=== PATIENT | female | born 1945 | race Caucasian/White ===

== ENCOUNTER 2020-01-25 08:00 | Outpatient (REF) | payer BC, SELFPAY ==
[2020-01-25 10:26] LABS: MANUAL DIFF FLAG NO
[2020-01-25 10:32] LABS: Basophils Absolute Auto 0.1 X10*3/uL (0.0-0.2); Basophils Percent Auto 0.8 % (0-2); Eosinophils Absolute Auto 0.2 X10*3/uL (0.0-0.4); Eosinophils Percent Auto 3.8 % (0-4); Hemoglobin 11.5 g/dl (12.0-16.0); Imm Gran Abs Auto 0.02 X10*3/uL (0.00-0.03); Imm Gran Pct Auto 0.3 % (0.0-0.4); Lymphocytes Absolute Auto 1.6 X10*3/uL (1.2-4.9); Lymphocytes Percent Auto 26.4 % (20-40); Mean Corpuscular HGB Conc 32.9 g/dl (31.0-35.0); Mean Corpuscular Hemoglobin 29.6 pg (27.0-33.0); Mean Corpuscular Volume 90.2 fL (80-98); Mean Platelet Volume 10.8 fL (9.4-12.3); Monocytes Absolute Auto 0.6 X10*3/uL (0.1-1.2); Monocytes Percent Auto 9.8 % (2-11); Neutrophils Absolute Auto 3.6 X10*3/uL (2.0-8.3); Neutrophils Percent Auto 58.9 % (45-73); Platelet Count 200 X10*3/uL (160-400); Red Blood Count 3.88 X10*6/uL (4.20-5.50); Red Cell Distribution Width 12.2 % (11.0-16.0); White Blood Count 6.1 X10*3/uL (4.8-10.8)
[2020-01-25 10:39] LABS: Glucose Urine UA NEG (NEG); Leukocyte Esterase Urine TRACE (NEG); Nitrite Urine NEG (NEG); Urine Blood NEG (NEG); Urine Ketones NEG (NEG); Urine Protein NEG (NEG-TRACE)
[2020-01-25 10:46] LABS: Appearance Urine CLEAR; Color Urine YELLOW
[2020-01-25 10:54] LABS: RBC Urine 0 /HPF (0); Renal Epithelial Cells Urine 1+ /LPF
[2020-01-25 10:56] LABS: Alanine Aminotransferase 18 U/L (0-31); Albumin Level 3.8 g/dL (3.5-5.0); Alkaline Phosphatase 45 U/L (39-117); Anion Gap 11 (12-20); Aspartate Amino Transferase 22 U/L (5-31); Bilirubin Total 0.7 mg/dL (0.0-1.0); Blood Urea Nitrogen 17 mg/dL (9-16); Calcium 8.6 mg/dL (8.4-10.2); Carbon Dioxide 29 mmol/L (22-29); Chloride 104 mmol/L (96-108); Cholesterol 143 mg/dL; Estimated Glomerular Filt Rate > 60; Glucose Fasting 91 mg/dL (60-99); HDL Cholesterol 38 mg/dL; LDL Cholesterol Calculated 78 mg/dl; Potassium 3.9 mmol/l (3.3-5.1); Sodium 140 mmol/L (135-145); Total Protein 6.4 g/dL (6.5-8.0); Triglycerides 138 mg/dL
[2020-01-25 11:11] LABS: Vitamin D 25-OH Total 60.5 ng/mL (>30)
== END 2020-01-25 08:01 | disposition home or self-care (01) ==
LOC: HO.10HDL 08:00
PROVIDERS: Visit Provider Internal Medicine
DX: E78.5 Hyperlipidemia, unspecified (principal); I10 Essential (primary) hypertension; K22.70 Barrett's esophagus without dysplasia; R01.1 Cardiac murmur, unspecified; D64.9 Anemia, unspecified; M85.80 Other specified disorders of bone density and structure, unspecified site; E55.9 Vitamin D deficiency, unspecified
CPT/HCPCS: 36415; 80053; 80061; 81001; 82306; 85025; 87086

== ENCOUNTER 2020-05-15 07:54 | Outpatient (REF) | payer BC, SELFPAY ==
[2020-05-15 10:18] LABS: MANUAL DIFF FLAG NO
[2020-05-15 10:23] LABS: Basophils Percent Auto 0.5 % (0-2); Eosinophils Absolute Auto 0.3 X10*3/uL (0.0-0.4); Eosinophils Percent Auto 4.3 % (0-4); Hematocrit 35.5 % (37-47); Hemoglobin 11.7 g/dl (12.0-16.0); Imm Gran Abs Auto 0.01 X10*3/uL (0.00-0.03); Imm Gran Pct Auto 0.2 % (0.0-0.4); Lymphocytes Absolute Auto 1.8 X10*3/uL (1.2-4.9); Lymphocytes Percent Auto 28.4 % (20-40); Mean Corpuscular Hemoglobin 30.3 pg (27.0-33.0); Mean Platelet Volume 10.6 fL (9.4-12.3); Monocytes Absolute Auto 0.6 X10*3/uL (0.1-1.2); Neutrophils Absolute Auto 3.7 X10*3/uL (2.0-8.3); Neutrophils Percent Auto 57.6 % (45-73); Platelet Count 196 X10*3/uL (160-400); Red Blood Count 3.86 X10*6/uL (4.20-5.50); Red Cell Distribution Width 12.7 % (11.0-16.0); White Blood Count 6.3 X10*3/uL (4.8-10.8)
[2020-05-15 10:43] LABS: Glucose Urine UA NEG (NEG); Leukocyte Esterase Urine NEG (NEG); Nitrite Urine NEG (NEG); Urine Blood NEG (NEG); Urine Ketones NEG (NEG); Urine Protein NEG (NEG-TRACE)
[2020-05-15 10:53] LABS: Appearance Urine CLEAR; Color Urine YELLOW
[2020-05-15 10:59] LABS: Alanine Aminotransferase 15 U/L (0-31); Albumin Level 3.8 g/dL (3.5-5.0); Alkaline Phosphatase 44 U/L (39-117); Anion Gap 10 (12-20); Aspartate Amino Transferase 20 U/L (5-31); Bilirubin Total 0.6 mg/dL (0.0-1.0); Blood Urea Nitrogen 18 mg/dL (9-16); Calcium 9.1 mg/dL (8.4-10.2); Carbon Dioxide 30 mmol/L (22-29); Chloride 104 mmol/L (96-108); Cholesterol 146 mg/dL; Estimated Glomerular Filt Rate > 60; Glucose Fasting 88 mg/dL (60-99); HDL Cholesterol 39 mg/dL; LDL Cholesterol Calculated 83 mg/dl; Sodium 140 mmol/L (135-145); Total Protein 6.4 g/dL (6.5-8.0); Triglycerides 123 mg/dL
[2020-05-15 11:06] LABS: TSH reflex Free T4 2.95 uIU/mL (0.32-4.0); Vitamin D 25-OH Total 55.3 ng/mL (>30)
[2020-05-19 06:32] LABS: Folate > 20.0 ng/mL (> or = 4.0); Vitamin B12 1058 pg/mL (200-900)
== END 2020-05-15 07:55 | disposition home or self-care (01) ==
LOC: HO.10HDL 07:54
PROVIDERS: Visit Provider Internal Medicine
DX: D64.9 Anemia, unspecified (principal); R06.00 Dyspnea, unspecified; I10 Essential (primary) hypertension; K22.70 Barrett's esophagus without dysplasia; E78.00 Pure hypercholesterolemia, unspecified; E55.9 Vitamin D deficiency, unspecified; E66.3 Overweight
CPT/HCPCS: 36415; 80053; 80061; 81003; 82306; 82607; 82746; 83880; 84443; 85025

== ENCOUNTER 2020-05-24 11:34 | Outpatient (REF) | payer BC, SELFPAY ==
--- NOTE | ~2020-05-24 | XR_ITS ---
EXAMINATION: XR CHEST CLINICAL INFORMATION: Dyspnea COMPARISON: None TECHNIQUE: 2 views of the chest were obtained. FINDINGS: The cardiac and mediastinal contours are normal. The lungs are clear. There is no pleural effusion or pneumothorax. There are degenerative changes of the spine. XR/XR chest 2V IMPRESSION: Unremarkable examination.
[2020-05-24 14:15] LABS: B Type Natriuretic Peptide 186 pg/mL (<100)
== END 2020-05-24 11:35 | disposition home or self-care (01) ==
LOC: HO.10HDL 11:34
PROVIDERS: Visit Provider Internal Medicine
DX: R06.00 Dyspnea, unspecified (principal)
CPT/HCPCS: 36415; 71046; 83880

== ENCOUNTER 2020-08-15 10:11 | Outpatient (REF) | payer BC, SELFPAY ==
--- NOTE | ~2020-08-15 | MM_ITS ---
EXAMINATION: MM SCREENING DIGITAL BREAST TOMOSYNTHESIS, BILATERAL CLINICAL INFORMATION: Screening. Asymptomatic. The lifetime risk of breast cancer based on the Tyrer-Cuzick Model is 5%. COMPARISON: Mammography: 04/22/2019, 03/03/2018, 06/12/2017, targeted left breast ultrasound 03/03/2018. TECHNIQUE: Digital breast tomosynthesis is performed in both the craniocaudal and mediolateral oblique views along with computer-aided detection (CAD). Synthesized 2D images are generated from the tomosynthesis. FINDINGS: There are scattered areas of fibroglandular density (ACR BI-RADS breast composition Category b). There are no significant masses, abnormal calcifications, or other abnormalities. Low left axillary tail node is similar to prior studies. There are no significant changes. MM/MM tomosynthesis screening BI IMPRESSION: No mammographic evidence of malignancy. ASSESSMENT: BI-RADS 2: Benign RECOMMENDATION: Routine annual mammography screening. This patient's information was entered into a reminder system with a target due date for their next mammogram.
== END 2020-08-15 10:12 | disposition home or self-care (01) ==
LOC: HO.MAMMO 10:11
PROVIDERS: Visit Provider Internal Medicine
DX: Z12.31 Encounter for screening mammogram for malignant neoplasm of breast (principal)
CPT/HCPCS: 77063; 77067

== ENCOUNTER 2020-09-14 10:10 | Outpatient (REF) | payer BC, SELFPAY ==
[2020-09-14 11:17] LABS: MANUAL DIFF FLAG NO
[2020-09-14 11:30] LABS: Glucose Urine UA NEG (NEG); Leukocyte Esterase Urine 1+ (NEG); Nitrite Urine NEG (NEG); PH 7.5 (5.0-8.0); UACC Culture Trigger YES; Urine Blood NEG (NEG); Urine Ketones NEG (NEG); Urine Protein NEG (NEG-TRACE)
[2020-09-14 11:31] LABS: Appearance Urine CLEAR; Color Urine YELLOW
[2020-09-14 11:40] LABS: RBC Urine 0 /HPF (0); Squamous Epithelial Cell Urine TRACE /LPF
[2020-09-14 11:45] LABS: Basophils Percent Auto 0.4 % (0-2); Eosinophils Absolute Auto 0.3 X10*3/uL (0.0-0.4); Eosinophils Percent Auto 3.7 % (0-4); Hematocrit 35.6 % (37-47); Hemoglobin 11.4 g/dl (12.0-16.0); Imm Gran Abs Auto 0.03 X10*3/uL (0.00-0.03); Imm Gran Pct Auto 0.4 % (0.0-0.4); Lymphocytes Absolute Auto 1.8 X10*3/uL (1.2-4.9); Lymphocytes Percent Auto 22.7 % (20-40); Mean Corpuscular Hemoglobin 28.6 pg (27.0-33.0); Mean Corpuscular Volume 89.4 fL (80-98); Mean Platelet Volume 10.5 fL (9.4-12.3); Monocytes Absolute Auto 0.7 X10*3/uL (0.1-1.2); Monocytes Percent Auto 8.4 % (2-11); Neutrophils Percent Auto 64.4 % (45-73); Platelet Count 225 X10*3/uL (160-400); Red Blood Count 3.98 X10*6/uL (4.20-5.50); Red Cell Distribution Width 12.3 % (11.0-16.0); White Blood Count 7.8 X10*3/uL (4.8-10.8)
[2020-09-14 11:53] LABS: Alanine Aminotransferase 17 U/L (0-31); Alkaline Phosphatase 47 U/L (39-117); Anion Gap 10 (12-20); Aspartate Amino Transferase 24 U/L (5-31); Bilirubin Total 0.5 mg/dL (0.0-1.0); Blood Urea Nitrogen 15 mg/dL (9-16); Calcium 9.2 mg/dL (8.4-10.2); Carbon Dioxide 28 mmol/L (22-29); Chloride 104 mmol/L (96-108); Cholesterol 157 mg/dL; Estimated Glomerular Filt Rate > 60; Glucose Fasting 89 mg/dL (60-99); HDL Cholesterol 43 mg/dL; LDL Cholesterol Calculated 89 mg/dl; Sodium 138 mmol/L (135-145); Total Protein 6.6 g/dL (6.5-8.0); Triglycerides 128 mg/dL
[2020-09-14 12:06] LABS: TSH reflex Free T4 1.54 uIU/mL (0.32-4.0); Vitamin D 25-OH Total 61.5 ng/mL (>30)
== END 2020-09-14 10:11 | disposition home or self-care (01) ==
LOC: HO.LAB 10:10
PROVIDERS: PCP Internal Medicine; Visit Provider Internal Medicine
DX: E55.9 Vitamin D deficiency, unspecified (principal); M85.80 Other specified disorders of bone density and structure, unspecified site; D64.9 Anemia, unspecified; I10 Essential (primary) hypertension; K22.70 Barrett's esophagus without dysplasia; E78.00 Pure hypercholesterolemia, unspecified; E66.3 Overweight
CPT/HCPCS: 36415; 80053; 80061; 81001; 81003; 82306; 84443; 85025; 87086

== ENCOUNTER 2020-11-17 18:34 | Outpatient (REF) | payer BC, SELFPAY | END 2020-11-17 18:35 | disposition home or self-care (01) | LOC: HO.LNP 18:34 | PROVIDERS: Visit Provider Family Medicine | DX: N39.0 Urinary tract infection, site not specified (principal); R30.0 Dysuria | CPT/HCPCS: 87086; 87088; 87186 ==

== ENCOUNTER 2021-01-15 10:04 | Outpatient (REF) | payer BC, SELFPAY ==
[2021-01-15 14:00] LABS: MANUAL DIFF FLAG NO
[2021-01-15 14:09] LABS: Appearance Urine CLEAR; Color Urine YELLOW; Glucose Urine UA NEG (NEG); Leukocyte Esterase Urine NEG (NEG); Nitrite Urine NEG (NEG); Specific Gravity - Urine <= 1.005 (1.005-1.025); Urine Blood NEG (NEG); Urine Ketones NEG (NEG); Urine Protein NEG (NEG-TRACE)
[2021-01-15 14:25] LABS: Alanine Aminotransferase 15 U/L (0-31); Albumin Level 3.7 g/dL (3.5-5.0); Alkaline Phosphatase 40 U/L (39-117); Anion Gap 10 (12-20); Aspartate Amino Transferase 23 U/L (5-31); Bilirubin Total 0.4 mg/dL (0.0-1.0); Blood Urea Nitrogen 20 mg/dL (9-16); Calcium 8.8 mg/dL (8.4-10.2); Carbon Dioxide 26 mmol/L (22-29); Chloride 104 mmol/L (96-108); Cholesterol 148 mg/dL; Estimated Glomerular Filt Rate > 60; Glucose Fasting 93 mg/dL (60-99); HDL Cholesterol 37 mg/dL; Iron 52 mcg/dL (30-160); LDL Cholesterol Calculated 83 mg/dl; Percent Iron Saturation 13 % (15-50); Potassium 4.2 mmol/L (3.3-5.1); Sodium 136 mmol/L (135-145); Total Iron Binding Capacity 416 mcg/dL (228-428); Triglycerides 143 mg/dL; Unsaturated Iron Binding 364 ug/dL
[2021-01-15 14:32] LABS: Basophils Percent Auto 0.4 % (0-2); Eosinophils Absolute Auto 0.3 X10*3/uL (0.0-0.4); Eosinophils Percent Auto 2.8 % (0-4); Hematocrit 22.4 % (37-47); Imm Gran Abs Auto 0.09 X10*3/uL (0.00-0.03); Imm Gran Pct Auto 0.9 % (0.0-0.4); Lymphocytes Absolute Auto 2.3 X10*3/uL (1.2-4.9); Lymphocytes Percent Auto 22.8 % (20-40); Mean Corpuscular Hemoglobin 30.1 pg (27.0-33.0); Mean Corpuscular Volume 91.1 fL (80-98); Mean Platelet Volume 10.7 fL (9.4-12.3); Monocytes Absolute Auto 0.9 X10*3/uL (0.1-1.2); Monocytes Percent Auto 8.6 % (2-11); Neutrophils Absolute Auto 6.4 X10*3/uL (2.0-8.3); Neutrophils Percent Auto 64.5 % (45-73); Platelet Count 244 X10*3/uL (160-400); Red Blood Count 2.46 X10*6/uL (4.20-5.50); Red Cell Distribution Width 13.7 % (11.0-16.0); White Blood Count 9.9 X10*3/uL (4.8-10.8)
[2021-01-15 14:35] LABS: Hemoglobin 7.4 g/dl (12.0-16.0)
[2021-01-15 14:46] LABS: TSH reflex Free T4 3.27 uIU/mL (0.32-4.0); Vitamin D 25-OH Total 56.5 ng/mL (>30)
[2021-01-15 15:03] LABS: Folate 18.7 ng/mL (> or = 4.0); Vitamin B12 575 pg/mL (200-900)
== END 2021-01-15 10:05 | disposition home or self-care (01) ==
LOC: HO.10HDL 10:04
PROVIDERS: Visit Provider Internal Medicine
DX: E78.00 Pure hypercholesterolemia, unspecified (principal); D64.9 Anemia, unspecified; I10 Essential (primary) hypertension; K22.70 Barrett's esophagus without dysplasia; E66.3 Overweight; E55.9 Vitamin D deficiency, unspecified; E53.8 Deficiency of other specified B group vitamins
CPT/HCPCS: 36415; 80053; 80061; 81003; 82306; 82607; 82746; 83540; 84443; 85025

== ENCOUNTER 2021-01-21 11:33 | Inpatient (IN) | payer BC, SELFPAY ==
[2021-01-21] VITALS (11 sets, daily range): BP systolic 119–153; BP diastolic 43–64; PULSE 70–140; RESP 14–20; TEMP 36.7–37.3; O2SAT 98–100; BMI 26.7
--- NOTE | 2021-01-21 | ECG_ITS ---
Test Reason : palpatations Blood Pressure : / mmHG Vent. Rate : 104 BPM Atrial Rate : 104 BPM P-R Int : 152 ms QRS Dur : 098 ms QT Int : 352 ms P-R-T Axes : 039 023 127 degrees QTc Int : 462 ms Sinus tachycardia Left ventricular hypertrophy with repolarization abnormality ( R in aVL , Sokolow-Gtz ) Abnormal ECG No previous ECGs available Referred By: Princess Joseph Electronically Signed By:MACI VILLEDA MD
--- NOTE | ~2021-01-21 | XR_ITS ---
EXAMINATION: XR CHEST CLINICAL INFORMATION: Shortness of breath COMPARISON: Previous chest x-ray most recent May 2020 TECHNIQUE: Frontal view of the chest was obtained. FINDINGS: The cardiac and mediastinal contours are normal. The lungs are clear. There is no pleural effusion. There are degenerative changes of the spine. XR/XR chest 1V IMPRESSION: Unremarkable examination.
[2021-01-21 12:57] LABS: MANUAL DIFF FLAG NO
[2021-01-21 12:59] LABS: Basophils Percent Auto 0.3 % (0-2); Eosinophils Absolute Auto 0.1 X10*3/uL (0.0-0.4); Eosinophils Percent Auto 0.5 % (0-4); Imm Gran Abs Auto 0.12 X10*3/uL (0.00-0.03); Imm Gran Pct Auto 0.9 % (0.0-0.4); Lymphocytes Absolute Auto 1.8 X10*3/uL (1.2-4.9); Lymphocytes Percent Auto 13.8 % (20-40); Mean Corpuscular HGB Conc 31.5 g/dl (31.0-35.0); Mean Corpuscular Hemoglobin 28.2 pg (27.0-33.0); Mean Corpuscular Volume 89.6 fL (80.0-98.0); Mean Platelet Volume 9.5 fL (9.4-12.3); NRBC Pct Auto 0.5 /100WBC (0.0-0.2); Neutrophils Absolute Auto 10.02 x10*3/uL (2.0-8.3); Neutrophils Percent Auto 76.5 % (45-73); Platelet Count 237 X10*3/uL (160-400); Red Blood Count 1.63 X10*6/uL (4.20-5.50); Red Cell Distribution Width 13.9 % (11.0-16.0); White Blood Count 13.1 X10*3/uL (4.8-10.8)
[2021-01-21 13:11] LABS: Hematocrit 14.6 % (37.0-47.0); Hemoglobin 4.6 g/dl (12.0-16.0)
[2021-01-21 13:12] LABS: Anion Gap 10 (12-20); Blood Urea Nitrogen 20 mg/dL (9-16); Calcium 8.5 mg/dL (8.4-10.2); Carbon Dioxide 24 mmol/L (22-29); Chloride 105 mmol/L (96-108); Creatinine Clr Calc Pharmacy 61.8; Estimated Glomerular Filt Rate > 60; Glucose Random 139 mg/dL (60-115); Potassium 4.3 mmol/L (3.3-5.1); Sodium 135 mmol/L (135-145)
--- NOTE | 2021-01-21 13:25 | ED_ITS ---
HPI - General Adult General Chief complaint: Dyspnea Stated complaint: sob Time Seen by Provider: 01/21/21 13:22 Source: patient Mode of arrival: ambulatory Limitations: no limitations History of Present Illness HPI narrative: 76-year-old female came in for evaluation of exertional dyspnea. Patient's symptoms started 4 days ago patient normally walk about 1 mile a day, for 4 days been having hard time to walk without difficulty breathing and some chest pain, patient decline bleeding from anywhere, claims she has normal bowel movements, decline using any anticoagulation patient appears to be pale, and found to have a low hemoglobin in the emergency department. Related Data Previous Rx's Medication Instructions Recorded amlodipine 2.5 mg tablet 2.5 mg PO DAILY 90 Days #90 tab 09/22/20 atorvastatin 10 mg tablet 10 mg PO DAILY 90 Days #90 tab 09/22/20 cholecalciferol (vitamin D3) 25 25 mcg PO DAILY 90 Days #90 cap 09/22/20 mcg (1,000 unit) capsule cyanocobalamin (vitamin B-12) 1,000 mcg PO DAILY 90 Days #90 tab 09/22/20 1,000 mcg tablet (Vitamin B-12) hydrochlorothiazide 12.5 mg tablet 12.5 mg PO DAILY 90 Days #90 tab 09/22/20 lisinopril 40 mg tablet 40 mg PO DAILY 90 Days #90 tab 09/22/20 omeprazole 20 mg capsule,delayed 20 mg PO DAILY 90 Days #90 cap 09/22/20 release potassium chloride 8 mEq 8 meq PO DAILY 90 Days #90 cap 09/22/20 capsule,extended release raloxifene 60 mg tablet 60 mg PO DAILY 90 Days #90 tab 09/22/20 Allergies Allergy/AdvReac Type Severity Reaction Status Date / Time enflurane [ENFLURANE] Allergy Severe Per Verified 11/17/20 10:27 Patient Liver toxicity piperacillin [Zosyn] Allergy Unknown Unknown Verified 11/17/20 10:27 tazobactam [Zosyn] Allergy Unknown Unknown Verified 11/17/20 10:27 Review of Systems Review of Systems: All other systems are reviewed and are negative Constitutional: Reports as per HPI and Reports no additional constitutional complaints Eyes: Reports as per HPI and Reports no additional eye complaints Reports system reviewed and no additional complaints, except as documented Cardiovascular: Reports as per HPI and Reports no additional cardiovascular complaints Respiratory: Reports as per HPI and Reports no additional respiratory complaints Gastrointestinal: Reports as per HPI and Reports no additional gastrointestinal complaints Genitourinary: Reports no additional female genitourinary complaints Musculoskeletal: Reports no additional musculoskeletal complaints Skin/Breast: Reports system reviewed and no additional complaints, except as docu Psychiatric: Reports no additional psychiatric complaints Endocrine: Reports no additional endocrine complaints Hematologic/Lymphatic: Reports no additional hematologic/lymphatic complaints Allergic/Immunologic: Reports no additional allergic/immunologic complaints Reports system reviewed and no additional complaints, except as documented and Reports Abnormal speech present [facility] Past Medical History Medical History Anemia Sevilla's esophagus Benign essential hypertension Cardiac murmur Drug induced constipation Hiatal hernia Osteopenia Overweight (BMI 25.0-29.9) Primary osteoarthritis of hand Pure hypercholesterolemia Vitamin B12 deficiency Vitamin D deficiency Surgical History H/O endoscopy History of appendectomy History of hysterectomy Family History Family History Father Hypertension Mother Stroke Social History Social History Housing: House Alcohol intake: never Patient Tobacco Use Status: Never used Tobacco Second Hand Smoke Exposure: Yes Use of substances other than those prescribed or required for medical reasons: No Advance Directives: Yes Advance Directives Information Provided: Yes Advance Directives on File: No service: No Current occupational status: retired Physical Exam Vital Signs: Vital Signs: Last Vital Signs Temp 98.0 F 01/21/21 11:39 Pulse 108 H 01/21/21 14:08 Resp 18 01/21/21 14:08 BP 148/58 H 01/21/21 14:08 Pulse Ox 99 01/21/21 14:08 Body Mass Index 26.7 Vital signs have been reviewed as appeared to be correct. Blood pressure normal. Heart rate elevated. Respiration rate normal. Temperature normal. Oxygen saturation normal. Appearance: Alert. Oriented X3. No acute distress. Head: Normal external exam. Normocephalic. Atraumatic. No [place] signs noted. No raccoon eyes noted Eyes: PERRLA. EOMI. Conjunctiva and sclera normal. Eyelids normal. ENT: TM's Normal. Pharynx normal. Uvula midline. Moist mucous membranes. No tr ismus noted. No drooling noted. No muffled voice noted. Neck: Normal inspection. Neck supple. FROM. No adenopathy. Thyroid Normal. No meningeal signs. No neck mass noted. CVS: Normal heart rate and rhythm. Heart sound normal. No murmurs noted. Pulses normal throughout. Respiratory: No respiratory distress. Painless inspiration. Breath sounds normal. No wheezes/rales/rhonchi noted. Chest nontender. No accessory muscle usage noted or decreased air movement noted. Abdomen: Soft and nontender. Bowel sounds normal in all 4 quadrants. No distention noted. No organomegaly noted. No visible injury noted. Rectal exam: No visible external hemorrhoids, no palpable internal hemorrhoid, no fissure fistula, black stool in the vault with guaiac positive. Back: No CVA tenderness. Full range of motion noted. Skin: Skin warm and dry. Pale. Normal skin turgor. No rashes/lesions/lacerations noted. Extremities: No lower extremity edema. Extremities exhibit normal range of motion. Extremities nontender. Neuro: Oriented X 3. Cranial nerve exam: II-XII are grossly intact No motor deficit. No sensory deficit. Reflexes normal. Course Course Course Narrative: Assessment and plan plan 76-year-old female came in for evaluation of exertional dyspnea for the past 4 days and found to have severe anemia that would require 2 units of blood, stool also found to be black patient also takes supplemental oral iron pills, no anticoagulation, admit for further GI consultation and blood transfusion. Medical Decision Making Lab Data Lab results reviewed: Yes I reviewed the patient's lab results. Result diagrams: 01/21/21 12:53 01/21/21 12:53 Labs: Lab Results 01/21/21 01/21/21 01/21/21 Range/Units 12:53 12:53 13:07 WBC 13.1 H (4.8-10.8) X10*3/uL RBC 1.63 L (4.20-5.50) X10*6/uL Hgb 4.6 L* (12.0-16.0) g/dl Hct 14.6 L* (37.0-47.0) % MCV 89.6 (80.0-98.0) fL MCH 28.2 (27.0-33.0) pg MCHC 31.5 (31.0-35.0) g/dl RDW 13.9 (11.0-16.0) % Plt Count 237 (160-400) X10*3/uL MPV 9.5 (9.4-12.3) fL Immature Gran % (Auto) 0.9 H (0.0-0.4) % Neut % (Auto) 76.5 H (45-73) % Lymph % (Auto) 13.8 L (20-40) % [place] % (Auto) 8.0 (2-11) % Eos % (Auto) 0.5 (0-4) % Baso % (Auto) 0.3 (0-2) % Lymph # (Auto) 1.8 (1.2-4.9) X10*3/uL [place] # (Auto) 1.0 (0.1-1.2) X10*3/uL Eos # (Auto) 0.1 (0.0-0.4) X10*3/uL Baso # (Auto) 0.0 (0.0-0.2) X10*3/uL Abs Immat Gran (auto) 0.12 H (0.00-0.03) X10*3/uL Absolute Neuts (auto) 10.02 H (2.0-8.3) x10*3/uL Absolute Nucleated RBC 0.070 H (0.0-0.012) X10*3/uL Nucleated RBC % (auto) 0.5 H (0.0-0.2) /100WBC PT (9.9-13.0) SEC INR (0.9-1.1) APTT (24.1-38.0) SEC Sodium 135 (135-145) mmol/L Potassium 4.3 (3.3-5.1) mmol/L Chloride 105 (96-108) mmol/L Carbon Dioxide 24 (22-29) mmol/L Anion Gap 10 L (12-20) BUN 20 H (9-16) mg/dL Creatinine 0.79 (0.5-1.4) mg/dL Estim Creat Clear Calc 61.8 Estimated GFR > 60 Random Glucose 139 H (60-115) mg/dL Calcium 8.5 (8.4-10.2) mg/dL Troponin I High Sens (<3.5-17.0) ng/L B-Natriuretic Peptide (<100) pg/mL Stool Occult Blood (NEGATIVE) COVID-19 (TIARA) Negative (Negative) COVID-19 Clin Com See Note Blood Type Antibody Screen Crossmatch 01/21/21 01/21/21 01/21/21 Range/Units 13:32 13:32 13:47 WBC (4.8-10.8) X10*3/uL RBC (4.20-5.50) X10*6/uL Hgb (12.0-16.0) g/dl Hct (37.0-47.0) % MCV (80.0-98.0) fL MCH (27.0-33.0) pg MCHC (31.0-35.0) g/dl RDW (11.0-16.0) % Plt Count (160-400) X10*3/uL MPV (9.4-12.3) fL Immature Gran % (Auto) (0.0-0.4) % Neut % (Auto) (45-73) % Lymph % (Auto) (20-40) % [place] % (Auto) (2-11) % Eos % (Auto) (0-4) % Baso % (Auto) (0-2) % Lymph # (Auto) (1.2-4.9) X10*3/uL [place] # (Auto) (0.1-1.2) X10*3/uL Eos # (Auto) (0.0-0.4) X10*3/uL Baso # (Auto) (0.0-0.2) X10*3/uL Abs Immat Gran (auto) (0.00-0.03) X10*3/uL Absolute Neuts (auto) (2.0-8.3) x10*3/uL Absolute Nucleated RBC (0.0-0.012) X10*3/uL Nucleated RBC % (auto) (0.0-0.2) /100WBC PT 11.8 (9.9-13.0) SEC INR 1.0 (0.9-1.1) APTT 27.5 (24.1-38.0) SEC Sodium (135-145) mmol/L Potassium (3.3-5.1) mmol/L Chloride (96-108) mmol/L Carbon Dioxide (22-29) mmol/L Anion Gap (12-20) BUN (9-16) mg/dL Creatinine (0.5-1.4) mg/dL Estim Creat Clear Calc Estimated GFR Random Glucose (60-115) mg/dL Calcium (8.4-10.2) mg/dL Troponin I High Sens 15.0 (<3.5-17.0) ng/L B-Natriuretic Peptide 293 H (<100) pg/mL Stool Occult Blood (NEGATIVE) COVID-19 (TIARA) (Negative) COVID-19 Clin Com Blood Type A Positive Antibody Screen NEGATIVE Crossmatch See Detail 01/21/21 Range/Units 14:10 WBC (4.8-10.8) X10*3/uL RBC (4.20-5.50) X10*6/uL Hgb (12.0-16.0) g/dl Hct (37.0-47.0) % MCV (80.0-98.0) fL MCH (27.0-33.0) pg MCHC (31.0-35.0) g/dl RDW (11.0-16.0) % Plt Count (160-400) X10*3/uL MPV (9.4-12.3) fL Immature Gran % (Auto) (0.0-0.4) % Neut % (Auto) (45-73) % Lymph % (Auto) (20-40) % [place] % (Auto) (2-11) % Eos % (Auto) (0-4) % Baso % (Auto) (0-2) % Lymph # (Auto) (1.2-4.9) X10*3/uL [place] # (Auto) (0.1-1.2) X10*3/uL Eos # (Auto) (0.0-0.4) X10*3/uL Baso # (Auto) (0.0-0.2) X10*3/uL Abs Immat Gran (auto) (0.00-0.03) X10*3/uL Absolute Neuts (auto) (2.0-8.3) x10*3/uL Absolute Nucleated RBC (0.0-0.012) X10*3/uL Nucleated RBC % (auto) (0.0-0.2) /100WBC PT (9.9-13.0) SEC INR (0.9-1.1) APTT (24.1-38.0) SEC Sodium (135-145) mmol/L Potassium (3.3-5.1) mmol/L Chloride (96-108) mmol/L Carbon Dioxide (22-29) mmol/L Anion Gap (12-20) BUN (9-16) mg/dL Creatinine (0.5-1.4) mg/dL Estim Creat Clear Calc Estimated GFR Random Glucose (60-115) mg/dL Calcium (8.4-10.2) mg/dL Troponin I High Sens (<3.5-17.0) ng/L B-Natriuretic Peptide (<100) pg/mL Stool Occult Blood POSITIVE (NEGATIVE) COVID-19 (TIARA) (Negative) COVID-19 Clin Com Blood Type Antibody Screen Crossmatch ECG Data Attestation: I personally reviewed and interpreted this ECG as follows: Interpretation: Sinus tachycardia at 1 4 beats per minutes, normal axis deviation, normal intervals, no ST-T changes. Discharge Plan Discharge Clinical Impression: Anemia, GI bleed Patient Disposition: Admitted As Inpatient
[2021-01-21 13:34] LABS: COVID-19 Test Negative (Negative); IDNOW Serial# 9DD0AD1C
[2021-01-21 13:46] LABS: Prothrombin Time 11.8 SEC (9.9-13.0)
[2021-01-21 13:48] LABS: Partial Thromboplastin Time 27.5 SEC (24.1-38.0)
[2021-01-21 14:00] LABS: B Type Natriuretic Peptide 293 pg/mL (<100)
[2021-01-21 14:14] LABS: OBS1 POSITIVE (NEGATIVE)
[2021-01-21 14:15] LABS: OBS Int Ctl Valid YES
--- NOTE | 2021-01-21 15:03 | P.HPHOSP_ITS ---
History of Present Illness Date of Service: 01/21/21 Chief Complaint: sob 76-year-old female presented with shortness of breath on exertion. Patient is usually in good health, walks 1.5 miles daily. She noticed that about 5 days prior to presentation her locking and urine started to decrease. She walked less and less, she had to stop to catch her breath. On day of admission patient noticed just on any slight exertion she would get short of breath and was also feeling palpitations. She denies any chest pain, nausea, vomiting. She states she may have darker stools than usual but she is unsure about this. in ED found to have hgb of 4.6, labs consistnet with iron defeciency, guiac positive. Review of Systems Review of Systems: Constitutional: Denies fever, denies Chills Eyes: denies blurry vision ENT: denies sore throat CVS: denies chest pain Respiratory: dyspnea GI: no abdominal pain : denies dysuria MSK: denies neck pain Skin: denies rash Neuro: denies specific motor weakness Psych: denies suicidal ideation Endocrine: denies heat/cold intolerance Hematologic: denies easy bleeding Allergy: denies hives COUNTS INCLUDE 234 BEDS AT THE [facility] Medical History Anemia Sevilla's esophagus Benign essential hypertension Cardiac murmur Hiatal hernia Osteopenia Overweight (BMI 25.0-29.9) Primary osteoarthritis of hand Pure hypercholesterolemia Vitamin B12 deficiency Vitamin D deficiency Family History Father Hypertension Mother Stroke Pertinent family history: . Surgical History H/O endoscopy History of appendectomy History of hysterectomy Social History Housing: House Alcohol intake: never Patient Tobacco Use Status: Never used Tobacco Second Hand Smoke Exposure: Yes Use of substances other than those prescribed or required for medical reasons: No Advance Directives: Yes Advance Directives Information Provided: Yes Advance Directives on File: No service: No Current occupational status: retired Meds Allergies Allergy/AdvReac Type Severity Reaction Status Date / Time enflurane [ENFLURANE] Allergy Severe Per Verified 11/17/20 10:27 Patient Liver toxicity piperacillin [Zosyn] Allergy Unknown Unknown Verified 11/17/20 10:27 tazobactam [Zosyn] Allergy Unknown Unknown Verified 11/17/20 10:27 Active Medications: Current Medications Amlodipine Besylate (Amlodipine Besylate 2.5 Mg Tablet) 2.5 mg PO DAILY SERGEY; Protocol Atorvastatin Calcium (Atorvastatin Calcium 10 Mg Tablet) 10 mg PO DAILY [facility] Cyanocobalamin (Cyanocobalamin (Vitamin B-12) 1,000 Mcg Tablet) 1,000 mcg PO DAILY SERGEY Lisinopril (Lisinopril 40 Mg Tablet) 40 mg PO DAILY SERGEY; Protocol Pantoprazole Sodium (Pantoprazole Sodium 40 Mg/10 Ml Vial) 40 mg IVPUSH BID@0630,1630 [facility] Vitamin D (Cholecalciferol (Vitamin D3) 25 Mcg Tablet) 25 mcg PO DAILY [facility] Physical Exam Vital Signs and Narrative: Vital Signs: Last Vital Signs Temp 98.8 F 01/21/21 15:00 Pulse 83 01/21/21 15:00 Resp 14 01/21/21 15:00 BP 141/64 H 01/21/21 15:00 Pulse Ox 99 01/21/21 14:08 Body Mass Index 26.7 General: no acute distress HEENT: atraumatic Neck: normal to visual inspection CVS: S1, S2, Rapid, +murmur Resp: CTA bilateral Chest: non tender GI: soft, non tender, non distended : no CVA tenderness Skin: no rashes Extremities: no edema Neuro: Oriented X3, grossly intact Psych: cooperative Results Labs CBC and Chem 7: 01/21/21 12:53 01/21/21 12:53 Labs: Laboratory Results - last 24 hr 01/21/21 01/21/21 01/21/21 12:53 12:53 13:07 MCV 89.6 MCH 28.2 MCHC 31.5 RDW 13.9 Plt Count 237 MPV 9.5 Immature Gran % (Auto) 0.9 H Neut % (Auto) 76.5 H Lymph % (Auto) 13.8 L [place] % (Auto) 8.0 Eos % (Auto) 0.5 Baso % (Auto) 0.3 Lymph # (Auto) 1.8 [place] # (Auto) 1.0 Eos # (Auto) 0.1 Baso # (Auto) 0.0 Abs Immat Gran (auto) 0.12 H Absolute Neuts (auto) 10.02 H Absolute Nucleated RBC 0.070 H Nucleated RBC % (auto) 0.5 H PT INR APTT Anion Gap 10 L Estim Creat Clear Calc 61.8 Estimated GFR > 60 Random Glucose 139 H Calcium 8.5 Troponin I High Sens B-Natriuretic Peptide Stool Occult Blood COVID-19 (TIARA) Negative COVID-[facility] Clin Com See Note Blood Type Antibody Screen Crossmatch 01/21/21 01/21/21 01/21/21 13:32 13:32 13:47 MCV MCH MCHC RDW Plt Count MPV Immature Gran % (Auto) Neut % (Auto) Lymph % (Auto) [place] % (Auto) Eos % (Auto) Baso % (Auto) Lymph # (Auto) [place] # (Auto) Eos # (Auto) Baso # (Auto) Abs Immat Gran (auto) Absolute Neuts (auto) Absolute Nucleated RBC Nucleated RBC % (auto) PT 11.8 INR 1.0 APTT 27.5 Anion Gap Estim Creat Clear Calc Estimated GFR Random Glucose Calcium Troponin I High Sens 15.0 B-Natriuretic Peptide 293 H Stool Occult Blood COVID-19 (TIARA) COVID-[facility] Com Blood Type A Positive Antibody Screen NEGATIVE Crossmatch See Detail 01/21/21 14:10 MCV MCH MCHC RDW Plt Count MPV Immature Gran % (Auto) Neut % (Auto) Lymph % (Auto) [place] % (Auto) Eos % (Auto) Baso % (Auto) Lymph # (Auto) [place] # (Auto) Eos # (Auto) Baso # (Auto) Abs Immat Gran (auto) Absolute Neuts (auto) Absolute Nucleated RBC Nucleated RBC % (auto) PT INR APTT Anion Gap Estim Creat Clear Calc Estimated GFR Random Glucose Calcium Troponin I High Sens B-Natriuretic Peptide Stool Occult Blood POSITIVE COVID-19 (TIARA) [employer] Blood Type Antibody Screen Crossmatch Assessment and Plan (1) GI bleed: Status: Acute 76F presented with sob, found to have significant anemia Symptomatic anemia Likely due to subacute to chronic blood loss from GI bleed IV PPI Monitor CBC Transfusing 2 units PRBC GI eval History of Sevilla's esophagus Last EGD about 2 years ago Continue PPI Hypertension Lisinopril, amlodipine Hyperlipidemia Lipitor DVT prophylaxis-mechanical due to GI bleed DNR DNI Quality Stroke Does the patient have a stroke diagnosis?: No VTE Prior VTE?: No VTE Risk Level:: Medical - moderate - high VTE Device Contraindication: N/A - Device Ordered VTE Drug Contraindication: Treatment Not Indicated
[2021-01-21] MEDS: Pantoprazole Sodium 40 MG/10 ML VIAL IVPUSH (15:30)
[2021-01-22] VITALS (8 sets, daily range): BP systolic 87–149; BP diastolic 41–53; PULSE 66–90; RESP 15–18; TEMP 36.3–37.3; O2SAT 96–98
--- NOTE | 2021-01-22 | ECG_ITS ---
Test Reason : st depression Blood Pressure : / mmHG Vent. Rate : 063 BPM Atrial Rate : 063 BPM P-R Int : 148 ms QRS Dur : 098 ms QT Int : 446 ms P-R-T Axes : 051 018 047 degrees QTc Int : 456 ms Normal sinus rhythm Minimal voltage criteria for LVH, may be normal variant ( R in aVL ) Nonspecific ST and T wave abnormality Abnormal ECG When compared with ECG of 21-JAN-2021 11:45, Vent. rate has decreased BY [address] less depressed in Inferior leads Lateral leads Referred By: Bryanna Harkins Electronically Signed By:MACI VILLEDA MD
[2021-01-22] MEDS: 0.9 % Sodium Chloride Flush 3 ML SYRINGE IVFLUSH ×4 (00:57→19:46)
[2021-01-22 05:46] LABS: Hematocrit 21.3 % (37.0-47.0); Mean Corpuscular HGB Conc 32.9 g/dl (31.0-35.0); Mean Corpuscular Hemoglobin 29.8 pg (27.0-33.0); Mean Corpuscular Volume 90.6 fL (80.0-98.0); Mean Platelet Volume 9.8 fL (9.4-12.3); NRBC Pct Auto 0.3 /100WBC (0.0-0.2); Platelet Count 183 X10*3/uL (160-400); Red Blood Count 2.35 X10*6/uL (4.20-5.50); Red Cell Distribution Width 14.3 % (11.0-16.0); White Blood Count 9.8 X10*3/uL (4.8-10.8)
[2021-01-22 06:02] LABS: Anion Gap 10 (12-20); Blood Urea Nitrogen 18 mg/dL (9-16); Calcium 7.9 mg/dL (8.4-10.2); Carbon Dioxide 24 mmol/L (22-29); Chloride 109 mmol/L (96-108); Estimated Glomerular Filt Rate > 60; Glucose Fasting 99 mg/dL (60-99); Potassium 4.3 mmol/L (3.3-5.1); Sodium 139 mmol/L (135-145)
[2021-01-22] MEDS: Pantoprazole Sodium 40 MG/10 ML VIAL IVPUSH (06:47)
[2021-01-22] MEDS: Atorvastatin Calcium 10 MG TABLET PO (07:42)
[2021-01-22] MEDS: Cholecalciferol (Vitamin D3) 25 MCG TABLET PO (07:42)
[2021-01-22] MEDS: lisinopriL 40 MG TABLET PO (07:42)
[2021-01-22] MEDS: amLODIPine Besylate 2.5 MG TABLET PO (07:42)
--- NOTE | 2021-01-22 07:42 | MHC.SHP ---
Pre-Procedural Eval Section A Date of Service: 01/22/21 The patient is an INPATIENT: Yes The History & Physical has been completed within 30 days and I have reviewed it.: Yes Section B Chief Complaint: Anemia Allergies: Allergies Allergy/AdvReac Type Severity Reaction Status Date / Time enflurane [ENFLURANE] Allergy Severe Per Verified 11/17/20 10:27 Patient Liver toxicity piperacillin [Zosyn] Allergy Unknown Unknown Verified 11/17/20 10:27 tazobactam [Zosyn] Allergy Unknown Unknown Verified 11/17/20 10:27 Plan I have reviewed the history and physical and performed a pertinent physical examination on my patient. No changes have occurred unless specified.
--- NOTE | 2021-01-22 07:42 | PM.EVENT ---
Event Note Date of Service: 01/22/21 Event Note: GI Consult-Full note dictated Imp: Significant anemia with reported Heme + dark stool in patient with known hiatal hernia and Sevilla's, as well as colon AVM's. Rec: Given report of dark and Heme + stool with a relatively acute drop in Hgb, will have her undergo an EGD today. Full consent has been obtained from her for this, including risks of bleeding and perforation. If this is nonrevealing she will then need a colonoscopy. Thanks
[2021-01-22] MEDS: Cyanocobalamin (Vitamin B-12) 1,000 MCG TABLET 1000 MCG PO (07:43)
--- NOTE | 2021-01-22 10:50 | HO.PM.IMPN ---
Subjective Subjective Date of Service: 01/22/21 Interval History: cc: melena, sob interval history: feels better after transfusion Cardiovascular Cardiovascular: Reports no additional cardiovascular complaints Respiratory Respiratory: Reports no additional respiratory complaints Physical Exam Vital Signs: Vital Signs: Last Vital Signs Temp 99.1 F 01/21/21 18:21 Pulse 70 01/22/21 07:42 Resp 18 01/22/21 06:47 BP 117/53 L 01/22/21 07:42 Pulse Ox 96 01/22/21 06:47 Body Mass Index 26.7 General: AO X 3, no acute distress Resp: CTA bilateral, no accessory muscles used CVS: S1,S2,RRR, murmur GI: soft, non tender, non distended Neuro: motor grossly intact, alert Psych: appropriate affect, appropriate insight Objective Data Active Medications Amlodipine Besylate (Amlodipine Besylate 2.5 Mg Tablet) 2.5 mg PO DAILY [facility]; Protocol Last Admin: 01/22/21 07:42 Dose: 2.5 mg Documented by: JYOTI Atorvastatin Calcium (Atorvastatin Calcium 10 Mg Tablet) 10 mg PO DAILY [facility] Last Admin: 01/22/21 07:42 Dose: 10 mg Documented by: JYOTI Cyanocobalamin (Cyanocobalamin (Vitamin B-12) 1,000 Mcg Tablet) 1,000 mcg PO DAILY [facility] Last Admin: 01/22/21 07:43 Dose: 1,000 mcg Documented by: JYOTI Lisinopril (Lisinopril 40 Mg Tablet) 40 mg PO DAILY [facility]; Protocol Last Admin: 01/22/21 07:42 Dose: 40 mg Documented by: JYOTI Pantoprazole Sodium (Pantoprazole Sodium 40 Mg/10 Ml Vial) 40 mg IVPUSH BID@4330,0700 [facility] Last Admin: 01/22/21 06:47 Dose: 40 mg Documented by: MANIKAYohannes Sodium Chloride (0.9 % Sodium Chloride Flush 3 Ml Syringe) 3 ml IVFLUSH QSHIFT [facility] Last Admin: 01/22/21 07:42 Dose: 3 ml Documented by: JYOTI Vitamin D (Cholecalciferol (Vitamin D3) 25 Mcg Tablet) 25 mcg PO DAILY [facility] Last Admin: 01/22/21 07:42 Dose: 25 mcg Documented by: HO.FERSTE Labs CBC & Chem 7: 01/22/21 05:36 01/22/21 05:36 Labs: Laboratory Results - last 24 hr 01/21/21 01/21/21 01/21/21 12:53 12:53 13:07 MCV 89.6 MCH 28.2 MCHC 31.5 RDW 13.9 Plt Count 237 MPV 9.5 Immature Gran % (Auto) 0.9 H Neut % (Auto) 76.5 H Lymph % (Auto) 13.8 L [place] % (Auto) 8.0 Eos % (Auto) 0.5 Baso % (Auto) 0.3 Lymph # (Auto) 1.8 [place] # (Auto) 1.0 Eos # (Auto) 0.1 Baso # (Auto) 0.0 Abs Immat Gran (auto) 0.12 H Absolute Neuts (auto) 10.02 H Absolute Nucleated RBC 0.070 H Nucleated RBC % (auto) 0.5 H Smear Path Review SEE NOTE PT INR APTT Anion Gap 10 L Estim Creat Clear Calc 61.8 Estimated GFR > 60 Random Glucose 139 H Fasting Glucose Calcium 8.5 Troponin I High Sens B-Natriuretic Peptide Stool Occult Blood COVID-19 (TIARA) Negative COVID-19 Clin Com See Note Blood Type Antibody Screen Crossmatch 01/21/21 01/21/21 01/21/21 13:32 13:32 13:47 MCV MCH MCHC RDW Plt Count MPV Immature Gran % (Auto) Neut % (Auto) Lymph % (Auto) [place] % (Auto) Eos % (Auto) Baso % (Auto) Lymph # (Auto) [place] # (Auto) Eos # (Auto) Baso # (Auto) Abs Immat Gran (auto) Absolute Neuts (auto) Absolute Nucleated RBC Nucleated RBC % (auto) Smear Path Review PT 11.8 INR 1.0 APTT 27.5 Anion Gap Estim Creat Clear Calc Estimated GFR Random Glucose Fasting Glucose Calcium Troponin I High Sens 15.0 B-Natriuretic Peptide 293 H Stool Occult Blood COVID-19 (TIARA) COVID-19 Clin Com Blood Type A Positive Antibody Screen NEGATIVE Crossmatch See Detail 01/21/21 01/22/21 01/22/21 14:10 05:36 05:36 MCV 90.6 MCH 29.8 MCHC 32.9 RDW 14.3 Plt Count 183 MPV 9.8 Immature Gran % (Auto) Neut % (Auto) Lymph % (Auto) [place] % (Auto) Eos % (Auto) Baso % (Auto) Lymph # (Auto) [place] # (Auto) Eos # (Auto) Baso # (Auto) Abs Immat Gran (auto) Absolute Neuts (auto) Absolute Nucleated RBC 0.030 H Nucleated RBC % (auto) 0.3 H Smear Path Review PT INR APTT Anion Gap 10 L Estim Creat Clear Calc 61.0 Estimated GFR > 60 Random Glucose Fasting Glucose 99 Calcium 7.9 L D Troponin I High Sens B-Natriuretic Peptide Stool Occult Blood POSITIVE COVID-19 (TIARA) COVID-19 Clin Com Blood Type Antibody Screen Crossmatch Assessment and Plan (1) Sevilla's esophagus: Status: Acute (2) GI bleed: Status: Acute Assessment and Plan: 76F presented with sob, found to have significant anemia acute blood loss anemia from GI bleed continue IV PPI Monitor CBC Transfused 2 units PRBC, hgb improved appropriately from 4.6 to 7 plan for EGD today History of Sevilla's esophagus Last EGD about 2 years ago Continue PPI Hypertension Lisinopril, amlodipine Hyperlipidemia Lipitor DVT prophylaxis-mechanical due to GI bleed DNR DNI Quality Stroke Does the patient have a stroke diagnosis?: No VTE Prior VTE?: No VTE Risk Level:: Medical - moderate - high VTE Device Contraindication: N/A - Device Ordered VTE Drug Contraindication: Treatment Not Indicated
--- NOTE | 2021-01-22 11:47 | PC.NURSE ---
report given to sss
--- NOTE | 2021-01-22 12:29 | PC.NURSE ---
call for report rn to call back
--- NOTE | 2021-01-22 12:50 | PC.NURSE ---
rn to rn given to panchito graves aware of plan of car for admission to hosp
--- NOTE | 2021-01-22 14:00 | P.CONAN_ITS ---
[facility] Active Problems Active Problems: All Active Problems (Updated 01/21/21 @ 15:11 by Sherman Alvarenga MD) GI bleed (Acute) Vitamin B12 deficiency (Acute) Overweight (BMI 25.0-29.9) (Acute) Primary osteoarthritis of hand (Acute) Vitamin D deficiency (Acute) Osteopenia (Acute) Anemia (Acute) Cardiac murmur (Acute) Hiatal hernia (Acute) Sevilla's esophagus (Acute) Benign essential hypertension (Acute) Pure hypercholesterolemia (Acute) Past Medical History Medical History Anemia Sevilla's esophagus Benign essential hypertension Cardiac murmur Hiatal hernia Osteopenia Overweight (BMI 25.0-29.9) Primary osteoarthritis of hand Pure hypercholesterolemia Vitamin B12 deficiency Vitamin D deficiency Family History Family History Father Hypertension Mother Stroke Family history of problems with anesthesia: No Surgical History Surgical History H/O endoscopy History of appendectomy History of hysterectomy History of Problems with Anesthesia: No Social History Social History Housing: House Alcohol intake: never Patient Tobacco Use Status: Never used Tobacco Second Hand Smoke Exposure: No Advance Directives Date on File: 01/22/21 service: No Current occupational status: retired [employer] Allergies Allergy/AdvReac Type Severity Reaction Status Date / Time enflurane [ENFLURANE] Allergy Severe Per Verified 11/17/20 10:27 Patient Liver toxicity piperacillin [Zosyn] Allergy Unknown Unknown Verified 11/17/20 10:27 tazobactam [Zosyn] Allergy Unknown Unknown Verified 11/17/20 10:27 Active Medications: Current Medications Amlodipine Besylate (Amlodipine Besylate 2.5 Mg Tablet) 2.5 mg PO DAILY [facility]; Protocol Last Admin: 01/22/21 07:42 Dose: 2.5 mg Documented by: Atorvastatin Calcium (Atorvastatin Calcium 10 Mg Tablet) 10 mg PO DAILY [facility] Last Admin: 01/22/21 07:42 Dose: 10 mg Documented by: Cyanocobalamin (Cyanocobalamin (Vitamin B-12) 1,000 Mcg Tablet) 1,000 mcg PO DAILY [facility] Last Admin: 01/22/21 07:43 Dose: 1,000 mcg Documented by: Lisinopril (Lisinopril 40 Mg Tablet) 40 mg PO DAILY [facility]; Protocol Last Admin: 01/22/21 07:42 Dose: 40 mg Documented by: Pantoprazole Sodium (Pantoprazole Sodium 40 Mg/10 Ml Vial) 40 mg IVPUSH BID@0630,1630 [facility] Last Admin: 01/22/21 06:47 Dose: 40 mg Documented by: Sodium Chloride (0.9 % Sodium Chloride Flush 3 Ml Syringe) 3 ml IVFLUSH QSHIFT [facility] Last Admin: 01/22/21 07:42 Dose: 3 ml Documented by: Vitamin D (Cholecalciferol (Vitamin D3) 25 Mcg Tablet) 25 mcg PO DAILY [facility] Last Admin: 01/22/21 07:42 Dose: 25 mcg Documented by: Exam Exam Date and Time: January 22, 2021 1400 Height,Weight and Vital Signs: Height 5 ft 6 in Weight 75.189 kg Last Vital Signs Temp 98.1 F 01/22/21 13:39 Pulse 90 01/22/21 13:39 Resp 16 01/22/21 13:39 BP 149/49 H 01/22/21 13:39 Pulse Ox 98 01/22/21 13:39 Pertinent Lab Results Pertinent Lab Results: Laboratory Tests 01/21/21 01/21/21 01/21/21 12:53 12:53 13:07 WBC 13.1 H RBC 1.63 L Hgb 4.6 L* Hct 14.6 L* MCV 89.6 MCH 28.2 MCHC 31.5 RDW 13.9 Plt Count 237 MPV 9.5 Immature Gran % (Auto) 0.9 H Neut % (Auto) 76.5 H Lymph % (Auto) 13.8 L [place] % (Auto) 8.0 Eos % (Auto) 0.5 Baso % (Auto) 0.3 Lymph # (Auto) 1.8 [place] # (Auto) 1.0 Eos # (Auto) 0.1 Baso # (Auto) 0.0 Abs Immat Gran (auto) 0.12 H Absolute Neuts (auto) 10.02 H Absolute Nucleated RBC 0.070 H Nucleated RBC % (auto) 0.5 H Smear Path Review SEE NOTE PT INR APTT Sodium 135 Potassium 4.3 Chloride 105 Carbon Dioxide 24 Anion Gap 10 L BUN 20 H Creatinine 0.79 Estim Creat Clear Calc 61.8 Estimated GFR > 60 Random Glucose 139 H Fasting Glucose Calcium 8.5 Troponin I High Sens B-Natriuretic Peptide Stool Occult Blood COVID-19 (TIARA) Negative [employer] See Note Blood Type Antibody Screen Crossmatch 01/21/21 01/21/21 01/21/21 13:32 13:32 13:47 WBC RBC Hgb Hct MCV MCH MCHC RDW Plt Count MPV Immature Gran % (Auto) Neut % (Auto) Lymph % (Auto) [place] % (Auto) Eos % (Auto) Baso % (Auto) Lymph # (Auto) [place] # (Auto) Eos # (Auto) Baso # (Auto) Abs Immat Gran (auto) Absolute Neuts (auto) Absolute Nucleated RBC Nucleated RBC % (auto) Smear Path Review PT 11.8 INR 1.0 APTT 27.5 Sodium Potassium Chloride Carbon Dioxide Anion Gap BUN Creatinine Estim Creat Clear Calc Estimated GFR Random Glucose Fasting Glucose Calcium Troponin I High Sens 15.0 B-Natriuretic Peptide 293 H Stool Occult Blood COVID-19 (TIARA) [place] Blood Type A Positive Antibody Screen NEGATIVE Crossmatch See Detail 01/21/21 01/22/21 01/22/21 14:10 05:36 05:36 WBC 9.8 RBC 2.35 L D Hgb 7.0 L* D Hct 21.3 L D MCV 90.6 MCH 29.8 MCHC 32.9 RDW 14.3 Plt Count 183 MPV 9.8 Immature Gran % (Auto) Neut % (Auto) Lymph % (Auto) [place] % (Auto) Eos % (Auto) Baso % (Auto) Lymph # (Auto) [place] # (Auto) Eos # (Auto) Baso # (Auto) Abs Immat Gran (auto) Absolute Neuts (auto) Absolute Nucleated RBC 0.030 H Nucleated RBC % (auto) 0.3 H Smear Path Review PT INR APTT Sodium 139 Potassium 4.3 Chloride 109 H Carbon Dioxide 24 Anion Gap 10 L BUN 18 H Creatinine 0.80 Estim Creat Clear Calc 61.0 Estimated GFR > 60 Random Glucose Fasting Glucose 99 Calcium 7.9 L D Troponin I High Sens B-Natriuretic Peptide Stool Occult Blood POSITIVE COVID-19 (TIARA) [employer] Blood Type Antibody Screen Crossmatch Airway Mallampati Class: II TM Dist: >3cm Neck ROM: Full Partial: Upper and Lower Heart: rrr Lungs: cta Assessment and Plan Assessment Anesthesia Assessment: Anesthesia Plan Discussed Final Anesthetic Review Family History of Problems with Anesthesia: No History of Problems with Anesthesia: No NPO: Yes ASA Class: III Final Preanesthetic Review: No Changes in Pt Med Stat, Meds/Allgs Chart Reviewed and Consent Obtained/Reviewed Patient Risk: Intermediate Procedure Risk: Intermediate Anesthetic Plan Anesthetic Plan: MAC: Disposition: Standard PACU
--- NOTE | 2021-01-22 15:44 | P.BOP_ITS ---
Brief Operative Note Date of Service: 01/22/21 Pre-op diagnosis: Anemia, ? of melena Post-op diagnosis: other (Hiatal hernia, Gastritis, Gastric polyps, Sevilla's esophagus) Procedure: EGD Surgeon: Emiliano Herrera Anesthesia: MAC Was an Vocational Rehabilitation Administrator used for this Procedure?: No Estimated blood loss (mL): 0 Pathology: none sent Condition: stable Disposition: PACU
--- NOTE | 2021-01-22 15:50 | PM.EVENT ---
Event Note Date of Service: 01/22/21 Event Note: GI EGD-Full note dictated Findings: 1. Moderate-sized hiatal hernia 2. Sevilla's from 30-34cm-not biopsied as she had an EGD with biopsies in 08/2019 3. Gastric polyps 4. Mild erythema in antrum-no erosions nor ulceration 5. No blood nor coffee grounds seen Rec: Start po BID PPI, advance diet, and start Iron BID. I am going to hold off on colonoscopy for the time being given all of her previous exams, including 2017 with multiple nonbleeding AVM's noted at that time. Before repeating a colonoscopy with ablation of any colonic AVM's I will have her undergo a small bowel video capsule study as an outpatient as long as she is stable. Given the reported dark stool I'd be more concerned about a possible small bowel source of bleeding. If her Hgb increases and remains stable on oral Iron we could then electively decide if she needs any further endoscopic intervention. Clearly if her Hgb drops we could then have her undergo a colonoscopy and/or small bowel enteroscopy for treatment of any small bowel lesions on a sooner basis. Thanks
[2021-01-22] MEDS: Omeprazole 20 MG CAPSULE.DR PO (16:41)
[2021-01-22] MEDS: Ferrous Sulfate 324 MG TABLET.DR PO (16:41)
[2021-01-22 17:04] LABS: Troponin-I High Sensitivity 10.5 ng/L (<3.5-17.0)
--- NOTE | 2021-01-22 21:19 | OP_ITS ---
SURGEON: [facility] PREOPERATIVE DIAGNOSIS: POSTOPERATIVE DIAGNOSIS: PROCEDURE PERFORMED: Esophagogastroduodenoscopy. ESTIMATED BLOOD LOSS: COMPLICATIONS: ANESTHESIA: Monitored anesthesia care. ASSISTANTS: SPECIMENS: PREOPERATIVE DIAGNOSES: Anemia and dark stool. POSTOPERATIVE DIAGNOSES: Anemia and dark stool, hiatal hernia, Sevilla's esophagus, gastric polyps, and minimal gastritis. DESCRIPTION OF PROCEDURE: The patient was placed in the left lateral decubitus position. The Olympus video gastroscope was passed in the posterior oropharynx and upper esophagus under direct vision. The scope was passed slowly into the distal esophagus. The gastroesophageal junction appeared at 34 cm. Extending from this to 30 cm, was a previously known segment of Sevilla's mucosa without any overlying lesions nor inflammation. The squamocolumnar junction was seen at 30 cm. I did not obtain biopsies as she had just had biopsies done in 2019, which were negative for dysplasia. The scope entered in the stomach. There was a moderate-sized hiatal hernia. Multiple hyperplastic gastric polyps were noted that had been biopsied on previous occasions. The scope was advanced to the pylorus and the duodenum was cannulated to the second and third portions. I did not visualize any sign of mucosal abnormalities such as ulcerations, angiodysplasias, nor inflammation. There was no sign of any blood in the duodenum. Scope was withdrawn back in the stomach. The gastric antrum had several areas of erythema, but no erosions or ulceration. There was no bleeding. There was good peristalsis. Scope was retroflexed visualizing the proximal stomach carefully, which appeared normal, other than the above-mentioned hyperplastic gastric polyps. There was no mass or ulceration. The scope was straightened. There was no blood or coffee-grounds material in the stomach. The scope was withdrawn back in the esophagus. The EG junction at 34 cm appeared normal. Again, from this area to 30 cm, was the segment of Sevilla's mucosa. The esophageal mucosa proximal to this appeared normal. The scope was withdrawn from the patient. She tolerated the procedure well and was returned to the recovery area in stable condition. IMPRESSION: 1. Sevilla's esophagus. 2. Gastric polyps. 3. Hiatal hernia. 4. Minimal gastritis. PLAN: The patient will be restarted back on her omeprazole, but I shall make it b.i.d. given the recent report of dark stool. Her most recent colonoscopy in 2017 did show some nonbleeding colonic angiodysplasias. However, given the report of dark stool and the relatively significant drop in hemoglobin over just several days, without any report of hematochezia, I am more concerned about a possible upper small-bowel source of blood loss from other angiodysplasias. As such, rather than put her through another colonoscopy at this point since she has had some many of those in the past, I am inclined to start her on oral iron and try to obtain a small bowel video capsule study in the relatively near future as an outpatient as long as things remain stable. If her hemoglobin increases and remain stable on just oral iron, we could then electively decide if she needs any further endoscopic intervention once we have the results of the small bowel video capsule study. Clearly if her hemoglobin continues to drop despite oral iron and/or IV iron, we could then have her undergo a colonoscopy, as well as a small bowel enteroscopy if any bleeding areas are seen on the small bowel video capsule study. MD JUDY Patel/MARGARET / [id number]
--- NOTE | 2021-01-22 21:44 | CONS_ITS ---
DATE OF SERVICE: 01/22/2021 REASON FOR CONSULTATION: Anemia and question of melena. HISTORY OF PRESENT ILLNESS: The patient is a 76-year-old female, well known to me with a long-standing history of reflux and intermittent history of anemia. I last saw her in August of 2019, at which time, she underwent a surveillance upper endoscopy in regard to her known Sevilla's esophagus. Biopsies at that time were negative for dysplasia. There was no esophagitis nor any bleeding areas noted. She has had a history of multiple colonoscopies in the past including the most recent one being in 2016, which was done for workup of anemia. The colonoscopy in 2016 revealed some nonbleeding angiodysplasias as well as diverticulosis and internal hemorrhoids. She has also had a negative colonoscopy in 2002, 2003, and 2014 as well. She has also had multiple upper endoscopies including the most recent one in 2019 as mentioned, and she has had normal duodenal biopsies in regard to no findings of celiac disease. In any event, she has remained on daily omeprazole and reports that this has been working well for her. She has not been experiencing any heartburn nor dysphagia. She takes 20 mg daily. She went for some routine blood work on January 15 and was found to have a hemoglobin of 7.4. Her hemoglobin on several occasions prior to that including January 2020, April 2020, and August of 2020 were all stable at approximately 11.5. After the blood work on January 15 showing hemoglobin of 7.4 she developed some dark stools and progressive weakness and came to the ER on January 21 with a hemoglobin of 4.6. She subsequently was admitted and has received 2 units of blood with hemoglobin today of 7.0. She does feel better. She has not noticed any increasing symptoms of heartburn, dysphagia, anorexia, nausea, nor vomiting. Other than the dark stool, she has not noticed any signs of hematochezia. She denies any abdominal pains. She has not been using any aspirin nor NSAIDs. She does not smoke nor use any significant amounts of alcohol. MEDICATIONS: Her medications at home included omeprazole 20 mg daily, amlodipine, atorvastatin, vitamin D, vitamin B12, hydrochlorothiazide, lisinopril, potassium, and raloxifene. Her current medications include amlodipine, atorvastatin, vitamin D, vitamin B12, lisinopril, IV Protonix. PAST MEDICAL HISTORY: Gastroesophageal reflux with associated hiatal hernia and Sevilla's esophagus, colon angiodysplasia. History of fatty liver. Hypertension. Hyperlipidemia. Osteoporosis. PAST SURGICAL HISTORY: Surgeries include appendectomy and complete hysterectomy. There is no reported history of [place], diabetes, stroke, lung disease, nor kidney disease. SOCIAL HISTORY: She does not smoke nor use any alcohol. FAMILY HISTORY: Noncontributory. REVIEW OF SYSTEMS: CONSTITUTIONAL: She has been weaker lately in regard to the anemia. SKIN: No rash. No pruritus. CARDIAC: No chest pain. PULMONARY: No coughing or hemoptysis, but she has been short of breath in regard to the anemia. GASTROINTESTINAL: As above. PHYSICAL EXAMINATION: GENERAL: The patient is a pleasant, pale, alert female. SKIN: Warm and dry. HEENT: Anicteric sclerae. NECK: Supple. ABDOMEN: Soft, nondistended, nontender without mass or organomegaly. EXTREMITIES: Without edema. LABORATORY DATA: As above. PT 11.8 with INR 1.0. Normal electrolytes. BUN 20, creatinine 0.8, normal LFTs, normal B12, and folate level, iron 52, iron saturation 13%. Chest x-ray was unremarkable. IMPRESSION: Given the patient's clinical history of reported dark stools and a new anemia with a significant drop over the preceding several days before admission, I would be most concerned about an upper GI source of blood loss. As such, she will undergo upper endoscopy today for further evaluation. Full consent has been obtained from her for this, including risks of bleeding and perforation. Of note, she is already on omeprazole as an outpatient and therefore this will make ulcer disease less likely. Nonetheless, I do think it would be important to do an upper endoscopy as the initial test. In the meantime, I would continue her IV PPI. If the upper endoscopy is not revealing, we would then need to decide about having undergo a colonoscopy given her known angiodysplasias or consider a small bowel video capsule study first to see if she has any small-bowel source of bleeding given the reported dark stool that may be more consistent with an upper GI source of blood loss as opposed to a colonic angiodysplasia. In the meantime, she will continue to have close monitoring of her blood count. Thank you for this consultation. MD JUDY Patel/MARGARET / [id number] MTDD
[2021-01-23] VITALS (12 sets, daily range): BP systolic 102–137; BP diastolic 53–70; PULSE 64–74; RESP 16–18; TEMP 36.2–36.9; O2SAT 95–98
[2021-01-23 06:13] LABS: Mean Corpuscular HGB Conc 31.8 g/dl (31.0-35.0); Mean Corpuscular Hemoglobin 29.3 pg (27.0-33.0); Mean Corpuscular Volume 92.1 fL (80.0-98.0); Mean Platelet Volume 10.1 fL (9.4-12.3); Platelet Count 182 X10*3/uL (160-400); Red Blood Count 2.15 X10*6/uL (4.20-5.50); Red Cell Distribution Width 14.6 % (11.0-16.0); White Blood Count 9.3 X10*3/uL (4.8-10.8)
[2021-01-23 06:21] LABS: Anion Gap 11 (12-20); Blood Urea Nitrogen 15 mg/dL (9-16); Calcium 7.7 mg/dL (8.4-10.2); Carbon Dioxide 23 mmol/L (22-29); Chloride 110 mmol/L (96-108); Creatinine Clr Calc Pharmacy 69.7; Estimated Glomerular Filt Rate > 60; Glucose Fasting 88 mg/dL (60-99); Hematocrit 19.8 % (37.0-47.0); Hemoglobin 6.3 g/dl (12.0-16.0); Potassium 3.9 mmol/L (3.3-5.1); Sodium 140 mmol/L (135-145)
--- NOTE | 2021-01-23 06:26 | PM.EVENT ---
Event Note Date of Service: 01/23/21 Event Note: Hgb <7, 1 unit of prbc ordered no acute bleed
[2021-01-23] MEDS: Omeprazole 20 MG CAPSULE.DR PO ×2 (06:30→16:17)
--- NOTE | 2021-01-23 06:44 | MHC.PIE ---
p; h&h 6.3 19.8 i; dr blackmon notified; new order rbc 1u now e; will cont to monitor
[2021-01-23] MEDS: Atorvastatin Calcium 10 MG TABLET PO (08:48)
[2021-01-23] MEDS: Cyanocobalamin (Vitamin B-12) 1,000 MCG TABLET 1000 MCG PO (08:48)
[2021-01-23] MEDS: 0.9 % Sodium Chloride Flush 3 ML SYRINGE IVFLUSH ×3 (08:48→19:38)
[2021-01-23] MEDS: Ferrous Sulfate 324 MG TABLET.DR PO ×2 (08:48→16:17)
[2021-01-23] MEDS: Cholecalciferol (Vitamin D3) 25 MCG TABLET PO (08:48)
--- NOTE | 2021-01-23 09:01 | MHC.CM.PN ---
PT REPORTS SHE LIVES ALONE BUT HER S/O WILL STAY WITH HER IF SHE NEEDS HELP AT DC. 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
--- NOTE | 2021-01-23 10:48 | P.PNIM_ITS ---
Subjective Subjective Date of Service: 01/23/21 Interval History: cc: sob interval history: wome dizzyness and sob on exertion, overall better Cardiovascular Cardiovascular: Reports no additional cardiovascular complaints Respiratory Respiratory: Reports no additional respiratory complaints Physical Exam Vital Signs: Vital Signs: Last Vital Signs Temp 98.3 F 01/23/21 10:30 Pulse 67 01/23/21 10:30 Resp 17 01/23/21 10:30 BP 119/55 L 01/23/21 10:30 Pulse Ox 97 01/23/21 07:15 Body Mass Index 26.7 General: AO X 3, no acute distress Resp:? CTA bilateral, no accessory muscles used CVS: S1,S2,RRR, murmur GI: soft, non tender, non distended Neuro:? motor grossly intact, alert Psych: appropriate affect, appropriate insight? Objective Data Active Medications Atorvastatin Calcium (Atorvastatin Calcium 10 Mg Tablet) 10 mg PO DAILY [facility] Last Admin: 01/23/21 08:48 Dose: 10 mg Documented by: FERNANDO Cyanocobalamin (Cyanocobalamin (Vitamin B-12) 1,000 Mcg Tablet) 1,000 mcg PO DAILY [facility] Last Admin: 01/23/21 08:48 Dose: 1,000 mcg Documented by: FERNANDO Ferrous Sulfate (Ferrous Sulfate 324 Mg Tablet.) 324 mg PO BIDWM [facility] Last Admin: 01/23/21 08:48 Dose: 324 mg Documented by: FERNANDO Omeprazole (Omeprazole 20 Mg Capsule.) 20 mg PO BID@0630,1630 [facility] Last Admin: 01/23/21 06:30 Dose: 20 mg Documented by: PARVEEN Sodium Chloride (0.9 % Sodium Chloride Flush 3 Ml Syringe) 3 ml IVFLUSH QSHIFT [facility] Last Admin: 01/23/21 08:48 Dose: 3 ml Documented by: FERNANDO Vitamin D (Cholecalciferol (Vitamin D3) 25 Mcg Tablet) 25 mcg PO DAILY [facility] Last Admin: 01/23/21 08:48 Dose: 25 mcg Documented by: FERNANDO Labs CBC & Chem 7: 01/23/21 05:29 01/23/21 05:29 Labs: Laboratory Results - last 24 hr 01/21/21 01/22/21 01/23/21 13:47 16:37 05:29 MCV 92.1 MCH 29.3 MCHC 31.8 RDW 14.6 Plt Count 182 MPV 10.1 Absolute Nucleated RBC 0.000 Nucleated RBC % (auto) 0.0 Anion Gap Estim Creat Clear Calc Estimated GFR Fasting Glucose Calcium Troponin I High Sens 10.5 Blood Type A Positive Antibody Screen NEGATIVE Crossmatch See Detail 01/23/21 05:29 MCV MCH MCHC RDW Plt Count MPV Absolute Nucleated RBC Nucleated RBC % (auto) Anion Gap 11 L Estim Creat Clear Calc 69.7 Estimated GFR > 60 Fasting Glucose 88 Calcium 7.7 L Troponin I High Sens Blood Type Antibody Screen Crossmatch Assessment and Plan (1) Sevilla's esophagus: Status: Acute (2) GI bleed: Status: Acute Assessment and Plan: 76F presented with sob, found to have significant anemia acute blood loss anemia from GI bleed changed to po ppi Monitor CBC Transfused 2 units PRBC on 01/21, hgb improved appropriately from 4.6 to 7 will give another 2 units today for hgb 6.3 continue oral iron EGD 01/22 showed - hiatal hernia, barretts, gastric polyps, mild erythema of antrum - overall, no clear source of bleed plan for elective small bowel video capsule +/- colonoscopy if hgb stable if continues to drop - inpatient colonoscopy +-/ small bowel enteroscopy History of Sevilla's esophagus Continue PPI Hypertension Lisinopril, amlodipine - held for relative hypotension Hyperlipidemia Lipitor DVT prophylaxis-mechanical due to GI bleed DNR DNI Quality Stroke Does the patient have a stroke diagnosis?: No VTE Prior VTE?: No VTE Risk Level:: Medical - moderate - high VTE Device Contraindication: N/A - Device Ordered VTE Drug Contraindication: Treatment Not Indicated
[2021-01-23 20:11] LABS: Hematocrit 26.3 % (37.0-47.0); Hemoglobin 8.9 g/dl (12.0-16.0); Mean Corpuscular HGB Conc 33.8 g/dl (31.0-35.0); Mean Corpuscular Hemoglobin 31.1 pg (27.0-33.0); Mean Platelet Volume 9.7 fL (9.4-12.3); Platelet Count 185 X10*3/uL (160-400); Red Blood Count 2.86 X10*6/uL (4.20-5.50); Red Cell Distribution Width 14.6 % (11.0-16.0); White Blood Count 9.9 X10*3/uL (4.8-10.8)
--- NOTE | 2021-01-23 21:05 | PM.EVENT ---
Event Note Date of Service: 01/23/21 Event Note: GI- Called by RN at 7:30 this evening that patient had reported a large black BM from earlier in the evening. She had no other symptoms of N/V/Abdominal pain. VSS. Her Hgb went from 6.3 this AM to 8.9 at 8PM this evening. She received 2 u PRBC's earlier today. She did just start iron yesterday. She may be having some ongoing bleeding from the upper small bowel given the nonrevealing EGD yesterday. A colonic source may be possible given known AVM's, but I would expect more maroonish colored stool if a colon source was causing bleeding to such a significant degree. At this point I will switch her back to clear liquids and hold the Iron. I will see about the possibility of obtaining an inpatient SB video capsule study. If that is negative I would then proceed with a colonoscopy. Will recheck labs in AM. If she has signs of active bleeding we could also proceed with a nuclear med bleeding scan or CTA of the abdomen. Thanks.
[2021-01-23 23:37] LABS: MANUAL DIFF FLAG NO
[2021-01-23 23:39] LABS: Basophils Percent Auto 0.2 % (0-2); Eosinophils Absolute Auto 0.3 X10*3/uL (0.0-0.4); Eosinophils Percent Auto 2.7 % (0-4); Hematocrit 25.4 % (37.0-47.0); Hemoglobin 8.4 g/dl (12.0-16.0); Imm Gran Abs Auto 0.07 X10*3/uL (0.00-0.03); Imm Gran Pct Auto 0.8 % (0.0-0.4); Lymphocytes Absolute Auto 2.2 X10*3/uL (1.2-4.9); Lymphocytes Percent Auto 23.5 % (20-40); Mean Corpuscular HGB Conc 33.1 g/dl (31.0-35.0); Mean Corpuscular Hemoglobin 30.8 pg (27.0-33.0); Mean Platelet Volume 9.7 fL (9.4-12.3); Monocytes Absolute Auto 0.8 X10*3/uL (0.1-1.2); Monocytes Percent Auto 8.7 % (2-11); Neutrophils Absolute Auto 5.93 x10*3/uL (2.0-8.3); Neutrophils Percent Auto 64.1 % (45-73); Platelet Count 171 X10*3/uL (160-400); Red Blood Count 2.73 X10*6/uL (4.20-5.50); Red Cell Distribution Width 14.6 % (11.0-16.0); White Blood Count 9.2 X10*3/uL (4.8-10.8)
[2021-01-24] VITALS (7 sets, daily range): BP systolic 117–149; BP diastolic 55–68; PULSE 57–69; RESP 14–18; TEMP 36.2–37.1; O2SAT 95–97
[2021-01-24 00:11] LABS: Anion Gap 9 (12-20); Blood Urea Nitrogen 18 mg/dL (9-16); Calcium 7.5 mg/dL (8.4-10.2); Carbon Dioxide 22 mmol/L (22-29); Chloride 112 mmol/L (96-108); Creatinine Clr Calc Pharmacy 67.7; Estimated Glomerular Filt Rate > 60; Glucose Fasting 94 mg/dL (60-99); Potassium 3.8 mmol/L (3.3-5.1); Sodium 139 mmol/L (135-145)
[2021-01-24] MEDS: Omeprazole 20 MG CAPSULE.DR PO ×2 (05:50→16:46)
[2021-01-24 06:07] LABS: Hematocrit 27.2 % (37.0-47.0); Hemoglobin 8.9 g/dl (12.0-16.0); Mean Corpuscular HGB Conc 32.7 g/dl (31.0-35.0); Mean Corpuscular Hemoglobin 30.6 pg (27.0-33.0); Mean Corpuscular Volume 93.5 fL (80.0-98.0); Mean Platelet Volume 10.1 fL (9.4-12.3); Platelet Count 192 X10*3/uL (160-400); Red Blood Count 2.91 X10*6/uL (4.20-5.50); Red Cell Distribution Width 14.6 % (11.0-16.0)
[2021-01-24 06:17] LABS: Anion Gap 12 (12-20); Blood Urea Nitrogen 15 mg/dL (9-16); Calcium 7.8 mg/dL (8.4-10.2); Carbon Dioxide 22 mmol/L (22-29); Chloride 111 mmol/L (96-108); Estimated Glomerular Filt Rate > 60; Glucose Fasting 88 mg/dL (60-99); Potassium 3.9 mmol/L (3.3-5.1); Sodium 141 mmol/L (135-145)
--- NOTE | 2021-01-24 06:56 | HO.POSTANES ---
Post Anesthesia Evaluation Post Anesthesia Evaluation Vital Signs: Vital Signs Temp Pulse Resp BP Pulse Ox 01/24/21 04:00 98.8 F 69 18 131/63 95 01/24/21 00:00 97.9 F 66 18 117/55 L 97 01/23/21 20:00 98.2 F 74 18 122/60 95 Anesthesia: Monitored Mental Status: Awake Pain Control: Satisfactory Nausea/Vomiting: None Hydration: Adequate Anesthesia-Related Issues: No Anes. Related Issues
[2021-01-24] MEDS: Atorvastatin Calcium 10 MG TABLET PO (08:49)
[2021-01-24] MEDS: Cyanocobalamin (Vitamin B-12) 1,000 MCG TABLET 1000 MCG PO (08:49)
[2021-01-24] MEDS: Cholecalciferol (Vitamin D3) 25 MCG TABLET PO (08:49)
[2021-01-24] MEDS: 0.9 % Sodium Chloride Flush 3 ML SYRINGE IVFLUSH ×3 (08:50→19:47)
--- NOTE | 2021-01-24 08:56 | PM.EVENT ---
Event Note Date of Service: 01/24/21 Event Note: Patient on our list by mistake. No cardiology consult requested.
--- NOTE | 2021-01-24 12:57 | MHC.CM.PN ---
EMR REVIEWED, PER MULTIDISCIPLINARY ROUNDS UPPER ENDOSCOPY BENIGN, PT WILL HAVE SB VIDEO CAP STUDY WHILE INPT AND POSSIBLE COLONOSCOPY IF sb CAP STUDY NEGATIVE. CM WILL CONT TO FOLLOW D/C NEEDS.
--- NOTE | 2021-01-24 13:02 | P.PNIM_ITS ---
Subjective Subjective Date of Service: 01/24/21 Interval History: Being followed for acute blood loss anemia, this morning patient had a black colored stool, no fresh blood noticed patient denies any nausea vomiting abdominal pain, no other acute issues overnight. Review of Systems General no headache, no dizziness no fever chills. CVS no chest pain, no palpitation. Respiratory no cough, no sob. Gastrointestinal no nausea no vomiting, no abdominal pain Review of Systems: Yes all other systems are reviewed and are negative Physical Exam Vital Signs: Vital Signs: Last Vital Signs Temp 97.9 F 01/24/21 11:39 Pulse 59 01/24/21 11:39 Resp 16 01/24/21 11:39 BP 136/56 L 01/24/21 11:39 Pulse Ox 97 01/24/21 11:39 Body Mass Index 26.7 General: AXO X 3, no acute distress Neck no JVD Resp:? CTA bilateral, no accessory muscles used CVS: S1,S2,RRR, murmur GI: soft, non tender, non distended, bowel sounds audible Neuro:? motor grossly intact, alert Skin no rash Psych: appropriate affect, appropriate insight? Objective Data Active Medications Atorvastatin Calcium (Atorvastatin Calcium 10 Mg Tablet) 10 mg PO DAILY [facility] Last Admin: 01/24/21 08:49 Dose: 10 mg Documented by: FERNANDO Cyanocobalamin (Cyanocobalamin (Vitamin B-12) 1,000 Mcg Tablet) 1,000 mcg PO DAILY [facility] Last Admin: 01/24/21 08:49 Dose: 1,000 mcg Documented by: FERNANDO Omeprazole (Omeprazole 20 Mg Capsule.) 20 mg PO BID@0630,1630 [facility] Last Admin: 01/24/21 05:50 Dose: 20 mg Documented by: RERE Polyethylene Glycol/Electrolytes (Peg 3350/Na Sulf,Bicarb,Cl/Kcl 4,000 Ml Soln.Recon) 4,000 ml PO ONCE ONE Stop: 01/24/21 20:16 Sodium Chloride (0.9 % Sodium Chloride Flush 3 Ml Syringe) 3 ml IVFLUSH QSHIFT [facility] Last Admin: 01/24/21 08:50 Dose: 3 ml Documented by: FERNANDO Vitamin D (Cholecalciferol (Vitamin D3) 25 Mcg Tablet) 25 mcg PO DAILY [facility] Last Admin: 01/24/21 08:49 Dose: 25 mcg Documented by: FERNANDO Labs CBC & Chem 7: 01/24/21 05:29 01/24/21 05:29 Labs: Laboratory Results - last 24 hr 01/23/21 01/23/21 01/23/21 20:04 23:33 23:33 MCV 92.0 93.0 MCH 31.1 30.8 MCHC 33.8 33.1 RDW 14.6 14.6 Plt Count 185 171 MPV 9.7 9.7 Immature Gran % (Auto) 0.8 H Neut % (Auto) 64.1 Lymph % (Auto) 23.5 [place] % (Auto) 8.7 Eos % (Auto) 2.7 Baso % (Auto) 0.2 Lymph # (Auto) 2.2 [place] # (Auto) 0.8 Eos # (Auto) 0.3 Baso # (Auto) 0.0 Abs Immat Gran (auto) 0.07 H Absolute Neuts (auto) 5.93 Absolute Nucleated RBC 0.000 0.000 Nucleated RBC % (auto) 0.0 0.0 Anion Gap 9 L Estim Creat Clear Calc 67.7 Estimated GFR > 60 Fasting Glucose 94 Calcium 7.5 L 01/24/21 01/24/21 05:29 05:29 MCV 93.5 MCH 30.6 MCHC 32.7 RDW 14.6 Plt Count 192 MPV 10.1 Immature Gran % (Auto) Neut % (Auto) Lymph % (Auto) [place] % (Auto) Eos % (Auto) Baso % (Auto) Lymph # (Auto) [place] # (Auto) Eos # (Auto) Baso # (Auto) Abs Immat Gran (auto) Absolute Neuts (auto) Absolute Nucleated RBC 0.000 Nucleated RBC % (auto) 0.0 Anion Gap 12 Estim Creat Clear Calc 66.0 Estimated GFR > 60 Fasting Glucose 88 Calcium 7.8 L Assessment and Plan (1) GI bleed: Status: Acute Assessment and Plan: 76F presented with sob, found to have significant anemia acute blood loss anemia from GI bleed Noted to have black color stool this morning, no fresh blood, no melena no hematemesis changed to po ppi Status post 4 units of packed RBC hematocrit improved and stable at 27.2 EGD 01/22 showed - hiatal hernia, barretts, gastric polyps, mild erythema of antrum - overall, no clear source of bleed Iron held due to question for black stools related to iron plan is for elective small bowel video capsule +/- colonoscopy if hgb stable. Hematocrit stable this morning will repeat hematocrit this evening if remains stable will plan for outpatient workup. if continues to drop? - inpatient colonoscopy +-/ small bowel enteroscopy History of Sevilla's esophagus Continue PPI Hypertension Blood pressure trending up will resume amlodipine, continue to hold lisinopril and follow BP closely Hyperlipidemia Lipitor DVT prophylaxis-mechanical due to GI bleed DNR DNI Quality Stroke Does the patient have a stroke diagnosis?: No VTE Prior VTE?: No VTE Risk Level:: Medical - moderate - high VTE Device Contraindication: N/A - Device Ordered VTE Drug Contraindication: Treatment Not Indicated
[2021-01-24] MEDS: amLODIPine Besylate 2.5 MG TABLET PO (13:45)
[2021-01-24 15:22] LABS: Hematocrit 26.9 % (37.0-47.0); Hemoglobin 8.8 g/dl (12.0-16.0)
[2021-01-24] MEDS: PEG 3350/Na Sulf,Bicarb,Cl/KCL 4,000 ML SOLN.RECON 4000 ML PO (19:42)
--- NOTE | 2021-01-24 22:35 | PM.GIPN ---
Subjective Subjective Date of Service: 01/24/21 Interval History: Patient seen at 7:30PM this evening. Feeling better. Able to walk in halls without SOB. She had a black stool last PM and this AM-none since. Denies abdominal pain, N/V, BRBPR. Critical Care Time (minutes): 0 Physical Exam Vital Signs: Vital Signs: Last Vital Signs Temp 97.5 F 01/24/21 19:11 Pulse 66 01/24/21 19:11 Resp 18 01/24/21 19:11 BP 128/60 01/24/21 19:11 Pulse Ox 96 01/24/21 19:11 Body Mass Index 26.7 Const: General: cooperative, healthy appearing, comfortable, no acute distress, well developed and alert Eyes: Other: Anicteric sclerae GI: Other: Abd-soft, NT, +BS, nondistended Objective Data Labs CBC & Chem 7: 01/24/21 15:11 01/24/21 05:29 Labs: Laboratory Results - last 24 hr 01/23/21 01/23/21 01/24/21 23:33 23:33 05:29 WBC 9.2 9.0 RBC 2.73 L 2.91 L Hgb 8.4 L 8.9 L Hct 25.4 L 27.2 L MCV 93.0 93.5 MCH 30.8 30.6 MCHC 33.1 32.7 RDW 14.6 14.6 Plt Count 171 192 MPV 9.7 10.1 Immature Gran % (Auto) 0.8 H Neut % (Auto) 64.1 Lymph % (Auto) 23.5 [place] % (Auto) 8.7 Eos % (Auto) 2.7 Baso % (Auto) 0.2 Lymph # (Auto) 2.2 [place] # (Auto) 0.8 Eos # (Auto) 0.3 Baso # (Auto) 0.0 Abs Immat Gran (auto) 0.07 H Absolute Neuts (auto) 5.93 Absolute Nucleated RBC 0.000 0.000 Nucleated RBC % (auto) 0.0 0.0 Sodium 139 Potassium 3.8 Chloride 112 H Carbon Dioxide 22 Anion Gap 9 L BUN 18 H Creatinine 0.72 Estim Creat Clear Calc 67.7 Estimated GFR > 60 Fasting Glucose 94 Calcium 7.5 L 01/24/21 01/24/21 05:29 15:11 WBC RBC Hgb 8.8 L Hct 26.9 L MCV MCH MCHC RDW Plt Count MPV Immature Gran % (Auto) Neut % (Auto) Lymph % (Auto) [place] % (Auto) Eos % (Auto) Baso % (Auto) Lymph # (Auto) [place] # (Auto) Eos # (Auto) Baso # (Auto) Abs Immat Gran (auto) Absolute Neuts (auto) Absolute Nucleated RBC Nucleated RBC % (auto) Sodium 141 Potassium 3.9 Chloride 111 H Carbon Dioxide 22 Anion Gap 12 BUN 15 Creatinine 0.74 Estim Creat Clear Calc 66.0 Estimated GFR > 60 Fasting Glucose 88 Calcium 7.8 L Procedures Date of Service Date of Service: 01/24/21 Progress Note: A&P Assessment and plan (1) GI bleed: Status: Acute Assessment and Plan: Imp: She presently appears quite stable. Her Hgb has been stable after transfusions(#3 and #4) from early yesterday morning despite two black stools. It appears that the bleeding is from an UGI source, despite the nonrevealing EGD on 01/22, given the reported black stools. Assessment and Plan: Rec: She is presently scheduled for the small bowel video capsule study tomorrow, 01/25. If this is negative she may then very well need a colonoscopy for further evaluation. It the capsule study reveals a source of bleeding we would then proceed accordingly. Follow Hgb in the meantime. D/W patient in detail and she is comfortable with this plan. Thanks Fall Risk Details Current Medications: Current Medications Amlodipine Besylate (Amlodipine Besylate 2.5 Mg Tablet) 2.5 mg PO DAILY [facility]; Protocol Last Admin: 01/24/21 13:45 Dose: 2.5 mg Documented by: Atorvastatin Calcium (Atorvastatin Calcium 10 Mg Tablet) 10 mg PO DAILY [facility] Last Admin: 01/24/21 08:49 Dose: 10 mg Documented by: Cyanocobalamin (Cyanocobalamin (Vitamin B-12) 1,000 Mcg Tablet) 1,000 mcg PO DAILY [facility] Last Admin: 01/24/21 08:49 Dose: 1,000 mcg Documented by: Omeprazole (Omeprazole 20 Mg Amauri.) 20 mg PO BID@0630,2370 [facility] Last Admin: 01/24/21 16:46 Dose: 20 mg Documented by: Sodium Chloride (0.9 % Sodium Chloride Flush 3 Ml Syringe) 3 ml IVFLUSH QSHIFT [facility] Last Admin: 01/24/21 19:47 Dose: 3 ml Documented by: Vitamin D (Cholecalciferol (Vitamin D3) 25 Mcg Tablet) 25 mcg PO DAILY [facility] Last Admin: 01/24/21 08:49 Dose: 25 mcg Documented by: Time Spent With Patient Time: Total time spent is greater than 50% in coordination of care (as documented) at patient's floor/unit and/or counseling patient: Time with patient: 15 - 24 minutes Quality Stroke Does the patient have a stroke diagnosis?: No VTE Prior VTE?: No VTE Risk Level:: Medical - moderate - high VTE Device Contraindication: N/A - Device Ordered VTE Drug Contraindication: Treatment Not Indicated
[2021-01-25] VITALS (8 sets, daily range): BP systolic 127–138; BP diastolic 56–67; PULSE 57–73; RESP 16–18; TEMP 36.2–36.9; O2SAT 95–97
[2021-01-25] MEDS: Omeprazole 20 MG CAPSULE.DR PO ×2 (05:35→15:51)
[2021-01-25] MEDS: Cholecalciferol (Vitamin D3) 25 MCG TABLET PO (09:48)
[2021-01-25] MEDS: Atorvastatin Calcium 10 MG TABLET PO (09:48)
[2021-01-25] MEDS: amLODIPine Besylate 2.5 MG TABLET PO (09:48)
[2021-01-25] MEDS: Cyanocobalamin (Vitamin B-12) 1,000 MCG TABLET 1000 MCG PO (09:49)
[2021-01-25] MEDS: 0.9 % Sodium Chloride Flush 3 ML SYRINGE IVFLUSH ×2 (09:49→15:53)
--- NOTE | 2021-01-25 17:41 | P.PNGI_ITS ---
Subjective Subjective Date of Service: 01/25/21 Interval History: Feeling well. No more black stool by the end of the prep and her Hgb has been stable. Tolerated the capsule study. Hungry. Denies pain. Critical Care Time (minutes): 0 Physical Exam Vital Signs: Vital Signs: Last Vital Signs Temp 97.2 F 01/25/21 15:48 Pulse 66 01/25/21 15:48 Resp 16 01/25/21 15:48 BP 133/56 L 01/25/21 15:48 Pulse Ox 96 01/25/21 15:48 Body Mass Index 26.7 Const: General: cooperative, healthy appearing, comfortable, no acute distress, well developed and alert GI: Other: Abd-soft, NT, +BS Objective Data Labs CBC & Chem 7: 01/24/21 15:11 01/24/21 05:29 Imaging Small Bowel Video Capsule: My impression: D/W Dr. Euceda--some nonspecific changes in proximal duodenum with minimal inflammation-no bleeding. The rest of the UGI tract and small bowel were fine, as was the cecum--no blood nor melena noted Procedures Date of Service Date of Service: 01/25/21 Progress Note: A&P Assessment and plan (1) GI bleed: Status: Acute Assessment and Plan: Imp: GI Bleed-presently stable. Hgb has been stable after transfusions. At this point I still suspect that the source was somewhere in the UGI tract given the report of melena and the significant drop in Hgb without visualizing [place] blood or maroon stool as one would expect from a colonic source. Assessment and Plan: Rec: Advance diet, resume Iron, continue oral PPI, D/C on 01/26 if stable. Will follow up as an outpatient and decide about a colonoscopy at some point. She should avoid NSAIDs and ASA usp. If she has recurrent melena will repeat the EGD and consider small bowel enteroscopy, as well. D/W patient in detail. She is comfortable with this plan. Thanks. Fall Risk Details Current Medications: Current Medications Amlodipine Besylate (Amlodipine Besylate 2.5 Mg Tablet) 2.5 mg PO DAILY [facility]; Protocol Last Admin: 01/25/21 09:48 Dose: 2.5 mg Documented by: Atorvastatin Calcium (Atorvastatin Calcium 10 Mg Tablet) 10 mg PO DAILY [facility] Last Admin: 01/25/21 09:48 Dose: 10 mg Documented by: Cyanocobalamin (Cyanocobalamin (Vitamin B-12) 1,000 Mcg Tablet) 1,000 mcg PO DAILY [facility] Last Admin: 01/25/21 09:49 Dose: 1,000 mcg Documented by: Omeprazole (Omeprazole 20 Mg Capsule.) 20 mg PO BID@0630,1630 [facility] Last Admin: 01/25/21 15:51 Dose: 20 mg Documented by: Sodium Chloride (0.9 % Sodium Chloride Flush 3 Ml Syringe) 3 ml IVFLUSH QSHIFT [facility] Last Admin: 01/25/21 15:53 Dose: 3 ml Documented by: Vitamin D (Cholecalciferol (Vitamin D3) 25 Mcg Tablet) 25 mcg PO DAILY [facility] Last Admin: 01/25/21 09:48 Dose: 25 mcg Documented by: Time Spent With Patient Time: Total time spent is greater than 50% in coordination of care (as documented) at patient's floor/unit and/or counseling patient: Time with patient: 15 - 24 minutes Quality Stroke Does the patient have a stroke diagnosis?: No VTE Prior VTE?: No VTE Risk Level:: Medical - moderate - high VTE Device Contraindication: N/A - Device Ordered VTE Drug Contraindication: Treatment Not Indicated
--- NOTE | 2021-01-25 18:40 | P.PNIM_ITS ---
Subjective Subjective Date of Service: 01/25/21 Interval History: Being followed for anemia and GI bleeding, underwent prep for video capsule study today, had no further black stools this a.m. hematocrit remains stable, patient denies nausea , vomiting, abdominal pain. Review of Systems General no headache, no dizziness no fever chills.? CVS no chest pain, no palpitation.? Respiratory no cough, no sob.? Gastrointestinal no nausea no vomiting, no abdominal pain Review of Systems: Yes all other systems are reviewed and are negative Physical Exam Vital Signs: Vital Signs: Last Vital Signs Temp 97.2 F 01/25/21 15:48 Pulse 66 01/25/21 15:48 Resp 16 01/25/21 15:48 BP 133/56 L 01/25/21 15:48 Pulse Ox 96 01/25/21 15:48 Body Mass Index 26.7 General: AXO X 3, no acute distress Neck no JVD Resp:? CTA bilateral, no accessory muscles used CVS: S1,S2,RRR, murmur GI: soft, non tender, non distended, bowel sounds audible Neuro:? motor grossly intact, alert Skin no rash Psych: appropriate affect, appropriate insight? Objective Data Active Medications Amlodipine Besylate (Amlodipine Besylate 2.5 Mg Tablet) 2.5 mg PO DAILY [facility]; Protocol Last Admin: 01/25/21 09:48 Dose: 2.5 mg Documented by: CONCEPCION Atorvastatin Calcium (Atorvastatin Calcium 10 Mg Tablet) 10 mg PO DAILY [facility] Last Admin: 01/25/21 09:48 Dose: 10 mg Documented by: CONCEPCION Cyanocobalamin (Cyanocobalamin (Vitamin B-12) 1,000 Mcg Tablet) 1,000 mcg PO DAILY [facility] Last Admin: 01/25/21 09:49 Dose: 1,000 mcg Documented by: CONCEPCION Omeprazole (Omeprazole 20 Mg Capsule.) 20 mg PO BID@0630,1630 [facility] Last Admin: 01/25/21 15:51 Dose: 20 mg Documented by: CONCEPCION Sodium Chloride (0.9 % Sodium Chloride Flush 3 Ml Syringe) 3 ml IVFLUSH QSHIFT [facility] Last Admin: 01/25/21 15:53 Dose: 3 ml Documented by: CONCEPCION Vitamin D (Cholecalciferol (Vitamin D3) 25 Mcg Tablet) 25 mcg PO DAILY [facility] Last Admin: 01/25/21 09:48 Dose: 25 mcg Documented by: CONCEPCION Labs CBC & Chem 7: 01/24/21 15:11 01/24/21 05:29 Assessment and Plan (1) GI bleed: Status: Acute (2) Vitamin B12 deficiency: Status: Acute (3) Anemia: Status: Acute Assessment and Plan: 76F presented with sob, found to have significant anemia acute blood loss anemia from GI bleed No further episodes of black stools this morning, no bright red blood per rectum no hematemesis Status post 4 units of packed RBC hematocrit improved and stable at 27.2 EGD 01/22 showed - hiatal hernia, barretts, gastric polyps, mild erythema of antrum - overall, no clear source of bleed Underwent small bowel video capsule study today Postprocedure feeling hungry will resume diet Repeat hematocrit at a.m. if remains stable will discharge home Patient followed closely by Dr. Herrera he feels source likely upper GI tract, he recommend to resume iron supplement and to continue PPI Outpatient follow-up with Gastroenterology to consider colonoscopy, recommend to abstain from NSAIDs and aspirin long-term If patient noted to have recurrent melena plan is for repeat EGD and consider small-bowel enteroscopy History of Sevilla's esophagus Continue PPI Hypertension Blood pressure is stable continue amlodipine, continue to hold lisinopril and follow BP closely Hyperlipidemia Lipitor DVT prophylaxis-mechanical due to GI bleed DNR DNI Quality Stroke Does the patient have a stroke diagnosis?: No VTE Prior VTE?: No VTE Risk Level:: Medical - moderate - high VTE Device Contraindication: N/A - Device Ordered VTE Drug Contraindication: Treatment Not Indicated
[2021-01-26] MEDS: 0.9 % Sodium Chloride Flush 3 ML SYRINGE IVFLUSH ×2 (01:39→09:56)
[2021-01-26 03:20] VITALS: BP 121/54; PULSE 61; RESP 16; TEMP 36.2; O2SAT 97
[2021-01-26 05:35] LABS: MANUAL DIFF FLAG NO
[2021-01-26 05:38] LABS: Basophils Percent Auto 0.2 % (0-2); Eosinophils Absolute Auto 0.3 X10*3/uL (0.0-0.4); Eosinophils Percent Auto 3.7 % (0-4); Hematocrit 27.2 % (37.0-47.0); Hemoglobin 8.8 g/dl (12.0-16.0); Imm Gran Abs Auto 0.04 X10*3/uL (0.00-0.03); Imm Gran Pct Auto 0.5 % (0.0-0.4); Lymphocytes Absolute Auto 1.6 X10*3/uL (1.2-4.9); Lymphocytes Percent Auto 20.1 % (20-40); Mean Corpuscular HGB Conc 32.4 g/dl (31.0-35.0); Mean Corpuscular Volume 92.8 fL (80.0-98.0); Mean Platelet Volume 9.8 fL (9.4-12.3); Monocytes Absolute Auto 0.7 X10*3/uL (0.1-1.2); Monocytes Percent Auto 9.1 % (2-11); Neutrophils Absolute Auto 5.4 x10*3/uL (2.0-8.3); Neutrophils Percent Auto 66.4 % (45-73); Platelet Count 172 X10*3/uL (160-400); Red Blood Count 2.93 X10*6/uL (4.20-5.50); Red Cell Distribution Width 14.6 % (11.0-16.0); White Blood Count 8.1 X10*3/uL (4.8-10.8)
[2021-01-26] MEDS: Omeprazole 20 MG CAPSULE.DR PO (06:00)
[2021-01-26 07:55] VITALS: BP 134/64; PULSE 58; RESP 18; TEMP 37.1; O2SAT 96
[2021-01-26] MEDS: Cyanocobalamin (Vitamin B-12) 1,000 MCG TABLET 1000 MCG PO (09:55)
[2021-01-26] MEDS: Ferrous Sulfate 324 MG TABLET.DR PO (09:55)
[2021-01-26] MEDS: amLODIPine Besylate 2.5 MG TABLET PO (09:55)
[2021-01-26] MEDS: Atorvastatin Calcium 10 MG TABLET PO (09:55)
[2021-01-26] MEDS: Cholecalciferol (Vitamin D3) 25 MCG TABLET PO (09:55)
--- NOTE | 2021-01-26 11:20 | PM.DS ---
DS: Providers Provider Date of Service: 01/26/21 Date of admission: 01/21/21 15:01 Primary care physician: Colt Teran MD Consults: 01/21/21 14:38 Consult to Gastroenterology Routine Consulting Provider: Emiliano Herrera Reason for consultation: melena, severe anemia, history of barretts 01/23/21 21:16 Consult to Gastroenterology Routine Consulting Provider: [facility] Reason for consultation: GI bleeding, ? of inpatient small bowel capsule study? Has provider been notified: No DS: Diagnosis Discharge Diagnosis (1) GI bleed: Status: Acute (2) Vitamin B12 deficiency: Status: Acute (3) Anemia: Status: Acute DS: Summary Hospital Course Hospital Course: Chief Complaint: sob 76-year-old female presented with shortness of breath on exertion.? Patient is usually in good health, walks 1.5 miles daily.? She noticed that about 5 days prior to presentation her locking and urine started to decrease.? She walked less and less, she had to stop to catch her breath.? On day of admission patient noticed just on any slight exertion she would get short of breath and was also feeling palpitations.? She denies any chest pain, nausea, vomiting.? She states she may have darker stools than usual but she is unsure about this. in ED found to have hgb of 4.6, labs consistnet with iron defeciency, guiac positive. 76F presented with sob, found to have significant anemia patient admitted to medical floor with a diagnosis of acute blood loss anemia from GI bleed, she received 4 units of packed RBC hematocrit improved and remains stable, Patient underwent EGD 01/22 that showed hiatal hernia, barretts, gastric polyps, mild erythema of antrum - overall, no clear source of bleed was found, she underwent small bowel video capsule study 01/25/21, report pending Patient was followed closely by Dr. Herrera he feels source of bleeding likely upper GI tract, since patient with no fresh blood, therefore less likely lower GI bleed, patient now hemodynamically stable, tolerating diet, no further episodes of black stools, will discharge her on iron supplements, Prilosec twice daily, will recommend to abstain from NSAID and aspirin long-term, recommended to return to [facility] with any recurrent episode of GI bleed, lightheadedness, dizziness, or weakness, if patient noted to have recurrent melena plan is for repeat upper endoscopy, and consider small-bowel enteroscopy. In regard to hypertension patient was noted to have soft blood pressure therefore will continue on amlodipine and will discontinue lisinopril hydrochlorothiazide and potassium supplement if noted to have elevated beta blood pressure than dose of amlodipine can be increased to 5 mg daily. Recommend to continue Lipitor for hyperlipidemia Time Spent with Patient Time attestation: Total time spent providing and/or coordinating discharge services: Discharge coordination time: Greater than 30 minutes Quality: Stroke Does the patient have a stroke diagnosis?: No Physical Exam Vital Signs: Vital Signs: Last Vital Signs Temp 98.7 F 01/26/21 07:55 Pulse 58 01/26/21 07:55 Resp 18 01/26/21 07:55 BP 134/64 01/26/21 07:55 Pulse Ox 96 01/26/21 07:55 Body Mass Index 26.7 General: A X O X 3, no acute distress Neck no JVD Resp:? CTA bilateral, no accessory muscles used CVS: S1,S2,RRR, murmur GI: soft, non tender, non distended, bowel sounds audible Neuro:? motor grossly intact, alert Skin no rash Psych: appropriate affect, appropriate insight? DS: Data Data Completed and Pending Labs on day of discharge: Laboratory Results - last 24 hr 01/26/21 05:04 WBC 8.1 RBC 2.93 L Hgb 8.8 L Hct 27.2 L MCV 92.8 MCH 30.0 MCHC 32.4 RDW 14.6 Plt Count 172 MPV 9.8 Immature Gran % (Auto) 0.5 H Neut % (Auto) 66.4 Lymph % (Auto) 20.1 [place] % (Auto) 9.1 Eos % (Auto) 3.7 Baso % (Auto) 0.2 Lymph # (Auto) 1.6 [place] # (Auto) 0.7 Eos # (Auto) 0.3 Baso # (Auto) 0.0 Abs Immat Gran (auto) 0.04 H Absolute Neuts (auto) 5.4 Absolute Nucleated RBC 0.000 Nucleated RBC % (auto) 0.0 Discharge Plan Discharge Patient Disposition: Home, Self-Care Discharge Diagnosis: Acute blood loss anemia due to GI bleed Referrals: Colt Teran MD [Primary Care Provider] - 1 Week Discharge Medications: New omeprazole 20 mg Capsule,Delayed Release(Dr/Ec) 20 mg PO BID@0630,1630 Qty: 60 RF: 0 ferrous sulfate 324 mg (65 mg iron) Tablet,Delayed Release (Dr/Ec) 324 mg PO BIDWM Qty: 60 RF: 0 Continued amlodipine 2.5 mg tablet 2.5 mg PO DAILY 90 Days Qty: 90 RF: 3 atorvastatin 10 mg tablet 10 mg PO DAILY 90 Days Qty: 90 RF: 3 cholecalciferol (vitamin D3) 25 mcg (1,000 unit) capsule 25 mcg PO DAILY 90 Days Qty: 90 RF: 3 raloxifene 60 mg tablet 60 mg PO DAILY 90 Days Qty: 90 RF: 3 cyanocobalamin (vitamin B-12) [Vitamin B-12] 1,000 mcg tablet 1,000 mcg PO DAILY 90 Days Qty: 90 RF: 3 Discontinued hydrochlorothiazide 12.5 mg tablet 12.5 mg PO DAILY 90 Days Qty: 90 RF: 3 lisinopril 40 mg tablet 40 mg PO DAILY 90 Days Qty: 90 RF: 3 omeprazole 20 mg capsule,delayed release(DR/EC) 20 mg PO DAILY 90 Days Qty: 90 RF: 3 potassium chloride 8 mEq capsule, extended release 8 meq PO DAILY 90 Days Qty: 90 RF: 3 Discharge Orders: Discharge Order (Routine); Ordered 01/26/21 Ordered By: Brittani Pringle Diet: advance to usual diet Activity on Discharge: As tolerated Stand Alone Forms: Patient Portal Discharge page Care Plan Goals: Outpatient follow-up with Dr. Herrera call for appointment, return to check with any recurrent episodes of bright red blood per rectum, lightheadedness dizziness near-syncope In regard to hypertension noted to have soft blood pressure therefore lisinopril discontinued continue amlodipine dose of amlodipine can be increased if noted to have high blood pressure, take iron supplements twice daily, and Prilosec 1 tablet twice daily Health Concerns: Continue all above meds as ordered, hold hydrochlorothiazide, lisinopril and potassium supplement. Plan of Treatment: Outpatient follow-up with primary care physician in [address] Herrera to make a follow-up appointment. Assessment: As above
[2021-01-26 11:57] VITALS: BP 126/61; PULSE 65; RESP 17; TEMP 36.4; O2SAT 96
== END 2021-01-26 13:18 | disposition home or self-care (01) | DRG 241 ==
LOC: HO.ED 14:36 → HO.EDOVER 15:08 → HO.S3 01-22 12:04
PROVIDERS: Internal Medicine; Admitting Provider Internal Medicine; Emergency Provider Emergency Medicine; PCP Internal Medicine; Visit Provider Hospitalist
PROC: 0DJ08ZZ Inspection of Upper Intestinal Tract, Via Natural or Artificial Opening Endoscopic (ICD-10-PCS; CPT 43235; principal; 2021-01-22 15:00)
DX: K29.71 Gastritis, unspecified, with bleeding (principal); D62 Acute posthemorrhagic anemia; I10 Essential (primary) hypertension; Z20.822 Contact with and (suspected) exposure to COVID-19; K44.9 Diaphragmatic hernia without obstruction or gangrene; K22.70 Barrett's esophagus without dysplasia; E53.8 Deficiency of other specified B group vitamins; E78.5 Hyperlipidemia, unspecified; K31.7 Polyp of stomach and duodenum; Z79.899 Other long term (current) drug therapy; Z66 Do not resuscitate
CPT/HCPCS: 36415; 36430; 71045; 80048; 82272; 83880; 84484; 85014; 85018; 85025; 85027; 85610; 85730; 86850; 86900; 86901; 86923; 87635; 93005; 96374; 99285; P9016

== ENCOUNTER 2021-01-28 10:11 | Emergency (ER) | payer BC, SELFPAY ==
[2021-01-28 10:45] VITALS: BP 142/46; PULSE 68; RESP 18; TEMP 36.1; O2SAT 97; BMI 26.6
[2021-01-28 11:08] VITALS: BP 147/43; PULSE 66
--- NOTE | 2021-01-28 11:09 | ED.GIBLEED ---
HPI - GI Bleed General Chief complaint: GI Bleed Stated complaint: black stool Time Seen by Provider: 01/28/21 11:08 History of Present Illness HPI Narrative: Patient is 76 years old with a history of GI bleed in the past. Requiring a few units of blood transfusion. Today patient noted black stool. Contacted patient's primary physician. The stool is formed. It has consistency. Patient has been on iron. No history of being on Pepto-Bismol. Patient denies any dizziness. No abdominal pain. No nausea no vomiting. No other symptoms. Sent in by her primary for further evaluation. Related Data Previous Rx's Medication Instructions Recorded amlodipine 2.5 mg tablet 2.5 mg PO DAILY 90 Days #90 tab 09/22/20 atorvastatin 10 mg tablet 10 mg PO DAILY 90 Days #90 tab 09/22/20 cholecalciferol (vitamin D3) 25 25 mcg PO DAILY 90 Days #90 cap 09/22/20 mcg (1,000 unit) capsule cyanocobalamin (vitamin B-12) 1,000 mcg PO DAILY 90 Days #90 tab 09/22/20 1,000 mcg tablet (Vitamin B-12) raloxifene 60 mg tablet 60 mg PO DAILY 90 Days #90 tab 09/22/20 ferrous sulfate 324 mg (65 mg 324 mg PO BIDWM #60 tab 01/26/21 iron) tablet,delayed release omeprazole 20 mg capsule,delayed 20 mg PO BID@0630,1630 #60 cap 01/26/21 release Allergies Allergy/AdvReac Type Severity Reaction Status Date / Time enflurane [ENFLURANE] Allergy Severe Per Verified 11/17/20 10:27 Patient Liver toxicity piperacillin [Zosyn] Allergy Unknown Unknown Verified 11/17/20 10:27 tazobactam [Zosyn] Allergy Unknown Unknown Verified 11/17/20 10:27 Review of Systems Review of Systems: Positive black stool No chest pain or shortness of breath no diaphoresis All systems reviewed otherwise negative Yes all other systems are reviewed and are negative PMFSH Past Medical History Attestation statement: The following information was validated with the patient. Medical History Anemia Sevilla's esophagus Benign essential hypertension Cardiac murmur Hiatal hernia Osteopenia Overweight (BMI 25.0-29.9) Primary osteoarthritis of hand Pure hypercholesterolemia Vitamin B12 deficiency Vitamin D deficiency Surgical History H/O endoscopy History of appendectomy History of hysterectomy Family History Family History Father Hypertension Mother Stroke Social History Social History Household Members: None Housing: House Do you presently have visiting nurse or other home services: No Alcohol intake: never Patient Tobacco Use Status: Never used Tobacco Second Hand Smoke Exposure: No Use of substances other than those prescribed or required for medical reasons: No Advance Directives: No Advance Directives Date on File: 01/22/21 service: No Current occupational status: retired Physical Exam Vital Signs: Vital Signs: Last Vital Signs Temp 97 F 01/28/21 10:45 Pulse 65 01/28/21 11:12 Resp 18 01/28/21 10:45 BP 142/52 H 01/28/21 11:12 Pulse Ox 97 01/28/21 10:45 Body Mass Index 26.6 Appearance: Alert. Oriented X3. No acute distress. Eyes: Pupils equal, round and reactive to light. ENT: Pharynx normal. Neck: Normal inspection. Neck supple. No lymph nodes noted. No crepitus CVS: Normal heart rate and rhythm. Pulses normal. Normal S1 and S2 Respiratory: No respiratory distress. Breath sounds normal. No Wheezing. No rales Abdomen: Soft and nontender. No rigidity. No distention. good BS x4 Skin: Skin warm and dry. Normal skin color. Normal skin turgor. Extremities: No lower extremity edema. Neurovascular intact to all extremities. No Lacerations. No Rash Neuro: Oriented X 3. No motor deficit. No sensory deficit. Moving all extermities. No slurred speech MDM - GI Bleed MDM Narrative Medical decision making narrative: Patient's hemoglobin is stable. Well-appearing. Black stool likely results from use of iron. His stool was hard. It was black. Guaiac negative from below. Will discharge patient home. Patient is not orthostatic. Lab Data Attestation: I reviewed the patient's lab results. Result diagrams: 01/28/21 11:29 01/28/21 11:29 Labs: Lab Results 01/28/21 01/28/21 01/28/21 Range/Units 11:29 11:29 11:29 WBC 9.1 (4.8-10.8) X10*3/uL RBC 3.39 L (4.20-5.50) X10*6/uL Hgb 10.3 L (12.0-16.0) g/dl Hct 31.9 L (37.0-47.0) % MCV 94.1 (80.0-98.0) fL MCH 30.4 (27.0-33.0) pg MCHC 32.3 (31.0-35.0) g/dl RDW 14.4 (11.0-16.0) % Plt Count 187 (160-400) X10*3/uL MPV 9.6 (9.4-12.3) fL Immature Gran % (Auto) 0.2 (0.0-0.4) % Neut % (Auto) 79.3 H (45-73) % Lymph % (Auto) 13.4 L (20-40) % [place] % (Auto) 5.0 (2-11) % Eos % (Auto) 2.0 (0-4) % Baso % (Auto) 0.1 (0-2) % Lymph # (Auto) 1.2 (1.2-4.9) X10*3/uL [place] # (Auto) 0.5 (0.1-1.2) X10*3/uL Eos # (Auto) 0.2 (0.0-0.4) X10*3/uL Baso # (Auto) 0.0 (0.0-0.2) X10*3/uL Abs Immat Gran (auto) 0.02 (0.00-0.03) X10*3/uL Absolute Neuts (auto) 7.2 (2.0-8.3) x10*3/uL Absolute Nucleated RBC 0.000 (0.0-0.012) X10*3/uL Nucleated RBC % (auto) 0.0 (0.0-0.2) /100WBC Sodium 143 (135-145) mmol/L Potassium 3.8 (3.3-5.1) mmol/L Chloride 110 H (96-108) mmol/L Carbon Dioxide 26 (22-29) mmol/L Anion Gap 11 L (12-20) BUN 9 (9-16) mg/dL Creatinine 0.74 (0.5-1.4) mg/dL Estim Creat Clear Calc 65.8 Estimated GFR > 60 Random Glucose 95 (60-115) mg/dL Calcium 8.3 L D (8.4-10.2) mg/dL Total Bilirubin 0.5 (0.0-1.0) mg/dL Direct Bilirubin 0.2 (0.0-0.5) mg/dL AST 32 H (5-31) U/L ALT 31 (0-31) U/L Alkaline Phosphatase 49 D (39-117) U/L Total Protein 6.0 L (6.5-8.0) g/dL Albumin 3.7 (3.5-5.0) g/dL Lipase 27 (8-78) U/L Urine Color STRAW Urine Appearance CLEAR Urine pH 5.5 (5.0-8.0) Ur Specific [place] <= 1.005 (1.005-1.025) Urine Protein NEG (NEG-TRACE) MG/DL Urine Glucose (UA) NEG (NEG) MG/DL Urine Ketones NEG (NEG) MG/DL Urine Blood NEG (NEG) Urine Nitrite NEG (NEG) Ur Leukocyte Esterase TRACE H (NEG) Stool Occult Blood (NEGATIVE) 01/28/21 Range/Units 11:29 WBC (4.8-10.8) X10*3/uL RBC (4.20-5.50) X10*6/uL Hgb (12.0-16.0) g/dl Hct (37.0-47.0) % MCV (80.0-98.0) fL MCH (27.0-33.0) pg MCHC (31.0-35.0) g/dl RDW (11.0-16.0) % Plt Count (160-400) X10*3/uL MPV (9.4-12.3) fL Immature Gran % (Auto) (0.0-0.4) % Neut % (Auto) (45-73) % Lymph % (Auto) (20-40) % [place] % (Auto) (2-11) % Eos % (Auto) (0-4) % Baso % (Auto) (0-2) % Lymph # (Auto) (1.2-4.9) X10*3/uL [place] # (Auto) (0.1-1.2) X10*3/uL Eos # (Auto) (0.0-0.4) X10*3/uL Baso # (Auto) (0.0-0.2) X10*3/uL Abs Immat Gran (auto) (0.00-0.03) X10*3/uL Absolute Neuts (auto) (2.0-8.3) x10*3/uL Absolute Nucleated RBC (0.0-0.012) X10*3/uL Nucleated RBC % (auto) (0.0-0.2) /100WBC Sodium (135-145) mmol/L Potassium (3.3-5.1) mmol/L Chloride (96-108) mmol/L Carbon Dioxide (22-29) mmol/L Anion Gap (12-20) BUN (9-16) mg/dL Creatinine (0.5-1.4) mg/dL Estim Creat Clear Calc Estimated GFR Random Glucose (60-115) mg/dL Calcium (8.4-10.2) mg/dL Total Bilirubin (0.0-1.0) mg/dL Direct Bilirubin (0.0-0.5) mg/dL AST (5-31) U/L ALT (0-31) U/L Alkaline Phosphatase (39-117) U/L Total Protein (6.5-8.0) g/dL Albumin (3.5-5.0) g/dL Lipase (8-78) U/L Urine Color Urine Appearance Urine pH (5.0-8.0) Ur Specific [place] (1.005-1.025) Urine Protein (NEG-TRACE) MG/DL Urine Glucose (UA) (NEG) MG/DL Urine Ketones (NEG) MG/DL Urine Blood (NEG) Urine Nitrite (NEG) Ur Leukocyte Esterase (NEG) Stool Occult Blood NEGATIVE (NEGATIVE) Discharge Plan Discharge Clinical Impression: Black stool Patient Disposition: Home, Self-Care Instructions: Upper Endoscopy (DC) Prescriptions: No Action omeprazole 20 mg Capsule,Delayed Release(Dr/Ec) 20 mg PO BID@0630,1630 Qty: 60 RF: 0 ferrous sulfate 324 mg (65 mg iron) Tablet,Delayed Release (Dr/Ec) 324 mg PO BIDWM Qty: 60 RF: 0 amlodipine 2.5 mg tablet 2.5 mg PO DAILY 90 Days Qty: 90 RF: 3 atorvastatin 10 mg tablet 10 mg PO DAILY 90 Days Qty: 90 RF: 3 cholecalciferol (vitamin D3) 25 mcg (1,000 unit) capsule 25 mcg PO DAILY 90 Days Qty: 90 RF: 3 raloxifene 60 mg tablet 60 mg PO DAILY 90 Days Qty: 90 RF: 3 cyanocobalamin (vitamin B-12) [Vitamin B-12] 1,000 mcg tablet 1,000 mcg PO DAILY 90 Days Qty: 90 RF: 3 Referrals: Colt Teran MD [Primary Care Provider] - 2 days
[2021-01-28 11:10] VITALS: BP 139/50; PULSE 67
[2021-01-28 11:12] VITALS: BP 142/52; PULSE 65
--- NOTE | 2021-01-28 11:17 | PC.NURSE ---
patient a&ox3, family at bedside, provider performed rectal exam with this nurse present in room, pt ambulated independently to bathroom to attempt to get a urine sample
[2021-01-28 11:34] LABS: MANUAL DIFF FLAG NO
[2021-01-28 11:36] LABS: Basophils Percent Auto 0.1 % (0-2); Eosinophils Absolute Auto 0.2 X10*3/uL (0.0-0.4); Hematocrit 31.9 % (37.0-47.0); Hemoglobin 10.3 g/dl (12.0-16.0); Imm Gran Abs Auto 0.02 X10*3/uL (0.00-0.03); Imm Gran Pct Auto 0.2 % (0.0-0.4); Lymphocytes Absolute Auto 1.2 X10*3/uL (1.2-4.9); Lymphocytes Percent Auto 13.4 % (20-40); Mean Corpuscular HGB Conc 32.3 g/dl (31.0-35.0); Mean Corpuscular Hemoglobin 30.4 pg (27.0-33.0); Mean Corpuscular Volume 94.1 fL (80.0-98.0); Mean Platelet Volume 9.6 fL (9.4-12.3); Monocytes Absolute Auto 0.5 X10*3/uL (0.1-1.2); Neutrophils Absolute Auto 7.2 x10*3/uL (2.0-8.3); Neutrophils Percent Auto 79.3 % (45-73); Platelet Count 187 X10*3/uL (160-400); Red Blood Count 3.39 X10*6/uL (4.20-5.50); Red Cell Distribution Width 14.4 % (11.0-16.0); White Blood Count 9.1 X10*3/uL (4.8-10.8)
[2021-01-28 11:37] LABS: Appearance Urine CLEAR; Color Urine STRAW; Glucose Urine UA NEG (NEG); Leukocyte Esterase Urine TRACE (NEG); Nitrite Urine NEG (NEG); OBS Int Ctl Valid YES; OBS1 NEGATIVE (NEGATIVE); PH 5.5 (5.0-8.0); Specific Gravity - Urine <= 1.005 (1.005-1.025); UACC Culture Trigger YES; Urine Blood NEG (NEG); Urine Ketones NEG (NEG); Urine Protein NEG (NEG-TRACE)
--- NOTE | 2021-01-28 11:50 | PC.NURSE ---
labs obtained, urine obtained, pt awaiting results, will continue to monitor.
[2021-01-28 11:53] LABS: Alanine Aminotransferase 31 U/L (0-31); Albumin Level 3.7 g/dL (3.5-5.0); Alkaline Phosphatase 49 U/L (39-117); Anion Gap 11 (12-20); Aspartate Amino Transferase 32 U/L (5-31); Bilirubin Direct 0.2 mg/dL (0.0-0.5); Bilirubin Total 0.5 mg/dL (0.0-1.0); Blood Urea Nitrogen 9 mg/dL (9-16); Calcium 8.3 mg/dL (8.4-10.2); Carbon Dioxide 26 mmol/L (22-29); Chloride 110 mmol/L (96-108); Creatinine Clr Calc Pharmacy 65.8; Estimated Glomerular Filt Rate > 60; Glucose Random 95 mg/dL (60-115); Lipase 27 U/L (8-78); Potassium 3.8 mmol/L (3.3-5.1); Sodium 143 mmol/L (135-145)
[2021-01-28 12:53] LABS: RBC Urine 0 /HPF (0); Squamous Epithelial Cell Urine 1+ /LPF; WBC Urine 0-2 /HPF (0-4)
== END 2021-01-28 12:20 | disposition home or self-care (01) ==
PROVIDERS: Emergency Provider Emergency Medicine Emergency Medical Services; PCP Internal Medicine
DX: K92.1 Melena (principal); I10 Essential (primary) hypertension; E78.00 Pure hypercholesterolemia, unspecified; Z79.899 Other long term (current) drug therapy
CPT/HCPCS: 36415; 80048; 80076; 81001; 82272; 83690; 85025; 87086; 99283; 99284

== ENCOUNTER 2021-01-31 10:48 | Outpatient (REF) | payer BC, SELFPAY ==
[2021-01-31 13:58] LABS: MANUAL DIFF FLAG NO
[2021-01-31 14:01] LABS: Basophils Percent Auto 0.4 % (0-2); Eosinophils Absolute Auto 0.2 X10*3/uL (0.0-0.4); Eosinophils Percent Auto 3.2 % (0-4); Hematocrit 30.2 % (37.0-47.0); Imm Gran Abs Auto 0.02 X10*3/uL (0.00-0.03); Imm Gran Pct Auto 0.4 % (0.0-0.4); Lymphocytes Percent Auto 18.5 % (20-40); Mean Corpuscular HGB Conc 33.1 g/dl (31.0-35.0); Mean Corpuscular Hemoglobin 31.6 pg (27.0-33.0); Mean Corpuscular Volume 95.6 fL (80.0-98.0); Mean Platelet Volume 10.6 fL (9.4-12.3); Monocytes Absolute Auto 0.6 X10*3/uL (0.1-1.2); Neutrophils Absolute Auto 3.7 x10*3/uL (2.0-8.3); Neutrophils Percent Auto 66.5 % (45-73); Platelet Count 193 X10*3/uL (160-400); Red Blood Count 3.16 X10*6/uL (4.20-5.50); Red Cell Distribution Width 13.9 % (11.0-16.0); White Blood Count 5.6 X10*3/uL (4.8-10.8)
[2021-01-31 14:41] LABS: Anion Gap 10 (12-20); Blood Urea Nitrogen 11 mg/dL (9-16); Calcium 8.6 mg/dL (8.4-10.2); Carbon Dioxide 29 mmol/L (22-29); Chloride 108 mmol/L (96-108); Estimated Glomerular Filt Rate > 60; Glucose Random 72 mg/dL (60-115); Iron 117 mcg/dL (30-160); Percent Iron Saturation 29 % (15-50); Potassium 3.8 mmol/L (3.3-5.1); Sodium 143 mmol/L (135-145); Total Iron Binding Capacity 406 mcg/dL (228-428); Unsaturated Iron Binding 289 ug/dL
== END 2021-01-31 10:49 | disposition home or self-care (01) ==
LOC: HO.10HDL 10:48
PROVIDERS: Visit Provider Nurse Practitioner Family
DX: D62 Acute posthemorrhagic anemia (principal); D50.9 Iron deficiency anemia, unspecified; K92.2 Gastrointestinal hemorrhage, unspecified; I10 Essential (primary) hypertension
CPT/HCPCS: 36415; 80048; 83540; 85025

== ENCOUNTER 2021-02-12 11:01 | Outpatient (REF) | payer BC, SELFPAY ==
[2021-02-12 13:56] LABS: MANUAL DIFF FLAG NO
[2021-02-12 14:06] LABS: Basophils Percent Auto 0.4 % (0-2); Eosinophils Absolute Auto 0.2 X10*3/uL (0.0-0.4); Eosinophils Percent Auto 3.3 % (0-4); Hematocrit 33.6 % (37.0-47.0); Hemoglobin 11.2 g/dl (12.0-16.0); Imm Gran Abs Auto 0.02 X10*3/uL (0.00-0.03); Imm Gran Pct Auto 0.3 % (0.0-0.4); Lymphocytes Absolute Auto 1.3 X10*3/uL (1.2-4.9); Lymphocytes Percent Auto 17.9 % (20-40); Mean Corpuscular HGB Conc 33.3 g/dl (31.0-35.0); Mean Corpuscular Hemoglobin 31.6 pg (27.0-33.0); Mean Corpuscular Volume 94.9 fL (80.0-98.0); Mean Platelet Volume 10.7 fL (9.4-12.3); Monocytes Absolute Auto 0.5 X10*3/uL (0.1-1.2); Monocytes Percent Auto 6.6 % (2-11); Neutrophils Percent Auto 71.5 % (45-73); Platelet Count 300 X10*3/uL (160-400); Red Blood Count 3.54 X10*6/uL (4.20-5.50); Red Cell Distribution Width 13.3 % (11.0-16.0)
[2021-02-12 14:39] LABS: Iron 67 mcg/dL (30-160); Percent Iron Saturation 17 % (15-50); Total Iron Binding Capacity 395 mcg/dL (228-428); Unsaturated Iron Binding 328 ug/dL
[2021-02-12 14:40] LABS: Ferritin 21 ng/mL (10-250)
== END 2021-02-12 11:02 | disposition home or self-care (01) ==
LOC: HO.10HDL 11:01
PROVIDERS: Visit Provider Internal Medicine
DX: D50.0 Iron deficiency anemia secondary to blood loss (chronic) (principal)
CPT/HCPCS: 36415; 82728; 83540; 85025

== ENCOUNTER 2021-03-07 10:33 | Day surgery (SDC) | payer BC, SELFPAY ==
[2021-03-01 11:47] VITALS: BMI 26.6
--- NOTE | 2021-03-06 12:14 | P.CONAN_ITS ---
Documented by User: Luisa Guy NP 03/06/21 12:20 HPI - Anesthesia Eval Consult details Narrative: 76yo F for Upper Endoscopy s/p EGD 01/2021 with MAC PMFSH Active Problems Active Problems: All Active Problems (Updated 03/01/21 @ 11:47 by Jerilyn Marcial, RN) Iron deficiency anemia (Acute) Acute blood loss anemia (Acute) Difficulty sleeping (Acute) Overweight (BMI 25.0-29.9) (Acute) Primary osteoarthritis of hand (Acute) Vitamin D deficiency (Acute) Osteopenia (Acute) Cardiac murmur (Acute) Hiatal hernia (Acute) Benign essential hypertension (Acute) Pure hypercholesterolemia (Acute) Past Medical History Medical History (Updated 03/01/21 @ 11:47 by Jerilyn Marcial RN) Anemia Sevilla's esophagus Benign essential hypertension Cardiac murmur Hiatal hernia History of blood transfusion Osteopenia Overweight (BMI 25.0-29.9) Primary osteoarthritis of hand Pure hypercholesterolemia Vitamin B12 deficiency Vitamin D deficiency Family History Family History Father Hypertension Mother Stroke Family history of problems with anesthesia: No Surgical History Surgical History (Updated 03/01/21 @ 12:01 by Jerilyn Marcial RN) History of appendectomy History of esophagogastroduodenoscopy (EGD) History of hysterectomy History of Problems with Anesthesia: No Social History Social History Household Members: None Housing: House Do you presently have visiting nurse or other home services: No Alcohol intake: never Patient Tobacco Use Status: Never used Tobacco Second Hand Smoke Exposure: No Have you been hit, kicked, punched, or otherwise hurt by someone within the past year? If so, by whom?: No Are you DNR?: No Advance Directives: Yes Advance Directives Information Provided: No Advance Directives on File: Yes Advance Directives Date on File: 01/22/21 service: No Current occupational status: retired Meds Allergies Allergy/AdvReac Type Severity Reaction Status Date / Time enflurane [ENFLURANE] Allergy Severe Per Verified 01/31/21 10:05 Patient Liver toxicity piperacillin [Zosyn] Allergy Unknown Unknown Verified 01/31/21 10:05 tazobactam [Zosyn] Allergy Unknown Unknown Verified 01/31/21 10:05 Exam Exam Date and Time: March 06, 2021 1214 Height,Weight and Vital Signs: Height 5 ft 6 in Weight 74.843 kg Pertinent Lab Results Pertinent Lab Results: Laboratory Tests 01/31/21 02/12/21 10:50 11:11 WBC 7.0 Hgb 11.2 L Hct 33.6 L Plt Count 300 D Sodium 143 Potassium 3.8 Chloride 108 Carbon Dioxide 29 BUN 11 Creatinine 0.72 Narrative Narrative: EKG 01/22/21 Vent. Rate : 063 BPM ? ? Atrial Rate : 063 BPM ?? P-R Int : 148 ms? QRS Dur : 098 ms ? ? QT Int : 446 ms ? ? ? P-R-T Axes : 051 018 047 degrees ?? QTc Int : 456 ms ? Normal sinus rhythm Minimal voltage criteria for LVH, may be normal variant ( R in aVL ) Nonspecific ST and T wave abnormality Abnormal ECG When compared with ECG of 21-JAN-2021 11:45, Vent. rate has decreased BY? [address] less depressed in Inferior leads Lateral leads Assessment and Plan Assessment Anesthesia Assessment: Chart Reviewed Final Anesthetic Review Family History of Problems with Anesthesia: No History of Problems with Anesthesia: No Documented by User: Milad Blake 03/07/21 17:02 [facility] Past Medical History Medical History (Updated 03/01/21 @ 11:47 by Jerilyn Marcial, NOELLE) Anemia Sevilla's esophagus Benign essential hypertension Cardiac murmur Hiatal hernia History of blood transfusion Osteopenia Overweight (BMI 25.0-29.9) Primary osteoarthritis of hand Pure hypercholesterolemia Vitamin B12 deficiency Vitamin D deficiency Family History Family History Father Hypertension Mother Stroke Surgical History Surgical History (Updated 03/01/21 @ 12:01 by Jerilyn Marcial, NOELLE) History of appendectomy History of esophagogastroduodenoscopy (EGD) History of hysterectomy Social History Social History Household Members: None Housing: House Do you presently have visiting nurse or other home services: No Alcohol intake: never Patient Tobacco Use Status: Never used Tobacco Second Hand Smoke Exposure: No Have you been hit, kicked, punched, or otherwise hurt by someone within the past year? If so, by whom?: No Are you DNR?: No Advance Directives: Yes Advance Directives Information Provided: No Advance Directives on File: Yes Advance Directives Date on File: 01/22/21 service: No Current occupational status: retired Meds Allergies Allergy/AdvReac Type Severity Reaction Status Date / Time enflurane [ENFLURANE] Allergy Severe Per Verified 01/31/21 10:05 Patient Liver toxicity piperacillin [Zosyn] Allergy Unknown Unknown Verified 01/31/21 10:05 tazobactam [Zosyn] Allergy Unknown Unknown Verified 01/31/21 10:05 Exam Airway Mallampati Class: II TM Dist: >3cm Neck ROM: Full Loose/Missing/Broken Teeth: Yes (Chipped teeth ,poor dentition . Right upper filing . ) Heart: rrr Lungs: bl breath sounds Assessment and Plan Final Anesthetic Review NPO: Yes ASA Class: II Final Preanesthetic Review: Meds/Allgs Chart Reviewed Patient Risk: Intermediate Procedure Risk: Intermediate Anesthetic Plan Anesthetic Plan: MAC: Disposition: Standard PACU
[2021-03-07 10:48] VITALS: BP 158/34; PULSE 60; RESP 18; TEMP 36.3; O2SAT 98
[2021-03-07] MEDS: Lactated Ringers 1,000 ML 100 ML IVCONT (11:05)
[2021-03-07 12:19] VITALS: BP 106/53; PULSE 56; RESP 16; TEMP 36.2; O2SAT 99
--- NOTE | 2021-03-07 12:23 | P.BOP_ITS ---
Brief Operative Note Date of Service: 03/07/21 Pre-op diagnosis: Anemia, UGI bleed Post-op diagnosis: other (Proximal gastric ulcer, Hiatal hernia, Sevilla's) Procedure: EGD with biopsies Surgeon: Emiliano Herrera Anesthesia: MAC Was an Electrical Intern used for this Procedure?: No Estimated blood loss (mL): 3.0 Pathology: other (A. Proximal gastric ulcer) Condition: stable Disposition: PACU
[2021-03-07 12:34] VITALS: BP 114/57; PULSE 56; RESP 17; TEMP 36.2; O2SAT 97
--- NOTE | 2021-03-07 12:53 | OP_ITS ---
SURGEON: Emiliano Herrera MD INDICATIONS: The patient presents for evaluation of anemia and suspected upper GI bleeding. Full consent was obtained from her for this, including risks of bleeding and perforation. PREOPERATIVE DIAGNOSIS: POSTOPERATIVE DIAGNOSIS: Anemia and suspected upper gastrointestinal bleeding, proximal gastric ulcer, hiatal hernia, Sevilla's esophagus. PROCEDURE PERFORMED: Esophagogastroscopy with biopsies. ESTIMATED BLOOD LOSS: COMPLICATIONS: ANESTHESIA: Medication used, monitored anesthesia care. ASSISTANTS: SPECIMENS: PREOPERATIVE DIAGNOSES: Anemia and suspected upper gastrointestinal bleeding. DESCRIPTION OF PROCEDURE: The patient was placed in the left lateral decubitus position. The Olympus video gastroscope was passed into the posterior oropharynx and upper esophagus under direct vision. The scope was passed slowly into the distal esophagus. The gastroesophageal junction appeared at 34 cm. Extending from this to 30 cm, was her known segment of Sevilla's mucosa, but without any esophagitis nor any lesions. Biopsies were not obtained on this occasion as they had been obtained in 2019, and there was no dysplasia. The scope entered into the stomach and was advanced to the pylorus. The duodenum was cannulated to the descending portion. The duodenum was carefully inspected. I did not visualize any sign of mucosal abnormalities other than perhaps some very minimal duodenitis in the duodenal bulb and descending duodenum, but there was no sign of any bleeding, ulceration, nor angiodysplasias. Some lymphangiectasia was noted as well. The scope was withdrawn back into the stomach. The gastric antrum and body appeared normal with good peristalsis. The proximal stomach was carefully inspected both in the forward viewing and retroflexed position. There were multiple hyperplastic-appearing polyps in the stomach, which had been biopsied previously. However, in the very proximal stomach, just beneath the hiatal hernia, on what appeared to be the greater curvature and posterior wall was a shallow, but seemingly ulcerated area between folds, which had some friability and easy oozing of blood when irrigated. The margins of this did appear to be consistent with that of an ulcer as well. Multiple biopsies were obtained from the margins as well as one or two from the ulcer itself. Again, it was quite friable. The remainder of the proximal stomach appeared normal other than the hyperplastic-appearing gastric polyps. The scope was withdrawn back to the esophagus. Her moderate-sized hiatal hernia was visualized. Again, the esophageal mucosa between 30 and 34 cm was consistent with Sevilla's mucosa. Proximal to 30 cm, the esophageal mucosa appeared normal. The scope was withdrawn from the patient. She tolerated the procedure well and was returned to the recovery area in stable condition. IMPRESSION: 1. Proximal gastric ulcer, status post biopsy. 2. Hiatal hernia and Sevilla's esophagus. 3. Gastric polyps. PLAN: The results of the biopsies will be checked. She will continue her omeprazole twice a day and iron supplements. She will have a followup blood count later this month. Further plans will be made depending upon the results of today's biopsies. She has been advised to stay off all aspirin and NSAIDs long-term. MD JUDY Patel/MARGARET / [phone]
== END 2021-03-07 13:00 | disposition home or self-care (01) ==
PROVIDERS: PCP Internal Medicine; Visit Provider Internal Medicine
PROC: 0DJ08ZZ Inspection of Upper Intestinal Tract, Via Natural or Artificial Opening Endoscopic (ICD-10-PCS; CPT 43235; principal; 2021-03-07 11:30)
DX: K25.9 Gastric ulcer, unspecified as acute or chronic, without hemorrhage or perforation (principal); D64.9 Anemia, unspecified; K31.9 Disease of stomach and duodenum, unspecified; K21.9 Gastro-esophageal reflux disease without esophagitis; K22.70 Barrett's esophagus without dysplasia; K44.9 Diaphragmatic hernia without obstruction or gangrene; I10 Essential (primary) hypertension; E78.5 Hyperlipidemia, unspecified; Z79.899 Other long term (current) drug therapy; Z88.8 Allergy status to other drugs, medicaments and biological substances
CPT/HCPCS: 43239; 88305; 88342

== ENCOUNTER 2021-03-12 12:44 | Outpatient (REF) | payer BC, SELFPAY ==
[2021-03-12 14:53] LABS: MANUAL DIFF FLAG NO
[2021-03-12 14:59] LABS: Basophils Percent Auto 0.4 % (0-2); Eosinophils Absolute Auto 0.3 X10*3/uL (0.0-0.4); Hematocrit 35.3 % (37.0-47.0); Hemoglobin 11.8 g/dl (12.0-16.0); Imm Gran Abs Auto 0.03 X10*3/uL (0.00-0.03); Imm Gran Pct Auto 0.4 % (0.0-0.4); Lymphocytes Absolute Auto 1.6 X10*3/uL (1.2-4.9); Lymphocytes Percent Auto 20.9 % (20-40); Mean Corpuscular HGB Conc 33.4 g/dl (31.0-35.0); Mean Corpuscular Hemoglobin 30.8 pg (27.0-33.0); Mean Corpuscular Volume 92.2 fL (80.0-98.0); Mean Platelet Volume 10.7 fL (9.4-12.3); Monocytes Absolute Auto 0.6 X10*3/uL (0.1-1.2); Monocytes Percent Auto 7.4 % (2-11); Neutrophils Absolute Auto 5.1 x10*3/uL (2.0-8.3); Neutrophils Percent Auto 66.9 % (45-73); Platelet Count 203 X10*3/uL (160-400); Red Blood Count 3.83 X10*6/uL (4.20-5.50); Red Cell Distribution Width 13.4 % (11.0-16.0); White Blood Count 7.6 X10*3/uL (4.8-10.8)
== END 2021-03-12 12:45 | disposition home or self-care (01) ==
LOC: HO.10HDL 12:44
PROVIDERS: Visit Provider Internal Medicine
DX: K92.2 Gastrointestinal hemorrhage, unspecified (principal)
CPT/HCPCS: 36415; 85025

== ENCOUNTER 2021-03-29 15:37 | Outpatient (REF) | payer BC, SELFPAY ==
[2021-03-29 15:48] LABS: MANUAL DIFF FLAG NO
--- NOTE | 2021-03-29 15:49 | ECG_ITS ---
Test Reason : DIZZINESS Blood Pressure : / mmHG Vent. Rate : 073 BPM Atrial Rate : 073 BPM P-R Int : 144 ms QRS Dur : 098 ms QT Int : 416 ms P-R-T Axes : 060 028 028 degrees QTc Int : 458 ms Normal sinus rhythm with sinus arrhythmia Left ventricular hypertrophy with repolarization abnormality ( R in aVL , Sokolow-Gtz , Segundo product ) Cannot rule out Septal infarct , age undetermined Abnormal ECG When compared with ECG of 22-JAN-2021 15:40, Minimal criteria for Septal infarct are now Present Referred By: Jessica Ureña Electronically Signed By:SAMIRA DIAZ MD
[2021-03-29 17:09] LABS: Basophils Absolute Auto 0.1 X10*3/uL (0.0-0.2); Basophils Percent Auto 0.6 % (0-2); Eosinophils Absolute Auto 0.3 X10*3/uL (0.0-0.4); Eosinophils Percent Auto 3.2 % (0-4); Hematocrit 42.1 % (37.0-47.0); Hemoglobin 13.2 g/dl (12.0-16.0); Imm Gran Abs Auto 0.04 X10*3/uL (0.00-0.03); Imm Gran Pct Auto 0.4 % (0.0-0.4); Lymphocytes Absolute Auto 2.1 X10*3/uL (1.2-4.9); Lymphocytes Percent Auto 19.9 % (20-40); Mean Corpuscular HGB Conc 31.4 g/dl (31.0-35.0); Mean Corpuscular Hemoglobin 28.5 pg (27.0-33.0); Mean Corpuscular Volume 90.9 fL (80.0-98.0); Mean Platelet Volume 10.9 fL (9.4-12.3); Monocytes Absolute Auto 0.8 X10*3/uL (0.1-1.2); Monocytes Percent Auto 7.7 % (2-11); Neutrophils Absolute Auto 7.1 x10*3/uL (2.0-8.3); Neutrophils Percent Auto 68.2 % (45-73); Platelet Count 252 X10*3/uL (160-400); Red Blood Count 4.63 X10*6/uL (4.20-5.50); Red Cell Distribution Width 13.2 % (11.0-16.0); White Blood Count 10.3 X10*3/uL (4.8-10.8)
[2021-03-29 17:32] LABS: Alanine Aminotransferase 23 U/L (0-31); Albumin Level 4.2 g/dL (3.5-5.0); Alkaline Phosphatase 52 U/L (39-117); Anion Gap 10 (12-20); Aspartate Amino Transferase 25 U/L (5-31); Bilirubin Total 0.3 mg/dL (0.0-1.0); Blood Urea Nitrogen 18 mg/dL (9-16); Calcium 9.4 mg/dL (8.4-10.2); Carbon Dioxide 29 mmol/L (22-29); Chloride 106 mmol/L (96-108); Estimated Glomerular Filt Rate > 60; Glucose Random 106 mg/dL (60-115); Iron 99 mcg/dL (30-160); Percent Iron Saturation 25 % (15-50); Potassium 4.2 mmol/L (3.3-5.1); Sodium 141 mmol/L (135-145); Total Iron Binding Capacity 403 mcg/dL (228-428); Total Protein 7.2 g/dL (6.5-8.0); Unsaturated Iron Binding 304 ug/dL
[2021-03-29 17:52] LABS: TSH reflex Free T4 3.82 uIU/mL (0.32-4.0)
== END 2021-03-29 15:38 | disposition home or self-care (01) ==
LOC: HO.LAB 15:37
PROVIDERS: PCP Internal Medicine; Visit Provider Nurse Practitioner Family
DX: R42 Dizziness and giddiness (principal); I10 Essential (primary) hypertension; D50.9 Iron deficiency anemia, unspecified; I50.1 Left ventricular failure, unspecified; I49.40 Unspecified premature depolarization; R94.31 Abnormal electrocardiogram [ECG] [EKG]
CPT/HCPCS: 36415; 80053; 83540; 84443; 85025; 93005

== ENCOUNTER 2021-04-13 13:42 | Outpatient (REF) | payer BC, SELFPAY ==
[2021-04-13 14:17] LABS: MANUAL DIFF FLAG NO
[2021-04-13 14:24] LABS: Basophils Percent Auto 0.3 % (0-2); Eosinophils Absolute Auto 0.2 X10*3/uL (0.0-0.4); Eosinophils Percent Auto 2.6 % (0-4); Hematocrit 39.4 % (37.0-47.0); Hemoglobin 12.8 g/dl (12.0-16.0); Imm Gran Abs Auto 0.04 X10*3/uL (0.00-0.03); Imm Gran Pct Auto 0.5 % (0.0-0.4); Lymphocytes Absolute Auto 1.7 X10*3/uL (1.2-4.9); Mean Corpuscular HGB Conc 32.5 g/dl (31.0-35.0); Mean Corpuscular Hemoglobin 28.6 pg (27.0-33.0); Mean Corpuscular Volume 88.1 fL (80.0-98.0); Mean Platelet Volume 10.7 fL (9.4-12.3); Monocytes Absolute Auto 0.7 X10*3/uL (0.1-1.2); Monocytes Percent Auto 7.4 % (2-11); Neutrophils Absolute Auto 6.2 x10*3/uL (2.0-8.3); Neutrophils Percent Auto 70.2 % (45-73); Platelet Count 198 X10*3/uL (160-400); Red Blood Count 4.47 X10*6/uL (4.20-5.50); Red Cell Distribution Width 13.4 % (11.0-16.0); White Blood Count 8.9 X10*3/uL (4.8-10.8)
[2021-04-13 14:43] LABS: Iron 91 mcg/dL (30-160); Percent Iron Saturation 23 % (15-50); Total Iron Binding Capacity 389 mcg/dL (228-428); Unsaturated Iron Binding 298 ug/dL
[2021-04-13 15:03] LABS: Ferritin 32 ng/mL (10-250)
== END 2021-04-13 13:43 | disposition home or self-care (01) ==
LOC: HO.LAB 13:42
PROVIDERS: PCP Internal Medicine; Visit Provider Internal Medicine
DX: D50.0 Iron deficiency anemia secondary to blood loss (chronic) (principal)
CPT/HCPCS: 36415; 82728; 83540; 85025

== ENCOUNTER 2021-08-01 08:52 | Outpatient (REF) | payer BC, SELFPAY ==
[2021-08-01 09:08] LABS: MANUAL DIFF FLAG NO
[2021-08-01 09:27] LABS: Basophils Absolute Auto 0.1 X10*3/uL (0.0-0.2); Basophils Percent Auto 0.6 % (0-2); Eosinophils Absolute Auto 0.3 X10*3/uL (0.0-0.4); Eosinophils Percent Auto 4.3 % (0-4); Hematocrit 40.2 % (37.0-47.0); Hemoglobin 12.6 g/dl (12.0-16.0); Imm Gran Abs Auto 0.03 X10*3/uL (0.00-0.03); Imm Gran Pct Auto 0.4 % (0.0-0.4); Lymphocytes Absolute Auto 1.8 X10*3/uL (1.2-4.9); Lymphocytes Percent Auto 23.1 % (20-40); Mean Corpuscular HGB Conc 31.3 g/dl (31.0-35.0); Mean Corpuscular Hemoglobin 28.4 pg (27.0-33.0); Mean Corpuscular Volume 90.5 fL (80.0-98.0); Monocytes Absolute Auto 0.6 X10*3/uL (0.1-1.2); Monocytes Percent Auto 7.3 % (2-11); Neutrophils Percent Auto 64.3 % (45-73); Platelet Count 205 X10*3/uL (160-400); Red Blood Count 4.44 X10*6/uL (4.20-5.50); Red Cell Distribution Width 12.1 % (11.0-16.0); White Blood Count 7.8 X10*3/uL (4.8-10.8)
[2021-08-01 09:44] LABS: Appearance Urine CLEAR; Color Urine YELLOW; Glucose Urine UA NEG (NEG); Leukocyte Esterase Urine 1+ (NEG); Nitrite Urine NEG (NEG); PH 6.5 (5.0-8.0); Specific Gravity - Urine <= 1.005 (1.005-1.025); UACC Culture Trigger YES; Urine Blood TRACE (NEG); Urine Ketones NEG (NEG); Urine Protein NEG (NEG-TRACE)
[2021-08-01 10:01] LABS: Alanine Aminotransferase 19 U/L (0-31); Albumin Level 3.9 g/dL (3.5-5.0); Alkaline Phosphatase 52 U/L (39-117); Anion Gap 10 (12-20); Aspartate Amino Transferase 22 U/L (5-31); Bilirubin Total 0.4 mg/dL (0.0-1.0); Blood Urea Nitrogen 15 mg/dL (9-16); Calcium 9.4 mg/dL (8.4-10.2); Carbon Dioxide 30 mmol/L (22-29); Chloride 106 mmol/L (96-108); Cholesterol 154 mg/dL; Estimated Glomerular Filt Rate > 60; Glucose Fasting 91 mg/dL (60-99); HDL Cholesterol 39 mg/dL; LDL Cholesterol Calculated 83 mg/dl; Potassium 4.6 mmol/L (3.3-5.1); Sodium 141 mmol/L (135-145); Total Protein 6.9 g/dL (6.5-8.0); Triglycerides 160 mg/dL
[2021-08-01 10:14] LABS: Bacteria Urine 1+ /LPF; Squamous Epithelial Cell Urine 1+ /LPF; WBC Urine 30-49 /HPF (0-4)
[2021-08-01 10:23] LABS: TSH reflex Free T4 3.13 uIU/mL (0.32-4.0); Vitamin D 25-OH Total 45.9 ng/mL (>30)
[2021-08-01 10:35] LABS: Folate 17.8 ng/mL (> or = 4.0); Vitamin B12 883 pg/mL (200-900)
== END 2021-08-01 08:53 | disposition home or self-care (01) ==
LOC: HO.LAB 08:52
PROVIDERS: PCP Internal Medicine; Visit Provider Internal Medicine
DX: I10 Essential (primary) hypertension (principal); E53.8 Deficiency of other specified B group vitamins; E78.00 Pure hypercholesterolemia, unspecified; E55.9 Vitamin D deficiency, unspecified
CPT/HCPCS: 36415; 80053; 80061; 81001; 82306; 82607; 82746; 84443; 85025; 87086; 87088; 87186

== ENCOUNTER 2021-08-16 10:38 | Outpatient (REF) | payer BC, SELFPAY ==
--- NOTE | ~2021-08-16 | MM_ITS ---
EXAMINATION: MM SCREENING DIGITAL BREAST TOMOSYNTHESIS, BILATERAL CLINICAL INFORMATION: Screening. Asymptomatic. The lifetime risk of breast cancer based on the Tyrer-Cuzick Model is 3.8%. COMPARISON: Mammography: August 15, 2020 and studies dating back to January 30, 2012 TECHNIQUE: Digital breast tomosynthesis is performed in both the craniocaudal and mediolateral oblique views along with computer-aided detection (CAD). Synthesized 2D images are generated from the tomosynthesis. FINDINGS: There are scattered areas of fibroglandular density (ACR BI-RADS breast composition Category b). There are no significant masses, abnormal calcifications, or other abnormalities. MM/MM tomosynthesis screening BI IMPRESSION: There are no significant changes from prior study. ASSESSMENT: BI-RADS 1: Negative RECOMMENDATION: Routine annual mammography screening. This patient's information was entered into a reminder system with a target due date for their next mammogram.
== END 2021-08-16 10:39 | disposition home or self-care (01) ==
LOC: HO.MAMMO 10:38
PROVIDERS: Visit Provider Internal Medicine
DX: Z12.31 Encounter for screening mammogram for malignant neoplasm of breast (principal)
CPT/HCPCS: 77063; 77067

== ENCOUNTER 2021-09-26 11:18 | Outpatient (REF) | payer BC, SELFPAY ==
[2021-09-26 12:55] LABS: Blood Urea Nitrogen 15 mg/dL (9-16); Estimated Glomerular Filt Rate > 60
== END 2021-09-26 11:19 | disposition home or self-care (01) ==
LOC: HO.LAB 11:18
PROVIDERS: PCP Internal Medicine; Visit Provider Internal Medicine Cardiovascular Disease
DX: R01.1 Cardiac murmur, unspecified (principal)
CPT/HCPCS: 36415; 82565; 84520

== ENCOUNTER 2021-10-23 12:14 | Emergency (ER) | payer BC, SELFPAY ==
[2021-10-23 13:18] VITALS: BP 156/109; PULSE 78; RESP 16; TEMP 36; O2SAT 96; BMI 27.7
[2021-10-23 13:30] LABS: MANUAL DIFF FLAG NO
[2021-10-23 13:32] LABS: Basophils Percent Auto 0.4 % (0-2); Eosinophils Absolute Auto 0.2 X10*3/uL (0.0-0.4); Eosinophils Percent Auto 2.3 % (0-4); Hematocrit 36.7 % (37.0-47.0); Hemoglobin 12.1 g/dl (12.0-16.0); Imm Gran Abs Auto 0.04 X10*3/uL (0.00-0.03); Imm Gran Pct Auto 0.4 % (0.0-0.4); Lymphocytes Absolute Auto 2.1 X10*3/uL (1.2-4.9); Lymphocytes Percent Auto 20.2 % (20-40); Mean Corpuscular Hemoglobin 28.7 pg (27.0-33.0); Mean Corpuscular Volume 87.2 fL (80.0-98.0); Monocytes Absolute Auto 0.8 X10*3/uL (0.1-1.2); Monocytes Percent Auto 7.4 % (2-11); Neutrophils Absolute Auto 7.3 x10*3/uL (2.0-8.3); Neutrophils Percent Auto 69.3 % (45-73); Platelet Count 210 X10*3/uL (160-400); Red Blood Count 4.21 X10*6/uL (4.20-5.50); Red Cell Distribution Width 12.8 % (11.0-16.0); White Blood Count 10.5 X10*3/uL (4.8-10.8)
[2021-10-23 13:50] LABS: Anion Gap 15 (12-20); Blood Urea Nitrogen 19 mg/dL (9-16); Calcium 9.1 mg/dL (8.4-10.2); Carbon Dioxide 24 mmol/L (22-29); Chloride 108 mmol/L (96-108); Creatinine Clr Calc Pharmacy 66.2; Estimated Glomerular Filt Rate > 60; Glucose Random 82 mg/dL (60-115); Potassium 3.9 mmol/L (3.3-5.1); Sodium 143 mmol/L (135-145)
--- NOTE | 2021-10-23 16:52 | ED_ITS ---
HPI - GI Bleed General Chief complaint: GI Bleed Stated complaint: Blood in stool Time Seen by Provider: 10/23/21 16:52 Source: patient Mode of arrival: ambulatory Limitations: no limitations History of Present Illness HPI Narrative: Patient history of Sevilla's esophagus with upper GI bleed from proximal gastric ulcer in 03/13 comes here for bright red blood per rectum since morning today patient had 2 bowel movements normal color stool but had streaks of blood and had a small amount of blood no blood clots no abdominal pain no dizziness no nausea vomiting Related Data Home Medications Medication Instructions Recorded Confirmed ferrous sulfate 324 mg (65 mg 324 mg PO DAILY 08/10/21 08/10/21 iron) tablet,delayed release omeprazole 40 mg capsule,delayed 40 mg PO DAILY 08/10/21 08/10/21 release Previous Rx's Medication Instructions Recorded cholecalciferol (vitamin D3) 25 25 mcg PO DAILY 90 days #90 caps 09/22/20 mcg (1,000 unit) capsule cyanocobalamin (vitamin B-12) 1,000 mcg PO DAILY 90 days #90 tabs 09/22/20 1,000 mcg tablet (Vitamin B-12) lorazepam 0.5 mg tablet See Rx Instructions .Route 06/22/21 .COMPLEX PRN anxiety 1 day #2 tabs levofloxacin 250 mg tablet 250 mg PO DAILY 7 days #7 tabs 08/10/21 atorvastatin 10 mg tablet 10 mg PO DAILY 90 days #90 tabs 09/04/21 raloxifene 60 mg tablet 60 mg PO DAILY 90 days #90 tabs 09/04/21 amlodipine 2.5 mg tablet 2.5 mg PO DAILY 90 days #90 tabs 09/23/21 Allergies Allergy/AdvReac Type Severity Reaction Status Date / Time enflurane [ENFLURANE] Allergy Severe Per Verified 10/23/21 13:18 Patient Liver toxicity piperacillin [Zosyn] Allergy Unknown Unknown Verified 10/23/21 13:18 tazobactam [Zosyn] Allergy Unknown Unknown Verified 10/23/21 13:18 [facility] Past Medical History Medical History Anemia Sevilla's esophagus Benign essential hypertension Cardiac murmur Gastric ulcer Hiatal hernia History of blood transfusion Osteopenia Overweight (BMI 25.0-29.9) Primary osteoarthritis of hand Pure hypercholesterolemia Vitamin B12 deficiency Vitamin D deficiency Surgical History History of appendectomy History of esophagogastroduodenoscopy (EGD) History of hysterectomy Family History Family History Father Hypertension Mother Stroke Social History Social History Household Members: None Housing: House Do you presently have visiting nurse or other home services: No Alcohol intake: never Patient Tobacco Use Status: Never used Tobacco e-Cigarette/Vaping Use: Never Used Second Hand Smoke Exposure: No Advance Directives: Yes Advance Directives on File: Yes Advance Directives Date on File: 01/22/21 service: No Current occupational status: retired Cognitive needs: No Hearing needs: No Vision needs: Yes (glasses) Physical Exam Vital Signs: Vital Signs: Last Vital Signs Temp 96.8 F 10/23/21 13:18 Pulse 74 10/23/21 17:40 Resp 16 10/23/21 13:18 BP 189/88 H 10/23/21 17:40 Pulse Ox 96 10/23/21 13:18 O2 Del Method 10/23/21 13:18 BMI result Body Mass Index 27.7 Appearance: Alert. Oriented X3. No acute distress. Eyes: PERRLA, No Nystagmus ENT: Pharynx normal. Oral Mucosa moist Neck: Normal inspection. Neck supple. CVS: Normal heart rate and rhythm. Pulses normal. Respiratory: No respiratory distress. Equal air entry bilateral, no wheezing/rales/rhonchi Abdomen: Soft and nontender. Bowel sounds are present, no mass palpable, no CVA tenderness Rectal; no stool no hemorrhoids palpable slight amount of blood on the finger Skin: Skin warm and dry. Normal skin color. Normal skin turgor. Extremities: No lower extremity edema. No calf tenderness Neuro: Oriented X 3. MDM - GI Bleed MDM Narrative Medical decision making narrative: Patient with bright red blood per rectum without any abdominal pain H&H stable vital stable orthostatics normal no active bleeding in the ER. Case discussed Dr. Herrera was patient gastroenteritis advised to follow up as outpatient likely patient has internal hemorrhoids Lab Data Attestation: I reviewed the patient's lab results. Result diagrams: 10/23/21 13:26 10/23/21 13:26 Labs: Lab Results 10/23/21 10/23/21 10/23/21 Range/Units 13:26 13:26 17:37 WBC 10.5 (4.8-10.8) X10*3/uL RBC 4.21 (4.20-5.50) X10*6/uL Hgb 12.1 (12.0-16.0) g/dl Hct 36.7 L (37.0-47.0) % MCV 87.2 (80.0-98.0) fL MCH 28.7 (27.0-33.0) pg MCHC 33.0 (31.0-35.0) g/dl RDW 12.8 (11.0-16.0) % Plt Count 210 (160-400) X10*3/uL MPV 10.0 (9.4-12.3) fL Immature Gran % (Auto) 0.4 (0.0-0.4) % Neut % (Auto) 69.3 (45-73) % Lymph % (Auto) 20.2 (20-40) % [place] % (Auto) 7.4 (2-11) % Eos % (Auto) 2.3 (0-4) % Baso % (Auto) 0.4 (0-2) % Lymph # (Auto) 2.1 (1.2-4.9) X10*3/uL [place] # (Auto) 0.8 (0.1-1.2) X10*3/uL Eos # (Auto) 0.2 (0.0-0.4) X10*3/uL Baso # (Auto) 0.0 (0.0-0.2) X10*3/uL Abs Immat Gran (auto) 0.04 H (0.00-0.03) X10*3/uL Absolute Neuts (auto) 7.3 (2.0-8.3) x10*3/uL Absolute Nucleated RBC 0.000 (0.0-0.012) X10*3/uL Nucleated RBC % (auto) 0.0 (0.0-0.2) /100WBC Sodium 143 (135-145) mmol/L Potassium 3.9 (3.3-5.1) mmol/L Chloride 108 (96-108) mmol/L Carbon Dioxide 24 (22-29) mmol/L Anion Gap 15 (12-20) BUN 19 H (9-16) mg/dL Creatinine 0.75 (0.5-1.4) mg/dL Estim Creat Clear Calc 66.2 Estimated GFR > 60 Random Glucose 82 (60-115) mg/dL Calcium 9.1 (8.4-10.2) mg/dL Stool Occult Blood POSITIVE (NEGATIVE) Discharge Plan Discharge Clinical Impression: Acute lower gastrointestinal bleeding Patient Disposition: Home, Self-Care Instructions: Rectal Bleeding (ED) Additional Instructions: Bleeding from the rectum likely from the hemorrhoids Report to the ER if bleeding gets worse Follow-up with Dr. Herrera as outpatient Prescriptions: No Action lorazepam 0.5 mg tablet See Rx Instructions .ROUTE .COMPLEX PRN (Reason: anxiety) 1 Days Qty: 2 0RF Rx Instructions: Take 1 tablet 30 minutes before procedure. May repeat another (2nd) dose after 15 to 20 minutes IF NEEDED raloxifene 60 mg tablet 60 mg PO DAILY 90 Days Qty: 90 3RF atorvastatin 10 mg tablet 10 mg PO DAILY 90 Days Qty: 90 3RF amlodipine 2.5 mg tablet 2.5 mg PO DAILY 90 Days Qty: 90 0RF cholecalciferol (vitamin D3) 25 mcg (1,000 unit) capsule 25 mcg PO DAILY 90 Days Qty: 90 3RF cyanocobalamin (vitamin B-12) [Vitamin B-12] 1,000 mcg tablet 1,000 mcg PO DAILY 90 Days Qty: 90 3RF ferrous sulfate 324 mg (65 mg iron) tablet,delayed release (DR/EC) 324 mg PO DAILY omeprazole 40 mg capsule,delayed release(DR/EC) 40 mg PO DAILY levofloxacin 250 mg tablet 250 mg PO DAILY 7 Days Qty: 7 0RF Interventions: ED Discharge Assessment Last Done: 10/23/21 18:16 Discharge Date/Time: 10/23/21 18:17
[2021-10-23 17:37] VITALS: BP 186/68; PULSE 63
[2021-10-23 17:39] VITALS: BP 173/81; PULSE 70
[2021-10-23 17:40] VITALS: BP 189/88; PULSE 74
[2021-10-23 17:47] LABS: OBS Int Ctl Valid YES; OBS1 POSITIVE (NEGATIVE)
== END 2021-10-23 18:17 | disposition home or self-care (01) ==
PROVIDERS: Emergency Provider Internal Medicine; PCP Internal Medicine
DX: K92.2 Gastrointestinal hemorrhage, unspecified (principal); I10 Essential (primary) hypertension; E78.00 Pure hypercholesterolemia, unspecified; D50.9 Iron deficiency anemia, unspecified; K22.70 Barrett's esophagus without dysplasia; Z79.899 Other long term (current) drug therapy; Z79.02 Long term (current) use of antithrombotics/antiplatelets
CPT/HCPCS: 36415; 80048; 82272; 85025; 99283

== ENCOUNTER 2021-10-29 12:28 | Inpatient (IN) | payer BC, SELFPAY ==
[2021-10-29 14:29] VITALS: BP 147/53; PULSE 84; RESP 16; TEMP 36.8; O2SAT 96; BMI 27.6
[2021-10-29 14:44] LABS: MANUAL DIFF FLAG NO
[2021-10-29 14:45] LABS: Basophils Absolute Auto 0.1 X10*3/uL (0.0-0.2); Basophils Percent Auto 0.5 % (0-2); Eosinophils Absolute Auto 0.2 X10*3/uL (0.0-0.4); Eosinophils Percent Auto 1.8 % (0-4); Hematocrit 30.5 % (37.0-47.0); Hemoglobin 9.9 g/dl (12.0-16.0); Imm Gran Abs Auto 0.05 X10*3/uL (0.00-0.03); Imm Gran Pct Auto 0.5 % (0.0-0.4); Lymphocytes Absolute Auto 2.2 X10*3/uL (1.2-4.9); Mean Corpuscular HGB Conc 32.5 g/dl (31.0-35.0); Mean Corpuscular Hemoglobin 28.8 pg (27.0-33.0); Mean Corpuscular Volume 88.7 fL (80.0-98.0); Monocytes Absolute Auto 0.9 X10*3/uL (0.1-1.2); Monocytes Percent Auto 8.2 % (2-11); Neutrophils Absolute Auto 7.5 x10*3/uL (2.0-8.3); Platelet Count 222 X10*3/uL (160-400); Red Blood Count 3.44 X10*6/uL (4.20-5.50); Red Cell Distribution Width 13.1 % (11.0-16.0); White Blood Count 10.9 X10*3/uL (4.8-10.8)
[2021-10-29 15:06] LABS: COVID-19 Test Negative (Negative); IDNOW Serial# 16C4AD1C
[2021-10-29 15:09] LABS: Alanine Aminotransferase 14 U/L (0-31); Alkaline Phosphatase 43 U/L (39-117); Anion Gap 13 (12-20); Aspartate Amino Transferase 20 U/L (5-31); Bilirubin Direct < 0.2 mg/dL (0.0-0.5); Bilirubin Total 0.4 mg/dL (0.0-1.0); Blood Urea Nitrogen 20 mg/dL (9-16); Calcium 8.9 mg/dL (8.4-10.2); Carbon Dioxide 25 mmol/L (22-29); Chloride 108 mmol/L (96-108); Creatinine Clr Calc Pharmacy 62.6; Estimated Glomerular Filt Rate > 60; Glucose Random 81 mg/dL (60-115); Lipase 29 U/L (8-78); Potassium 4.1 mmol/L (3.3-5.1); Sodium 142 mmol/L (135-145); Total Protein 6.5 g/dL (6.5-8.0)
[2021-10-29 20:02] VITALS: BP 139/70; PULSE 92; RESP 18; TEMP 36.1; O2SAT 97
[2021-10-29 20:35] LABS: Appearance Urine CLEAR; Color Urine YELLOW; Glucose Urine UA NEG (NEG); Leukocyte Esterase Urine 1+ (NEG); Nitrite Urine NEG (NEG); PH 5.5 (5.0-8.0); UACC Culture Trigger YES; Urine Blood TRACE (NEG); Urine Ketones NEG (NEG); Urine Protein NEG (NEG-TRACE)
[2021-10-29 20:42] LABS: Squamous Epithelial Cell Urine 1+ /LPF
--- NOTE | 2021-10-29 21:08 | ED.GIBLEED ---
HPI - GI Bleed General Chief complaint: General Medical Stated complaint: Blood in stool Time Seen by Provider: 10/29/21 21:03 Source: patient and old records reviewed Mode of arrival: ambulatory Limitations: no limitations History of Present Illness HPI Narrative: 76 yo female hx of anemia, HLD, PUD with hx of prox gastric ulcer/HH/romero's esophagus last EGD 02/2021 not on blood thinners, NSAIDs, or ASA here with c/o darkening stool. Patient seen 10/23 with brb per rectum dx with internal hemorrhoids at that time hemoglobin 12.1. She notes since then she has tried to call her PCP and GI doctor. She is taking her Fe. She has had intermittent bouts of upper abdominal pain and now her stool is more dark and maroon. MD complaint: melena and gross hematochezia Onset (ago): day(s) (6+) Pain Consistency: intermittent Severity: mild Relieving factors: none Exacerbating factors: eating Context: history of GI bleed Associated symptoms: abdominal pain, nausea and loss of appetite Treatments Prior to Arrival: none Related Data Home Medications Medication Instructions Recorded Confirmed ferrous sulfate 324 mg (65 mg 324 mg PO DAILY 08/10/21 10/29/21 iron) tablet,delayed release omeprazole 40 mg capsule,delayed 40 mg PO DAILY 08/10/21 10/29/21 release Previous Rx's Medication Instructions Recorded cholecalciferol (vitamin D3) 25 25 mcg PO DAILY 90 days #90 caps 09/22/20 mcg (1,000 unit) capsule cyanocobalamin (vitamin B-12) 1,000 mcg PO DAILY 90 days #90 tabs 09/22/20 1,000 mcg tablet (Vitamin B-12) atorvastatin 10 mg tablet 10 mg PO DAILY 90 days #90 tabs 09/04/21 raloxifene 60 mg tablet 60 mg PO DAILY 90 days #90 tabs 09/04/21 amlodipine 2.5 mg tablet 2.5 mg PO DAILY 90 days #90 tabs 09/23/21 Allergies Allergy/AdvReac Type Severity Reaction Status Date / Time enflurane [ENFLURANE] Allergy Severe Per Verified 10/29/21 14:33 Patient Liver toxicity piperacillin [Zosyn] Allergy Unknown Unknown Verified 10/29/21 14:33 tazobactam [Zosyn] Allergy Unknown Unknown Verified 08/08/22 14:33 Review of Systems Review of Systems: Constitutional : No Weight loss, No Fever, No Chills ENT/Mouth : No sore throat, No Rhinorrhea Eyes: No Swelling, No Redness Cardiovascular : No Chest Pain, No SOB, NoEdema Respiratory : No Cough, No Sputum, No Wheezing Gastrointestinal : Positive Nausea, no Vomiting, positive Diarrhea, positive abdominal Pain, pos Hematochezia, pos Melena Genitourinary : No Dysuria, No Urinary Frequency, No Hematuria, No Urgency Musculoskeletal : No joint pain, No Myalgias, No Joint Swelling Skin : No Skin Lesions, No rash Neuro : No Weakness, No Numbness, No Dizziness, No Headache Psych : No Anxiety/Panic, No Depression Heme/Lymph: No Bruising, No Lymphadenopathy Endocrine : No Polyuria, No Polydipsia All other systems reviewed and are negative. [facility] Past Medical History Attestation statement: The following information was validated with the patient. Source: old records reviewed Medical History Anemia Romero's esophagus Benign essential hypertension Cardiac murmur Gastric ulcer Hiatal hernia History of blood transfusion Osteopenia Overweight (BMI 25.0-29.9) Primary osteoarthritis of hand Pure hypercholesterolemia Vitamin B12 deficiency Vitamin D deficiency Surgical History History of appendectomy History of esophagogastroduodenoscopy (EGD) History of hysterectomy Family History Family History Father Hypertension Mother Stroke Social History Social History Household Members: None Housing: House Do you presently have visiting nurse or other home services: No Alcohol intake: never Patient Tobacco Use Status: Never used Tobacco e-Cigarette/Vaping Use: Never Used Second Hand Smoke Exposure: No Advance Directives: Yes Advance Directives on File: Yes Advance Directives Date on File: 01/22/21 service: No Current occupational status: retired Cognitive needs: No Hearing needs: No Vision needs: Yes (glasses) Physical Exam Vital Signs: Vital Signs: Last Vital Signs Temp 98.2 F 10/29/21 22:00 Pulse 67 10/29/21 22:00 Resp 16 10/29/21 22:00 BP 141/54 H 10/29/21 22:00 Pulse Ox 98 10/29/21 22:00 O2 Del Method 10/29/21 22:00 BMI result Body Mass Index 27.6 Appearance: Alert. Oriented X3. No acute distress. Eyes: Pupils equal, round and reactive to light. ENT: Pharynx normal. Neck: Normal inspection. Neck supple. CVS: Normal heart rate and rhythm. Pulses normal. Respiratory: No respiratory distress. Breath sounds normal. Abdomen: Soft and nontender. Rectal: dark melanic stool on rectal exam Skin: Skin warm and dry. Normal skin color. Normal skin turgor. Extremities: No lower extremity edema. No calf ttp Neuro: Oriented X 3. No motor deficit. No sensory deficit. Course Course Course Narrative: VS stable, started on protonix gtt MDM - GI Bleed MDM Narrative Medical decision making narrative: 76 yo female hx of anemia, HLD, PUD with hx of prox gastric ulcer/HH/romero's esophagus last EGD 02/2021 not on blood thinners, NSAIDs, or ASA here with c/o GI symptoms for 6+ days now with dark stools. She has had about a 3 point drop in hemoglobin this is similar to prior issues back in 2020 requiring 2 UPBRCs and EGD. At this time labs, IVF, protonix gtt, EKG and admission for GI consult in AM. She has stable VS and her abdominal exam is benign and she has no pain to palpation on exam. Lab Data Result diagrams: 10/29/21 14:38 10/29/21 14:38 Labs: Lab Results 10/29/21 10/29/21 10/29/21 Range/Units 14:38 14:38 14:38 WBC 10.9 H (4.8-10.8) X10*3/uL RBC 3.44 L (4.20-5.50) X10*6/uL Hgb 9.9 L (12.0-16.0) g/dl Hct 30.5 L (37.0-47.0) % MCV 88.7 (80.0-98.0) fL MCH 28.8 (27.0-33.0) pg MCHC 32.5 (31.0-35.0) g/dl RDW 13.1 (11.0-16.0) % Plt Count 222 (160-400) X10*3/uL MPV 10.0 (9.4-12.3) fL Immature Gran % (Auto) 0.5 H (0.0-0.4) % Neut % (Auto) 69.0 (45-73) % Lymph % (Auto) 20.0 (20-40) % [place] % (Auto) 8.2 (2-11) % Eos % (Auto) 1.8 (0-4) % Baso % (Auto) 0.5 (0-2) % Lymph # (Auto) 2.2 (1.2-4.9) X10*3/uL [place] # (Auto) 0.9 (0.1-1.2) X10*3/uL Eos # (Auto) 0.2 (0.0-0.4) X10*3/uL Baso # (Auto) 0.1 (0.0-0.2) X10*3/uL Abs Immat Gran (auto) 0.05 H (0.00-0.03) X10*3/uL Absolute Neuts (auto) 7.5 (2.0-8.3) x10*3/uL Absolute Nucleated RBC 0.000 (0.0-0.012) X10*3/uL Nucleated RBC % (auto) 0.0 (0.0-0.2) /100WBC Sodium 142 (135-145) mmol/L Potassium 4.1 (3.3-5.1) mmol/L Chloride 108 (96-108) mmol/L Carbon Dioxide 25 (22-29) mmol/L Anion Gap 13 (12-20) BUN 20 H (9-16) mg/dL Creatinine 0.79 (0.5-1.4) mg/dL Estim Creat Clear Calc 62.6 Estimated GFR > 60 Random Glucose 81 (60-115) mg/dL Calcium 8.9 (8.4-10.2) mg/dL Total Bilirubin 0.4 (0.0-1.0) mg/dL Direct Bilirubin < 0.2 (0.0-0.5) mg/dL AST 20 (5-31) U/L ALT 14 (0-31) U/L Alkaline Phosphatase 43 (39-117) U/L Total Protein 6.5 (6.5-8.0) g/dL Albumin 4.0 (3.5-5.0) g/dL Lipase 29 (8-78) U/L Urine Color Urine Appearance Urine pH (5.0-8.0) Ur Specific [place] (1.005-1.025) Urine Protein (NEG-TRACE) MG/DL Urine Glucose (UA) (NEG) MG/DL Urine Ketones (NEG) MG/DL Urine Blood (NEG) Urine Nitrite (NEG) Ur Leukocyte Esterase (NEG) Urine RBC (0) /HPF Urine WBC (0-4) /HPF Ur Squamous Epith Cells /LPF Urine Bacteria /LPF Stool Occult Blood (NEGATIVE) COVID-19 (TIARA) Negative (Negative) COVID-19 Clin Com See Note 10/29/21 10/29/21 Range/Units 20:22 21:30 WBC (4.8-10.8) X10*3/uL RBC (4.20-5.50) X10*6/uL Hgb (12.0-16.0) g/dl Hct (37.0-47.0) % MCV (80.0-98.0) fL MCH (27.0-33.0) pg MCHC (31.0-35.0) g/dl RDW (11.0-16.0) % Plt Count (160-400) X10*3/uL MPV (9.4-12.3) fL Immature Gran % (Auto) (0.0-0.4) % Neut % (Auto) (45-73) % Lymph % (Auto) (20-40) % [place] % (Auto) (2-11) % Eos % (Auto) (0-4) % Baso % (Auto) (0-2) % Lymph # (Auto) (1.2-4.9) X10*3/uL [place] # (Auto) (0.1-1.2) X10*3/uL Eos # (Auto) (0.0-0.4) X10*3/uL Baso # (Auto) (0.0-0.2) X10*3/uL Abs Immat Gran (auto) (0.00-0.03) X10*3/uL Absolute Neuts (auto) (2.0-8.3) x10*3/uL Absolute Nucleated RBC (0.0-0.012) X10*3/uL Nucleated RBC % (auto) (0.0-0.2) /100WBC Sodium (135-145) mmol/L Potassium (3.3-5.1) mmol/L Chloride (96-108) mmol/L Carbon Dioxide (22-29) mmol/L Anion Gap (12-20) BUN (9-16) mg/dL Creatinine (0.5-1.4) mg/dL Estim Creat Clear Calc Estimated GFR Random Glucose (60-115) mg/dL Calcium (8.4-10.2) mg/dL Total Bilirubin (0.0-1.0) mg/dL Direct Bilirubin (0.0-0.5) mg/dL AST (5-31) U/L ALT (0-31) U/L Alkaline Phosphatase (39-117) U/L Total Protein (6.5-8.0) g/dL Albumin (3.5-5.0) g/dL Lipase (8-78) U/L Urine Color YELLOW Urine Appearance CLEAR Urine pH 5.5 (5.0-8.0) Ur Specific [place] 1.020 (1.005-1.025) Urine Protein NEG (NEG-TRACE) MG/DL Urine Glucose (UA) NEG (NEG) MG/DL Urine Ketones NEG (NEG) MG/DL Urine Blood TRACE (NEG) Urine Nitrite NEG (NEG) Ur Leukocyte Esterase 1+ H (NEG) Urine RBC 1-4 (0) /HPF Urine WBC 10-14 H (0-4) /HPF Ur Squamous Epith Cells 1+ /LPF Urine Bacteria NONE /LPF Stool Occult Blood POSITIVE (NEGATIVE) COVID-19 (TIARA) (Negative) COVID-19 Clin Com ECG Data Attestation: I personally reviewed and interpreted this ECG as follows: ECG interpretation date: 10/29/21 ECG interpretation time: 22:11 Interpretation: Rate: 61 Rhythm: NSR [place]: LVH , normal Normal P waves. Normal DAVID. Normal QRS complex. ST T wave : normal no SUMAN qTC: normal prior studies: no acute ischemia The study has been interpreted contemporaneously by me. . Discharge Plan Discharge Clinical Impression: Acute blood loss anemia, Acute GI bleeding Patient Disposition: Admitted As Inpatient
[2021-10-29 21:28] VITALS: BP 136/60; PULSE 62; RESP 16; TEMP 36.6; O2SAT 98
--- NOTE | 2021-10-29 21:32 | ECG_ITS ---
Test Reason : RECTAL BLEEDING Blood Pressure : / mmHG Vent. Rate : 061 BPM Atrial Rate : 061 BPM P-R Int : 144 ms QRS Dur : 096 ms QT Int : 484 ms P-R-T Axes : 047 024 031 degrees QTc Int : 487 ms Sinus rhythm with Premature atrial complexes Left ventricular hypertrophy with repolarization abnormality ( R in aVL , Sokolow-Gtz ) Abnormal ECG When compared with ECG of 29-MAR-2021 15:53, Premature atrial complexes are now Present Minimal criteria for Septal infarct are no longer Present Referred By: Dee Peterson Electronically Signed By:DAY GOODEN
[2021-10-29 21:45] LABS: OBS Int Ctl Valid YES; OBS1 POSITIVE (NEGATIVE)
--- NOTE | 2021-10-29 21:49 | PHA.MEDREC ---
Pharmacy Consult ? Medication Reconciliation Pharmacy has completed the medication reconciliation.
[2021-10-29] MEDS: Lactated Ringers 1,000 ML 999 ML IV (21:59)
[2021-10-29 22:00] VITALS: BP 141/54; PULSE 67; RESP 16; TEMP 36.8; O2SAT 98
[2021-10-29] MEDS: Pantoprazole Sodium 40 MG/10 ML VIAL IVPUSH (22:01)
[2021-10-29] MEDS: Pantoprazole Sodium 80 MG in 0.9 % Sodium Chloride 80 ML 10 MG IV (22:03)
--- NOTE | 2021-10-29 22:14 | P.HPHOSP_ITS ---
History of Present Illness Date of Service: 10/29/21 Chief Complaint: dark stools this is a pleasant 76-year-old female with past medical history of Sevilla's esophagus, HTN, history of GI bleed with gastric ulcer, history of hiatal hernia, HLD, vitamin B12 and vitamin-D deficiency, iron deficiency anemia, presents the hospital with complaints of dark tarry stools. Patient reports that her symptoms started about a week ago with a bright blood BM, she came to the hospital, was told that she probably has internal hemorrhoids, her hemoglobin was stable and therefore she was sent home. She comes back stating that she continued to have dark tarry stool with every BM ever since. She reports no bright blood with stools at this time. She reports dizziness, with no other symptoms. She states that her abdomen is overall uncomfortable but has no pain she has no nausea or vomiting, her appetite is the same. She denies taking any aspirin or NSAIDs. Denies any chest pain, no palpitations, no diarrhea Up until today developed 2 episodes while in the ED, no urinary symptoms and no lower extremity edema. on arrival to the ED patient hemodynamically stable with no significant abnormal vitals Labs are significant for WBC count of 10.9, hemoglobin of 9.9 which dropped from 12.1 on 10/23, hematocrit 30.5, BUN of 20, UA positive for leukocyte Estrace and WBC patient will be admitted for further management Review of Systems Review of Systems: Yes all other systems are reviewed and are negative [facility] Medical History Anemia Sevilla's esophagus Benign essential hypertension Cardiac murmur Gastric ulcer Hiatal hernia History of blood transfusion Osteopenia Overweight (BMI 25.0-29.9) Primary osteoarthritis of hand Pure hypercholesterolemia Vitamin B12 deficiency Vitamin D deficiency Family History Father Hypertension Mother Stroke Surgical History History of appendectomy History of esophagogastroduodenoscopy (EGD) History of hysterectomy Social History Household Members: None Housing: House Do you presently have visiting nurse or other home services: No Alcohol intake: never Patient Tobacco Use Status: Never used Tobacco e-Cigarette/Vaping Use: Never Used Second Hand Smoke Exposure: No Advance Directives: Yes Advance Directives on File: Yes Advance Directives Date on File: 01/22/21 service: No Current occupational status: retired Cognitive needs: No Hearing needs: No Vision needs: Yes (glasses) Meds Allergies Allergy/AdvReac Type Severity Reaction Status Date / Time enflurane [ENFLURANE] Allergy Severe Per Verified 10/29/21 14:33 Patient Liver toxicity piperacillin [Zosyn] Allergy Unknown Unknown Verified 10/29/21 14:33 tazobactam [Zosyn] Allergy Unknown Unknown Verified 10/29/21 14:33 Active Medications: Current Medications Lactated Ringer's (Lr) 1,000 mls @ 999 mls/hr IV .Q1H1M [facility] Stop: 10/29/21 22:15 Last Admin: 10/29/21 21:59 Dose: 999 mls/hr Pantoprazole Sodium 80 mg/ (Sodium Chloride) 100 mls @ 10 mls/hr IV .Q10H [facility] Last Admin: 10/29/21 22:03 Dose: 8 mg/hr, 10 mls/hr Pharmacy Consult (Consult Rx Perform Med Rec) 1 each MISCELLANE ONCE PRN PRN Reason: Consult order Home Medications Medication Instructions Recorded Confirmed Last Taken Type ferrous sulfate 324 mg (65 mg 324 mg PO DAILY 08/10/21 10/29/21 10/29/21 History iron) tablet,delayed release omeprazole 40 mg capsule,delayed 40 mg PO DAILY 08/10/21 10/29/21 10/29/21 History release Physical Exam Vital Signs and Narrative: Vital Signs: Last Vital Signs Temp 98.2 F 10/29/21 22:00 Pulse 67 10/29/21 22:00 Resp 16 10/29/21 22:00 BP 141/54 H 10/29/21 22:00 Pulse Ox 98 10/29/21 22:00 O2 Del Method 10/29/21 22:00 BMI result Body Mass Index 27.6 Const: General: cooperative and no acute distress Orientation/conscious ness: patient oriented x3 Eyes: General: appearance normal, both eyes and all related structures Resp: Effort & Inspection: normal respiratory effort, able to speak in complete sentences and abnormal respiratory pattern Auscultation: clear to auscultation bilaterally Cardio: Rate: regular rate Rhythm: regular rhythm GI: Other: abdomen is soft, nontender, no rebound or guarding Palpation (GI): Soft to palpation Auscultation: normal bowel sounds Skin: General skin exam: no rashes or lesions noted Neuro: General: patient oriented x3 Cognition (Neuro): normal cognition Extrem: General: Yes normal to inspection and Yes no pedal edema Results Labs CBC and Chem 7: 10/30/21 04:48 10/30/21 04:48 Labs: Laboratory Results - last 24 hr 10/29/21 10/29/21 10/29/21 14:38 14:38 14:38 MCV 88.7 MCH 28.8 MCHC 32.5 RDW 13.1 Plt Count 222 MPV 10.0 Immature Gran % (Auto) 0.5 H Neut % (Auto) 69.0 Lymph % (Auto) 20.0 [place] % (Auto) 8.2 Eos % (Auto) 1.8 Baso % (Auto) 0.5 Lymph # (Auto) 2.2 [place] # (Auto) 0.9 Eos # (Auto) 0.2 Baso # (Auto) 0.1 Abs Immat Gran (auto) 0.05 H Absolute Neuts (auto) 7.5 Absolute Nucleated RBC 0.000 Nucleated RBC % (auto) 0.0 Anion Gap 13 Estim Creat Clear Calc 62.6 Estimated GFR > 60 Random Glucose 81 Calcium 8.9 Total Bilirubin 0.4 Direct Bilirubin < 0.2 AST 20 ALT 14 Alkaline Phosphatase 43 Total Protein 6.5 Albumin 4.0 Lipase 29 Urine Color Urine Appearance Urine pH Ur Specific [place] Urine Protein Urine Glucose (UA) Urine Ketones Urine Blood Urine Nitrite Ur Leukocyte Esterase Urine RBC Urine WBC Ur Squamous Epith Cells Urine Bacteria Stool Occult Blood COVID-19 (TIARA) Negative COVID-19 Clin Com See Note 10/29/21 10/29/21 20:22 21:30 MCV MCH MCHC RDW Plt Count MPV Immature Gran % (Auto) Neut % (Auto) Lymph % (Auto) [place] % (Auto) Eos % (Auto) Baso % (Auto) Lymph # (Auto) [place] # (Auto) Eos # (Auto) Baso # (Auto) Abs Immat Gran (auto) Absolute Neuts (auto) Absolute Nucleated RBC Nucleated RBC % (auto) Anion Gap Estim Creat Clear Calc Estimated GFR Random Glucose Calcium Total Bilirubin Direct Bilirubin AST ALT Alkaline Phosphatase Total Protein Albumin Lipase Urine Color YELLOW Urine Appearance CLEAR Urine pH 5.5 Ur Specific [place] 1.020 Urine Protein NEG Urine Glucose (UA) NEG Urine Ketones NEG Urine Blood TRACE Urine Nitrite NEG Ur Leukocyte Esterase 1+ H Urine RBC 1-4 Urine WBC 10-14 H Ur Squamous Epith Cells 1+ Urine Bacteria NONE Stool Occult Blood POSITIVE COVID-19 (TIARA) COVID-19 Clin Com Assessment and Plan (1) Acute blood loss anemia: Status: Acute (2) Acute GI bleeding: Status: Acute Plan this is a 76-year-old female with past medical history of GI bleed in 2020 who presents to the hospital with complaints of tarry stools # acute GI bleed - likely upper GI, patient has history of gastric ulcers in 2020 with similar presentation - no use of NSAIDs or aspirin - started on pantoprazole IV- continue - GI consulted - hemodynamically stable # acute blood loss anemia - secondary to above - drop of close to 3 units in 1 week - patient at this time does not need transfusion as her hemoglobin is >7 with no history of cardiac disease - continue to monitor CBC with a threshold to transfuse above hemoglobin of 7 # hypertension - stable - continue amlodipine DVT prophylaxis: SCDs in the setting of GI bleed given patient's continuous blood loss over the past week, anemia, patient will require minimal 2 night hospital stay for further evaluation by GI and monitoring Quality Stroke Does the patient have a stroke diagnosis?: No VTE Prior VTE?: No VTE Risk Level:: Medical - moderate - high VTE Device Contraindication: N/A - Device Ordered VTE Drug Contraindication: Treatment Not Indicated
[2021-10-30] VITALS (12 sets, daily range): BP systolic 90–143; BP diastolic 44–74; PULSE 62–108; RESP 16–18; TEMP 36.1–37; O2SAT 95–98
[2021-10-30 04:59] LABS: MANUAL DIFF FLAG NO
[2021-10-30 05:00] LABS: Basophils Percent Auto 0.4 % (0-2); Eosinophils Absolute Auto 0.2 X10*3/uL (0.0-0.4); Eosinophils Percent Auto 2.4 % (0-4); Hematocrit 24.7 % (37.0-47.0); Imm Gran Abs Auto 0.01 X10*3/uL (0.00-0.03); Imm Gran Pct Auto 0.1 % (0.0-0.4); Lymphocytes Absolute Auto 2.2 X10*3/uL (1.2-4.9); Lymphocytes Percent Auto 24.3 % (20-40); Mean Corpuscular HGB Conc 32.4 g/dl (31.0-35.0); Mean Corpuscular Hemoglobin 28.9 pg (27.0-33.0); Mean Corpuscular Volume 89.2 fL (80.0-98.0); Monocytes Absolute Auto 0.6 X10*3/uL (0.1-1.2); Monocytes Percent Auto 6.6 % (2-11); Neutrophils Absolute Auto 6.1 x10*3/uL (2.0-8.3); Neutrophils Percent Auto 66.2 % (45-73); Platelet Count 179 X10*3/uL (160-400); Red Blood Count 2.77 X10*6/uL (4.20-5.50); Red Cell Distribution Width 13.2 % (11.0-16.0); White Blood Count 9.2 X10*3/uL (4.8-10.8)
[2021-10-30 05:19] LABS: Anion Gap 13 (12-20); Blood Urea Nitrogen 23 mg/dL (9-16); Calcium 8.3 mg/dL (8.4-10.2); Carbon Dioxide 23 mmol/L (22-29); Chloride 112 mmol/L (96-108); Creatinine Clr Calc Pharmacy 62.6; Estimated Glomerular Filt Rate > 60; Glucose Random 96 mg/dL (60-115); Potassium 3.6 mmol/L (3.3-5.1); Sodium 144 mmol/L (135-145)
[2021-10-30] MEDS: cefTRIAXone sodium 1 GM in 0.9 % Sodium Chloride 50 ML IV (08:22)
[2021-10-30] MEDS: Pantoprazole Sodium 80 MG in 0.9 % Sodium Chloride 80 ML 10 MG IV (08:22)
[2021-10-30] MEDS: amLODIPine Besylate 2.5 MG TABLET PO (08:51)
[2021-10-30] MEDS: Atorvastatin Calcium 10 MG TABLET PO (08:51)
[2021-10-30] MEDS: Cholecalciferol (Vitamin D3) 25 MCG TABLET PO (08:51)
[2021-10-30] MEDS: Ferrous Sulfate 324 MG TABLET.DR PO (08:51)
[2021-10-30] MEDS: 0.9 % Sodium Chloride Flush 3 ML SYRINGE IVFLUSH ×3 (08:51→22:13)
[2021-10-30] MEDS: Cyanocobalamin (Vitamin B-12) 1,000 MCG TABLET 1000 MCG PO (08:51)
--- NOTE | 2021-10-30 09:22 | MHC.CM.PN ---
No IMM needed Patient reports she lives with her partner and is independent at home and community, uses a walking stick when she goes for walks but does not have DME at home and does not receive home services. Patient reports she still drives. HCP on file, PCP Jane Motley'noemy x4 ([facility]). Her partner, Ed, will transprt her home. D/C Plan: Home (self-care).
--- NOTE | 2021-10-30 09:45 | PM.EVENT ---
Event Note Date of Service: 10/30/21 Event Note: GI consult dictated EGD later today for further evaluation of GI bleeding. Pt aware of risks and benefits and agrees to proceed.
--- NOTE | 2021-10-30 09:48 | MHC.SHP ---
Pre-Procedural Eval Section A Date of Service: 10/30/21 The patient is an INPATIENT: Yes Changes since office visit: No Cold of Flu in the past 2 weeks, No New Medical Problems, No Changes in Medication and No Patient answered all questions The History & Physical has been completed within 30 days and I have reviewed it.: Yes Section B Chief Complaint: GI bleed Details of Present Illness: see H&P no changes Allergies: Allergies Allergy/AdvReac Type Severity Reaction Status Date / Time enflurane [ENFLURANE] Allergy Severe Per Verified 10/29/21 14:33 Patient Liver toxicity piperacillin [Zosyn] Allergy Unknown Unknown Verified 10/29/21 14:33 tazobactam [Zosyn] Allergy Unknown Unknown Verified 10/29/21 14:33 Plan I have reviewed the history and physical and performed a pertinent physical examination on my patient. No changes have occurred unless specified.
--- NOTE | 2021-10-30 11:22 | HO.PM.IMPN ---
Subjective Subjective Date of Service: 10/30/21 Interval History: f/u on GIB, acute blood loss anemia Interval history: No active bleed, hemodynamically stable H/H slightly lower from yestreday Review of Systems melana no sob no chest pain no dizziness Physical Exam Vital Signs: Vital Signs: Last Vital Signs Temp 97 F 10/30/21 08:00 Pulse 66 10/30/21 08:00 Resp 18 10/30/21 08:00 BP 117/59 L 10/30/21 08:00 Pulse Ox 97 10/30/21 08:00 O2 Del Method 10/30/21 08:00 BMI result Body Mass Index 27.6 Const: Other: General: AO X 3, no acute distress Resp: CTA bilateral CVS: S1,S2,RRR GI: +BS, NT, no distention, recal exam deffered Skin: No rash Neuro: motor grossly intact Psych: appropriate affect Objective Data Active Medications Acetaminophen (Acetaminophen 325 Mg Tablet) 650 mg PO Q6H PRN PRN Reason: Pain, Mild (Pain Scale 1-3) Amlodipine Besylate (Amlodipine Besylate 2.5 Mg Tablet) 2.5 mg PO DAILY [facility]; Protocol Last Admin: 10/30/21 08:51 Dose: 2.5 mg Documented By: FRANCISCO Atorvastatin Calcium (Atorvastatin Calcium 10 Mg Tablet) 10 mg PO DAILY [facility] Last Admin: 10/30/21 08:51 Dose: 10 mg Documented By: FRANCISCO Cyanocobalamin (Cyanocobalamin (Vitamin B-12) 1,000 Mcg Tablet) 1,000 mcg PO DAILY [facility] Last Admin: 10/30/21 08:51 Dose: 1,000 mcg Documented By: FRANCISCO Ferrous Sulfate (Ferrous Sulfate 324 Mg Tablet.Dr) 324 mg PO DAILY [facility] Last Admin: 10/30/21 08:51 Dose: 324 mg Documented By: FRANCISCO Pantoprazole Sodium 80 mg/ (Sodium Chloride) 100 mls @ 10 mls/hr IV .Q10H [facility] Last Admin: 10/30/21 08:22 Dose: 8 mg/hr, 10 mls/hr Documented By: FRANCISCO Ceftriaxone Sodium 1 gm/ (Sodium Chloride) 50 mls @ 100 mls/hr IV Q24H [facility] Last Infusion: 10/30/21 08:55 Dose: 0 mls/hr Documented By: FRANCISCO Ondansetron HCl (Ondansetron Hcl 4 Mg/2 Ml Vial) 4 mg IVPUSH Q8H PRN PRN Reason: Nausea and Vomiting Pharmacy Consult (Consult Rx Perform Med Rec) 1 each MISCELLANE ONCE PRN PRN Reason: Consult order Sodium Chloride (0.9 % Sodium Chloride Flush 3 Ml Syringe) 3 ml IVFLUSH QSHIFT [facility] Last Admin: 10/30/21 08:51 Dose: 3 ml Documented By: FRANCISCO Vitamin D (Cholecalciferol (Vitamin D3) 25 Mcg Tablet) 25 mcg PO DAILY [facility] Last Admin: 10/30/21 08:51 Dose: 25 mcg Documented By: FRANCISCO Labs CBC & Chem 7: 10/30/21 04:48 10/30/21 04:48 Labs: Laboratory Results - last 24 hr 10/29/21 10/29/21 10/29/21 14:38 14:38 14:38 MCV 88.7 MCH 28.8 MCHC 32.5 RDW 13.1 Plt Count 222 MPV 10.0 Immature Gran % (Auto) 0.5 H Neut % (Auto) 69.0 Lymph % (Auto) 20.0 [place] % (Auto) 8.2 Eos % (Auto) 1.8 Baso % (Auto) 0.5 Lymph # (Auto) 2.2 [place] # (Auto) 0.9 Eos # (Auto) 0.2 Baso # (Auto) 0.1 Abs Immat Gran (auto) 0.05 H Absolute Neuts (auto) 7.5 Absolute Nucleated RBC 0.000 Nucleated RBC % (auto) 0.0 Anion Gap 13 Estim Creat Clear Calc 62.6 Estimated GFR > 60 Random Glucose 81 Calcium 8.9 Total Bilirubin 0.4 Direct Bilirubin < 0.2 AST 20 ALT 14 Alkaline Phosphatase 43 Total Protein 6.5 Albumin 4.0 Lipase 29 Urine Color Urine Appearance Urine pH Ur Specific [place] Urine Protein Urine Glucose (UA) Urine Ketones Urine Blood Urine Nitrite Ur Leukocyte Esterase Urine RBC Urine WBC Ur Squamous Epith Cells Urine Bacteria Stool Occult Blood COVID-19 ([facility]ARA) Negative COVID-19 Clin Com See Note Blood Type Antibody Screen 10/29/21 10/29/21 10/29/21 20:22 21:30 21:52 MCV MCH MCHC RDW Plt Count MPV Immature Gran % (Auto) Neut % (Auto) Lymph % (Auto) [place] % (Auto) Eos % (Auto) Baso % (Auto) Lymph # (Auto) [place] # (Auto) Eos # (Auto) Baso # (Auto) Abs Immat Gran (auto) Absolute Neuts (auto) Absolute Nucleated RBC Nucleated RBC % (auto) Anion Gap Estim Creat Clear Calc Estimated GFR Random Glucose Calcium Total Bilirubin Direct Bilirubin AST ALT Alkaline Phosphatase Total Protein Albumin Lipase Urine Color YELLOW Urine Appearance CLEAR Urine pH 5.5 Ur Specific [place] 1.020 Urine Protein NEG Urine Glucose (UA) NEG Urine Ketones NEG Urine Blood TRACE Urine Nitrite NEG Ur Leukocyte Esterase 1+ H Urine RBC 1-4 Urine WBC 10-14 H Ur Squamous Epith Cells 1+ Urine Bacteria NONE Stool Occult Blood POSITIVE COVID-19 (TIARA) COVID-19 Clin Com Blood Type A Positive Antibody Screen NEGATIVE 10/30/21 10/30/21 04:48 04:48 MCV 89.2 MCH 28.9 MCHC 32.4 RDW 13.2 Plt Count 179 MPV 10.0 Immature Gran % (Auto) 0.1 Neut % (Auto) 66.2 Lymph % (Auto) 24.3 [place] % (Auto) 6.6 Eos % (Auto) 2.4 Baso % (Auto) 0.4 Lymph # (Auto) 2.2 [place] # (Auto) 0.6 Eos # (Auto) 0.2 Baso # (Auto) 0.0 Abs Immat Gran (auto) 0.01 Absolute Neuts (auto) 6.1 Absolute Nucleated RBC 0.000 Nucleated RBC % (auto) 0.0 Anion Gap 13 Estim Creat Clear Calc 62.6 Estimated GFR > 60 Random Glucose 96 Calcium 8.3 L D Total Bilirubin Direct Bilirubin AST ALT Alkaline Phosphatase Total Protein Albumin Lipase Urine Color Urine Appearance Urine pH Ur Specific [place] Urine Protein Urine Glucose (UA) Urine Ketones Urine Blood Urine Nitrite Ur Leukocyte Esterase Urine RBC Urine WBC Ur Squamous Epith Cells Urine Bacteria Stool Occult Blood COVID-19 ([facility]ARA) COVID-19 Clin Com Blood Type Antibody Screen Microbiology Microbiology Results: Microbiology 10/29/21 20:22 Urine Culture - Preliminary Urine clean catch - Urine cabrera top Culture too young to evaluate. Assessment and Plan (1) Acute GI bleeding: Status: Acute (2) Acute blood loss anemia: Status: Acute Plan 76-year-old female with past medical history of GI bleed in 2020 who presents to the hospital with complaints of tarry stools #? acute GI bleed -? likely upper GI, patient has history of gastric ulcers in 2020 with similar presentation -? no use of NSAIDs or aspirin -? on pantoprazole IV-? continue -? Dr. Cantrell will do EGD later today -hold transfusion and follow blood coutn #? acute blood loss anemia -? secondary to above -? drop of close to 3 units in 1 week -? patient at this time does not need transfusion as her hemoglobin is >7? with no history of cardiac disease -? continue to monitor CBC with a threshold to transfuse? above hemoglobin of 7 # hypertension -? stable -? continue amlodipine ?DVT prophylaxis:? SCDs in the setting of GI bleed ?Need for inaptient: Acute GIB with signficant anemia, needs work up to locate source of bleed Quality Stroke Does the patient have a stroke diagnosis?: No VTE Prior VTE?: No VTE Risk Level:: Medical - moderate - high VTE Device Contraindication: N/A - Device Ordered VTE Drug Contraindication: Treatment Not Indicated
--- NOTE | 2021-10-30 13:30 | HO.ANESPROP2 ---
HPI - Anesthesia Eval Consult details Narrative: 76 yo female patient for EGD with gold probe PMFSH Active Problems Active Problems: All Active Problems (Updated 10/29/21 @ 21:32 by Dee Peterson DO) Acute blood loss anemia (Acute) Acute GI bleeding (Acute) Vitamin B12 deficiency (Acute) Sevilla's esophagus (Acute) Anemia (Acute). 12 point drop in Hct since 10/23/21. No blood transfusions Gastric ulcer (Acute) Abnormal finding on EKG (Acute) Vertigo (Acute) Dizziness (Acute) Iron deficiency anemia (Acute) Acute blood loss anemia (Acute) Difficulty sleeping (Acute) Overweight (BMI 25.0-29.9) (Acute) Primary osteoarthritis of hand (Acute) Vitamin D deficiency (Acute) Osteopenia (Acute) Cardiac murmur (Acute) Hiatal hernia (Acute) Benign essential hypertension (Acute) Pure hypercholesterolemia (Acute) Dehydrated Past Medical History Medical History Anemia Sevilla's esophagus Benign essential hypertension Cardiac murmur Gastric ulcer Hiatal hernia History of blood transfusion Osteopenia Overweight (BMI 25.0-29.9) Primary osteoarthritis of hand Pure hypercholesterolemia Vitamin B12 deficiency Vitamin D deficiency Family History Family History Father Hypertension Mother Stroke Family history of problems with anesthesia: No Surgical History Surgical History History of appendectomy History of esophagogastroduodenoscopy (EGD) History of hysterectomy History of Problems with Anesthesia: No Social History Social History Household Members: Significant Other Housing: House Do you presently have visiting nurse or other home services: No Alcohol intake: never Patient Tobacco Use Status: Never used Tobacco e-Cigarette/Vaping Use: Never Used Second Hand Smoke Exposure: No Advance Directives Date on File: 01/22/21 service: No Current occupational status: retired Cognitive needs: No Hearing needs: No Vision needs: Yes (glasses) Meds Allergies Allergy/AdvReac Type Severity Reaction Status Date / Time enflurane [ENFLURANE] Allergy Severe Per Verified 10/29/21 14:33 Patient Liver toxicity piperacillin [Zosyn] Allergy Unknown Unknown Verified 10/29/21 14:33 tazobactam [Zosyn] Allergy Unknown Unknown Verified 10/29/21 14:33 Active Medications: Current Medications Acetaminophen (Acetaminophen 325 Mg Tablet) 650 mg PO Q6H PRN PRN Reason: Pain, Mild (Pain Scale 1-3) Amlodipine Besylate (Amlodipine Besylate 2.5 Mg Tablet) 2.5 mg PO DAILY [facility]; Protocol Last Admin: 10/30/21 08:51 Dose: 2.5 mg Atorvastatin Calcium (Atorvastatin Calcium 10 Mg Tablet) 10 mg PO DAILY [facility] Last Admin: 10/30/21 08:51 Dose: 10 mg Cyanocobalamin (Cyanocobalamin (Vitamin B-12) 1,000 Mcg Tablet) 1,000 mcg PO DAILY [facility] Last Admin: 10/30/21 08:51 Dose: 1,000 mcg Ferrous Sulfate (Ferrous Sulfate 324 Mg Tablet.Dr) 324 mg PO DAILY [facility] Last Admin: 10/30/21 08:51 Dose: 324 mg Pantoprazole Sodium 80 mg/ (Sodium Chloride) 100 mls @ 10 mls/hr IV .Q10H [facility] Last Admin: 10/30/21 08:22 Dose: 8 mg/hr, 10 mls/hr Ceftriaxone Sodium 1 gm/ (Sodium Chloride) 50 mls @ 100 mls/hr IV Q24H [facility] Last Infusion: 10/30/21 08:55 Dose: Infused Ondansetron HCl (Ondansetron Hcl 4 Mg/2 Ml Vial) 4 mg IVPUSH Q8H PRN PRN Reason: Nausea and Vomiting Pharmacy Consult (Consult Rx Perform Med Rec) 1 each MISCELLANE ONCE PRN PRN Reason: Consult order Sodium Chloride (0.9 % Sodium Chloride Flush 3 Ml Syringe) 3 ml IVFLUSH QSHIFT [facility] Last Admin: 10/30/21 08:51 Dose: 3 ml Vitamin D (Cholecalciferol (Vitamin D3) 25 Mcg Tablet) 25 mcg PO DAILY [facility] Last Admin: 10/30/21 08:51 Dose: 25 mcg Home Medications Medication Instructions Recorded Confirmed Last Taken Type ferrous sulfate 324 mg (65 mg 324 mg PO DAILY 08/10/21 10/29/21 10/29/21 History iron) tablet,delayed release omeprazole 40 mg capsule,delayed 40 mg PO DAILY 08/10/21 10/29/21 10/29/21 History release Exam Exam Date and Time: October 30, 2021 1330 Height,Weight and Vital Signs: Height 5 ft 6 in Weight 77.6 kg Last Vital Signs Temp 97.6 F 10/30/21 12:00 Pulse 66 10/30/21 12:00 Resp 18 10/30/21 12:00 BP 122/59 L 10/30/21 12:00 Pulse Ox 95 10/30/21 12:00 O2 Del Method 10/30/21 12:00 Vital Signs Temp Pulse Resp BP Pulse Ox O2 Del Method 10/30/21 13:38 98.3 F 77 18 143/57 H 97 Room Air 10/30/21 12:00 97.6 F 66 18 122/59 L 95 Room Air 10/30/21 08:00 97 F 66 18 117/59 L 97 Room Air 10/30/21 08:00 98 F 66 18 117/59 L 97 Room Air 10/30/21 05:51 98.6 F 62 16 120/44 L 98 Room Air 10/30/21 00:00 98.3 F 63 16 128/51 L 97 Room Air 10/29/21 22:00 98.2 F 67 16 141/54 H 98 Room Air 10/29/21 21:28 97.8 F 62 16 136/60 98 Room Air 10/29/21 20:02 97.0 F 92 18 139/70 97 Room Air 10/29/21 14:29 98.2 F 84 16 147/53 H 96 Room Air Pertinent Lab Results Pertinent Lab Results: Laboratory Tests 10/29/21 10/29/21 10/29/21 14:38 14:38 14:38 WBC 10.9 H RBC 3.44 L Hgb 9.9 L Hct 30.5 L MCV 88.7 MCH 28.8 MCHC 32.5 RDW 13.1 Plt Count 222 MPV 10.0 Immature Gran % (Auto) 0.5 H Neut % (Auto) 69.0 Lymph % (Auto) 20.0 [place] % (Auto) 8.2 Eos % (Auto) 1.8 Baso % (Auto) 0.5 Lymph # (Auto) 2.2 [place] # (Auto) 0.9 Eos # (Auto) 0.2 Baso # (Auto) 0.1 Abs Immat Gran (auto) 0.05 H Absolute Neuts (auto) 7.5 Absolute Nucleated RBC 0.000 Nucleated RBC % (auto) 0.0 Sodium 142 Potassium 4.1 Chloride 108 Carbon Dioxide 25 Anion Gap 13 BUN 20 H Creatinine 0.79 Estim Creat Clear Calc 62.6 Estimated GFR > 60 Random Glucose 81 Calcium 8.9 Total Bilirubin 0.4 Direct Bilirubin < 0.2 AST 20 ALT 14 Alkaline Phosphatase 43 Total Protein 6.5 Albumin 4.0 Lipase 29 Urine Color Urine Appearance Urine pH Ur Specific [place] Urine Protein Urine Glucose (UA) Urine Ketones Urine Blood Urine Nitrite Ur Leukocyte Esterase Urine RBC Urine WBC Ur Squamous Epith Cells Urine Bacteria Stool Occult Blood COVID-19 (TIARA) Negative COVID-19 Clin Com See Note Blood Type Antibody Screen 10/29/21 10/29/21 10/29/21 20:22 21:30 21:52 WBC RBC Hgb Hct MCV MCH MCHC RDW Plt Count MPV Immature Gran % (Auto) Neut % (Auto) Lymph % (Auto) [place] % (Auto) Eos % (Auto) Baso % (Auto) Lymph # (Auto) [place] # (Auto) Eos # (Auto) Baso # (Auto) Abs Immat Gran (auto) Absolute Neuts (auto) Absolute Nucleated RBC Nucleated RBC % (auto) Sodium Potassium Chloride Carbon Dioxide Anion Gap BUN Creatinine Estim Creat Clear Calc Estimated GFR Random Glucose Calcium Total Bilirubin Direct Bilirubin AST ALT Alkaline Phosphatase Total Protein Albumin Lipase Urine Color YELLOW Urine Appearance CLEAR Urine pH 5.5 Ur Specific [place] 1.020 Urine Protein NEG Urine Glucose (UA) NEG Urine Ketones NEG Urine Blood TRACE Urine Nitrite NEG Ur Leukocyte Esterase 1+ H Urine RBC 1-4 Urine WBC 10-14 H Ur Squamous Epith Cells 1+ Urine Bacteria NONE Stool Occult Blood POSITIVE COVID-19 (TIARA) COVID-19 Clin Com Blood Type A Positive Antibody Screen NEGATIVE 10/30/21 10/30/21 04:48 04:48 WBC 9.2 RBC 2.77 L Hgb 8.0 L Hct 24.7 L MCV 89.2 MCH 28.9 MCHC 32.4 RDW 13.2 Plt Count 179 MPV 10.0 Immature Gran % (Auto) 0.1 Neut % (Auto) 66.2 Lymph % (Auto) 24.3 [place] % (Auto) 6.6 Eos % (Auto) 2.4 Baso % (Auto) 0.4 Lymph # (Auto) 2.2 [place] # (Auto) 0.6 Eos # (Auto) 0.2 Baso # (Auto) 0.0 Abs Immat Gran (auto) 0.01 Absolute Neuts (auto) 6.1 Absolute Nucleated RBC 0.000 Nucleated RBC % (auto) 0.0 Sodium 144 Potassium 3.6 Chloride 112 H Carbon Dioxide 23 Anion Gap 13 BUN 23 H Creatinine 0.79 Estim Creat Clear Calc 62.6 Estimated GFR > 60 Random Glucose 96 Calcium 8.3 L D Total Bilirubin Direct Bilirubin AST ALT Alkaline Phosphatase Total Protein Albumin Lipase Urine Color Urine Appearance Urine pH Ur Specific [place] Urine Protein Urine Glucose (UA) Urine Ketones Urine Blood Urine Nitrite Ur Leukocyte Esterase Urine RBC Urine WBC Ur Squamous Epith Cells Urine Bacteria Stool Occult Blood COVID-19 ([facility]ARA) COVID-19 Clin Com Blood Type Antibody Screen Airway Mallampati Class: II TM Dist: >3cm Neck ROM: Full Partial: Upper and Lower Loose/Missing/Broken Teeth: No (No broken or loose) Heart: RRR + systolic murmur Lungs: CTAB Assessment and Plan Assessment Anesthesia Assessment: Anesthesia Plan Discussed and Chart Reviewed Final Anesthetic Review Family History of Problems with Anesthesia: No History of Problems with Anesthesia: No NPO: Yes ASA Class: III and Emergency Final Preanesthetic Review: No Changes in Pt Med Stat, Meds/Allgs Chart Reviewed, Consent Obtained/Reviewed and Anes Risks/Benef Reviewed Patient Risk: Intermediate Procedure Risk: Intermediate Assessment/Block/Sedation in SS: Assess/Block/Sedation-SS Anesthetic Plan Anesthetic Plan: GA and MAC: Disposition: Standard PACU and Inp. Admit - Standard Bed
--- NOTE | 2021-10-30 14:27 | PM.OP ---
Brief Operative Note Date of Service: 10/30/21 Pre-op diagnosis: GI bleed Post-op diagnosis: same Surgeon: Juarez Cantrell Was an Installation Coordinator used for this Procedure?: No
--- NOTE | 2021-10-30 14:32 | PM.EVENT ---
Event Note Date of Service: 10/31/21 Event Note: EGD no bleeding site identified, mild gastritis seen can change to oral ppi plan for colonoscopy tomorrow.
[2021-10-30] MEDS: Lactated Ringers 1,000 ML 100 ML IVCONT (15:56)
[2021-10-30] MEDS: PEG 3350/Na Sulf,Bicarb,Cl/KCL 4,000 ML SOLN.RECON 4000 ML PO (15:56)
[2021-10-31] VITALS (13 sets, daily range): BP systolic 73–159; BP diastolic 31–70; PULSE 60–85; RESP 16–20; TEMP 36.1–37.3; O2SAT 94–98
--- NOTE | 2021-10-31 00:29 | OP_ITS ---
SURGEON: Juarez Cantrell MD INDICATIONS: GI bleeding. PREOPERATIVE DIAGNOSIS: POSTOPERATIVE DIAGNOSIS: PROCEDURE PERFORMED: ESTIMATED BLOOD LOSS: COMPLICATIONS: ANESTHESIA: ASSISTANTS: SPECIMENS: PROCEDURE: Upper endoscopy. MEDICATIONS: Monitored anesthesia care. DESCRIPTION OF PROCEDURE: History and physical performed. The risks and benefits of the procedure were explained to the patient. Informed consent was obtained. The patient was placed in the left lateral decubitus position. The Olympus video gastroscope was introduced into the esophagus, stomach, and duodenum. Examination was performed. The scope was removed. She tolerated the procedure well and was returned to recovery area in stable condition. FINDINGS: Esophagus: The esophagus showed some venous lakes in the upper esophagus. 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 There was a small hiatal hernia. Stomach: The stomach showed no evidence of masses or ulcers. There were several small benign-appearing gastric polyps, mainly in the fundus, consistent with fundic gland polyps. There were a few focal areas of gastritis with no ulceration, one in the fundus and one in the body. Duodenum: The bulb and second portion were normal. IMPRESSION: 1. Gastritis. 2. Hiatal hernia. 3. Sevilla esophagus. RECOMMENDATIONS: 1. Follow up hematocrit monitoring. 2. Repeat colonoscopy will be discussed with the patient given her previous colonoscopy findings in 2017, which included colonic angiodysplasias. MD LEXX Dee/MARGARET / [id number]
[2021-10-31] MEDS: Lactated Ringers 1,000 ML 100 ML IVCONT (02:11)
--- NOTE | 2021-10-31 04:20 | CONS_ITS ---
DATE OF SERVICE: 10/30/2021 REFERRING PHYSICIAN: Prakash Patel REASON FOR CONSULTATION: GI bleeding. HISTORY OF PRESENT ILLNESS: The patient is a pleasant 76-year-old woman, who was admitted to the hospital today with GI bleeding. She states she was well until about a week ago when she had some bright red blood per rectum and was evaluated and diagnosed with hemorrhoids in the emergency department. Her hematocrit was stable and she was discharged. She has had continued bloody stools, which she described as similar to when she had a peptic ulcer earlier last year. She describes black stools and no further bright red blood. She denies any significant epigastric pain, nausea, vomiting, or hematemesis. She had no dysphagia. Lab work in the emergency department documented a hematocrit of 30.5, which was down from 36.7 on her previous visit. She was given IV fluids and her hematocrit this morning was 24.7 without any recurrent GI bleeding. She has been treated with a proton pump inhibitor infusion. She has been evaluated for GI bleeding, most recently in February with an upper endoscopy, which showed a shallow proximal gastric ulcer that was benign and biopsies were negative for malignancy. A capsule endoscopy was done in March 2021, which questioned patchy duodenitis and nonspecific enteritis prompting the upper endoscopy. Her last colonoscopy was in 2017 and showed colonic angiodysplasias. 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 PAST MEDICAL HISTORY: 1. GI bleeding as above. 2. Peptic ulcer disease. 3. Sevilla esophagus. 4. Hypertension. 5. Hyperlipidemia. 6. Fatty liver. 7. Pancreatitis. 8. Vitamin B12 and vitamin D deficiency. 9. Iron deficiency anemia. 10. Osteopenia. CURRENT MEDICATIONS: Her current medication list is reviewed in the chart. She is not taking any anticoagulants or NSAIDs. ALLERGIES: ENFLURANE, PIPERACILLIN, AND TAZOBACTAM. FAMILY HISTORY: This is reviewed with the patient and is noncontributory. SOCIAL HISTORY: There is no current tobacco, alcohol, or substance abuse. REVIEW OF SYSTEMS: SKIN: No pruritus. HEENT: Negative. CARDIOPULMONARY: She denies shortness of breath or chest pain. GASTROINTESTINAL: As above. GENITOURINARY: Negative. NEUROPSYCHIATRIC: Negative. PHYSICAL EXAMINATION: GENERAL: A pleasant female, lying comfortably in bed. VITAL SIGNS: Reviewed in the electronic medical record and are stable. RECTAL: In the emergency department reportedly showed dark melenic stool on examination. SKIN: Anicteric. HEENT: No scleral icterus. NECK: Without lymphadenopathy or thyromegaly. LUNGS: Clear. HEART: Regular rate and rhythm. S1, S2. No murmur. ABDOMEN: Soft without focal masses or tenderness. Bowel sounds are present. No organomegaly is noted. EXTREMITIES: Without edema. LABORATORY DATA: Reviewed. IMPRESSION: Gastrointestinal bleeding. We discussed the broad differential diagnosis for this including bleeding from arteriovenous malformations, peptic ulcer disease, and other sources. I have recommended she undergo upper endoscopy at this time because of her history of gastric ulcer, although she has been maintained on 40 mg of omeprazole daily. I have discussed the risks and benefits of the procedure with her. She understands these and agrees to proceed. If this is negative, she may benefit from repeat colonoscopy since her last examination was in 2017, and she did have arteriovenous malformations. Thanks for asking me to see her. I will follow her in the hospital with you. MD LEXX Dee/MARGARET / [id number]
[2021-10-31] MEDS: cefTRIAXone sodium 1 GM in 0.9 % Sodium Chloride 50 ML IV (05:46)
[2021-10-31 06:09] LABS: Hematocrit 22.1 % (37.0-47.0); Hemoglobin 7.3 g/dl (12.0-16.0); Mean Corpuscular Hemoglobin 29.2 pg (27.0-33.0); Mean Corpuscular Volume 88.4 fL (80.0-98.0); Mean Platelet Volume 10.5 fL (9.4-12.3); Platelet Count 164 X10*3/uL (160-400); Red Cell Distribution Width 13.2 % (11.0-16.0); White Blood Count 8.3 X10*3/uL (4.8-10.8)
--- NOTE | 2021-10-31 07:15 | P.CONAN_ITS ---
HPI - Anesthesia Eval Consult details Narrative: For colonoscopy [facility] Active Problems Active Problems: All Active Problems (Updated 10/29/21 @ 21:32 by Dee Peterson DO) Acute blood loss anemia (Acute) Acute GI bleeding (Acute) Vitamin B12 deficiency (Acute) Sevilla's esophagus (Acute) Anemia (Acute) Gastric ulcer (Acute) Abnormal finding on EKG (Acute) Vertigo (Acute) Dizziness (Acute) Iron deficiency anemia (Acute) Acute blood loss anemia (Acute) Difficulty sleeping (Acute) Overweight (BMI 25.0-29.9) (Acute) Primary osteoarthritis of hand (Acute) Vitamin D deficiency (Acute) Osteopenia (Acute) Cardiac murmur (Acute) Hiatal hernia (Acute) Benign essential hypertension (Acute) Pure hypercholesterolemia (Acute) Past Medical History Medical History Anemia Sevilla's esophagus Benign essential hypertension Cardiac murmur Gastric ulcer Hiatal hernia History of blood transfusion Osteopenia Overweight (BMI 25.0-29.9) Primary osteoarthritis of hand Pure hypercholesterolemia Vitamin B12 deficiency Vitamin D deficiency Family History Family History Father Hypertension Mother Stroke Family history of problems with anesthesia: No Surgical History Surgical History History of appendectomy History of esophagogastroduodenoscopy (EGD) History of hysterectomy History of Problems with Anesthesia: No Social History Social History Household Members: Significant Other Housing: House Do you presently have visiting nurse or other home services: No Alcohol intake: never Patient Tobacco Use Status: Never used Tobacco e-Cigarette/Vaping Use: Never Used Second Hand Smoke Exposure: No Advance Directives Date on File: 01/22/21 service: No Current occupational status: retired Cognitive needs: No Hearing needs: No Vision needs: Yes (glasses) Meds Allergies Allergy/AdvReac Type Severity Reaction Status Date / Time enflurane [ENFLURANE] Allergy Severe Per Verified 10/29/21 14:33 Patient Liver toxicity piperacillin [Zosyn] Allergy Unknown Unknown Verified 10/29/21 14:33 tazobactam [Zosyn] Allergy Unknown Unknown Verified 10/29/21 14:33 Active Medications: Current Medications Acetaminophen (Acetaminophen 325 Mg Tablet) 650 mg PO Q6H PRN PRN Reason: Pain, Mild (Pain Scale 1-3) Amlodipine Besylate (Amlodipine Besylate 2.5 Mg Tablet) 2.5 mg PO DAILY [facility]; Protocol Last Admin: 10/30/21 08:51 Dose: 2.5 mg Atorvastatin Calcium (Atorvastatin Calcium 10 Mg Tablet) 10 mg PO DAILY [facility] Last Admin: 10/30/21 08:51 Dose: 10 mg Cyanocobalamin (Cyanocobalamin (Vitamin B-12) 1,000 Mcg Tablet) 1,000 mcg PO DAILY [facility] Last Admin: 10/30/21 08:51 Dose: 1,000 mcg Ferrous Sulfate (Ferrous Sulfate 324 Mg Tablet.) 324 mg PO DAILY [facility] Last Admin: 10/30/21 08:51 Dose: 324 mg Ceftriaxone Sodium 1 gm/ (Sodium Chloride) 50 mls @ 100 mls/hr IV Q24H [facility] Last Infusion: 10/31/21 06:24 Dose: Infused Lactated Ringer's (Lr) 1,000 mls @ 100 mls/hr IVCONT .Q10H [facility] Last Admin: 10/31/21 02:11 Dose: 100 mls/hr Omeprazole (Omeprazole 40 Mg Capsule.) 40 mg PO DAILY@0630 [facility] Last Admin: 10/31/21 05:42 Dose: Not Given Ondansetron HCl (Ondansetron Hcl 4 Mg/2 Ml Vial) 4 mg IVPUSH Q8H PRN PRN Reason: Nausea and Vomiting Ondansetron HCl (Ondansetron Hcl 4 Mg/2 Ml Vial) 4 mg IVPUSH ONCE PRN PRN Reason: Nausea and Vomiting Pharmacy Consult (Consult Rx Perform Med Rec) 1 each MISCELLANE ONCE PRN PRN Reason: Consult order Sodium Chloride (0.9 % Sodium Chloride Flush 3 Ml Syringe) 3 ml IVFLUSH QSHIFT [facility] Last Admin: 10/30/21 22:13 Dose: 3 ml Vitamin D (Cholecalciferol (Vitamin D3) 25 Mcg Tablet) 25 mcg PO DAILY [facility] Last Admin: 10/30/21 08:51 Dose: 25 mcg Home Medications Medication Instructions Recorded Confirmed Last Taken Type ferrous sulfate 324 mg (65 mg 324 mg PO DAILY 08/10/21 10/29/21 10/29/21 History iron) tablet,delayed release omeprazole 40 mg capsule,delayed 40 mg PO DAILY 08/10/21 10/29/21 10/29/21 History release Exam Exam Date and Time: October 31, 2021714 Height,Weight and Vital Signs: Height 5 ft 6 in Weight 77.6 kg Last Vital Signs Temp 97.9 F 10/31/21 03:45 Pulse 65 10/31/21 03:45 Resp 17 10/31/21 03:45 BP 108/52 L 10/31/21 03:45 Pulse Ox 98 10/31/21 03:45 O2 Del Method 10/31/21 03:45 Pertinent Lab Results Pertinent Lab Results: Laboratory Tests 10/29/21 10/29/21 10/29/21 14:38 14:38 14:38 WBC 10.9 H RBC 3.44 L Hgb 9.9 L Hct 30.5 L MCV 88.7 MCH 28.8 MCHC 32.5 RDW 13.1 Plt Count 222 MPV 10.0 Immature Gran % (Auto) 0.5 H Neut % (Auto) 69.0 Lymph % (Auto) 20.0 [place] % (Auto) 8.2 Eos % (Auto) 1.8 Baso % (Auto) 0.5 Lymph # (Auto) 2.2 [place] # (Auto) 0.9 Eos # (Auto) 0.2 Baso # (Auto) 0.1 Abs Immat Gran (auto) 0.05 H Absolute Neuts (auto) 7.5 Absolute Nucleated RBC 0.000 Nucleated RBC % (auto) 0.0 Sodium 142 Potassium 4.1 Chloride 108 Carbon Dioxide 25 Anion Gap 13 BUN 20 H Creatinine 0.79 Estim Creat Clear Calc 62.6 Estimated GFR > 60 Random Glucose 81 Calcium 8.9 Total Bilirubin 0.4 Direct Bilirubin < 0.2 AST 20 ALT 14 Alkaline Phosphatase 43 Total Protein 6.5 Albumin 4.0 Lipase 29 Urine Color Urine Appearance Urine pH Ur Specific [place] Urine Protein Urine Glucose (UA) Urine Ketones Urine Blood Urine Nitrite Ur Leukocyte Esterase Urine RBC Urine WBC Ur Squamous Epith Cells Urine Bacteria Stool Occult Blood COVID-19 (TIARA) Negative COVID-19 Clin Com See Note Blood Type Antibody Screen 10/29/21 10/29/21 10/29/21 20:22 21:30 21:52 WBC RBC Hgb Hct MCV MCH MCHC RDW Plt Count MPV Immature Gran % (Auto) Neut % (Auto) Lymph % (Auto) [place] % (Auto) Eos % (Auto) Baso % (Auto) Lymph # (Auto) [place] # (Auto) Eos # (Auto) Baso # (Auto) Abs Immat Gran (auto) Absolute Neuts (auto) Absolute Nucleated RBC Nucleated RBC % (auto) Sodium Potassium Chloride Carbon Dioxide Anion Gap BUN Creatinine Estim Creat Clear Calc Estimated GFR Random Glucose Calcium Total Bilirubin Direct Bilirubin AST ALT Alkaline Phosphatase Total Protein Albumin Lipase Urine Color YELLOW Urine Appearance CLEAR Urine pH 5.5 Ur Specific [place] 1.020 Urine Protein NEG Urine Glucose (UA) NEG Urine Ketones NEG Urine Blood TRACE Urine Nitrite NEG Ur Leukocyte Esterase 1+ H Urine RBC 1-4 Urine WBC 10-14 H Ur Squamous Epith Cells 1+ Urine Bacteria NONE Stool Occult Blood POSITIVE COVID-19 ([facility]ARA) COVID-19 Clin Com Blood Type A Positive Antibody Screen NEGATIVE 10/30/21 10/30/21 10/31/21 04:48 04:48 05:21 WBC 9.2 8.3 RBC 2.77 L 2.50 L Hgb 8.0 L 7.3 L Hct 24.7 L 22.1 L MCV 89.2 88.4 MCH 28.9 29.2 MCHC 32.4 33.0 RDW 13.2 13.2 Plt Count 179 164 MPV 10.0 10.5 Immature Gran % (Auto) 0.1 Neut % (Auto) 66.2 Lymph % (Auto) 24.3 [place] % (Auto) 6.6 Eos % (Auto) 2.4 Baso % (Auto) 0.4 Lymph # (Auto) 2.2 [place] # (Auto) 0.6 Eos # (Auto) 0.2 Baso # (Auto) 0.0 Abs Immat Gran (auto) 0.01 Absolute Neuts (auto) 6.1 Absolute Nucleated RBC 0.000 0.000 Nucleated RBC % (auto) 0.0 0.0 Sodium 144 Potassium 3.6 Chloride 112 H Carbon Dioxide 23 Anion Gap 13 BUN 23 H Creatinine 0.79 Estim Creat Clear Calc 62.6 Estimated GFR > 60 Random Glucose 96 Calcium 8.3 L D Total Bilirubin Direct Bilirubin AST ALT Alkaline Phosphatase Total Protein Albumin Lipase Urine Color Urine Appearance Urine pH Ur Specific [place] Urine Protein Urine Glucose (UA) Urine Ketones Urine Blood Urine Nitrite Ur Leukocyte Esterase Urine RBC Urine WBC Ur Squamous Epith Cells Urine Bacteria Stool Occult Blood COVID-19 ([facility]ARA) COVID-19 Clin Com Blood Type Antibody Screen Airway Mallampati Class: II TM Dist: >3cm Neck ROM: Full Partial: Lower Loose/Missing/Broken Teeth: Yes Heart: ok Lungs: ok Assessment and Plan Final Anesthetic Review Family History of Problems with Anesthesia: No History of Problems with Anesthesia: No NPO: Yes ASA Class: III Final Preanesthetic Review: No Changes in Pt Med Stat, Meds/Allgs Chart Reviewed, Consent Obtained/Reviewed, Anes Risks/Benef Reviewed and DNR Form (If Appl.) Patient Risk: High Procedure Risk: Low Anesthetic Plan Anesthetic Plan: MAC: and Agree w/ Assess. and Plan Disposition: Standard PACU
--- NOTE | 2021-10-31 08:17 | PM.EVENT ---
Event Note Date of Service: 10/31/21 Event Note: GI Colonoscopy note dictated 1mm nonbleeding cecal AVM small r colon polyp, bx'd mild sigmoid diverticulosis small internal hemorrhoids rec advance diet prbc x1U follow hct.
--- NOTE | 2021-10-31 08:21 | P.BOP_ITS ---
Brief Operative Note Date of Service: 10/31/21 Pre-op diagnosis: GI bleed Post-op diagnosis: same Procedure: colonoscopy Surgeon: Juarez Cantrell Anesthesia: MAC Was an Nutritionist Public Health used for this Procedure?: No Estimated blood loss (mL): 2 Pathology: other Condition: stable Disposition: PACU
--- NOTE | 2021-10-31 08:56 | OP_ITS ---
SURGEON: Juarez Cantrell MD INDICATIONS: GI bleeding. PREOPERATIVE DIAGNOSIS: POSTOPERATIVE DIAGNOSIS: PROCEDURE PERFORMED: Colonoscopy to the terminal ileum with biopsy. ESTIMATED BLOOD LOSS: COMPLICATIONS: ANESTHESIA: ASSISTANTS: SPECIMENS: MEDICATIONS: Monitored anesthesia care. DESCRIPTION OF PROCEDURE: History and physical performed. The risks and benefits of the procedure were explained to the patient. Informed consent was obtained. The patient was placed in the left lateral decubitus position. A digital rectal exam was performed and was found to be normal. The Olympus pediatric video colonoscope was introduced into the rectum and advanced to the cecum without difficulty. The cecum was identified by transillumination, palpation, and identification of ileocecal valve. Examination was performed. The scope was removed. She tolerated the procedure well and was returned to recovery area in stable condition. FINDINGS: The terminal ileum was explored for 10 cm and appeared normal. There was no bleeding. The visualized colonic mucosa was normal without evidence of active bleeding. The quality of prep was excellent. In the cecum, was a 1 mm nonbleeding AVM. No therapy was performed. At 70 cm, was a less than 5 mm sessile polyp, which was removed with biopsy forceps. There was some very mild sigmoid diverticulosis and some small internal hemorrhoids. There was no colitis or mass lesion. Retroflexed examination was otherwise normal. IMPRESSION: 1. Colon polyp. 2. Nonbleeding cecal arteriovenous malformation. RECOMMENDATIONS: 1. Follow up the biopsy results. 2. Advance diet. MD LEXX Dee/MARGARET / [id number] MTDD
--- NOTE | 2021-10-31 09:12 | PC.NURSE ---
During pt's colonoscopy procedure, noted pt's BP near end of case was 72/29. Pre-operatively her BP was 130/70s. This was brought to Dr. Black, anesthesiologist's attention. No orders received. Final (next) BP 68/34. Pt was brought to PACU with Dr. Black and this RN. Report to Emily Carlos RN.
[2021-10-31] MEDS: amLODIPine Besylate 2.5 MG TABLET PO (09:28)
[2021-10-31] MEDS: Ferrous Sulfate 324 MG TABLET.DR PO (09:28)
[2021-10-31] MEDS: Cholecalciferol (Vitamin D3) 25 MCG TABLET PO (09:28)
[2021-10-31] MEDS: 0.9 % Sodium Chloride Flush 3 ML SYRINGE IVFLUSH (09:29)
[2021-10-31] MEDS: Cyanocobalamin (Vitamin B-12) 1,000 MCG TABLET 1000 MCG PO (09:29)
[2021-10-31] MEDS: Atorvastatin Calcium 10 MG TABLET PO (09:29)
--- NOTE | 2021-10-31 10:55 | P.PNIM_ITS ---
Subjective Subjective Date of Service: 10/31/21 Interval History: f/u on GIB, acute blood loss anemia Interval history: No active bleed, hemodynamically stable, EGD 10/30 no source of bleed colonoscopy 10/31 1mm nonbleeding cecal AVM small r colon polyp, bx'd H/H is lower today Review of Systems melana no sob no chest pain no dizziness Physical Exam Vital Signs: Vital Signs: Last Vital Signs Temp 97.9 F 10/31/21 10:28 Pulse 76 10/31/21 10:28 Resp 18 10/31/21 10:28 BP 114/56 L 10/31/21 10:28 Pulse Ox 96 10/31/21 09:35 O2 Del Method 10/31/21 09:35 BMI result Body Mass Index 27.6 Const: Other: General: AO X 3, no acute distress Resp: CTA bilateral CVS: S1,S2,RRR GI: +BS, NT, no distention, recal exam deffered Skin: No rash Neuro: motor grossly intact Psych: appropriate affect Objective Data Active Medications Acetaminophen (Acetaminophen 325 Mg Tablet) 650 mg PO Q6H PRN PRN Reason: Pain, Mild (Pain Scale 1-3) Acetaminophen (Acetaminophen 325 Mg Tablet) 650 mg PO ONCE PRN PRN Reason: Pain, Mild (Pain Scale 1-3) Amlodipine Besylate (Amlodipine Besylate 2.5 Mg Tablet) 2.5 mg PO DAILY [facility]; Protocol Last Admin: 10/31/21 09:28 Dose: 2.5 mg Documented By: TIFF Atorvastatin Calcium (Atorvastatin Calcium 10 Mg Tablet) 10 mg PO DAILY [facility] Last Admin: 10/31/21 09:29 Dose: 10 mg Documented By: TIFF Cyanocobalamin (Cyanocobalamin (Vitamin B-12) 1,000 Mcg Tablet) 1,000 mcg PO DAILY [facility] Last Admin: 10/31/21 09:29 Dose: 1,000 mcg Documented By: TIFF Ferrous Sulfate (Ferrous Sulfate 324 Mg Tablet.) 324 mg PO DAILY [facility] Last Admin: 10/31/21 09:28 Dose: 324 mg Documented By: TIFF Ceftriaxone Sodium 1 gm/ (Sodium Chloride) 50 mls @ 100 mls/hr IV Q24H [facility] Last Infusion: 10/31/21 06:24 Dose: 0 mls/hr Documented By: JULIEN Lactated Ringer's (Lr) 1,000 mls @ 100 mls/hr IVCONT .Q10H [facility] Last Admin: 10/31/21 02:11 Dose: 100 mls/hr Documented By: JULIEN Omeprazole (Omeprazole 40 Mg Capsule.Dr) 40 mg PO DAILY@0630 [facility] Last Admin: 10/31/21 05:42 Dose: Not Given Documented By: JULIEN Non-Admin Reason: NPO Ondansetron HCl (Ondansetron Hcl 4 Mg/2 Ml Vial) 4 mg IVPUSH Q8H PRN PRN Reason: Nausea and Vomiting Ondansetron HCl (Ondansetron Hcl 4 Mg/2 Ml Vial) 4 mg IVPUSH ONCE PRN PRN Reason: Nausea and Vomiting Ondansetron HCl (Ondansetron Hcl 4 Mg/2 Ml Vial) 4 mg IVPUSH ONCE PRN PRN Reason: Nausea and Vomiting Pharmacy Consult (Consult Rx Perform Med Rec) 1 each MISCELLANE ONCE PRN PRN Reason: Consult order Sodium Chloride (0.9 % Sodium Chloride Flush 3 Ml Syringe) 3 ml IVFLUSH QSHIFT [facility] Last Admin: 10/31/21 09:29 Dose: 3 ml Documented By: TIFF Vitamin D (Cholecalciferol (Vitamin D3) 25 Mcg Tablet) 25 mcg PO DAILY [facility] Last Admin: 10/31/21 09:28 Dose: 25 mcg Documented By: TIFF Labs CBC & Chem 7: 10/31/21 05:21 10/30/21 04:48 Labs: Laboratory Results - last 24 hr 10/29/21 10/31/21 21:52 05:21 MCV 88.4 MCH 29.2 MCHC 33.0 RDW 13.2 Plt Count 164 MPV 10.5 Absolute Nucleated RBC 0.000 Nucleated RBC % (auto) 0.0 Blood Type A Positive Antibody Screen NEGATIVE Crossmatch See Detail Microbiology Microbiology Results: Microbiology 10/29/21 20:22 Urine Culture - Final Urine clean catch - Urine cabrera top Assessment and Plan (1) Acute GI bleeding: Status: Acute (2) Acute blood loss anemia: Status: Acute Plan 76-year-old female with past medical history of GI bleed in 2020 who presents to the hospital with complaints of tarry stools #? acute GI bleed, Acute blood anemia, H/H lower today -EGD 10/30 no source of bleed -Colonoscopy today 10/31: 1mm nonbleeding cecal AVM -small r colon polyp, bx'd -Transfuse 1 unit today -Advance diet, repeat H/H tomorrow morning # hypertension--controlled on Norvasc ?DVT prophylaxis:? SCDs in the setting of GI bleed ?Need for inaptient: Acute GIB with signficant anemia, need tranfusion and monitoring for response Quality Stroke Does the patient have a stroke diagnosis?: No VTE Prior VTE?: No VTE Risk Level:: Medical - moderate - high VTE Device Contraindication: N/A - Device Ordered VTE Drug Contraindication: Treatment Not Indicated
--- NOTE | 2021-10-31 12:56 | MHC.CM.PN ---
Per ROUNDS discussion, patient is Not yet medically cleared for discharge today r/t Acute GIB with significant anemia needing transfusion and monitoring. D/C plans continues to be Home self-care vs Home with New VNA. CM will continue to follow for discharge needs.
--- NOTE | 2021-10-31 13:47 | HO.POSTANES ---
Post Anesthesia Evaluation Post Anesthesia Evaluation Vital Signs: Vital Signs Temp Pulse Resp BP Pulse Ox O2 Del Method 10/31/21 11:52 98.5 F 75 18 109/53 L 10/31/21 10:28 97.9 F 76 18 114/56 L 10/31/21 10:09 98.1 F 68 18 137/65 10/31/21 09:44 137/65 10/31/21 09:35 98.1 F 68 18 159/70 H 96 Room Air 10/31/21 08:40 97.0 F 67 18 107/40 L 96 Room Air 10/31/21 08:28 69 17 92/36 L 97 Room Air 10/31/21 08:23 98.6 F 67 20 73/31 L 96 Room Air 10/31/21 07:15 98.5 F 85 18 130/70 95 Room Air 10/31/21 03:45 97.9 F 65 17 108/52 L 98 Room Air Anesthesia: Monitored Mental Status: Awake Pain Control: Satisfactory Nausea/Vomiting: None Hydration: Adequate Anesthesia-Related Issues: No Anes. Related Issues
[2021-11-01] MEDS: Lactated Ringers 1,000 ML 100 ML IVCONT (02:35)
[2021-11-01 03:26] VITALS: BP 164/71; PULSE 87; RESP 18; TEMP 36.2; O2SAT 95
[2021-11-01 05:54] LABS: Hematocrit 27.3 % (37.0-47.0); Mean Corpuscular Hemoglobin 29.2 pg (27.0-33.0); Mean Corpuscular Volume 88.6 fL (80.0-98.0); Mean Platelet Volume 10.5 fL (9.4-12.3); Platelet Count 172 X10*3/uL (160-400); Red Blood Count 3.08 X10*6/uL (4.20-5.50); Red Cell Distribution Width 13.6 % (11.0-16.0); White Blood Count 9.4 X10*3/uL (4.8-10.8)
[2021-11-01] MEDS: cefTRIAXone sodium 1 GM in 0.9 % Sodium Chloride 50 ML IV (06:11)
[2021-11-01] MEDS: Omeprazole 40 MG CAPSULE.DR PO (06:19)
[2021-11-01 07:21] VITALS: O2SAT 98
[2021-11-01 07:38] VITALS: BP 159/72; PULSE 62; RESP 18; TEMP 36.2; O2SAT 98
[2021-11-01] MEDS: Atorvastatin Calcium 10 MG TABLET PO (09:27)
[2021-11-01] MEDS: Ferrous Sulfate 324 MG TABLET.DR PO (09:27)
[2021-11-01] MEDS: amLODIPine Besylate 2.5 MG TABLET PO (09:27)
[2021-11-01] MEDS: Cyanocobalamin (Vitamin B-12) 1,000 MCG TABLET 1000 MCG PO (09:27)
[2021-11-01] MEDS: Cholecalciferol (Vitamin D3) 25 MCG TABLET PO (09:27)
[2021-11-01] MEDS: 0.9 % Sodium Chloride Flush 3 ML SYRINGE IVFLUSH (09:27)
--- NOTE | 2021-11-01 09:54 | HO.POSTANES ---
Post Anesthesia Evaluation Post Anesthesia Evaluation Vital Signs: Vital Signs Temp Pulse Resp BP Pulse Ox O2 Del Method 11/01/21 07:38 97.2 F 62 18 159/72 H 98 Room Air 11/01/21 03:26 97.2 F 87 18 164/71 H 95 Room Air 10/31/21 23:29 98.1 F 60 18 118/57 L 96 Room Air Anesthesia: Monitored Mental Status: Awake Pain Control: Satisfactory Nausea/Vomiting: None Hydration: Adequate Anesthesia-Related Issues: No Anes. Related Issues
--- NOTE | 2021-11-01 10:46 | PM.DS ---
DS: Providers Provider Date of Service: 11/01/21 Date of admission: 10/29/21 22:13 Date of discharge: 11/01/21 Primary care physician: Colt Teran MD Consults: 10/29/21 22:12 Consult to Gastroenterology Routine Consulting Provider: Juarez Cantrell Reason for consultation: GI bleed Has provider been notified: No Attending physician on discharge: Luigi Olivera Discharging clinician: Chikis Montano DS: Diagnosis Discharge Diagnosis (1) Acute GI bleeding: Status: Acute (2) Acute blood loss anemia: Status: Acute DS: Summary Hospital Course Hospital Course: From H&P on day of admission this is a pleasant 76-year-old female with past medical history of Sevilla's esophagus, HTN, history of GI bleed with gastric ulcer, history of hiatal hernia, HLD, vitamin B12 and vitamin-D deficiency, iron deficiency anemia, presents the hospital with complaints of dark tarry stools.? Patient reports that her symptoms started about a week ago with a bright blood BM, she came to the hospital, was told that she probably has internal hemorrhoids, her hemoglobin was stable and therefore she was sent home.? She comes back stating that she continued to have dark tarry stool with every BM ever since.? She reports no? bright blood with stools at this time.? She reports dizziness, with no other symptoms.? She states that her abdomen is overall uncomfortable but has no pain she has no nausea or vomiting, her appetite is the same.? She denies taking any aspirin or NSAIDs.? Denies any chest pain, no palpitations, no diarrhea? Up until today developed 2 episodes while in the ED, no urinary symptoms and no lower extremity edema. ?on arrival to the ED patient hemodynamically stable with no significant abnormal vitals Labs are significant for WBC count of 10.9, hemoglobin of 9.9 which dropped from 12.1 on 10/23, hematocrit 30.5, BUN of 20, UA positive for leukocyte Estrace and WBC ?patient will be admitted for further management acute blood loss anemia secondary to acute GI bleeding. H/ H 9.9/30.5 on October 29, dropped to 7.3/22.1, received 1 unit of RBCs with improvement to 12/18 on day of discharge. Patient was seen by GI and underwent endoscopy / colonoscopy. EGD showed mild gastritis but no bleeding site identified. Colonoscopy with 1 mm nonbleeding cecal AVM, small right colon polyp which was biopsied, mild sigmoid diverticulosis and small internal hemorrhoids. Her diet was advanced and she is tolerating a regular diet. No further bleeding. Vital signs have remained stable. Recommend she follow up outpatient with PCP. Continue home dose of omeprazole. Follow-up outpatient with GI for biopsy results, further management. Time Spent with Patient Time attestation: Total time spent providing and/or coordinating discharge services: Discharge coordination time: Greater than 30 minutes Quality: Safe Use of Opioids Does Pt have an Active Cancer Diagnosis on the Problem List?: No Quality: Stroke Does the patient have a stroke diagnosis?: No Physical Exam Vital Signs: Vital Signs: Last Vital Signs Temp 97.2 F 11/01/21 07:38 Pulse 62 11/01/21 07:38 Resp 18 11/01/21 07:38 BP 159/72 H 11/01/21 07:38 Pulse Ox 98 11/01/21 07:38 O2 Del Method 11/01/21 07:38 BMI result Body Mass Index 27.6 Const: General: cooperative, comfortable, no acute distress, alert and awake Orientation/consciousness: patient oriented x3 Resp: Effort & Inspection: normal respiratory effort and able to speak in complete sentences Cardio: Rate: regular rate GI: Inspection: No distended Palpation (GI): Soft to palpation and nontender Neuro: General: patient oriented x3 Extrem: General: Yes no pedal edema DS: Data Data Completed and Pending Completed studies during hospitalization [Text1]: Procedures Inspection of Upper Intestinal Tract, Via Natural or Artificial Opening Endoscopic (01/21/21) Transfusion of Nonautologous Red Blood Cells into Peripheral Vein, Percutaneous Approach (01/21/21) Pending studies at discharge: Pending at discharge 10/31/21 07:59 Surgical [PTH] Routine Labs on day of discharge: Laboratory Results - last 24 hr 10/29/21 11/01/21 21:52 05:34 WBC 9.4 RBC 3.08 L D Hgb 9.0 L D Hct 27.3 L D MCV 88.6 MCH 29.2 MCHC 33.0 RDW 13.6 Plt Count 172 MPV 10.5 Absolute Nucleated RBC 0.000 Nucleated RBC % (auto) 0.0 Crossmatch See Detail Discharge Plan Discharge Patient Disposition: Home, Self-Care Discharge Diagnosis: Anemia/GIB Referrals: Colt Teran MD [Primary Care Provider] - 1 Week Discharge Medications: Continued raloxifene 60 mg tablet 60 mg PO DAILY 90 Days Qty: 90 3RF atorvastatin 10 mg tablet 10 mg PO DAILY 90 Days Qty: 90 3RF amlodipine 2.5 mg tablet 2.5 mg PO DAILY 90 Days Qty: 90 0RF cholecalciferol (vitamin D3) 25 mcg (1,000 unit) capsule 25 mcg PO DAILY 90 Days Qty: 90 3RF cyanocobalamin (vitamin B-12) [Vitamin B-12] 1,000 mcg tablet 1,000 mcg PO DAILY 90 Days Qty: 90 3RF ferrous sulfate 324 mg (65 mg iron) tablet,delayed release (DR/EC) 324 mg PO DAILY omeprazole 40 mg capsule,delayed release(DR/EC) 40 mg PO DAILY Discharge Orders: Discharge Order (Routine); Ordered 11/01/21 Ordered By: Chikis Montano Activity on Discharge: As tolerated Stand Alone Forms: Patient Portal Discharge page Other Ambulatory Orders: Complete Blood Count no Diff (Routine) Timeframe: [id number] Facility: [facility] - Location: Laboratory Ordered By: Chikis Montano Care Plan Goals: see below Health Concerns: Anemia secondary to GI bleeding. EGD -no bleeding site identified, mild gastritis seen colonoscopy- nonbleeding cecal AVM, small right colon polyp (biopsied) mild sigmoid diverticulosis, small internal hemorrhoids hemoglobin/hematocrit improved to 9/27.3 with blood transfusion monitor for signs of bleeding- return to closest ED with any recurrent bleeding, dizziness shortness of breath etc avoid use of NSAIDs Plan of Treatment: follow up biopsy results Call to schedule follow-up with GI call to schedule follow-up appointment with PCP repeat CBC next week Assessment: see discharge summary Discharge Date/Time: 11/01/21 13:00
--- NOTE | 2021-11-01 11:33 | MHC.CM.PN ---
Patient has been medically cleared for discharge today; discharge is Home (self-Care). No IMM needed.
[2021-11-01 11:37] VITALS: BP 169/72; PULSE 68; RESP 18; TEMP 36.4; O2SAT 94
[2021-11-01 13:00] VITALS: O2SAT 100
[2021-11-01 13:35] VITALS: BP 107/59; PULSE 63; RESP 17; TEMP 36.8; O2SAT 100
== END 2021-11-01 13:00 | disposition home or self-care (01) | DRG 241 ==
LOC: HO.ED 21:42 → HO.EDOVER 22:17 → HO.S3 10-30 06:27
PROVIDERS: Internal Medicine; Internal Medicine Gastroenterology; Admitting Provider Internal Medicine; Emergency Provider Emergency Medicine; PCP Internal Medicine; Visit Provider Physician Assistant Medical
PROC: 0DJD8ZZ Inspection of Lower Intestinal Tract, Via Natural or Artificial Opening Endoscopic (ICD-10-PCS; CPT 45378; principal; 2021-10-31 07:30)
DX: K29.71 Gastritis, unspecified, with bleeding (principal); K55.21 Angiodysplasia of colon with hemorrhage; D62 Acute posthemorrhagic anemia; I10 Essential (primary) hypertension; E78.5 Hyperlipidemia, unspecified; K22.70 Barrett's esophagus without dysplasia; K31.7 Polyp of stomach and duodenum; K44.9 Diaphragmatic hernia without obstruction or gangrene; K63.5 Polyp of colon; Z20.822 Contact with and (suspected) exposure to COVID-19; Z88.8 Allergy status to other drugs, medicaments and biological substances; Z79.899 Other long term (current) drug therapy
CPT/HCPCS: 36415; 80048; 80076; 81001; 82272; 83690; 85025; 85027; 86850; 86900; 86901; 86923; 87086; 87635; 88305; 93005; 96374; 96375; 99285; J0696; P9016

== ENCOUNTER 2021-11-08 11:28 | Outpatient (REF) | payer BC, SELFPAY ==
[2021-11-08 12:00] LABS: Hematocrit 32.1 % (37.0-47.0); Hemoglobin 10.2 g/dl (12.0-16.0); Mean Corpuscular HGB Conc 31.8 g/dl (31.0-35.0); Mean Corpuscular Volume 91.2 fL (80.0-98.0); Mean Platelet Volume 9.9 fL (9.4-12.3); Platelet Count 205 X10*3/uL (160-400); Red Blood Count 3.52 X10*6/uL (4.20-5.50); Red Cell Distribution Width 13.5 % (11.0-16.0); White Blood Count 9.8 X10*3/uL (4.8-10.8)
== END 2021-11-08 11:29 | disposition home or self-care (01) ==
LOC: HO.LAB 11:28
PROVIDERS: PCP Internal Medicine; Visit Provider Physician Assistant Medical
DX: D62 Acute posthemorrhagic anemia (principal)
CPT/HCPCS: 36415; 85027

== ENCOUNTER 2021-11-15 09:00 | Outpatient (REF) | payer BC, SELFPAY ==
[2021-11-15 09:33] LABS: Hematocrit 30.1 % (37.0-47.0); Hemoglobin 9.6 g/dl (12.0-16.0); Mean Corpuscular HGB Conc 31.9 g/dl (31.0-35.0); Mean Corpuscular Hemoglobin 28.2 pg (27.0-33.0); Mean Corpuscular Volume 88.5 fL (80.0-98.0); Mean Platelet Volume 9.9 fL (9.4-12.3); Platelet Count 193 X10*3/uL (160-400); Red Cell Distribution Width 12.9 % (11.0-16.0); White Blood Count 7.3 X10*3/uL (4.8-10.8)
== END 2021-11-15 09:01 | disposition home or self-care (01) ==
LOC: HO.LAB 09:00
PROVIDERS: PCP Internal Medicine; Visit Provider Nurse Practitioner Family
DX: D62 Acute posthemorrhagic anemia (principal); K92.2 Gastrointestinal hemorrhage, unspecified
CPT/HCPCS: 36415; 85027

== ENCOUNTER 2021-11-19 11:07 | Emergency (ER) | payer BC, SELFPAY ==
[2021-11-19 11:18] VITALS: BP 179/70; PULSE 83; RESP 18; TEMP 36.4; O2SAT 99; BMI 27.1
[2021-11-19 11:30] LABS: MANUAL DIFF FLAG NO
[2021-11-19 11:32] LABS: Basophils Absolute Auto 0.1 X10*3/uL (0.0-0.2); Basophils Percent Auto 0.4 % (0-2); Eosinophils Absolute Auto 0.2 X10*3/uL (0.0-0.4); Eosinophils Percent Auto 1.6 % (0-4); Hematocrit 33.8 % (37.0-47.0); Hemoglobin 10.8 g/dl (12.0-16.0); Imm Gran Abs Auto 0.12 X10*3/uL (0.00-0.03); Imm Gran Pct Auto 0.9 % (0.0-0.4); Lymphocytes Absolute Auto 1.7 X10*3/uL (1.2-4.9); Mean Corpuscular Hemoglobin 28.1 pg (27.0-33.0); Mean Corpuscular Volume 87.8 fL (80.0-98.0); Mean Platelet Volume 9.8 fL (9.4-12.3); Monocytes Absolute Auto 0.6 X10*3/uL (0.1-1.2); Monocytes Percent Auto 4.7 % (2-11); Neutrophils Absolute Auto 10.6 x10*3/uL (2.0-8.3); Neutrophils Percent Auto 79.4 % (45-73); Platelet Count 254 X10*3/uL (160-400); Red Blood Count 3.85 X10*6/uL (4.20-5.50); Red Cell Distribution Width 12.9 % (11.0-16.0); White Blood Count 13.3 X10*3/uL (4.8-10.8)
--- NOTE | 2021-11-19 11:41 | ED.GIBLEED ---
HPI - GI Bleed General Chief complaint: GI Bleed Stated complaint: GI bleed Time Seen by Provider: 11/19/21 11:40 Source: patient Mode of arrival: ambulatory Limitations: no limitations History of Present Illness HPI Narrative: patient had 2 formed BMs but passed a tspn of blood x 2. Patient was admitted earlier for a GI bleed this month but no source was ever found. 3 weeks ago had formed stool with blood, 2 weeks ago it was maroon stool not formed for which she was admitted. Patient had colonoscopy and endoscopy but no source was ever found. Onset (ago): month(s) Pain Consistency: intermittent Severity: mild Context: history of GI bleed Related Data Home Medications Medication Instructions Recorded Confirmed ferrous sulfate 324 mg (65 mg 324 mg PO DAILY 08/10/21 11/09/21 iron) tablet,delayed release omeprazole 40 mg capsule,delayed 40 mg PO DAILY 08/10/21 11/09/21 release Previous Rx's Medication Instructions Recorded cholecalciferol (vitamin D3) 25 25 mcg PO DAILY 90 days #90 caps 09/22/20 mcg (1,000 unit) capsule cyanocobalamin (vitamin B-12) 1,000 mcg PO DAILY 90 days #90 tabs 09/22/20 1,000 mcg tablet (Vitamin B-12) atorvastatin 10 mg tablet 10 mg PO DAILY 90 days #90 tabs 09/04/21 raloxifene 60 mg tablet 60 mg PO DAILY 90 days #90 tabs 09/04/21 amlodipine 2.5 mg tablet 2.5 mg PO DAILY 90 days #90 tabs 09/23/21 Allergies Allergy/AdvReac Type Severity Reaction Status Date / Time enflurane [ENFLURANE] Allergy Severe Per Verified 11/19/21 11:18 Patient Liver toxicity piperacillin [Zosyn] Allergy Unknown Unknown Verified 11/19/21 11:18 tazobactam [Zosyn] Allergy Unknown Unknown Verified 11/19/21 11:18 Review of Systems Constitutional: Constitutional: Reports no additional constitutional complaints Eyes: Eyes: Reports no additional eye complaints ENT: Denies dizziness Cardiovascular: Cardiovascular: Reports no additional cardiovascular complaints Respiratory: Respiratory: Reports as per HPI Gastrointestinal: Gastrointestinal: Reports no additional gastrointestinal complaints Genitourinary: Genitourinary: Reports no additional female genitourinary complaints Musculoskeletal: Musculoskeletal: Reports no additional musculoskeletal complaints Integumentary/Breasts: Skin/Breast: Denies rash Neurologic: Reports system reviewed and no additional complaints, except as documented, Denies dizziness and Denies Sensory deficit (Neuro) Psychiatric: Psychiatric: Denies anxiety [facility] Past Medical History Medical History Anemia Sevilla's esophagus Benign essential hypertension Cardiac murmur Gastric ulcer Hiatal hernia History of blood transfusion Osteopenia Overweight (BMI 25.0-29.9) Primary osteoarthritis of hand Pure hypercholesterolemia Vitamin B12 deficiency Vitamin D deficiency Surgical History History of appendectomy History of esophagogastroduodenoscopy (EGD) History of hysterectomy Family History Family History Father Hypertension Mother Stroke Social History Social History Household Members: Significant Other Housing: House Do you presently have visiting nurse or other home services: No Alcohol intake: never Patient Tobacco Use Status: Never used Tobacco e-Cigarette/Vaping Use: Never Used Second Hand Smoke Exposure: No Advance Directives: Yes Advance Directives on File: Yes Advance Directives Date on File: 01/22/21 service: No Current occupational status: retired Cognitive needs: No Hearing needs: No Vision needs: Yes (glasses) Physical Exam Vital Signs: Vital Signs: Last Vital Signs Temp 97.5 F 11/19/21 11:18 Pulse 83 11/19/21 11:18 Resp 18 11/19/21 11:18 BP 179/70 H 11/19/21 11:18 Pulse Ox 99 11/19/21 11:18 O2 Del Method 11/19/21 11:18 BMI result Body Mass Index 27.1 Const: General: healthy appearing Nutritional Appearance: average body habitus Orientation/consciousness: oriented to person and patient oriented x3 Limitations: no limitations HEENT: Head: Yes normal to inspection Ears: external ears normal General nose exam: Normal external nose present Mouth: Normal oral and palatal mucosa present and oropharynx normal Throat: Yes posterior oropharynx normal Eyes: General: appearance normal, both eyes and all related structures Neck: Other: supple Neck: Yes normal visual inspection Chest: Chest palpation & inspection: normal inspection of the chest Resp: Auscultation: clear to auscultation bilaterally Cardio: Other: 4/6SEM Jugular venous distension: no JVD Rate: regular rate Rhythm: regular rhythm GI: Inspection: Yes normal to inspection Palpation (GI): Soft to palpation, nontender and No hepatosplenomegaly present Auscultation: normal bowel sounds : Other: rectal brown stool heme negative General: Yes no CVA tenderness Back/Spine/Pelvis: Back: no CVA tenderness Skin: General skin exam: no rashes or lesions noted Neuro: General: oriented to person and patient oriented x3 Cranial nerves: Yes CN's II-XII intact bilaterally Motor exam (neuro): 5/5 motor strength present throughout Sensory Exam: No Sensory deficit (Neuro) Extrem: General: Yes normal to inspection Psych: Appearance: grossly normal Course Reevaluation(s) Reevaluation #1: Patient has a normal HCT rectal unrevealing will discuss with dr. Herrera Time: 12:08 Reevaluation #2: Discussed with dr. Herrera, will dc with follow up Time: 12:55 [facility] - GI Bleed Lab Data Result diagrams: 11/19/21 11:23 11/19/21 11:25 Labs: Lab Results 11/19/21 11/19/21 11/19/21 Range/Units 11:23 11:23 11:25 WBC 13.3 H (4.8-10.8) X10*3/uL RBC 3.85 L (4.20-5.50) X10*6/uL Hgb 10.8 L (12.0-16.0) g/dl Hct 33.8 L (37.0-47.0) % MCV 87.8 (80.0-98.0) fL MCH 28.1 (27.0-33.0) pg MCHC 32.0 (31.0-35.0) g/dl RDW 12.9 (11.0-16.0) % Plt Count 254 D (160-400) X10*3/uL MPV 9.8 (9.4-12.3) fL Immature Gran % (Auto) 0.9 H (0.0-0.4) % Neut % (Auto) 79.4 H (45-73) % Lymph % (Auto) 13.0 L (20-40) % Toombs % (Auto) 4.7 (2-11) % Eos % (Auto) 1.6 (0-4) % Baso % (Auto) 0.4 (0-2) % Lymph # (Auto) 1.7 (1.2-4.9) X10*3/uL [place]ombs # (Auto) 0.6 (0.1-1.2) X10*3/uL Eos # (Auto) 0.2 (0.0-0.4) X10*3/uL Baso # (Auto) 0.1 (0.0-0.2) X10*3/uL Abs Immat Gran (auto) 0.12 H (0.00-0.03) X10*3/uL Absolute Neuts (auto) 10.6 H (2.0-8.3) x10*3/uL Absolute Nucleated RBC 0.000 (0.0-0.012) X10*3/uL Nucleated RBC % (auto) 0.0 (0.0-0.2) /100WBC Sodium 144 (135-145) mmol/L Potassium 3.7 (3.3-5.1) mmol/L Chloride 109 H (96-108) mmol/L Carbon Dioxide 25 (22-29) mmol/L Anion Gap 14 (12-20) BUN 10 D (9-16) mg/dL Creatinine 0.79 (0.5-1.4) mg/dL Estim Creat Clear Calc 62.1 Estimated GFR > 60 Random Glucose 142 H (60-115) mg/dL Calcium 8.7 (8.4-10.2) mg/dL Total Bilirubin 0.3 (0.0-1.0) mg/dL Direct Bilirubin < 0.2 (0.0-0.5) mg/dL AST 20 (5-31) U/L ALT 15 (0-31) U/L Alkaline Phosphatase 50 (39-117) U/L Total Protein 6.9 (6.5-8.0) g/dL Albumin 3.9 (3.5-5.0) g/dL Lipase 29 (8-78) U/L COVID-19 (TIARA) Negative (Negative) COVID-19 Clin Com See Note Discharge Plan Discharge Clinical Impression: Acute lower GI bleeding Patient Disposition: Home, Self-Care Additional Instructions: continue current meds, follow up with Dr. Herrera, return with worsening bleeding Prescriptions: No Action raloxifene 60 mg tablet 60 mg PO DAILY 90 Days Qty: 90 3RF atorvastatin 10 mg tablet 10 mg PO DAILY 90 Days Qty: 90 3RF amlodipine 2.5 mg tablet 2.5 mg PO DAILY 90 Days Qty: 90 0RF cholecalciferol (vitamin D3) 25 mcg (1,000 unit) capsule 25 mcg PO DAILY 90 Days Qty: 90 3RF cyanocobalamin (vitamin B-12) [Vitamin B-12] 1,000 mcg tablet 1,000 mcg PO DAILY 90 Days Qty: 90 3RF ferrous sulfate 324 mg (65 mg iron) tablet,delayed release (DR/EC) 324 mg PO DAILY omeprazole 40 mg capsule,delayed release(DR/EC) 40 mg PO DAILY Referrals: Emiliano Herrera [Physician] - 1 week
[2021-11-19 11:44] LABS: COVID-19 Test Negative (Negative); IDNOW Serial# 16C4AD1C
[2021-11-19 11:47] LABS: Alanine Aminotransferase 15 U/L (0-31); Albumin Level 3.9 g/dL (3.5-5.0); Alkaline Phosphatase 50 U/L (39-117); Anion Gap 14 (12-20); Aspartate Amino Transferase 20 U/L (5-31); Bilirubin Direct < 0.2 mg/dL (0.0-0.5); Bilirubin Total 0.3 mg/dL (0.0-1.0); Blood Urea Nitrogen 10 mg/dL (9-16); Calcium 8.7 mg/dL (8.4-10.2); Carbon Dioxide 25 mmol/L (22-29); Chloride 109 mmol/L (96-108); Creatinine Clr Calc Pharmacy 62.1; Estimated Glomerular Filt Rate > 60; Glucose Random 142 mg/dL (60-115); Lipase 29 U/L (8-78); Potassium 3.7 mmol/L (3.3-5.1); Sodium 144 mmol/L (135-145); Total Protein 6.9 g/dL (6.5-8.0)
[2021-11-19 13:02] VITALS: BP 155/63; PULSE 67; RESP 18; TEMP 37.1; O2SAT 96
[2021-11-19 13:11] LABS: Appearance Urine Clear; Color Urine Yellow; Glucose Urine UA Negative (Negative); Leukocyte Esterase Urine Moderate (2+) (Negative); Nitrite Urine Negative (Negative); Specific Gravity - Urine <= 1.005 (1.005-1.025); Urine Blood Negative (Negative); Urine Ketones Negative (Negative); Urine Protein Negative (Neg-Trace)
[2021-11-19 13:14] LABS: Bacteria Urine None Seen (None Seen); Hyaline Casts Urine 0-2 /LPF (0-2); RBC Urine 0-2 /HPF (0-2); Squamous Epithelial Cell Urine 0-2 /HPF (0-2); UACC Culture Trigger YES
[2021-11-19 14:13] VITALS: BP 154/60; PULSE 64; RESP 16; O2SAT 96
== END 2021-11-19 14:39 | disposition home or self-care (01) ==
PROVIDERS: Emergency Provider Emergency Medicine; PCP Internal Medicine
DX: K92.2 Gastrointestinal hemorrhage, unspecified (principal); Z20.822 Contact with and (suspected) exposure to COVID-19; I10 Essential (primary) hypertension; E78.00 Pure hypercholesterolemia, unspecified; Z79.899 Other long term (current) drug therapy
CPT/HCPCS: 80053; 81001; 82248; 83690; 85025; 87086; 87635; 99283; 99284

== ENCOUNTER 2021-12-05 10:13 | Outpatient (REF) | payer BC, SELFPAY ==
[2021-12-05 10:37] LABS: MANUAL DIFF FLAG NO
[2021-12-05 11:24] LABS: Appearance Urine Clear; Color Urine Yellow; Glucose Urine UA Negative (Negative); Leukocyte Esterase Urine Small (1+) (Negative); Nitrite Urine Negative (Negative); PH 7.5 (5.0-9.0); UMIC TRIGGER UACC YES; Urine Blood Negative (Negative); Urine Ketones Negative (Negative); Urine Protein Negative (Neg-Trace)
[2021-12-05 11:32] LABS: Basophils Absolute Auto 0.1 X10*3/uL (0.0-0.2); Basophils Percent Auto 0.8 % (0-2); Eosinophils Absolute Auto 0.4 X10*3/uL (0.0-0.4); Hematocrit 37.2 % (37.0-47.0); Hemoglobin 11.7 g/dl (12.0-16.0); Imm Gran Abs Auto 0.02 X10*3/uL (0.00-0.03); Imm Gran Pct Auto 0.3 % (0.0-0.4); Lymphocytes Percent Auto 26.5 % (20-40); Mean Corpuscular HGB Conc 31.5 g/dl (31.0-35.0); Mean Corpuscular Hemoglobin 27.9 pg (27.0-33.0); Mean Corpuscular Volume 88.6 fL (80.0-98.0); Mean Platelet Volume 10.7 fL (9.4-12.3); Monocytes Absolute Auto 0.5 X10*3/uL (0.1-1.2); Monocytes Percent Auto 6.8 % (2-11); Neutrophils Absolute Auto 4.5 x10*3/uL (2.0-8.3); Neutrophils Percent Auto 60.6 % (45-73); Platelet Count 220 X10*3/uL (160-400); Red Cell Distribution Width 12.8 % (11.0-16.0); White Blood Count 7.4 X10*3/uL (4.8-10.8)
[2021-12-05 11:42] LABS: Bacteria Urine None Seen (None Seen); Hyaline Casts Urine 0-2 /LPF (0-2); RBC Urine 0-2 /HPF (0-2); Squamous Epithelial Cell Urine 0-2 /HPF (0-2); UACC Culture Trigger YES; WBC Urine 0-5 /HPF (0-5)
[2021-12-05 12:09] LABS: Alanine Aminotransferase 19 U/L (0-31); Albumin Level 3.9 g/dL (3.5-5.0); Alkaline Phosphatase 47 U/L (39-117); Anion Gap 14 (12-20); Aspartate Amino Transferase 24 U/L (5-31); Bilirubin Total 0.5 mg/dL (0.0-1.0); Blood Urea Nitrogen 11 mg/dL (9-16); Calcium 9.4 mg/dL (8.4-10.2); Carbon Dioxide 27 mmol/L (22-29); Chloride 107 mmol/L (96-108); Cholesterol 157 mg/dL; Estimated Glomerular Filt Rate > 60; Glucose Fasting 82 mg/dL (60-99); HDL Cholesterol 35 mg/dL; LDL Cholesterol Calculated 84 mg/dl; Potassium 4.3 mmol/L (3.3-5.1); Sodium 144 mmol/L (135-145); Triglycerides 190 mg/dL
[2021-12-05 12:21] LABS: TSH reflex Free T4 3.56 uIU/mL (0.32-4.0); Vitamin D 25-OH Total 50.3 ng/mL (>30)
== END 2021-12-05 10:14 | disposition home or self-care (01) ==
LOC: HO.LAB 10:13
PROVIDERS: PCP Internal Medicine; Visit Provider Internal Medicine
DX: I10 Essential (primary) hypertension (principal); E78.00 Pure hypercholesterolemia, unspecified; E55.9 Vitamin D deficiency, unspecified; D62 Acute posthemorrhagic anemia; K92.2 Gastrointestinal hemorrhage, unspecified
CPT/HCPCS: 36415; 80053; 80061; 81001; 82306; 84443; 85025; 87086

== ENCOUNTER 2022-03-26 10:12 | Outpatient (REF) | payer BC, SELFPAY ==
[2022-03-26 10:31] LABS: MANUAL DIFF FLAG NO
[2022-03-26 10:42] LABS: Basophils Percent Auto 0.4 % (0-2); Eosinophils Absolute Auto 0.2 X10*3/uL (0.0-0.4); Eosinophils Percent Auto 3.3 % (0-4); Hematocrit 36.6 % (37.0-47.0); Hemoglobin 11.9 g/dl (12.0-16.0); Imm Gran Abs Auto 0.04 X10*3/uL (0.00-0.03); Imm Gran Pct Auto 0.6 % (0.0-0.4); Lymphocytes Absolute Auto 1.9 X10*3/uL (1.2-4.9); Lymphocytes Percent Auto 25.7 % (20-40); Mean Corpuscular HGB Conc 32.5 g/dl (31.0-35.0); Mean Corpuscular Hemoglobin 28.6 pg (27.0-33.0); Mean Platelet Volume 10.5 fL (9.4-12.3); Monocytes Absolute Auto 0.6 X10*3/uL (0.1-1.2); Monocytes Percent Auto 7.6 % (2-11); Neutrophils Absolute Auto 4.5 x10*3/uL (2.0-8.3); Neutrophils Percent Auto 62.4 % (45-73); Platelet Count 183 X10*3/uL (160-400); Red Blood Count 4.16 X10*6/uL (4.20-5.50); Red Cell Distribution Width 13.8 % (11.0-16.0); White Blood Count 7.2 X10*3/uL (4.8-10.8)
[2022-03-26 11:16] LABS: Alanine Aminotransferase 19 U/L (0-31); Albumin Level 3.8 g/dL (3.5-5.0); Alkaline Phosphatase 52 U/L (39-117); Anion Gap 10 (12-20); Aspartate Amino Transferase 22 U/L (5-31); Bilirubin Total 0.7 mg/dL (0.0-1.0); Blood Urea Nitrogen 16 mg/dL (9-16); Calcium 9.2 mg/dL (8.4-10.2); Carbon Dioxide 28 mmol/L (22-29); Chloride 107 mmol/L (96-108); Cholesterol 170 mg/dL; Estimated Glomerular Filt Rate > 60; Glucose Fasting 90 mg/dL (60-99); HDL Cholesterol 34 mg/dL; LDL Cholesterol Calculated 95 mg/dl; Potassium 3.7 mmol/L (3.3-5.1); Sodium 141 mmol/L (135-145); Total Protein 6.5 g/dL (6.5-8.0); Triglycerides 207 mg/dL
[2022-03-26 11:35] LABS: TSH reflex Free T4 3.63 uIU/mL (0.32-4.0); Vitamin D 25-OH Total 41.9 ng/mL (>30)
[2022-03-26 13:55] LABS: Appearance Urine Clear; Color Urine Yellow; Glucose Urine UA Negative (Negative); Leukocyte Esterase Urine Trace (Negative); Nitrite Urine Negative (Negative); PH 5.5 (5.0-9.0); Specific Gravity - Urine 1.015 (1.005-1.025); UMIC TRIGGER UACC YES; Urine Blood Negative (Negative); Urine Ketones Negative (Negative); Urine Protein Negative (Neg-Trace)
[2022-03-26 14:00] LABS: Bacteria Urine None Seen (None Seen); Hyaline Casts Urine 0-2 /LPF (0-2); RBC Urine 0-2 /HPF (0-2); Squamous Epithelial Cell Urine 0-2 /HPF (0-2); WBC Urine 0-5 /HPF (0-5)
== END 2022-03-26 10:13 | disposition home or self-care (01) ==
LOC: HO.10HDL 10:12
PROVIDERS: Visit Provider Internal Medicine
DX: I10 Essential (primary) hypertension (principal); E78.00 Pure hypercholesterolemia, unspecified; E55.9 Vitamin D deficiency, unspecified
CPT/HCPCS: 36415; 80053; 80061; 81001; 82306; 84443; 85025

== ENCOUNTER 2022-05-24 11:45 | Emergency (ER) | payer BC, SELFPAY ==
--- NOTE | ~2022-05-24 | XR_ITS ---
EXAMINATION: XR CHEST CLINICAL INFORMATION: Cough and fever COMPARISON: 01/21/2021 TECHNIQUE: 2 views of the chest were obtained. FINDINGS: The lungs are well expanded. Hazy opacity at the left base. No pleural effusion or pneumothorax. No edema. The cardiomediastinal silhouette is within normal limits. No acute or suspicious osseous abnormality. Mild degenerative changes of the spine. XR/XR chest 2V IMPRESSION: Hazy left basilar opacity could represent atelectasis or pneumonia.
--- NOTE | 2022-05-24 12:19 | ED_ITS ---
HPI - URI/Sore Throat General Chief Complaint: Upper Respiratory Symptoms <Chrissy Scott CNP - Last Filed: 05/24/22 12:22> Stated Complaint: bad cough,low fever <Chrissy Scott CNP - Last Filed: 05/24/22 12:22> Time Seen by Provider: 05/24/22 12:50 <Chrissy Scott CNP - Last Filed: 05/24/22 12:22> Source: patient <AGATA Velazquez - Last Filed: 05/24/22 18:35> Mode of arrival: ambulatory <AGATA Velazquez Last Filed: 05/24/22 18:35> Limitations: no limitations <AGATA Velazquez Last Filed: 05/24/22 18:35> History of Present Illness HPI Narrative: Patient is a 77 year old assigned female at with a history of HTN and a heart murmur presenting to the emergency department today with a persistent cough. Patient states that over the last 4 days she has had a cough, sore throat, and a low grade fever. Patient denies any dizziness, lightheadedness, abdominal pain, nausea, vomiting, chills, blurry vision, double vision, loss of vision, chest pain, difficulty breathing, shortness of breath, back pain, night sweats, pain with urination, increased urinary frequency, increased urinary urgency, blood in her urine or stool, syncope or a near syncopal episode, recent trauma or falls, bowel incontinence, bladder incontinence, bowel retention, bladder retention, or any other complaints at this time. <AGATA Velazquez - Last Filed: 05/24/22 18:35> MD elicited complaint: fever, cough and sore throat <AGATA Velazquez Last Filed: 05/24/22 18:35> Onset (ago): day(s) (4) <AGATA Velazquez Last Filed: 05/24/22 18:35> Consistency: constant <AGATA Velazquez Last Filed: 05/24/22 18:35> Severity: mild <AGATA Velazquez Last Filed: 05/24/22 18:35> Pain scale (0-10): 2 <AGATA Velazquez Last Filed: 05/24/22 18:35> Able to tolerate fluids by mouth: Yes <AGATA Velazquez - Last Filed: 05/24/22 18:35> Exacerbating factors: nothing <AGATA Velazquez - Last Filed: 05/24/22 18:35> Relieving factors: nothing <AGATA Velazquez - Last Filed: 05/24/22 18:35> Associated symptoms: fever and cough <AGATA Velazquez - Last Filed: 05/24/22 18:35> Treatments prior to arrival: none <AGATA Velazquez - Last Filed: 05/24/22 18:35> Related Data Home Medications: Home Medications Medication Instructions Recorded Confirmed ferrous sulfate 324 mg (65 mg 324 mg PO DAILY 08/10/21 04/26/22 iron) tablet,delayed release omeprazole 40 mg capsule,delayed 40 mg PO DAILY 08/10/21 04/26/22 release Previous Rx's Medication Instructions Recorded cholecalciferol (vitamin D3) 25 25 mcg PO DAILY 90 days #90 caps 09/22/20 mcg (1,000 unit) capsule cyanocobalamin (vitamin B-12) 1,000 mcg PO DAILY 90 days #90 tabs 09/22/20 1,000 mcg tablet (Vitamin B-12) atorvastatin 10 mg tablet 10 mg PO DAILY 90 days #90 tabs 09/04/21 raloxifene 60 mg tablet 60 mg PO DAILY 90 days #90 tabs 09/04/21 amlodipine 2.5 mg tablet 2.5 mg PO DAILY 90 days #90 tabs 03/15/22 albuterol sulfate 90 mcg/actuation 1 inh inhalation QID PRN shortness 05/24/22 aerosol inhaler of breath or wheezing #8.5 grams doxycycline hyclate 100 mg tablet 100 mg PO BID 7 days #14 tabs 05/24/22 prednisone 20 mg tablet 20 mg PO DAILY 7 days #7 tabs 05/24/22 <Chrissy Scott CNP - Last Filed: 05/24/22 12:22> Allergies/Adverse Reactions: Allergies Allergy/AdvReac Type Severity Reaction Status Date / Time enflurane [ENFLURANE] Allergy Severe Per Verified 04/26/22 16:14 Patient Liver toxicity piperacillin [Zosyn] Allergy Unknown Unknown Verified 04/26/22 16:14 tazobactam [Zosyn] Allergy Unknown Unknown Verified 04/26/22 16:14 <Chrissy Scott CNP - Last Filed: 05/24/22 12:22> Review of Systems Constitutional: Constitutional: Reports no additional constitutional complai nts, Denies chills, Reports fever(s) and Denies night sweats <AGATA Velazquez - Last Filed: 05/24/22 18:35> Eyes: Eyes: Reports no additional eye complaints, Denies blurry vision, Denies change in vision, Denies diplopia, Denies eye discharge, Denies loss of vision and Denies eye pain <AGATA Velazquez - Last Filed: 05/24/22 18:35> ENT: Denies dizziness and Reports sore throat <AGATA Velazquez - Last Filed: 05/24/22 18:35> Cardiovascular: Cardiovascular: Reports no additional cardiovascular complaints, Denies chest pain, Denies lightheadedness, Denies Loss of C onsciousness and Denies dyspnea <AGATA Velazquez - Last Filed: 05/24/22 18:35> Respiratory: Respiratory: Reports no additional respiratory complaints, Reports cough and Denies dyspnea <AGATA Velazquez - Last Filed: 05/24/22 18:35> Gastrointestinal: Gastrointestinal: Reports no additional gastrointestinal complaints, Denies abdominal pain, Denies melena, Denies hematochezia, Denies change in bowel habits and Denies change in stool character <AGATA Velazquez - Last Filed: 05/24/22 18:35> Genitourinary: Genitourinary: Denies hematuria, Denies urinary frequency, Denies dysuria, Denies urinary incontinence, Denies urinary hesitancy and Denies urinary urgency <AGATA Velazquez - Last Filed: 05/24/22 18:35> Musculoskeletal: Musculoskeletal: Reports no additional musculoskeletal complaints, Denies numbness and Denies tingling <AGATA Velazquez - Last Filed: 05/24/22 18:35> Neurologic: Denies dizziness, Denies loss of vision, Denies numbness and Denies tingling <AGATA Velazquez - Last Filed: 05/24/22 18:35> Psychiatric: Psychiatric: Reports no additional psychiatric complaints <AGATA Velazquez - Last Filed: 05/24/22 18:35> Endocrine: Endocrine: Reports no additional endocrine complaints <AGATA Velazquez - Last Filed: 05/24/22 18:35> Hematologic/Lymphatic: Hematologic/Lymphatic: Reports no additional hematologic/lymphatic complaints <AGATA Velazquez - Last Filed: 05/24/22 18:35> Allergic/Immunologic: Allergic/Immunologic: Reports no additional allergic/immunologic complaints <AGATA Velazquez - Last Filed: 05/24/22 18:35> [facility] Past Medical History Attestation statement: The following information was validated with the patient. <AGATA Velazquez - Last Filed: 05/24/22 18:35> Source: old records reviewed and nursing notes reviewed <AGATA Velazquez - Last Filed: 05/24/22 18:35> Medical History: Medical History Anemia Sevilla's esophagus Benign essential hypertension Cardiac murmur Gastric ulcer Hiatal hernia History of blood transfusion Osteopenia Overweight (BMI 25.0-29.9) Primary osteoarthritis of hand Pure hypercholesterolemia Vitamin B12 deficiency Vitamin D deficiency <Chrissy Scott CNP - Last Filed: 05/24/22 12:22> Surgical History: Surgical History History of appendectomy History of esophagogastroduodenoscopy (EGD) History of hysterectomy <Chrissy Scott CNP - Last Filed: 05/24/22 12:22> Family History Family History: Family History Father Hypertension Mother Stroke <Chrissy Scott CNP - Last Filed: 05/24/22 12:22> Social History Social History: Social History Household Members: Significant Other Housing: House Do you presently have visiting nurse or other home services: No Alcohol intake: never Patient Tobacco Use Status: Never used Tobacco e-Cigarette/Vaping Use: Never Used Second Hand Smoke Exposure: No Advance Directives: Yes Advance Directives on File: Yes Advance Directives Date on File: 01/22/21 service: No Current occupational status: retired Cognitive needs: No Hearing needs: No Vision needs: Yes (glasses) <Chrissy Scott CNP - Last Filed: 05/24/22 12:22> Physical Exam Vital Signs: Vital Signs: Last Vital Signs Temp 97.7 F 05/24/22 12:20 Pulse 100 05/24/22 12:20 Resp 20 05/24/22 12:20 BP 211/67 H 05/24/22 12:20 Pulse Ox 96 05/24/22 12:20 O2 Del Method 05/24/22 12:20 BMI result Body Mass Index 26.6 <Chrissy Scott CNP - Last Filed: 05/24/22 12:22> Vital Signs: Last Vital Signs Temp 97.7 F 05/24/22 12:20 Pulse 100 05/24/22 12:20 Resp 20 05/24/22 12:20 BP 211/67 H 05/24/22 12:20 Pulse Ox 96 05/24/22 12:20 O2 Del Method 05/24/22 12:20 BMI result Body Mass Index 26.6 <AGATA Velazquez - Last Filed: 05/24/22 18:35> Const: General: cooperative, no acute distress, alert and awake <AGATA Velazquez - Last Filed: 05/24/22 18:35> Nutritional Appearance: well nourished <AGATA Velazquez - Last Filed: 05/24/22 18:35> Orientation/consciousness: patient oriented x3 <AGATA Velazquez - Last Filed: 05/24/22 18:35> Limitations: no limitations <AGATA Velazquez - Last Filed: 05/24/22 18: 35> HEENT: Head: Yes normal to inspection and Yes atraumatic <AGATA Velazquez - Last Filed: 05/24/22 18:35> Ears: hearing grossly normal bilaterally and external ears normal <AGATA Velazquez - Last Filed: 05/24/22 18:35> General nose exam: Normal external nose present, no nasal discharge noted and no epistaxis <AGATA Velazquez - Last Filed: 03/03/23 18:35> Face and sinus: Yes normal facial exam, No abrasion and No laceration <AGATA Velazquez - Last Filed: 05/24/22 18:35> Mouth: Normal oral and palatal mucosa present, no drooling and no muffled voice <Fallon Johnson DE - Last Filed: 05/24/22 18:35> Eyes: General: appearance normal, both eyes and all related structures <AGATA Velazquez - Last Filed: 05/24/22 18:35> Periorbital: periorbital findings normal <Fallon Johnson DE - Last Filed: 05/24/22 18:35> Eyelids: Yes eyelids normal <Fallon Johnson DE - Last Filed: 05/24/22 18: 35> Conjunctivae: conjunctivae normal <Fallon Johnson DE - Last Filed: 05/24/22 18:35> Pupils: Equal, round and reactive pupils present <AGATA Velazquez - Last Filed: 05/24/22 18:35> EOM: EOMs intact bilaterally <Fallon Johnson DE - Last Filed: 05/24/22 18:35> Neck: Neck: Yes normal visual inspection, Yes full ROM and Yes no lymphadenopathy <Fallon Johnson DE - Last Filed: 05/24/22 18:35> Chest: Chest palpation & inspection: normal inspection of the chest <Hector Johnson DE - Last Filed: 05/24/22 18:35> Resp: Effort & Inspection: normal respiratory effort and able to speak in complete sentences <AGATA Velazquez - Last Filed: 05/24/22 18:35> Auscultation: clear to auscultation bilaterally <Fallon Johnson DE - Last Filed: 05/24/22 18:35> Cardio: Rate: regular rate <AGATA Velazquez - Last Filed: 05/24/22 18:35> Rhythm: regular rhythm <AGATA Velazquez - Last Filed: 05/24/22 18:35> Heart sounds: Murmur heart sound present continuous <AGATA Velazquez - Last Filed: 05/24/22 18:35> GI: Inspection: Yes normal to inspection <Fallon Johnson PA - Last Filed: 05/24/22 18:35> Palpation (GI): Soft to palpation, not firm, nontender and no guarding <AGATA Velazquez - Last Filed: 05/24/22 18:35> Neuro: General: patient oriented x3 and moves all extremities <AGATA Velazquez - Last Filed: 05/24/22 18:35> Cranial nerves: Yes Equal, round and reactive pupils present <Fallon Johnson PA - Last Filed: 05/24/22 18:35> Cognition (Neuro): normal cognition <Fallon Johnson PA - Last Filed: 05/24/22 18:35> Motor exam (neuro): 5/5 motor strength present throughout <Fallon Johnson PA - Last Filed: 05/24/22 18:35> Sensory Exam: Normal double simultaneous stimulation for sensation <Fallon Johnson PA - Last Filed: 05/24/22 18:35> Coordination: [id number] test normal <AGATA Velazquez - Last Filed: 05/24/22 18:35> Extrem: General: Yes normal to inspection, Yes full ROM and Yes capillary refill normal <Fallon Johnson PA - Last Filed: 05/24/22 18:35> Psych: Appearance: grossly normal <AGATA Velazquez - Last Filed: 05/24/22 18:35> Mental Status: mental status grossly normal <AGATA Velazquez - Last Filed: 05/24/22 18:35> Affect: normal affect <AGATA Velazquez - Last Filed: 05/24/22 18:35> Attitude: cooperative <AGATA Velazquez - Last Filed: 05/24/22 18:35> Thought process: Normal thought process present <AGATA Velazquez - Last Filed: 05/24/22 18:35> Thought content: Normal thought content present <AGATA Velazquez - Last Filed: 05/24/22 18:35> Insight: Good insight present (Psych) <AGATA Velazquez - Last Filed: 05/24/22 18:35> Course Course Course Narrative: This is an RME: Additional HPI, ROS, PE not included below will be deferred to primary provider. Patient is a 77-year-old female who presents emergency department for evaluation of URI symptoms. Complaining of intermittently productive cough with yellow phlegm, sore throat, low grade fevers x 5 days. Called PCP yesterday, was given an appointment today, and due to provider illness, her appointment was cancelled. She was unable to be seen at urgent care today. Plan: labs, CXR, viral testing. placed back in waiting room pending bed availability <Chrissy Scott CNP - Last Filed: 05/24/22 12:22> Medical Decision Making Medical Decision Making [facility] Narrative: Patient is a 77 year old assigned female at with a history of a murmur and HTN presenting to the emergency department today with a cough, fever, and a sore throat. Patient's physical exam showed a heart murmur but was otherwise unremarkable. Patient's blood work was unremarkable. Patient's chest x-ray showed a left sided pneumonia. I explained my physical exam findings as well as all test results to the patient. I answered all questions asked by the patient. I stressed the importance of the patient taking her medication as prescribed. I stressed the importance of the patient following up with her primary care provider. I stressed the importance of the patient returning to the emergency department immediately if her symptoms were to worsen or if she were to develop any dizziness, shortness of breath, difficulty breathing, chest pain, blurry vision, loss of vision, nausea, vomiting, abdominal pain, fever, chills, back pain, or any other complaints. Patient verbalized agreement and understanding with this treatment plan and discharge. <AGATA Velazquez - Last Filed: 05/24/22 18:35> Differential Diagnosis Differential Diagnoses: The differential diagnosis associated with the presentation includes <AGATA Velazquez - Last Filed: 05/24/22 18:35> pneumonia, cough <AGATA Velazquez - Last Filed: 05/24/22 18:35> Lab Data [facility] Lab Attestation statement: I reviewed the patient's lab results. <AGATA Velazquez - Last Filed: 05/24/22 18:35> Result Diagrams: 05/24/22 12:51 05/24/22 12:51 <Chrissy Scott CNP - Last Filed: 05/24/22 12:22> Labs: Lab Results 05/24/22 05/24/22 05/24/22 Range/Units 12:51 12:51 12:51 WBC 8.2 (4.8-10.8) X10*3/uL RBC 3.95 L (4.20-5.50) X10*6/uL Hgb 11.3 L (12.0-16.0) g/dl Hct 34.6 L (37.0-47.0) % MCV 87.6 (80.0-98.0) fL MCH 28.6 (27.0-33.0) pg MCHC 32.7 (31.0-35.0) g/dl RDW 12.3 (11.0-16.0) % Plt Count 175 (160-400) X10*3/uL MPV 10.0 (9.4-12.3) fL Immature Gran % (Auto) 0.2 (0.0-0.4) % Neut % (Auto) 79.5 H (45-73) % Lymph % (Auto) 12.9 L (20-40) % Porter % (Auto) 7.1 (2-11) % Eos % (Auto) 0.1 (0-4) % Baso % (Auto) 0.2 (0-2) % Lymph # (Auto) 1.1 L (1.2-4.9) X10*3/uL Porter # (Auto) 0.6 (0.1-1.2) X10*3/uL Eos # (Auto) 0.0 (0.0-0.4) X10*3/uL Baso # (Auto) 0.0 (0.0-0.2) X10*3/uL Abs Immat Gran (auto) 0.02 (0.00-0.03) X10*3/uL Absolute Neuts (auto) 6.5 (2.0-8.3) x10*3/uL Absolute Nucleated RBC 0.000 (0.0-0.012) X10*3/uL Nucleated RBC % (auto) 0.0 (0.0-0.2) /100WBC Sodium 134 L (135-145) mmol/L Potassium 4.1 (3.3-5.1) mmol/L Chloride 102 (96-108) mmol/L Carbon Dioxide 24 (22-29) mmol/L Anion Gap 12 (12-20) BUN 18 H (9-16) mg/dL Creatinine 0.77 (0.5-1.4) mg/dL Estim Creat Clear Calc 62.2 Estimated GFR > 60 Random Glucose 104 (60-115) mg/dL Calcium 8.3 L D (8.4-10.2) mg/dL Total Bilirubin 0.6 (0.0-1.0) mg/dL AST 27 (5-31) U/L ALT 17 (0-31) U/L Alkaline Phosphatase 43 (39-117) U/L Total Protein 6.3 L (6.5-8.0) g/dL Albumin 3.7 (3.5-5.0) g/dL COVID-19 (TIARA) (Negative) COVID-19 Clin Com Influenza Type A (MAUDE) Negative (Negative) Influenza Type B (MAUDE) Negative (Negative) Influenza A & B Note See Note 05/24/22 Range/Units 12:51 WBC (4.8-10.8) X10*3/uL RBC (4.20-5.50) X10*6/uL Hgb (12.0-16.0) g/dl Hct (37.0-47.0) % MCV (80.0-98.0) fL MCH (27.0-33.0) pg MCHC (31.0-35.0) g/dl RDW (11.0-16.0) % Plt Count (160-400) X10*3/uL MPV (9.4-12.3) fL Immature Gran % (Auto) (0.0-0.4) % Neut % (Auto) (45-73) % Lymph % (Auto) (20-40) % Porter % (Auto) (2-11) % Eos % (Auto) (0-4) % Baso % (Auto) (0-2) % Lymph # (Auto) (1.2-4.9) X10*3/uL Porter # (Auto) (0.1-1.2) X10*3/uL Eos # (Auto) (0.0-0.4) X10*3/uL Baso # (Auto) (0.0-0.2) X10*3/uL Abs Immat Gran (auto) (0.00-0.03) X10*3/uL Absolute Neuts (auto) (2.0-8.3) x10*3/uL Absolute Nucleated RBC (0.0-0.012) X10*3/uL Nucleated RBC % (auto) (0.0-0.2) /100WBC Sodium (135-145) mmol/L Potassium (3.3-5.1) mmol/L Chloride (96-108) mmol/L Carbon Dioxide (22-29) mmol/L Anion Gap (12-20) BUN (9-16) mg/dL Creatinine (0.5-1.4) mg/dL Estim Creat Clear Calc Estimated GFR Random Glucose (60-115) mg/dL Calcium (8.4-10.2) mg/dL Total Bilirubin (0.0-1.0) mg/dL AST (5-31) U/L ALT (0-31) U/L Alkaline Phosphatase (39-117) U/L Total Protein (6.5-8.0) g/dL Albumin (3.5-5.0) g/dL COVID-19 (TIARA) Negative (Negative) COVID-19 Clin Com See Note Influenza Type A (MAUDE) (Negative) Influenza Type B (MAUDE) (Negative) Influenza A & B Note <Chrissy Scott, PYROGLAZER - Last Filed: 05/24/22 12:22> Lab Results 05/24/22 05/24/22 05/24/22 Range/Units 12:51 12:51 12:51 WBC 8.2 (4.8-10.8) X10*3/uL RBC 3.95 L (4.20-5.50) X10*6/uL Hgb 11.3 L (12.0-16.0) g/dl Hct 34.6 L (37.0-47.0) % MCV 87.6 (80.0-98.0) fL MCH 28.6 (27.0-33.0) pg MCHC 32.7 (31.0-35.0) g/dl RDW 12.3 (11.0-16.0) % Plt Count 175 (160-400) X10*3/uL MPV 10.0 (9.4-12.3) fL Immature Gran % (Auto) 0.2 (0.0-0.4) % Neut % (Auto) 79.5 H (45-73) % Lymph % (Auto) 12.9 L (20-40) % Porter % (Auto) 7.1 (2-11) % Eos % (Auto) 0.1 (0-4) % Baso % (Auto) 0.2 (0-2) % Lymph # (Auto) 1.1 L (1.2-4.9) X10*3/uL Porter # (Auto) 0.6 (0.1-1.2) X10*3/uL Eos # (Auto) 0.0 (0.0-0.4) X10*3/uL Baso # (Auto) 0.0 (0.0-0.2) X10*3/uL Abs Immat Gran (auto) 0.02 (0.00-0.03) X10*3/uL Absolute Neuts (auto) 6.5 (2.0-8.3) x10*3/uL Absolute Nucleated RBC 0.000 (0.0-0.012) X10*3/uL Nucleated RBC % (auto) 0.0 (0.0-0.2) /100WBC Sodium 134 L (135-145) mmol/L Potassium 4.1 (3.3-5.1) mmol/L Chloride 102 (96-108) mmol/L Carbon Dioxide 24 (22-29) mmol/L Anion Gap 12 (12-20) BUN 18 H (9-16) mg/dL Creatinine 0.77 (0.5-1.4) mg/dL Estim Creat Clear Calc 62.2 Estimated GFR > 60 Random Glucose 104 (60-115) mg/dL Calcium 8.3 L D (8.4-10.2) mg/dL Total Bilirubin 0.6 (0.0-1.0) mg/dL AST 27 (5-31) U/L ALT 17 (0-31) U/L Alkaline Phosphatase 43 (39-117) U/L Total Protein 6.3 L (6.5-8.0) g/dL Albumin 3.7 (3.5-5.0) g/dL COVID-19 (TIARA) (Negative) COVID-19 Clin Com Influenza Type A (MAUDE) Negative (Negative) Influenza Type B (MAUDE) Negative (Negative) Influenza A & B Note See Note 05/24/22 Range/Units 12:51 WBC (4.8-10.8) X10*3/uL RBC (4.20-5.50) X10*6/uL Hgb (12.0-16.0) g/dl Hct (37.0-47.0) % MCV (80.0-98.0) fL MCH (27.0-33.0) pg MCHC (31.0-35.0) g/dl RDW (11.0-16.0) % Plt Count (160-400) X10*3/uL MPV (9.4-12.3) fL Immature Gran % (Auto) (0.0-0.4) % Neut % (Auto) (45-73) % Lymph % (Auto) (20-40) % Porter % (Auto) (2-11) % Eos % (Auto) (0-4) % Baso % (Auto) (0-2) % Lymph # (Auto) (1.2-4.9) X10*3/uL Porter # (Auto) (0.1-1.2) X10*3/uL Eos # (Auto) (0.0-0.4) X10*3/uL Baso # (Auto) (0.0-0.2) X10*3/uL Abs Immat Gran (auto) (0.00-0.03) X10*3/uL Absolute Neuts (auto) (2.0-8.3) x10*3/uL Absolute Nucleated RBC (0.0-0.012) X10*3/uL Nucleated RBC % (auto) (0.0-0.2) /100WBC Sodium (135-145) mmol/L Potassium (3.3-5.1) mmol/L Chloride (96-108) mmol/L Carbon Dioxide (22-29) mmol/L Anion Gap (12-20) BUN (9-16) mg/dL Creatinine (0.5-1.4) mg/dL Estim Creat Clear Calc Estimated GFR Random Glucose (60-115) mg/dL Calcium (8.4-10.2) mg/dL Total Bilirubin (0.0-1.0) mg/dL AST (5-31) U/L ALT (0-31) U/L Alkaline Phosphatase (39-117) U/L Total Protein (6.5-8.0) g/dL Albumin (3.5-5.0) g/dL COVID-19 (TIARA) Negative (Negative) COVID-19 Clin Com See Note Influenza Type A (MAUDE) (Negative) Influenza Type B (MAUDE) (Negative) Influenza A & B Note <AGATA Velazquez - Last Filed: 05/24/22 18:35> Independent Interpretation I performed an independent interpretation of an: Plain X-Ray <AGATA Velazquez Last Filed: 05/24/22 18:35> Interpretation: My interpretation is in agreement with the radiologist's impression of this imaging study. EXAMINATION: XR CHEST CLINICAL INFORMATION: Cough and fever COMPARISON: 01/21/2021 TECHNIQUE: 2 views of the chest were obtained. FINDINGS: The lungs are well expanded. Hazy opacity at the left base. No pleural effusion or pneumothorax. No edema. The cardiomediastinal silhouette is within normal limits. No acute or suspicious osseous abnormality. Mild degenerative changes of the spine. XR/XR chest 2V IMPRESSION: Hazy left basilar opacity could represent atelectasis or pneumonia. Dictated By: Da Davila MD Signed By: Electronically signed by Da Davila MD 05/24/22 1326 <AGATA Velazquez Last Filed: 05/24/22 18:35> Discharge Plan Discharge Clinical Impression: Pneumonia <Chrissy Scott CNP - Last Filed: 05/24/22 12:22> Patient Disposition: Home, Self-Care <Chrissy Scott CNP - Last Filed: 05/24/22 12:22> Instructions: Pneumonia (ED) <Chrissy Scott CNP - Last Filed: 05/24/22 12:22> Additional Instructions: Follow up with your primary care provider. Return to the emergency department immediately if your symptoms worsen or if you develop any dizziness, shortness of breath, difficulty breathing, chest pain, blurry vision, loss of vision, nausea, vomiting, abdominal pain, fever, chills, back pain, or any other complaints. <Chrissy Scott CNP - Last Filed: 05/24/22 12:22> Prescriptions: New prednisone 20 mg tablet 20 mg PO DAILY 7 Days Qty: 7 0RF doxycycline hyclate 100 mg tablet 100 mg PO BID 7 Days Qty: 14 0RF albuterol sulfate 90 mcg/actuation HFA aerosol inhaler 1 inh inhalation QID PRN (Reason: shortness of breath or wheezing) Qty: 8.5 0RF No Action raloxifene 60 mg tablet 60 mg PO DAILY 90 Days Qty: 90 3RF atorvastatin 10 mg tablet 10 mg PO DAILY 90 Days Qty: 90 3RF amlodipine 2.5 mg tablet 2.5 mg PO DAILY 90 Days Qty: 90 0RF cholecalciferol (vitamin D3) 25 mcg (1,000 unit) capsule 25 mcg PO DAILY 90 Days Qty: 90 3RF cyanocobalamin (vitamin B-12) [Vitamin B-12] 1,000 mcg tablet 1,000 mcg PO DAILY 90 Days Qty: 90 3RF ferrous sulfate 324 mg (65 mg iron) tablet,delayed release (DR/EC) 324 mg PO DAILY omeprazole 40 mg capsule,delayed release(DR/EC) 40 mg PO DAILY <Chrissy Scott CNP - Last Filed: 05/24/22 12:22> Referrals: Colt Teran MD [Primary Care Provider] - <Chrissy Scott CNP - Last Filed: 05/24/22 12:22> Interventions: ED Discharge Assessment Last Done: 05/24/22 14:21 <Chrissy Scott CNP - Last Filed: 05/24/22 12:22> Discharge Date/Time: 05/24/22 14:22 <Chrissy Scott CNP - Last Filed: 05/24/22 12:22> Print Language: Macedonian <Chrissy Scott CNP - Last Filed: 05/24/22 12:22>
[2022-05-24 12:20] VITALS: BP 211/67; PULSE 100; RESP 20; TEMP 36.5; O2SAT 96; BMI 26.6
[2022-05-24 12:56] LABS: MANUAL DIFF FLAG NO
[2022-05-24 12:58] LABS: Basophils Percent Auto 0.2 % (0-2); Eosinophils Percent Auto 0.1 % (0-4); Hematocrit 34.6 % (37.0-47.0); Hemoglobin 11.3 g/dl (12.0-16.0); Imm Gran Abs Auto 0.02 X10*3/uL (0.00-0.03); Imm Gran Pct Auto 0.2 % (0.0-0.4); Lymphocytes Absolute Auto 1.1 X10*3/uL (1.2-4.9); Lymphocytes Percent Auto 12.9 % (20-40); Mean Corpuscular HGB Conc 32.7 g/dl (31.0-35.0); Mean Corpuscular Hemoglobin 28.6 pg (27.0-33.0); Mean Corpuscular Volume 87.6 fL (80.0-98.0); Monocytes Absolute Auto 0.6 X10*3/uL (0.1-1.2); Monocytes Percent Auto 7.1 % (2-11); Neutrophils Absolute Auto 6.5 x10*3/uL (2.0-8.3); Neutrophils Percent Auto 79.5 % (45-73); Platelet Count 175 X10*3/uL (160-400); Red Blood Count 3.95 X10*6/uL (4.20-5.50); Red Cell Distribution Width 12.3 % (11.0-16.0); White Blood Count 8.2 X10*3/uL (4.8-10.8)
[2022-05-24 13:11] LABS: Alanine Aminotransferase 17 U/L (0-31); Albumin Level 3.7 g/dL (3.5-5.0); Alkaline Phosphatase 43 U/L (39-117); Anion Gap 12 (12-20); Aspartate Amino Transferase 27 U/L (5-31); Bilirubin Total 0.6 mg/dL (0.0-1.0); Blood Urea Nitrogen 18 mg/dL (9-16); Calcium 8.3 mg/dL (8.4-10.2); Carbon Dioxide 24 mmol/L (22-29); Chloride 102 mmol/L (96-108); Creatinine Clr Calc Pharmacy 62.2; Estimated Glomerular Filt Rate > 60; Glucose Random 104 mg/dL (60-115); Potassium 4.1 mmol/L (3.3-5.1); Sodium 134 mmol/L (135-145); Total Protein 6.3 g/dL (6.5-8.0)
[2022-05-24 13:15] LABS: IDNOW Serial# BCCEAD1C; Influenza B2 Negative (Negative)
[2022-05-24 13:16] LABS: COVID-19 Test Negative (Negative); IDNOW Serial# 16C4AD1C; Influenza A Negative (Negative)
== END 2022-05-24 14:22 | disposition home or self-care (01) ==
PROVIDERS: Nurse Practitioner Family; Emergency Provider Emergency Medicine Emergency Medical Services; PCP Internal Medicine
DX: J18.9 Pneumonia, unspecified organism (principal); R50.9 Fever, unspecified; R05.9 Cough, unspecified; I10 Essential (primary) hypertension; Z20.822 Contact with and (suspected) exposure to COVID-19; Z20.828 Contact with and (suspected) exposure to other viral communicable diseases; Z79.899 Other long term (current) drug therapy
CPT/HCPCS: 71046; 80053; 85025; 87502; 87635; 99282; 99283

== ENCOUNTER 2022-06-05 07:09 | Inpatient (IN) | payer BC, SELFPAY ==
[2022-06-05] VITALS (9 sets, daily range): BP systolic 101–137; BP diastolic 59–87; PULSE 87–160; RESP 15–22; TEMP 36.2–37.1; O2SAT 92–98; BMI 26.2
--- NOTE | 2022-06-05 | ECG_ITS ---
Test Reason : repeat, abnormal ekg Blood Pressure : / mmHG Vent. Rate : 106 BPM Atrial Rate : 000 BPM P-R Int : 000 ms QRS Dur : 094 ms QT Int : 354 ms P-R-T Axes : 000 020 195 degrees QTc Int : 470 ms Atrial fibrillation with rapid ventricular response Left ventricular hypertrophy with repolarization abnormality ( R in aVL , Sokolow-Gtz , Segundo product ) Abnormal ECG When compared with ECG of 05-JUN-2022 07:29, Vent. rate has decreased BY 58 BPM Referred By: Gabriela Christianson Electronically Signed By:Mike Marshall
--- NOTE | ~2022-06-05 | XR_ITS ---
EXAMINATION: XR CHEST CLINICAL INFORMATION: Pneumonia COMPARISON: 05/24/2022 TECHNIQUE: Frontal view of the chest was obtained. FINDINGS: No significant abnormality is noted involving the heart, lungs, mediastinum, bony thorax or soft tissues. There has been resolution of the previously noted left basilar opacity XR/XR chest 1V IMPRESSION: No acute intrathoracic disease. Resolved left lower lobe pneumonia
--- NOTE | ~2022-06-05 | XR_ITS ---
EXAMINATION: XR CHEST CLINICAL INFORMATION: Shortness of breath. COMPARISON: 06/05/[address] scan dated 06/05/2022. TECHNIQUE: Frontal view of the chest was obtained. FINDINGS: There is a very small right pleural effusion with blunting of the right costophrenic angle and mild atelectasis. A small right apical calcified granulomas noted. The lungs are otherwise clear. The heart and mediastinal structures are unremarkable. XR/XR chest 1V IMPRESSION: Very small right pleural effusion and mild right basilar atelectasis correlating with CT findings. No new abnormality.
--- NOTE | ~2022-06-05 | CT_ITS ---
EXAMINATION: CT CHEST WITHOUT CONTRAST CLINICAL INFORMATION: Fever, cough, bibasilar crackles COMPARISON: Portable chest 06/05/2022, 05/24/2022, CT abdomen 01/22/2011 TECHNIQUE: Multidetector volumetric CT imaging of the chest is performed without intravenous contrast. Axial MIP volume rendering provided. Sagittal and coronal reformatted images were obtained. This CT examination was performed using dose optimization techniques as appropriate, variously including the following: *Automated exposure control *Adjustment of mA and/or kV according to patient size (this includes techniques or standardized protocols for targeted exams where dose is matched to indication/reason for exam; i.e. extremities or head) *Use of iterative reconstruction technique DLP: 202 mGy-cm FINDINGS: LUNGS: There is patchy airspace consolidation and groundglass opacity right lower lobe with some volume loss/atelectasis, new finding from chest radiograph 05/24/2022. There is minor subsegmental atelectasis left posterior basal lower lobe. The lungs otherwise clear. The central airways are clear and there is no endobronchial lesion or bronchiectasis. Small subpleural calcified granuloma present right posterior apex. Otherwise, no pulmonary nodule. MEDIASTINUM: No hilar or mediastinal adenopathy. No pericardial effusion. Thoracic aorta normal in caliber. CORONARY ARTERY CALCIFICATION: Present on this exam. PLEURA: Small right effusion. No left effusion. No pneumothorax or pleural thickening. AXILLA: No lymphadenopathy. UPPER ABDOMEN: Unremarkable. OSSEOUS STRUCTURES: Unremarkable. CT/CT chest wo IV con IMPRESSION: -Patchy airspace consolidation and groundglass opacity right lower lobe with some volume loss/atelectasis, new from chest radiograph 05/24/2022. Small right effusion. -Minor subsegmental atelectasis left lower lobe.
--- NOTE | 2022-06-05 07:00 | CA_ITS ---
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 - High gradient across LVOT. No systolic anterior motion of mitral valve, no LVOT obstruction. - Peak gradient LVOT with Valsalva 118 mm Hg. - Normal right ventricular cavity size and systolic function. Findings Left Ventricle Normal left ventricular cavity size. There is severely increased left ventricular wall thickness. The left ventricular systolic function is hyperdynamic. The visually estimated ejection fraction is >70%. There is no evidence of regional wall motion abnormalities. There is no dynamic left ventricular obstruction. There is dynamic mid left ventricular obstruction. Diastolic function is indeterminate on the basis of available data. Right Ventricle Normal right ventricular cavity size and systolic function. Atria The left atrium is severely dilated. Aortic Valve There is mild calcification of the aortic valve. There is mild to moderate aortic valve stenosis. There is no aortic valve regurgitation. Mitral Valve There is mild mitral annular calcification. There is mild mitral valve regurgitation. There is no mitral valve stenosis. Pulmonic Valve The pulmonic valve was not well visualized. Tricuspid Valve Normal tricuspid valve structure. There is mild tricuspid valve regurgitation. Normal right atrial pressure. Moderate pulmonary hypertension is present. Great Vessels All visible segments of the aorta are normal in size. Venous The inferior vena cava is normal in size and collapses greater than 50% with inspiration. Pericardium/Pleural There is no evidence of pericardial effusion. Measurements 2D Linear Measurements IVSd: 1.44 0.6-0.9/0.6-1.0 cm LVIDd: 3.65 3.9-5.3/4.2-5.9 cm LVIDd Index: 1.76 2.4-3.2/2.2-3.1 cm/m2 LVIDs: 2.79 2.0-3.6 cm LVPWd: 1.38 0.7-1.1 cm Ao Root: 2.70 2.1-3.5 cm LA Diam: 4.70 2.7-3.8/3.0-4.0 cm LAIDs Index: 2.27 1.5-2.3 cm/m2 LV Mass: 231.10 67-162/88-224 g LV Mass Index: 111.64 43-95/49-115 g/m2 LVOT Diam: 2.00 3.0+(-)1.3 cm 2D Volumes LA Vol: 50.70 Mitral Valve MV Pk E: 1.40 MV Decel Time: 173.00 E'Lateral: 10.90 E'Medial: 7.62 E/E' Med: 18.40 E/E' Lat: 12.80 PHT: 51.00 MVA PHT: 4.31 Decel [place]: 8.05 Aortic Valve AoV Pk [place]: 2.94 AoV Mn [place]: 1.73 AoV VTI: 0.44 AoV Pk Grad: 35.00 Aov Mn Grad: 15.00 SHAHBAZ Cont.VTI: 1.92 LVOT LVOT Pk [place]: 1.84 LVOT Mn [place]: 1.15 LVOT VTI: 0.27 LVOT Pk Grad: 14.00 LVOT Mn Grad: 6.00 LVOT Diam: 2.00 LVOT Area: 3.14 Diastolic Function MV Pk E: 1.40 E'Medial: 7.62 E/E' Med: 18.40 E' Laterial: 10.90 E/E' Lat: 12.80 Right Ventricle TAPSE (mm): 20.00 TVS' [place]: 9.00 Tricuspid Valve TR Pk [place]: 3.43 TR Pk Grad: 47.00 RA Press: 3.00 RVSP: 50.00 Great Vessels Aorta Ao Root-2D: 2.70 2.0-3.7 cm Ao Asc: 2.80 2.1-3.4 cm Pulmonary Valve PV Pk [place]: 1.33 Peak PV Grad: 7.00 Updated in Other Vendor System with Status of Final Mike Marshall MD electronically signed on 06/05/2022 7:20:35 PM with status of Final
--- NOTE | 2022-06-05 07:26 | ECG_ITS ---
Test Reason : TACHYCARDIA Blood Pressure : / mmHG Vent. Rate : 164 BPM Atrial Rate : 000 BPM P-R Int : 000 ms QRS Dur : 096 ms QT Int : 298 ms P-R-T Axes : 000 009 191 degrees QTc Int : 492 ms Atrial fibrillation with rapid ventricular response Voltage criteria for left ventricular hypertrophy ( R in aVL , Sokolow-Gtz , Segundo product ) Marked ST abnormality, possible inferolateral subendocardial injury Abnormal ECG When compared with ECG of 29-OCT-2021 21:57, Atrial fibrillation has replaced Sinus rhythm Vent. rate has increased BY [address] now depressed in Lateral leads Referred By: Generic ED Physician Electronically Signed By:Mike Marshall
--- NOTE | 2022-06-05 07:30 | PC.NURSE ---
pt alert and oriented, skin pwd, respirations even and unlabored, with intermittent dry cough, ls clear, pt reports being dx with left sided pneumonia and since then just cant bounce back. pt is having right sided rib pain and feeling generally weak, on the monitor pt was found to be in the hr of 150-160, pt denies chest pain or feeling of palpitations.
--- NOTE | 2022-06-05 07:39 | ED.GENADULT ---
HPI - General Adult General Chief complaint: Dyspnea Stated complaint: Pneumonia Time Seen by Provider: 06/05/22 07:33 Source: patient Mode of arrival: ambulatory Limitations: no limitations History of Present Illness HPI narrative: This is a 77 years old female presented to emergency department complaining of generalized weakness cough. She was seen on May 23 in the emergency department diagnosed with pneumonia discharged on prednisone and the doxycycline. She states she is not feeling any better. She was found in triage to be tachycardic with heart rate of about 160. Denies any fever any vomiting any diarrhea. Onset (ago): week(s) (1) Radiation: non-radiation Severity: moderate Relieving factors: none Exacerbating factors: none Associated symptoms: cough and shortness of breath Related Data Home Medications Medication Instructions Recorded Confirmed ferrous sulfate 324 mg (65 mg 324 mg PO DAILY 08/10/21 06/05/22 iron) tablet,delayed release omeprazole 40 mg capsule,delayed 40 mg PO DAILY@0630 08/10/21 06/05/22 release atorvastatin 10 mg tablet 10 mg PO BEDTIME 06/05/22 06/05/22 Previous Rx's Medication Instructions Recorded cholecalciferol (vitamin D3) 25 25 mcg PO DAILY 90 days #90 caps 09/22/20 mcg (1,000 unit) capsule cyanocobalamin (vitamin B-12) 1,000 mcg PO DAILY 90 days #90 tabs 09/22/20 1,000 mcg tablet (Vitamin B-12) raloxifene 60 mg tablet 60 mg PO DAILY 90 days #90 tabs 09/04/21 amlodipine 2.5 mg tablet 2.5 mg PO DAILY 90 days #90 tabs 03/15/22 Allergies Allergy/AdvReac Type Severity Reaction Status Date / Time enflurane [ENFLURANE] Allergy Severe Per Verified 04/26/22 16:14 Patient Liver toxicity piperacillin [Zosyn] Allergy Unknown Unknown Verified 04/26/22 16:14 tazobactam [Zosyn] Allergy Unknown Unknown Verified 04/26/22 16:14 Review of Systems Review of Systems: Yes all other systems are reviewed and are negative Constitutional: Constitutional: Reports as per HPI ENT: Reports system reviewed and no additional complaints, except as documented Cardiovascular: Cardiovascular: Reports rapid heart rate and Reports dyspnea Respiratory: Respiratory: Reports cough, Reports hemoptysis and Reports dyspnea PMFSH Past Medical History Medical History Anemia Sevilla's esophagus Benign essential hypertension Cardiac murmur Gastric ulcer Hiatal hernia History of blood transfusion Osteopenia Overweight (BMI 25.0-29.9) Primary osteoarthritis of hand Pure hypercholesterolemia Vitamin B12 deficiency Vitamin D deficiency Surgical History History of appendectomy History of esophagogastroduodenoscopy (EGD) History of hysterectomy Family History Family History Father Hypertension Mother Stroke Social History Social History Household Members: Significant Other Housing: House Do you presently have visiting nurse or other home services: No Alcohol intake: never Patient Tobacco Use Status: Never used Tobacco Smoked in Last 30 Days: No e-Cigarette/Vaping Use: Never Used Second Hand Smoke Exposure: No Use of substances other than those prescribed or required for medical reasons: No Advance Directives: Yes Advance Directives on File: Yes Advance Directives Date on File: 01/22/21 service: No Current occupational status: retired Cognitive needs: No Hearing needs: No Vision needs: Yes (glasses) Physical Exam ED Vital Signs: Vital Signs - 24 hr 06/05/22 07:28 06/05/22 07:48 06/05/22 08:28 Temperature 98.7 F Pulse Rate 160 H 125 H 123 H Respiratory Rate 20 22 H Blood Pressure 137/87 127/62 120/67 Pulse Oximetry 92 95 Oxygen Delivery Method Room Air Nasal Cannula Oxygen Flow Rate 2 06/05/22 08:35 06/05/22 10:38 06/05/22 11:02 Temperature 98.4 F Pulse Rate 111 H 96 87 Respiratory Rate 15 18 Blood Pressure 108/62 110/71 106/70 Pulse Oximetry 96 97 97 Oxygen Delivery Method Nasal Cannula Room Air Nasal Cannula Oxygen Flow Rate 2 2 BMI result Body Mass Index 26.2 Const General: cooperative, well developed, alert, awake and anxious Orientation/consciousness: oriented to person and patient oriented x3 HENMT Head: Yes normal to inspection General nose exam: Normal external nose present Face and sinus: Yes normal facial exam Neck Neck: Yes normal visual inspection, Yes full ROM and Yes no lymphadenopathy Chest Chest palpation & inspection: normal inspection of the chest Resp Effort & Inspection: able to speak in complete sentences Auscultation: clear to auscultation bilaterally Cardio Jugular venous distension: no JVD Rate: tachycardic Rhythm: abnormal rhythm GI Inspection: Yes normal to inspection Palpation (GI): Soft to palpation, not firm, nontender and no guarding General: Yes no CVA tenderness Back/Spine/Pelvis Back: no CVA tenderness Skin General skin exam: no rashes or lesions noted, elasticity normal and turgor normal Trauma: no lacerations or abrasions Neuro General: oriented to person and patient oriented x3 Cranial nerves: Yes CN's II-XII intact bilaterally Course Reevaluation(s) Reevaluation #1: Heart rate is down to 111 she is on Cardizem drip at this time. White count noted however she was on prednisone which could explain the leukocytosis ,she has no fever. Reevaluation #2: Remains stable in the afebrile, I think that the leukocytosis is secondary to the prednisone that she took, again she has no fever lactic acid is normal Time: 11:38 Medications Administered Generic Name Dose Route Start Last Admin Trade Name Freq PRN Reason Stop Dose Admin Diltiazem HCl 125 mg/ Sodium 125 mls @ 0 mls/hr 06/05/22 07:45 06/05/22 07:58 Chloride IVCONT 10 mg/hr .Q0M SERGEY 10 mls/hr Administration Protocol Per Protocol Discontinued Medications Generic Name Dose Route Start Last Admin Trade Name Freq PRN Reason Stop Dose Admin Diltiazem HCl 20 mg 06/05/22 07:34 06/05/22 07:42 Diltiazem Hcl 50 Mg/10 Ml Vial IVPUSH 06/05/22 07:35 20 mg ONCE ONE Administration Medical Decision Making Medical Decision Making [facility] Narrative: Patient presented with the weakness in a found to be in rapid AFib in triage will start Cardizem in bolus and drip due chest x-ray anticipate admission Differential Diagnosis Differential Diagnoses: The differential diagnosis associated with the presentation includes Pneumonia/rapid atrial fibrillation/sepsis Consult Healthcare Provider Management of the patient was discussed with: Hospitalist Lab Data MDM Lab Attestation statement: I reviewed the patient's lab results. 06/05/22 07:41 06/05/22 07:41 Labs: Lab Results 06/05/22 06/05/22 06/05/22 Range/Units 07:41 07:41 07:41 WBC 26.1 H (4.8-10.8) X10*3/uL RBC 3.56 L (4.20-5.50) X10*6/uL Hgb 10.0 L (12.0-16.0) g/dl Hct 31.5 L (37.0-47.0) % MCV 88.5 (80.0-98.0) fL MCH 28.1 (27.0-33.0) pg MCHC 31.7 (31.0-35.0) g/dl RDW 12.9 (11.0-16.0) % Plt Count 297 D (160-400) X10*3/uL MPV 9.7 (9.4-12.3) fL Immature Gran % (Auto) 0.9 H (0.0-0.4) % Neut % (Auto) 81.9 H (45-73) % Lymph % (Auto) 9.9 L (20-40) % [place] % (Auto) 7.0 (2-11) % Eos % (Auto) 0.1 (0-4) % Baso % (Auto) 0.2 (0-2) % Lymph # (Auto) 2.6 (1.2-4.9) X10*3/uL [place] # (Auto) 1.8 H (0.1-1.2) X10*3/uL Eos # (Auto) 0.0 (0.0-0.4) X10*3/uL Baso # (Auto) 0.0 (0.0-0.2) X10*3/uL Abs Immat Gran (auto) 0.23 H (0.00-0.03) X10*3/uL Absolute Neuts (auto) 21.4 H (2.0-8.3) x10*3/uL Absolute Nucleated RBC 0.000 (0.0-0.012) X10*3/uL Nucleated RBC % (auto) 0.0 (0.0-0.2) /100WBC Smear Tech's Comments VERIFIED PT 16.3 H (10.0-13.1) SEC INR 1.4 H (0.9-1.1) Sodium 138 (135-145) mmol/L Potassium 3.6 (3.3-5.1) mmol/L Chloride 104 (96-108) mmol/L Carbon Dioxide 23 (22-29) mmol/L Anion Gap 15 (12-20) BUN 13 (9-16) mg/dL Creatinine 0.81 (0.5-1.4) mg/dL Estim Creat Clear Calc 60.8 Estimated GFR > 60 Random Glucose 160 H (60-115) mg/dL Lactic Acid (0.5-2.0) mmol/L Calcium 8.3 L (8.4-10.2) mg/dL Total Bilirubin 1.2 H (0.0-1.0) mg/dL AST 16 (5-31) U/L ALT 16 (0-31) U/L Alkaline Phosphatase 46 (39-117) U/L Troponin I High Sens (<3.5-17.0) ng/L B-Natriuretic Peptide (<100) pg/mL Total Protein 5.9 L (6.5-8.0) g/dL Albumin 3.5 (3.5-5.0) g/dL COVID-19 ([facility]ARA) (Negative) COVID-19 Clin Com 06/05/22 06/05/22 06/05/22 Range/Units 07:41 07:41 08:26 WBC (4.8-10.8) X10*3/uL RBC (4.20-5.50) X10*6/uL Hgb (12.0-16.0) g/dl Hct (37.0-47.0) % MCV (80.0-98.0) fL MCH (27.0-33.0) pg MCHC (31.0-35.0) g/dl RDW (11.0-16.0) % Plt Count (160-400) X10*3/uL MPV (9.4-12.3) fL Immature Gran % (Auto) (0.0-0.4) % Neut % (Auto) (45-73) % Lymph % (Auto) (20-40) % Nicol[place] % (Auto) (2-11) % Eos % (Auto) (0-4) % Baso % (Auto) (0-2) % Lymph # (Auto) (1.2-4.9) X10*3/uL [place] # (Auto) (0.1-1.2) X10*3/uL Eos # (Auto) (0.0-0.4) X10*3/uL Baso # (Auto) (0.0-0.2) X10*3/uL Abs Immat Gran (auto) (0.00-0.03) X10*3/uL Absolute Neuts (auto) (2.0-8.3) x10*3/uL Absolute Nucleated RBC (0.0-0.012) X10*3/uL Nucleated RBC % (auto) (0.0-0.2) /100WBC Smear Tech's Comments PT (10.0-13.1) SEC INR (0.9-1.1) Sodium (135-145) mmol/L Potassium (3.3-5.1) mmol/L Chloride (96-108) mmol/L Carbon Dioxide (22-29) mmol/L Anion Gap (12-20) BUN (9-16) mg/dL Creatinine (0.5-1.4) mg/dL Estim Creat Clear Calc Estimated GFR Random Glucose (60-115) mg/dL Lactic Acid (0.5-2.0) mmol/L Calcium (8.4-10.2) mg/dL Total Bilirubin (0.0-1.0) mg/dL AST (5-31) U/L ALT (0-31) U/L Alkaline Phosphatase (39-117) U/L Troponin I High Sens 27.6 H (<3.5-17.0) ng/L B-Natriuretic Peptide 414 H (<100) pg/mL Total Protein (6.5-8.0) g/dL Albumin (3.5-5.0) g/dL COVID-19 ([facility]ARA) Negative (Negative) COVID-19 Clin Com See Note 06/05/22 Range/Units 09:06 WBC (4.8-10.8) X10*3/uL RBC (4.20-5.50) X10*6/uL Hgb (12.0-16.0) g/dl Hct (37.0-47.0) % MCV (80.0-98.0) fL MCH (27.0-33.0) pg MCHC (31.0-35.0) g/dl RDW (11.0-16.0) % Plt Count (160-400) X10*3/uL MPV (9.4-12.3) fL Immature Gran % (Auto) (0.0-0.4) % Neut % (Auto) (45-73) % Lymph % (Auto) (20-40) % [place] % (Auto) (2-11) % Eos % (Auto) (0-4) % Baso % (Auto) (0-2) % Lymph # (Auto) (1.2-4.9) X10*3/uL [place] # (Auto) (0.1-1.2) X10*3/uL Eos # (Auto) (0.0-0.4) X10*3/uL Baso # (Auto) (0.0-0.2) X10*3/uL Abs Immat Gran (auto) (0.00-0.03) X10*3/uL Absolute Neuts (auto) (2.0-8.3) x10*3/uL Absolute Nucleated RBC (0.0-0.012) X10*3/uL Nucleated RBC % (auto) (0.0-0.2) /100WBC Smear Tech's Comments PT (10.0-13.1) SEC INR (0.9-1.1) Sodium (135-145) mmol/L Potassium (3.3-5.1) mmol/L Chloride (96-108) mmol/L Carbon Dioxide (22-29) mmol/L Anion Gap (12-20) BUN (9-16) mg/dL Creatinine (0.5-1.4) mg/dL Estim Creat Clear Calc Estimated GFR Random Glucose (60-115) mg/dL Lactic Acid 1.0 (0.5-2.0) mmol/L Calcium (8.4-10.2) mg/dL Total Bilirubin (0.0-1.0) mg/dL AST (5-31) U/L ALT (0-31) U/L Alkaline Phosphatase (39-117) U/L Troponin I High Sens (<3.5-17.0) ng/L B-Natriuretic Peptide (<100) pg/mL Total Protein (6.5-8.0) g/dL Albumin (3.5-5.0) g/dL COVID-19 ([facility]) (Negative) COVID-19 Clin Com Independent Interpretation I performed an independent interpretation of an: EKG and Plain X-Ray Interpretation: Rapid atrial fibrillation rate 164 ST-T changes laterally related to the tachycardia Radiology Impression Discussion of test interpretation with radiology: I have reviewed the radiologist's reading. Radiologist Impression: CLINICAL INFORMATION: Pneumonia COMPARISON: 05/24/2022 TECHNIQUE: Frontal view of the chest was obtained. FINDINGS: No significant abnormality is noted involving the heart, lungs, mediastinum, bony thorax or soft tissues. There has been resolution of the previously noted left basilar opacity XR/XR chest 1V IMPRESSION: No acute intrathoracic disease. Resolved left lower lobe pneumonia Dictated By: Misha Prater MD Signed By: <Electronically signed by Misha Prater MD in OV> 06/05/22 0852 Independent Historian Clinical information obtained from an independent historian. History obtained from or confirmed by: Spouse External Record Review External record reviewed: Inpatient record Critical Care Time Critical Care Time Critical Care Time: Yes Total Critical Care Time: 60 Attestation: IV Cardizem and a titration Discharge Plan Discharge Clinical Impression: Atrial fibrillation with RVR, Leukocytosis Patient Disposition: Admitted As Inpatient
[2022-06-05] MEDS: dilTIAZem HCL 50 MG/10 ML VIAL 20 MG IVPUSH (07:42)
[2022-06-05 07:49] LABS: Basophils Percent Auto 0.2 % (0-2); Eosinophils Percent Auto 0.1 % (0-4); Hematocrit 31.5 % (37.0-47.0); Imm Gran Abs Auto 0.23 X10*3/uL (0.00-0.03); Imm Gran Pct Auto 0.9 % (0.0-0.4); Lymphocytes Absolute Auto 2.6 X10*3/uL (1.2-4.9); Lymphocytes Percent Auto 9.9 % (20-40); MANUAL DIFF FLAG SCAN; Mean Corpuscular HGB Conc 31.7 g/dl (31.0-35.0); Mean Corpuscular Hemoglobin 28.1 pg (27.0-33.0); Mean Corpuscular Volume 88.5 fL (80.0-98.0); Mean Platelet Volume 9.7 fL (9.4-12.3); Monocytes Absolute Auto 1.8 X10*3/uL (0.1-1.2); Neutrophils Absolute Auto 21.4 x10*3/uL (2.0-8.3); Neutrophils Percent Auto 81.9 % (45-73); Platelet Count 297 X10*3/uL (160-400); Red Blood Count 3.56 X10*6/uL (4.20-5.50); Red Cell Distribution Width 12.9 % (11.0-16.0); SCAN SMEAR FLAG 1; White Blood Count 26.1 X10*3/uL (4.8-10.8)
[2022-06-05 07:55] LABS: INTERNATIONAL NORM RATIO 1.4 (0.9-1.1); Prothrombin Time 16.3 SEC (10.0-13.1)
[2022-06-05] MEDS: dilTIAZem HCL 125 MG in 0.9 % Sodium Chloride 100 ML 10 MG IVCONT ×2 (07:58→18:54)
[2022-06-05 08:07] LABS: SLIDE REVIEW VERIFIED
[2022-06-05 08:13] LABS: B Type Natriuretic Peptide 414 pg/mL (<100)
[2022-06-05 08:15] LABS: Alanine Aminotransferase 16 U/L (0-31); Albumin Level 3.5 g/dL (3.5-5.0); Alkaline Phosphatase 46 U/L (39-117); Anion Gap 15 (12-20); Aspartate Amino Transferase 16 U/L (5-31); Bilirubin Total 1.2 mg/dL (0.0-1.0); Blood Urea Nitrogen 13 mg/dL (9-16); Calcium 8.3 mg/dL (8.4-10.2); Carbon Dioxide 23 mmol/L (22-29); Chloride 104 mmol/L (96-108); Creatinine Clr Calc Pharmacy 60.8; Estimated Glomerular Filt Rate > 60; Glucose Random 160 mg/dL (60-115); Potassium 3.6 mmol/L (3.3-5.1); Sodium 138 mmol/L (135-145); Total Protein 5.9 g/dL (6.5-8.0)
[2022-06-05 08:25] LABS: Troponin-I High Sensitivity 27.6 ng/L (<3.5-17.0)
--- NOTE | 2022-06-05 08:37 | PHA.MEDREC ---
Pharmacy Consult ? Medication Reconciliation Pharmacy has completed the medication reconciliation. Med rec complete based on claim history and conversation with patient. She states she finished 7 day course of doxycycline and prednisone about a week ago.
[2022-06-05 08:52] LABS: COVID-19 Test Negative (Negative); IDNOW Serial# 08D9AD1C
--- NOTE | 2022-06-05 11:56 | PM.IMHP ---
History of Present Illness Date of Service: 06/05/22 <AGATA Cronin - Last Filed: 06/05/22 12:24> Attending physician on admission: Rohit Frances <AGATA Cronin - Last Filed: 06/05/22 12:24> Chief Complaint: fever, cough, weakness <AGATA Cronin - Last Filed: 06/05/22 12:24> 77-year-old female with history Sevilla's esophagus, hypertension, history of bleeding gastric ulcer and AVMs requiring multiple blood transfusions in 02/11 and 11/12, osteopenia, hypercholesterolemia, vitamin B12 deficiency, and vitamin-D deficiency presented to the ED earlier this morning via EMS for evaluation of generalized weakness and cough. The patient was seen in the ED on 05/23 and was diagnosed with left lower lobe pneumonia treated with doxycycline and prednisone which she reports she completed as prescribed. However last night she developed fevers of 102.1 with chills and new right-sided chest congestion with productive cough. There is associated right sided pleuritic chest pain. She also developed weakness and fatigue as well as palpitations and feels she has had decreased urinary output. She reports her partner is sick with similar symptoms at home. Denies any shortness of breath, lightheadedness, chest pain. On arrival, patient was afebrile but tachycardic to 160, no hypotension, oximetry 92% and placed on 2 L supplemental O2. Arrival, leukocytosis of 26.1, H/H 10.0/31.5%. PT 16.3, INR 1.4. Renal function baseline, electrolyte levels normal. Troponin 27.6, BNP 414. Negative for COVID-19. CXR negative for any acute cardiopulmonary disease showing resolved left lower lobe pneumonia. EKG showing atrial fibrillation with RVR, rate [address] abnormality including inversions in the lateral leads. Patient started on Cardizem drip in the ED. To be admitted for AFib with RVR. <AGATA Cronin - Last Filed: 06/05/22 12:24> Review of Systems Review of Systems: Yes all other systems are reviewed and are negative <AGATA Cronin - Last Filed: 06/05/22 12:24> [facility] Medical History: Medical History Anemia Sevilla's esophagus Benign essential hypertension Cardiac murmur Gastric ulcer Hiatal hernia History of blood transfusion Osteopenia Overweight (BMI 25.0-29.9) Primary osteoarthritis of hand Pure hypercholesterolemia Vitamin B12 deficiency Vitamin D deficiency <AGATA Cronin - Last Filed: 06/05/22 12:24> Family History: Family History Father Hypertension Mother Stroke <AGATA Cronin - Last Filed: 06/05/22 12:24> Surgical History: Surgical History History of appendectomy History of esophagogastroduodenoscopy (EGD) History of hysterectomy <AGATA Cronin - Last Filed: 06/05/22 12:24> Social History: Social History Household Members: Significant Other Housing: House Do you presently have visiting nurse or other home services: No Alcohol intake: never Patient Tobacco Use Status: Never used Tobacco Smoked in Last 30 Days: No e-Cigarette/Vaping Use: Never Used Second Hand Smoke Exposure: No Use of substances other than those prescribed or required for medical reasons: No Advance Directives: Yes Advance Directives on File: Yes Advance Directives Date on File: 01/22/21 service: No Current occupational status: retired Cognitive needs: No Hearing needs: No Vision needs: Yes (glasses) <AGATA Cronin - Last Filed: 06/05/22 12:24> Meds Allergies/Adverse reactions: Allergies Allergy/AdvReac Type Severity Reaction Status Date / Time enflurane [ENFLURANE] Allergy Severe Per Verified 04/26/22 16:14 Patient Liver toxicity piperacillin [Zosyn] Allergy Unknown Unknown Verified 04/26/22 16:14 tazobactam [Zosyn] Allergy Unknown Unknown Verified 04/26/22 16:14 <AGATA Cronin - Last Filed: 06/05/22 12:24> Active Medications: Current Medications Acetaminophen (Acetaminophen 325 Mg Tablet) 650 mg PO Q6H PRN PRN Reason: Pain, Mild (Pain Scale 1-3) Docusate Sodium (Docusate Sodium 100 Mg Capsule) 100 mg PO DAILY PRN PRN Reason: Constipation Enoxaparin Sodium (Enoxaparin Sodium 40 Mg/0.4 Ml Syringe) 75 mg SUBCUT Q12H SERGEY Diltiazem HCl 125 mg/ Sodium (Chloride) 125 mls @ 0 mls/hr IVCONT .Q0M [facility]; Protocol Last Admin: 06/05/22 07:58 Dose: 10 mg/hr, 10 mls/hr Ondansetron HCl (Ondansetron Hcl 4 Mg/2 Ml Vial) 4 mg IVPUSH Q8H PRN PRN Reason: Nausea and Vomiting Pharmacy Consult (Consult Rx Perform Med Rec) 1 each MISCELLANE ONCE PRN PRN Reason: Consult order Sodium Chloride (0.9 % Sodium Chloride Flush 3 Ml Syringe) 3 ml IVFLUSH QSHIFT SERGEY <AGATA Cronin - Last Filed: 06/05/22 12:24> Home medications: Home Medications Medication Instructions Recorded Confirmed Last Taken Type ferrous sulfate 324 mg (65 mg 324 mg PO DAILY 08/10/21 06/05/22 06/05/22 History iron) tablet,delayed release omeprazole 40 mg capsule,delayed 40 mg PO DAILY@0630 08/10/21 06/05/22 06/05/22 History release atorvastatin 10 mg tablet 10 mg PO BEDTIME 06/05/22 06/05/22 06/04/22 History <AGATA Cronin - Last Filed: 06/05/22 12:24> Physical Exam Vital Signs and Narrative: Vital Signs: Last Vital Signs Temp 98.4 F 06/05/22 11:02 Pulse 87 06/05/22 11:02 Resp 18 06/05/22 11:02 BP 106/70 06/05/22 11:02 Pulse Ox 97 06/05/22 11:02 O2 Del Method 06/05/22 11:02 O2 Flow Rate 2 06/05/22 11:02 BMI result Body Mass Index 26.2 <AGATA Cronin - Last Filed: 06/05/22 12:24> Constitutional - Awake and Alert, No apparent distress Eyes - PERRLA, EOMI Neck- Supple, no JVD Cardiovascular - S1S2, irregularly irregular rhythm with tachycardia, 1+ BLE edema Respiratory - Normal lung expansion, Normal respiratory effort, No respiratory distress, bibasilar crackles R>L Gastrointestinal - NT / ND; +BS; No rebound or guarding Extremities - no calf tenderness bilaterally, no swelling Skin - Warm/Dry Neurological - Alert & oriented x3, CN II-XII in tact, 5/5 strength BUE and BLE Psychological - Appropriate affect <AGATA Cronin - Last Filed: 06/05/22 12:24> Results Labs CBC and Chem 7: 06/05/22 07:41 06/05/22 07:41 <AGATA Cronin - Last Filed: 06/05/22 12:24> Labs: Laboratory Results - last 24 hr 06/05/22 06/05/22 06/05/22 07:41 07:41 07:41 MCV 88.5 MCH 28.1 MCHC 31.7 RDW 12.9 Plt Count 297 D MPV 9.7 Immature Gran % (Auto) 0.9 H Neut % (Auto) 81.9 H Lymph % (Auto) 9.9 L [place] % (Auto) 7.0 Eos % (Auto) 0.1 Baso % (Auto) 0.2 Lymph # (Auto) 2.6 [place] # (Auto) 1.8 H Eos # (Auto) 0.0 Baso # (Auto) 0.0 Abs Immat Gran (auto) 0.23 H Absolute Neuts (auto) 21.4 H Absolute Nucleated RBC 0.000 Nucleated RBC % (auto) 0.0 Smear Tech's Comments VERIFIED PT 16.3 H INR 1.4 H Anion Gap 15 Estim Creat Clear Calc 60.8 Estimated GFR > 60 Random Glucose 160 H Lactic Acid Calcium 8.3 L Total Bilirubin 1.2 H AST 16 ALT 16 Alkaline Phosphatase 46 Troponin I High Sens B-Natriuretic Peptide Total Protein 5.9 L Albumin 3.5 COVID-19 ([facility]) COVID-19 Clin Com 06/05/22 06/05/22 06/05/22 07:41 07:41 08:26 MCV MCH MCHC RDW Plt Count MPV Immature Gran % (Auto) Neut % (Auto) Lymph % (Auto) [place] % (Auto) Eos % (Auto) Baso % (Auto) Lymph # (Auto) [place] # (Auto) Eos # (Auto) Baso # (Auto) Abs Immat Gran (auto) Absolute Neuts (auto) Absolute Nucleated RBC Nucleated RBC % (auto) Smear Tech's Comments PT INR Anion Gap Estim Creat Clear Calc Estimated GFR Random Glucose Lactic Acid Calcium Total Bilirubin AST ALT Alkaline Phosphatase Troponin I High Sens 27.6 H B-Natriuretic Peptide 414 H Total Protein Albumin COVID-19 (TIARA) Negative COVID-19 Clin Com See Note 06/05/22 09:06 MCV MCH MCHC RDW Plt Count MPV Immature Gran % (Auto) Neut % (Auto) Lymph % (Auto) [place] % (Auto) Eos % (Auto) Baso % (Auto) Lymph # (Auto) [place] # (Auto) Eos # (Auto) Baso # (Auto) Abs Immat Gran (auto) Absolute Neuts (auto) Absolute Nucleated RBC Nucleated RBC % (auto) Smear Tech's Comments PT INR Anion Gap Estim Creat Clear Calc Estimated GFR Random Glucose Lactic Acid 1.0 Calcium Total Bilirubin AST ALT Alkaline Phosphatase Troponin I High Sens B-Natriuretic Peptide Total Protein Albumin COVID-19 ([facility]ARA) COVID-19 Clin Com <AGATA Cronin - Last Filed: 06/05/22 12:24> Imaging Radiologist's Impressions: Impressions Chest X-Ray 06/05/22 08:18 IMPRESSION: No acute intrathoracic disease. Resolved left lower lobe pneumonia <AGATA Cronin - Last Filed: 06/05/22 12:24> Assessment and Plan (1) Atrial fibrillation with RVR: Status: Acute <AGATA Cronin - Last Filed: 06/05/22 12:24> 77-year-old female with history Sevilla's esophagus, hypertension, history of bleeding gastric ulcer and AVMs requiring multiple blood transfusions in 02/11 and 11/12, osteopenia, hypercholesterolemia, vitamin B12 deficiency, and vitamin-D deficiency admitted for AFib with RVR # new onset atrial fibrillation with rapid ventricular response -EKG showing AFib with RVR. On arrival, HR 160 -continue Cardizem drip per protocol -history GI bleed. Will initiate therapeutic Lovenox with [id number] score 3 and consult Gastroenterology for further recommendations -appreciate cardiology input -cardiac diet -echocardiogram -admit to telemetry # respiratory infection -treated for pneumonia left lower lobe noted to be resolved on CXR, however developed new onset fever 102.1 last night with right-sided chest congestion -chest CT pending for further evaluation -negative for COVID-19. Full viral respiratory panel pending -initiate vanco and cefepime for empiric coverage -symptomatic management -Leukocytosis 26.1, likely in part r/t recent prednisone use, but rule out infectious etioogy. Tachycardia r/t afib rvr. No sepsis # elevated BNP -chest CT pending has bibasilar crackles auscultated on exam though CXR negative. No sob, orthopnea, weight gain -echocardiogram pending -appreciate cardiology input # elevated troponins- no chest pain -initial troponin 27, repeat pending -initial EKG with ST abnormality. Will repeat EKG #History UGIB -has had multiple EGD showing gastric ulcer and AVM. 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 new onset afib -Follow H/H closely #Barretts esophagus -continue PPI # iron deficiency anemia -H/H stable, above transfusion threshold -follow CBC # hypercholesterolemia -continue statin DVT prophylaxis-Lovenox DNR/DNI Patient requires inpatient stay of at least 2 midnights for management of new onset AFib with RVR <AGATA Cronin - Last Filed: 06/05/22 12:24> 77-year-old female with history Sevilla's esophagus, hypertension, history of bleeding gastric ulcer and AVMs requiring multiple blood transfusions in 02/11 and 11/12, osteopenia, hypercholesterolemia, vitamin B12 deficiency, and vitamin-D deficiency admitted for AFib with RVR # new onset atrial fibrillation with rapid ventricular response -EKG showing AFib with RVR. On arrival, HR 160 -continue Cardizem drip per protocol -history GI bleed. Will initiate therapeutic Lovenox with [id number] score 3 and consult Gastroenterology for further recommendations -appreciate cardiology input -cardiac diet -echocardiogram -admit to telemetry # respiratory infection -treated for pneumonia left lower lobe noted to be resolved on CXR, however developed new onset fever 102.1 last night with right-sided chest congestion -chest CT pending for further evaluation -negative for COVID-19. Full viral respiratory panel pending -initiate vanco and cefepime for empiric coverage -symptomatic management -Leukocytosis 26.1, likely in part r/t recent prednisone use, but rule out infectious etioogy. Tachycardia r/t afib rvr. No sepsis # elevated BNP -chest CT pending has bibasilar crackles auscultated on exam though CXR negative. No sob, orthopnea, weight gain -echocardiogram pending -appreciate cardiology input # elevated troponins- no chest pain -initial troponin 27, repeat pending -initial EKG with ST abnormality. Will repeat EKG #History UGIB -has had multiple EGD showing gastric ulcer and AVM. 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 Agree with history and physical and assessment and plan as outlined by Ms. Miranday. Exam consistent with right lower lobe pneumonia. Antibiotics as ordered. Continue Cardizem for AFib with rapid ventricular response. .. Titrate as indicated. Admit to telemetry. Patient is DNR DNI <Rohit Frances DO - Last Filed: 06/05/22 13:50> Time Spent With Patient Time: Total time managing care of this patient today ____ minutes. <AGATA Cronin - Last Filed: 06/05/22 12:24> Quality Stroke Does the patient have a stroke diagnosis?: No <AGATA Cronin - Last Filed: 06/05/22 12:24> VTE Prior VTE?: No <AGATA Cronin - Last Filed: 06/05/22 12:24> VTE Risk Level:: Medical - moderate - high <AGATA Cronin - Last Filed: 06/05/22 12:24> VTE Device Contraindication: Treatment Not Indicated <AGATA Cronin - Last Filed: 06/05/22 12:24> VTE Drug Contraindication: N/A - Med Ordered <AGATA Cronin - Last Filed: 06/05/22 12:24>
[2022-06-05] MEDS: Enoxaparin Sodium 40 MG/0.4 ML SYRINGE 75 MG SUBCUT ×2 (12:28→23:59)
--- NOTE | 2022-06-05 12:44 | PHA.PROG ---
Admission Date/Time: June 05, 2022 11:48 Indication: Resp Infection Weight in k.75 kg Adjusted body weight in K.26 kg [place] body weight in K.6 kg Obesity Dosing Indication % IBW: 122% Serum Creatinine - Last 168 Hours 06/05/22 07:41 Creatinine 0.81 Estimated CrCl and GFR - Last 168 Hours 06/05/22 07:41 Estim Creat Clear Calc 60.8 Estimated GFR > 60 Vancomycin Loading Dose: 2000 mg Current Vancomycin Dosing Regimen: 1250 mg Q24H Date and Time for next Vancomycin Level to be drawn: @ 1000 Pharmacist Comments on Vancomycin Plan: patient is currently receiving vancomycin 2000 mg loading dose (06/05 @ 1233) Maintenance dose vanco 1250 mg Q24H is scheduled to start 06/06 @ 1200. Expected AUC 511 with a trough of 15.4. Level is scheduled to be drawn prior to 4th dose Pharmacy will monitor renal function daily. Rosenda Sanchez, Travis Vancomycin dosing will take advantage of ImmuVen as a clinical decision support tool that uses Bayesian modeling to calculate individual patient's pharmacokinetic parameters and forecast the patient's drug concentration time course with the target goal AUC 24 range of 400 - 600 mg/L/hr.
[2022-06-05 12:57] LABS: Troponin-I High Sensitivity 25.5 ng/L (<3.5-17.0)
[2022-06-05 14:47] LABS: Appearance Urine Cloudy; Color Urine Yellow; Glucose Urine UA Negative (Negative); Leukocyte Esterase Urine Moderate (2+) (Negative); Nitrite Urine Negative (Negative); PH 5.5 (5.0-9.0); UMIC TRIGGER UACC YES; Urine Blood Negative (Negative); Urine Ketones Trace mg/dL (Negative); Urine Protein 30 (1+) mg/dL (Neg-Trace)
[2022-06-05 14:59] LABS: Bacteria Urine Trace (None Seen); UACC Culture Trigger YES
--- NOTE | 2022-06-05 15:47 | MHC.CM.PN ---
CM attempted to meet with patient for discharge planning, but pt is receiving a bedside echo. Will assess when patient is available.
[2022-06-05] MEDS: cefEPime HCl 2 GM in 0.9 % Sodium Chloride 50 ML IV ×2 (16:53→20:59)
--- NOTE | 2022-06-05 18:51 | P.EN_ITS ---
Event Note Date of Service: 06/05/22 Event Note: GI Consult-Full note dictated. History from patient and EMR. Imp: 77 yo female with pneumonia and new-onset A.fib with need for anticoagulation. She has had a history of GI blood loss and chronic anemia. Her most recent evaluations were in 10/2021 when she came in with a GI bleed felt to be due to a diverticular bleed. An EGD at that time revealed her known Sevilla's esophagus, a hiatal hernia, and gastric polyps. A colonoscopy at that time revealed diverticulosis, a hyperplastic polyp, and a nonbleeding AVM. A previous small bowel video capsule study in 2020 had been negative. A previous upper endoscopy in 2020 had revealed a nonbleeding gastric ulcer. She has been on daily omeprazole and daily iron. She does not use any chronic aspirin nor NSAIDs. Her Hgb on this current admission is at her baseline and she has had no signs/symptoms of GI bleeding since her episode in 10/2021. She has been on Lovenox injections since admission. Rec: Overall, I do think she can receive anticoagulation for the A.fib as the benefit of stroke prevention outweighs potential for significant GI bleeding at this time. She currently denies any Gi symptoms and does not show any signs of GI bleeding. Her Hgb is stable at it's baseline. I would continue her daily omeprazole, but will increase her Iron to BID. 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 She should have periodic CBC's. If she shows signs of active bleeding the blood thinner should be stopped and the patient should be referred back to see me. D/W patient in detail and she is comfortable with this plan. Thanks Time Spent With Patient Time: Total time managing care of this patient today ____ minutes.
[2022-06-05 19:10] LABS: Magnesium 1.4 mg/dL (1.6-2.6)
[2022-06-05 19:17] LABS: TSH reflex Free T4 2.12 uIU/mL (0.32-4.0)
[2022-06-05] MEDS: Magnesium Sulfate/H2O 2 GM/50 ML PIGGYBACK IV (20:58)
[2022-06-05] MEDS: Atorvastatin Calcium 10 MG TABLET PO (21:04)
[2022-06-05] MEDS: 0.9 % Sodium Chloride Flush 3 ML SYRINGE IVFLUSH (21:04)
[2022-06-06] VITALS (7 sets, daily range): BP systolic 107–136; BP diastolic 61–66; PULSE 84–108; RESP 16–24; TEMP 36.3–37.4; O2SAT 94–96
--- NOTE | 2022-06-06 03:11 | PC.NURSE ---
HS and midnight VSS with exception of HR. Pt afib with HR 115-90's. Pt was on cardizem drip at 10mg/hr. I decreased it to 5mg and pt quicklly went from 88-94 to 77-86. Cardizem was stopped at 0210. Currently, HR is 85. Pt sleeping comfortably in bed with eyes closed. No c/o pain/sob/palpitatios. Will continue to monitor.
--- NOTE | 2022-06-06 04:59 | CONS_ITS ---
DATE OF SERVICE: 06/05/2022 REASON FOR CONSULTATION: Anemia and need for anticoagulation. HISTORY OF PRESENT ILLNESS: The patient is a 77-year-old female well known to me. She has history of GI issues including chronic reflux with Sevilla's esophagus and a chronic anemia in relation to some probable component of chronic GI blood loss in relation to a small colon angiodysplasia and her reflux. I last saw the patient in the office in December 2021 at which point she was feeling well from a GI standpoint. Her most recent GI evaluation was in October 2021 when she was admitted with a GI bleed, which was overall felt to be due to a diverticular bleed. She underwent an upper endoscopy and colonoscopy during that admission in October [address] Cantrell. The upper endoscopy was negative for any sign of significant problems such as ulcer disease nor esophagitis. Her known Sevilla's esophagus was again noted. A colonoscopy revealed a tiny nonbleeding angiodysplasia in the ascending colon and a hyperplastic polyp. In 2020, she had had a negative small bowel video capsule study. An upper endoscopy in 2020 had revealed a nonbleeding gastric ulcer. Most recently, she has had issues with pneumonia and was admitted here again with recurrent pneumonia and atrial fibrillation. She has been on a diltiazem infusion with better control of her heart rate. She was started on Lovenox injections, but is felt to need long-term anticoagulation in regard to the atrial fibrillation. The patient denies any new GI symptoms. Her daily omeprazole has been working well for the reflux. She denies any significant heartburn or dysphagia. She denies any nausea, vomiting, dysphagia, nor early satiety. Her appetite has been good. She denies any abdominal pain nor jaundice. She denies any weight loss. Her bowel movements have been regular and without any signs of bleeding. She does remain on a daily iron supplement long-term. In the past, she had been on iron twice a day without any adverse effects, but due to her stable condition, the iron was decreased to just once a day. Since admission here in the hospital, she has had no signs of GI bleeding and has been tolerating her diet thus far. Her current medications include diltiazem infusion, acetaminophen, atorvastatin, cefepime 2 g IV every 8 hours, vitamin D, Colace, Lovenox, iron, omeprazole 40 mg daily, Zofran, and IV vancomycin. PAST MEDICAL HISTORY: Recent pneumonia and new-onset atrial fibrillation, chronic reflux with Sevilla's esophagus, nonbleeding angiodysplasia of the colon, diverticulosis, hyperlipidemia, hypertension, fatty liver, and heart murmur. She denies a history of [place], stroke, or lung disease nor kidney disease. She has a previous history of pancreatitis 20 years ago, chronic anemia, and history of appendectomy and complete hysterectomy. SOCIAL HISTORY: She is single. She does not smoke nor use any significant amounts of alcohol. 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 FAMILY HISTORY: Negative for GI malignancy. REVIEW OF SYSTEMS: CONSTITUTIONAL: She has been feeling fatigued and somewhat anorectic in relation to her pneumonia recently. SKIN: No rash. No pruritus. CARDIAC: No chest pain. PULMONARY: She has been coughing, but no hemoptysis. GI: As above. URINARY: No dysuria. No hematuria. NEUROLOGIC: No headache or seizures. PSYCHIATRIC: Negative. PHYSICAL EXAMINATION: GENERAL: The patient is a pleasant elderly alert female. SKIN: Warm and dry. HEENT: Nonjaundiced. Anicteric sclerae. Moist mucous membranes. NECK: Supple without lymphadenopathy. CHEST: Reveals diminished breath sounds at the bases. There is no wheezing. CARDIAC: Normal S1 and S2, but irregular rate and systolic murmur. ABDOMEN: Soft, nondistended, and nontender without mass or organomegaly. There is no tenderness. EXTREMITIES: Without edema. NEUROLOGIC: She is alert and oriented x 3. LABORATORY DATA: Her hemoglobin is stable at a hemoglobin of 10.0 with a normal MCV. Her chemistries and LFTs are normal. IMPRESSION AND PLAN: At this point the patient appears quite stable from a GI standpoint. She does not describe nor show any signs of gastrointestinal bleeding. At this point, it does appear that she requires anticoagulation in regard to the new-onset atrial fibrillation. I do feel the benefit of anticoagulation in regard to stroke prevention would outweigh any potential for significant gastrointestinal bleeding given her recent gastrointestinal studies in October 2021 and her current history. As such, I do not see any contraindication to starting anticoagulation. I would continue her omeprazole on a long-term basis as she is already on that for her chronic reflux. She does take iron daily and I did advise her to increase that to twice a day while on the anticoagulation. She has been on the iron twice a day in the past without any adverse gastrointestinal effects. I would recommend that she have a periodic CBC on the blood thinners once she is discharged. Clearly, if she begins having any obvious gastrointestinal bleeding, then we can reassess things. However, at this point, given all of her studies in the past 1 to 2 years, I do not think any GI evaluation is currently needed otherwise at this time. I did advise her to continue to avoid aspirin and NSAIDs at home, particularly now that she will be on a blood thinner. She will be seeing me later this year for followup visit as well. This has all been discussed with the patient in detail and she is comfortable with that plan. Thank you for the consultation. MD JUDY Patel/MARGARET / [phone] MTDD
[2022-06-06] MEDS: cefEPime HCl 2 GM in 0.9 % Sodium Chloride 50 ML IV ×3 (05:58→21:52)
[2022-06-06] MEDS: Omeprazole 40 MG CAPSULE.DR PO (05:58)
--- NOTE | 2022-06-06 06:32 | PC.NURSE ---
Pt's bed changed and pt repositioned this am. At this time, pt's HR up to 160's. Resolved with rest, currently SR 90's. Will pass along in report.
[2022-06-06 07:05] LABS: Basophils Absolute Auto 0.1 X10*3/uL (0.0-0.2); Basophils Percent Auto 0.2 % (0-2); Eosinophils Absolute Auto 0.1 X10*3/uL (0.0-0.4); Eosinophils Percent Auto 0.5 % (0-4); Hematocrit 27.5 % (37.0-47.0); Hemoglobin 8.9 g/dl (12.0-16.0); Imm Gran Abs Auto 0.16 X10*3/uL (0.00-0.03); Imm Gran Pct Auto 0.8 % (0.0-0.4); Lymphocytes Absolute Auto 2.2 X10*3/uL (1.2-4.9); Lymphocytes Percent Auto 10.9 % (20-40); MANUAL DIFF FLAG SCAN; Mean Corpuscular HGB Conc 32.4 g/dl (31.0-35.0); Mean Corpuscular Hemoglobin 28.6 pg (27.0-33.0); Mean Corpuscular Volume 88.4 fL (80.0-98.0); Mean Platelet Volume 9.9 fL (9.4-12.3); Monocytes Absolute Auto 1.7 X10*3/uL (0.1-1.2); Monocytes Percent Auto 8.3 % (2-11); Neutrophils Absolute Auto 16.1 x10*3/uL (2.0-8.3); Neutrophils Percent Auto 79.3 % (45-73); Platelet Count 270 X10*3/uL (160-400); Red Blood Count 3.11 X10*6/uL (4.20-5.50); Red Cell Distribution Width 13.1 % (11.0-16.0); SCAN SMEAR FLAG 1; White Blood Count 20.4 X10*3/uL (4.8-10.8)
[2022-06-06 07:23] LABS: Anion Gap 12 (12-20); Blood Urea Nitrogen 11 mg/dL (9-16); Calcium 7.7 mg/dL (8.4-10.2); Carbon Dioxide 22 mmol/L (22-29); Chloride 107 mmol/L (96-108); Creatinine Clr Calc Pharmacy 64.8; Estimated Glomerular Filt Rate > 60; Glucose Random 118 mg/dL (60-115); Magnesium 1.9 mg/dL (1.6-2.6); Potassium 3.5 mmol/L (3.3-5.1); Sodium 137 mmol/L (135-145)
[2022-06-06] MEDS: Ferrous Sulfate 324 MG TABLET.DR PO ×2 (07:44→15:43)
[2022-06-06] MEDS: Cholecalciferol (Vitamin D3) 25 MCG TABLET PO (07:44)
[2022-06-06] MEDS: Cyanocobalamin (Vitamin B-12) 1,000 MCG TABLET 1000 MCG PO (07:44)
[2022-06-06] MEDS: 0.9 % Sodium Chloride Flush 3 ML SYRINGE IVFLUSH ×2 (07:45→16:29)
[2022-06-06 07:48] LABS: SLIDE REVIEW VERIFIED
--- NOTE | 2022-06-06 08:14 | MHC.CM.PN ---
CM met with Patient at bedside. 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 Home/self care is the goal and CM has initiated and will follow for dc planning. Patient has received Covid vax x5 and her PCP is Dr. Colt Teran.
[2022-06-06] MEDS: dilTIAZem HCL 125 MG in 0.9 % Sodium Chloride 100 ML 10 MG IVCONT (13:24)
[2022-06-06] MEDS: vancomycin HCL 1,250 MG in 0.9 % Sodium Chloride 250 ML 166.67 MG IV (13:29)
--- NOTE | 2022-06-06 13:58 | P.PNIM_ITS ---
Subjective Subjective Date of Service: 06/06/22 Interval History: Uneventful night. Remains on Cardizem drip rate control adequate. Some hemoptysis likely due to anticoagulation. No tobacco history Review of Systems Denies chest pain Denies shortness of breath Denies nausea vomiting diarrhea Denies fever chills Physical Exam Vital Signs: Vital Signs: Last Vital Signs Temp 98.9 F 06/06/22 12:00 Pulse 97 06/06/22 12:00 Resp 24 H 06/06/22 12:00 BP 112/64 06/06/22 12:00 Pulse Ox 95 06/06/22 12:00 O2 Del Method 06/06/22 12:00 O2 Flow Rate 2 06/06/22 12:00 BMI result Body Mass Index 26.2 Const: Other: Awake alert no acute distress Resp: Other: Diminished right lower lobe with consolidated crackles and diffuse expiratory wheezes throughout Cardio: Other: Irregularly irregular; no S4; positive S1-S2; no S3 2/6 systolic murmur best heard at the apex GI: Other: Soft nontender nondistended normoactive bowel sounds Extrem: Other: No edema bilaterally Objective Data Active Medications Acetaminophen (Acetaminophen 325 Mg Tablet) 650 mg PO Q6H PRN PRN Reason: Pain, Mild (Pain Scale 1-3) Apixaban (Apixaban 5 Mg Tablet) 5 mg PO BID [facility] Atorvastatin Calcium (Atorvastatin Calcium 10 Mg Tablet) 10 mg PO BEDTIME [facility] Last Admin: 06/05/22 21:04 Dose: 10 mg Documented By: BRITTNEY Cyanocobalamin (Cyanocobalamin (Vitamin B-12) 1,000 Mcg Tablet) 1,000 mcg PO DAILY [facility] Last Admin: 06/06/22 07:44 Dose: 1,000 mcg Documented By: HENRI Docusate Sodium (Docusate Sodium 100 Mg Capsule) 100 mg PO DAILY PRN PRN Reason: Constipation Ferrous Sulfate (Ferrous Sulfate 324 Mg Tablet.Dr) 324 mg PO BIDWM [facility] Last Admin: 06/06/22 07:44 Dose: 324 mg Documented By: HENRI Guaifenesin (Guaifenesin 200 Mg/10 Ml 10 Ml Liquid) 10 ml PO Q6H PRN PRN Reason: Cough Diltiazem HCl 125 mg/ Sodium (Chloride) 125 mls @ 0 mls/hr IVCONT .Q0M [facility]; Protocol Last Admin: 06/06/22 13:24 Dose: 10 mg/hr, 10 mls/hr Documented By: HENRI Cefepime HCl 2 gm/ Sodium (Chloride) 50 mls @ 100 mls/hr IV Q8H [facility] Last Infusion: 06/06/22 06:28 Dose: 0 mls/hr Documented By: BRITTNEY Vancomycin HCl 1,250 mg/ (Sodium Chloride) 250 mls @ 166.667 mls/hr IV Q24H [facility] Last Admin: 06/06/22 13:29 Dose: 166.67 mls/hr Documented By: HENRI Omeprazole (Omeprazole 40 Mg Capsule.Dr) 40 mg PO DAILY@0630 [facility] Last Admin: 06/06/22 05:58 Dose: 40 mg Documented By: BRITTNEY Ondansetron HCl (Ondansetron Hcl 4 Mg/2 Ml Vial) 4 mg IVPUSH Q8H PRN PRN Reason: Nausea and Vomiting Pharmacy Consult (Consult Rx Perform Med Rec) 1 each MISCELLANE ONCE PRN PRN Reason: Consult order Pharmacy Consult (Consult Rx Vancomycin Dosing) 1 each MISCELLANE DAILY PRN PRN Reason: Consult order Sodium Chloride (0.9 % Sodium Chloride Flush 3 Ml Syringe) 3 ml IVFLUSH QSHIFT [facility] Last Admin: 06/06/22 07:45 Dose: 3 ml Documented By: HENRI Vitamin D (Cholecalciferol (Vitamin D3) 25 Mcg Tablet) 25 mcg PO DAILY [facility] Last Admin: 06/06/22 07:44 Dose: 25 mcg Documented By: HENRI Labs 06/06/22 06:39 06/06/22 06:39 Labs: Laboratory Results - last 24 hr 06/05/22 06/05/22 06/06/22 07:41 14:22 06:39 MCV 88.4 MCH 28.6 MCHC 32.4 RDW 13.1 Plt Count 270 MPV 9.9 Immature Gran % (Auto) 0.8 H Neut % (Auto) 79.3 H Lymph % (Auto) 10.9 L [place] % (Auto) 8.3 Eos % (Auto) 0.5 Baso % (Auto) 0.2 Lymph # (Auto) 2.2 [place] # (Auto) 1.7 H Eos # (Auto) 0.1 Baso # (Auto) 0.1 Abs Immat Gran (auto) 0.16 H Absolute Neuts (auto) 16.1 H Absolute Nucleated RBC 0.000 Nucleated RBC % (auto) 0.0 Smear Tech's Comments VERIFIED Anion Gap Estim Creat Clear Calc Estimated GFR Random Glucose Calcium Magnesium 1.4 L* TSH 2.12 Urine Color Yellow Urine Appearance Cloudy Urine pH 5.5 Ur Specific Leona 1.020 Urine Protein 30 (1+) H Urine Glucose (UA) Negative Urine Ketones Trace Urine Blood Negative Urine Nitrite Negative Ur Leukocyte Esterase Moderate (2+) H Urine RBC 3-5 H Urine WBC 6-10 Ur Squamous Epith Cells 6-10 Urine Bacteria Trace Hyaline Casts 3-5 06/06/22 06:39 MCV MCH MCHC RDW Plt Count MPV Immature Gran % (Auto) Neut % (Auto) Lymph % (Auto) [place] % (Auto) Eos % (Auto) Baso % (Auto) Lymph # (Auto) [place] # (Auto) Eos # (Auto) Baso # (Auto) Abs Immat Gran (auto) Absolute Neuts (auto) Absolute Nucleated RBC Nucleated RBC % (auto) Smear Tech's Comments Anion Gap 12 Estim Creat Clear Calc 64.8 Estimated GFR > 60 Random Glucose 118 H Calcium 7.7 L D Magnesium 1.9 TSH Urine Color Urine Appearance Urine pH Ur Specific [place]ona Urine Protein Urine Glucose (UA) Urine Ketones Urine Blood Urine Nitrite Ur Leukocyte Esterase Urine RBC Urine WBC Ur Squamous Epith Cells Urine Bacteria Hyaline Casts Microbiology Microbiology Results: Microbiology 06/05/22 15:09 Urine Culture - Final Urine clean catch - Urine cabrera top 06/05/22 09:06 Blood Culture - Preliminary Blood - Venous No growth after 24 hours. 06/05/22 09:06 Blood Culture - Preliminary Blood - Venous No growth after 24 hours. Assessment and Plan (1) Atrial fibrillation with RVR: Status: Acute (2) Right lower lobe pneumonia: Status: Acute (3) Gastric ulcer: Status: Acute (4) Anemia: Status: Acute Plan 77-year-old female with history Sevilla's esophagus, hypertension, history of bleeding gastric ulcer and AVMs requiring multiple blood transfusions in 02/11 and 11/12, osteopenia, hypercholesterolemia, vitamin B12 deficiency, and vitamin- D deficiency admitted for AFib with RVR 1.New onset atrial fibrillation with rapid ventricular response -control with Cardizem drip at 10 milligrams/hour -2D echo demonstrates LVEF approximately 70% with dilated left atria -cart consult pending 2. Right lower lobe pneumonia -vanco/cefepime(2) -titrate O2 to maintain sats greater than equal 90% -p.r.n. DuoNebs -add pulse dose steroids 3.History UGIB -Dr. Herrera' note reviewed -no contraindication to anticoagulation.. . Will start Eliquis -continue PPI Eliquis DNR/DNI Patient requires ongoing hospitalization for IV Cardizem to control atrial fibrillation IV antibiotics to treat right lower known pneumonia Time Spent With Patient Time: Total time managing care of this patient today ____ minutes. Quality Stroke Does the patient have a stroke diagnosis?: No VTE Prior VTE?: No VTE Risk Level:: Medical - moderate - high VTE Device Contraindication: Treatment Not Indicated VTE Drug Contraindication: N/A - Med Ordered
[2022-06-06] MEDS: methylPREDNISolone Sod Succ 125 MG/2 ML VIAL IVPUSH (15:43)
[2022-06-06] MEDS: Apixaban 5 MG TABLET PO ×2 (15:43→19:50)
--- NOTE | 2022-06-06 16:48 | P.CONCA_ITS ---
History of Present Illness History of Present Illness Date of Service: 06/06/22 Requesting physician: Rohit Frances Chief complaint: Afib RVR, HCM Narrative: 77-year-old female who follows with Dr. Funk. She has known history of hypertrophic obstructive cardiomyopathy. She is coming with shortness of breath and has been diagnosed with pneumonia. She recently had pneumonia and was treated for that. She has chronic reflux with Sevilla's esophagus and chronic anemia due to chronic GI blood loss. This is thought to be due to angiodysplasia. GI has seen her and felt that she can start Eliquis as there is no obvious concern for bleeding. She did have some hemoptysis today too. Her main concern is that she has fatigue and gets tired very easily as she tries to walk. She is not complaining of significant shortness of breath. She has no history of syncope in the past. She is currently not dizzy or complaining of any chest discomfort. [facility] Past Medical History Medical History Anemia Sevilla's esophagus Benign essential hypertension Cardiac murmur Gastric ulcer Hiatal hernia History of blood transfusion Osteopenia Overweight (BMI 25.0-29.9) Primary osteoarthritis of hand Pure hypercholesterolemia Vitamin B12 deficiency Vitamin D deficiency Family History Family History Father Hypertension Mother Stroke Surgical History Surgical History History of appendectomy History of esophagogastroduodenoscopy (EGD) History of hysterectomy Social History Social History Household Members: Spouse Housing: House Do you presently have visiting nurse or other home services: No Alcohol intake: never Patient Tobacco Use Status: Never used Tobacco Smoked in Last 30 Days: No e-Cigarette/Vaping Use: Never Used Second Hand Smoke Exposure: No Use of substances other than those prescribed or required for medical reasons: No Currently Displaying Signs/Symptoms of Drug Intoxication Withdrawal: No Have you been hit, kicked, punched, or otherwise hurt by someone within the past year? If so, by whom?: No Do you feel safe in your current relationship?: Yes Is there a partner from a previous relationship who is making you feel unsafe now?: No Are you made to feel afraid or neglected: No Advance Directives: Yes Advance Directives on File: Yes Advance Directives Date on File: 01/22/21 Do you have thoughts of harming others: None Do you have a plan to hurt others: No Plan Recently lost weight without trying: Unsure Eating poorly because of decreased appetite: Yes Nutrition Risks: No Nutritional Risk Patient : No : No Poor oral hygiene: No service: No Current occupational status: retired Cognitive needs: No Hearing needs: No Vision needs: Yes (glasses) Meds Allergies Allergy/AdvReac Type Severity Reaction Status Date / Time enflurane [ENFLURANE] Allergy Severe Per Verified 04/26/22 16:14 Patient Liver toxicity piperacillin [Zosyn] Allergy Unknown Unknown Verified 04/26/22 16:14 tazobactam [Zosyn] Allergy Unknown Unknown Verified 04/26/22 16:14 Active Medications: Current Medications Acetaminophen (Acetaminophen 325 Mg Tablet) 650 mg PO Q6H PRN PRN Reason: Pain, Mild (Pain Scale 1-3) Apixaban (Apixaban 5 Mg Tablet) 5 mg PO BID [facility] Last Admin: 06/06/22 15:43 Dose: 5 mg Atorvastatin Calcium (Atorvastatin Calcium 10 Mg Tablet) 10 mg PO BEDTIME [facility] Last Admin: 06/05/22 21:04 Dose: 10 mg Cyanocobalamin (Cyanocobalamin (Vitamin B-12) 1,000 Mcg Tablet) 1,000 mcg PO DAILY [facility] Last Admin: 06/06/22 07:44 Dose: 1,000 mcg Docusate Sodium (Docusate Sodium 100 Mg Capsule) 100 mg PO DAILY PRN PRN Reason: Constipation Ferrous Sulfate (Ferrous Sulfate 324 Mg Tablet.Dr) 324 mg PO BIDWM [facility] Last Admin: 06/06/22 15:43 Dose: 324 mg Guaifenesin (Guaifenesin 200 Mg/10 Ml 10 Ml Liquid) 10 ml PO Q6H PRN PRN Reason: Cough Diltiazem HCl 125 mg/ Sodium (Chloride) 125 mls @ 0 mls/hr IVCONT .Q0M [facility]; Protocol Last Admin: 06/06/22 13:24 Dose: 10 mg/hr, 10 mls/hr Cefepime HCl 2 gm/ Sodium (Chloride) 50 mls @ 100 mls/hr IV Q8H [facility] Last Infusion: 06/06/22 16:28 Dose: Infused Vancomycin HCl 1,250 mg/ (Sodium Chloride) 250 mls @ 166.667 mls/hr IV Q24H [facility] Last Infusion: 06/06/22 16:00 Dose: Infused Omeprazole (Omeprazole 40 Mg Capsule.) 40 mg PO DAILY@0630 [facility] Last Admin: 06/06/22 05:58 Dose: 40 mg Ondansetron HCl (Ondansetron Hcl 4 Mg/2 Ml Vial) 4 mg IVPUSH Q8H PRN PRN Reason: Nausea and Vomiting Pharmacy Consult (Consult Rx Perform Med Rec) 1 each MISCELLANE ONCE PRN PRN Reason: Consult order Pharmacy Consult (Consult Rx Vancomycin Dosing) 1 each MISCELLANE DAILY PRN PRN Reason: Consult order Sodium Chloride (0.9 % Sodium Chloride Flush 3 Ml Syringe) 3 ml IVFLUSH QSHIFT [facility] Last Admin: 06/06/22 16:29 Dose: 3 ml Vitamin D (Cholecalciferol (Vitamin D3) 25 Mcg Tablet) 25 mcg PO DAILY [facility] Last Admin: 06/06/22 07:44 Dose: 25 mcg Home Medications Medication Instructions Recorded Confirmed Last Taken Type ferrous sulfate 324 mg (65 mg 324 mg PO DAILY 08/10/21 06/05/22 06/05/22 History iron) tablet,delayed release omeprazole 40 mg capsule,delayed 40 mg PO DAILY@0630 08/10/21 06/05/22 06/05/22 History release atorvastatin 10 mg tablet 10 mg PO BEDTIME 06/05/22 06/05/22 06/04/22 History Physical Exam Vital Signs: Vital Signs: Last Vital Signs Temp 98.0 F 06/06/22 15:37 Pulse 100 06/06/22 15:37 Resp 20 06/06/22 15:37 BP 133/64 06/06/22 15:37 Pulse Ox 96 06/06/22 15:37 O2 Del Method 06/06/22 15:37 O2 Flow Rate 1 06/06/22 15:37 BMI result Body Mass Index 26.2 GENERAL APPEARANCE: in no acute distress, pleasant. On supplemental oxygen. NECK: no carotid bruit, no jugular venous distention. SKIN: no suspicious lesions, warm and dry. HEART: Harsh systolic murmur all over the precordium, irregular rate and rhythm. Tachycardic. LUNGS: clear to auscultation bilaterally. ABDOMEN: soft, nontender. EXTREMITIES: no edema. PERIPHERAL PULSES: equal. NEUROLOGIC: No gross deficits, AAO X 3 Objective Labs and Meds 06/06/22 06:39 06/06/22 06:39 Lab results: Laboratory Results - last 24 hr 06/05/22 06/06/22 06/06/22 07:41 06:39 06:39 WBC 20.4 H RBC 3.11 L Hgb 8.9 L Hct 27.5 L MCV 88.4 MCH 28.6 MCHC 32.4 RDW 13.1 Plt Count 270 MPV 9.9 Immature Gran % (Auto) 0.8 H Neut % (Auto) 79.3 H Lymph % (Auto) 10.9 L [place] % (Auto) 8.3 Eos % (Auto) 0.5 Baso % (Auto) 0.2 Lymph # (Auto) 2.2 [place] # (Auto) 1.7 H Eos # (Auto) 0.1 Baso # (Auto) 0.1 Abs Immat Gran (auto) 0.16 H Absolute Neuts (auto) 16.1 H Absolute Nucleated RBC 0.000 Nucleated RBC % (auto) 0.0 Smear Tech's Comments VERIFIED Sodium 137 Potassium 3.5 Chloride 107 Carbon Dioxide 22 Anion Gap 12 BUN 11 Creatinine 0.76 Estim Creat Clear Calc 64.8 Estimated GFR > 60 Random Glucose 118 H Calcium 7.7 L D Magnesium 1.4 L* 1.9 TSH 2.12 Assessment and Plan (1) Right lower lobe pneumonia: Status: Acute (2) Atrial fibrillation with RVR: Status: Acute (3) Hypertrophic cardiomyopathy: Status: Acute Plan 77-year-old female was known history of hypertrophic obstructive cardiomyopathy who is presenting with pneumonia and AFib with RVR. Echocardiography has shown significantly high LVOT gradient. By echocardiography performed by us there is no obvious evidence of systolic anterior motion of the mitral valve but clearly there is left ventricular outflow tract gradient present. I reached out to Dr. Funk and he sent me previous echocardiography which has confirmed that she has severe systolic anterior motion of the mitral valve with asymmetric septal hypertrophy and septal thickness of 1.2-1.5 cm. Her resting gradients at that time were 158 mm Hg and increased to 313 mm Hg with Valsalva. By our echocardiogram she had peak gradient in the left ventricular outflow tract of 118 mm Hg with Valsalva which is lower than her previous gradients. In any case she is currently stable. Volume status is paramount in managing her because hypovolemia can cause more obstruction and can lead to shock. I did not see any significant mitral regurgitation on the echocardiogram performed in our institution. I think she should have volume resuscitation. We will avoid any vasodilators and nitrates on her. Agree with diltiazem for rate control currently. In terms of anticoagulation I think we should monitor hemoglobin closely as hemoglobin has been dropping. She also had some hemoptysis which is related to pneumonia. If hemoglobin drops further then I would consider stopping anticoagulation as hypovolemia and GI bleed can lead to more LVOT obstruction in her which can be fairly challenging to manage. Will follow along with you. Thank you for allowing me to participate in the care of your patient. Please feel free to contact me if you have any questions. Time Spent With Patient Time: Total time managing care of this patient today ____ minutes. Procedures Date of Service Date of Service: 06/06/22
[2022-06-06] MEDS: Lactated Ringers 1,000 ML 100 ML IVCONT (18:34)
[2022-06-06] MEDS: Atorvastatin Calcium 10 MG TABLET PO (19:50)
[2022-06-07 04:00] VITALS: BP 114/71; PULSE 88; RESP 16; TEMP 36.4; O2SAT 96
[2022-06-07] MEDS: Omeprazole 40 MG CAPSULE.DR PO (05:25)
[2022-06-07] MEDS: cefEPime HCl 2 GM in 0.9 % Sodium Chloride 50 ML IV ×3 (05:25→23:16)
[2022-06-07] MEDS: Lactated Ringers 1,000 ML 100 ML IVCONT (05:26)
[2022-06-07 07:00] LABS: MANUAL DIFF FLAG NO
[2022-06-07 07:03] LABS: Basophils Percent Auto 0.1 % (0-2); Hematocrit 26.7 % (37.0-47.0); Hemoglobin 8.7 g/dl (12.0-16.0); Imm Gran Pct Auto 0.6 % (0.0-0.4); Lymphocytes Absolute Auto 1.5 X10*3/uL (1.2-4.9); Lymphocytes Percent Auto 9.6 % (20-40); Mean Corpuscular HGB Conc 32.6 g/dl (31.0-35.0); Mean Corpuscular Hemoglobin 28.7 pg (27.0-33.0); Mean Corpuscular Volume 88.1 fL (80.0-98.0); Mean Platelet Volume 9.9 fL (9.4-12.3); Monocytes Absolute Auto 0.3 X10*3/uL (0.1-1.2); Monocytes Percent Auto 1.7 % (2-11); Neutrophils Absolute Auto 13.8 x10*3/uL (2.0-8.3); Platelet Count 271 X10*3/uL (160-400); Red Blood Count 3.03 X10*6/uL (4.20-5.50); Red Cell Distribution Width 12.9 % (11.0-16.0); White Blood Count 15.7 X10*3/uL (4.8-10.8)
[2022-06-07 07:21] LABS: Alanine Aminotransferase 22 U/L (0-31); Albumin Level 2.8 g/dL (3.5-5.0); Alkaline Phosphatase 43 U/L (39-117); Anion Gap 13 (12-20); Aspartate Amino Transferase 21 U/L (5-31); Bilirubin Total 0.6 mg/dL (0.0-1.0); Blood Urea Nitrogen 12 mg/dL (9-16); Calcium 8.1 mg/dL (8.4-10.2); Carbon Dioxide 20 mmol/L (22-29); Chloride 110 mmol/L (96-108); Creatinine Clr Calc Pharmacy 69.3; Estimated Glomerular Filt Rate > 60; Glucose Fasting 156 mg/dL (60-99); Potassium 3.8 mmol/L (3.3-5.1); Sodium 139 mmol/L (135-145); Total Protein 5.2 g/dL (6.5-8.0)
[2022-06-07 07:26] LABS: B Type Natriuretic Peptide 262 pg/mL (<100)
[2022-06-07 07:48] VITALS: BP 123/73; PULSE 93; RESP 16; TEMP 36.1; O2SAT 96
[2022-06-07] MEDS: Apixaban 5 MG TABLET PO ×2 (08:52→23:16)
[2022-06-07] MEDS: 0.9 % Sodium Chloride Flush 3 ML SYRINGE IVFLUSH ×3 (08:52→18:10)
[2022-06-07] MEDS: Cyanocobalamin (Vitamin B-12) 1,000 MCG TABLET 1000 MCG PO (08:52)
[2022-06-07] MEDS: Cholecalciferol (Vitamin D3) 25 MCG TABLET PO (08:52)
[2022-06-07] MEDS: Ferrous Sulfate 324 MG TABLET.DR PO ×2 (08:52→18:08)
[2022-06-07 11:36] VITALS: BP 120/78; PULSE 95; RESP 18; TEMP 36.9; O2SAT 96
[2022-06-07] MEDS: vancomycin HCL 1,250 MG in 0.9 % Sodium Chloride 250 ML 166.67 MG IV (12:53)
--- NOTE | 2022-06-07 13:22 | P.PNIM_ITS ---
Subjective Subjective Date of Service: 06/07/22 Interval History: Admitted with AFib most likely secondary to lower lobe pneumonia on the right. Rate control adequate Review of Systems Denies chest pain Denies shortness of breath Denies nausea vomiting diarrhea Denies fever chills Physical Exam Vital Signs: Vital Signs: Last Vital Signs Temp 98.4 F 06/07/22 11:36 Pulse 95 06/07/22 11:36 Resp 18 06/07/22 11:36 BP 120/78 06/07/22 11:36 Pulse Ox 96 06/07/22 11:36 O2 Del Method 06/07/22 11:36 O2 Flow Rate 2 06/07/22 11:36 BMI result Body Mass Index 26.2 Const: Other: Awake alert no acute distress Resp: Other: Diminished right lower lobe with consolidated crackles and diffuse expiratory wheezes throughout Cardio: Other: Irregularly irregular; no S4; positive S1-S2; no S3 2/6 systolic murmur best heard at the apex GI: Other: Soft nontender nondistended normoactive bowel sounds Extrem: Other: No edema bilaterally Objective Data Active Medications Acetaminophen (Acetaminophen 325 Mg Tablet) 650 mg PO Q6H PRN PRN Reason: Pain, Mild (Pain Scale 1-3) Apixaban (Apixaban 5 Mg Tablet) 5 mg PO BID [facility] Last Admin: 06/07/22 08:52 Dose: 5 mg Documented By: VICKIE Atorvastatin Calcium (Atorvastatin Calcium 10 Mg Tablet) 10 mg PO BEDTIME [facility] Last Admin: 06/06/22 19:50 Dose: 10 mg Documented By: BHARATH Cyanocobalamin (Cyanocobalamin (Vitamin B-12) 1,000 Mcg Tablet) 1,000 mcg PO DAILY [facility] Last Admin: 06/07/22 08:52 Dose: 1,000 mcg Documented By: VICKIE Docusate Sodium (Docusate Sodium 100 Mg Capsule) 100 mg PO DAILY PRN PRN Reason: Constipation Ferrous Sulfate (Ferrous Sulfate 324 Mg Tablet.) 324 mg PO BIDWM [facility] Last Admin: 06/07/22 08:52 Dose: 324 mg Documented By: VICKIE Guaifenesin (Guaifenesin 200 Mg/10 Ml 10 Ml Liquid) 10 ml PO Q6H PRN PRN Reason: Cough Diltiazem HCl 125 mg/ Sodium (Chloride) 125 mls @ 0 mls/hr IVCONT .Q0M [facility]; Protocol Last Titration: 06/07/22 08:52 Dose: 0 mg/hr, 0 mls/hr Documented By: VICKIE Cefepime HCl 2 gm/ Sodium (Chloride) 50 mls @ 100 mls/hr IV Q8H [facility] Last Infusion: 06/07/22 12:51 Dose: 0 mls/hr Documented By: LUIS Vancomycin HCl 1,250 mg/ (Sodium Chloride) 250 mls @ 166.667 mls/hr IV Q24H [facility] Last Admin: 06/07/22 12:53 Dose: 166.67 mls/hr Documented By: LUIS Omeprazole (Omeprazole 40 Mg Capsule.Dr) 40 mg PO DAILY@0630 [facility] Last Admin: 06/07/22 05:25 Dose: 40 mg Documented By: BHARATH Ondansetron HCl (Ondansetron Hcl 4 Mg/2 Ml Vial) 4 mg IVPUSH Q8H PRN PRN Reason: Nausea and Vomiting Pharmacy Consult (Consult Rx Perform Med Rec) 1 each MISCELLANE ONCE PRN PRN Reason: Consult order Pharmacy Consult (Consult Rx Vancomycin Dosing) 1 each MISCELLANE DAILY PRN PRN Reason: Consult order Sodium Chloride (0.9 % Sodium Chloride Flush 3 Ml Syringe) 3 ml IVFLUSH QSHIFT [facility] Last Admin: 06/07/22 12:53 Dose: 3 ml Documented By: LUIS Vitamin D (Cholecalciferol (Vitamin D3) 25 Mcg Tablet) 25 mcg PO DAILY [facility] Last Admin: 06/07/22 08:52 Dose: 25 mcg Documented By: VICKIE Labs 06/07/22 06:54 06/07/22 06:54 Labs: Laboratory Results - last 24 hr 06/07/22 06/07/22 06/07/22 06:54 06:54 06:54 MCV 88.1 MCH 28.7 MCHC 32.6 RDW 12.9 Plt Count 271 MPV 9.9 Immature Gran % (Auto) 0.6 H Neut % (Auto) 88.0 H Lymph % (Auto) 9.6 L [place] % (Auto) 1.7 L Eos % (Auto) 0.0 Baso % (Auto) 0.1 Lymph # (Auto) 1.5 [place] # (Auto) 0.3 Eos # (Auto) 0.0 Baso # (Auto) 0.0 Abs Immat Gran (auto) 0.10 H Absolute Neuts (auto) 13.8 H Absolute Nucleated RBC 0.000 Nucleated RBC % (auto) 0.0 Anion Gap 13 Estim Creat Clear Calc 69.3 Estimated GFR > 60 Fasting Glucose 156 H Calcium 8.1 L Total Bilirubin 0.6 AST 21 ALT 22 Alkaline Phosphatase 43 B-Natriuretic Peptide 262 H Total Protein 5.2 L Albumin 2.8 L Microbiology Microbiology Results: Microbiology 06/05/22 09:06 Blood Culture - Preliminary Blood - Venous No growth after 48 hours. 06/05/22 09:06 Blood Culture - Preliminary Blood - Venous No growth after 48 hours. 06/05/22 15:09 Urine Culture - Final Urine clean catch - Urine cabrera top Assessment and Plan (1) Atrial fibrillation with RVR: Status: Acute (2) Right lower lobe pneumonia: Status: Acute Plan 77-year-old female with history Sevilla's esophagus, hypertension, history of bleeding gastric ulcer and AVMs requiring multiple blood transfusions in 02/11 and 11/12, osteopenia, hypercholesterolemia, vitamin B12 deficiency, and vitamin- D deficiency admitted for AFib with RVR 1.New onset atrial fibrillation with rapid ventricular response -control with Cardizem drip at 10 milligrams/hour -2D echo demonstrates LVEF approximately 70% with dilated left atria -continue Eliquis 2. Right lower lobe pneumonia -vanco/cefepime(3) -titrate O2 to maintain sats greater than equal 90% -p.r.nKelly Turner -add pulse dose steroids 3.History UGIB -Dr. Herrera' note reviewed -no contraindication to anticoagulation -continue PPI Eliquis DNR/DNI Patient requires ongoing hospitalization for IV Cardizem to control atrial fibrillation IV antibiotics to treat right lower known pneumonia Time Spent With Patient Time: Total time managing care of this patient today ____ minutes. Quality Stroke Does the patient have a stroke diagnosis?: No VTE Prior VTE?: No VTE Risk Level:: Medical - moderate - high VTE Device Contraindication: Treatment Not Indicated VTE Drug Contraindication: N/A - Med Ordered
--- NOTE | 2022-06-07 15:00 | PM.PNCARD ---
Subjective Subjective Date of Service: 06/07/22 Interval history: Seen and examined at bedside Saying she is SOB with minimal activity today. HR is better controlled. Still in Afib. Physical Exam Vital Signs: Last Vital Signs Temp 98.4 F 06/07/22 11:36 Pulse 95 06/07/22 11:36 Resp 18 06/07/22 11:36 BP 120/78 06/07/22 11:36 Pulse Ox 96 06/07/22 11:36 O2 Del Method 06/07/22 11:36 O2 Flow Rate 2 06/07/22 11:36 BMI result Body Mass Index 26.2 GENERAL APPEARANCE: in no acute distress, pleasant. On supplemental oxygen. NECK: no carotid bruit, + jugular venous distention. SKIN: no suspicious lesions, warm and dry. HEART: Harsh systolic murmur all over the precordium, irregular rate and rhythm. Tachycardic. LUNGS: clear to auscultation bilaterally. ABDOMEN: soft, nontender. EXTREMITIES: no edema. PERIPHERAL PULSES: equal. NEUROLOGIC: No gross deficits, AAO X 3 Objective Labs and Meds 06/07/22 06:54 06/07/22 06:54 Lab results: Laboratory Results - last 24 hr 06/07/22 06/07/22 06/07/22 06:54 06:54 06:54 WBC 15.7 H RBC 3.03 L Hgb 8.7 L Hct 26.7 L MCV 88.1 MCH 28.7 MCHC 32.6 RDW 12.9 Plt Count 271 MPV 9.9 Immature Gran % (Auto) 0.6 H Neut % (Auto) 88.0 H Lymph % (Auto) 9.6 L [place] % (Auto) 1.7 L Eos % (Auto) 0.0 Baso % (Auto) 0.1 Lymph # (Auto) 1.5 [place] # (Auto) 0.3 Eos # (Auto) 0.0 Baso # (Auto) 0.0 Abs Immat Gran (auto) 0.10 H Absolute Neuts (auto) 13.8 H Absolute Nucleated RBC 0.000 Nucleated RBC % (auto) 0.0 Sodium 139 Potassium 3.8 Chloride 110 H Carbon Dioxide 20 L Anion Gap 13 BUN 12 Creatinine 0.71 Estim Creat Clear Calc 69.3 Estimated GFR > 60 Fasting Glucose 156 H Calcium 8.1 L Total Bilirubin 0.6 AST 21 ALT 22 Alkaline Phosphatase 43 B-Natriuretic Peptide 262 H Total Protein 5.2 L Albumin 2.8 L Progress Note: A&P Assessment and plan (1) Hypertrophic cardiomyopathy: Status: Acute (2) Right lower lobe pneumonia: Status: Acute (3) Atrial fibrillation with RVR: Status: Acute Plan 77 year old female with HCM and Afib with RVR. She has PNA and is on antibiotics. Mildly overloaded today. Stop IV fluids. c/w Diltiazem gtt and if HR better controlled then transitioned to PO. Apixaban for AC. No further hemoptysis. We will follow along. Time Spent With Patient Time: Total time managing care of this patient today ____ minutes. Progress Note: Quality Stroke Does the patient have a stroke diagnosis?: No Procedures Date of Service Date of Service: 06/07/22
[2022-06-07 15:29] VITALS: BP 121/81; PULSE 99; RESP 18; TEMP 36.4; O2SAT 98
[2022-06-07 20:00] VITALS: BP 142/78; PULSE 107; RESP 20; TEMP 36.6; O2SAT 97
[2022-06-07] MEDS: Atorvastatin Calcium 10 MG TABLET PO (23:16)
[2022-06-07 23:53] VITALS: BP 124/82; PULSE 113; RESP 20; TEMP 36.6; O2SAT 98
[2022-06-08 03:13] VITALS: BP 134/76; PULSE 118; RESP 20; TEMP 36.1; O2SAT 99
[2022-06-08] MEDS: Omeprazole 40 MG CAPSULE.DR PO (05:28)
[2022-06-08] MEDS: cefEPime HCl 2 GM in 0.9 % Sodium Chloride 50 ML IV ×3 (05:33→22:06)
[2022-06-08 06:36] LABS: Basophils Percent Auto 0.1 % (0-2); Hematocrit 28.7 % (37.0-47.0); Hemoglobin 9.1 g/dl (12.0-16.0); Imm Gran Pct Auto 1.2 % (0.0-0.4); Lymphocytes Absolute Auto 1.9 X10*3/uL (1.2-4.9); Lymphocytes Percent Auto 7.9 % (20-40); MANUAL DIFF FLAG SCAN; Mean Corpuscular HGB Conc 31.7 g/dl (31.0-35.0); Mean Corpuscular Hemoglobin 28.1 pg (27.0-33.0); Mean Corpuscular Volume 88.6 fL (80.0-98.0); Mean Platelet Volume 9.8 fL (9.4-12.3); Monocytes Absolute Auto 1.2 X10*3/uL (0.1-1.2); Monocytes Percent Auto 4.8 % (2-11); Neutrophils Absolute Auto 20.9 x10*3/uL (2.0-8.3); Platelet Count 335 X10*3/uL (160-400); Red Blood Count 3.24 X10*6/uL (4.20-5.50); Red Cell Distribution Width 12.9 % (11.0-16.0); SCAN SMEAR FLAG 1; White Blood Count 24.3 X10*3/uL (4.8-10.8)
[2022-06-08 06:54] LABS: Alanine Aminotransferase 53 U/L (0-31); Albumin Level 2.9 g/dL (3.5-5.0); Alkaline Phosphatase 43 U/L (39-117); Anion Gap 12 (12-20); Aspartate Amino Transferase 43 U/L (5-31); Bilirubin Total 0.4 mg/dL (0.0-1.0); Blood Urea Nitrogen 18 mg/dL (9-16); Calcium 8.4 mg/dL (8.4-10.2); Carbon Dioxide 22 mmol/L (22-29); Chloride 113 mmol/L (96-108); Creatinine Clr Calc Pharmacy 65.6; Estimated Glomerular Filt Rate > 60; Glucose Fasting 121 mg/dL (60-99); Potassium 4.3 mmol/L (3.3-5.1); Sodium 143 mmol/L (135-145); Total Protein 5.3 g/dL (6.5-8.0)
[2022-06-08 07:06] LABS: SLIDE REVIEW VERIFIED
[2022-06-08 07:14] VITALS: BP 123/89; PULSE 106; RESP 20; TEMP 36.1; O2SAT 95
[2022-06-08] MEDS: dilTIAZem HCL 125 MG in 0.9 % Sodium Chloride 100 ML 10 MG IVCONT (09:25)
[2022-06-08] MEDS: Cholecalciferol (Vitamin D3) 25 MCG TABLET PO (09:30)
[2022-06-08] MEDS: 0.9 % Sodium Chloride Flush 3 ML SYRINGE IVFLUSH ×3 (09:30→22:07)
[2022-06-08] MEDS: Ferrous Sulfate 324 MG TABLET.DR PO ×2 (09:30→16:16)
[2022-06-08] MEDS: Apixaban 5 MG TABLET PO ×2 (09:30→22:05)
[2022-06-08] MEDS: Cyanocobalamin (Vitamin B-12) 1,000 MCG TABLET 1000 MCG PO (09:30)
--- NOTE | 2022-06-08 10:34 | PC.NURSE ---
after starting cardizem gtt at 10 ml/hr. pt HR 110s-120s. pt is asymptomatic. double check per protocol and Dr Frances increase to 15 ml/hr.
[2022-06-08 10:48] LABS: Vancomycin Trough 7.6 mcg/mL (10.0-20.0)
--- NOTE | 2022-06-08 11:01 | HE.PHANOTE ---
RE:vanco trough on 06/08 came back at 7.6; increased dose to 1500mg Q24H with predicted AUC 443mg/L, trough 10.9. Next level to be drawn 06/10/22 @1000
--- NOTE | 2022-06-08 11:22 | P.PNIM_ITS ---
Subjective Subjective Date of Service: 06/08/22 Interval History: Tachycardic off drip this a.m.. .. Drip restarted. Feels slightly better; wheezy today Review of Systems Denies chest pain Denies shortness of breath Denies nausea vomiting diarrhea Denies fever chills Physical Exam Vital Signs: Vital Signs: Last Vital Signs Temp 96.9 F 06/08/22 07:14 Pulse 106 H 06/08/22 07:14 Resp 20 06/08/22 07:14 BP 123/89 06/08/22 07:14 Pulse Ox 95 06/08/22 07:14 O2 Del Method 06/08/22 07:14 O2 Flow Rate 2 06/08/22 07:14 BMI result Body Mass Index 26.2 Const: Other: Awake alert no acute distress Resp: Other: Diminished right lower lobe with consolidated crackles and diffuse expiratory wheezes throughout Cardio: Other: Irregularly irregular; no S4; positive S1-S2; no S3 2/6 systolic murmur best heard at the apex GI: Other: Soft nontender nondistended normoactive bowel sounds Extrem: Other: No edema bilaterally Objective Data Active Medications Acetaminophen (Acetaminophen 325 Mg Tablet) 650 mg PO Q6H PRN PRN Reason: Pain, Mild (Pain Scale 1-3) Apixaban (Apixaban 5 Mg Tablet) 5 mg PO BID [facility] Last Admin: 06/08/22 09:30 Dose: 5 mg Documented By: ALEXA Atorvastatin Calcium (Atorvastatin Calcium 10 Mg Tablet) 10 mg PO BEDTIME [facility] Last Admin: 06/07/22 23:16 Dose: 10 mg Documented By: MARIAM Cyanocobalamin (Cyanocobalamin (Vitamin B-12) 1,000 Mcg Tablet) 1,000 mcg PO DAILY [facility] Last Admin: 06/08/22 09:30 Dose: 1,000 mcg Documented By: ALEXA Docusate Sodium (Docusate Sodium 100 Mg Capsule) 100 mg PO DAILY PRN PRN Reason: Constipation Ferrous Sulfate (Ferrous Sulfate 324 Mg Tablet.) 324 mg PO BIDWM [facility] Last Admin: 06/08/22 09:30 Dose: 324 mg Documented By: ALEXA Guaifenesin (Guaifenesin 200 Mg/10 Ml 10 Ml Liquid) 10 ml PO Q6H PRN PRN Reason: Cough Cefepime HCl 2 gm/ Sodium (Chloride) 50 mls @ 100 mls/hr IV Q8H [facility] Last Infusion: 06/08/22 06:43 Dose: 0 mls/hr Documented By: MARIAM Diltiazem HCl 125 mg/ Sodium (Chloride) 125 mls @ 0 mls/hr IVCONT .Q0M [facility]; Protocol Last Titration: 06/08/22 10:33 Dose: 15 mg/hr, 15 mls/hr Documented By: ALEXA Vancomycin HCl 1,500 mg/ (Sodium Chloride) 500 mls @ 333.333 mls/hr IV Q24H [facility] Omeprazole (Omeprazole 40 Mg Capsule.Dr) 40 mg PO DAILY@0630 [facility] Last Admin: 06/08/22 05:28 Dose: 40 mg Documented By: MARIAM Ondansetron HCl (Ondansetron Hcl 4 Mg/2 Ml Vial) 4 mg IVPUSH Q8H PRN PRN Reason: Nausea and Vomiting Pharmacy Consult (Consult Rx Perform Med Rec) 1 each MISCELLANE ONCE PRN PRN Reason: Consult order Pharmacy Consult (Consult Rx Vancomycin Dosing) 1 each MISCELLANE DAILY PRN PRN Reason: Consult order Sodium Chloride (0.9 % Sodium Chloride Flush 3 Ml Syringe) 3 ml IVFLUSH QSHIFT [facility] Last Admin: 06/08/22 09:30 Dose: 3 ml Documented By: ALEXA Vitamin D (Cholecalciferol (Vitamin D3) 25 Mcg Tablet) 25 mcg PO DAILY [facility] Last Admin: 06/08/22 09:30 Dose: 25 mcg Documented By: ALEXA Labs 06/08/22 06:08 06/08/22 06:08 Labs: Laboratory Results - last 24 hr 06/08/22 06/08/22 06/08/22 06:08 06:08 09:55 MCV 88.6 MCH 28.1 MCHC 31.7 RDW 12.9 Plt Count 335 MPV 9.8 Immature Gran % (Auto) 1.2 H Neut % (Auto) 86.0 H Lymph % (Auto) 7.9 L [place] % (Auto) 4.8 Eos % (Auto) 0.0 Baso % (Auto) 0.1 Lymph # (Auto) 1.9 [place] # (Auto) 1.2 Eos # (Auto) 0.0 Baso # (Auto) 0.0 Abs Immat Gran (auto) 0.30 H Absolute Neuts (auto) 20.9 H Absolute Nucleated RBC 0.000 Nucleated RBC % (auto) 0.0 Smear Tech's Comments VERIFIED Anion Gap 12 Estim Creat Clear Calc 65.6 Estimated GFR > 60 Fasting Glucose 121 H Calcium 8.4 Total Bilirubin 0.4 AST 43 H ALT 53 H Alkaline Phosphatase 43 Total Protein 5.3 L Albumin 2.9 L Vancomycin Trough 7.6 L Microbiology Microbiology Results: Microbiology 06/05/22 09:06 Blood Culture - Preliminary Blood - Venous No growth after 48 hours. 06/05/22 09:06 Blood Culture - Preliminary Blood - Venous No growth after 48 hours. Assessment and Plan (1) Atrial fibrillation with RVR: Status: Acute (2) Right lower lobe pneumonia: Status: Acute Plan 77-year-old female with history Sevilla's esophagus, hypertension, history of bleeding gastric ulcer and AVMs requiring multiple blood transfusions in 02/11 and 11/12, osteopenia, hypercholesterolemia, vitamin B12 deficiency, and vitamin- D deficiency admitted for AFib with RVR 1.New onset atrial fibrillation with rapid ventricular response -Cardizem drip at 10 milligrams/hour.. Switch to p.o. when adequate control -continue Eliquis 2. Right lower lobe pneumonia -vanco/cefepime(4) -titrate O2 to maintain sats greater than equal 90% -p.r.n. DuoNebs -add pulse dose steroids -consult ID(increase in WBC) 3.History UGIB -Dr. Herrera' note reviewed -no contraindication to anticoagulation -continue PPI Eliquis DNR/DNI Patient requires ongoing hospitalization for IV Cardizem to control atrial fibrillation IV antibiotics to treat right lower known pneumonia Time Spent With Patient Time: Total time managing care of this patient today ____ minutes. Quality Stroke Does the patient have a stroke diagnosis?: No VTE Prior VTE?: No VTE Risk Level:: Medical - moderate - high VTE Device Contraindication: Treatment Not Indicated VTE Drug Contraindication: N/A - Med Ordered
[2022-06-08 11:26] VITALS: BP 128/72; PULSE 110; RESP 20; TEMP 36.6; O2SAT 98
[2022-06-08] MEDS: vancomycin HCL 1,500 MG in 0.9 % Sodium Chloride 500 ML 333.33 MG IV (12:13)
[2022-06-08] MEDS: methylPREDNISolone Sod Succ 125 MG/2 ML VIAL 60 MG IVPUSH ×3 (12:13→23:44)
--- NOTE | 2022-06-08 12:47 | W.PM.IDCN ---
History of Present Illness Data of Consult Service Date: 06/08/22 Requesting physician: Rohit Frances Primary Care Provider: Colt Teran MD HPI Reason for consult: leukocytosis,lung infiltrate She presents on 06/05 to ER with profound weakness started on 06/04 as well as temperature to 102 and minimally productive cough. She had presented to ER on 05/23 with cough and weakness and had CXR PA and Lateral LLL pneumonia. She received steroids and Doxycycline whcih she finished and last steroid taken on 05/31 and finished antibiotics. She felt tired and pain in left lung and didnt feel better but still weak. She has chest XR and CT done on 06/05 shows patchy airspace consolidation and groundglass opacities RLL and small effusion, She had leukocytosis of 26,000 on admission and then 15 etelvina here and now up to 20,000 again. She feels weak and slightly better and has no diarrhea or rash. She has allergy to piperacillin/tazobactam rapidly spreading rash years ago. Her partner felt ill as well. She is now Cefepime day 4 and Vancomycin day 1 started today. Review of Systems Review of Systems: Yes all other systems are reviewed and are negative PMFSH Past Medical History Medical History Anemia Sevilla's esophagus Benign essential hypertension Cardiac murmur Gastric ulcer Hiatal hernia History of blood transfusion Osteopenia Overweight (BMI 25.0-29.9) Primary osteoarthritis of hand Pure hypercholesterolemia Vitamin B12 deficiency Vitamin D deficiency Family History Family History Father Hypertension Mother Stroke Family history: reviewed and not pertinent Surgical History Surgical History History of appendectomy History of esophagogastroduodenoscopy (EGD) History of hysterectomy Social History Social History Household Members: Spouse Housing: House Do you presently have visiting nurse or other home services: No Alcohol intake: never Patient Tobacco Use Status: Never used Tobacco Smoked in Last 30 Days: No e-Cigarette/Vaping Use: Never Used Second Hand Smoke Exposure: No Use of substances other than those prescribed or required for medical reasons: No Currently Displaying Signs/Symptoms of Drug Intoxication Withdrawal: No Have you been hit, kicked, punched, or otherwise hurt by someone within the past year? If so, by whom?: No Do you feel safe in your current relationship?: Yes Is there a partner from a previous relationship who is making you feel unsafe now?: No Are you made to feel afraid or neglected: No Advance Directives: Yes Advance Directives on File: Yes Advance Directives Date on File: 01/22/21 Do you have thoughts of harming others: None Do you have a plan to hurt others: No Plan Recently lost weight without trying: Unsure Eating poorly because of decreased appetite: Yes Nutrition Risks: No Nutritional Risk Patient : No : No Poor oral hygiene: No service: No Current occupational status: retired Cognitive needs: No Hearing needs: No Vision needs: Yes (glasses) Meds Allergies Allergy/AdvReac Type Severity Reaction Status Date / Time enflurane [ENFLURANE] Allergy Severe Per Verified 04/26/22 16:14 Patient Liver toxicity piperacillin [Zosyn] Allergy Unknown Unknown Verified 04/26/22 16:14 tazobactam [Zosyn] Allergy Unknown Unknown Verified 04/26/22 16:14 Active Medications: Current Medications Acetaminophen (Acetaminophen 325 Mg Tablet) 650 mg PO Q6H PRN PRN Reason: Pain, Mild (Pain Scale 1-3) Apixaban (Apixaban 5 Mg Tablet) 5 mg PO BID [facility] Last Admin: 06/08/22 09:30 Dose: 5 mg Atorvastatin Calcium (Atorvastatin Calcium 10 Mg Tablet) 10 mg PO BEDTIME [facility] Last Admin: 06/07/22 23:16 Dose: 10 mg Cyanocobalamin (Cyanocobalamin (Vitamin B-12) 1,000 Mcg Tablet) 1,000 mcg PO DAILY [facility] Last Admin: 06/08/22 09:30 Dose: 1,000 mcg Docusate Sodium (Docusate Sodium 100 Mg Capsule) 100 mg PO DAILY PRN PRN Reason: Constipation Ferrous Sulfate (Ferrous Sulfate 324 Mg Tablet.Dr) 324 mg PO BIDWM [facility] Last Admin: 06/08/22 09:30 Dose: 324 mg Guaifenesin (Guaifenesin 200 Mg/10 Ml 10 Ml Liquid) 10 ml PO Q6H PRN PRN Reason: Cough Cefepime HCl 2 gm/ Sodium (Chloride) 50 mls @ 100 mls/hr IV Q8H [facility] Last Infusion: 06/08/22 06:43 Dose: Infused Diltiazem HCl 125 mg/ Sodium (Chloride) 125 mls @ 0 mls/hr IVCONT .Q0M [facility]; Protocol Last Titration: 06/08/22 10:33 Dose: 15 mg/hr, 15 mls/hr Vancomycin HCl 1,500 mg/ (Sodium Chloride) 500 mls @ 333.333 mls/hr IV Q24H [facility] Last Admin: 06/08/22 12:13 Dose: 333.33 mls/hr Methylprednisolone Sodium Succinate (Methylprednisolone Sod Succ 125 Mg/2 Ml Vial) 60 mg IVPUSH Q6H [facility] Last Admin: 06/08/22 12:13 Dose: 60 mg Omeprazole (Omeprazole 40 Mg Capsule.Dr) 40 mg PO DAILY@06 [facility] Last Admin: 06/08/22 05:28 Dose: 40 mg Ondansetron HCl (Ondansetron Hcl 4 Mg/2 Ml Vial) 4 mg IVPUSH Q8H PRN PRN Reason: Nausea and Vomiting Pharmacy Consult (Consult Rx Perform Med Rec) 1 each MISCELLANE ONCE PRN PRN Reason: Consult order Pharmacy Consult (Consult Rx Vancomycin Dosing) 1 each MISCELLANE DAILY PRN PRN Reason: Consult order Sodium Chloride (0.9 % Sodium Chloride Flush 3 Ml Syringe) 3 ml IVFLUSH QSHIFT [facility] Last Admin: 06/08/22 09:30 Dose: 3 ml Vitamin D (Cholecalciferol (Vitamin D3) 25 Mcg Tablet) 25 mcg PO DAILY [facility] Last Admin: 06/08/22 09:30 Dose: 25 mcg Home Medications Medication Instructions Recorded Confirmed Last Taken Type ferrous sulfate 324 mg (65 mg 324 mg PO DAILY 08/10/21 06/05/22 06/05/22 History iron) tablet,delayed release omeprazole 40 mg capsule,delayed 40 mg PO DAILY@0630 08/10/21 06/05/22 06/05/22 History release atorvastatin 10 mg tablet 10 mg PO BEDTIME 06/05/22 06/05/22 06/04/22 History Physical Exam Vital Signs: Vital Signs: Last Vital Signs Temp 97.8 F 06/08/22 11:26 Pulse 110 H 06/08/22 11:26 Resp 20 06/08/22 11:26 BP 128/72 06/08/22 11:26 Pulse Ox 98 06/08/22 11:26 O2 Del Method 06/08/22 11:26 O2 Flow Rate 2 06/08/22 11:26 BMI result Body Mass Index 26.2 Const: General: cooperative HEENT: Head: Yes normal to inspection Face and sinus: Yes normal facial exam Mouth: Normal oral and palatal mucosa present Teeth and gingiva: dentition normal Eyes: General: appearance normal, both eyes and all related structures Pupils: Equal, round and reactive pupils present Resp: Other: rhonchi bases Effort & Inspection: normal respiratory effort Cardio: Other: IRRR, 2/6 JABIER Rhythm: abnormal rhythm GI: Palpation (GI): Soft to palpation and nontender : General: Yes no CVA tenderness Back/Spine/Pelvis: Back: no CVA tenderness Skin: General skin exam: no rashes or lesions noted Neuro: General: moves all extremities Cranial nerves: Yes Equal, round and reactive pupils present Extrem: General: Yes normal to inspection Psych: Appearance: grossly normal Results Labs 06/08/22 06:08 06/08/22 06:08 Labs: Short CBC 06/08/22 Range/Units 06:08 WBC 24.3 H (4.8-10.8) X10*3/uL Hgb 9.1 L (12.0-16.0) g/dl Hct 28.7 L (37.0-47.0) % Plt Count 335 (160-400) X10*3/uL BMP 06/08/22 06:08 Sodium 143 Potassium 4.3 Chloride 113 H Carbon Dioxide 22 BUN 18 H Creatinine 0.75 Calcium 8.4 Liver Function 06/08/22 Range/Units 06:08 Total Bilirubin 0.4 (0.0-1.0) mg/dL AST 43 H (5-31) U/L ALT 53 H (0-31) U/L Alkaline Phosphatase 43 (39-117) U/L Albumin 2.9 L (3.5-5.0) g/dL Microbiology Microbiology Results: Microbiology 06/05/22 09:06 Blood - Venous Blood Culture - Preliminary No growth after 48 hours. 06/05/22 09:06 Blood - Venous Blood Culture - Preliminary No growth after 48 hours. 06/05/22 15:09 Urine clean catch - Urine cabrera top Urine Culture - Final Assessment and Plan (1) Right lower lobe pneumonia: Status: Acute likely this is strep pneumonia or even MRSA or possible gram negative,no culture seen blood cultures pending probably some resistance to Doxycycline She has received full treatment for any atypical pathogen (2) Leukocytosis: Status: Acute probably leukocytosis leukemoid reaction from illness and steroid contribution it has fluctuated since admission possible drug resistant pneumonia such as gram negative or strep pneumonia doubt PE (3) Atrial fibrillation with RVR: Status: Acute Plan Continue Cefepime and Vancomycin possible 5-7 days IV check nares MRSA and stop Vancomycin if negative check urine strep pneumonia,legionella check blood cultures may continue steroids Time Spent With Patient Time: Total time managing care of this patient today ____ minutes.
[2022-06-08 15:55] VITALS: BP 121/62; PULSE 100; RESP 20; TEMP 36.6; O2SAT 99
--- NOTE | 2022-06-08 16:01 | PM.PNCARD ---
Subjective Subjective Date of Service: 06/08/22 Interval history: Seen examined at bedside. Saying that her breathing is better today. Denies significant palpitations. Telemetry is showing atrial fibrillation and heart rates are better controlled but she is currently on the Cardizem drip. Physical Exam Vital Signs: Last Vital Signs Temp 97.9 F 06/08/22 15:55 Pulse 100 06/08/22 15:55 Resp 20 06/08/22 15:55 BP 121/62 06/08/22 15:55 Pulse Ox 99 06/08/22 15:55 O2 Del Method 06/08/22 15:55 O2 Flow Rate 2 06/08/22 15:55 BMI result Body Mass Index 26.2 GENERAL APPEARANCE: in no acute distress, pleasant. On supplemental oxygen. NECK: no carotid bruit, + jugular venous distention. SKIN: no suspicious lesions, warm and dry. HEART: Harsh systolic murmur all over the precordium, irregular rate and rhythm. Tachycardic. LUNGS: clear to auscultation bilaterally. ABDOMEN: soft, nontender. EXTREMITIES: no edema. PERIPHERAL PULSES: equal. NEUROLOGIC: No gross deficits, AAO X 3 Objective Labs and Meds 06/08/22 06:08 06/08/22 06:08 Lab results: Laboratory Results - last 24 hr 06/08/22 06/08/22 06/08/22 06:08 06:08 09:55 WBC 24.3 H RBC 3.24 L Hgb 9.1 L Hct 28.7 L MCV 88.6 MCH 28.1 MCHC 31.7 RDW 12.9 Plt Count 335 MPV 9.8 Immature Gran % (Auto) 1.2 H Neut % (Auto) 86.0 H Lymph % (Auto) 7.9 L [place] % (Auto) 4.8 Eos % (Auto) 0.0 Baso % (Auto) 0.1 Lymph # (Auto) 1.9 [place] # (Auto) 1.2 Eos # (Auto) 0.0 Baso # (Auto) 0.0 Abs Immat Gran (auto) 0.30 H Absolute Neuts (auto) 20.9 H Absolute Nucleated RBC 0.000 Nucleated RBC % (auto) 0.0 Smear Tech's Comments VERIFIED Sodium 143 Potassium 4.3 Chloride 113 H Carbon Dioxide 22 Anion Gap 12 BUN 18 H Creatinine 0.75 Estim Creat Clear Calc 65.6 Estimated GFR > 60 Fasting Glucose 121 H Calcium 8.4 Total Bilirubin 0.4 AST 43 H ALT 53 H Alkaline Phosphatase 43 Total Protein 5.3 L Albumin 2.9 L Vancomycin Trough 7.6 L Imaging Radiologist's impression: Impressions Chest X-Ray 06/08/22 09:31 IMPRESSION: Very small right pleural effusion and mild right basilar atelectasis correlating with CT findings. No new abnormality. Progress Note: A&P Assessment and plan (1) Hypertrophic cardiomyopathy: Status: Acute (2) Right lower lobe pneumonia: Status: Acute (3) Atrial fibrillation with RVR: Status: Acute Plan Pleasant 77-year-old female with hypertrophic cardiomyopathy and AFib with RVR in the setting of pneumonia. She is improving from pneumonia point of view her breathing is improving. She received IV fluids to keep her pre load well optimized as she had LVOT obstruction previously. She appears to be mildly volume overloaded. Give 20 mg IV Lasix. Hold further IV fluids. Give 240 mg of Cardizem CD and stop the Cardizem drip. We will titrate the medications orally to see if heart rate gets well controlled and she can be discharged home. On the other hand if she does not improve then she will require BRIGIDO cardioversion. Thank you for allowing me to participate in the care of your patient. Please feel free to contact me if you have any questions. Time Spent With Patient Time: Total time managing care of this patient today ____ minutes. Progress Note: Quality Stroke Does the patient have a stroke diagnosis?: No Procedures Date of Service Date of Service: 06/08/22
[2022-06-08] MEDS: dilTIAZem HCL CD 240 MG CAP.ER.DEG PO (16:16)
[2022-06-08] MEDS: Furosemide 20 MG/2 ML VIAL IVPUSH (16:16)
--- NOTE | 2022-06-08 18:00 | PC.NURSE ---
pt was started on cardizem gtt with good effect for HR. per Dr Frances order, oral cardizem and IV Lasix were given. 1 hour later paused/stopped IV cardizem gtt. pt remain HR 80s
[2022-06-08 18:48] VITALS: BP 130/53; PULSE 100; RESP 18; TEMP 36.4; O2SAT 100
[2022-06-08] MEDS: Atorvastatin Calcium 10 MG TABLET PO (22:05)
[2022-06-09] VITALS (7 sets, daily range): BP systolic 101–136; BP diastolic 50–79; PULSE 65–98; RESP 14–20; TEMP 36.1–36.6; O2SAT 95–98
[2022-06-09] MEDS: Omeprazole 40 MG CAPSULE.DR PO (06:22)
[2022-06-09] MEDS: cefEPime HCl 2 GM in 0.9 % Sodium Chloride 50 ML IV ×3 (06:22→21:55)
[2022-06-09] MEDS: methylPREDNISolone Sod Succ 125 MG/2 ML VIAL 60 MG IVPUSH ×4 (06:22→23:37)
[2022-06-09 06:29] LABS: MANUAL DIFF FLAG NO
[2022-06-09 06:36] LABS: Basophils Percent Auto 0.1 % (0-2); Hematocrit 26.8 % (37.0-47.0); Hemoglobin 8.3 g/dl (12.0-16.0); Imm Gran Abs Auto 0.14 X10*3/uL (0.00-0.03); Imm Gran Pct Auto 0.9 % (0.0-0.4); Lymphocytes Absolute Auto 1.7 X10*3/uL (1.2-4.9); Lymphocytes Percent Auto 10.3 % (20-40); Mean Corpuscular Hemoglobin 27.7 pg (27.0-33.0); Mean Corpuscular Volume 89.3 fL (80.0-98.0); Mean Platelet Volume 9.7 fL (9.4-12.3); Monocytes Absolute Auto 0.2 X10*3/uL (0.1-1.2); Monocytes Percent Auto 1.3 % (2-11); Neutrophils Absolute Auto 14.3 x10*3/uL (2.0-8.3); Neutrophils Percent Auto 87.4 % (45-73); Platelet Count 313 X10*3/uL (160-400); Red Cell Distribution Width 12.8 % (11.0-16.0); White Blood Count 16.4 X10*3/uL (4.8-10.8)
[2022-06-09 07:10] LABS: Alanine Aminotransferase 59 U/L (0-31); Albumin Level 2.8 g/dL (3.5-5.0); Alkaline Phosphatase 43 U/L (39-117); Anion Gap 16 (12-20); Aspartate Amino Transferase 33 U/L (5-31); Bilirubin Total 0.4 mg/dL (0.0-1.0); Blood Urea Nitrogen 20 mg/dL (9-16); Calcium 8.1 mg/dL (8.4-10.2); Carbon Dioxide 21 mmol/L (22-29); Chloride 110 mmol/L (96-108); Creatinine Clr Calc Pharmacy 66.5; Estimated Glomerular Filt Rate > 60; Glucose Fasting 133 mg/dL (60-99); Potassium 4.1 mmol/L (3.3-5.1); Sodium 143 mmol/L (135-145); Total Protein 5.1 g/dL (6.5-8.0)
[2022-06-09] MEDS: Cyanocobalamin (Vitamin B-12) 1,000 MCG TABLET 1000 MCG PO (09:12)
[2022-06-09] MEDS: 0.9 % Sodium Chloride Flush 3 ML SYRINGE IVFLUSH ×2 (09:12→17:19)
[2022-06-09] MEDS: dilTIAZem HCL CD 240 MG CAP.ER.DEG PO (09:12)
[2022-06-09] MEDS: Apixaban 5 MG TABLET PO ×2 (09:12→20:31)
[2022-06-09] MEDS: Ferrous Sulfate 324 MG TABLET.DR PO ×2 (09:12→17:18)
[2022-06-09] MEDS: Cholecalciferol (Vitamin D3) 25 MCG TABLET PO (09:13)
[2022-06-09 10:01] LABS: MRSA Nasal PCR NEGATIVE (Negative); SA Nasal PCR NEGATIVE (Negative)
[2022-06-09] MEDS: dilTIAZem HCL 50 MG/10 ML VIAL 10 MG IVPUSH (10:14)
--- NOTE | 2022-06-09 12:22 | P.PNCA_ITS ---
Subjective Subjective Date of Service: 06/09/22 Interval history: Seen and examined at bedside. Saying breathing is better today. Physical Exam Vital Signs: Last Vital Signs Temp 97.2 F 06/09/22 11:24 Pulse 88 06/09/22 11:24 Resp 18 06/09/22 11:24 BP 128/69 06/09/22 11:24 Pulse Ox 95 06/09/22 11:24 O2 Del Method 06/09/22 11:24 O2 Flow Rate 2 06/09/22 11:24 BMI result Body Mass Index 26.2 GENERAL APPEARANCE: in no acute distress, pleasant. On supplemental oxygen. NECK: no carotid bruit, no significant jugular venous distention. SKIN: no suspicious lesions, warm and dry. HEART: Harsh systolic murmur all over the precordium, irregular rate and rhythm. LUNGS: clear to auscultation bilaterally. ABDOMEN: soft, nontender. EXTREMITIES: no edema. PERIPHERAL PULSES: equal. NEUROLOGIC: No gross deficits, AAO X 3 Objective Labs and Meds 06/09/22 06:03 06/09/22 06:03 Lab results: Laboratory Results - last 24 hr 06/08/22 06/09/22 06/09/22 15:40 06:03 06:03 WBC 16.4 H RBC 3.00 L Hgb 8.3 L Hct 26.8 L MCV 89.3 MCH 27.7 MCHC 31.0 RDW 12.8 Plt Count 313 MPV 9.7 Immature Gran % (Auto) 0.9 H Neut % (Auto) 87.4 H Lymph % (Auto) 10.3 L [place] % (Auto) 1.3 L Eos % (Auto) 0.0 Baso % (Auto) 0.1 Lymph # (Auto) 1.7 [place] # (Auto) 0.2 Eos # (Auto) 0.0 Baso # (Auto) 0.0 Abs Immat Gran (auto) 0.14 H Absolute Neuts (auto) 14.3 H Absolute Nucleated RBC 0.000 Nucleated RBC % (auto) 0.0 Sodium 143 Potassium 4.1 Chloride 110 H Carbon Dioxide 21 L Anion Gap 16 BUN 20 H Creatinine 0.74 Estim Creat Clear Calc 66.5 Estimated GFR > 60 Fasting Glucose 133 H Calcium 8.1 L Total Bilirubin 0.4 AST 33 H ALT 59 H Alkaline Phosphatase 43 Total Protein 5.1 L Albumin 2.8 L Nasal Screen MRSA (PCR) NEGATIVE Nasal S. aureus Screen NEGATIVE Nasal MRSA/S.aureus Interp SEE NOTE Progress Note: A&P Assessment and plan (1) Hypertrophic cardiomyopathy: Status: Acute (2) Right lower lobe pneumonia: Status: Acute (3) Atrial fibrillation with RVR: Status: Acute Plan 77 female with Afib with RVR, hypertrophic cardiomyopathy and pneumonia. She came with pneumonia and AFib with RVR. She has hypertrophic cardiomyopathy with LVOT gradient. No significant systolic anterior motion seen on the echocardiography performed. On Cardizem orally. Heart rates are controlled but she does get tachycardia with ambulation. Continue anticoagulation. Continue rate control for now. If difficult to control heart rates and may require BRIGIDO cardioversion. Thank you for allowing me to participate in the care of your patient. Please feel free to contact me if you have any questions. Time Spent With Patient Time: Total time managing care of this patient today ____ minutes. Progress Note: Quality Stroke Does the patient have a stroke diagnosis?: No Procedures Date of Service Date of Service: 06/09/22
[2022-06-09] MEDS: vancomycin HCL 1,500 MG in 0.9 % Sodium Chloride 500 ML 333.33 MG IV (12:26)
--- NOTE | 2022-06-09 12:30 | PC.NURSE ---
pt was on the commde and tried to have BM. pt tele is Afib with control rate before. HR went up to 160 while she trying to move the BM. MD Dr Frances notified. on assessment, pt felt palpitation, denied sob or chest pain. IV diltiazem 10 mg push was administered. pt felt totally fine.
--- NOTE | 2022-06-09 13:43 | P.PNIM_ITS ---
Subjective Subjective Date of Service: 06/09/22 Interval History: Voices no complaints however rate control variable with movement Review of Systems Denies chest pain Denies shortness of breath Denies nausea vomiting diarrhea Denies fever chills Physical Exam Vital Signs: Vital Signs: Last Vital Signs Temp 97.2 F 06/09/22 11:24 Pulse 88 06/09/22 11:24 Resp 18 06/09/22 11:24 BP 128/69 06/09/22 11:24 Pulse Ox 95 06/09/22 11:24 O2 Del Method 06/09/22 11:24 O2 Flow Rate 2 06/09/22 11:24 BMI result Body Mass Index 26.2 Const: Other: Awake alert no acute distress Resp: Other: Diminished right lower lobe with consolidated crackles and diffuse expiratory wheezes throughout Cardio: Other: Irregularly irregular; no S4; positive S1-S2; no S3 2/6 systolic murmur best heard at the apex GI: Other: Soft nontender nondistended normoactive bowel sounds Extrem: Other: No edema bilaterally Objective Data Active Medications Acetaminophen (Acetaminophen 325 Mg Tablet) 650 mg PO Q6H PRN PRN Reason: Pain, Mild (Pain Scale 1-3) Apixaban (Apixaban 5 Mg Tablet) 5 mg PO BID [facility] Last Admin: 06/09/22 09:12 Dose: 5 mg Documented By: ALEXA Atorvastatin Calcium (Atorvastatin Calcium 10 Mg Tablet) 10 mg PO BEDTIME [facility] Last Admin: 06/08/22 22:05 Dose: 10 mg Documented By: MARIAM Cyanocobalamin (Cyanocobalamin (Vitamin B-12) 1,000 Mcg Tablet) 1,000 mcg PO DAILY [facility] Last Admin: 06/09/22 09:12 Dose: 1,000 mcg Documented By: ALEXA Diltiazem HCl (Diltiazem Hcl Cd 240 Mg Cap.Er.Deg) 240 mg PO DAILY [facility]; Protocol Last Admin: 06/09/22 09:12 Dose: 240 mg Documented By: ALEXA Docusate Sodium (Docusate Sodium 100 Mg Capsule) 100 mg PO DAILY PRN PRN Reason: Constipation Ferrous Sulfate (Ferrous Sulfate 324 Mg Tablet.Dr) 324 mg PO BIDWM [facility] Last Admin: 06/09/22 09:12 Dose: 324 mg Documented By: ALEXA Guaifenesin (Guaifenesin 200 Mg/10 Ml 10 Ml Liquid) 10 ml PO Q6H PRN PRN Reason: Cough Cefepime HCl 2 gm/ Sodium (Chloride) 50 mls @ 100 mls/hr IV Q8H [facility] Last Infusion: 06/09/22 07:00 Dose: 0 mls/hr Documented By: ALEXA Vancomycin HCl 1,500 mg/ (Sodium Chloride) 500 mls @ 333.333 mls/hr IV Q24H [facility] Last Admin: 06/09/22 12:26 Dose: 333.33 mls/hr Documented By: ALEXA Methylprednisolone Sodium Succinate (Methylprednisolone Sod Succ 125 Mg/2 Ml Vial) 60 mg IVPUSH Q6H [facility] Last Admin: 06/09/22 12:25 Dose: 60 mg Documented By: ALEXA Omeprazole (Omeprazole 40 Mg Capsule.Dr) 40 mg PO DAILY@0630 [facility] Last Admin: 06/09/22 06:22 Dose: 40 mg Documented By: MARIAM Ondansetron HCl (Ondansetron Hcl 4 Mg/2 Ml Vial) 4 mg IVPUSH Q8H PRN PRN Reason: Nausea and Vomiting Pharmacy Consult (Consult Rx Perform Med Rec) 1 each MISCELLANE ONCE PRN PRN Reason: Consult order Pharmacy Consult (Consult Rx Vancomycin Dosing) 1 each MISCELLANE DAILY PRN PRN Reason: Consult order Sodium Chloride (0.9 % Sodium Chloride Flush 3 Ml Syringe) 3 ml IVFLUSH QSHIFT [facility] Last Admin: 06/09/22 09:12 Dose: 3 ml Documented By: ALEXA Vitamin D (Cholecalciferol (Vitamin D3) 25 Mcg Tablet) 25 mcg PO DAILY [facility] Last Admin: 06/09/22 09:13 Dose: 25 mcg Documented By: ALEXA Labs 06/09/22 06:03 06/09/22 06:03 Labs: Laboratory Results - last 24 hr 06/08/22 06/09/22 06/09/22 15:40 06:03 06:03 MCV 89.3 MCH 27.7 MCHC 31.0 RDW 12.8 Plt Count 313 MPV 9.7 Immature Gran % (Auto) 0.9 H Neut % (Auto) 87.4 H Lymph % (Auto) 10.3 L [place] % (Auto) 1.3 L Eos % (Auto) 0.0 Baso % (Auto) 0.1 Lymph # (Auto) 1.7 [place] # (Auto) 0.2 Eos # (Auto) 0.0 Baso # (Auto) 0.0 Abs Immat Gran (auto) 0.14 H Absolute Neuts (auto) 14.3 H Absolute Nucleated RBC 0.000 Nucleated RBC % (auto) 0.0 Anion Gap 16 Estim Creat Clear Calc 66.5 Estimated GFR > 60 Fasting Glucose 133 H Calcium 8.1 L Total Bilirubin 0.4 AST 33 H ALT 59 H Alkaline Phosphatase 43 Total Protein 5.1 L Albumin 2.8 L Nasal Screen MRSA (PCR) NEGATIVE Nasal S. aureus Screen NEGATIVE Nasal MRSA/S.aureus Interp SEE NOTE Assessment and Plan (1) Atrial fibrillation with RVR: Status: Acute (2) Right lower lobe pneumonia: Status: Acute Plan 77-year-old female with history Sevilla's esophagus, hypertension, history of bleeding gastric ulcer and AVMs requiring multiple blood transfusions in 02/11 and 11/12, osteopenia, hypercholesterolemia, vitamin B12 deficiency, and vitamin- D deficiency admitted for AFib with RVR; rate control when sedentary however variable with movement 1.New onset atrial fibrillation with rapid ventricular response -successfully weaned off Cardizem drip. .. Oral Cardizem only -question BRIGIDO with cardioversion if unable to control -continue Eliquis 2. Right lower lobe pneumonia -vanco/cefepime(5) -titrate O2 to maintain sats greater than equal 90% -p.r.n. DuoNebs -add pulse dose steroids 3.History UGIB -Dr. Herrera' note reviewed -no contraindication to anticoagulation -continue PPI Eliquis DNR/DNI Patient requires ongoing hospitalization for IV Cardizem to control atrial fibrillation IV antibiotics to treat right lower known pneumonia Time Spent With Patient Time: Total time managing care of this patient today ____ minutes. Quality Stroke Does the patient have a stroke diagnosis?: No VTE Prior VTE?: No VTE Risk Level:: Medical - moderate - high VTE Device Contraindication: Treatment Not Indicated VTE Drug Contraindication: N/A - Med Ordered
[2022-06-09] MEDS: Atorvastatin Calcium 10 MG TABLET PO (20:31)
[2022-06-10 04:00] VITALS: BP 144/67; PULSE 79; RESP 18; TEMP 36.5; O2SAT 96
[2022-06-10] MEDS: Omeprazole 40 MG CAPSULE.DR PO (05:49)
[2022-06-10] MEDS: cefEPime HCl 2 GM in 0.9 % Sodium Chloride 50 ML IV (05:49)
[2022-06-10] MEDS: methylPREDNISolone Sod Succ 125 MG/2 ML VIAL 60 MG IVPUSH (05:50)
[2022-06-10 05:52] LABS: MANUAL DIFF FLAG NO
[2022-06-10 05:56] LABS: Basophils Percent Auto 0.1 % (0-2); Hematocrit 28.4 % (37.0-47.0); Imm Gran Abs Auto 0.14 X10*3/uL (0.00-0.03); Imm Gran Pct Auto 0.8 % (0.0-0.4); Lymphocytes Absolute Auto 2.2 X10*3/uL (1.2-4.9); Lymphocytes Percent Auto 12.3 % (20-40); Mean Corpuscular HGB Conc 31.7 g/dl (31.0-35.0); Mean Corpuscular Hemoglobin 27.7 pg (27.0-33.0); Mean Corpuscular Volume 87.4 fL (80.0-98.0); Mean Platelet Volume 9.5 fL (9.4-12.3); Monocytes Absolute Auto 0.4 X10*3/uL (0.1-1.2); Monocytes Percent Auto 2.4 % (2-11); Neutrophils Absolute Auto 14.9 x10*3/uL (2.0-8.3); Neutrophils Percent Auto 84.4 % (45-73); Platelet Count 340 X10*3/uL (160-400); Red Blood Count 3.25 X10*6/uL (4.20-5.50); Red Cell Distribution Width 12.8 % (11.0-16.0); White Blood Count 17.6 X10*3/uL (4.8-10.8)
[2022-06-10 06:21] LABS: Alanine Aminotransferase 68 U/L (0-31); Albumin Level 3.1 g/dL (3.5-5.0); Alkaline Phosphatase 49 U/L (39-117); Anion Gap 14 (12-20); Aspartate Amino Transferase 34 U/L (5-31); Bilirubin Total 0.5 mg/dL (0.0-1.0); Blood Urea Nitrogen 20 mg/dL (9-16); Calcium 8.7 mg/dL (8.4-10.2); Carbon Dioxide 23 mmol/L (22-29); Chloride 108 mmol/L (96-108); Creatinine Clr Calc Pharmacy 64.8; Estimated Glomerular Filt Rate > 60; Glucose Fasting 152 mg/dL (60-99); Potassium 4.5 mmol/L (3.3-5.1); Sodium 140 mmol/L (135-145); Total Protein 5.6 g/dL (6.5-8.0)
[2022-06-10 08:00] VITALS: BP 137/72; PULSE 86; RESP 20; TEMP 36.2; O2SAT 96
--- NOTE | 2022-06-10 09:30 | PC.NURSE ---
pt had afib rvr, HR up to 160. pt is emotionally tearing at the time. on assessment, pt is asymptomatic except that pt feels heart palpitation but denied sob/chest pain. MD Dr Pringle notified. IV Metoprol once given. pt returned to a controlled HR
[2022-06-10] MEDS: 0.9 % Sodium Chloride Flush 3 ML SYRINGE IVFLUSH ×2 (09:34→17:47)
[2022-06-10] MEDS: Apixaban 5 MG TABLET PO ×2 (09:34→20:40)
[2022-06-10] MEDS: Ferrous Sulfate 324 MG TABLET.DR PO ×2 (09:34→17:47)
[2022-06-10] MEDS: dilTIAZem HCL CD 240 MG CAP.ER.DEG PO (09:34)
[2022-06-10] MEDS: Cyanocobalamin (Vitamin B-12) 1,000 MCG TABLET 1000 MCG PO (09:34)
[2022-06-10] MEDS: Cholecalciferol (Vitamin D3) 25 MCG TABLET PO (09:34)
--- NOTE | 2022-06-10 10:26 | HO.PM.IMPN ---
Subjective Subjective Date of Service: 06/10/22 Interval History: Complaining of palpitations, no shortness of breath, no lightheadedness or dizziness, no chest pain, complaining of intermittent cough, no fevers no chills Review of Systems Review of Systems: Yes all other systems are reviewed and are negative Physical Exam Vital Signs: Vital Signs: Last Vital Signs Temp 97.2 F 06/10/22 08:00 Pulse 86 06/10/22 08:00 Resp 20 06/10/22 08:00 BP 137/72 06/10/22 08:00 Pulse Ox 96 06/10/22 08:00 O2 Del Method 06/10/22 08:00 O2 Flow Rate 2 06/10/22 08:00 BMI result Body Mass Index 26.2 Const: Other: General awake alert x3 in no acute distress. Neck no JVD. CVS irregular rate rhythm, systolic murmur Respiratory lungs clear to auscultation, no respiratory distress, no wheeze, no rhonchi. Gastrointestinal abdomen soft, nontender, bowel sounds audible,no guarding , no rigidity. Extremities no edema. Neuro nonfocal Skin no rash Psych appropriate affect Objective Data Active Medications Acetaminophen (Acetaminophen 325 Mg Tablet) 650 mg PO Q6H PRN PRN Reason: Pain, Mild (Pain Scale 1-3) Apixaban (Apixaban 5 Mg Tablet) 5 mg PO BID [facility] Last Admin: 06/10/22 09:34 Dose: 5 mg Documented By: ALEXA Atorvastatin Calcium (Atorvastatin Calcium 10 Mg Tablet) 10 mg PO BEDTIME [facility] Last Admin: 06/09/22 20:31 Dose: 10 mg Documented By: BHARATH Cyanocobalamin (Cyanocobalamin (Vitamin B-12) 1,000 Mcg Tablet) 1,000 mcg PO DAILY [facility] Last Admin: 06/10/22 09:34 Dose: 1,000 mcg Documented By: ALEXA Diltiazem HCl (Diltiazem Hcl Cd 240 Mg Cap.Er.Deg) 240 mg PO DAILY [facility]; Protocol Last Admin: 06/10/22 09:34 Dose: 240 mg Documented By: ALEXA Docusate Sodium (Docusate Sodium 100 Mg Capsule) 100 mg PO DAILY PRN PRN Reason: Constipation Ferrous Sulfate (Ferrous Sulfate 324 Mg Tablet.) 324 mg PO BIDWM [facility] Last Admin: 06/10/22 09:34 Dose: 324 mg Documented By: ALEXA Guaifenesin (Guaifenesin 200 Mg/10 Ml 10 Ml Liquid) 10 ml PO Q6H PRN PRN Reason: Cough Cefepime HCl 2 gm/ Sodium (Chloride) 50 mls @ 100 mls/hr IV Q8H [facility] Last Infusion: 06/10/22 06:25 Dose: 0 mls/hr Documented By: BHARATH Vancomycin HCl 1,500 mg/ (Sodium Chloride) 500 mls @ 333.333 mls/hr IV Q24H [facility] Last Infusion: 06/09/22 14:00 Dose: 0 mls/hr Documented By: ALEXA Methylprednisolone Sodium Succinate (Methylprednisolone Sod Succ 125 Mg/2 Ml Vial) 60 mg IVPUSH Q8H [facility] Last Admin: 06/10/22 09:34 Dose: Not Given Documented By: ALEXA Non-Admin Reason: Physician Held Med Metoprolol Tartrate (Metoprolol Tartrate 5 Mg/5 Ml Vial) 2.5 mg IVPUSH ONCE ONE Stop: 06/10/22 10:24 Metoprolol Tartrate (Metoprolol Tartrate 12.5 Mg Halftab) 12.5 mg PO Q6H [facility]; Protocol Omeprazole (Omeprazole 40 Mg Capsule.Dr) 40 mg PO DAILY@0630 [facility] Last Admin: 06/10/22 05:49 Dose: 40 mg Documented By: BHARATH Ondansetron HCl (Ondansetron Hcl 4 Mg/2 Ml Vial) 4 mg IVPUSH Q8H PRN PRN Reason: Nausea and Vomiting Pharmacy Consult (Consult Rx Perform Med Rec) 1 each MISCELLANE ONCE PRN PRN Reason: Consult order Pharmacy Consult (Consult Rx Vancomycin Dosing) 1 each MISCELLANE DAILY PRN PRN Reason: Consult order Sodium Chloride (0.9 % Sodium Chloride Flush 3 Ml Syringe) 3 ml IVFLUSH QSHIFT [facility] Last Admin: 06/10/22 09:34 Dose: 3 ml Documented By: ALEXA Vitamin D (Cholecalciferol (Vitamin D3) 25 Mcg Tablet) 25 mcg PO DAILY [facility] Last Admin: 06/10/22 09:34 Dose: 25 mcg Documented By: ALEXA Labs 06/10/22 05:34 06/10/22 05:34 Labs: Laboratory Results - last 24 hr 06/10/22 06/10/22 05:34 05:34 MCV 87.4 MCH 27.7 MCHC 31.7 RDW 12.8 Plt Count 340 MPV 9.5 Immature Gran % (Auto) 0.8 H Neut % (Auto) 84.4 H Lymph % (Auto) 12.3 L [place] % (Auto) 2.4 Eos % (Auto) 0.0 Baso % (Auto) 0.1 Lymph # (Auto) 2.2 [place] # (Auto) 0.4 Eos # (Auto) 0.0 Baso # (Auto) 0.0 Abs Immat Gran (auto) 0.14 H Absolute Neuts (auto) 14.9 H Absolute Nucleated RBC 0.000 Nucleated RBC % (auto) 0.0 Anion Gap 14 Estim Creat Clear Calc 64.8 Estimated GFR > 60 Fasting Glucose 152 H Calcium 8.7 D Total Bilirubin 0.5 AST 34 H ALT 68 H Alkaline Phosphatase 49 Total Protein 5.6 L Albumin 3.1 L Assessment and Plan (1) Atrial fibrillation with RVR: Status: Acute (2) Right lower lobe pneumonia: Status: Acute Plan 77-year-old female with history Sevilla's esophagus, hypertension, history of bleeding gastric ulcer and AVMs requiring multiple blood transfusions in 02/11 and 11/12, osteopenia, hypercholesterolemia, vitamin B12 deficiency, and vitamin-D deficiency admitted for AFib with RVR; rate control when sedentary however variable with movement 1.New onset atrial fibrillation with rapid ventricular response -recurrent AFib ventricular rate in 140s patient complaining of palpitation on Oral Cardizem, case discussed with Cardiology will add by mouth Lopressor after giving 1 dose of IV Lopressor BRIGIDO cardioversion at a.m. continue Eliquis, NPO after midnight. 2. Right lower lobe pneumonia -on vanco/cefepime day 6 will DC IV antibiotics -titrate O2 to maintain sats greater than equal 90%, patient not on home oxygen, DC IV steroids -continue cough medications and p.r.n. DuoNebs 3.History UGIB -continue PPI seen by GI ,no contraindication to anticoagulation Eliquis DNR/DNI Patient requires ongoing hospitalization for persistent AFib with RVR , will need BRIGIDO E cardioversion Time Spent With Patient Time: Total time managing care of this patient today ____ minutes. Quality Stroke Does the patient have a stroke diagnosis?: No VTE Prior VTE?: No VTE Risk Level:: Medical - moderate - high VTE Device Contraindication: Treatment Not Indicated VTE Drug Contraindication: N/A - Med Ordered
--- NOTE | 2022-06-10 10:27 | P.PNCA_ITS ---
Subjective Subjective Date of Service: 06/10/22 Principal diagnosis: Atrial fibrillation rapid ventricular response and hypertrophic cardiomyopa Interval history: Patient complains of pounding this morning. It. She says she is very anxious as overnight she had an encounter with the nurse and was upset about it. Her heart rate remained uncontrolled ever since. She is on p.o. Cardizem. She denies any shortness of breath. Continues to have cough. Denies any orthopnea, PND, leg edema. Denies lightheadedness. Blood pressure is stable. Review of Systems Constitutional: Reports difficulty sleeping Cardiovascular: Denies chest pain, Denies leg edema, Denies lightheadedness, Denies Loss of Consciousness, Reports palpitations and Denies dyspnea Respiratory: Reports cough and Denies dyspnea Gastrointestinal: Reports no additional gastrointestinal complaints Musculoskeletal: Reports no additional musculoskeletal complaints Skin/Breast: Reports system reviewed and no additional complaints, except as docu Reports system reviewed and no additional complaints, except as documented Psychiatric: Reports no additional psychiatric complaints Endocrine: Reports palpitations Physical Exam Vital Signs: Last Vital Signs Temp 97.2 F 06/10/22 08:00 Pulse 86 06/10/22 08:00 Resp 20 06/10/22 08:00 BP 137/72 06/10/22 08:00 Pulse Ox 96 06/10/22 08:00 O2 Del Method 06/10/22 08:00 O2 Flow Rate 2 06/10/22 08:00 BMI result Body Mass Index 26.2 Const General: cooperative, comfortable, no acute distress, alert, awake and anxious Nutritional Appearance: average body habitus Orientation/consciousness: patient oriented x3 Neck Neck: Yes trachea midline, Yes supple and Yes no JVD Resp Effort & Inspection: decreased respiratory effort Auscultation: no rales, no wheezes and diminished lung sounds Cardio Jugular venous distension: no JVD Rate: tachycardic Rhythm: abnormal rhythm irregularly irregular Heart sounds: S1 normal heart sound present, S2 normal heart sound present, no click, no gallops and Murmur heart sound present systolic mid, decrescendo, crescendo, harsh and at the left sternal border GI Auscultation: normal bowel sounds Skin General skin exam: no rashes or lesions noted Neuro General: patient oriented x3 and no focal motor deficits Extrem General: Yes no clubbing, cyanosis or edema Objective Labs and Meds 06/10/22 05:34 06/10/22 05:34 Lab results: Laboratory Results - last 24 hr 06/10/22 06/10/22 05:34 05:34 WBC 17.6 H RBC 3.25 L Hgb 9.0 L Hct 28.4 L MCV 87.4 MCH 27.7 MCHC 31.7 RDW 12.8 Plt Count 340 MPV 9.5 Immature Gran % (Auto) 0.8 H Neut % (Auto) 84.4 H Lymph % (Auto) 12.3 L [place] % (Auto) 2.4 Eos % (Auto) 0.0 Baso % (Auto) 0.1 Lymph # (Auto) 2.2 [place] # (Auto) 0.4 Eos # (Auto) 0.0 Baso # (Auto) 0.0 Abs Immat Gran (auto) 0.14 H Absolute Neuts (auto) 14.9 H Absolute Nucleated RBC 0.000 Nucleated RBC % (auto) 0.0 Sodium 140 Potassium 4.5 Chloride 108 Carbon Dioxide 23 Anion Gap 14 BUN 20 H Creatinine 0.76 Estim Creat Clear Calc 64.8 Estimated GFR > 60 Fasting Glucose 152 H Calcium 8.7 D Total Bilirubin 0.5 AST 34 H ALT 68 H Alkaline Phosphatase 49 Total Protein 5.6 L Albumin 3.1 L Progress Note: A&P Assessment and plan (1) Atrial fibrillation with RVR: Status: Acute Assessment and Plan: Atrial fibrillation rapid ventricular response, difficult control. Atrial fibrillation this time triggered by her pneumonia in the setting of underlying hypertrophic cardiomyopathy. Do not have old records including cardiac MRI and echo. Will obtain those records. Not sure as to the left atrial enlargement. However atrial fibrillation not uncommon in patient with hypertrophic cardiomyopathy. Her today is high heart rate is probably related to overnight episode and she is very anxious about it. Continue Cardizem therapy. Give 1 dose of IV metoprolol 2.5 mg an add metoprolol 12.5 mg q.6 to her regimen. Will require rhythm control for best outcome inpatient hypertrophic cardiomyopathy to avoid decompensation. However will require BRIGIDO guided cardioversion if rate becomes difficult to maintain and control. Continue Eliquis therapy. Most likely require antiarrhythmic drug therapy. Tentative plan for BRIGIDO guided cardioversion tomorrow. Please keep NPO past midnight (2) Hypertrophic cardiomyopathy: Status: Acute Assessment and Plan: Hypertrophic cardiomyopathy. Will obtain old records. Patient has no obvious signs of congestive heart failure at this point time. Continue rate control as above. Not sure as to what the discussion the past was regarding management of hypertrophic cardiomyopathy. 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 Will continue to follow with you Time Spent With Patient Time: Total time managing care of this patient today ____ minutes. Progress Note: Quality Stroke Does the patient have a stroke diagnosis?: No Procedures Date of Service Date of Service: 06/10/22
--- NOTE | 2022-06-10 10:31 | MHC.CM.PN ---
Per ROUNDS discussion, Patient will have a Cardioversion tomorrow; home is the goal and cM will continue to follow.
[2022-06-10 10:41] LABS: Vancomycin Trough 9.6 mcg/mL (10.0-20.0)
[2022-06-10] MEDS: Metoprolol Tartrate 12.5 MG HALFTAB PO ×2 (11:24→17:47)
[2022-06-10] MEDS: Metoprolol Tartrate 5 MG/5 ML VIAL 2.5 MG IVPUSH (11:24)
[2022-06-10 12:00] VITALS: BP 130/71; PULSE 81; RESP 20; TEMP 36.6; O2SAT 98
[2022-06-10 15:34] VITALS: BP 125/68; PULSE 77; RESP 18; TEMP 36.6; O2SAT 98
[2022-06-10 19:22] VITALS: BP 160/74; PULSE 76; RESP 18; TEMP 37; O2SAT 99
[2022-06-10] MEDS: Atorvastatin Calcium 10 MG TABLET PO (20:40)
[2022-06-11] VITALS (15 sets, daily range): BP systolic 115–151; BP diastolic 58–83; PULSE 55–81; RESP 15–20; TEMP 36.2–37.1; O2SAT 95–99
[2022-06-11] MEDS: Metoprolol Tartrate 12.5 MG HALFTAB PO ×2 (00:30→05:20)
[2022-06-11] MEDS: 0.9 % Sodium Chloride Flush 3 ML SYRINGE IVFLUSH ×3 (00:31→16:50)
[2022-06-11 06:07] LABS: Creatinine Clr Calc Pharmacy 73.4; Estimated Glomerular Filt Rate > 60
[2022-06-11] MEDS: Cyanocobalamin (Vitamin B-12) 1,000 MCG TABLET 1000 MCG PO (08:29)
[2022-06-11] MEDS: dilTIAZem HCL CD 240 MG CAP.ER.DEG PO (08:29)
[2022-06-11] MEDS: Cholecalciferol (Vitamin D3) 25 MCG TABLET PO (08:29)
[2022-06-11] MEDS: Apixaban 5 MG TABLET PO ×2 (08:29→20:36)
[2022-06-11] MEDS: Lactated Ringers 1,000 ML 50 ML IVCONT (09:19)
--- NOTE | 2022-06-11 09:31 | HO.ANESPROP2 ---
HPI - Anesthesia Eval Consult details Narrative: 77 F for BRIGIDO a fib with RVR ,Hypertrophic cardiomyopathy , Pneumonia was on IV antibiotics , Aortic stenosis , pulmonary Hypertension . On oxygen currently . Case was discussed with Dr Aparicio . [facility] Active Problems Active Problems: All Active Problems (Updated 06/06/22 @ 17:43 by Mike Marshall MD) Hypertrophic cardiomyopathy (Acute) Right lower lobe pneumonia (Acute) Atrial fibrillation with RVR (Acute) Leukocytosis (Acute) Hearing impairment (Acute) Rectal bleeding (Acute) Hospital discharge follow-up (Acute) Edema of right lower extremity (Acute) Acute blood loss anemia (Acute) Acute GI bleeding (Acute) Vitamin B12 deficiency (Acute) Sevilla's esophagus (Acute) Anemia (Acute) Gastric ulcer (Acute) Abnormal finding on EKG (Acute) Vertigo (Acute) Dizziness (Acute) Iron deficiency anemia (Acute) Acute blood loss anemia (Acute) Difficulty sleeping (Acute) Overweight (BMI 25.0-29.9) (Acute) Primary osteoarthritis of hand (Acute) Vitamin D deficiency (Acute) Osteopenia (Acute) Cardiac murmur (Acute) Hiatal hernia (Acute) Benign essential hypertension (Acute) Pure hypercholesterolemia (Acute) Past Medical History Medical History Anemia Sevilla's esophagus Benign essential hypertension Cardiac murmur Gastric ulcer Hiatal hernia History of blood transfusion Osteopenia Overweight (BMI 25.0-29.9) Primary osteoarthritis of hand Pure hypercholesterolemia Vitamin B12 deficiency Vitamin D deficiency Family History Family History Father Hypertension Mother Stroke Family history of problems with anesthesia: No Surgical History Surgical History History of appendectomy History of esophagogastroduodenoscopy (EGD) History of hysterectomy History of Problems with Anesthesia: No Social History Social History Household Members: Spouse Housing: House Do you presently have visiting nurse or other home services: No Alcohol intake: never Patient Tobacco Use Status: Never used Tobacco Smoked in Last 30 Days: No e-Cigarette/Vaping Use: Never Used Second Hand Smoke Exposure: No Use of substances other than those prescribed or required for medical reasons: No Currently Displaying Signs/Symptoms of Drug Intoxication Withdrawal: No Have you been hit, kicked, punched, or otherwise hurt by someone within the past year? If so, by whom?: No Do you feel safe in your current relationship?: Yes Is there a partner from a previous relationship who is making you feel unsafe now?: No Are you made to feel afraid or neglected: No Are you DNR?: Yes Advance Directives: Yes Advance Directives on File: Yes Advance Directives Date on File: 01/22/21 Do you have thoughts of harming others: None Do you have a plan to hurt others: No Plan Recently lost weight without trying: No Eating poorly because of decreased appetite: Yes Nutrition Risks: No Nutritional Risk Patient : No : No Poor oral hygiene: No service: No Current occupational status: retired Cognitive needs: No Hearing needs: No Vision needs: Yes (glasses) Meds Allergies Allergy/AdvReac Type Severity Reaction Status Date / Time enflurane [ENFLURANE] Allergy Severe Per Verified 04/26/22 16:14 Patient Liver toxicity piperacillin [Zosyn] Allergy Severe Rash Verified 06/11/22 09:12 tazobactam [Zosyn] Allergy Severe Rash Verified 06/11/22 09:11 Active Medications: Current Medications Acetaminophen (Acetaminophen 325 Mg Tablet) 650 mg PO Q6H PRN PRN Reason: Pain, Mild (Pain Scale 1-3) Apixaban (Apixaban 5 Mg Tablet) 5 mg PO BID [facility] Last Admin: 06/11/22 08:29 Dose: 5 mg Atorvastatin Calcium (Atorvastatin Calcium 10 Mg Tablet) 10 mg PO BEDTIME [facility] Last Admin: 06/10/22 20:40 Dose: 10 mg Cyanocobalamin (Cyanocobalamin (Vitamin B-12) 1,000 Mcg Tablet) 1,000 mcg PO DAILY [facility] Last Admin: 06/11/22 08:29 Dose: 1,000 mcg Diltiazem HCl (Diltiazem Hcl Cd 240 Mg Cap.Er.Deg) 240 mg PO DAILY [facility]; Protocol Last Admin: 06/11/22 08:29 Dose: 240 mg Docusate Sodium (Docusate Sodium 100 Mg Capsule) 100 mg PO DAILY PRN PRN Reason: Constipation Ferrous Sulfate (Ferrous Sulfate 324 Mg Tablet.Dr) 324 mg PO BIDWM [facility] Last Admin: 06/11/22 08:28 Dose: Not Given Guaifenesin (Guaifenesin 200 Mg/10 Ml 10 Ml Liquid) 10 ml PO Q6H PRN PRN Reason: Cough Metoprolol Tartrate (Metoprolol Tartrate 12.5 Mg Halftab) 12.5 mg PO Q6H [facility]; Protocol Last Admin: 06/11/22 05:20 Dose: 12.5 mg Omeprazole (Omeprazole 40 Mg Capsule.Dr) 40 mg PO DAILY@0630 [facility] Last Admin: 06/11/22 05:21 Dose: Not Given Ondansetron HCl (Ondansetron Hcl 4 Mg/2 Ml Vial) 4 mg IVPUSH Q8H PRN PRN Reason: Nausea and Vomiting Pharmacy Consult (Consult Rx Perform Med Rec) 1 each MISCELLANE ONCE PRN PRN Reason: Consult order Sodium Chloride (0.9 % Sodium Chloride Flush 3 Ml Syringe) 3 ml IVFLUSH QSHIFT [facility] Last Admin: 06/11/22 08:30 Dose: 3 ml Vitamin D (Cholecalciferol (Vitamin D3) 25 Mcg Tablet) 25 mcg PO DAILY [facility] Last Admin: 06/11/22 08:29 Dose: 25 mcg Home Medications Medication Instructions Recorded Confirmed Last Taken Type ferrous sulfate 324 mg (65 mg 324 mg PO DAILY 08/10/21 06/05/22 06/05/22 History iron) tablet,delayed release omeprazole 40 mg capsule,delayed 40 mg PO DAILY@0630 08/10/21 06/05/22 06/05/22 History release atorvastatin 10 mg tablet 10 mg PO BEDTIME 06/05/22 06/05/22 06/04/22 History Exam Exam Date and Time: June 11, 202231 Height,Weight and Vital Signs: Height 5 ft 7 in Weight 75.75 kg Last Vital Signs Temp 97.7 F 06/11/22 09:22 Pulse 73 06/11/22 09:22 Resp 16 06/11/22 09:22 BP 151/83 H 06/11/22 09:22 Pulse Ox 99 06/11/22 09:22 O2 Del Method 06/11/22 09:22 O2 Flow Rate 2 06/11/22 09:22 Pertinent Lab Results Pertinent Lab Results: Laboratory Tests 06/05/22 06/05/22 06/05/22 07:41 07:41 07:41 WBC 26.1 H RBC 3.56 L Hgb 10.0 L Hct 31.5 L MCV 88.5 MCH 28.1 MCHC 31.7 RDW 12.9 Plt Count 297 D MPV 9.7 Immature Gran % (Auto) 0.9 H Neut % (Auto) 81.9 H Lymph % (Auto) 9.9 L [place] % (Auto) 7.0 Eos % (Auto) 0.1 Baso % (Auto) 0.2 Lymph # (Auto) 2.6 [place] # (Auto) 1.8 H Eos # (Auto) 0.0 Baso # (Auto) 0.0 Abs Immat Gran (auto) 0.23 H Absolute Neuts (auto) 21.4 H Absolute Nucleated RBC 0.000 Nucleated RBC % (auto) 0.0 Smear Tech's Comments VERIFIED PT 16.3 H INR 1.4 H Sodium 138 Potassium 3.6 Chloride 104 Carbon Dioxide 23 Anion Gap 15 BUN 13 Creatinine 0.81 Estim Creat Clear Calc 60.8 Estimated GFR > 60 Random Glucose 160 H Fasting Glucose Lactic Acid Calcium 8.3 L Magnesium 1.4 L* Total Bilirubin 1.2 H AST 16 ALT 16 Alkaline Phosphatase 46 Troponin I High Sens B-Natriuretic Peptide Total Protein 5.9 L Albumin 3.5 TSH 2.12 Urine Color Urine Appearance Urine pH Ur Specific [place] Urine Protein Urine Glucose (UA) Urine Ketones Urine Blood Urine Nitrite Ur Leukocyte Esterase Urine RBC Urine WBC Ur Squamous Epith Cells Urine Bacteria Hyaline Casts Nasal Screen MRSA (PCR) Nasal S. aureus Screen Nasal MRSA/S.aureus Interp Vancomycin Trough COVID-19 ([facility]) COVID-19 Clin Com 06/05/22 06/05/22 06/05/22 07:41 07:41 08:26 WBC RBC Hgb Hct MCV MCH MCHC RDW Plt Count MPV Immature Gran % (Auto) Neut % (Auto) Lymph % (Auto) [place] % (Auto) Eos % (Auto) Baso % (Auto) Lymph # (Auto) [place] # (Auto) Eos # (Auto) Baso # (Auto) Abs Immat Gran (auto) Absolute Neuts (auto) Absolute Nucleated RBC Nucleated RBC % (auto) Smear Tech's Comments PT INR Sodium Potassium Chloride Carbon Dioxide Anion Gap BUN Creatinine Estim Creat Clear Calc Estimated GFR Random Glucose Fasting Glucose Lactic Acid Calcium Magnesium Total Bilirubin AST ALT Alkaline Phosphatase Troponin I High Sens 27.6 H B-Natriuretic Peptide 414 H Total Protein Albumin TSH Urine Color Urine Appearance Urine pH Ur Specific [place] Urine Protein Urine Glucose (UA) Urine Ketones Urine Blood Urine Nitrite Ur Leukocyte Esterase Urine RBC Urine WBC Ur Squamous Epith Cells Urine Bacteria Hyaline Casts Nasal Screen MRSA (PCR) Nasal S. aureus Screen Nasal MRSA/S.aureus Interp Vancomycin Trough COVID-19 ([facility]ARA) Negative COVID-19 Clin Com See Note 06/05/22 06/05/22 06/05/22 09:06 12:30 14:22 WBC RBC Hgb Hct MCV MCH MCHC RDW Plt Count MPV Immature Gran % (Auto) Neut % (Auto) Lymph % (Auto) [place] % (Auto) Eos % (Auto) Baso % (Auto) Lymph # (Auto) [place] # (Auto) Eos # (Auto) Baso # (Auto) Abs Immat Gran (auto) Absolute Neuts (auto) Absolute Nucleated RBC Nucleated RBC % (auto) Smear Tech's Comments PT INR Sodium Potassium Chloride Carbon Dioxide Anion Gap BUN Creatinine Estim Creat Clear Calc Estimated GFR Random Glucose Fasting Glucose Lactic Acid 1.0 Calcium Magnesium Total Bilirubin AST ALT Alkaline Phosphatase Troponin I High Sens 25.5 H B-Natriuretic Peptide Total Protein Albumin TSH Urine Color Yellow Urine Appearance Cloudy Urine pH 5.5 Ur Specific [place] 1.020 Urine Protein 30 (1+) H Urine Glucose (UA) Negative Urine Ketones Trace Urine Blood Negative Urine Nitrite Negative Ur Leukocyte Esterase Moderate (2+) H Urine RBC 3-5 H Urine WBC 6-10 Ur Squamous Epith Cells 6-10 Urine Bacteria Trace Hyaline Casts 3-5 Nasal Screen MRSA (PCR) Nasal S. aureus Screen Nasal MRSA/S.aureus Interp Vancomycin Trough COVID-19 ([facility]ARA) COVID-19 Clin Com 06/06/22 06/06/22 06/07/22 06:39 06:39 06:54 WBC 20.4 H RBC 3.11 L Hgb 8.9 L Hct 27.5 L MCV 88.4 MCH 28.6 MCHC 32.4 RDW 13.1 Plt Count 270 MPV 9.9 Immature Gran % (Auto) 0.8 H Neut % (Auto) 79.3 H Lymph % (Auto) 10.9 L [place] % (Auto) 8.3 Eos % (Auto) 0.5 Baso % (Auto) 0.2 Lymph # (Auto) 2.2 [place] # (Auto) 1.7 H Eos # (Auto) 0.1 Baso # (Auto) 0.1 Abs Immat Gran (auto) 0.16 H Absolute Neuts (auto) 16.1 H Absolute Nucleated RBC 0.000 Nucleated RBC % (auto) 0.0 Smear Tech's Comments VERIFIED PT INR Sodium 137 Potassium 3.5 Chloride 107 Carbon Dioxide 22 Anion Gap 12 BUN 11 Creatinine 0.76 Estim Creat Clear Calc 64.8 Estimated GFR > 60 Random Glucose 118 H Fasting Glucose Lactic Acid Calcium 7.7 L D Magnesium 1.9 Total Bilirubin AST ALT Alkaline Phosphatase Troponin I High Sens B-Natriuretic Peptide 262 H Total Protein Albumin TSH Urine Color Urine Appearance Urine pH Ur Specific [place] Urine Protein Urine Glucose (UA) Urine Ketones Urine Blood Urine Nitrite Ur Leukocyte Esterase Urine RBC Urine WBC Ur Squamous Epith Cells Urine Bacteria Hyaline Casts Nasal Screen MRSA (PCR) Nasal S. aureus Screen Nasal MRSA/S.aureus Interp Vancomycin Trough COVID-19 ([facility]ARA) COVID-19 Clin Com 06/07/22 06/07/22 06/08/22 06:54 06:54 06:08 WBC 15.7 H RBC 3.03 L Hgb 8.7 L Hct 26.7 L MCV 88.1 MCH 28.7 MCHC 32.6 RDW 12.9 Plt Count 271 MPV 9.9 Immature Gran % (Auto) 0.6 H Neut % (Auto) 88.0 H Lymph % (Auto) 9.6 L [place] % (Auto) 1.7 L Eos % (Auto) 0.0 Baso % (Auto) 0.1 Lymph # (Auto) 1.5 [place] # (Auto) 0.3 Eos # (Auto) 0.0 Baso # (Auto) 0.0 Abs Immat Gran (auto) 0.10 H Absolute Neuts (auto) 13.8 H Absolute Nucleated RBC 0.000 Nucleated RBC % (auto) 0.0 Smear Tech's Comments PT INR Sodium 139 143 Potassium 3.8 4.3 Chloride 110 H 113 H Carbon Dioxide 20 L 22 Anion Gap 13 12 BUN 12 18 H Creatinine 0.71 0.75 Estim Creat Clear Calc 69.3 65.6 Estimated GFR > 60 > 60 Random Glucose Fasting Glucose 156 H 121 H Lactic Acid Calcium 8.1 L 8.4 Magnesium Total Bilirubin 0.6 0.4 AST 21 43 H ALT 22 53 H Alkaline Phosphatase 43 43 Troponin I High Sens B-Natriuretic Peptide Total Protein 5.2 L 5.3 L Albumin 2.8 L 2.9 L TSH Urine Color Urine Appearance Urine pH Ur Specific [place] Urine Protein Urine Glucose (UA) Urine Ketones Urine Blood Urine Nitrite Ur Leukocyte Esterase Urine RBC Urine WBC Ur Squamous Epith Cells Urine Bacteria Hyaline Casts Nasal Screen MRSA (PCR) Nasal S. aureus Screen Nasal MRSA/S.aureus Interp Vancomycin Trough COVID-19 ([facility]) COVID-19 Clin Com 06/08/22 06/08/22 06/08/22 06:08 09:55 15:40 WBC 24.3 H RBC 3.24 L Hgb 9.1 L Hct 28.7 L MCV 88.6 MCH 28.1 MCHC 31.7 RDW 12.9 Plt Count 335 MPV 9.8 Immature Gran % (Auto) 1.2 H Neut % (Auto) 86.0 H Lymph % (Auto) 7.9 L [place] % (Auto) 4.8 Eos % (Auto) 0.0 Baso % (Auto) 0.1 Lymph # (Auto) 1.9 [place] # (Auto) 1.2 Eos # (Auto) 0.0 Baso # (Auto) 0.0 Abs Immat Gran (auto) 0.30 H Absolute Neuts (auto) 20.9 H Absolute Nucleated RBC 0.000 Nucleated RBC % (auto) 0.0 Smear Tech's Comments VERIFIED PT INR Sodium Potassium Chloride Carbon Dioxide Anion Gap BUN Creatinine Estim Creat Clear Calc Estimated GFR Random Glucose Fasting Glucose Lactic Acid Calcium Magnesium Total Bilirubin AST ALT Alkaline Phosphatase Troponin I High Sens B-Natriuretic Peptide Total Protein Albumin TSH Urine Color Urine Appearance Urine pH Ur Specific [place] Urine Protein Urine Glucose (UA) Urine Ketones Urine Blood Urine Nitrite Ur Leukocyte Esterase Urine RBC Urine WBC Ur Squamous Epith Cells Urine Bacteria Hyaline Casts Nasal Screen MRSA (PCR) NEGATIVE Nasal S. aureus Screen NEGATIVE Nasal MRSA/S.aureus Interp SEE NOTE Vancomycin Trough 7.6 L COVID-19 ([facility]) COVID-19 Clin Com 06/09/22 06/09/22 06/10/22 06:03 06:03 05:34 WBC 16.4 H 17.6 H RBC 3.00 L 3.25 L Hgb 8.3 L 9.0 L Hct 26.8 L 28.4 L MCV 89.3 87.4 MCH 27.7 27.7 MCHC 31.0 31.7 RDW 12.8 12.8 Plt Count 313 340 MPV 9.7 9.5 Immature Gran % (Auto) 0.9 H 0.8 H Neut % (Auto) 87.4 H 84.4 H Lymph % (Auto) 10.3 L 12.3 L [place] % (Auto) 1.3 L 2.4 Eos % (Auto) 0.0 0.0 Baso % (Auto) 0.1 0.1 Lymph # (Auto) 1.7 2.2 [place] # (Auto) 0.2 0.4 Eos # (Auto) 0.0 0.0 Baso # (Auto) 0.0 0.0 Abs Immat Gran (auto) 0.14 H 0.14 H Absolute Neuts (auto) 14.3 H 14.9 H Absolute Nucleated RBC 0.000 0.000 Nucleated RBC % (auto) 0.0 0.0 Smear Tech's Comments PT INR Sodium 143 Potassium 4.1 Chloride 110 H Carbon Dioxide 21 L Anion Gap 16 BUN 20 H Creatinine 0.74 Estim Creat Clear Calc 66.5 Estimated GFR > 60 Random Glucose Fasting Glucose 133 H Lactic Acid Calcium 8.1 L Magnesium Total Bilirubin 0.4 AST 33 H ALT 59 H Alkaline Phosphatase 43 Troponin I High Sens B-Natriuretic Peptide Total Protein 5.1 L Albumin 2.8 L TSH Urine Color Urine Appearance Urine pH Ur Specific [place] Urine Protein Urine Glucose (UA) Urine Ketones Urine Blood Urine Nitrite Ur Leukocyte Esterase Urine RBC Urine WBC Ur Squamous Epith Cells Urine Bacteria Hyaline Casts Nasal Screen MRSA (PCR) Nasal S. aureus Screen Nasal MRSA/S.aureus Interp Vancomycin Trough COVID-19 ([facility]ARA) COVID-19 Clin Com 06/10/22 06/10/22 06/11/22 05:34 10:12 05:19 WBC RBC Hgb Hct MCV MCH MCHC RDW Plt Count MPV Immature Gran % (Auto) Neut % (Auto) Lymph % (Auto) [place] % (Auto) Eos % (Auto) Baso % (Auto) Lymph # (Auto) [place] # (Auto) Eos # (Auto) Baso # (Auto) Abs Immat Gran (auto) Absolute Neuts (auto) Absolute Nucleated RBC Nucleated RBC % (auto) Smear Tech's Comments PT INR Sodium 140 Potassium 4.5 Chloride 108 Carbon Dioxide 23 Anion Gap 14 BUN 20 H Creatinine 0.76 0.67 Estim Creat Clear Calc 64.8 73.4 Estimated GFR > 60 > 60 Random Glucose Fasting Glucose 152 H Lactic Acid Calcium 8.7 D Magnesium Total Bilirubin 0.5 AST 34 H ALT 68 H Alkaline Phosphatase 49 Troponin I High Sens B-Natriuretic Peptide Total Protein 5.6 L Albumin 3.1 L TSH Urine Color Urine Appearance Urine pH Ur Specific [place] Urine Protein Urine Glucose (UA) Urine Ketones Urine Blood Urine Nitrite Ur Leukocyte Esterase Urine RBC Urine WBC Ur Squamous Epith Cells Urine Bacteria Hyaline Casts Nasal Screen MRSA (PCR) Nasal S. aureus Screen Nasal MRSA/S.aureus Interp Vancomycin Trough 9.6 L COVID-19 ([facility]) COVID-19 Clin Com Narrative Narrative: Date of Service: 06/05/22 Test Reason : TACHYCARDIA Blood Pressure : / mmHG Vent. Rate : 164 BPM ? ? Atrial Rate : 000 BPM ?? P-R Int : 000 ms? QRS Dur : 096 ms ? ? QT Int : 298 ms ? ? ? P-R-T Axes : 000 009 191 degrees ?? QTc Int : 492 ms ? Atrial fibrillation with rapid ventricular response Voltage criteria for left ventricular hypertrophy ( R in aVL , Sokolow-Gtz , [place] product ) Marked ST abnormality, possible inferolateral subendocardial injury Abnormal ECG When compared with ECG of 29-OCT-2021 21:57, Atrial fibrillation has replaced Sinus rhythm Vent. rate has increased BY [address] now depressed in Lateral leads Transthoracic Echocardiogram Amended Procedure Date:? 06/05/2022 Procedure Type:? Transthoracic Echocardiogram ECG Rhythm:? ? ? Atrial Fibrillation ?? ? Conclusions: - Hyperdynamic LV function.? - High gradient across LVOT. No systolic anterior motion of? ? ? mitral valve, no LVOT obstruction. ? - Peak gradient LVOT with Valsalva 118 mm Hg.? - Normal right ventricular cavity size and systolic function .? ? Airway Mallampati Class: III TM Dist: >3cm Neck ROM: Full Loose/Missing/Broken Teeth: Yes (Poor dentition ) Heart: Irregular Lungs: diminished breath sounds Assessment and Plan Assessment Anesthesia Assessment: Anesthesia Plan Discussed and Chart Reviewed Final Anesthetic Review Family History of Problems with Anesthesia: No History of Problems with Anesthesia: No NPO: Yes ASA Class: IV (urgent ) Final Preanesthetic Review: Meds/Allgs Chart Reviewed, Consent Obtained/Reviewed and Anes Risks/Benef Reviewed Patient Risk: High Procedure Risk: Intermediate Anesthetic Plan Anesthetic Plan: MAC: Disposition: Inp. Admit - Standard Bed
--- NOTE | 2022-06-11 10:22 | CA_ITS ---
Transesophageal Echocardiogram Patient (Last, First, Middle): Sulema Parks, Gender: Female Date of : 1945 Age: 77 Procedure Date: 06/11/2022 Procedure Type: Transesophageal Echocardiogram [place] [facility] [place] Height: 160.02 cm Weight: kg It Security Consultant: ORLIN Referring MD: Gaurav Aparicio MD Symptoms: Pre cardioversion Conclusion: ??? 1. No intracardiac thrombi, masses or vegetations 2. Normal LV systolic function with at least moderate LVH with asymmetric septal hypertrophy with flow pattern consistent with obstructive physiology 3. No intracardiac shunting 4. Moderate mitral regurgitation appears to be late systolic 5. [id number] atherosclerotic changes noted in the aorta 6. No gross pericardial effusion Findings Procedure Information Consent was obtained prior to the procedure. Pre BRIGIDO oral cavity was checked and revealed no overcrowding. The adult 3D probe was passed with no difficulty. Left Ventricle Normal left ventricular size and systolic function. There is moderately increased left ventricular wall thickness. Diastolic function is indeterminate on the basis of available data. There is severe septal asymmetric hypertrophy. there appears to be significant flow convergence in the LVOT consistent with obstructive physiology. However gradients could not be accurately obtained due to off axis views Right Ventricle Normal right ventricular cavity size and systolic function. Atria The left atrium is severely dilated. There is lipomatous hypertrophy of the interatrial septum. There is no evidence of interatrial shunt. There is no evidence of thrombus or mass in the left atrium. there is mild smoke formation seen with left atrium. Left atrial appendage was identified in multiple views and in no significant filling defects suggestive clots. The left atrial appendage ejection velocity is reduced. The left upper, right upper and right lower pulmonary vein were identified draining into the left atrium. The right atrium is mildly dilated. There is no evidence of thrombus or mass in the right atrium. The IVC in SVC drain normally into the right atrium. Aortic Valve There is mild calcification of the aortic valve. There is mild thickening of the aortic valve. There is no aortic valve stenosis. There is no aortic valve regurgitation. Mitral Valve There is mild anterior and posterior mitral leaflet thickening. There is moderate mitral valve regurgitation. There is no mitral valve stenosis. Pulmonic Valve The pulmonic valve is likely normal. There is mild pulmonic valve regurgitation. Tricuspid Valve Normal tricuspid valve structure. There is mild tricuspid valve regurgitation. Great Vessels The visualized portions of the pulmonary artery and branches are normal. Aorta is normal size with [id number] atherosclerotic changes noted in descending thoracic an arch of the aorta Venous The inferior vena cava is normal in size. Inferior vena cava flow indicates hypovolemia. Pericardium/Pleural There is no evidence of pericardial effusion. Updated by Gaurav Aparicio on 12:10 PM with Status of Final Gaurav Aparicio MD electronically signed on 06/11/2022 12:10:54 PM with status of Final
--- NOTE | 2022-06-11 10:23 | MHC.SHP ---
Pre-Procedural Eval Section A Date of Service: 06/11/22 The patient is an INPATIENT: Yes Changes since office visit: Yes Patient answered all questions; No Cold of Flu in the past 2 weeks, No New Medical Problems and No Changes in Medication The History & Physical has been completed within 30 days and I have reviewed it.: Yes Section B Chief Complaint: Afib RVR, HCM Allergies: Allergies Allergy/AdvReac Type Severity Reaction Status Date / Time enflurane [ENFLURANE] Allergy Severe Per Verified 04/26/22 16:14 Patient Liver toxicity piperacillin [Zosyn] Allergy Severe Rash Verified 06/11/22 09:12 tazobactam [Zosyn] Allergy Severe Rash Verified 06/11/22 09:11 Plan I have reviewed the history and physical and performed a pertinent physical examination on my patient. No changes have occurred unless specified. Time Spent With Patient Time: Total time managing care of this patient today ____ minutes.
--- NOTE | 2022-06-11 11:04 | ECG_ITS ---
Test Reason : preop Blood Pressure : / mmHG Vent. Rate : 070 BPM Atrial Rate : 070 BPM P-R Int : 162 ms QRS Dur : 094 ms QT Int : 444 ms P-R-T Axes : 056 014 153 degrees QTc Int : 479 ms Sinus rhythm with Premature atrial complexes Left ventricular hypertrophy with repolarization abnormality ( R in aVL ) Abnormal ECG When compared with ECG of 05-JUN-2022 12:17, Sinus rhythm has replaced Atrial fibrillation Vent. rate has decreased BY 36 BPM Nonspecific T wave abnormality has replaced inverted T waves in Lateral leads Referred By: Gaurav Aparicio Electronically Signed By:GAURAV APARICIO MD
--- NOTE | 2022-06-11 11:05 | HO.CARDIVERS ---
Cardioversion Procedure Note Cardioversion Date of Procedure: Today Ordering Provider: Myself Performing Provider: Myself Indication for Procedure: Persistent atrial fibrillation in setting of hypertrophic obstructive cardiomyopathy Pre-Op Diagnosis: Same Post-Op Diagnosis: Normal sinus rhythm Performed with Transesophageal Echo: Yes BRIGIDO findings (if BRIGIDO Performed): Dictated separately History: See my consult Consent: Verbal and Written consent was obtained from the patient before starting and confirming oral anticoagulation use. The patient was made aware of the risk of synchronized cardioversion including benefits and alternatives Procedure: After consent obtained, cardioversion pads were attached in anteroposterior configuration and the patient was sedated by the anesthesia team. Once adequate sedation achieved, patient was delivered 200 joules of biphasic synchronized energy in anteroposterior configuration Complications: None Impression: Successful conversion to sinus rhythm with intermittent short runs of PACs Recommendations: 1. 12 lead EKG 2. Start Multaq 400 mg b.i.d. to maintain rhythm in addition to Cardizem 3. Continue oral anticoagulation therapy
--- NOTE | 2022-06-11 11:07 | PM.PNCARD ---
Subjective Subjective Date of Service: 06/11/22 Principal diagnosis: Atrial fibrillation rapid ventricular response and hypertrophic cardiomyopa Interval history: Patient was successfully cardioverted after BRIGIDO today. Hemodynamically stable. No heart failure symptoms. Review of Systems Constitutional: Reports difficulty sleeping Cardiovascular: Denies chest pain, Denies leg edema, Denies lightheadedness, Denies Loss of Consciousness, Reports palpitations and Denies dyspnea Respiratory: Reports cough and Denies dyspnea Gastrointestinal: Reports no additional gastrointestinal complaints Musculoskeletal: Reports no additional musculoskeletal complaints Skin/Breast: Reports system reviewed and no additional complaints, except as docu Reports system reviewed and no additional complaints, except as documented Psychiatric: Reports no additional psychiatric complaints Endocrine: Reports palpitations Physical Exam Vital Signs: Last Vital Signs Temp 97.7 F 06/11/22 09:22 Pulse 73 06/11/22 09:22 Resp 16 06/11/22 09:22 BP 151/83 H 06/11/22 09:22 Pulse Ox 99 06/11/22 09:22 O2 Del Method 06/11/22 09:22 O2 Flow Rate 2 06/11/22 09:22 BMI result Body Mass Index 26.2 Const General: cooperative, comfortable, no acute distress, alert, awake and anxious Nutritional Appearance: average body habitus Orientation/consciousness: patient oriented x3 Neck Neck: Yes trachea midline, Yes supple and Yes no JVD Resp Effort & Inspection: decreased respiratory effort Auscultation: no rales, no wheezes and diminished lung sounds Cardio Jugular venous distension: no JVD Rate: regular rate and tachycardic Rhythm: regular rhythm Heart sounds: S1 normal heart sound present, S2 normal heart sound present, no click, no gallops and Murmur heart sound present systolic mid, decrescendo, crescendo, harsh and at the left sternal border GI Auscultation: normal bowel sounds Skin General skin exam: no rashes or lesions noted Neuro General: patient oriented x3 and no focal motor deficits Extrem General: Yes no clubbing, cyanosis or edema Objective Labs and Meds 06/10/22 05:34 06/11/22 05:19 Lab results: Laboratory Results - last 24 hr 06/11/22 05:19 Creatinine 0.67 Estim Creat Clear Calc 73.4 Estimated GFR > 60 Progress Note: A&P Assessment and plan (1) Atrial fibrillation with RVR: Status: Acute Assessment and Plan: Atrial fibrillation with rapid ventricular response status post BRIGIDO guided cardioversion. Currently maintaining sinus rhythm. Given left atrial enlargement will most likely require antiarrhythmic drug support. Will start on Multaq 400 mg b.i.d.. Discontinue metoprolol therapy. Continue Cardizem therapy we as both negative ionotropic agent as well as negative chronotropic agent. Continue full oral anticoagulation with Eliquis. Monitor for 1 more day from cardiac perspective. 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 Will need to re-evaluate her obstructive physiology at rest after maintaining rhythm for some time. If she does have significant obstructive physiology may consider medical therapy with mavacamten. Will follow with you Time Spent With Patient Time: Total time managing care of this patient today ____ minutes. Progress Note: Quality Stroke Does the patient have a stroke diagnosis?: No Procedures Date of Service Date of Service: 06/11/22
--- NOTE | 2022-06-11 12:44 | P.PNIM_ITS ---
Subjective Subjective Date of Service: 06/11/22 Interval History: Return to floor after successful cardioversion feeling hungry offers no other acute complaints of chest pain, no palpitations, no lightheadedness, no dizziness, no nausea, no vomiting, no fevers, no other acute issues overnight. Review of Systems Review of Systems: Yes all other systems are reviewed and are negative Physical Exam Vital Signs: Vital Signs: Last Vital Signs Temp 98.2 F 06/11/22 12:07 Pulse 64 06/11/22 12:07 Resp 16 06/11/22 12:07 BP 149/59 H 06/11/22 12:07 Pulse Ox 97 06/11/22 12:07 O2 Del Method 06/11/22 12:07 O2 Flow Rate 2 06/11/22 12:07 BMI result Body Mass Index 26.2 Const: Other: General awake alert x3 in no acute distress.? Neck? no JVD. CVS? regular rate rhythm, systolic murmur Respiratory lungs clear to auscultation, no respiratory distress, no wheeze, no rhonchi. Gastrointestinal abdomen soft, nontender, bowel sounds audible,no guarding , no rigidity. Extremities no edema. Neuro nonfocal Skin no rash Psych appropriate affect Objective Data Active Medications Acetaminophen (Acetaminophen 325 Mg Tablet) 650 mg PO Q6H PRN PRN Reason: Pain, Mild (Pain Scale 1-3) Apixaban (Apixaban 5 Mg Tablet) 5 mg PO BID [facility] Last Admin: 06/11/22 08:29 Dose: 5 mg Documented By: GLYNN Atorvastatin Calcium (Atorvastatin Calcium 10 Mg Tablet) 10 mg PO BEDTIME [facility] Last Admin: 06/10/22 20:40 Dose: 10 mg Documented By: KRISTIAN Cyanocobalamin (Cyanocobalamin (Vitamin B-12) 1,000 Mcg Tablet) 1,000 mcg PO DAILY [facility] Last Admin: 06/11/22 08:29 Dose: 1,000 mcg Documented By: GLYNN Diltiazem HCl (Diltiazem Hcl Cd 240 Mg Cap.Er.Deg) 240 mg PO DAILY [facility]; Protocol Last Admin: 06/11/22 08:29 Dose: 240 mg Documented By: GLYNN Docusate Sodium (Docusate Sodium 100 Mg Capsule) 100 mg PO DAILY PRN PRN Reason: Constipation Ferrous Sulfate (Ferrous Sulfate 324 Mg Tablet.) 324 mg PO BIDWM [facility] Last Admin: 06/11/22 08:28 Dose: Not Given Documented By: GLYNN Non-Admin Reason: NPO Guaifenesin (Guaifenesin 200 Mg/10 Ml 10 Ml Liquid) 10 ml PO Q6H PRN PRN Reason: Cough Lactated Ringer's (Lr) 1,000 mls @ 50 mls/hr IVCONT .Q20H [facility] Last Admin: 06/11/22 09:19 Dose: 50 mls/hr Documented By: ANATOLY Metoprolol Tartrate (Metoprolol Tartrate 12.5 Mg Halftab) 12.5 mg PO Q6H [facility]; Protocol Last Admin: 06/11/22 05:20 Dose: 12.5 mg Documented By: ROCK Omeprazole (Omeprazole 40 Mg Capsule.) 40 mg PO DAILY@0630 [facility] Last Admin: 06/11/22 05:21 Dose: Not Given Documented By: ROCK Non-Admin Reason: NPO Ondansetron HCl (Ondansetron Hcl 4 Mg/2 Ml Vial) 4 mg IVPUSH Q8H PRN PRN Reason: Nausea and Vomiting Pharmacy Consult (Consult Rx Perform Med Rec) 1 each MISCELLANE ONCE PRN PRN Reason: Consult order Sodium Chloride (0.9 % Sodium Chloride Flush 3 Ml Syringe) 3 ml IVFLUSH QSHIFT [facility] Last Admin: 06/11/22 08:30 Dose: 3 ml Documented By: GLYNN Vitamin D (Cholecalciferol (Vitamin D3) 25 Mcg Tablet) 25 mcg PO DAILY [facility] Last Admin: 06/11/22 08:29 Dose: 25 mcg Documented By: GLYNN Labs 06/10/22 05:34 06/11/22 05:19 Labs: Laboratory Results - last 24 hr 06/11/22 05:19 Estim Creat Clear Calc 73.4 Estimated GFR > 60 Microbiology Microbiology Results: Microbiology 06/05/22 09:06 Blood Culture - Final Blood - Venous No growth after 5 days. 06/05/22 09:06 Blood Culture - Final Blood - Venous No growth after 5 days. Assessment and Plan (1) Atrial fibrillation with RVR: Status: Acute (2) Right lower lobe pneumonia: Status: Acute Plan 77-year-old female with history Sevilla's esophagus, hypertension, history of bleeding gastric ulcer and AVMs requiring multiple blood transfusions in 02/11 and 11/12, osteopenia, hypercholesterolemia, vitamin B12 deficiency, and vitamin- D deficiency admitted for AFib with RVR; rate control when sedentary however variable with movement 1.New onset atrial fibrillation with rapid ventricular response -underwent successful cardioversion this morning now in normal sinus rhythm Will continue Cardizem and Eliquis, will DC Lopressor 12.5 q.6 hours Cardiology recommend Multaq 400 mg by mouth b.i.d. 2. Right lower lobe pneumonia -s/p vanco/cefepime -titrate O2 to maintain sats greater than 90%, patient not on home oxygen -continue cough medications and p.r.n. DuoNebs 3.History UGIB -continue PPI seen by GI ,no contraindication to anticoagulation 4. Leukocytosis improved but persistent likely due to steroids, no diarrhea DVT prophylaxis on Eliquis DNR/DNI Patient requires ongoing hospitalization for close telemetry monitoring post cardioversion and monitoring on Multaq Time Spent With Patient Time: Total time managing care of this patient today ____ minutes. Quality Stroke Does the patient have a stroke diagnosis?: No VTE Prior VTE?: No VTE Risk Level:: Medical - moderate - high VTE Device Contraindication: Treatment Not Indicated VTE Drug Contraindication: N/A - Med Ordered
[2022-06-11] MEDS: Ferrous Sulfate 324 MG TABLET.DR PO (16:50)
[2022-06-11] MEDS: Atorvastatin Calcium 10 MG TABLET PO (20:36)
[2022-06-11] MEDS: Dronedarone HCl 400 MG TABLET PO (20:36)
[2022-06-12] MEDS: 0.9 % Sodium Chloride Flush 3 ML SYRINGE IVFLUSH ×2 (00:24→10:21)
--- NOTE | 2022-06-12 01:00 | PC.NURSE ---
Sinus bradycardia as low as 42.Dr Purdy updated.Order for stat EKG.Done.Also updated regarding IV fluids noted in MAY. states to hold IV fluids as patient is eating and drinking.
--- NOTE | 2022-06-12 01:08 | ECG_ITS ---
Test Reason : cp Blood Pressure : / mmHG Vent. Rate : 057 BPM Atrial Rate : 057 BPM P-R Int : 164 ms QRS Dur : 086 ms QT Int : 472 ms P-R-T Axes : 047 018 -19 degrees QTc Int : 459 ms Sinus bradycardia Nonspecific ST and T wave abnormality Abnormal ECG When compared with ECG of 11-JUN-2022 11:40, Premature atrial complexes are no longer Present Nonspecific T wave abnormality, improved in Anterolateral leads Referred By: Prakash Patel Electronically Signed By:SAMIRA DIAZ MD
[2022-06-12 03:51] VITALS: BP 124/60; PULSE 56; RESP 18; TEMP 37.1; O2SAT 96
[2022-06-12] MEDS: Omeprazole 40 MG CAPSULE.DR PO (05:31)
[2022-06-12 07:01] LABS: Creatinine Clr Calc Pharmacy 64.8; Estimated Glomerular Filt Rate > 60
[2022-06-12 07:27] VITALS: BP 152/69; PULSE 59; RESP 18; TEMP 36.5; O2SAT 96
--- NOTE | 2022-06-12 07:39 | HO.POSTANES ---
Post Anesthesia Evaluation Post Anesthesia Evaluation Vital Signs: Vital Signs Temp Pulse Resp BP Pulse Ox O2 Del Method 06/12/22 07:27 97.7 F 59 18 152/69 H 96 Room Air 06/12/22 03:51 98.7 F 56 18 124/60 96 Room Air 06/11/22 23:43 98.7 F 58 18 128/60 96 Room Air Anesthesia: Monitored Mental Status: Awake Pain Control: Satisfactory Nausea/Vomiting: None Hydration: Adequate Anesthesia-Related Issues: No Anes. Related Issues
[2022-06-12 10:10] VITALS: O2SAT 96
[2022-06-12] MEDS: Ferrous Sulfate 324 MG TABLET.DR PO (10:19)
[2022-06-12] MEDS: Cyanocobalamin (Vitamin B-12) 1,000 MCG TABLET 1000 MCG PO (10:19)
[2022-06-12] MEDS: dilTIAZem HCL CD 240 MG CAP.ER.DEG PO (10:19)
[2022-06-12] MEDS: Apixaban 5 MG TABLET PO (10:21)
[2022-06-12] MEDS: Dronedarone HCl 400 MG TABLET PO (10:21)
[2022-06-12] MEDS: Cholecalciferol (Vitamin D3) 25 MCG TABLET PO (10:21)
--- NOTE | 2022-06-12 10:21 | PM.PNCARD ---
Subjective Subjective Date of Service: 06/12/22 Principal diagnosis: Atrial fibrillation rapid ventricular response and hypertrophic cardiomyopa Interval history: Patient status post cardioversion. Today she says she feels a lot better. No symptoms palpitation. Also shortness of breath has improved. Denies any lightheadedness. Blood pressure is slightly on the elevated side. Review of Systems Constitutional: Reports no additional constitutional complaints Cardiovascular: Reports no additional cardiovascular complaints Respiratory: Reports no additional respiratory complaints Reports system reviewed and no additional complaints, except as documented Physical Exam Vital Signs: Last Vital Signs Temp 97.7 F 06/12/22 07:27 Pulse 59 06/12/22 07:27 Resp 18 06/12/22 07:27 BP 152/69 H 06/12/22 07:27 Pulse Ox 96 06/12/22 07:27 O2 Del Method 06/12/22 07:27 O2 Flow Rate 2 06/11/22 16:48 BMI result Body Mass Index 26.2 Const General: cooperative, comfortable, no acute distress, alert, awake and anxious Nutritional Appearance: average body habitus Orientation/consciousness: patient oriented x3 Neck Neck: Yes trachea midline, Yes supple and Yes no JVD Resp Effort & Inspection: decreased respiratory effort Auscultation: no rales, no wheezes and diminished lung sounds Cardio Jugular venous distension: no JVD Rate: regular rate Rhythm: regular rhythm Heart sounds: S1 normal heart sound present, S2 normal heart sound present, no click, no gallops and Murmur heart sound present systolic mid, decrescendo, crescendo, harsh, at the left sternal border and other (Increases with Valsalva was suggestive dynamic obstruction) GI Auscultation: normal bowel sounds Skin General skin exam: no rashes or lesions noted Neuro General: patient oriented x3 and no focal motor deficits Extrem General: Yes no clubbing, cyanosis or edema Objective Labs and Meds 06/10/22 05:34 06/12/22 05:45 Lab results: Laboratory Results - last 24 hr 06/12/22 05:45 Creatinine 0.76 Estim Creat Clear Calc 64.8 Estimated GFR > 60 Progress Note: A&P Assessment and plan (1) Paroxysmal atrial fibrillation: Status: Acute Assessment and Plan: Paroxysmal atrial fibrillation status post cardioversion. She does have left atrial enlargement related to hypertrophic cardiomyopathy. Likely for recurrence is present. Continue antiarrhythmic drug therapy with Multaq. Also continue full oral anticoagulation Eliquis. Likelihood of recurrence was discussed with the patient. Avoidance of stimulants was discussed. Follow-up as outpatient patient wishes to follow-up locally in cardiology clinic. Continue concomitant Cardizem therapy. Outpatient Holter will be pursued. (2) Hypertrophic cardiomyopathy: Status: Acute Assessment and Plan: Hypertrophic obstructive cardiomyopathy appears to have dynamic obstruction. Will assess with symptoms. If she has symptoms should pursue medical therapy. There is medical therapy available for it now. Outpatient follow up with echocardiogram. Will follow up if patient wishes in the clinic Time Spent With Patient Time: Total time managing care of this patient today ____ minutes. Progress Note: Quality Stroke Does the patient have a stroke diagnosis?: No Procedures Date of Service Date of Service: 06/12/22
--- NOTE | 2022-06-12 10:44 | P.DS_ITS ---
DS: Providers Provider Date of Service: 06/12/22 Date of admission: 06/05/22 11:48 Primary care physician: Colt Teran MD Consults: 06/05/22 11:47 Consult to Cardiology Routine Consulting Provider: [facility] Cardiovascular Services Reason for consultation: new onset afib rvr Consult to Gastroenterology Routine Consulting Provider: Emiliano Herrera Reason for consultation: new onset afib, hx recurrent GI bleed. Anticoag recommendation 06/08/22 11:18 Consult to Infectious Diseases Stat Consulting Provider: [facility] [place] Infectious Disease Reason for consultation: Pneumonia Has provider been notified: Yes DS: Diagnosis Discharge Diagnosis (1) Paroxysmal atrial fibrillation: Status: Acute (2) Hypertrophic cardiomyopathy: Status: Acute DS: Summary Hospital Course Hospital Course: History of presenting illness Chief complaint fever, cough and weakness. 77-year-old female with history Sevilla's esophagus, hypertension, history of bleeding gastric ulcer and AVMs requiring multiple blood transfusions in 02/11 and 11/12, osteopenia, hypercholesterolemia, vitamin B12 deficiency, and vitamin- D deficiency presented to the ED earlier this morning via EMS for evaluation of generalized weakness and cough.? The patient was seen in the ED on 05/23 and was diagnosed with left lower lobe pneumonia treated with doxycycline and prednisone which she reports she completed as prescribed.? However last night she developed fevers of 102.1 with chills and new right-sided chest congestion with productive cough.? There is associated right sided pleuritic chest pain.? She also developed weakness and fatigue as well as palpitations and feels she has had decreased urinary output.? She reports her partner is sick with similar symptoms at home.? Denies any shortness of breath, lightheadedness, chest pain.? On arrival, patient was afebrile but tachycardic to 160, no hypotension, oximetry 92% and placed on 2 L supplemental O2.? Arrival, leukocytosis of 26.1, H/H 10.0/31.5%.? PT 16.3, INR 1.4.? Renal function baseline, electrolyte levels normal.? Troponin 27.6, BNP 414.? Negative for COVID-19.? CXR negative for any acute cardiopulmonary disease showing resolved left lower lobe pneumonia.? EKG showing atrial fibrillation with RVR, rate [address] abnormality including inversions in the lateral leads.? Patient started on Cardizem drip in the ED.? To be admitted for AFib with RVR. Hospital course 77-year-old female with history Sevilla's esophagus, hypertension, history of bleeding gastric ulcer and AVMs requiring multiple blood transfusions in 02/11 and 11/12, osteopenia, hypercholesterolemia, vitamin B12 deficiency, and vitamin- D deficiency admitted for AFib with RVR and right-sided pneumonia 1. Admitted with New onset atrial fibrillation with rapid ventricular response, initially treated with IV Cardizem however patient remained in atrial fibrillation therefore underwent successful cardioversion on June 11 Postprocedure patient placed on Multaq, given left atrial enlargement with high risk of recurrence, echocardiogram showed hypertrophic obstructive cardiomyopathy, therefore recommend close outpatient follow-up with Cardiology for re-evaluation, being discharged on Cardizem CD, Multaq 400 mg b.i.d. and Eliquis 5 mg twice daily 2. Right lower lobe pneumonia finish course of antibiotic oxygenation is stable on room air, noted to have persistent leukocytosis likely due to steroids recommend outpatient follow-up of CBC 3.History UGIB evaluated by Dr. Herrera from Gastroenterology he recommend to continue PPI and increase dose of iron to twice daily hematocrit remains at baseline. -continue PPI seen by GI ,no contraindication to anticoagulation Time Spent with Patient Time attestation: Total time managing care of this patient today ____ minutes. Discharge coordination time: Greater than 30 minutes Quality: Safe Use of Opioids Does Pt have an Active Cancer Diagnosis on the Problem List?: No Quality: Stroke Does the patient have a stroke diagnosis?: No Physical Exam Vital Signs: Vital Signs: Last Vital Signs Temp 97.7 F 06/12/22 07:27 Pulse 59 06/12/22 07:27 Resp 18 06/12/22 07:27 BP 152/69 H 06/12/22 07:27 Pulse Ox 96 06/12/22 07:27 O2 Del Method 06/12/22 07:27 O2 Flow Rate 2 06/11/22 16:48 BMI result Body Mass Index 26.2 Const: Other: General awake alert x3 in no acute distress.? Neck? no JVD. CVS? regular rate rhythm, systolic murmur Respiratory lungs clear to auscultation, no respiratory distress, no wheeze, no rhonchi. Gastrointestinal abdomen soft, nontender, bowel sounds audible,no guarding , no rigidity. Extremities no edema. Neuro nonfocal Skin no rash Psych appropriate affect DS: Data Data Completed and Pending Completed studies during hospitalization [Text1]: Procedures Excision of Large Intestine, Via Natural or Artificial Opening Endoscopic, Diagnostic (10/29/21) Inspection of Upper Intestinal Tract, Via Natural or Artificial Opening Endoscopic (10/29/21) Transfusion of Nonautologous Red Blood Cells into Peripheral Vein, Percutaneous Approach (10/29/21) Labs on day of discharge: Laboratory Results - last 24 hr 06/12/22 05:45 Creatinine 0.76 Estim Creat Clear Calc 64.8 Estimated GFR > 60 Discharge Plan Discharge Anticipated Discharge Date/Time: 06/12/22 10:30 Patient Disposition: Home, Self-Care Discharge Diagnosis: New onset atrial fibrillation Right lower lobe pneumonia Leukocytosis Referrals: Colt Teran MD [Primary Care Provider] - 1 Week Discharge Medications: New diltiazem HCl 240 mg Capsule,Extended Release 24hr 240 mg PO DAILY Qty: 30 0RF Protocol: Hold for SBP/HR < HOLD for SBP < : 90 HOLD for HR < : 60 Multaq 400 mg Tablet 400 mg PO BID Qty: 60 0RF Eliquis 5 mg Tablet 5 mg PO BID Qty: 60 0RF Continued raloxifene 60 mg tablet 60 mg PO DAILY 90 Days Qty: 90 3RF atorvastatin 10 mg tablet 10 mg PO BEDTIME cholecalciferol (vitamin D3) 25 mcg (1,000 unit) capsule 25 mcg PO DAILY 90 Days Qty: 90 3RF cyanocobalamin (vitamin B-12) [Vitamin B-12] 1,000 mcg tablet 1,000 mcg PO DAILY 90 Days Qty: 90 3RF omeprazole 40 mg capsule,delayed release(DR/EC) 40 mg PO DAILY@0630 Changed ferrous sulfate 324 mg (65 mg iron) tablet,delayed release (DR/EC) 324 mg PO BID Qty: 60 0RF Discontinued amlodipine 2.5 mg tablet 2.5 mg PO DAILY 90 Days Qty: 90 0RF Discharge Orders: Discharge Order (Routine); Ordered 06/12/22 Ordered By: Brittani Pringle Diet: Advance to usual diet Activity on Discharge: As tolerated Stand Alone Forms: Patient Portal Discharge page Care Plan Goals: Continue Cardizem CD 2 40 mg by mouth daily Multaq 400 mg 1 tablet twice daily Eliquis 5 mg 1 tablet twice daily Increase dose of iron tablet to twice daily Return to [place] [facility] if noted to have lightheadedness dizziness chest pain palpitations or shortness of breath Avoid strenuous exercise, limit caffeine products and alcohol Health Concerns: stop amlodipine and take all medications as prescribed Plan of Treatment: 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 Dacosta Assessment: As above
--- NOTE | 2022-06-12 10:59 | MHC.CM.PN ---
Patient has been medically cleared for dc to home today, self care.
[2022-06-13 06:42] LABS: Strep Pneumo Ag urine Not Detected (Not Detected)
[2022-06-15 03:29] LABS: Legionella Ag Urine Not Detected (Not Detected)
== END 2022-06-12 15:00 | disposition home or self-care (01) | DRG 201 ==
LOC: HO.ED 09:03 → HO.EDOVER 11:54 → HO.IMC 17:57
PROVIDERS: Hospitalist; Internal Medicine; Internal Medicine Cardiovascular Disease; Admitting Provider Physician Assistant; Emergency Provider Emergency Medicine; PCP Internal Medicine; Visit Provider Hospitalist
PROC: 5A2204Z Restoration of Cardiac Rhythm, Single (ICD-10-PCS; CPT 93312; principal; 2022-06-11 10:00)
PROC: 5A2204Z Restoration of Cardiac Rhythm, Single (ICD-10-PCS; 2022-06-11 10:00)
DX: I48.19 Other persistent atrial fibrillation (principal); J18.9 Pneumonia, unspecified organism; D68.32 Hemorrhagic disorder due to extrinsic circulating anticoagulants; I42.1 Obstructive hypertrophic cardiomyopathy; R04.2 Hemoptysis; Z66 Do not resuscitate; D50.9 Iron deficiency anemia, unspecified; D72.829 Elevated white blood cell count, unspecified; K21.9 Gastro-esophageal reflux disease without esophagitis; K22.70 Barrett's esophagus without dysplasia; M85.80 Other specified disorders of bone density and structure, unspecified site; E78.00 Pure hypercholesterolemia, unspecified; T45.515A Adverse effect of anticoagulants, initial encounter; Z20.822 Contact with and (suspected) exposure to COVID-19; Z88.1 Allergy status to other antibiotic agents; Z79.899 Other long term (current) drug therapy
CPT/HCPCS: 36415; 71045; 71250; 80048; 80053; 80202; 81001; 82565; 83605; 83735; 83880; 84443; 84484; 85025; 85610; 87040; 87086; 87449; 87635; 87640; 87641; 87899; 92960; 93005; 93306; 99285; J0692; J1650; J1940; J2370; J2930; J3010; J3370; J3371; J3475; Q9957

== ENCOUNTER 2022-06-13 09:43 | Emergency (ER) | payer BC, SELFPAY ==
--- NOTE | 2022-06-13 | ECG_ITS ---
Test Reason : repeat Blood Pressure : / mmHG Vent. Rate : 063 BPM Atrial Rate : 063 BPM P-R Int : 148 ms QRS Dur : 094 ms QT Int : 470 ms P-R-T Axes : 035 018 072 degrees QTc Int : 480 ms Sinus rhythm with Premature supraventricular complexes Left ventricular hypertrophy with repolarization abnormality ( R in aVL , Sokolow-Gtz , Segundo product ) Abnormal ECG When compared with ECG of 13-JUN-2022 11:38, No significant change was found Referred By: Loni Berumen Electronically Signed By:SAMIRA DIAZ MD
[2022-06-13 09:45] VITALS: BP 155/53; PULSE 81; RESP 18; TEMP 36.6; O2SAT 95; BMI 26.6
[2022-06-13 10:13] VITALS: BP 147/49; PULSE 68; RESP 17; TEMP 36.9; O2SAT 95
--- NOTE | 2022-06-13 10:20 | ED_ITS ---
HPI - General Adult General Chief complaint: General Medical Stated complaint: Bilateral leg swelling/DVT? Time Seen by Provider: 06/13/22 10:20 Source: patient, family and RN notes reviewed Mode of arrival: ambulatory Limitations: no limitations History of Present Illness HPI narrative: This is a 77-year-old female, with a past medical history of a new onset atrial fibrillation with rapid ventricular response (recent admission from 05/26-06/12), Sevilla's esophagus, hypertension, history of bleeding gastric ulcer and AVMs requiring multiple blood transfusions in 02/11 and 11/12, osteopenia, and hypercholesterolemia, who presents to the emergency department today with complaints of weakness since today. Patient reports that she had a recent admission for pneumonia and diagnosis of new onset atrial fibrillation with RVR which required cardioversion. Patient reports that today she feels as though both of her legs are swollen and stiff and she is unable to perform her daily walk which she was able to do prior to this admission. She denies any shortness of breath, cough, headaches, chest pain, palpitations, abdominal pain, nausea, vomiting, or diarrhea. No other complaints or concerns at this time. Patient was not seen by Physical therapy during her admission. MD complaint: Weakness Onset (ago): day(s) Location: lower extremity Radiation: non-radiation Severity: moderate Quality: aching Pain Consistency: intermittent Relieving factors: none Exacerbating factors: none Associated symptoms: denies other symptoms Treatments prior to arrival: none Related Data Home Medications Medication Instructions Recorded Confirmed omeprazole 40 mg capsule,delayed 40 mg PO DAILY@0630 08/10/21 06/13/22 release atorvastatin 10 mg tablet 10 mg PO BEDTIME 06/05/22 06/13/22 amiodarone 200 mg tablet 400 mg PO BID 06/13/22 06/13/22 Previous Rx's Medication Instructions Recorded cholecalciferol (vitamin D3) 25 25 mcg PO DAILY 90 days #90 caps 09/22/20 mcg (1,000 unit) capsule cyanocobalamin (vitamin B-12) 1,000 mcg PO DAILY 90 days #90 tabs 09/22/20 1,000 mcg tablet (Vitamin B-12) raloxifene 60 mg tablet 60 mg PO DAILY 90 days #90 tabs 09/04/21 apixaban 5 mg tablet (Eliquis) 5 mg PO BID #60 tabs 06/12/22 diltiazem HCl 240 mg 240 mg PO DAILY #30 caps 06/12/22 capsule,extended release 24 hr ferrous sulfate 324 mg (65 mg 324 mg PO BID #60 tabs 06/12/22 iron) tablet,delayed release hydroxyzine HCl 10 mg tablet 10 mg PO BID PRN anxiety #10 tabs 06/13/22 Allergies Allergy/AdvReac Type Severity Reaction Status Date / Time enflurane [ENFLURANE] Allergy Severe Per Verified 04/26/22 16:14 Patient Liver toxicity piperacillin [Zosyn] Allergy Severe Rash Verified 06/11/22 09:12 tazobactam [Zosyn] Allergy Severe Rash Verified 06/11/22 09:11 Review of Systems Review of Systems: Yes all other systems are reviewed and are negative [facility] Past Medical History Medical History (Updated 06/13/22 @ 13:53 by AGATA Zazueta) Anemia Atrial fibrillation with RVR Sevilla's esophagus Benign essential hypertension Cardiac murmur Gastric ulcer Hiatal hernia History of blood transfusion Osteopenia Overweight (BMI 25.0-29.9) Primary osteoarthritis of hand Pure hypercholesterolemia Vitamin B12 deficiency Vitamin D deficiency Surgical History History of appendectomy History of esophagogastroduodenoscopy (EGD) History of hysterectomy Family History Family History Father Hypertension Mother Stroke Social History Social History Household Members: Spouse Housing: House Do you presently have visiting nurse or other home services: No Alcohol intake: former Patient Tobacco Use Status: Never used Tobacco Smoked in Last 30 Days: No e-Cigarette/Vaping Use: Never Used Second Hand Smoke Exposure: No Use of substances other than those prescribed or required for medical reasons: No Advance Directives: Yes Advance Directives on File: Yes Advance Directives Date on File: 01/22/21 service: No Current occupational status: retired Cognitive needs: No Hearing needs: No Vision needs: Yes (glasses) Physical Exam ED Vital Signs: Vital Signs - 24 hr 06/13/22 09:45 06/13/22 10:13 06/13/22 12:43 Temperature 97.9 F 98.4 F Pulse Rate 81 68 60 Respiratory Rate 18 17 16 Blood Pressure 155/53 H 147/49 H 144/54 H Pulse Oximetry 95 95 98 Oxygen Delivery Method Room Air Room Air Room Air 06/13/22 13:36 Temperature Pulse Rate 60 Respiratory Rate Blood Pressure 144/54 H Pulse Oximetry 98 Oxygen Delivery Method BMI result Body Mass Index 26.6 Appearance: Alert. Oriented X3. No acute distress. Eyes: Pupils equal, round and reactive to light. ENT: Pharynx normal. Neck: Normal inspection. Neck supple. CVS: Normal heart rate and rhythm. Pulses normal. Respiratory: No respiratory distress. Breath sounds normal. Lungs clear to auscultation bilaterally. No wheezes, rhonchi or rales. Abdomen: Soft and nontender. +BS x4 Skin: Skin warm and dry. Normal skin color. Normal skin turgor. No rashes. Extremities: 1+ pitting edema noted to lower extremities bilaterally. no calf tenderness, redness. Neuro: Oriented X 3. No motor deficit. No sensory deficit. Course Reevaluation(s) Reevaluation #1: Patient's lab work is unremarkable. Her leukocytosis is down trending. Her BNP is lower than prior. Will place patient in physician observation at this time. Patient is pending physical therapy evaluation for likely need of short-term rehab vs in home PT? Case Management has been consulted and will see the patient. Patient agrees with plan all questions have been answered. Will continue to monitor Time: 12:30 Reevaluation #2: Seen by PT who is recommending home w/ PT. Nursing care at home also arranged by CM. Patient had brief run of afib while in the ER. Just started on amio yesterday. Back in NSR. She is anticoagulated with normal HR. She is stable for d/c home with outpatient cardiology follow up. Return precautions discussed and all questions were answered. Time: 15:04 Medical Decision Making Medical Decision Making MDM Narrative: This is a 77-year-old female, with a past medical history of a new onset atrial fibrillation with rapid ventricular response (recent admission from 05/26-06/12), Sevilla's esophagus, hypertension, history of bleeding gastric ulcer and AVMs requiring multiple blood transfusions in 02/11 and 11/12, osteopenia, and hypercholesterolemia, who presents to the emergency department today with complaints of weakness since today. Labs and EKG ordered, which were unremarkable. She had 2 recent admissions for PNA and rapid afib. No PT during last admission and she is deconditioned. She had short run of afib here, back in sinus now. asymptomatic during the episode. she has only taken 2 doses of amiodarone so far. she plans to f/u with cardiology. at this time she is stable for d/c home with home PT and nursing care. Patient and significant other agree with plan, all questions were answered. Differential Diagnosis Differential Diagnoses: The differential diagnosis associated with the presentation includes Deconditioning, dehydration, electrolyte abnormality, viral syndrome, rapid afib, CHF, anxiety, anemia, UTI Admission/Observation Consideration of admission/observation: Escalation of care including admission/observation considered considered admission given age and comorbidities Lab Data MDM Lab Attestation statement: I reviewed the patient's lab results. leukocytosis is improving from prior. 06/13/22 11:24 06/13/22 11:24 Labs: Lab Results 06/13/22 06/13/22 06/13/22 Range/Units 11:24 11:24 11:24 WBC 15.5 H (4.8-10.8) X10*3/uL RBC 3.58 L (4.20-5.50) X10*6/uL Hgb 9.9 L (12.0-16.0) g/dl Hct 31.1 L (37.0-47.0) % MCV 86.9 (80.0-98.0) fL MCH 27.7 (27.0-33.0) pg MCHC 31.8 (31.0-35.0) g/dl RDW 12.8 (11.0-16.0) % Plt Count 299 (160-400) X10*3/uL MPV 9.4 (9.4-12.3) fL Immature Gran % (Auto) 0.7 H (0.0-0.4) % Neut % (Auto) 80.3 H (45-73) % Lymph % (Auto) 12.6 L (20-40) % [place] % (Auto) 5.5 (2-11) % Eos % (Auto) 0.8 (0-4) % Baso % (Auto) 0.1 (0-2) % Lymph # (Auto) 2.0 (1.2-4.9) X10*3/uL [place] # (Auto) 0.9 (0.1-1.2) X10*3/uL Eos # (Auto) 0.1 (0.0-0.4) X10*3/uL Baso # (Auto) 0.0 (0.0-0.2) X10*3/uL Abs Immat Gran (auto) 0.11 H (0.00-0.03) X10*3/uL Absolute Neuts (auto) 12.5 H (2.0-8.3) x10*3/uL Absolute Nucleated RBC 0.000 (0.0-0.012) X10*3/uL Nucleated RBC % (auto) 0.0 (0.0-0.2) /100WBC Sodium 142 (135-145) mmol/L Potassium 3.5 D (3.3-5.1) mmol/L Chloride 107 (96-108) mmol/L Carbon Dioxide 27 (22-29) mmol/L Anion Gap 12 (12-20) BUN 15 (9-16) mg/dL Creatinine 0.73 (0.5-1.4) mg/dL Estim Creat Clear Calc 65.6 Estimated GFR > 60 Random Glucose 124 H (60-115) mg/dL Calcium 8.0 L D (8.4-10.2) mg/dL Magnesium 2.0 (1.6-2.6) mg/dL Total Bilirubin 0.6 (0.0-1.0) mg/dL Direct Bilirubin 0.2 (0.0-0.5) mg/dL AST 21 (5-31) U/L ALT 56 H (0-31) U/L Alkaline Phosphatase 50 (39-117) U/L B-Natriuretic Peptide 177 H (<100) pg/mL Total Protein 5.0 L (6.5-8.0) g/dL Albumin 2.9 L (3.5-5.0) g/dL Urine Color Urine Appearance Urine pH (5.0-9.0) Ur Specific [place] (1.005-1.025) Urine Protein (Neg-Trace) mg/dL Urine Glucose (UA) (Negative) mg/dL Urine Ketones (Negative) mg/dL Urine Blood (Negative) Urine Nitrite (Negative) Ur Leukocyte Esterase (Negative) Urine RBC (0-2) /HPF Urine WBC (0-5) /HPF Ur Squamous Epith Cells (0-2) /HPF Urine Bacteria (None Seen) Hyaline Casts (0-2) /LPF COVID-19 (TIARA) (Negative) COVID-19 Clin Com 06/13/22 06/13/22 Range/Units 11:24 12:47 WBC (4.8-10.8) X10*3/uL RBC (4.20-5.50) X10*6/uL Hgb (12.0-16.0) g/dl Hct (37.0-47.0) % MCV (80.0-98.0) fL MCH (27.0-33.0) pg MCHC (31.0-35.0) g/dl RDW (11.0-16.0) % Plt Count (160-400) X10*3/uL MPV (9.4-12.3) fL Immature Gran % (Auto) (0.0-0.4) % Neut % (Auto) (45-73) % Lymph % (Auto) (20-40) % [place] % (Auto) (2-11) % Eos % (Auto) (0-4) % Baso % (Auto) (0-2) % Lymph # (Auto) (1.2-4.9) X10*3/uL [place] # (Auto) (0.1-1.2) X10*3/uL Eos # (Auto) (0.0-0.4) X10*3/uL Baso # (Auto) (0.0-0.2) X10*3/uL Abs Immat Gran (auto) (0.00-0.03) X10*3/uL Absolute Neuts (auto) (2.0-8.3) x10*3/uL Absolute Nucleated RBC (0.0-0.012) X10*3/uL Nucleated RBC % (auto) (0.0-0.2) /100WBC Sodium (135-145) mmol/L Potassium (3.3-5.1) mmol/L Chloride (96-108) mmol/L Carbon Dioxide (22-29) mmol/L Anion Gap (12-20) BUN (9-16) mg/dL Creatinine (0.5-1.4) mg/dL Estim Creat Clear Calc Estimated GFR Random Glucose (60-115) mg/dL Calcium (8.4-10.2) mg/dL Magnesium (1.6-2.6) mg/dL Total Bilirubin (0.0-1.0) mg/dL Direct Bilirubin (0.0-0.5) mg/dL AST (5-31) U/L ALT (0-31) U/L Alkaline Phosphatase (39-117) U/L B-Natriuretic Peptide (<100) pg/mL Total Protein (6.5-8.0) g/dL Albumin (3.5-5.0) g/dL Urine Color Yellow Urine Appearance Clear Urine pH 7.5 (5.0-9.0) Ur Specific [place] 1.010 (1.005-1.025) Urine Protein Negative (Neg-Trace) mg/dL Urine Glucose (UA) Negative (Negative) mg/dL Urine Ketones Negative (Negative) mg/dL Urine Blood Negative (Negative) Urine Nitrite Negative (Negative) Ur Leukocyte Esterase Moderate (2+) H (Negative) Urine RBC 0-2 (0-2) /HPF Urine WBC 0-5 (0-5) /HPF Ur Squamous Epith Cells 0-2 (0-2) /HPF Urine Bacteria None Seen (None Seen) Hyaline Casts 0-2 (0-2) /LPF COVID-19 (TIARA) Negative (Negative) COVID-19 Clin Com See Note Independent Interpretation I performed an independent interpretation of an: EKG Interpretation: EKG #1 @ 11:38 - sinus rhythm, HR 63 bpm, LVH, no ST segment elevations or depressions EKG #2 @ 12:52 - sinus rhythm, HR 63 bpm, LVH, no ST segment elevations or depressions. no change from prior Independent Historian Clinical information obtained from an independent historian. History obtained from or confirmed by: Spouse External Record Review External record reviewed: Inpatient record, Prior outpatient labs and Prior outpatient radiology Prescription Management I considered prescription management with: Other Chronic Conditions Patient?s care impacted by: Other (afib, cardiomyopathy) Critical Care Time Critical Care Time Critical Care Time: No Discharge Plan Discharge Clinical Impression: Physical deconditioning Patient Disposition: Home, Self-Care Instructions: Weakness (ED) Additional Instructions: Your lab work today was unremarkable. You are being sent home with physical therapy and nursing help at home. Take all of your medications as prescribed. Follow up with cardiology If you develop new or worsening symptoms call 911 or come back to the ER for further evaluation. Prescriptions: New hydroxyzine HCl 10 mg tablet 10 mg PO BID PRN (Reason: anxiety) Qty: 10 0RF No Action raloxifene 60 mg tablet 60 mg PO DAILY 90 Days Qty: 90 3RF atorvastatin 10 mg tablet 10 mg PO BEDTIME diltiazem HCl 240 mg Capsule,Extended Release 24hr 240 mg PO DAILY Qty: 30 0RF Protocol: Hold for SBP/HR < HOLD for SBP < : 90 HOLD for HR < : 60 Eliquis 5 mg Tablet 5 mg PO BID Qty: 60 0RF ferrous sulfate 324 mg (65 mg iron) tablet,delayed release (DR/EC) 324 mg PO BID Qty: 60 0RF amiodarone 200 mg tablet 400 mg PO BID cholecalciferol (vitamin D3) 25 mcg (1,000 unit) capsule 25 mcg PO DAILY 90 Days Qty: 90 3RF cyanocobalamin (vitamin B-12) [Vitamin B-12] 1,000 mcg tablet 1,000 mcg PO DAILY 90 Days Qty: 90 3RF omeprazole 40 mg capsule,delayed release(DR/EC) 40 mg PO DAILY@0630 Referrals: [facility] [Provider Group] (afib w/ RVR, s/p cardioversion, hypertrophic cardiomyopathy) Colt Teran MD [Primary Care Provider] - Interventions: ED Discharge Assessment Last Done: 06/13/22 15:08
--- NOTE | 2022-06-13 10:44 | ECG_ITS ---
Test Reason : weakness Blood Pressure : / mmHG Vent. Rate : 063 BPM Atrial Rate : 057 BPM P-R Int : 152 ms QRS Dur : 094 ms QT Int : 480 ms P-R-T Axes : 043 019 097 degrees QTc Int : 491 ms Sinus bradycardia with Premature atrial complexes Left ventricular hypertrophy with repolarization abnormality ( R in aVL , Sokolow-Gtz , Segundo product ) Prolonged QT Abnormal ECG When compared with ECG of 12-JUN-2022 01:07, Premature atrial complexes are now Present Referred By: Sugey Thomson Electronically Signed By:SAMIRA DIAZ MD
[2022-06-13 11:29] LABS: MANUAL DIFF FLAG NO
[2022-06-13 11:33] LABS: Basophils Percent Auto 0.1 % (0-2); Eosinophils Absolute Auto 0.1 X10*3/uL (0.0-0.4); Eosinophils Percent Auto 0.8 % (0-4); Hematocrit 31.1 % (37.0-47.0); Hemoglobin 9.9 g/dl (12.0-16.0); Imm Gran Abs Auto 0.11 X10*3/uL (0.00-0.03); Imm Gran Pct Auto 0.7 % (0.0-0.4); Lymphocytes Percent Auto 12.6 % (20-40); Mean Corpuscular HGB Conc 31.8 g/dl (31.0-35.0); Mean Corpuscular Hemoglobin 27.7 pg (27.0-33.0); Mean Corpuscular Volume 86.9 fL (80.0-98.0); Mean Platelet Volume 9.4 fL (9.4-12.3); Monocytes Absolute Auto 0.9 X10*3/uL (0.1-1.2); Monocytes Percent Auto 5.5 % (2-11); Neutrophils Absolute Auto 12.5 x10*3/uL (2.0-8.3); Neutrophils Percent Auto 80.3 % (45-73); Platelet Count 299 X10*3/uL (160-400); Red Blood Count 3.58 X10*6/uL (4.20-5.50); Red Cell Distribution Width 12.8 % (11.0-16.0); White Blood Count 15.5 X10*3/uL (4.8-10.8)
[2022-06-13 11:46] LABS: COVID-19 Test Negative (Negative); IDNOW Serial# 08D9AD1C
[2022-06-13 12:09] LABS: Alanine Aminotransferase 56 U/L (0-31); Albumin Level 2.9 g/dL (3.5-5.0); Alkaline Phosphatase 50 U/L (39-117); Anion Gap 12 (12-20); Aspartate Amino Transferase 21 U/L (5-31); Bilirubin Direct 0.2 mg/dL (0.0-0.5); Bilirubin Total 0.6 mg/dL (0.0-1.0); Blood Urea Nitrogen 15 mg/dL (9-16); Carbon Dioxide 27 mmol/L (22-29); Chloride 107 mmol/L (96-108); Creatinine Clr Calc Pharmacy 65.6; Estimated Glomerular Filt Rate > 60; Glucose Random 124 mg/dL (60-115); Potassium 3.5 mmol/L (3.3-5.1); Sodium 142 mmol/L (135-145)
[2022-06-13 12:13] LABS: B Type Natriuretic Peptide 177 pg/mL (<100)
[2022-06-13 12:43] VITALS: BP 144/54; PULSE 60; RESP 16; O2SAT 98
--- NOTE | 2022-06-13 12:43 | PHA.MEDREC ---
Pharmacy Consult ? Medication Reconciliation Pharmacy has completed the medication reconciliation. Pt just discharged yesterday, did med rec based on discharge summary
[2022-06-13 12:56] LABS: Appearance Urine Clear; Color Urine Yellow; Glucose Urine UA Negative (Negative); Leukocyte Esterase Urine Moderate (2+) (Negative); Nitrite Urine Negative (Negative); PH 7.5 (5.0-9.0); UMIC TRIGGER UACC YES; Urine Blood Negative (Negative); Urine Ketones Negative (Negative); Urine Protein Negative (Neg-Trace)
--- NOTE | 2022-06-13 12:58 | PC.NURSE ---
run of afib noted on monitor after exertion to restroom, repeat EKG done by tech.
[2022-06-13 13:05] LABS: Bacteria Urine None Seen (None Seen); Hyaline Casts Urine 0-2 /LPF (0-2); RBC Urine 0-2 /HPF (0-2); Squamous Epithelial Cell Urine 0-2 /HPF (0-2); WBC Urine 0-5 /HPF (0-5)
[2022-06-13 13:36] VITALS: BP 144/54; PULSE 60; O2SAT 98
--- NOTE | 2022-06-13 14:30 | MHC.CM.ED ---
Received case management consult from Sugey PARMAR. Patient was discharged from [facility] on 06/12 after being hospitalized for pneumonia and Afib. Patient had a cardioversion at that time. Patient came tot ER due to leg pain and weakness. Work up essentially negative. Patient was found to be in Afib again today. Physical therapy eval completed. Home services are recommended. Met with patient and sig other, Ed, in regards to discharge planning. Patient lives with Ed, ambulates independently and had no services prior to coming to the hospital. PCP verified. Copy of HCP verified to be on file. Patient received 4 Pfizer vaccines and 1 Moderna vaccine. Patient and Ed agreeable to discharge home with care home and physical therapy. Both aware referral will have to be broadcasted to see which agency will be able to accept patient. Patient and Ed have a couple of questions for the provider. Sugey PARMAR aware of discharge plan and will meet with patient and sig other again. Continue to monitor for d/c needs.
[2022-06-13 15:10] VITALS: BP 133/54; PULSE 65; RESP 12; TEMP 36.9; O2SAT 95
--- NOTE | 2022-06-18 11:25 | MHC.CM.ED ---
Patient was d/c'd from the ER on 06/13. VNA has not been able to be established at this time. T/W spoke wtih Dr Teran's office in order to have their office facilitate retirement and physical therapy via a VNA agency.
== END 2022-06-13 15:22 | disposition home or self-care (01) ==
PROVIDERS: Physician Assistant; Emergency Provider Student in an Organized Health Care Education/Training Program; PCP Internal Medicine
DX: R53.81 Other malaise (principal); R60.0 Localized edema; Z20.822 Contact with and (suspected) exposure to COVID-19; I48.91 Unspecified atrial fibrillation; I10 Essential (primary) hypertension; E78.00 Pure hypercholesterolemia, unspecified; Z87.01 Personal history of pneumonia (recurrent); Z79.899 Other long term (current) drug therapy; Z79.02 Long term (current) use of antithrombotics/antiplatelets; Z79.01 Long term (current) use of anticoagulants
CPT/HCPCS: 36415; 80048; 80076; 81001; 83735; 83880; 85025; 87635; 93005; 97162; 99284

== ENCOUNTER 2022-06-24 08:52 | Inpatient (IN) | payer BC, SELFPAY ==
[2022-06-24] VITALS (14 sets, daily range): BP systolic 105–125; BP diastolic 46–69; PULSE 68–131; RESP 18–23; TEMP 35.9–37.3; O2SAT 92–98; BMI 25.8; BMI 27.3
--- NOTE | ~2022-06-24 | XR_ITS ---
EXAMINATION: XR CHEST CLINICAL INFORMATION: Leukocytosis COMPARISON: 06/08/2022 TECHNIQUE: Frontal view of the chest was obtained. FINDINGS: Cardiac leads overlie the chest. Lung volumes are low. Increased small right-sided pleural effusion with airspace opacity at the right base. No edema. No pneumothorax. The cardiomediastinal silhouette is unchanged. XR/XR chest 1V IMPRESSION: Increased small right-sided pleural effusion with airspace opacity which could represent atelectasis or pneumonia.
--- NOTE | 2022-06-24 09:07 | ECG_ITS ---
Test Reason : AFIB WITH AVR Blood Pressure : / mmHG Vent. Rate : 121 BPM Atrial Rate : 000 BPM P-R Int : 000 ms QRS Dur : 100 ms QT Int : 314 ms P-R-T Axes : 000 032 193 degrees QTc Int : 445 ms Atrial fibrillation with rapid ventricular response Minimal voltage criteria for LVH, may be normal variant ( Sokolow-Gtz ) Septal infarct , age undetermined Lateral ST changes - consider ischemia Abnormal ECG When compared with ECG of 13-JUN-2022 12:52, Afib present Lateral ST changes Referred By: Eric Matthews Electronically Signed By:Mike Marshall
[2022-06-24 09:25] LABS: MANUAL DIFF FLAG NO
--- NOTE | 2022-06-24 09:30 | PC.NURSE ---
Patient presenting today after having a dark tarry stool this morning. Patient states that this has happened in the past and that she needed a blood transfusion during that admission. Patient also noted to have a high heart rate during triage, patient placed on monitor and noted to be in an Afib rhythm. Patient denying pain at this time.
[2022-06-24 09:31] LABS: Basophils Absolute Auto 0.1 X10*3/uL (0.0-0.2); Basophils Percent Auto 0.7 % (0-2); Eosinophils Absolute Auto 0.1 X10*3/uL (0.0-0.4); Eosinophils Percent Auto 0.7 % (0-4); Hematocrit 21.2 % (37.0-47.0); Imm Gran Pct Auto 1.1 % (0.0-0.4); Lymphocytes Absolute Auto 3.2 X10*3/uL (1.2-4.9); Lymphocytes Percent Auto 16.7 % (20-40); Mean Corpuscular HGB Conc 31.1 g/dl (31.0-35.0); Mean Corpuscular Hemoglobin 28.4 pg (27.0-33.0); Mean Corpuscular Volume 91.4 fL (80.0-98.0); Mean Platelet Volume 10.2 fL (9.4-12.3); Monocytes Absolute Auto 0.9 X10*3/uL (0.1-1.2); Monocytes Percent Auto 4.8 % (2-11); NRBC Pct Auto 0.1 /100WBC (0.0-0.2); Neutrophils Absolute Auto 14.4 x10*3/uL (2.0-8.3); Platelet Count 316 X10*3/uL (160-400); Red Blood Count 2.32 X10*6/uL (4.20-5.50); White Blood Count 18.9 X10*3/uL (4.8-10.8)
[2022-06-24 09:35] LABS: Hemoglobin 6.6 g/dl (12.0-16.0)
[2022-06-24] MEDS: Pantoprazole Sodium 40 MG/10 ML VIAL 80 MG IVPUSH (09:45)
[2022-06-24] MEDS: 0.9 % Sodium Chloride 1,000 ML 999 ML IV (09:46)
[2022-06-24 09:47] LABS: Anion Gap 15 (12-20); Blood Urea Nitrogen 22 mg/dL (9-16); Calcium 8.5 mg/dL (8.4-10.2); Carbon Dioxide 20 mmol/L (22-29); Chloride 106 mmol/L (96-108); Creatinine Clr Calc Pharmacy 54.3; Estimated Glomerular Filt Rate > 60; Glucose Random 208 mg/dL (60-115); Potassium 3.9 mmol/L (3.3-5.1); Sodium 137 mmol/L (135-145)
[2022-06-24 09:56] LABS: Troponin-I High Sensitivity 11.9 ng/L (<3.5-17.0)
--- NOTE | 2022-06-24 10:04 | ED.GIBLEED ---
HPI - GI Bleed General Chief complaint: GI Bleed Stated complaint: quest internal bleeding Time Seen by Provider: 06/24/22 09:18 Source: patient Mode of arrival: ambulatory Limitations: no limitations History of Present Illness HPI Narrative: 77-year-old female on blood thinning medications for atrial fibrillation presents with dark black stool. Patient had 1 episodes of dark black stool. She denies any pain. She has no lightheadedness, palpitations, shortness of breath. She is anxious and concerned that she might have a GI bleed. She is on iron therapy. She has not been using Pepto-Bismol. Patient describes her symptoms as moderate to severe. There is no clear relieving or exacerbating features. There is no radiation of symptoms. Related Data Home Medications Medication Instructions Recorded Confirmed omeprazole 40 mg capsule,delayed 40 mg PO DAILY@0630 08/10/21 06/24/22 release atorvastatin 10 mg tablet 10 mg PO BEDTIME 06/05/22 06/24/22 amiodarone 200 mg tablet 200 mg PO BID 06/13/22 06/24/22 ferrous sulfate 325 mg (65 mg 325 mg PO BID 06/24/22 06/24/22 iron) tablet Previous Rx's Medication Instructions Recorded cholecalciferol (vitamin D3) 25 25 mcg PO DAILY 90 days #90 caps 09/22/20 mcg (1,000 unit) capsule cyanocobalamin (vitamin B-12) 1,000 mcg PO DAILY 90 days #90 tabs 09/22/20 1,000 mcg tablet (Vitamin B-12) raloxifene 60 mg tablet 60 mg PO DAILY 90 days #90 tabs 09/04/21 apixaban 5 mg tablet (Eliquis) 5 mg PO BID #60 tabs 06/12/22 diltiazem HCl 240 mg 240 mg PO DAILY #30 caps 06/12/22 capsule,extended release 24 hr Allergies Allergy/AdvReac Type Severity Reaction Status Date / Time enflurane [ENFLURANE] Allergy Severe Per Verified 06/24/22 08:55 Patient Liver toxicity piperacillin [Zosyn] Allergy Severe Rash Verified 06/24/22 08:55 tazobactam [Zosyn] Allergy Severe Rash Verified 06/24/22 08:55 PMFSH Past Medical History Medical History Afib Anemia Anemia Atrial fibrillation with RVR Sevilla's esophagus Benign essential hypertension Cardiac murmur Gastric ulcer Hiatal hernia History of blood transfusion Hypertrophic cardiomyopathy Osteopenia Overweight (BMI 25.0-29.9) Primary osteoarthritis of hand Pure hypercholesterolemia Vitamin B12 deficiency Vitamin D deficiency Surgical History History of appendectomy History of esophagogastroduodenoscopy (EGD) History of hysterectomy Family History Family History Father Hypertension Mother Stroke Social History Social History Household Members: Spouse Housing: House Do you presently have visiting nurse or other home services: No Alcohol intake: former Patient Tobacco Use Status: Never used Tobacco e-Cigarette/Vaping Use: Never Used Second Hand Smoke Exposure: No Advance Directives: Yes Advance Directives on File: Yes Advance Directives Date on File: 01/22/21 service: No Current occupational status: retired Cognitive needs: No Hearing needs: No Vision needs: Yes (glasses) Physical Exam Vital Signs: Vital Signs: Last Vital Signs Temp 98 F 06/24/22 08:55 Pulse 131 H 06/24/22 08:55 Resp 19 06/24/22 08:55 BP 114/60 06/24/22 08:55 Pulse Ox 98 06/24/22 08:55 O2 Del Method Room Air 06/24/22 08:55 BMI result Body Mass Index 25.8 GEN: Well developed, no acute distress, alert, oriented HEENT: Normocephalic, atraumatic, normal external ears, nose appears normal, no oropharyngeal edema or exudates Eyes: Normal to appearance Neck: Supple, no lymphadenopathy Respiratory: Talks in complete sentences, no respiratory distress, clear to auscultation bilaterally Cardiovascular: Irregularly irregular, tachycardic, no murmurs rubs or gallops Abdomen: Soft, nontender, nondistended, no guarding, no rebound Back: No CVA tenderness Extremities: No clubbing cyanosis or edema Neurologic: No focal neurologic deficits, cranial nerves 2-12 intact, strength is 5/5 bilaterally, gait normal Skin: No rash Rectal: Guaiac-positive dark brown stool Course Course Course Narrative: 77-year-old female presents with concerns for an upper GI bleed. She did have guaiac-positive stools. There are dark brown. This is concerning for an upper GI bleed. She does have history of this in the past. She is on blood thinning medications. Other than being tachycardic, patient is asymptomatic and her exam was unremarkable. Assuming she does have an upper GI bleed and if there is a drop in her hemoglobin, would recommend transfusion given her elevated heart rate and hospitalization. Reevaluation(s) Reevaluation #1: Discussed all results with the patient. Reevaluation #2: patient consented for transfusion. TigerText to GI, will contact hospitalist. Time: 10:19 Medications Administered Generic Name Dose Route Start Last Admin Trade Name Freq PRN Reason Stop Dose Admin Sodium Chloride 1,000 mls @ 999 mls/hr 06/24/22 09:45 06/24/22 09:46 Ns IV 06/24/22 10:45 999 mls/hr .[id number] SERGEY Administration Discontinued Medications Generic Name Dose Route Start Last Admin Trade Name Freq PRN Reason Stop Dose Admin Pantoprazole Sodium 80 mg 06/24/22 09:32 06/24/22 09:45 Pantoprazole Sodium 40 Mg/10 Ml Vial IVPUSH 06/24/22 09:33 80 mg ONCE ONE Administration Medical Decision Making Medical Decision Making [facility] Narrative: 77-year-old female presents with dark black stool. Patient was guaiac positive. It is likely upper GI bleed. Will order CBC, type and screen, chemistry. She is tachycardic with an irregular rhythm, likely AFib with rapid ventricular response, will get EKG to further evaluate. Differential Diagnosis Differential Diagnoses: The differential diagnosis associated with the presentation includes (Upper GI bleed, lower GI bleed, iron supplementation, atrial fibrillation) Admission/Observation Consideration of admission/observation: Escalation of care including admission/observation considered Consult Healthcare Provider Management of the patient was discussed with: Hospitalist and Computer Network And Systems Engineer (GI) Lab Data [facility] Lab Attestation statement: I reviewed the patient's lab results. 06/24/22 09:20 06/24/22 09:20 Labs: Lab Results 06/24/22 06/24/22 06/24/22 Range/Units 09:20 09:20 09:20 WBC 18.9 H (4.8-10.8) X10*3/uL RBC 2.32 L D (4.20-5.50) X10*6/uL Hgb 6.6 L* D (12.0-16.0) g/dl Hct 21.2 L D (37.0-47.0) % MCV 91.4 (80.0-98.0) fL MCH 28.4 (27.0-33.0) pg MCHC 31.1 (31.0-35.0) g/dl RDW 15.0 (11.0-16.0) % Plt Count 316 (160-400) X10*3/uL MPV 10.2 (9.4-12.3) fL Immature Gran % (Auto) 1.1 H (0.0-0.4) % Neut % (Auto) 76.0 H (45-73) % Lymph % (Auto) 16.7 L (20-40) % Vernon % (Auto) 4.8 (2-11) % Eos % (Auto) 0.7 (0-4) % Baso % (Auto) 0.7 (0-2) % Lymph # (Auto) 3.2 (1.2-4.9) X10*3/uL Vernon # (Auto) 0.9 (0.1-1.2) X10*3/uL Eos # (Auto) 0.1 (0.0-0.4) X10*3/uL Baso # (Auto) 0.1 (0.0-0.2) X10*3/uL Abs Immat Gran (auto) 0.20 H (0.00-0.03) X10*3/uL Absolute Neuts (auto) 14.4 H (2.0-8.3) x10*3/uL Absolute Nucleated RBC 0.020 H (0.0-0.012) X10*3/uL Nucleated RBC % (auto) 0.1 (0.0-0.2) /100WBC PT (10.0-13.1) SEC INR (0.9-1.1) Sodium 137 (135-145) mmol/L Potassium 3.9 (3.3-5.1) mmol/L Chloride 106 (96-108) mmol/L Carbon Dioxide 20 L (22-29) mmol/L Anion Gap 15 (12-20) BUN 22 H (9-16) mg/dL Creatinine 0.87 (0.5-1.4) mg/dL Estim Creat Clear Calc 54.3 Estimated GFR > 60 Random Glucose 208 H (60-115) mg/dL Calcium 8.5 D (8.4-10.2) mg/dL Troponin I High Sens 11.9 D (<3.5-17.0) ng/L 06/24/22 Range/Units 09:20 WBC (4.8-10.8) X10*3/uL RBC (4.20-5.50) X10*6/uL Hgb (12.0-16.0) g/dl Hct (37.0-47.0) % MCV (80.0-98.0) fL MCH (27.0-33.0) pg MCHC (31.0-35.0) g/dl RDW (11.0-16.0) % Plt Count (160-400) X10*3/uL MPV (9.4-12.3) fL Immature Gran % (Auto) (0.0-0.4) % Neut % (Auto) (45-73) % Lymph % (Auto) (20-40) % Vernon % (Auto) (2-11) % Eos % (Auto) (0-4) % Baso % (Auto) (0-2) % Lymph # (Auto) (1.2-4.9) X10*3/uL Vernon # (Auto) (0.1-1.2) X10*3/uL Eos # (Auto) (0.0-0.4) X10*3/uL Baso # (Auto) (0.0-0.2) X10*3/uL Abs Immat Gran (auto) (0.00-0.03) X10*3/uL Absolute Neuts (auto) (2.0-8.3) x10*3/uL Absolute Nucleated RBC (0.0-0.012) X10*3/uL Nucleated RBC % (auto) (0.0-0.2) /100WBC PT 16.8 H (10.0-13.1) SEC INR 1.4 H (0.9-1.1) Sodium (135-145) mmol/L Potassium (3.3-5.1) mmol/L Chloride (96-108) mmol/L Carbon Dioxide (22-29) mmol/L Anion Gap (12-20) BUN (9-16) mg/dL Creatinine (0.5-1.4) mg/dL Estim Creat Clear Calc Estimated GFR Random Glucose (60-115) mg/dL Calcium (8.4-10.2) mg/dL Troponin I High Sens (<3.5-17.0) ng/L Independent Interpretation I performed an independent interpretation of an: EKG (Atrial fibrillation with rapid ventricular response heart rate 121, rate related ST T-wave changes) Independent Historian Clinical information obtained from an independent historian. History obtained from or confirmed by: Spouse External Record Review External record reviewed: Inpatient record Tests considered The following testing was considered but not selected: CT scan Prescription Management I considered prescription management with: Other (Blood products) Chronic Conditions Patient?s care impacted by: Hypertension Critical Care Time Critical Care Time Critical Care Time: Yes Total Critical Care Time: 35 Attestation: Critical care time the amount of approximately 35 minutes including bedside care, documentation, contacting specialists, contacting hospitalist, interpretation of data outside of any procedures Discharge Plan Discharge Clinical Impression: Acute gastrointestinal bleeding, Atrial fibrillation with RVR, Acute blood loss anemia Patient Disposition: Admitted As Inpatient
[2022-06-24 10:07] LABS: INTERNATIONAL NORM RATIO 1.4 (0.9-1.1); Prothrombin Time 16.8 SEC (10.0-13.1)
--- NOTE | 2022-06-24 10:07 | PHA.MEDREC ---
Pharmacy Consult ? Medication Reconciliation Pharmacy has completed the medication reconciliation. Patient confirmed all mediction. Had discharge summary for last admission. Confirmed she stopped taking Elqiuis and has adjusted the dose of amiodarone as discharge summary stated. Patient did not take Elqiuis this morning due to dark stool. Rosenda Sanchez, PharmD
[2022-06-24 10:28] LABS: COVID-19 Test Negative (Negative); IDNOW Serial# 08D9AD1C
--- NOTE | 2022-06-24 11:26 | MHC.EDTECH ---
i pct took patients bp twice and both times results were low RN notified
--- NOTE | 2022-06-24 11:36 | P.HPHOSP_ITS ---
History of Present Illness Date of Service: 06/24/22 <AGATA Cronin - Last Filed: 06/24/22 12:20> Attending physician on admission: Josiah Edmondson <AGATA Cronin - Last Filed: 06/24/22 12:20> Chief Complaint: melena <AGATA Cronin - Last Filed: 06/24/22 12:20> 77-year-old female with atrial fibrillation anticoagulated with eliquis recently diagnosed during admission from 06/05- for pneumonia, history Sevilla's esophagus, hypertension, history of bleeding gastric ulcer and AVMs requiring multiple blood transfusions in 02/11 and 11/12, osteopenia, hypercholesterolemia, vitamin B12 deficiency, and vitamin-D deficiency presented to the ED for evaluation of melena with her , Ed. Reports a single episode of melena. No associated abd pain, nausea, vomiting, diarrhea, hemetemasis, or hematochezia. Has had constipation. Reports persistent generalized weakness and deconditioning since last admission. Has felt fatigued and reports palpitations. No fevers, chills, sob, padilla, lightheadedness, or chest pain. On arrival, pt in AFib with RVR, rate 131, improved to 105 with IVF. BP stable. Persistent leukocytosis of 18.9 (was 15.5 on 06/12), without left shift. H/H 6.6/21.2%. PT 16.8, INR 1.4. Renal function baseline, lytes normal. Trop WNL. EKG showing Afib rvr, rate 121no SUMAN or ST depressions. In the ED, given 80mg IV pantoprazole, ordered for 1 unit blood, and 10mg vitamin k. <AGATA Cronin - Last Filed: 06/24/22 12:20> Review of Systems Review of Systems: General: No fevers, malaise, unintentional weight loss. +fatigue HEENT: No blurred vision, diplopia. No sore throat, nasal congestion, rhinorrhea, sinus pain, ear pain Cardiovascular: No chest pain, palpitations, or leg edema Respiratory: No shortness of breath, wheezing, cough GI: +melena. No abdominal pain, nausea, vomiting, diarrhea, constipation, hematochezia : No dysuria, hematuria, increased urinary frequency, decreased urinary output MSK: No myalgia, back pain Neuro: No headaches, weakness, paresthesias Skin: No rashes or lesions <AGATA Cronin - Last Filed: 06/24/22 12:20> [facility] Medical History: Medical History Afib Anemia Anemia Atrial fibrillation with RVR Sevilla's esophagus Benign essential hypertension Cardiac murmur Gastric ulcer Hiatal hernia History of blood transfusion Hypertrophic cardiomyopathy Osteopenia Overweight (BMI 25.0-29.9) Primary osteoarthritis of hand Pure hypercholesterolemia Vitamin B12 deficiency Vitamin D deficiency <AGATA Cronin - Last Filed: 06/24/22 12:20> Family History: Family History Father Hypertension Mother Stroke <AGATA Cronin - Last Filed: 06/24/22 12:20> Surgical History: Surgical History History of appendectomy History of esophagogastroduodenoscopy (EGD) History of hysterectomy <AGATA Cronin - Last Filed: 06/24/22 12:20> Social History: Social History Household Members: Spouse Housing: House Do you presently have visiting nurse or other home services: No Alcohol intake: never Patient Tobacco Use Status: Never used Tobacco Smoked in Last 30 Days: No e-Cigarette/Vaping Use: Never Used Second Hand Smoke Exposure: No Use of substances other than those prescribed or required for medical reasons: No Advance Directives: Yes Advance Directives on File: Yes Advance Directives Date on File: 01/22/21 service: No Current occupational status: retired Cognitive needs: No Hearing needs: No Vision needs: Yes (glasses) <AGATA Cronin - Last Filed: 06/24/22 12:20> Meds Allergies/Adverse reactions: Allergies Allergy/AdvReac Type Severity Reaction Status Date / Time enflurane [ENFLURANE] Allergy Severe Per Verified 06/24/22 08:55 Patient Liver toxicity piperacillin [Zosyn] Allergy Severe Rash Verified 06/24/22 08:55 tazobactam [Zosyn] Allergy Severe Rash Verified 06/24/22 08:55 <AGATA Cronin - Last Filed: 06/24/22 12:20> Active Medications: Current Medications Acetaminophen (Acetaminophen 325 Mg Tablet) 650 mg PO Q6H PRN PRN Reason: Pain, Mild (Pain Scale 1-3) Amiodarone HCl (Amiodarone Hcl 200 Mg Tablet) 200 mg PO BID [facility] Atorvastatin Calcium (Atorvastatin Calcium 10 Mg Tablet) 10 mg PO BEDTIME [facility] Cyanocobalamin (Cyanocobalamin (Vitamin B-12) 1,000 Mcg Tablet) 1,000 mcg PO DAILY [facility] Diltiazem HCl (Diltiazem Hcl Cd 240 Mg Cap.Er.Deg) 240 mg PO DAILY [facility]; Protocol Docusate Sodium (Docusate Sodium 100 Mg Capsule) 100 mg PO DAILY PRN PRN Reason: Constipation Non-Formulary Medication (Raloxifene) 60 mg PO DAILY [facility] Non-Formulary Medication (Ferrous Sulfate) 325 mg PO BID [facility] Ondansetron HCl (Ondansetron Hcl 4 Mg/2 Ml Vial) 4 mg IVPUSH Q8H PRN PRN Reason: Nausea and Vomiting Pantoprazole Sodium (Pantoprazole Sodium 40 Mg/10 Ml Vial) 40 mg IVPUSH BID@0630,1630 [facility] Pharmacy Consult (Consult Rx Perform Med Rec) 1 each MISCELLANE ONCE PRN PRN Reason: Consult order Sodium Chloride (0.9 % Sodium Chloride Flush 3 Ml Syringe) 3 ml IVFLUSH QSHIFT [facility] Sucralfate (Sucralfate 1 Gm Tablet) 1 gm PO QIDACHS [facility] Vitamin D (Cholecalciferol (Vitamin D3) 25 Mcg Tablet) 25 mcg PO DAILY [facility] <AGATA Cronin - Last Filed: 06/24/22 12:20> Home medications: Home Medications Medication Instructions Recorded Confirmed Last Taken Type omeprazole 40 mg capsule,delayed 40 mg PO DAILY@0630 08/10/21 06/24/22 06/24/22 History release atorvastatin 10 mg tablet 10 mg PO BEDTIME 06/05/22 06/24/22 06/23/22 History amiodarone 200 mg tablet 200 mg PO BID 06/13/22 06/24/22 06/24/22 History ferrous sulfate 325 mg (65 mg 325 mg PO BID 06/24/22 06/24/22 06/24/22 History iron) tablet <AGATA Cronin - Last Filed: 06/24/22 12:20> Physical Exam Vital Signs and Narrative: Vital Signs: Last Vital Signs Temp 98.1 F 06/24/22 11:23 Pulse 105 H 06/24/22 11:23 Resp 23 H 06/24/22 11:23 BP 113/46 L 06/24/22 11:23 Pulse Ox 94 06/24/22 11:23 O2 Del Method Room Air 06/24/22 11:23 BMI result Body Mass Index 25.8 <AGATA Cronin - Last Filed: 06/24/22 12:20> Constitutional - Awake and Alert, No apparent distress Eyes - PERRLA, EOMI Cardiovascular - S1S2, RRR, No edema Respiratory - Normal lung expansion, Normal respiratory effort, No respiratory distress, diminished lung sounds RLL Gastrointestinal - NT / ND; +BS; No rebound or guarding Extremities - no calf tenderness bilaterally, no swelling Skin - Warm/Dry Neurological - Alert & oriented x3, 5/5 strength BUE and BLE Psychological - Appropriate affect <AGATA Cronin - Last Filed: 06/24/22 12:20> Results Labs CBC and Chem 7: 06/24/22 09:20 06/24/22 09:20 <AGATA Cronin - Last Filed: 06/24/22 12:20> Labs: Laboratory Results - last 24 hr 06/24/22 06/24/22 06/24/22 09:20 09:20 09:20 MCV 91.4 MCH 28.4 MCHC 31.1 RDW 15.0 Plt Count 316 MPV 10.2 Immature Gran % (Auto) 1.1 H Neut % (Auto) 76.0 H Lymph % (Auto) 16.7 L [place] % (Auto) 4.8 Eos % (Auto) 0.7 Baso % (Auto) 0.7 Lymph # (Auto) 3.2 [place] # (Auto) 0.9 Eos # (Auto) 0.1 Baso # (Auto) 0.1 Abs Immat Gran (auto) 0.20 H Absolute Neuts (auto) 14.4 H Absolute Nucleated RBC 0.020 H Nucleated RBC % (auto) 0.1 Smear Path Review SEE NOTE PT INR Whole Blood INR Anion Gap 15 Estim Creat Clear Calc 54.3 Estimated GFR > 60 Random Glucose 208 H Calcium 8.5 D Troponin I High Sens 11.9 D COVID-19 ([facility]) COVID-19 Clin Com Blood Type Antibody Screen Crossmatch 06/24/22 06/24/22 06/24/22 09:20 09:20 09:53 MCV MCH MCHC RDW Plt Count MPV Immature Gran % (Auto) Neut % (Auto) Lymph % (Auto) [place] % (Auto) Eos % (Auto) Baso % (Auto) Lymph # (Auto) [place] # (Auto) Eos # (Auto) Baso # (Auto) Abs Immat Gran (auto) Absolute Neuts (auto) Absolute Nucleated RBC Nucleated RBC % (auto) Smear Path Review PT 16.8 H INR 1.4 H Whole Blood INR Cancelled Anion Gap Estim Creat Clear Calc Estimated GFR Random Glucose Calcium Troponin I High Sens COVID-19 ([facility]) Negative COVID-19 Clin Com See Note Blood Type Antibody Screen Crossmatch 06/24/22 10:26 MCV MCH MCHC RDW Plt Count MPV Immature Gran % (Auto) Neut % (Auto) Lymph % (Auto) [place] % (Auto) Eos % (Auto) Baso % (Auto) Lymph # (Auto) [place] # (Auto) Eos # (Auto) Baso # (Auto) Abs Immat Gran (auto) Absolute Neuts (auto) Absolute Nucleated RBC Nucleated RBC % (auto) Smear Path Review PT INR Whole Blood INR Anion Gap Estim Creat Clear Calc Estimated GFR Random Glucose Calcium Troponin I High Sens COVID-19 ([facility]) COVID-19 Clin Com Blood Type A Positive Antibody Screen NEGATIVE Crossmatch See Detail <AGATA Cronin - Last Filed: 06/24/22 12:20> Assessment and Plan (1) Acute gastrointestinal bleeding: Status: Acute <AGATA Cronin - Last Filed: 06/24/22 12:20> (2) Atrial fibrillation with RVR: Status: Acute <AGATA Cronin - Last Filed: 06/24/22 12:20> 77-year-old female with atrial fibrillation anticoagulated with eliquis recently diagnosed during admission from 06/05- with cardioversion 06/11, history Sevilla's esophagus, hypertension, history of bleeding gastric ulcer and AVMs requiring multiple blood transfusions in 02/11 and 11/12, osteopenia, hypercholesterolemia, vitamin B12 deficiency, and vitamin-D deficiency admitted for suspected upper GI bleed and Afib with RVR. #Upper GI bleed with acute blood loss anemia -Has hx UGIB with gastric ulcer and AVM -H/H 6.6/21.2% (06/13 H/H 9.9/31.1%) -Transfuse 2 units -PT 16.8, INR 1.4. 10mg Vitamin K per -Plan for EGD later today pending cardiology consult per GI. Keep NPO -IV PPI 40mg BID, carafate QIDACHS, ferrous sulfate -Hold eliquis -Follow CBC -Admit to telemetry -Appreciate GI input #AFib with RVR -Rate on arrival 131. Improved to 95-105 on my exam with IVF -Adm 06/05- with new onset AFib RVR with cardioversion on 06/11. Discharged on Multaq changed to amiodorone due to insurance issues -Echo 06/11 showing normal LV systolic function with asymmetric septal hypertrophy with flow pattern consistent with obstructive physiology, moderate mitral regurg, mild-moderate aortic atherosclerosis -Continue amiodorone and diliazem -Hold eliquis as above -Apprciate cardiology input -Monitor on telemetry #Leukocytosis -Tachycardia related to AFib, low suspicion for sepsis at this time -Persistent since admit 06/05 for RLL pneumonia. Improved to 15.5 on d/c. Now 18.9 -Treated with IV methylprednisolone and completed course of IV cefepime and vancomycin last admission, last dose steroids 06/10 -CXR and UA pending. Blood cultures ordered -Follow CBC #Chronic iron deficiency anemia -with acute blood loss anemia as above -Continue ferrous sulfate. Consider adding vitamin C for better absorption if no gastic ulcer on scope #Physical deconditioning -since last admission -Pt eval #HLD -continue statin DVT prophylaxis- SCPs DNR/DNI Pt requires inpt stay at least 2 midnights for management of UGIB requiring blood transfusion and surgical investigation as well as close monitoring of blood counts and cardiac monitoring with AFiB RVR. <AGATA Cronin - Last Filed: 06/24/22 12:20> 77-year-old female with atrial fibrillation anticoagulated with eliquis recently diagnosed during admission from 06/05- with cardioversion 06/11, history Sevilla's esophagus, hypertension, history of bleeding gastric ulcer and AVMs requiring multiple blood transfusions in 02/11 and 11/12, osteopenia, hypercholesterolemia, vitamin B12 deficiency, and vitamin-D deficiency admitted for suspected upper GI bleed and Afib with RVR. #Upper GI bleed with acute blood loss anemia -Has hx UGIB with gastric ulcer and AVM -H/H 6.6/21.2% (06/13 H/H 9.9/31.1%) -Transfuse 2 units -PT 16.8, INR 1.4. 10mg Vitamin K per -Plan for EGD later today pending cardiology consult per GI. Keep NPO -IV PPI 40mg BID, carafate QIDACHS, ferrous sulfate -Hold eliquis -Follow CBC -Admit to telemetry -Appreciate GI input #AFib with RVR -Rate on arrival 131. Improved to 95-105 on my exam with IVF -Adm 06/05- with new onset AFib RVR with cardioversion on 06/11. Discharged on Multaq changed to amiodorone due to insurance issues -Echo 06/11 showing normal LV systolic function with asymmetric septal hypertrophy with flow pattern consistent with obstructive physiology, moderate mitral regurg, mild-moderate aortic atherosclerosis -Continue amiodorone and diliazem -Hold eliquis as above -Apprciate cardiology input -Monitor on telemetry #Leukocytosis -Tachycardia related to AFib, low suspicion for sepsis at this time -Persistent since admit 06/05 for RLL pneumonia. Improved to 15.5 on d/c. Now 18.9 -Treated with IV methylprednisolone and completed course of IV cefepime and vancomycin last admission, last dose steroids 06/10 -CXR and UA pending. Blood cultures ordered -Follow CBC #Chronic iron deficiency anemia -with acute blood loss anemia as above -Continue ferrous sulfate. Consider adding vitamin C for better absorption if no gastic ulcer on scope #Physical deconditioning -since last admission -Pt eval #HLD -continue statin DVT prophylaxis- SCPs DNR/DNI Pt requires inpt stay at least 2 midnights for management of UGIB requiring blood transfusion and surgical investigation as well as close monitoring of blood counts and cardiac monitoring with AFiB RVR. Addendum to history and physical by the advanced practice provider, AGATA Christianson I interviewed and examined the patient. I discussed their presentation and management with the MANJEET. I reviewed the history and physical and agree with the documentation, with the following additions and corrections: 77yo F with AF on apixaban, hx Sevilla esophagus, hx bleeding gastric ulcer + AVMs requiring transfusions, B12 deficiency Presenting with 1 episode of melena, found to be in AF/RVR, rate 131 now 105 after fluid resuscitation. Profoundly anemic with Hb 6.6, MCV 91. Plan admit to [facility], transfuse 2u pRBCs, NPO for EGD, Cardiology consultation, vitamin K, hold apixaban, continue diltiazem + amiodarone. Peristent leukocytosis suspect due to recent PNA + steroid use. <Josiah Edmondson MD - Last Filed: 06/24/22 12:56> Time Spent With Patient Time: Total time managing care of this patient today ____ minutes. <AGATA Cronin - Last Filed: 06/24/22 12:20> Quality Stroke Does the patient have a stroke diagnosis?: No <AGATA Cronin - Last Filed: 06/24/22 12:20> VTE Prior VTE?: No <AGATA Cronin - Last Filed: 06/24/22 12:20> VTE Risk Level:: Medical - moderate - high <AGATA Cronin - Last Filed: 06/24/22 12:20> VTE Device Contraindication: N/A - Device Ordered <AGATA Cronin - Last Filed: 06/24/22 12:20> VTE Drug Contraindication: Treatment Not Indicated <AGATA Cronin - Last Filed: 06/24/22 12:20>
--- NOTE | 2022-06-24 12:53 | MHC.CM.PN ---
Patient lives in a house with her Partner/HCP/Edward and she required no services nor DME [employer]. Home/self care is the goal and CM has initiated and will follow for dc planning. Patient has received Covid vax x5 and her PCP is Dr. Colt Teran.
--- NOTE | 2022-06-24 13:18 | P.CONCA_ITS ---
History of Present Illness History of Present Illness Date of Service: 06/24/22 Requesting physician: Gabriela Christianson Chief complaint: afib rvr, ugib Narrative: 77-year-old female who is presenting with upper GI bleed and AFib with RVR. She was seen recently in the hospital and underwent cardioversion. She has background history of hypertrophic cardiomyopathy. She started feeling some palpitations and was also noticing black colored stools and decided to come to the hospital. She was recently started on Eliquis for anticoagulation for atrial fibrillation. She has known history of atrial fibrillation in the past. She is denying any shortness of breath, dizziness or syncope. No previous syncopal episode and she has a diagnosis of hypertrophic obstructive cardiomyopathy. She has been seen by GI. She has not received any blood transfusions yet. [facility] Past Medical History Medical History (Updated 06/24/22 @ 13:21 by Mike Marshall MD) Afib Anemia Anemia Atrial fibrillation with RVR Sevilla's esophagus Benign essential hypertension Cardiac murmur Gastric ulcer Hiatal hernia History of blood transfusion Hypertrophic cardiomyopathy Osteopenia Overweight (BMI 25.0-29.9) Primary osteoarthritis of hand Pure hypercholesterolemia Vitamin B12 deficiency Vitamin D deficiency Family History Family History Father Hypertension Mother Stroke Surgical History Surgical History History of appendectomy History of esophagogastroduodenoscopy (EGD) History of hysterectomy Social History Social History Household Members: Spouse Housing: House Do you presently have visiting nurse or other home services: No Alcohol intake: never Patient Tobacco Use Status: Never used Tobacco Smoked in Last 30 Days: No e-Cigarette/Vaping Use: Never Used Second Hand Smoke Exposure: No Use of substances other than those prescribed or required for medical reasons: No Advance Directives: Yes Advance Directives on File: Yes Advance Directives Date on File: 01/22/21 service: No Current occupational status: retired Cognitive needs: No Hearing needs: No Vision needs: Yes (glasses) Meds Allergies Allergy/AdvReac Type Severity Reaction Status Date / Time enflurane [ENFLURANE] Allergy Severe Per Verified 06/24/22 08:55 Patient Liver toxicity piperacillin [Zosyn] Allergy Severe Rash Verified 06/24/22 08:55 tazobactam [Zosyn] Allergy Severe Rash Verified 06/24/22 08:55 Active Medications: Current Medications Acetaminophen (Acetaminophen 325 Mg Tablet) 650 mg PO Q6H PRN PRN Reason: Pain, Mild (Pain Scale 1-3) Amiodarone HCl (Amiodarone Hcl 200 Mg Tablet) 200 mg PO BID [facility] Atorvastatin Calcium (Atorvastatin Calcium 10 Mg Tablet) 10 mg PO BEDTIME [facility] Cyanocobalamin (Cyanocobalamin (Vitamin B-12) 1,000 Mcg Tablet) 1,000 mcg PO DAILY [facility] Diltiazem HCl (Diltiazem Hcl Cd 240 Mg Cap.Er.Deg) 240 mg PO DAILY [facility]; Protocol Docusate Sodium (Docusate Sodium 100 Mg Capsule) 100 mg PO BID [facility] Ferrous Sulfate (Ferrous Sulfate 324 Mg Tablet.Dr) 324 mg PO BID [facility] Lidocaine (Lidocaine 4 % Patch Adh..Patch) 1 patch TRANSDERMA DAILY [facility]; Protocol Ondansetron HCl (Ondansetron Hcl 4 Mg/2 Ml Vial) 4 mg IVPUSH Q8H PRN PRN Reason: Nausea and Vomiting Pantoprazole Sodium (Pantoprazole Sodium 40 Mg/10 Ml Vial) 40 mg IVPUSH BID@0630,1630 [facility] Pharmacy Consult (Consult Rx Perform Med Rec) 1 each MISCELLANE ONCE PRN PRN Reason: Consult order Sodium Chloride (0.9 % Sodium Chloride Flush 3 Ml Syringe) 3 ml IVFLUSH QSHIFT [facility] Sucralfate (Sucralfate 1 Gm Tablet) 1 gm PO QIDACHS [facility] Vitamin D (Cholecalciferol (Vitamin D3) 25 Mcg Tablet) 25 mcg PO DAILY [facility] Home Medications Medication Instructions Recorded Confirmed Last Taken Type omeprazole 40 mg capsule,delayed 40 mg PO DAILY@0630 08/10/21 06/24/22 06/24/22 History release atorvastatin 10 mg tablet 10 mg PO BEDTIME 06/05/22 06/24/22 06/23/22 History amiodarone 200 mg tablet 200 mg PO BID 06/13/22 06/24/22 06/24/22 History ferrous sulfate 325 mg (65 mg 325 mg PO BID 06/24/22 06/24/22 06/24/22 History iron) tablet Physical Exam Vital Signs: Vital Signs: Last Vital Signs Temp 98.1 F 06/24/22 11:23 Pulse 105 H 06/24/22 11:23 Resp 23 H 06/24/22 11:23 BP 113/46 L 06/24/22 11:23 Pulse Ox 94 06/24/22 11:23 O2 Del Method Room Air 06/24/22 11:23 BMI result Body Mass Index 25.8 GENERAL APPEARANCE: in no acute distress, pleasant. NECK: no carotid bruit, mild jugular venous distention. SKIN: no suspicious lesions, warm and dry. HEART: Systolic murmur all over the precordium, irregular rate and rhythm. LUNGS: clear to auscultation bilaterally. ABDOMEN: soft, nontender. EXTREMITIES: no edema. PERIPHERAL PULSES: equal. NEUROLOGIC: No gross deficits, AAO X 3 Objective Labs and Meds 06/24/22 09:20 06/24/22 09:20 Lab results: Laboratory Results - last 24 hr 06/24/22 06/24/22 06/24/22 09:20 09:20 09:20 WBC 18.9 H RBC 2.32 L D Hgb 6.6 L* D Hct 21.2 L D MCV 91.4 MCH 28.4 MCHC 31.1 RDW 15.0 Plt Count 316 MPV 10.2 Immature Gran % (Auto) 1.1 H Neut % (Auto) 76.0 H Lymph % (Auto) 16.7 L [place] % (Auto) 4.8 Eos % (Auto) 0.7 Baso % (Auto) 0.7 Lymph # (Auto) 3.2 [place] # (Auto) 0.9 Eos # (Auto) 0.1 Baso # (Auto) 0.1 Abs Immat Gran (auto) 0.20 H Absolute Neuts (auto) 14.4 H Absolute Nucleated RBC 0.020 H Nucleated RBC % (auto) 0.1 Smear Path Review SEE NOTE PT INR Whole Blood INR Sodium 137 Potassium 3.9 Chloride 106 Carbon Dioxide 20 L Anion Gap 15 BUN 22 H Creatinine 0.87 Estim Creat Clear Calc 54.3 Estimated GFR > 60 Random Glucose 208 H Calcium 8.5 D Troponin I High Sens 11.9 D COVID-19 ([facility]) COVID-19 Clin Com Blood Type Antibody Screen Crossmatch 06/24/22 06/24/22 06/24/22 09:20 09:20 09:53 WBC RBC Hgb Hct MCV MCH MCHC RDW Plt Count MPV Immature Gran % (Auto) Neut % (Auto) Lymph % (Auto) [place] % (Auto) Eos % (Auto) Baso % (Auto) Lymph # (Auto) [place] # (Auto) Eos # (Auto) Baso # (Auto) Abs Immat Gran (auto) Absolute Neuts (auto) Absolute Nucleated RBC Nucleated RBC % (auto) Smear Path Review PT 16.8 H INR 1.4 H Whole Blood INR Cancelled Sodium Potassium Chloride Carbon Dioxide Anion Gap BUN Creatinine Estim Creat Clear Calc Estimated GFR Random Glucose Calcium Troponin I High Sens COVID-19 ([facility]) Negative COVID-19 Clin Com See Note Blood Type Antibody Screen Crossmatch 06/24/22 10:26 WBC RBC Hgb Hct MCV MCH MCHC RDW Plt Count MPV Immature Gran % (Auto) Neut % (Auto) Lymph % (Auto) [place] % (Auto) Eos % (Auto) Baso % (Auto) Lymph # (Auto) [place] # (Auto) Eos # (Auto) Baso # (Auto) Abs Immat Gran (auto) Absolute Neuts (auto) Absolute Nucleated RBC Nucleated RBC % (auto) Smear Path Review PT INR Whole Blood INR Sodium Potassium Chloride Carbon Dioxide Anion Gap BUN Creatinine Estim Creat Clear Calc Estimated GFR Random Glucose Calcium Troponin I High Sens COVID-19 ([facility]) COVID-19 Clin Com Blood Type A Positive Antibody Screen NEGATIVE Crossmatch See Detail Assessment and Plan (1) Acute gastrointestinal bleeding: Status: Acute (2) Atrial fibrillation with RVR: Status: Acute (3) Hypertrophic cardiomyopathy: Status: Acute Plan 77-year-old female who is presenting for AFib with RVR in setting of GI bleed. She has been taken off the Eliquis at this stage. Heart rates are reasonably controlled. She is on amiodarone from recent cardioversion. She is also on diltiazem. Both should be continued for now. Stop the Eliquis till we have endoscopy performed and we can understand the cause of the bleed. Not in heart failure clinically. Should get blood transfusion at this stage. Think she will be a candidate for Watchman device down the line because she had GI bleed 2 times before and required blood transfusions in the past 2. With addition of Eliquis within a month she came back with bleeding. She has hypertrophic obstructive cardiomyopathy based on previous echocardiography. We did not see clear obstruction but definitely there is high gradient in her LVOT. This makes her sensitive to preload and afterload and dropping pre showed or after load can worsen the obstruction. If she requires any vasopressors I would use your alpha agonist like phenylephrine or use vasopr essin. Volume status is important too and she should get blood transfusions. She is intermediate risk for perioperative complications. Thank you for allowing me to participate in the care of your patient. Please feel free to contact me if you have any questions. Time Spent With Patient Time: Total time managing care of this patient today __30__ minutes. Procedures Date of Service Date of Service: 06/24/22
[2022-06-24] MEDS: Phytonadione (Vit K1) 10 MG in 0.9 % Sodium Chloride 50 ML 51 MG IV (14:03)
[2022-06-24] MEDS: Sucralfate 1 GM TABLET PO ×2 (14:04→20:15)
[2022-06-24] MEDS: Lidocaine 4 % Patch ADH..PATCH 1 PATCH TRANSDERMA (14:04)
--- NOTE | 2022-06-24 14:51 | PC.NURSE ---
Plan was to preop pt in PACU and start first unit of blood pre procedure. When arrived on floor was informed by primary RN that a new Type and Screen was ordered and that patient would need a new blood band. [facility] RN given PACU extension and will call when pt has new blood band
[2022-06-24] MEDS: Furosemide 20 MG/2 ML VIAL IVPUSH (15:02)
[2022-06-24] MEDS: 0.9 % Sodium Chloride Flush 3 ML SYRINGE IVFLUSH ×2 (15:02→20:15)
--- NOTE | 2022-06-24 16:01 | MHC.SHP ---
Pre-Procedural Eval Section A Date of Service: 06/24/22 The patient is an INPATIENT: Yes The History & Physical has been completed within 30 days and I have reviewed it.: Yes Section B Chief Complaint: afib rvr, ugib Allergies: Allergies Allergy/AdvReac Type Severity Reaction Status Date / Time enflurane [ENFLURANE] Allergy Severe Per Verified 06/24/22 08:55 Patient Liver toxicity piperacillin [Zosyn] Allergy Severe Rash Verified 06/24/22 08:55 tazobactam [Zosyn] Allergy Severe Rash Verified 06/24/22 08:55 Plan I have reviewed the history and physical and performed a pertinent physical examination on my patient. No changes have occurred unless specified. Time Spent With Patient Time: Total time managing care of this patient today ____ minutes.
--- NOTE | 2022-06-24 16:03 | PM.EVENT ---
Event Note Date of Service: 06/24/22 Event Note: GI Consult-Full note dictated Imp: Melena and anemia in a 75 yo female started on Eliquis in 05/2022 for new onset A.fib. She has had numerous previous GI studies for anemia and GI bleeding as well. She denies any recent aspirin nor NSAID use. Other than some anorexia and weakness, she denies any other localizing nor specific GI symptoms. Rec: EGD with MAC today. Will need transfusions preprocedure. Full consent obtained from her for this, including risks of bleeding and perforation. Continue PPI for now. Hold Iron for now. F/U labs in AM. If the EGD is nonrevealing she will most likely need another SB video capsule study. D/W patient in detail and she is comfortable with this plan. Thanks. Time Spent With Patient Time: Total time managing care of this patient today ____ minutes.
--- NOTE | 2022-06-24 16:37 | P.CONAN_ITS ---
[facility] Active Problems Active Problems: All Active Problems (Updated 06/24/22 @ 13:21 by Mike Marshall MD) Hypertrophic cardiomyopathy (Acute) Acute gastrointestinal bleeding (Acute) Atrial fibrillation with RVR (Acute) Frequent falls (Acute) Need for assistance due to unsteady gait (Acute) Weakness (Acute) Leukocytosis (Acute) Hearing impairment (Acute) Rectal bleeding (Acute) Hospital discharge follow-up (Acute) Edema of right lower extremity (Acute) Acute blood loss anemia (Acute) Acute GI bleeding (Acute) Vitamin B12 deficiency (Acute) Sevilla's esophagus (Acute) Abnormal finding on EKG (Acute) Vertigo (Acute) Dizziness (Acute) Iron deficiency anemia (Acute) Acute blood loss anemia (Acute) Difficulty sleeping (Acute) Overweight (BMI 25.0-29.9) (Acute) Primary osteoarthritis of hand (Acute) Vitamin D deficiency (Acute) Osteopenia (Acute) Cardiac murmur (Acute) Hiatal hernia (Acute) Benign essential hypertension (Acute) Pure hypercholesterolemia (Acute) Past Medical History Medical History Afib Anemia Anemia Atrial fibrillation with RVR Sevilla's esophagus Benign essential hypertension Cardiac murmur Gastric ulcer Hiatal hernia History of blood transfusion Hypertrophic cardiomyopathy Osteopenia Overweight (BMI 25.0-29.9) Primary osteoarthritis of hand Pure hypercholesterolemia Vitamin B12 deficiency Vitamin D deficiency Family History Family History Father Hypertension Mother Stroke Family history of problems with anesthesia: No Surgical History Surgical History History of appendectomy History of esophagogastroduodenoscopy (EGD) History of hysterectomy History of Problems with Anesthesia: No Social History Social History Household Members: Spouse Housing: House Do you presently have visiting nurse or other home services: No Alcohol intake: never Patient Tobacco Use Status: Never used Tobacco e-Cigarette/Vaping Use: Never Used Second Hand Smoke Exposure: No Advance Directives Date on File: 01/22/21 service: No Current occupational status: retired Cognitive needs: No Hearing needs: No Vision needs: Yes (glasses) Meds Allergies Allergy/AdvReac Type Severity Reaction Status Date / Time enflurane [ENFLURANE] Allergy Severe Per Verified 06/24/22 08:55 Patient Liver toxicity piperacillin [Zosyn] Allergy Severe Rash Verified 06/24/22 08:55 tazobactam [Zosyn] Allergy Severe Rash Verified 06/24/22 08:55 Active Medications: Current Medications Acetaminophen (Acetaminophen 325 Mg Tablet) 650 mg PO Q6H PRN PRN Reason: Pain, Mild (Pain Scale 1-3) Amiodarone HCl (Amiodarone Hcl 200 Mg Tablet) 200 mg PO BID [facility] Atorvastatin Calcium (Atorvastatin Calcium 10 Mg Tablet) 10 mg PO BEDTIME [facility] Cyanocobalamin (Cyanocobalamin (Vitamin B-12) 1,000 Mcg Tablet) 1,000 mcg PO DAILY [facility] Diltiazem HCl (Diltiazem Hcl Cd 240 Mg Cap.Er.Deg) 240 mg PO DAILY [facility]; Protocol Docusate Sodium (Docusate Sodium 100 Mg Capsule) 100 mg PO BID [facility] Lidocaine (Lidocaine 4 % Patch Adh..Patch) 1 patch TRANSDERMA DAILY [facility]; Protocol Last Admin: 06/24/22 14:04 Dose: 1 patch Ondansetron HCl (Ondansetron Hcl 4 Mg/2 Ml Vial) 4 mg IVPUSH Q8H PRN PRN Reason: Nausea and Vomiting Pantoprazole Sodium (Pantoprazole Sodium 40 Mg/10 Ml Vial) 40 mg IVPUSH BID@0630,1630 [facility] Pharmacy Consult (Consult Rx Perform Med Rec) 1 each MISCELLANE ONCE PRN PRN Reason: Consult order Sodium Chloride (0.9 % Sodium Chloride Flush 3 Ml Syringe) 3 ml IVFLUSH QSHIFT [facility] Last Admin: 06/24/22 15:02 Dose: 3 ml Sucralfate (Sucralfate 1 Gm Tablet) 1 gm PO QIDACHS [facility] Last Admin: 06/24/22 14:04 Dose: 1 gm Vitamin D (Cholecalciferol (Vitamin D3) 25 Mcg Tablet) 25 mcg PO DAILY [facility] Home Medications Medication Instructions Recorded Confirmed Last Taken Type omeprazole 40 mg capsule,delayed 40 mg PO DAILY@0630 08/10/21 06/24/22 06/24/22 History release atorvastatin 10 mg tablet 10 mg PO BEDTIME 06/05/22 06/24/22 06/23/22 History amiodarone 200 mg tablet 200 mg PO BID 06/13/22 06/24/22 06/24/22 History ferrous sulfate 325 mg (65 mg 325 mg PO BID 06/24/22 06/24/22 06/24/22 History iron) tablet Exam Exam Date and Time: June 24, 2022 1637 Height,Weight and Vital Signs: Height 5 ft 6 in Weight 72.575 kg Last Vital Signs Temp 99 F 06/24/22 16:05 Pulse 112 H 06/24/22 16:05 Resp 18 06/24/22 16:05 BP 107/63 06/24/22 16:05 Pulse Ox 94 06/24/22 15:59 O2 Del Method Room Air 06/24/22 15:59 Pertinent Lab Results Pertinent Lab Results: Laboratory Tests 06/24/22 06/24/22 06/24/22 09:20 09:20 09:20 WBC 18.9 H RBC 2.32 L D Hgb 6.6 L* D Hct 21.2 L D MCV 91.4 MCH 28.4 MCHC 31.1 RDW 15.0 Plt Count 316 MPV 10.2 Immature Gran % (Auto) 1.1 H Neut % (Auto) 76.0 H Lymph % (Auto) 16.7 L Mower % (Auto) 4.8 Eos % (Auto) 0.7 Baso % (Auto) 0.7 Lymph # (Auto) 3.2 Mower # (Auto) 0.9 Eos # (Auto) 0.1 Baso # (Auto) 0.1 Abs Immat Gran (auto) 0.20 H Absolute Neuts (auto) 14.4 H Absolute Nucleated RBC 0.020 H Nucleated RBC % (auto) 0.1 Smear Path Review SEE NOTE PT INR Whole Blood INR Sodium 137 Potassium 3.9 Chloride 106 Carbon Dioxide 20 L Anion Gap 15 BUN 22 H Creatinine 0.87 Estim Creat Clear Calc 54.3 Estimated GFR > 60 Random Glucose 208 H Calcium 8.5 D Troponin I High Sens 11.9 D COVID-19 (TIARA) COVID-19 Clin Com Blood Type Antibody Screen Crossmatch 06/24/22 06/24/22 06/24/22 09:20 09:20 09:53 WBC RBC Hgb Hct MCV MCH MCHC RDW Plt Count MPV Immature Gran % (Auto) Neut % (Auto) Lymph % (Auto) Mower % (Auto) Eos % (Auto) Baso % (Auto) Lymph # (Auto) Mower # (Auto) Eos # (Auto) Baso # (Auto) Abs Immat Gran (auto) Absolute Neuts (auto) Absolute Nucleated RBC Nucleated RBC % (auto) Smear Path Review PT 16.8 H INR 1.4 H Whole Blood INR Cancelled Sodium Potassium Chloride Carbon Dioxide Anion Gap BUN Creatinine Estim Creat Clear Calc Estimated GFR Random Glucose Calcium Troponin I High Sens COVID-19 (TIARA) Negative COVID-19 Clin Com See Note Blood Type Antibody Screen Crossmatch 06/24/22 06/24/22 10:26 14:51 WBC RBC Hgb Hct MCV MCH MCHC RDW Plt Count MPV Immature Gran % (Auto) Neut % (Auto) Lymph % (Auto) Mower % (Auto) Eos % (Auto) Baso % (Auto) Lymph # (Auto) Mower # (Auto) Eos # (Auto) Baso # (Auto) Abs Immat Gran (auto) Absolute Neuts (auto) Absolute Nucleated RBC Nucleated RBC % (auto) Smear Path Review PT INR Whole Blood INR Sodium Potassium Chloride Carbon Dioxide Anion Gap BUN Creatinine Estim Creat Clear Calc Estimated GFR Random Glucose Calcium Troponin I High Sens COVID-19 (TIARA) COVID-19 Clin Com Blood Type A Positive A Positive Antibody Screen NEGATIVE NEGATIVE Crossmatch See Detail See Detail Airway Mallampati Class: II Neck ROM: Full Partial: Upper and Lower Loose/Missing/Broken Teeth: Yes, Upper and Lower Heart: Loud JABIER heard precordially Lungs: CTA Assessment and Plan Final Anesthetic Review Family History of Problems with Anesthesia: No History of Problems with Anesthesia: No NPO: Yes ASA Class: IV Final Preanesthetic Review: Meds/Allgs Chart Reviewed, Consent Obtained/Reviewed and Anes Risks/Benef Reviewed Patient Risk: Intermediate Procedure Risk: Intermediate Anesthetic Plan Anesthetic Plan: MAC: Disposition: Standard PACU
--- NOTE | 2022-06-24 18:35 | PM.OP ---
Brief Operative Note Date of Service: 06/24/22 Pre-op diagnosis: UGI Bleed Post-op diagnosis: other (Ulcerated proximal gastric mass) Procedure: EGD Surgeon: Emiliano Herrera Anesthesia: MAC Was an Fruit Harvest Machine Operator used for this Procedure?: No Estimated blood loss (mL): 0 Pathology: none sent Condition: stable Disposition: PACU
--- NOTE | 2022-06-24 18:35 | PM.EVENT ---
Event Note Date of Service: 06/24/22 Event Note: GI-EGD-Full note dictated Findings: 1. Ulcerated suspicious approx. 1.5cm lesion in very proximal stomach, just beneath the EG Junction on the greater curvature seen best in the retroflexed position. Not bleeding. Not biopsied as she was on Eliquis up until today. 2. Multiple benign-appearing gastric polyps. 3. Hiatal hernia and her known Sevilla's esophagus. 4. Small amount of old blood in stomach Rec: Continue IV PPI and Carafate, clear liquids, F/U Hgb and transfuse PRN. Will need repeat upper endo with biopsies after she has been off her Eliquis for > 3 days. D/W patient and her significant other, Ed. Thanks Time Spent With Patient Time: Total time managing care of this patient today ____ minutes.
[2022-06-24] MEDS: Pantoprazole Sodium 40 MG/10 ML VIAL IVPUSH (20:14)
[2022-06-24 20:15] LABS: MANUAL DIFF FLAG NO
[2022-06-24] MEDS: Atorvastatin Calcium 10 MG TABLET PO (20:15)
[2022-06-24] MEDS: Amiodarone HCL 200 MG TABLET PO (20:15)
[2022-06-24] MEDS: Docusate Sodium 100 MG CAPSULE PO (20:15)
[2022-06-24 20:17] LABS: Basophils Absolute Auto 0.2 X10*3/uL (0.0-0.2); Basophils Percent Auto 0.8 % (0-2); Eosinophils Percent Auto 0.1 % (0-4); Hematocrit 27.5 % (37.0-47.0); Hemoglobin 9.1 g/dl (12.0-16.0); Imm Gran Abs Auto 0.17 X10*3/uL (0.00-0.03); Imm Gran Pct Auto 0.9 % (0.0-0.4); Lymphocytes Absolute Auto 2.8 X10*3/uL (1.2-4.9); Lymphocytes Percent Auto 15.7 % (20-40); Mean Corpuscular HGB Conc 33.1 g/dl (31.0-35.0); Mean Corpuscular Hemoglobin 30.3 pg (27.0-33.0); Mean Corpuscular Volume 91.7 fL (80.0-98.0); Mean Platelet Volume 9.6 fL (9.4-12.3); Monocytes Absolute Auto 1.1 X10*3/uL (0.1-1.2); Monocytes Percent Auto 6.2 % (2-11); NRBC Pct Auto 0.3 /100WBC (0.0-0.2); Neutrophils Absolute Auto 13.7 x10*3/uL (2.0-8.3); Neutrophils Percent Auto 76.3 % (45-73); Platelet Count 194 X10*3/uL (160-400); Red Cell Distribution Width 14.4 % (11.0-16.0)
[2022-06-25] VITALS (11 sets, daily range): BP systolic 95–125; BP diastolic 55–70; PULSE 66–104; RESP 16–20; TEMP 36–37.1; O2SAT 93–98
--- NOTE | 2022-06-25 02:58 | CONS_ITS ---
DATE OF SERVICE: 06/24/2022 REASON FOR CONSULTATION: Melena and anemia. HISTORY OF PRESENT ILLNESS: The patient is a 77-year-old female well known to me with an underlying history of GI issues including chronic reflux with Sevilla's esophagus and a chronic anemia in relation to some probable component of chronic GI blood loss. I last saw the patient when she was admitted to the hospital in mid-May with a pneumonia and new onset atrial fibrillation. She was not having particular GI symptoms nor evidence of bleeding at that time, and the question was whether she could be started on Eliquis for the atrial fibrillation safely from GI standpoint. At that point, given all her previous studies and no sign of active bleeding, I did not feel there was any definitive contraindication to that. Her most recent GI evaluations were in October 2021, when she was admitted with a GI bleed, felt to be due to a diverticular bleed. She underwent an upper endoscopy and colonoscopy during that admission in October [address] Cantrell. The upper endoscopy was negative for any sign of significant problems such as ulcer disease nor esophagitis. Her known Sevilla's esophagus was again noted. A colonoscopy revealed a tiny nonbleeding angiodysplasia in the ascending colon and a hyperplastic polyp. In 2020, she had had a negative small bowel video capsule study. An upper endoscopy in 2020 had revealed a nonbleeding gastric ulcer. During the hospitalization last month she was seen by cardiology and underwent a transesophageal echocardiogram and cardioversion. However, she did go back into atrial fibrillation. Since being home from the hospital, she has been feeling somewhat tired and little bit anorectic, but otherwise without any particular GI symptoms. She has been on the daily Eliquis. She does not use any aspirin, NSAID, tobacco, nor alcohol. Today, she had the new onset of black stool on 1 occasion. This was associated with some weakness. There was no nausea nor vomiting. She denies any abdominal pain nor significant heart burn. Due to the black stool, she came to the ER and was found to be significantly anemic with a hemoglobin of 6.6, compared to 9.9 on June 13. MEDICATIONS: Her current medications include IV Protonix, sucralfate, acetaminophen, amiodarone, atorvastatin, vitamin D, Diltiazem, Colace, Lasix, lidocaine patch, Zofran, and vitamin K. She had been on Eliquis at home. She does take omeprazole at home as well. PAST MEDICAL HISTORY: Sevilla's esophagus and gastroesophageal reflux. History of gastric ulcer. Non-bleeding tiny angiodysplasia of ascending colon. Anemia with negative GI workup, otherwise including small bowel video capsule study in 2020. Recent pneumonia and atrial fibrillation last month. Hyperlipidemia with hypertension. Fatty liver. Distant history of pancreatitis. Appendectomy. Hysterectomy. She does have hypertrophic cardiomyopathy followed by [facility]. SOCIAL HISTORY: She has a significant other. She does not smoke nor use any significant amounts of alcohol. FAMILY HISTORY: Noncontributory. REVIEW OF SYSTEMS: CONSTITUTIONAL: She has been feeling weak and somewhat anorectic. SKIN: No rash. No pruritus. CARDIAC: No chest pain. PULMONARY: No cough. No hemoptysis. GI: As above. URINARY: No dysuria. No hematuria. NEUROLOGIC: No headache or seizures. PSYCHIATRIC: Negative. PHYSICAL EXAMINATION: GENERAL: The patient is a pleasant elderly alert female who appears pale, but otherwise comfortable. SKIN: Warm and dry. HEENT: Anicteric sclerae. NECK: Supple without lymphadenopathy. CHEST: Clear. CARDIAC: Normal S1 and S2 with a systolic murmur. ABDOMEN: Soft, nondistended, nontender without palpable mass. EXTREMITIES: Without edema. NEUROLOGIC: She is alert and oriented x3. LABORATORY DATA: White blood cell count 18.9, hemoglobin 6.6, platelets 316,000. PT 16.8 with INR 1.4. Normal electrolytes. BUN 22, creatinine 0.9, blood sugar 208. Normal LFTs except for an ALT of 56. Albumin 2.9. Chest x-ray from today described a small right side pleural effusion. IMPRESSION: Given the patient's new onset of melena today with associated drop in hemoglobin, this does appear to represent an upper gastrointestinal source of blood loss. As such, she will undergo upper endoscopy today after transfusions with monitored anesthesia care. Full consent has been obtained from her for that, including risks of bleeding and perforation. We did review that we may not find an answer given all her previous studies, although she did have a gastric ulcer on an endoscopy about 2 years ago. In the meantime, I will continue her IV PPI and keep her n.p.o. until we have completed the procedure. Depending upon the findings, we may need to have her undergo repeat small bowel video capsule study at some point. I do not think a colonoscopy would be helpful here given the clinical scenario with the black stool with fairly significant drop in hemoglobin. I would suspect if this is a lower gastrointestinal source of bleeding, we would expect to see either maroon stool or amrietta blood. She will have a followup blood work tomorrow. This has all been discussed in detail with the patient and she is comfortable with the plan. Thank you for the consultation. MD JUDY Patel/MARGARET / [id number] MTDD
[2022-06-25] MEDS: Pantoprazole Sodium 40 MG/10 ML VIAL IVPUSH ×2 (05:40→17:39)
--- NOTE | 2022-06-25 06:39 | OP_ITS ---
DATE OF SERVICE: 06/24/2022 SURGEON: Emiliano Herrera MD INDICATIONS: The patient presents for evaluation of melena and anemia. Full consent has been obtained from her for this including risks of bleeding and perforation. PREOPERATIVE DIAGNOSIS: POSTOPERATIVE DIAGNOSIS: PROCEDURE PERFORMED: Esophagogastroduodenoscopy. ESTIMATED BLOOD LOSS: COMPLICATIONS: ANESTHESIA: Monitored anesthesia care. ASSISTANTS: SPECIMENS: PREOPERATIVE DIAGNOSES: Melena and anemia. POSTOPERATIVE DIAGNOSES: Melena and anemia, ulcerated proximal gastric mass, hiatal hernia, Sevilla's esophagus, gastric polyps. DESCRIPTION OF THE PROCEDURE: The patient was placed in the left lateral decubitus position. The Olympus video gastroscope was passed in the posterior oropharynx and upper esophagus under direct vision. The scope was passed slowly to the distal esophagus. The gastroesophageal junction appeared at 36 cm, extending from this to approximately 30 cm, was her known segment of Sevilla's esophagus. There was no evidence of any ulcerations, esophagitis, nor any suspicious lesions. The scope was advanced into the stomach. There was a [id number]-sized hiatal hernia. The scope was advanced to the region of the pylorus. There was a small amount of old blood in this area. The duodenum was cannulated to the second and third portions. The duodenal bulb appeared normal. There was no mass or ulceration. There was no blood in the duodenum. The scope was withdrawn back in the stomach. The gastric antrum and body were carefully inspected, which appeared normal, without any sign of mass or ulceration. There was no sign of any active bleeding. The scope was retroflexed visualizing the proximal stomach carefully. This revealed multiple hyperplastic-appearing gastric polyps. However, in the very proximal stomach, there was an approximately 1.5 cm ulcerated suspicious lesion. This was seen best in the retroflexed position and appeared to be along the greater curvature just beneath the EG junction. In the forward-viewing position I was able to visualize it to some degree, but not as well as in the retroflexed position. It appeared to be a flat, raised lesion and appeared somewhat firm. There was a central ulceration. There was no bleeding nor visible vessel. Biopsies were not obtained as she had taken her last dose of Eliquis just last evening. The scope was straightened and then withdrawn back into the esophagus. Proximal to the Sevilla's mucosa at 30 cm the esophageal mucosa appear normal. The scope was withdrawn from the patient. She tolerated the procedure well and was returned to the recovery area in stable condition. IMPRESSION: 1. Suspicious ulcerated proximal gastric lesion. 2. Gastric polyps. 3. Hiatal hernia. 4. History of Sevilla's esophagus. PLAN: At this point the patient will continue her IV PPI and sucralfate. She will be started on clear liquids. She will need to have this lesion biopsied once she has been off Eliquis for 3-4 days. This will be done as an inpatient if she is still in the hospital at the end of the week. If she is going to be discharged we could bring her back as an outpatient in the near future. In the meantime, she needs to stay off Eliquis, all other blood thinners, and all aspirin and NSAIDs. We will follow up laboratories in the morning including a CBC and chemistries. This has all been discussed with the patient and Ed, her significant other, in detail. MD JUDY Patel/MARGARET / [id number] MTDMei
[2022-06-25 06:48] LABS: MANUAL DIFF FLAG NO
[2022-06-25 06:54] LABS: Basophils Absolute Auto 0.1 X10*3/uL (0.0-0.2); Basophils Percent Auto 0.6 % (0-2); Eosinophils Absolute Auto 0.1 X10*3/uL (0.0-0.4); Eosinophils Percent Auto 0.7 % (0-4); Hematocrit 29.7 % (37.0-47.0); Hemoglobin 9.9 g/dl (12.0-16.0); Imm Gran Abs Auto 0.15 X10*3/uL (0.00-0.03); Lymphocytes Absolute Auto 2.5 X10*3/uL (1.2-4.9); Lymphocytes Percent Auto 16.4 % (20-40); Mean Corpuscular HGB Conc 33.3 g/dl (31.0-35.0); Mean Corpuscular Hemoglobin 29.9 pg (27.0-33.0); Mean Corpuscular Volume 89.7 fL (80.0-98.0); Mean Platelet Volume 9.9 fL (9.4-12.3); Monocytes Absolute Auto 0.9 X10*3/uL (0.1-1.2); NRBC Pct Auto 0.4 /100WBC (0.0-0.2); Neutrophils Absolute Auto 11.6 x10*3/uL (2.0-8.3); Neutrophils Percent Auto 75.3 % (45-73); Platelet Count 175 X10*3/uL (160-400); Red Blood Count 3.31 X10*6/uL (4.20-5.50); Red Cell Distribution Width 14.6 % (11.0-16.0); White Blood Count 15.5 X10*3/uL (4.8-10.8)
[2022-06-25 07:21] LABS: Anion Gap 10 (12-20); Blood Urea Nitrogen 20 mg/dL (9-16); Calcium 7.9 mg/dL (8.4-10.2); Carbon Dioxide 24 mmol/L (22-29); Chloride 109 mmol/L (96-108); Creatinine Clr Calc Pharmacy 67.3; Estimated Glomerular Filt Rate > 60; Glucose Random 93 mg/dL (60-115); Potassium 3.3 mmol/L (3.3-5.1); Sodium 140 mmol/L (135-145)
[2022-06-25] MEDS: Docusate Sodium 100 MG CAPSULE PO ×2 (07:42→21:05)
[2022-06-25] MEDS: dilTIAZem HCL CD 240 MG CAP.ER.DEG PO (07:42)
[2022-06-25] MEDS: Amiodarone HCL 200 MG TABLET PO ×2 (07:42→21:05)
[2022-06-25] MEDS: Sucralfate 1 GM TABLET PO ×4 (07:42→21:05)
[2022-06-25] MEDS: Cholecalciferol (Vitamin D3) 25 MCG TABLET PO (07:42)
[2022-06-25] MEDS: Cyanocobalamin (Vitamin B-12) 1,000 MCG TABLET 1000 MCG PO (07:42)
[2022-06-25] MEDS: Lidocaine 4 % Patch ADH..PATCH 1 PATCH TRANSDERMA (07:43)
[2022-06-25] MEDS: 0.9 % Sodium Chloride Flush 3 ML SYRINGE IVFLUSH ×3 (07:43→21:09)
--- NOTE | 2022-06-25 10:32 | HO.PM.IMPN ---
Subjective Subjective Date of Service: 06/25/22 Interval History: tolerated transfusion no abd pain tolerating diet EGD yesterday showed suspicious ulcerated proximal gastric lesion no further melena Physical Exam Vital Signs: Vital Signs: Last Vital Signs Temp 97.5 F 06/25/22 07:47 Pulse 100 06/25/22 08:02 Resp 18 06/25/22 07:47 BP 121/66 06/25/22 08:02 Pulse Ox 96 06/25/22 08:02 O2 Del Method Nasal Cannula 06/25/22 07:47 O2 Flow Rate 2 06/25/22 07:47 BMI result Body Mass Index 27.3 Gen: in no acute distress HEENT: sclera anicteric, moist mucus membranes Neck: supple Lungs: clear to auscultation bilaterally Heart: irregularly irregular, no murmurs Abd: soft, non-tender, non-distended Ext: no edema Skin: warm/well-perfused Neuro: alert and oriented x3, no focal findings Psych: appropriate affect Objective Data Active Medications Acetaminophen (Acetaminophen 325 Mg Tablet) 650 mg PO Q6H PRN PRN Reason: Pain, Mild (Pain Scale 1-3) Amiodarone HCl (Amiodarone Hcl 200 Mg Tablet) 200 mg PO BID [facility] Last Admin: 06/25/22 07:42 Dose: 200 mg Documented By: VICKIE Atorvastatin Calcium (Atorvastatin Calcium 10 Mg Tablet) 10 mg PO BEDTIME [facility] Last Admin: 06/24/22 20:15 Dose: 10 mg Documented By: PARVEEN Cyanocobalamin (Cyanocobalamin (Vitamin B-12) 1,000 Mcg Tablet) 1,000 mcg PO DAILY [facility] Last Admin: 06/25/22 07:42 Dose: 1,000 mcg Documented By: VICKIE Diltiazem HCl (Diltiazem Hcl Cd 240 Mg Cap.Er.Deg) 240 mg PO DAILY [facility]; Protocol Last Admin: 06/25/22 07:42 Dose: 240 mg Documented By: VICKIE Docusate Sodium (Docusate Sodium 100 Mg Capsule) 100 mg PO BID [facility] Last Admin: 06/25/22 07:42 Dose: 100 mg Documented By: VICKIE Lidocaine (Lidocaine 4 % Patch Adh..Patch) 1 patch TRANSDERMA DAILY [facility]; Protocol Last Admin: 06/25/22 07:43 Dose: 1 patch Documented By: VICKIE Ondansetron HCl (Ondansetron Hcl 4 Mg/2 Ml Vial) 4 mg IVPUSH Q8H PRN PRN Reason: Nausea and Vomiting Pantoprazole Sodium (Pantoprazole Sodium 40 Mg/10 Ml Vial) 40 mg IVPUSH BID@0630,1630 [facility] Last Admin: 06/25/22 05:40 Dose: 40 mg Documented By: LIVAN Pharmacy Consult (Consult Rx Perform Med Rec) 1 each MISCELLANE ONCE PRN PRN Reason: Consult order Sodium Chloride (0.9 % Sodium Chloride Flush 3 Ml Syringe) 3 ml IVFLUSH QSHIFT [facility] Last Admin: 06/25/22 07:43 Dose: 3 ml Documented By: VICKIE Sucralfate (Sucralfate 1 Gm Tablet) 1 gm PO QIDACHS [facility] Last Admin: 06/25/22 07:42 Dose: 1 gm Documented By: VICKIE Vitamin D (Cholecalciferol (Vitamin D3) 25 Mcg Tablet) 25 mcg PO DAILY [facility] Last Admin: 06/25/22 07:42 Dose: 25 mcg Documented By: VICKIE Labs 06/25/22 06:27 06/25/22 06:27 Labs: Laboratory Results - last 24 hr 06/24/22 06/24/22 06/24/22 09:20 09:20 10:26 MCV MCH MCHC RDW Plt Count MPV Immature Gran % (Auto) Neut % (Auto) Lymph % (Auto) [place] % (Auto) Eos % (Auto) Baso % (Auto) Lymph # (Auto) [place] # (Auto) Eos # (Auto) Baso # (Auto) Abs Immat Gran (auto) Absolute Neuts (auto) Absolute Nucleated RBC Nucleated RBC % (auto) Smear Path Review SEE NOTE Whole Blood INR Cancelled Anion Gap Estim Creat Clear Calc Estimated GFR Random Glucose Calcium Blood Type A Positive Antibody Screen NEGATIVE Crossmatch See Detail 06/24/22 06/24/22 06/25/22 14:51 20:06 06:27 MCV 91.7 89.7 MCH 30.3 29.9 MCHC 33.1 33.3 RDW 14.4 14.6 Plt Count 194 D 175 MPV 9.6 9.9 Immature Gran % (Auto) 0.9 H 1.0 H Neut % (Auto) 76.3 H 75.3 H Lymph % (Auto) 15.7 L 16.4 L [place] % (Auto) 6.2 6.0 Eos % (Auto) 0.1 0.7 Baso % (Auto) 0.8 0.6 Lymph # (Auto) 2.8 2.5 [place] # (Auto) 1.1 0.9 Eos # (Auto) 0.0 0.1 Baso # (Auto) 0.2 0.1 Abs Immat Gran (auto) 0.17 H 0.15 H Absolute Neuts (auto) 13.7 H 11.6 H Absolute Nucleated RBC 0.060 H 0.060 H Nucleated RBC % (auto) 0.3 H 0.4 H Smear Path Review Whole Blood INR Anion Gap Estim Creat Clear Calc Estimated GFR Random Glucose Calcium Blood Type A Positive Antibody Screen NEGATIVE Crossmatch See Detail 06/25/22 06:27 MCV MCH MCHC RDW Plt Count MPV Immature Gran % (Auto) Neut % (Auto) Lymph % (Auto) [place] % (Auto) Eos % (Auto) Baso % (Auto) Lymph # (Auto) [place] # (Auto) Eos # (Auto) Baso # (Auto) Abs Immat Gran (auto) Absolute Neuts (auto) Absolute Nucleated RBC Nucleated RBC % (auto) Smear Path Review Whole Blood INR Anion Gap 10 L Estim Creat Clear Calc 67.3 Estimated GFR > 60 Random Glucose 93 Calcium 7.9 L D Blood Type Antibody Screen Crossmatch Assessment and Plan (1) Acute gastrointestinal bleeding: Status: Acute Plan d#2 77yo F with recently diagnosed and cardioverted AF on apixaban, HOCM, hx Sevilla's esophagus, history of bleeding gastric ulcer + AVMs requiring transfusion in 02/11 and 11/12, vit 12 deficiency admitted for anemia, melena, AF/RVR # 1.5 cm suspicious ulcerated proximal gastric mass - EGD done 06/24/[address] Herrera - not bleeding, not biopsied due to taking apixaban 06/23/22, will repeat EGD with biopsies 06/27/22 - continue IV PPI, sucralfate # acute GI blood loss anemia - transfused 2u pRBCs with appropriate rise in H+H, monitor q12h - apixaban stopped, given 10mg vit K # AF/RVR - rate now around 100 - continue amiodarone, diltiazem - hold apixaban - Cardiology consulted # leukocytosis - suspect due to recent steroids + PNA # chronic WES - FeSO4 # B12 deficiency - repletion # HLD - continue statin # VTE ppx: SCDs # dispo: PT eval done, anticipate home with VNA eventually In my clinical judgment, the patient requires continued inpatient hospitalization for the following reasons: anemia due to GI blood loss, endoscopic evaluation Time Spent With Patient Time: Total time managing care of this patient today __45__ minutes. Quality Stroke Does the patient have a stroke diagnosis?: No VTE Prior VTE?: No VTE Risk Level:: Medical - moderate - high VTE Device Contraindication: N/A - Device Ordered VTE Drug Contraindication: Treatment Not Indicated
--- NOTE | 2022-06-25 14:10 | HO.POSTANES ---
Post Anesthesia Evaluation Post Anesthesia Evaluation Vital Signs: Vital Signs Temp Pulse Resp BP Pulse Ox O2 Del Method O2 Flow Rate 06/25/22 11:46 97.2 F 72 18 108/55 L 97 Nasal Cannula 2 06/25/22 08:02 100 121/66 96 06/25/22 07:47 97.5 F 100 18 121/66 96 Nasal Cannula 2 06/25/22 03:31 97 F 96 16 95/60 96 Nasal Cannula 06/25/22 02:43 96.8 F 87 18 125/67 Anesthesia: Monitored Mental Status: Awake Pain Control: Satisfactory Nausea/Vomiting: None Hydration: Adequate Anesthesia-Related Issues: No Anes. Related Issues
--- NOTE | 2022-06-25 14:28 | P.PNCA_ITS ---
Subjective Subjective Date of Service: 06/25/22 Interval history: Patient seen examined at bedside. She underwent endoscopy which is concerning for suspicious ulcer. She did not get biopsy because she was on Eliquis recently. She is saying she had some palpitations last night but is doing better today. No chest discomfort dizziness. Physical Exam Vital Signs: Last Vital Signs Temp 97.2 F 06/25/22 11:46 Pulse 72 06/25/22 11:46 Resp 18 06/25/22 11:46 BP 108/55 L 06/25/22 11:46 Pulse Ox 97 06/25/22 11:46 O2 Del Method Nasal Cannula 06/25/22 11:46 O2 Flow Rate 2 06/25/22 11:46 BMI result Body Mass Index 27.3 GENERAL APPEARANCE: in no acute distress, pleasant. NECK: no carotid bruit, mild jugular venous distention. SKIN: no suspicious lesions, warm and dry. HEART: Systolic murmur all over the precordium, irregular rate and rhythm. LUNGS: clear to auscultation bilaterally. ABDOMEN: soft, nontender. EXTREMITIES: no edema. PERIPHERAL PULSES: equal. NEUROLOGIC: No gross deficits, AAO X 3 Objective Labs and Meds 06/25/22 06:27 06/25/22 06:27 Lab results: Laboratory Results - last 24 hr 06/24/22 06/24/22 06/25/22 14:51 20:06 06:27 WBC 18.0 H 15.5 H RBC 3.00 L D 3.31 L Hgb 9.1 L D 9.9 L Hct 27.5 L D 29.7 L MCV 91.7 89.7 MCH 30.3 29.9 MCHC 33.1 33.3 RDW 14.4 14.6 Plt Count 194 D 175 MPV 9.6 9.9 Immature Gran % (Auto) 0.9 H 1.0 H Neut % (Auto) 76.3 H 75.3 H Lymph % (Auto) 15.7 L 16.4 L [place] % (Auto) 6.2 6.0 Eos % (Auto) 0.1 0.7 Baso % (Auto) 0.8 0.6 Lymph # (Auto) 2.8 2.5 [place] # (Auto) 1.1 0.9 Eos # (Auto) 0.0 0.1 Baso # (Auto) 0.2 0.1 Abs Immat Gran (auto) 0.17 H 0.15 H Absolute Neuts (auto) 13.7 H 11.6 H Absolute Nucleated RBC 0.060 H 0.060 H Nucleated RBC % (auto) 0.3 H 0.4 H Sodium Potassium Chloride Carbon Dioxide Anion Gap BUN Creatinine Estim Creat Clear Calc Estimated GFR Random Glucose Calcium Procalcitonin Blood Type A Positive Antibody Screen NEGATIVE Crossmatch See Detail 06/25/22 06:27 WBC RBC Hgb Hct MCV MCH MCHC RDW Plt Count MPV Immature Gran % (Auto) Neut % (Auto) Lymph % (Auto) [place] % (Auto) Eos % (Auto) Baso % (Auto) Lymph # (Auto) [place] # (Auto) Eos # (Auto) Baso # (Auto) Abs Immat Gran (auto) Absolute Neuts (auto) Absolute Nucleated RBC Nucleated RBC % (auto) Sodium 140 Potassium 3.3 Chloride 109 H Carbon Dioxide 24 Anion Gap 10 L BUN 20 H Creatinine 0.72 Estim Creat Clear Calc 67.3 Estimated GFR > 60 Random Glucose 93 Calcium 7.9 L D Procalcitonin 0.10 Blood Type Antibody Screen Crossmatch Progress Note: A&P Assessment and plan (1) Hypertrophic cardiomyopathy: Status: Acute (2) Atrial fibrillation with RVR: Status: Acute Plan Pleasant 77-year-old female who has hypertrophic cardiomyopathy and paroxysmal atrial fibrillation who is presenting with GI bleed and AFib with RVR. Unfortunately she has been diagnosed with a suspicious ulcer and there is some concern for cancer. She has not have any biopsy yet because she was on Eliquis recently. She is going to stay in house for repeat endoscopy and biopsy of the ulcer. Depending on the result further management will be planned. Eliquis should be held till we have clarity about the cause of ulcer and her bleeding risk. Heart rate better control since she got transfusions. Continue same medications for now otherwise. She is stable from hypertrophic cardiomyopathy point of view. Thank you for allowing me to participate in the care of your patient. Please feel free to contact me if you have any questions. Time Spent With Patient Time: Total time managing care of this patient today _25___ minutes. Progress Note: Quality Stroke Does the patient have a stroke diagnosis?: No Procedures Date of Service Date of Service: 06/25/22
--- NOTE | 2022-06-25 16:31 | MHC.SHP ---
Pre-Procedural Eval Section A Date of Service: 06/27/22 The patient is an INPATIENT: Yes The History & Physical has been completed within 30 days and I have reviewed it.: Yes Section B Chief Complaint: afib rvr, ugib Allergies: Allergies Allergy/AdvReac Type Severity Reaction Status Date / Time enflurane [ENFLURANE] Allergy Severe Per Verified 06/24/22 08:55 Patient Liver toxicity piperacillin [Zosyn] Allergy Severe Rash Verified 06/24/22 08:55 tazobactam [Zosyn] Allergy Severe Rash Verified 06/24/22 08:55 Plan I have reviewed the history and physical and performed a pertinent physical examination on my patient. No changes have occurred unless specified. Time Spent With Patient Time: Total time managing care of this patient today ____ minutes.
[2022-06-25 18:39] LABS: Hematocrit 27.5 % (37.0-47.0); Hemoglobin 9.1 g/dl (12.0-16.0); Mean Corpuscular HGB Conc 33.1 g/dl (31.0-35.0); Mean Corpuscular Hemoglobin 30.2 pg (27.0-33.0); Mean Corpuscular Volume 91.4 fL (80.0-98.0); Mean Platelet Volume 10.1 fL (9.4-12.3); NRBC Pct Auto 0.5 /100WBC (0.0-0.2); Platelet Count 186 X10*3/uL (160-400); Red Blood Count 3.01 X10*6/uL (4.20-5.50); Red Cell Distribution Width 15.4 % (11.0-16.0); White Blood Count 15.4 X10*3/uL (4.8-10.8)
[2022-06-25] MEDS: Atorvastatin Calcium 10 MG TABLET PO (21:05)
--- NOTE | 2022-06-25 22:28 | PM.EVENT ---
Event Note Date of Service: 06/25/22 Event Note: GI Follow up Patient with stable Hgb and no sign of active bleeding. Remains off Eliquis. On IV PPI and PO Sucralfate(orders placed to hold Sucralfate after MN on Friday). Will plan for repeat EGD on , 06/27 as that will be > 72 hours off of her Eliquis. Will plan to reinspect ulcerated proximal gastric lesion and obtain biopsies. Continue to follow Hgb. Please call if she has signs of bleeding. Thanks Time Spent With Patient Time: Total time managing care of this patient today ____ minutes.
[2022-06-26 04:00] VITALS: BP 132/61; PULSE 72; RESP 20; TEMP 36.7; O2SAT 93
[2022-06-26] MEDS: Pantoprazole Sodium 40 MG/10 ML VIAL IVPUSH ×2 (06:15→16:44)
[2022-06-26 06:35] LABS: Hematocrit 26.4 % (37.0-47.0); Hemoglobin 8.7 g/dl (12.0-16.0); Platelet Count 171 X10*3/uL (160-400); Red Cell Distribution Width 15.6 % (11.0-16.0); White Blood Count 11.3 X10*3/uL (4.8-10.8)
[2022-06-26 06:36] LABS: INTERNATIONAL NORM RATIO 1.1 (0.9-1.1)
[2022-06-26 07:22] VITALS: BP 144/76; PULSE 73; RESP 16; TEMP 37.4; O2SAT 93
[2022-06-26] MEDS: Lidocaine 4 % Patch ADH..PATCH 1 PATCH TRANSDERMA (08:21)
[2022-06-26] MEDS: Docusate Sodium 100 MG CAPSULE PO ×2 (08:22→20:44)
[2022-06-26] MEDS: dilTIAZem HCL CD 240 MG CAP.ER.DEG PO (08:22)
[2022-06-26] MEDS: Cyanocobalamin (Vitamin B-12) 1,000 MCG TABLET 1000 MCG PO (08:22)
[2022-06-26] MEDS: Sucralfate 1 GM TABLET PO ×4 (08:22→20:44)
[2022-06-26] MEDS: Amiodarone HCL 200 MG TABLET PO ×2 (08:22→20:44)
[2022-06-26] MEDS: Cholecalciferol (Vitamin D3) 25 MCG TABLET PO (08:23)
[2022-06-26 08:50] VITALS: BP 144/76; PULSE 73; O2SAT 93
--- NOTE | 2022-06-26 10:50 | P.PNCA_ITS ---
Subjective Subjective Date of Service: 06/26/22 Interval history: Seen and examined at bedside. Doing well and back in sinus rhythm. Waiting for endoscopy. Physical Exam Vital Signs: Last Vital Signs Temp 99.3 F 06/26/22 07:22 Pulse 73 06/26/22 08:50 Resp 16 06/26/22 07:22 BP 144/76 H 06/26/22 08:50 Pulse Ox 93 06/26/22 08:50 O2 Del Method Room Air 06/26/22 07:22 O2 Flow Rate 2 06/25/22 23:47 BMI result Body Mass Index 27.3 GENERAL APPEARANCE: in no acute distress, pleasant. NECK: no carotid bruit, mild jugular venous distention. SKIN: no suspicious lesions, warm and dry. HEART: Systolic murmur all over the precordium, regular rate and rhythm. LUNGS: clear to auscultation bilaterally. ABDOMEN: soft, nontender. EXTREMITIES: no edema. PERIPHERAL PULSES: equal. NEUROLOGIC: No gross deficits, AAO X 3 Objective Labs and Meds 06/26/22 06:08 06/25/22 06:27 Lab results: Laboratory Results - last 24 hr 06/25/22 06/25/22 06/26/22 06:27 18:21 06:08 WBC 15.4 H 11.3 H RBC 3.01 L 2.90 L Hgb 9.1 L 8.7 L Hct 27.5 L 26.4 L MCV 91.4 91.0 MCH 30.2 30.0 MCHC 33.1 33.0 RDW 15.4 15.6 Plt Count 186 171 MPV 10.1 10.0 Absolute Nucleated RBC 0.070 H 0.000 Nucleated RBC % (auto) 0.5 H 0.0 PT INR Procalcitonin 0.10 06/26/22 06:08 WBC RBC Hgb Hct MCV MCH MCHC RDW Plt Count MPV Absolute Nucleated RBC Nucleated RBC % (auto) PT 13.0 INR 1.1 Procalcitonin Progress Note: A&P Assessment and plan (1) Hypertrophic cardiomyopathy: Status: Acute (2) Paroxysmal atrial fibrillation: Status: Resolved Plan Pleasant 77 year female presenting with paroxysmal atrial fibrillation the sett ing of GI bleed. She was transfused and has reverted back to sinus rhythm. She is on amiodarone 200 mg twice a day. She was previously on Eliquis which has been held because of GI bleed concern for suspicious ulcer. She will get biopsy in couple of days as the Eliquis washes out. She has hypertrophic cardiomyopathy. She is asymptomatic currently. Thank you for allowing me to participate in the care of your patient. Please feel free to contact me if you have any questions. Time Spent With Patient Time: Total time managing care of this patient today __20__ minutes. Progress Note: Quality Stroke Does the patient have a stroke diagnosis?: No Procedures Date of Service Date of Service: 06/26/22
[2022-06-26 11:03] VITALS: BP 116/66; PULSE 69; RESP 16; TEMP 36.8; O2SAT 92
[2022-06-26 12:33] LABS: Appearance Urine Clear; Color Urine Yellow; Glucose Urine UA Negative (Negative); Leukocyte Esterase Urine Trace (Negative); Nitrite Urine Negative (Negative); UMIC TRIGGER UACC YES; Urine Blood Negative (Negative); Urine Ketones Negative (Negative); Urine Protein Negative (Neg-Trace)
[2022-06-26 12:50] LABS: Bacteria Urine None Seen (None Seen); Hyaline Casts Urine 0-2 /LPF (0-2); RBC Urine 0-2 /HPF (0-2); Squamous Epithelial Cell Urine 0-2 /HPF (0-2); WBC Urine 0-5 /HPF (0-5)
--- NOTE | 2022-06-26 13:41 | MHC.CM.PN ---
EMR REVIEWED, PT W/AFIB RVR AND UGIB, PER GI PT SCHEDULED FOR EGD W/BIOPSY PLANNED FOR TOMORROW 06/27 PT WILL HAVE BEEN OFF ELIQUIS 72HRS, CM WILL CONT TO FOLLOW D/C NEEDS.
[2022-06-26 15:33] VITALS: BP 122/54; PULSE 67; RESP 18; TEMP 36.7; O2SAT 94
[2022-06-26 19:22] VITALS: BP 128/64; PULSE 67; RESP 17; TEMP 36.6; O2SAT 95
[2022-06-26] MEDS: Atorvastatin Calcium 10 MG TABLET PO (20:44)
[2022-06-27] VITALS (12 sets, daily range): BP systolic 89–134; BP diastolic 47–65; PULSE 64–90; RESP 16–20; TEMP 36.1–37.1; O2SAT 93–99
[2022-06-27] MEDS: Lactated Ringers 1,000 ML 50 ML IVCONT ×3 (00:51→19:44)
[2022-06-27] MEDS: 0.9 % Sodium Chloride Flush 3 ML SYRINGE IVFLUSH ×4 (00:51→19:42)
[2022-06-27] MEDS: Pantoprazole Sodium 40 MG/10 ML VIAL IVPUSH ×2 (05:25→16:10)
[2022-06-27 07:56] LABS: Hematocrit 25.8 % (37.0-47.0); Hemoglobin 8.3 g/dl (12.0-16.0); Mean Corpuscular HGB Conc 32.2 g/dl (31.0-35.0); Mean Corpuscular Hemoglobin 29.9 pg (27.0-33.0); Mean Corpuscular Volume 92.8 fL (80.0-98.0); Mean Platelet Volume 10.2 fL (9.4-12.3); Platelet Count 176 X10*3/uL (160-400); Red Blood Count 2.78 X10*6/uL (4.20-5.50); Red Cell Distribution Width 16.3 % (11.0-16.0); White Blood Count 7.6 X10*3/uL (4.8-10.8)
[2022-06-27] MEDS: Cholecalciferol (Vitamin D3) 25 MCG TABLET PO (08:09)
[2022-06-27] MEDS: Cyanocobalamin (Vitamin B-12) 1,000 MCG TABLET 1000 MCG PO (08:09)
[2022-06-27] MEDS: Amiodarone HCL 200 MG TABLET PO ×2 (08:09→19:42)
[2022-06-27] MEDS: Docusate Sodium 100 MG CAPSULE PO (08:09)
[2022-06-27] MEDS: dilTIAZem HCL CD 240 MG CAP.ER.DEG PO (08:09)
[2022-06-27] MEDS: Lidocaine 4 % Patch ADH..PATCH 1 PATCH TRANSDERMA (08:10)
[2022-06-27 08:23] LABS: Anion Gap 15 (12-20); Blood Urea Nitrogen 14 mg/dL (9-16); Calcium 8.1 mg/dL (8.4-10.2); Carbon Dioxide 24 mmol/L (22-29); Chloride 107 mmol/L (96-108); Creatinine Clr Calc Pharmacy 69.3; Estimated Glomerular Filt Rate > 60; Glucose Random 91 mg/dL (60-115); Magnesium 1.7 mg/dL (1.6-2.6); Potassium 3.6 mmol/L (3.3-5.1); Sodium 142 mmol/L (135-145)
--- NOTE | 2022-06-27 11:33 | P.CONAN_ITS ---
[facility] Active Problems Active Problems: All Active Problems (Updated 06/24/22 @ 13:21 by Mike Marshall MD) Hypertrophic cardiomyopathy (Acute) Acute gastrointestinal bleeding (Acute) Atrial fibrillation with RVR (Acute) Frequent falls (Acute) Need for assistance due to unsteady gait (Acute) Weakness (Acute) Leukocytosis (Acute) Hearing impairment (Acute) Rectal bleeding (Acute) Hospital discharge follow-up (Acute) Edema of right lower extremity (Acute) Acute blood loss anemia (Acute) Acute GI bleeding (Acute) Vitamin B12 deficiency (Acute) Sevilla's esophagus (Acute) Abnormal finding on EKG (Acute) Vertigo (Acute) Dizziness (Acute) Iron deficiency anemia (Acute) Acute blood loss anemia (Acute) Difficulty sleeping (Acute) Overweight (BMI 25.0-29.9) (Acute) Primary osteoarthritis of hand (Acute) Vitamin D deficiency (Acute) Osteopenia (Acute) Cardiac murmur (Acute) Hiatal hernia (Acute) Benign essential hypertension (Acute) Pure hypercholesterolemia (Acute) Past Medical History Medical History Afib Anemia Anemia Atrial fibrillation with RVR Sevilla's esophagus Benign essential hypertension Cardiac murmur Gastric ulcer Hiatal hernia History of blood transfusion Hypertrophic cardiomyopathy Osteopenia Overweight (BMI 25.0-29.9) Primary osteoarthritis of hand Pure hypercholesterolemia Vitamin B12 deficiency Vitamin D deficiency Family History Family History Father Hypertension Mother Stroke Family history of problems with anesthesia: No Surgical History Surgical History History of appendectomy History of esophagogastroduodenoscopy (EGD) History of hysterectomy History of Problems with Anesthesia: No Social History Social History Household Members: Spouse Housing: House Do you presently have visiting nurse or other home services: No Alcohol intake: never Patient Tobacco Use Status: Never used Tobacco e-Cigarette/Vaping Use: Never Used Second Hand Smoke Exposure: No Advance Directives Date on File: 01/22/21 service: No Current occupational status: retired Cognitive needs: No Hearing needs: No Vision needs: Yes (glasses) Meds Allergies Allergy/AdvReac Type Severity Reaction Status Date / Time enflurane [ENFLURANE] Allergy Severe Per Verified 06/24/22 08:55 Patient Liver toxicity piperacillin [Zosyn] Allergy Severe Rash Verified 06/24/22 08:55 tazobactam [Zosyn] Allergy Severe Rash Verified 06/24/22 08:55 Active Medications: Current Medications Acetaminophen (Acetaminophen 325 Mg Tablet) 650 mg PO Q6H PRN PRN Reason: Pain, Mild (Pain Scale 1-3) Amiodarone HCl (Amiodarone Hcl 200 Mg Tablet) 200 mg PO BID [facility] Last Admin: 06/27/22 08:09 Dose: 200 mg Atorvastatin Calcium (Atorvastatin Calcium 10 Mg Tablet) 10 mg PO BEDTIME [facility] Last Admin: 06/26/22 20:44 Dose: 10 mg Cyanocobalamin (Cyanocobalamin (Vitamin B-12) 1,000 Mcg Tablet) 1,000 mcg PO DAILY [facility] Last Admin: 06/27/22 08:09 Dose: 1,000 mcg Diltiazem HCl (Diltiazem Hcl Cd 240 Mg Cap.Er.Deg) 240 mg PO DAILY [facility]; Protocol Last Admin: 06/27/22 08:09 Dose: 240 mg Docusate Sodium (Docusate Sodium 100 Mg Capsule) 100 mg PO BID [facility] Last Admin: 06/27/22 08:09 Dose: 100 mg Lactated Ringer's (Lr) 1,000 mls @ 50 mls/hr IVCONT .Q20H [facility] Stop: 06/27/22 18:00 Last Admin: 06/27/22 00:51 Dose: 50 mls/hr Lidocaine (Lidocaine 4 % Patch Adh..Patch) 1 patch TRANSDERMA DAILY [facility]; Protocol Last Admin: 06/27/22 08:10 Dose: 1 patch Ondansetron HCl (Ondansetron Hcl 4 Mg/2 Ml Vial) 4 mg IVPUSH Q8H PRN PRN Reason: Nausea and Vomiting Pantoprazole Sodium (Pantoprazole Sodium 40 Mg/10 Ml Vial) 40 mg IVPUSH BID@0630,1630 [facility] Last Admin: 06/27/22 05:25 Dose: 40 mg Pharmacy Consult (Consult Rx Perform Med Rec) 1 each MISCELLANE ONCE PRN PRN Reason: Consult order Sodium Chloride (0.9 % Sodium Chloride Flush 3 Ml Syringe) 3 ml IVFLUSH QSHIFT [facility] Last Admin: 06/27/22 08:10 Dose: 3 ml Sucralfate (Sucralfate 1 Gm Tablet) 1 gm PO QIDACHS [facility] Last Admin: 06/26/22 20:44 Dose: 1 gm Vitamin D (Cholecalciferol (Vitamin D3) 25 Mcg Tablet) 25 mcg PO DAILY [facility] Last Admin: 06/27/22 08:09 Dose: 25 mcg Home Medications Medication Instructions Recorded Confirmed Last Taken Type omeprazole 40 mg capsule,delayed 40 mg PO DAILY@0630 08/10/21 06/24/22 06/24/22 History release atorvastatin 10 mg tablet 10 mg PO BEDTIME 06/05/22 06/24/22 06/23/22 History amiodarone 200 mg tablet 200 mg PO BID 06/13/22 06/24/22 06/24/22 History ferrous sulfate 325 mg (65 mg 325 mg PO BID 06/24/22 06/24/22 06/24/22 History iron) tablet Exam Exam Date and Time: June 27, 2022 1133 Height,Weight and Vital Signs: Height 5 ft 6 in Weight 76.7 kg Last Vital Signs Temp 98.1 F 06/27/22 07:16 Pulse 86 06/27/22 07:16 Resp 18 06/27/22 07:16 BP 130/64 06/27/22 07:16 Pulse Ox 93 06/27/22 07:16 O2 Del Method Room Air 06/27/22 03:07 O2 Flow Rate 2 06/25/22 23:47 Pertinent Lab Results Pertinent Lab Results: Laboratory Tests 06/24/22 06/24/22 06/24/22 09:20 09:20 09:20 WBC 18.9 H RBC 2.32 L D Hgb 6.6 L* D Hct 21.2 L D MCV 91.4 MCH 28.4 MCHC 31.1 RDW 15.0 Plt Count 316 MPV 10.2 Immature Gran % (Auto) 1.1 H Neut % (Auto) 76.0 H Lymph % (Auto) 16.7 L Wayne % (Auto) 4.8 Eos % (Auto) 0.7 Baso % (Auto) 0.7 Lymph # (Auto) 3.2 Wayne # (Auto) 0.9 Eos # (Auto) 0.1 Baso # (Auto) 0.1 Abs Immat Gran (auto) 0.20 H Absolute Neuts (auto) 14.4 H Absolute Nucleated RBC 0.020 H Nucleated RBC % (auto) 0.1 Smear Path Review SEE NOTE PT INR Whole Blood INR Sodium 137 Potassium 3.9 Chloride 106 Carbon Dioxide 20 L Anion Gap 15 BUN 22 H Creatinine 0.87 Estim Creat Clear Calc 54.3 Estimated GFR > 60 Random Glucose 208 H Calcium 8.5 D Magnesium Troponin I High Sens 11.9 D Procalcitonin Urine Color Urine Appearance Urine pH Ur Specific Hitch[place] Urine Protein Urine Glucose (UA) Urine Ketones Urine Blood Urine Nitrite Ur Leukocyte Esterase Urine RBC Urine WBC Ur Squamous Epith Cells Urine Bacteria Hyaline Casts COVID-19 (TIARA) COVID-19 Clin Com Blood Type Antibody Screen Crossmatch 06/24/22 06/24/22 06/24/22 09:20 09:20 09:53 WBC RBC Hgb Hct MCV MCH MCHC RDW Plt Count MPV Immature Gran % (Auto) Neut % (Auto) Lymph % (Auto) Wayne % (Auto) Eos % (Auto) Baso % (Auto) Lymph # (Auto) Wayne # (Auto) Eos # (Auto) Baso # (Auto) Abs Immat Gran (auto) Absolute Neuts (auto) Absolute Nucleated RBC Nucleated RBC % (auto) Smear Path Review PT 16.8 H INR 1.4 H Whole Blood INR Cancelled Sodium Potassium Chloride Carbon Dioxide Anion Gap BUN Creatinine Estim Creat Clear Calc Estimated GFR Random Glucose Calcium Magnesium Troponin I High Sens Procalcitonin Urine Color Urine Appearance Urine pH Ur Specific [place] Urine Protein Urine Glucose (UA) Urine Ketones Urine Blood Urine Nitrite Ur Leukocyte Esterase Urine RBC Urine WBC Ur Squamous Epith Cells Urine Bacteria Hyaline Casts COVID-19 (TIARA) Negative COVID-19 Clin Com See Note Blood Type Antibody Screen Crossmatch 06/24/22 06/24/22 06/24/22 10:26 14:51 20:06 WBC 18.0 H RBC 3.00 L D Hgb 9.1 L D Hct 27.5 L D MCV 91.7 MCH 30.3 MCHC 33.1 RDW 14.4 Plt Count 194 D MPV 9.6 Immature Gran % (Auto) 0.9 H Neut % (Auto) 76.3 H Lymph % (Auto) 15.7 L Wayne % (Auto) 6.2 Eos % (Auto) 0.1 Baso % (Auto) 0.8 Lymph # (Auto) 2.8 Wayne # (Auto) 1.1 Eos # (Auto) 0.0 Baso # (Auto) 0.2 Abs Immat Gran (auto) 0.17 H Absolute Neuts (auto) 13.7 H Absolute Nucleated RBC 0.060 H Nucleated RBC % (auto) 0.3 H Smear Path Review PT INR Whole Blood INR Sodium Potassium Chloride Carbon Dioxide Anion Gap BUN Creatinine Estim Creat Clear Calc Estimated GFR Random Glucose Calcium Magnesium Troponin I High Sens Procalcitonin Urine Color Urine Appearance Urine pH Ur Specific [place] Urine Protein Urine Glucose (UA) Urine Ketones Urine Blood Urine Nitrite Ur Leukocyte Esterase Urine RBC Urine WBC Ur Squamous Epith Cells Urine Bacteria Hyaline Casts COVID-19 (TIARA) COVID-19 Clin Com Blood Type A Positive A Positive Antibody Screen NEGATIVE NEGATIVE Crossmatch See Detail See Detail 06/25/22 06/25/22 06/25/22 06:27 06:27 18:21 WBC 15.5 H 15.4 H RBC 3.31 L 3.01 L Hgb 9.9 L 9.1 L Hct 29.7 L 27.5 L MCV 89.7 91.4 MCH 29.9 30.2 MCHC 33.3 33.1 RDW 14.6 15.4 Plt Count 175 186 MPV 9.9 10.1 Immature Gran % (Auto) 1.0 H Neut % (Auto) 75.3 H Lymph % (Auto) 16.4 L Wayne % (Auto) 6.0 Eos % (Auto) 0.7 Baso % (Auto) 0.6 Lymph # (Auto) 2.5 Wayne # (Auto) 0.9 Eos # (Auto) 0.1 Baso # (Auto) 0.1 Abs Immat Gran (auto) 0.15 H Absolute Neuts (auto) 11.6 H Absolute Nucleated RBC 0.060 H 0.070 H Nucleated RBC % (auto) 0.4 H 0.5 H Smear Path Review PT INR Whole Blood INR Sodium 140 Potassium 3.3 Chloride 109 H Carbon Dioxide 24 Anion Gap 10 L BUN 20 H Creatinine 0.72 Estim Creat Clear Calc 67.3 Estimated GFR > 60 Random Glucose 93 Calcium 7.9 L D Magnesium Troponin I High Sens Procalcitonin 0.10 Urine Color Urine Appearance Urine pH Ur Specific [place] Urine Protein Urine Glucose (UA) Urine Ketones Urine Blood Urine Nitrite Ur Leukocyte Esterase Urine RBC Urine WBC Ur Squamous Epith Cells Urine Bacteria Hyaline Casts COVID-19 (TIARA) COVID-19 Clin Com Blood Type Antibody Screen Crossmatch 06/26/22 06/26/22 06/26/22 06:08 06:08 10:25 WBC 11.3 H RBC 2.90 L Hgb 8.7 L Hct 26.4 L MCV 91.0 MCH 30.0 MCHC 33.0 RDW 15.6 Plt Count 171 MPV 10.0 Immature Gran % (Auto) Neut % (Auto) Lymph % (Auto) Wayne % (Auto) Eos % (Auto) Baso % (Auto) Lymph # (Auto) Wayne # (Auto) Eos # (Auto) Baso # (Auto) Abs Immat Gran (auto) Absolute Neuts (auto) Absolute Nucleated RBC 0.000 Nucleated RBC % (auto) 0.0 Smear Path Review PT 13.0 INR 1.1 Whole Blood INR Sodium Potassium Chloride Carbon Dioxide Anion Gap BUN Creatinine Estim Creat Clear Calc Estimated GFR Random Glucose Calcium Magnesium Troponin I High Sens Procalcitonin Urine Color Yellow Urine Appearance Clear Urine pH 6.0 Ur Specific Hitch[place] 1.010 Urine Protein Negative Urine Glucose (UA) Negative Urine Ketones Negative Urine Blood Negative Urine Nitrite Negative Ur Leukocyte Esterase Trace H Urine RBC 0-2 Urine WBC 0-5 Ur Squamous Epith Cells 0-2 Urine Bacteria None Seen Hyaline Casts 0-2 COVID-19 (TIARA) COVID-19 [facility] Com Blood Type Antibody Screen Crossmatch 06/27/22 06/27/22 06:03 06:03 WBC 7.6 RBC 2.78 L Hgb 8.3 L Hct 25.8 L MCV 92.8 MCH 29.9 MCHC 32.2 RDW 16.3 H Plt Count 176 MPV 10.2 Immature Gran % (Auto) Neut % (Auto) Lymph % (Auto) Wayne % (Auto) Eos % (Auto) Baso % (Auto) Lymph # (Auto) Wayne # (Auto) Eos # (Auto) Baso # (Auto) Abs Immat Gran (auto) Absolute Neuts (auto) Absolute Nucleated RBC 0.000 Nucleated RBC % (auto) 0.0 Smear Path Review PT INR Whole Blood INR Sodium 142 Potassium 3.6 Chloride 107 Carbon Dioxide 24 Anion Gap 15 BUN 14 Creatinine 0.70 Estim Creat Clear Calc 69.3 Estimated GFR > 60 Random Glucose 91 Calcium 8.1 L Magnesium 1.7 Troponin I High Sens Procalcitonin Urine Color Urine Appearance Urine pH Ur Specific [place] Urine Protein Urine Glucose (UA) Urine Ketones Urine Blood Urine Nitrite Ur Leukocyte Esterase Urine RBC Urine WBC Ur Squamous Epith Cells Urine Bacteria Hyaline Casts COVID-19 (TIARA) COVID-19 Clin Com Blood Type Antibody Screen Crossmatch Airway Mallampati Class: II TM Dist: >3cm Neck ROM: Limited Heart: rrr Lungs: cta Assessment and Plan Assessment Anesthesia Assessment: Anesthesia Plan Discussed and Chart Reviewed Final Anesthetic Review Family History of Problems with Anesthesia: No History of Problems with Anesthesia: No ASA Class: IV Final Preanesthetic Review: No Changes in Pt Med Stat, Meds/Allgs Chart Reviewed, Consent Obtained/Reviewed and Anes Risks/Benef Reviewed Patient Risk: High Procedure Risk: Intermediate Anesthetic Plan Anesthetic Plan: MAC: Disposition: Standard PACU
--- NOTE | 2022-06-27 11:58 | P.PNIM_ITS ---
Subjective Subjective Date of Service: 06/27/22 Interval History: seen and examined this morning follow up for GIB plan for repeat EGD today for bx of gastric mass had some gas/abdominal bloating overnight. resolved at this time Review of Systems Review of Systems: Yes all other systems are reviewed and are negative Constitutional Constitutional: Denies chills and Denies fever(s) Cardiovascular Cardiovascular: Denies chest pain, Denies palpitations and Denies dyspnea Respiratory Respiratory: Denies cough and Denies dyspnea Gastrointestinal Gastrointestinal: Denies abdominal pain Endocrine Endocrine: Denies palpitations Physical Exam Vital Signs: Vital Signs: Last Vital Signs Temp 98.8 F 06/27/22 11:41 Pulse 85 06/27/22 11:41 Resp 19 06/27/22 11:41 BP 134/63 06/27/22 11:41 Pulse Ox 94 06/27/22 11:41 O2 Del Method Room Air 06/27/22 11:41 O2 Flow Rate 2 06/25/22 23:47 BMI result Body Mass Index 27.3 Const: General: cooperative, comfortable, no acute distress, alert and awake Nutritional Appearance: average body habitus Orientation/consciousness: patient oriented x3 Resp: Effort & Inspection: normal respiratory effort and able to speak in complete sentences Cardio: Rate: regular rate GI: Inspection: No distended Palpation (GI): Soft to palpation and nontender Neuro: General: patient oriented x3 and CN's II-XI intact bilaterally Extrem: General: Yes no pedal edema Objective Data Active Medications Acetaminophen (Acetaminophen 325 Mg Tablet) 650 mg PO Q6H PRN PRN Reason: Pain, Mild (Pain Scale 1-3) Amiodarone HCl (Amiodarone Hcl 200 Mg Tablet) 200 mg PO BID [facility] Last Admin: 06/27/22 08:09 Dose: 200 mg Documented By: GINNA Atorvastatin Calcium (Atorvastatin Calcium 10 Mg Tablet) 10 mg PO BEDTIME [facility] Last Admin: 06/26/22 20:44 Dose: 10 mg Documented By: YAYA Cyanocobalamin (Cyanocobalamin (Vitamin B-12) 1,000 Mcg Tablet) 1,000 mcg PO DAILY [facility] Last Admin: 06/27/22 08:09 Dose: 1,000 mcg Documented By: GINNA Diltiazem HCl (Diltiazem Hcl Cd 240 Mg Cap.Er.Deg) 240 mg PO DAILY [facility]; Pro tocol Last Admin: 06/27/22 08:09 Dose: 240 mg Documented By: GINNA Docusate Sodium (Docusate Sodium 100 Mg Capsule) 100 mg PO BID [facility] Last Admin: 06/27/22 08:09 Dose: 100 mg Documented By: GINNA Lactated Ringer's (Lr) 1,000 mls @ 50 mls/hr IVCONT .Q20H [facility] Stop: 06/27/22 18:00 Last Admin: 06/27/22 00:51 Dose: 50 mls/hr Documented By: ROCK Lidocaine (Lidocaine 4 % Patch Adh..Patch) 1 patch TRANSDERMA DAILY [facility]; Protocol Last Admin: 06/27/22 08:10 Dose: 1 patch Documented By: GINNA Ondansetron HCl (Ondansetron Hcl 4 Mg/2 Ml Vial) 4 mg IVPUSH Q8H PRN PRN Reason: Nausea and Vomiting Pantoprazole Sodium (Pantoprazole Sodium 40 Mg/10 Ml Vial) 40 mg IVPUSH BID@0630,1630 [facility] Last Admin: 06/27/22 05:25 Dose: 40 mg Documented By: ROCK Pharmacy Consult (Consult Rx Perform Med Rec) 1 each MISCELLANE ONCE PRN PRN Reason: Consult order Sodium Chloride (0.9 % Sodium Chloride Flush 3 Ml Syringe) 3 ml IVFLUSH QSHIFT [facility] Last Admin: 06/27/22 08:10 Dose: 3 ml Documented By: GINNA Sucralfate (Sucralfate 1 Gm Tablet) 1 gm PO QIDACHS [facility] Last Admin: 06/26/22 20:44 Dose: 1 gm Documented By: YAYA Vitamin D (Cholecalciferol (Vitamin D3) 25 Mcg Tablet) 25 mcg PO DAILY [facility] Last Admin: 06/27/22 08:09 Dose: 25 mcg Documented By: GINNA Labs 06/27/22 06:03 06/27/22 06:03 Labs: Laboratory Results - last 24 hr 06/26/22 06/27/22 06/27/22 10:25 06:03 06:03 MCV 92.8 MCH 29.9 MCHC 32.2 RDW 16.3 H Plt Count 176 MPV 10.2 Absolute Nucleated RBC 0.000 Nucleated RBC % (auto) 0.0 Anion Gap 15 Estim Creat Clear Calc 69.3 Estimated GFR > 60 Random Glucose 91 Calcium 8.1 L Magnesium 1.7 Urine Color Yellow Urine Appearance Clear Urine pH 6.0 Ur Specific Logan 1.010 Urine Protein Negative Urine Glucose (UA) Negative Urine Ketones Negative Urine Blood Negative Urine Nitrite Negative Ur Leukocyte Esterase Trace H Urine RBC 0-2 Urine WBC 0-5 Ur Squamous Epith Cells 0-2 Urine Bacteria None Seen Hyaline Casts 0-2 Microbiology Microbiology Results: Microbiology 06/24/22 12:44 Blood Culture - Preliminary Blood - Venous No growth after 48 hours. 06/24/22 12:44 Blood Culture - Preliminary Blood - Venous No growth after 48 hours. Assessment and Plan (1) Acute gastrointestinal bleeding: Status: Acute Plan 77yo F with recently diagnosed and cardioverted AF on apixaban, HOCM, hx Sevilla's esophagus, history of bleeding gastric ulcer + AVMs requiring transfusion in 02/11 and 11/12, vit 12 deficiency admitted for anemia, melena, AF/RVR # 1.5 cm suspicious ulcerated proximal gastric mass - EGD done 06/24/[address] Herrera - not bleeding, not biopsied due to taking apixaban 06/23/22, will repeat EGD with biopsies 06/27/22 - continue IV PPI, sucralfate # acute GI blood loss anemia - transfused 2u pRBCs with appropriate rise in H+H - apixaban stopped, given 10mg vit K # AF/RVR back in sinus - continue amiodarone, diltiazem - hold apixaban - Cardiology consulted # leukocytosis - suspect due to recent steroids + PNA resolved # chronic WES - FeSO4 # B12 deficiency - repletion # HLD - continue statin # VTE ppx: SCDs # dispo: PT eval done, anticipate home with VNA eventually, likely tomorrow attending - dr. Olivera In my clinical judgment, the patient requires continued inpatient hospitalization for the following reasons: anemia due to GI blood loss, endoscopic evaluation Time Spent With Patient Time: Total time managing care of this patient today ____ minutes. Quality Stroke Does the patient have a stroke diagnosis?: No VTE Prior VTE?: No VTE Risk Level:: Medical - moderate - high VTE Device Contraindication: N/A - Device Ordered VTE Drug Contraindication: Treatment Not Indicated
--- NOTE | 2022-06-27 13:53 | PM.OP ---
Brief Operative Note Date of Service: 06/27/22 Pre-op diagnosis: UGI Bleed, Gastric mass Post-op diagnosis: other (Same, Gastric mass, Gastric polyps, Hiatal hernia) Procedure: EGD with biopsies Surgeon: Emiliano Herrera Anesthesia: MAC Was an Coverstitch Elastic Attacher used for this Procedure?: No Estimated blood loss (mL): 4.0 Pathology: other (A. Proximal gastric mass) Condition: stable Disposition: PACU
--- NOTE | 2022-06-27 13:55 | PM.EVENT ---
Event Note Date of Service: 06/29/22 Event Note: GI-EGD with biopsies-Full note dictated Findings: 1. Approx 12mm very proximal gastric polypoid lesion. This looked less ulcerated and less suspicious than on 06/24. It was friable, erythematous, and fairly soft---biopsied x 4. There was no active bleeding. 2. Multiple gastric polyps 3. Hiatal hernia 4. Known segment of Sevilla's esophagus from 30-36cm Imp: Proximal gastric polypoid lesion, biopsied x 4 Rec: Check path. Change to po PPI tomorrow if stable. Carafate suspension while in the hospital, then D/C on Carafate tablets QID. F/U CBC tomorrow. Full liquids today and Regular diet tomorrow if stable. Continue to hold Eliquis. If path is negative for anything worrisome or suspicious we could then probably hold off on a repeat EGD. Time Spent With Patient Time: Total time managing care of this patient today ____ minutes.
[2022-06-27] MEDS: Sucralfate Oral Suspension 1 GM/10 ML ORAL.SUSP PO ×2 (16:10→19:42)
[2022-06-27] MEDS: Atorvastatin Calcium 10 MG TABLET PO (19:42)
--- NOTE | 2022-06-28 01:32 | OP_ITS ---
DATE OF SERVICE: 06/27/2022 SURGEON: Emiliano Herrera MD INDICATIONS: The patient presents for evaluation of a known possible proximal gastric polypoid lesion and previous upper GI bleeding. Full consent has been obtained from her for this, including risks of bleeding and perforation. PREOPERATIVE DIAGNOSIS: POSTOPERATIVE DIAGNOSIS: PROCEDURE PERFORMED: Esophagogastroduodenoscopy with biopsies. ESTIMATED BLOOD LOSS: COMPLICATIONS: ANESTHESIA: Monitored anesthesia care. ASSISTANTS: SPECIMENS: PREOPERATIVE DIAGNOSES: Proximal gastric polypoid lesion and previous upper gastrointestinal bleeding. POSTOPERATIVE DIAGNOSES: Proximal gastric polypoid lesion and previous upper gastrointestinal bleeding, gastric polyps, hiatal hernia, Sevilla's esophagus. DESCRIPTION OF PROCEDURE: The patient was placed in the left lateral decubitus position. The Olympus video gastroscope was passed in the posterior oropharynx and upper esophagus under direct vision. The scope was passed slowly to the distal esophagus. The gastroesophageal junction appeared at 36 cm. Extending from 30 cm was the segment of her known Sevilla's esophagus. There was no esophagitis nor any lesions noted. The scope was entered into the stomach. There was moderate sized hiatal hernia. Scope was advanced to the pylorus and the duodenum was cannulated to the descending portion. The duodenum including the bulb appeared normal without mass or ulceration. There was no bleeding. The scope was then drawn back in the stomach. The gastric antrum and body appeared normal with good peristalsis. There was no blood in the stomach. The scope was retroflexed visualizing the proximal stomach carefully, which revealed her known multiple hyperplastic appearing gastric polyps. However, in the very proximal stomach was her known polypoid lesion. This was erythematous and somewhat soft when probed with a biopsy forceps. It was somewhat friable. However, overall it definitely look better than it did several days ago with less ulceration and not looking anywhere near as suspicious for a neoplasm. The lesion was actually seen best in the retroflexed position, but biopsies were best obtained in the forward-viewing position. Multiple biopsies were obtained from it. Again, it felt soft, and was somewhat friable. The scope was then withdrawn back in the esophagus. The scope was withdrawn from the patient. She tolerated the procedure well and was returned to the recovery area in stable condition. IMPRESSION: 1. Proximal gastric polypoid lesion, status post biopsy. 2. Gastric polyps. 3. Hiatal hernia. 4. Sevilla's esophagus. PLAN: The results of the biopsies will be checked. If stable, her diet can be advanced by tomorrow. If stable, her IV PPI can be changed to oral omeprazole tomorrow. I will continue Carafate suspension while in the hospital and then she will need to be discharged on Carafate as well. Many times the insurance will not cover the suspension, so I will discharge her on the Carafate tablets 4 times a day and instructed her to make it into a slurry with a small amount of water. She should take that before every meal. She should continue to hold Eliquis and all blood thinners. If the pathology is negative for anything worrisome or suspicious, we could then probably hold off on any repeat endoscopies given its appearance today. If things are stable, then her Eliquis could be resumed in 2 weeks if necessary. But I would recommend she continue the omeprazole and the Carafate on a senior living basis. This has been discussed with her significant other. MD JUDY Patel/MARGARET / [phone] MTDD
[2022-06-28 02:44] VITALS: BP 109/56; PULSE 65; RESP 20; TEMP 36.1; O2SAT 93
[2022-06-28] MEDS: Omeprazole 40 MG CAPSULE.DR PO (06:27)
[2022-06-28 06:50] LABS: MANUAL DIFF FLAG NO
[2022-06-28 06:54] LABS: Basophils Absolute Auto 0.1 X10*3/uL (0.0-0.2); Basophils Percent Auto 0.8 % (0-2); Eosinophils Absolute Auto 0.3 X10*3/uL (0.0-0.4); Eosinophils Percent Auto 3.8 % (0-4); Hematocrit 25.4 % (37.0-47.0); Hemoglobin 8.2 g/dl (12.0-16.0); Imm Gran Abs Auto 0.04 X10*3/uL (0.00-0.03); Imm Gran Pct Auto 0.6 % (0.0-0.4); Lymphocytes Absolute Auto 0.9 X10*3/uL (1.2-4.9); Lymphocytes Percent Auto 12.9 % (20-40); Mean Corpuscular HGB Conc 32.3 g/dl (31.0-35.0); Mean Corpuscular Hemoglobin 30.3 pg (27.0-33.0); Mean Corpuscular Volume 93.7 fL (80.0-98.0); Mean Platelet Volume 10.1 fL (9.4-12.3); Monocytes Absolute Auto 0.5 X10*3/uL (0.1-1.2); Monocytes Percent Auto 8.2 % (2-11); Neutrophils Absolute Auto 4.9 x10*3/uL (2.0-8.3); Neutrophils Percent Auto 73.7 % (45-73); Platelet Count 159 X10*3/uL (160-400); Red Blood Count 2.71 X10*6/uL (4.20-5.50); Red Cell Distribution Width 16.3 % (11.0-16.0); White Blood Count 6.6 X10*3/uL (4.8-10.8)
[2022-06-28 07:06] LABS: Anion Gap 12 (12-20); Blood Urea Nitrogen 11 mg/dL (9-16); Calcium 8.2 mg/dL (8.4-10.2); Carbon Dioxide 26 mmol/L (22-29); Chloride 108 mmol/L (96-108); Creatinine Clr Calc Pharmacy 68.3; Estimated Glomerular Filt Rate > 60; Glucose Fasting 87 mg/dL (60-99); Potassium 3.9 mmol/L (3.3-5.1); Sodium 142 mmol/L (135-145)
[2022-06-28 07:13] VITALS: BP 137/63; PULSE 84; RESP 18; TEMP 36.7; O2SAT 94
[2022-06-28] MEDS: dilTIAZem HCL CD 240 MG CAP.ER.DEG PO (08:11)
[2022-06-28] MEDS: Sucralfate Oral Suspension 1 GM/10 ML ORAL.SUSP PO ×2 (08:11→12:08)
[2022-06-28] MEDS: 0.9 % Sodium Chloride Flush 3 ML SYRINGE IVFLUSH (08:11)
[2022-06-28] MEDS: Cyanocobalamin (Vitamin B-12) 1,000 MCG TABLET 1000 MCG PO (08:11)
[2022-06-28 08:12] VITALS: BP 137/63; PULSE 84; O2SAT 94
[2022-06-28] MEDS: Amiodarone HCL 200 MG TABLET PO (08:12)
[2022-06-28] MEDS: Cholecalciferol (Vitamin D3) 25 MCG TABLET PO (08:12)
[2022-06-28] MEDS: Lidocaine 4 % Patch ADH..PATCH 1 PATCH TRANSDERMA (08:12)
--- NOTE | 2022-06-28 08:56 | HO.POSTANES ---
Post Anesthesia Evaluation Post Anesthesia Evaluation Vital Signs: Vital Signs Temp Pulse Resp BP Pulse Ox O2 Del Method 06/28/22 08:12 84 137/63 94 06/28/22 07:13 98.1 F 84 18 137/63 94 06/28/22 02:44 96.9 F 65 20 109/56 L 93 Room Air 06/27/22 23:54 96.9 F 65 20 107/55 L 93 Room Air Anesthesia: Monitored Mental Status: Awake Pain Control: Satisfactory Nausea/Vomiting: None Hydration: Adequate Anesthesia-Related Issues: No Anes. Related Issues
--- NOTE | 2022-06-28 11:36 | PM.DS ---
DS: Providers Provider Date of Service: 06/28/22 Date of admission: 06/24/22 11:26 Date of discharge: 06/28/22 Primary care physician: Colt Teran MD Consults: 06/24/22 11:31 Consult to Cardiology Routine Consulting Provider: [facility] [place] Cardiovascular Services Reason for consultation: afib rvr, cardiology clearance pre op endoscopy Consult to Gastroenterology Routine Consulting Provider: Emliiano Herrera Reason for consultation: UGIB, anemia 06/24/22 11:46 Consult to Cardiology Stat Consulting Provider: [facility] [place] Cardiovascular Services Reason for consultation: afib Attending physician on discharge: Brittani Pringle Discharging clinician: Chikis Montano DS: Diagnosis Discharge Diagnosis (1) Acute gastrointestinal bleeding: Status: Acute DS: Summary Hospital Course Hospital Course: From H&P on day of admission 77-year-old female with atrial fibrillation anticoagulated with eliquis recently diagnosed during admission from 06/05- for pneumonia, history Sevilla's esophagus, hypertension, history of bleeding gastric ulcer and AVMs requiring multiple blood transfusions in 02/11 and 11/12, osteopenia, hypercholesterolemia, vitamin B12 deficiency, and vitamin-D deficiency presented to the ED for evaluation of melena with her , Ed. Reports a single episode of melena. No associated abd pain, nausea, vomiting, diarrhea, hemetemasis, or hematochezia. Has had constipation. Reports persistent generalized weakness and deconditioning since last admission. Has felt fatigued and reports palpitations. No fevers, chills, sob, padilla, lightheadedness, or chest pain.? On arrival, pt in AFib with RVR, rate 131, improved to 105 with IVF. BP stable. Persistent leukocytosis of 18.9 (was 15.5 on 06/12), without left shift. H/H 6.6/21.2%. PT 16.8, INR 1.4. Renal function baseline, lytes normal. Trop WNL. EKG showing Afib rvr, rate 121no SUMAN or ST depressions. In the ED, given 80mg IV pantoprazole, ordered for 1 unit blood, and 10mg vitamin k. Upper GI bleed/acute blood loss anemia - 1.5 cm suspicious ulcerated proximal gastric mass EGD done 06/24/[address] Herrera - not bleeding, not biopsied due to taking apixaban 06/23/22, EGD with biopsies done 06/27/22. Looked less ulcerated then on previous EGD. Recommend continue po PPI and carafate. Hold Eliquis. Follow up path reports. Hold Eliquis until results of path report return and then determine safety to resume. Does have history of gastric ulcer and AVMs requiring transfusion in the past. Recommend follow up with hand almond blancher for consideration of Watchman device. transfused 2u pRBCs with appropriate rise in H+H. H/H has remained stable. PAF/RVR followed by cardiology. back in sinus. continued on amiodarone, diltiazem. Eliquis on hold as above. Recommend outpatient follow up with cardiology to assess need for Watchman Device given hospitalization for GI bleeding and h/o previous GI bleeding events. Time Spent with Patient Time attestation: Total time managing care of this patient today ____ minutes. Discharge coordination time: Greater than 30 minutes Quality: Safe Use of Opioids Does Pt have an Active Cancer Diagnosis on the Problem List?: No Quality: Stroke Does the patient have a stroke diagnosis?: No Physical Exam Vital Signs: Vital Signs: Last Vital Signs Temp 98.1 F 06/28/22 07:13 Pulse 84 06/28/22 08:12 Resp 18 06/28/22 07:13 BP 137/63 06/28/22 08:12 Pulse Ox 94 06/28/22 08:12 O2 Del Method Room Air 06/28/22 02:44 O2 Flow Rate 6 06/27/22 13:48 BMI result Body Mass Index 27.3 DS: Data Data Completed and Pending Completed studies during hospitalization [Text1]: Procedures Excision of Large Intestine, Via Natural or Artificial Opening Endoscopic, Diagnostic (10/29/21) Inspection of Upper Intestinal Tract, Via Natural or Artificial Opening Endoscopic (10/29/21) Buddhism of Cardiac Rhythm, Single (06/05/22) Transfusion of Nonautologous Red Blood Cells into Peripheral Vein, Percutaneous Approach (10/29/21) Ultrasonography of Heart with Aorta, Transesophageal (06/05/22) Pending studies at discharge: Pending at discharge 06/27/22 13:29 Surgical [PTH] Routine Labs on day of discharge: Laboratory Results - last 24 hr 06/27/22 06/28/22 06/28/22 11:51 06:35 06:35 WBC 6.6 RBC 2.71 L Hgb 8.2 L Hct 25.4 L MCV 93.7 MCH 30.3 MCHC 32.3 RDW 16.3 H Plt Count 159 L MPV 10.1 Immature Gran % (Auto) 0.6 H Neut % (Auto) 73.7 H Lymph % (Auto) 12.9 L Runnels % (Auto) 8.2 Eos % (Auto) 3.8 Baso % (Auto) 0.8 Lymph # (Auto) 0.9 L [place] # (Auto) 0.5 Eos # (Auto) 0.3 Baso # (Auto) 0.1 Abs Immat Gran (auto) 0.04 H Absolute Neuts (auto) 4.9 Absolute Nucleated RBC 0.000 Nucleated RBC % (auto) 0.0 Sodium 142 Potassium 3.9 Chloride 108 Carbon Dioxide 26 Anion Gap 12 BUN 11 Creatinine 0.71 Estim Creat Clear Calc 68.3 Estimated GFR > 60 Fasting Glucose 87 Calcium 8.2 L Blood Type A Positive Antibody Screen NEGATIVE Preliminary micro results at discharge 06/24/22 12:44 Blood Culture - Preliminary Blood - Venous No growth after 48 hours. 06/24/22 12:44 Blood Culture - Preliminary Blood - Venous No growth after 48 hours. Discharge Plan Discharge Anticipated Discharge Date/Time: 06/28/22 11:54 Patient Disposition: Home Health Service Discharge Diagnosis: Gi bleeding atrial fibrillation gastric ulceration Referrals: Colt Teran MD [Primary Care Provider] - 1 Week (call office to schedule follow up appointment) Emiliano Herrera [Physician] - 1 Week Discharge Medications: New sucralfate [Carafate] 1 gram tablet 1 g PO QIDACHS 30 Days Qty: 90 0RF Continued raloxifene 60 mg tablet 60 mg PO DAILY 90 Days Qty: 90 3RF atorvastatin 10 mg tablet 10 mg PO BEDTIME diltiazem HCl 240 mg Capsule,Extended Release 24hr 240 mg PO DAILY Qty: 30 0RF Protocol: Hold for SBP/HR < HOLD for SBP < : 90 HOLD for HR < : 60 amiodarone 200 mg tablet 200 mg PO BID ferrous sulfate 325 mg (65 mg iron) Tablet 325 mg PO BID cholecalciferol (vitamin D3) 25 mcg (1,000 unit) capsule 25 mcg PO DAILY 90 Days Qty: 90 3RF cyanocobalamin (vitamin B-12) [Vitamin B-12] 1,000 mcg tablet 1,000 mcg PO DAILY 90 Days Qty: 90 3RF omeprazole 40 mg capsule,delayed release(DR/EC) 40 mg PO DAILY@0630 Discontinued Eliquis 5 mg Tablet 5 mg PO BID Qty: 60 0RF Discharge Orders: Discharge Order (Routine); Ordered 06/28/22 Ordered By: Chikis Montano Activity on Discharge: As tolerated Stand Alone Forms: Patient Portal Discharge page Care Plan Goals: see below Health Concerns: GI bleeding Gastric lesion atrial fibrillation Plan of Treatment: call to schedule follow up appointment with your hand almond blancher to discuss possibility of Watchman Device for atrial fibrillation. Hold Eliquis until pathology results are back from gastric lesion - to determine safety of resuming anticoagulation take carafate as prescribed, continue taking omeprazole as prescribed Call PCP/return to ED with any recurrent GI bleeding Do not take NSAIDs, such as ibuprofen, naprosyn etc Assessment: see discharge summary
[2022-06-28 11:39] VITALS: BP 97/54; PULSE 69; RESP 17; TEMP 36.6; O2SAT 95
--- NOTE | 2022-06-28 11:56 | P.F2F_ITS ---
Service Date Service Date: 06/28/22 Encounter Date of encounter: 06/28/22 Reasons for Services Signs and symptoms assessed: Needs home PT for therapeutic exercises due to weakness from hospitalization Reason for physical therapy: home safety and mobility and therapeutic exercises Overseeing Care: Colt Teran Homebound: Leaving the home is medically contraindicated at this time without the asist of a device and/or another person due th the listed conditions above and below. Reason homebound: unsteady gait / fall risk and weakness related to hospital stay Certification: Based on the above findings, I certify that this patient is confined to the home and needs intermittent custodial care, physical therapy and/or speech therapy, or continues to need occupational therapy. The patient is under my care, and I have initiated the establishment of the plan of care. The patient will be followed by a physician who will periodically review the plan of care. Time Spent With Patient Time: Total time managing care of this patient today ____ minutes.
--- NOTE | 2022-06-28 12:23 | MHC.CM.PN ---
DP: PT HAS BEEN MEDICALLY CLEARED FOR DC HOME WITH NEW [facility] SERVICES FOR PT. RN AWARE. S/O TO TRANSPORT
--- NOTE | 2022-09-05 17:31 | P.CDIM_ITS ---
PROVIDER RESPONSE TEXT: To clarify, the appropriate diagnosis supported by the clinical indicators: Other (explain): gastric ulcer, acute. no active bleeding seen at time of EGD but likely cause of GI bleeding QUERY TEXT: PHYSICIAN'S DOCUMENTATION REQUEST Date of Query: 09/03/2022 06:46 AM EDT Patient Name: Sulema Parks Admit Date: 06/24/2022 Dear Chikis Montano, A review of the medical record indicates additional documentation may be needed. Please review below and update the documentation accordingly. Clinical Indicators: Per Event note 06/25/22: ulcerated proximal gastric lesion Per Discharge Summary 06/28/22: Discharge Diagnosis Acute gastrointestinal bleeding Clarify which of the following accurately represents the acuity of the Gastric Ulcer. Possible options might include: Acute Gastric Ulcer with bleeding Acute on chronic Gastric Ulcer with bleeding Compensated Chronic stable condition Other (explain)Clinically unable to determine (explain)Thank you, Ida Kilgore RN Use of terms such as suspected, likely, concern for, or probable (associated with a specific diagnosi s that is being evaluated, monitored, or treated as if it exists) are acceptable and can be coded in the inpatient se tting, when documented at the time of discharge. Please use your independent medical judgment in providing your response. THIS QUERY IS PART OF THE PERMANENT MEDICAL RECORD
== END 2022-06-28 13:48 | disposition home health service (06) | DRG 254 ==
LOC: HO.ED 11:04 → HO.EDOVER 11:34 → HO.IMC 11:52
PROVIDERS: Family Medicine; Internal Medicine; Admitting Provider Physician Assistant; Emergency Provider Emergency Medicine; PCP Internal Medicine; Visit Provider Physician Assistant Medical
PROC: 0DJ08ZZ Inspection of Upper Intestinal Tract, Via Natural or Artificial Opening Endoscopic (ICD-10-PCS; CPT 43235; principal; 2022-06-24 15:30)
DX: K31.7 Polyp of stomach and duodenum (principal); I48.0 Paroxysmal atrial fibrillation; K25.0 Acute gastric ulcer with hemorrhage; I42.2 Other hypertrophic cardiomyopathy; D62 Acute posthemorrhagic anemia; Z66 Do not resuscitate; E78.00 Pure hypercholesterolemia, unspecified; E53.8 Deficiency of other specified B group vitamins; K22.70 Barrett's esophagus without dysplasia; K44.9 Diaphragmatic hernia without obstruction or gangrene; Z20.822 Contact with and (suspected) exposure to COVID-19; Z79.01 Long term (current) use of anticoagulants; Z88.8 Allergy status to other drugs, medicaments and biological substances; Z79.899 Other long term (current) drug therapy
CPT/HCPCS: 36415; 71045; 80048; 81001; 83735; 84145; 84484; 85025; 85027; 85610; 86850; 86900; 86901; 86923; 87040; 87635; 88305; 88342; 93005; 97110; 97116; 97162; 99285; J1940; J3010; J3430; P9016

== ENCOUNTER → 2022-07-11 10:47 | Outpatient (REF) | payer BC, SELFPAY ==
--- NOTE | 2022-07-11 10:50 | CA_ITS ---
Transthoracic Echocardiogram Patient (Last, First, Middle): Sulema Parks, Gender: Female Date of : 1945 Age: 77 Procedure Date: 07/11/2022 Procedure Type: Transthoracic Echocardiogram Location: OP Height: 167.64 cm Weight: 74.39 kg BSA: 1.84 m2 Heart Rate: bpm BP: 176 / 80 mmHg Plate Corrector: TO Referring MD: Gaurav Aparicio MD Symptoms: R01.1 - Cardiac murmur, unspecified Study Quality: Technically Difficult/Cointrast ECG Rhythm: Sinus Conclusions: - The left ventricular systolic function is hyperdynamic. The visually estimated ejection fraction is >70%. - In some views, basal to mid inferior/inferolateral galdamez appear akinetic, but not definitive. - Peak gradient across the LVOT 41 mm Hg. - Evidence suggests grade II (moderate) diastolic dysfunction. - The left atrium is severely dilated. Findings Procedure Information Contrast agent, definity, is being given per protocol without apparent complications. Left Ventricle Normal left ventricular cavity size. There is severely increased left ventricular wall thickness. The left ventricular systolic function is hyperdynamic. The visually estimated ejection fraction is >70%. E/E prime ratio is >15, consistent with elevated filling pressures. Evidence suggests grade II (moderate) diastolic dysfunction. Peak gradient across the LVOT 41 mm Hg. With Valsalva, 59 mm Hg. In some views, basal to mid inferior/inferolateral galdamez appear akinetic, but not definitive. Right Ventricle Normal right ventricular cavity size and systolic function. Atria The left atrium is severely dilated. The right atrium is normal in size. Aortic Valve There is mild calcification of the aortic valve. There is no aortic valve regurgitation. Gradients across aortic valve elevated which could be because of hyperdynamic state. Doubt any hemodynamically significant aortic stenosis. Mitral Valve There is mild mitral annular calcification. There is mild mitral valve regurgitation. There is no mitral valve stenosis. Pulmonic Valve The pulmonic valve is likely normal. Tricuspid Valve There is mild tricuspid valve regurgitation. There is no evidence of pulmonary hypertension. Great Vessels The asc aorta is normal in size. Venous The inferior vena cava is normal in size and collapses greater than 50% with inspiration. Pericardium/Pleural There is no evidence of pericardial effusion. Prior Study Comparison No significant change compared to prior study dated: 06/11/2022. Measurements 2D Linear Measurements IVSd: 1.49 0.6-0.9/0.6-1.0 cm LVIDd: 3.68 3.9-5.3/4.2-5.9 cm LVIDd Index: 2.00 2.4-3.2/2.2-3.1 cm/m2 LVIDs: 2.10 2.0-3.6 cm LVPWd: 1.07 0.7-1.1 cm LA Diam: 4.20 2.7-3.8/3.0-4.0 cm LAIDs Index: 2.28 1.5-2.3 cm/m2 LV Mass: 200.86 67-162/88-224 g LV Mass Index: 109.16 43-95/49-115 g/m2 LVOT Diam: 1.90 3.0+(-)1.3 cm 2D Systolic Function EF 4C: 79.80 >55% Mitral Valve MV VTI: 0.46 MV Pk [place]: 1.16 MV Mn [place]: 0.67 MV Pk Grad: 5.00 MV Mn Grad: 2.00 MV Pk E: 1.05 MV PK A: 1.00 MV Decel Time: 290.00 E/A: 1.10 E'Lateral: 5.55 E'Medial: 4.46 E/E' Med: 23.50 E/E' Lat: 18.90 PHT: 85.00 MVA PHT: 2.59 MVA Continuity: 4.49 Decel [place]: 3.62 Aortic Valve AoV Pk [place]: 3.09 AoV Mn [place]: 2.31 AoV VTI: 0.79 AoV Pk Grad: 38.00 Aov Mn Grad: 24.00 SHAHBAZ Cont.VTI: 2.61 LVOT LVOT Pk [place]: 3.00 LVOT Mn [place]: 2.13 LVOT VTI: 0.73 LVOT Pk Grad: 36.00 LVOT Mn Grad: 20.00 LVOT Diam: 1.90 LVOT Area: 2.84 Diastolic Function MV Pk E: 1.05 MV Pk A: 1.00 E/A: 1.10 E'Medial: 4.46 E/E' Med: 23.50 E' Laterial: 5.55 E/E' Lat: 18.90 Right Ventricle TAPSE (mm): 21.70 TVS' [place]: 11.30 Tricuspid Valve TR Pk [place]: 2.85 TR Pk Grad: 32.00 RA Press: 3.00 RVSP: 35.00 Great Vessels Aorta Sinus of Valsalva: 2.74 2.0-3.[address] [place]: 2.26 1.7-3.4 cm Ao Asc: 3.00 2.1-3.4 cm Updated in Other Vendor System with Status of Final Alvaro Hayward MD electronically signed on 07/13/2022 11:43:06 AM with status of Final
--- NOTE | 2022-07-11 10:50 | HM_ITS ---
Conclusion: 1. Patient was monitored for total period of 3 days 2. Baseline was normal sinus with average heart of 60 beats per minute 3. No significant pauses noted with frequent sinus bradycardia, 55% of time heart rate below 60 beats per minute 4. No sustained atrial fibrillation noted 5. Total of 14,915 PACs accounting for 5.7% of total beats account for frequent PACs 6. No patient reported symptoms MTDD
== END ==
LOC: HO.CARD 10:47
PROVIDERS: Absent Provider Internal Medicine Cardiovascular Disease; PCP Internal Medicine; Visit Provider Internal Medicine Cardiovascular Disease
DX: I48.91 Unspecified atrial fibrillation (principal); R01.1 Cardiac murmur, unspecified; I10 Essential (primary) hypertension
CPT/HCPCS: 93242; 93306; Q9957

== ENCOUNTER 2022-07-15 09:57 | Outpatient (REF) | payer BC, SELFPAY ==
[2022-07-15 10:23] LABS: MANUAL DIFF FLAG NO
[2022-07-15 11:44] LABS: Basophils Absolute Auto 0.1 X10*3/uL (0.0-0.2); Basophils Percent Auto 0.6 % (0-2); Eosinophils Absolute Auto 0.3 X10*3/uL (0.0-0.4); Hematocrit 35.3 % (37.0-47.0); Imm Gran Abs Auto 0.05 X10*3/uL (0.00-0.03); Imm Gran Pct Auto 0.5 % (0.0-0.4); Lymphocytes Absolute Auto 0.9 X10*3/uL (1.2-4.9); Lymphocytes Percent Auto 9.5 % (20-40); Mean Corpuscular HGB Conc 31.2 g/dl (31.0-35.0); Mean Corpuscular Hemoglobin 27.6 pg (27.0-33.0); Mean Corpuscular Volume 88.5 fL (80.0-98.0); Mean Platelet Volume 10.4 fL (9.4-12.3); Monocytes Absolute Auto 0.6 X10*3/uL (0.1-1.2); Monocytes Percent Auto 6.7 % (2-11); Neutrophils Absolute Auto 7.7 x10*3/uL (2.0-8.3); Neutrophils Percent Auto 79.7 % (45-73); Platelet Count 328 X10*3/uL (160-400); Red Blood Count 3.99 X10*6/uL (4.20-5.50); Red Cell Distribution Width 14.7 % (11.0-16.0); White Blood Count 9.6 X10*3/uL (4.8-10.8)
== END 2022-07-15 09:58 | disposition home or self-care (01) ==
LOC: HO.LAB 09:57
PROVIDERS: PCP Internal Medicine; Referring Provider Internal Medicine; Visit Provider Internal Medicine
DX: D62 Acute posthemorrhagic anemia (principal)
CPT/HCPCS: 36415; 85025

== ENCOUNTER → 2022-07-19 12:56 | Outpatient (BNVA) | payer BC, SELFPAY | PROVIDERS: PCP Internal Medicine; Referring Provider Internal Medicine; Visit Provider Nurse Practitioner Family | DX: Z13.89 Encounter for screening for other disorder (principal) ==

== ENCOUNTER 2022-08-20 07:49 | Outpatient (REF) | payer BC, SELFPAY ==
[2022-08-20 08:08] LABS: MANUAL DIFF FLAG NO
[2022-08-20 08:21] LABS: Basophils Absolute Auto 0.1 X10*3/uL (0.0-0.2); Basophils Percent Auto 0.8 % (0-2); Eosinophils Absolute Auto 0.3 X10*3/uL (0.0-0.4); Eosinophils Percent Auto 3.9 % (0-4); Hematocrit 40.6 % (37.0-47.0); Hemoglobin 12.8 g/dl (12.0-16.0); Imm Gran Abs Auto 0.04 X10*3/uL (0.00-0.03); Imm Gran Pct Auto 0.5 % (0.0-0.4); Lymphocytes Absolute Auto 1.2 X10*3/uL (1.2-4.9); Mean Corpuscular HGB Conc 31.5 g/dl (31.0-35.0); Mean Corpuscular Hemoglobin 27.9 pg (27.0-33.0); Mean Corpuscular Volume 88.5 fL (80.0-98.0); Mean Platelet Volume 9.9 fL (9.4-12.3); Monocytes Absolute Auto 0.7 X10*3/uL (0.1-1.2); Neutrophils Absolute Auto 5.6 x10*3/uL (2.0-8.3); Neutrophils Percent Auto 70.8 % (45-73); Platelet Count 252 X10*3/uL (160-400); Red Blood Count 4.59 X10*6/uL (4.20-5.50); Red Cell Distribution Width 15.4 % (11.0-16.0); White Blood Count 7.9 X10*3/uL (4.8-10.8)
[2022-08-20 09:16] LABS: Appearance Urine Clear; Color Urine Yellow; Glucose Urine UA Negative (Negative); Leukocyte Esterase Urine Small (1+) (Negative); Nitrite Urine Negative (Negative); PH 6.5 (5.0-9.0); Specific Gravity - Urine 1.015 (1.005-1.025); UMIC TRIGGER UACC YES; Urine Blood Negative (Negative); Urine Ketones Negative (Negative); Urine Protein Negative (Neg-Trace)
[2022-08-20 09:27] LABS: Bacteria Urine Trace (None Seen); Hyaline Casts Urine 0-2 /LPF (0-2); RBC Urine 0-2 /HPF (0-2); Squamous Epithelial Cell Urine 0-2 /HPF (0-2); UACC Culture Trigger YES; WBC Urine 0-5 /HPF (0-5)
[2022-08-20 09:27] LABS: Alanine Aminotransferase 21 U/L (0-31); Albumin Level 3.7 g/dL (3.5-5.0); Alkaline Phosphatase 47 U/L (39-117); Anion Gap 11 (12-20); Aspartate Amino Transferase 21 U/L (5-31); Bilirubin Total 0.5 mg/dL (0.0-1.0); Blood Urea Nitrogen 15 mg/dL (9-16); Calcium 9.2 mg/dL (8.4-10.2); Carbon Dioxide 28 mmol/L (22-29); Chloride 105 mmol/L (96-108); Cholesterol 152 mg/dL; Estimated Glomerular Filt Rate > 60; Glucose Fasting 86 mg/dL (60-99); HDL Cholesterol 42 mg/dL; LDL Cholesterol Calculated 91 mg/dl; Potassium 3.9 mmol/L (3.3-5.1); Sodium 140 mmol/L (135-145); Total Protein 6.4 g/dL (6.5-8.0); Triglycerides 98 mg/dL
[2022-08-20 10:00] LABS: Folate 8.8 ng/mL (> or = 4.0); TSH reflex Free T4 4.57 uIU/mL (0.32-4.0); Vitamin B12 1116 pg/mL (200-900); Vitamin D 25-OH Total 52.5 ng/mL (>30)
[2022-08-20 11:00] LABS: Free T4 (Free Thyroxine) 1.01 ng/dL (0.71-1.85)
== END 2022-08-20 07:50 | disposition home or self-care (01) ==
LOC: HO.LAB 07:49
PROVIDERS: PCP Internal Medicine; Visit Provider Internal Medicine
DX: I10 Essential (primary) hypertension (principal); E53.8 Deficiency of other specified B group vitamins; E55.9 Vitamin D deficiency, unspecified; E78.00 Pure hypercholesterolemia, unspecified; R82.90 Unspecified abnormal findings in urine
CPT/HCPCS: 36415; 80053; 80061; 81001; 82306; 82607; 82746; 84439; 84443; 85025; 87086

== ENCOUNTER 2022-08-22 10:03 | Outpatient (REF) | payer BC, SELFPAY ==
--- NOTE | ~2022-08-22 | MM_ITS ---
EXAMINATION: MM SCREENING DIGITAL BREAST TOMOSYNTHESIS, BILATERAL CLINICAL INFORMATION: Screening. Asymptomatic. The lifetime risk of breast cancer based on the Tyrer-Cuzick Model is 4%. COMPARISON: Mammography: 08/16/2021, 08/15/2020, 04/22/2019 TECHNIQUE: Digital breast tomosynthesis is performed in both the craniocaudal and mediolateral oblique views along with computer-aided detection (CAD). Synthesized 2D images are generated from the tomosynthesis. FINDINGS: There are scattered areas of fibroglandular density (ACR BI-RADS breast composition Category b). There are no significant masses, abnormal calcifications, or other abnormalities. Parenchymal pattern is similar to prior studies. There is no developing density or architectural abnormality. The axilla and skin contours are unremarkable. No significant changes. MM/MM tomosynthesis screening BI IMPRESSION: No mammographic evidence of malignancy. ASSESSMENT: BI-RADS 1: Negative RECOMMENDATION: Routine annual mammography screening. This patient's information was entered into a reminder system with a target due date for their next mammogram.
== END 2022-08-22 10:04 | disposition home or self-care (01) ==
LOC: HO.MAMMO 10:03
PROVIDERS: PCP Internal Medicine; Visit Provider Internal Medicine
DX: Z12.31 Encounter for screening mammogram for malignant neoplasm of breast (principal)
CPT/HCPCS: 77063; 77067

== ENCOUNTER 2022-08-28 14:01 | Outpatient (AMB) | payer BC, SELFPAY ==
--- NOTE | 2022-08-28 14:09 | A.OFFPC_ITS ---
Vital Signs 08/28/22 14:10 Height 5 ft 6 in Weight 159 lb BMI 25.7 BP 132/72 Blood Pressure Location Lt brachial Position Sitting Pulse 71 Pulse Source Pulse Oximeter Pulse Oximetry (%) 97 Oxygen Delivery Method Room Air Intake Visit Reasons: HTN, hyperlipidemia Intake Note: Patient is here for a follow up; HTN and hyperlipidemia. Consumer Product Advisor Required: No Accompanied by: Self / Same As Patient Allergies enflurane [ENFLURANE] Allergy (Severe, Verified 01/01/23 14:48) Per Patient Liver toxicity piperacillin [Zosyn] Allergy (Severe, Verified 01/01/23 14:48) Rash tazobactam [Zosyn] Allergy (Severe, Verified 01/01/23 14:48) Rash Medication List - Last Reconciled 08/28/22 by Colt Teran MD amiodarone 200 mg PO BID 90 days atorvastatin 10 mg PO DAILY cholecalciferol (vitamin D3) 25 mcg PO DAILY 90 days cyanocobalamin (vitamin B-12) (Vitamin B-12) 1,000 mcg PO DAILY 90 days diltiazem HCl 240 mg See Protocol PO DAILY 90 days ferrous sulfate 325 mg PO BID [FRONT-WHEELED WALKER As directed ; Ht = 5'6 ; Wt = 164 lbs; Rx is for INDEFINITE/PERMANENT/FOREVER/LIFETIME USE] lorazepam 0.5 mg PO BID PRN omeprazole 40 mg PO DAILY@0630 raloxifene 60 mg PO DAILY 90 days [SHOWER CHAIR As directed; Rx is for INDEFINITE/PERMANENT/FOREVER/LIFETIME USE] sucralfate (Carafate) 1 g PO QIDACHS 30 days Tobacco use date assessed: 08/28/22 Fall risk assessment: No Falls in past year HPI HTN, hyperlipidemia HPI Details Patient comes in today for her follow up visit States that she feels okay She denies any headaches or dizziness Denies any chest pains, no SOB No nausea/vomiting, no abdominal pain No change in bowel habits noted Had her follow up labs done last week - to discuss her results [facility] Medical History Afib Hypertrophic cardiomyopathy Atrial fibrillation with RVR Anemia Gastric ulcer History of blood transfusion Vitamin B12 deficiency Overweight (BMI 25.0-29.9) Primary osteoarthritis of hand Vitamin D deficiency Osteopenia Anemia Cardiac murmur Hiatal hernia Sevilla's esophagus Benign essential hypertension Pure hypercholesterolemia Surgical History History of esophagogastroduodenoscopy (EGD) History of appendectomy History of hysterectomy Family History Father Hypertension Mother Stroke Social History Household Members: Spouse Housing: House Do you presently have visiting nurse or other home services: No Alcohol intake: never Patient Tobacco Use Status: Never used Tobacco e-Cigarette/Vaping Use: Never Used Second Hand Smoke Exposure: No Advance Directives Date on File: 01/22/21 service: No Current occupational status: retired Cognitive needs: No Hearing needs: No Vision needs: Yes (glasses) Questionnaire PHQ-9 Over the last 2 weeks, how often have you been bothered by any of the following problems? 1. Little interest or pleasure in doing things: not at all 2. Feeling down, depressed, or hopeless: not at all 3. Trouble falling or staying asleep, or sleeping too much: not at all 4. Feeling tired or having little energy: not at all 5. Poor appetite or overeating: not at all 6. Feeling bad about yourself - or that you are a failure or have let yourself or your family down: not at all 7. Trouble concentrating on things, such as reading the newspaper or watching television: not at all 8. Moving or speaking so slowly that other people could have noticed. Or the opposite - being so fidgety or restless that you have been moving around a lot more than usual: not at all 9. Thoughts that you would be better off or of hurting yourself in some way: not at all Total score: 0 Depression Screening Interpretation: Negative 69297 - PHQ-9 Billing: Yes Source: Developed by Drs. Emiliano Ferrari, Laura Barlow, Nico Ely and colleagues, with an educational florentino from [employer]. Thrive Questionnaire Date Thrive assessed: 08/28/22 I am a: Patient What is your living situation today?: I have a steady place to live Within the past 12 months, did the food you bought not last and you didn't have the money to get more?: Never true Within the past 12 months, did you worry whether your food would run out before you got money to buy more?: Never true Do you have trouble paying for medicines?: Yes Do you have trouble getting transportation to medical appointments?: Yes Do you have trouble paying your heating and electricity bill?: Yes Do you have trouble taking care of your child, family member or friend?: Yes Do you have trouble with day-to-day activities such as bathing, preparing meals, shopping, managing finances, etc.?: Yes Are you currently unemployed and looking for a job?: Yes Are you interested in more education?: Yes Currently or been in a relationship where the following occur: no concerns reported AUDIT C Alcohol Use Questionnaire (AUDIT-C) 1. How often do you have a drink containing alcohol?: Never 3. How often do you have six or more drinks on one occasion?: Never Total Score: 0 Score Reviewed/Action Taken: Yes JULIA-7 AMB Questionnaire JULIA-7 Date JULIA - 7 assessed: 08/28/22 Feeling nervous, anxious, or on edge: 3 = Nearly every day Not being able to stop or control worryin = Several days Worrying too much about different things: 2 = More than half the days Trouble relaxin = More than half the days Being so restless that it is hard to sit still: 0 = Not at all Becoming easily annoyed or irritable: 0 = Not at all Feeling afraid as if something awful might happen: 1 = Several days Total JULIA-7 score (0-4 normal; 5-9 mild; 10-14 moderate; 15-21 severe): 9 Source: Developed by Drs. Emiliano Ferrari, Laura Barlow, Nico Ely and colleagues, with an educational florentino from [employer]. JULIA-7 Assessment Billing JULIA-7 Assessment Tool: JULIA-7 Assessment 16470 Review of Systems Const Denies fatigue, Denies fever(s) and Denies headache(s) ENT Denies dysphagia, Denies dizziness, Denies otalgia, Denies headache(s), Reports hearing loss, Denies neck pain, Denies odynophagia and Denies sore throat Card Denies chest pain, Denies palpitations and Denies dyspnea Resp Denies cough and Denies dyspnea GI Denies abdominal pain, Denies constipation, Denies dysphagia, Denies heartburn, Denies diarrhea, Denies nausea, Denies odynophagia and Denies vomiting Denies difficulty voiding, Denies nocturia and Denies dysuria Musc Denies neck pain Skin/Breast Denies rash Neuro Denies dizziness and Denies headache(s) Endo Denies fatigue and Denies palpitations Physical exam (Primary Care) Vital Signs: Last Vital Signs Pulse 71 08/28/22 14:10 BP 132/72 08/28/22 14:10 Pulse Ox 97 08/28/22 14:10 Oxygen Delivery Method Room Air 08/28/22 14:10 BMI result Body Mass Index 25.7 Tobacco/Smoking Status: Tobacco use Status Tobacco use date assessed 08/28/22 08/28/22 14:17 Patient Tobacco Use Status Never used Tobacco 08/28/22 14:17 e-Cigarette/Vaping Use Never Used 08/28/22 14:17 PHQ-9: PHQ-9 Score PHQ-9: Total score 0 08/28/22 15:01 Depression Screening Interpretation: Negative Thrive Assessment: Date of Thrive Assessment Date Thrive assessed 08/28/22 08/28/22 14:17 Currently or been in a relationship where the following occur: no concerns reported Const General: no acute distress and alert HENMT Throat: Yes posterior oropharynx normal and Yes tonsils normal (no TP congestion) Neck Neck: Yes no lymphadenopathy and Yes supple Resp Auscultation: clear to auscultation bilaterally, no rales and no wheezes Cardio Rate: regular rate Rhythm: regular rhythm Heart sounds: Murmur heart sound present systolic soft, II/ and at the apex GI Palpation (GI): Soft to palpation and nontender Auscultation: normal bowel sounds General: Yes no CVA tenderness Back/Spine/Pelvis Back: no CVA tenderness Skin General skin exam: no rashes or lesions noted Rashes: no rashes Extrem General: Yes no clubbing, cyanosis or edema Results Reviewed Results Reviewed: Laboratory Tests 08/20/22 08/20/22 08/20/22 08:03 08:07 08:07 WBC 7.9 Hgb 12.8 Hct 40.6 Plt Count 252 Sodium 140 Potassium 3.9 Creatinine 0.82 Estimated GFR > 60 Fasting Glucose 86 Calcium 9.2 D AST 21 ALT 21 Triglycerides 98 Cholesterol 152 LDL Cholesterol, Calc 91 HDL Cholesterol 42 Vitamin B12 1116 H 25-OH Vitamin D Total 52.5 TSH 4.57 H Free T4 1.01 Ur Specific [place] 1.015 Urine Protein Negative Urine Glucose (UA) Negative Urine Blood Negative Assessment and Plan Assessment & Plan (1) Acute gastrointestinal bleeding: Code(s): K92.2 - Gastrointestinal hemorrhage, unspecified Plan: Currently resolved EGD done on 06/24/22 and 06/27/22 revealed (+) ulcerated gastric mass and Bx on 06/27/22 came out benign - was a hyperplastic mucosal polyp with background mild chronic inactive inflammation with no H pylori Continue Omeprazole 40 mg QD and Carafate 1 gm QID Follow up with GI as scheduled (2) Anemia: Code(s): D64.9 - Anemia, unspecified Qualifiers: Anemia type: other cause Other causes of anemia: acute posthemorrhagic Qualified Code(s): D62 - Acute posthemorrhagic anemia Plan: Resolved - was mostly due to acute GI bleed; she required blood transfusion again during her last hospital admission H/H was normal at 12.8/40.6 on her labs done last week Will continue to monitor her CBC regularly (3) Paroxysmal atrial fibrillation: Code(s): I48.0 - Paroxysmal atrial fibrillation Plan: Patient is currently in sinus rhythm, converted on Amiodarone Continue Amiodarone 200 mg QD Was on Eliquis for thromboembolism prophylaxis but this was discontinued a few months ago due to GI bleeding; patient has not yet resumed Eliquis Will try to start her back on Eliquis but just at 2.5 mg BID for thromboembolism prophylaxis but advised that we can take her off this IF she decided to get a Watchman device placed Continue Dilitiazem ER 240 mg QD Because of her GI bleeding and anemia, she was advised to consider getting a Watchman device to obviate her need for long-term anticoagulation and she will be reaching out to cardiology JUHI to get this scheduled expeditiously Follow up with cardiology (Dr. Funk) as scheduled (4) Benign essential hypertension: Code(s): I10 - Essential (primary) hypertension Plan: Reinforced low sodium diet - goal is systolic BP of at least 130 to 140 mm or less Continue Diltiazem 240 mg QD; was previously on Amlodipine 2.5 mg QD but this was discontinued when she was started on Diltiazem (5) Pure hypercholesterolemia: Code(s): E78.00 - Pure hypercholesterolemia, unspecified Plan: Results of her labs done last week reviewed and discussed with patient Reinforced low cholesterol diet Continue Atorvastatin 10 mg QD Will recheck her labs and fasting lipids in 4 months for follow up (6) Osteopenia: Code(s): M85.80 - Other specified disorders of bone density and structure, unspecified site Qualifiers: Osteopenia location: unspecified Qualified Code(s): M85.80 - Other specified disorders of bone density and structure, unspecified site Plan: Continue Raloxifene 60 mg QD Repeat BMD done on 10/07/2018 showed no significant change in BMD from 04/2014 - w ill continue to monitor every 2 to 3 years Patient encouraged again to continue to stay active and exercise regularly as tolerated (7) Vitamin D deficiency: Code(s): E55.9 - Vitamin D deficiency, unspecified Plan: Continue Vitamin D3 1000 units QD (8) Vitamin B12 deficiency: Code(s): E53.8 - Deficiency of other specified B group vitamins Plan: Continue Vitamin B12 tablets 1000 mcg QD Plan Follow up in 4 months Orders: Orders Lipid Panel 4 Months E78.00 - Pure hypercholesterolemia, unspecified Vitamin D 25-OH Total 4 Months E55.9 - Vitamin D deficiency, unspecified Free T4 (Free Thyroxine) 4 Months R79.89 - Other specified abnormal findings of blood chemistry Complete Blood Count Auto Diff 4 Months I10 - Essential (primary) hypertension Comprehensive [place]. Panel Fast 4 Months E78.00 - Pure hypercholesterolemia, unspecified UA CC w/rflx Micro + Cult 4 Months R30.0 - Dysuria Vitamin B12 and Folate 4 Months E53.8 - Deficiency of other specified B group vitamins Thyroid Stimulating Hormone 4 Months R79.89 - Other specified abnormal findings of blood chemistry Medications: New Eliquis (apixaban) 2.5 mg PO BID 60 tabs 5RF 30 days NS Coding Level of Care Code Est Pt Level 4 (95390) Diagnoses Acute gastrointestinal bleeding K92.2 Anemia due to acute blood loss D62 Anemia type: other cause Other causes of anemia: acute posthemorrhagic Paroxysmal atrial fibrillation I48.0 Benign essential hypertension I10 Pure hypercholesterolemia E78.00 Osteopenia, unspecified location M85.80 Osteopenia location: unspecified Vitamin D deficiency E55.9 Vitamin B12 deficiency E53.8 Additional Codes JULIA-7 Assessment Billing - JULIA-7 Assessment Tool: JULIA-7 Assessment 10709 ([id number])
[2022-08-28 14:10] VITALS: BP 132/72; PULSE 71; O2SAT 97; BMI 25.7
== END 2022-08-28 15:44 | disposition home or self-care (01) ==
LOC: HO.HMGH 14:01
PROVIDERS: PCP Internal Medicine; Visit Provider Internal Medicine
DX: K92.2 Gastrointestinal hemorrhage, unspecified (principal); D62 Acute posthemorrhagic anemia; I48.0 Paroxysmal atrial fibrillation; I10 Essential (primary) hypertension; E78.00 Pure hypercholesterolemia, unspecified; M85.80 Other specified disorders of bone density and structure, unspecified site; E55.9 Vitamin D deficiency, unspecified; E53.8 Deficiency of other specified B group vitamins
CPT/HCPCS: 99214

== ENCOUNTER 2022-10-10 09:45 | Outpatient (REF) | payer BC, SELFPAY | END 2022-10-10 09:46 | disposition home or self-care (01) | LOC: HO.SH 09:45 | PROVIDERS: Visit Provider Internal Medicine | DX: H90.3 Sensorineural hearing loss, bilateral (principal) | CPT/HCPCS: 92550; 92557 ==

== ENCOUNTER 2022-12-17 08:14 | Outpatient (REF) | payer BC, SELFPAY ==
[2022-12-17 08:35] LABS: MANUAL DIFF FLAG NO
[2022-12-17 09:01] LABS: Basophils Percent Auto 0.6 % (0-2); Eosinophils Absolute Auto 0.3 X10*3/uL (0.0-0.4); Eosinophils Percent Auto 4.5 % (0-4); Hematocrit 42.4 % (37.0-47.0); Hemoglobin 13.8 g/dl (12.0-16.0); Imm Gran Abs Auto 0.02 X10*3/uL (0.00-0.03); Imm Gran Pct Auto 0.3 % (0.0-0.4); Lymphocytes Absolute Auto 1.2 X10*3/uL (1.2-4.9); Lymphocytes Percent Auto 18.3 % (20-40); Mean Corpuscular HGB Conc 32.5 g/dl (31.0-35.0); Mean Corpuscular Hemoglobin 30.4 pg (27.0-33.0); Mean Corpuscular Volume 93.4 fL (80.0-98.0); Mean Platelet Volume 9.7 fL (9.4-12.3); Monocytes Absolute Auto 0.7 X10*3/uL (0.1-1.2); Monocytes Percent Auto 10.4 % (2-11); Neutrophils Absolute Auto 4.1 x10*3/uL (2.0-8.3); Neutrophils Percent Auto 65.9 % (45-73); Platelet Count 220 X10*3/uL (160-400); Red Blood Count 4.54 X10*6/uL (4.20-5.50); Red Cell Distribution Width 12.8 % (11.0-16.0); White Blood Count 6.3 X10*3/uL (4.8-10.8)
[2022-12-17 09:11] LABS: Appearance Urine Clear; Color Urine Yellow; Glucose Urine UA Negative (Negative); Leukocyte Esterase Urine Small (1+) (Negative); Nitrite Urine Negative (Negative); Specific Gravity - Urine 1.015 (1.005-1.025); UMIC TRIGGER UACC YES; Urine Blood Negative (Negative); Urine Ketones Negative (Negative); Urine Protein Negative (Neg-Trace)
[2022-12-17 09:27] LABS: Bacteria Urine None Seen (None Seen); Hyaline Casts Urine 0-2 /LPF (0-2); RBC Urine 0-2 /HPF (0-2); Squamous Epithelial Cell Urine 0-2 /HPF (0-2); UACC Culture Trigger YES; WBC Urine 0-5 /HPF (0-5)
[2022-12-17 09:39] LABS: Alanine Aminotransferase 27 U/L (0-31); Alkaline Phosphatase 51 U/L (39-117); Anion Gap 15 (12-20); Aspartate Amino Transferase 27 U/L (5-31); Bilirubin Total 0.4 mg/dL (0.0-1.0); Blood Urea Nitrogen 13 mg/dL (9-16); Calcium 9.4 mg/dL (8.4-10.2); Carbon Dioxide 26 mmol/L (22-29); Chloride 103 mmol/L (96-108); Cholesterol 170 mg/dL (<200); Estimated Glomerular Filt Rate 58; Glucose Fasting 88 mg/dL (60-99); HDL Cholesterol 46 mg/dL (>40); LDL Cholesterol Calculated 99 mg/dL (<100); Potassium 3.8 mmol/L (3.3-5.1); Sodium 140 mmol/L (135-145); Total Protein 6.8 g/dL (6.5-8.0); Triglycerides 128 mg/dL (<150)
[2022-12-17 09:58] LABS: Free T4 (Free Thyroxine) 0.96 ng/dL (0.71-1.85); Vitamin D 25-OH Total 63.7 ng/mL (>30)
[2022-12-17 10:02] LABS: Folate 10.9 ng/mL (> or = 4.0); Vitamin B12 1893 pg/mL (200-900)
== END 2022-12-17 08:15 | disposition home or self-care (01) ==
LOC: HO.LAB 08:14
PROVIDERS: PCP Internal Medicine; Visit Provider Internal Medicine
DX: I10 Essential (primary) hypertension (principal); R79.89 Other specified abnormal findings of blood chemistry; E55.9 Vitamin D deficiency, unspecified; E53.8 Deficiency of other specified B group vitamins; E78.00 Pure hypercholesterolemia, unspecified; R30.0 Dysuria
CPT/HCPCS: 36415; 80053; 80061; 81001; 81003; 82306; 82607; 82746; 84439; 84443; 85025; 87086

== ENCOUNTER 2023-01-01 14:09 | Outpatient (AMB) | payer BC, SELFPAY ==
[2023-01-01 14:11] VITALS: BP 124/72; PULSE 61; O2SAT 97; BMI 25.7
--- NOTE | 2023-01-01 14:11 | A.OFFPC_ITS ---
Vital Signs 01/01/23 14:11 Height 5 ft 6 in Weight 159 lb 8 oz BMI 25.7 BP 124/72 Blood Pressure Location Lt brachial Position Sitting Pulse 61 Pulse Source Pulse Oximeter Pulse Oximetry (%) 97 Oxygen Delivery Method Room Air Intake Visit Reasons: 4 month f/u Steward/Stewardess Room Required: No Accompanied by: Self / Same As Patient Allergies enflurane [ENFLURANE] Allergy (Severe, Verified 01/01/23 14:48) Per Patient Liver toxicity piperacillin [Zosyn] Allergy (Severe, Verified 01/01/23 14:48) Rash tazobactam [Zosyn] Allergy (Severe, Verified 01/01/23 14:48) Rash Medication List - Last Reconciled 01/01/23 by Colt Teran MD amiodarone 200 mg PO DAILY atorvastatin 10 mg PO DAILY cholecalciferol (vitamin D3) 25 mcg PO DAILY 90 days cyanocobalamin (vitamin B-12) (Vitamin B-12) 1,000 mcg PO DAILY 90 days diltiazem HCl 240 mg See Protocol PO DAILY 90 days Eliquis (apixaban) 2.5 mg PO BID 30 days NS ferrous sulfate 325 mg PO BID [FRONT-WHEELED WALKER As directed ; Ht = 5'6 ; Wt = 164 lbs; Rx is for INDEFINITE/PERMANENT/FOREVER/LIFETIME USE] lorazepam 0.5 mg PO BID PRN omeprazole 40 mg PO DAILY@0630 raloxifene 60 mg PO DAILY 90 days [SHOWER CHAIR As directed; Rx is for INDEFINITE/PERMANENT/FOREVER/LIFETIME USE] sucralfate (Carafate) 1 g PO QIDACHS 30 days Tobacco use date assessed: 01/01/23 Fall risk assessment: No Falls in past year Last assessed Fall Risk: 01/01/23 Dental Screening Dental Screen Date: 01/01/23 Did you have a dental visit in the last 12 months?: Yes Did you have a dental problem in the last 6 months where you did not have access to dental care?: No Was dental information given to patient?: Patient has dentist HPI 4 month f/u HPI Details Patient comes in today for her follow up visit States that she feels okay She denies any headaches or dizziness Denies any chest pains, no SOB No nausea/vomiting, no abdominal pain No change in bowel habits noted Had her follow up labs done a couple of weeks ago - to discuss her results [facility] Medical History Afib Hypertrophic cardiomyopathy Atrial fibrillation with RVR Anemia Gastric ulcer History of blood transfusion Vitamin B12 deficiency Overweight (BMI 25.0-29.9) Primary osteoarthritis of hand Vitamin D deficiency Osteopenia Anemia Cardiac murmur Hiatal hernia Sevilla's esophagus Benign essential hypertension Pure hypercholesterolemia Surgical History History of esophagogastroduodenoscopy (EGD) History of appendectomy History of hysterectomy Family History Father Hypertension Mother Stroke Social History Household Members: Spouse Housing: House Do you presently have visiting nurse or other home services: No Alcohol intake: never Patient Tobacco Use Status: Never used Tobacco e-Cigarette/Vaping Use: Never Used Second Hand Smoke Exposure: No Advance Directives Date on File: 01/22/21 service: No Current occupational status: retired Cognitive needs: No Hearing needs: No Vision needs: Yes (glasses) Questionnaire PHQ-9 Over the last 2 weeks, how often have you been bothered by any of the following problems? 1. Little interest or pleasure in doing things: not at all 2. Feeling down, depressed, or hopeless: not at all 3. Trouble falling or staying asleep, or sleeping too much: not at all 4. Feeling tired or having little energy: not at all 5. Poor appetite or overeating: not at all 6. Feeling bad about yourself - or that you are a failure or have let yourself or your family down: not at all 7. Trouble concentrating on things, such as reading the newspaper or watching television: not at all 8. Moving or speaking so slowly that other people could have noticed. Or the opposite - being so fidgety or restless that you have been moving around a lot more than usual: not at all 9. Thoughts that you would be better off or of hurting yourself in some way: not at all Total score: 0 Depression Screening Interpretation: Negative Depression Screening Done: Yes 46538 - PHQ-9 Billing: Yes Source: Developed by Drs. Emiliano Ferrari, Laura Barlow, Nico Ely and colleagues, with an educational florentino from [employer]. Thrive Questionnaire Date Thrive assessed: 01/01/23 I am a: Patient What is your living situation today?: I have a steady place to live Within the past 12 months, did the food you bought not last and you didn't have the money to get more?: Never true Within the past 12 months, did you worry whether your food would run out before you got money to buy more?: Never true Do you have trouble paying for medicines?: Yes Do you have trouble getting transportation to medical appointments?: Yes Do you have trouble paying your heating and electricity bill?: Yes Do you have trouble taking care of your child, family member or friend?: Yes Do you have trouble with day-to-day activities such as bathing, preparing meals, shopping, managing finances, etc.?: Yes Are you currently unemployed and looking for a job?: Yes Are you interested in more education?: Yes Please select the resources that you would like help with: None Currently or been in a relationship where the following occur: no concerns reported AUDIT C Alcohol Use Questionnaire (AUDIT-C) 1. How often do you have a drink containing alcohol?: Never 3. How often do you have six or more drinks on one occasion?: Never Total Score: 0 Score Reviewed/Action Taken: Yes JULIA-7 AMB Questionnaire JULIA-7 Date JULIA - 7 assessed: 01/01/23 Feeling nervous, anxious, or on edge: 3 = Nearly every day Not being able to stop or control worryin = Several days Worrying too much about different things: 2 = More than half the days Trouble relaxin = More than half the days Being so restless that it is hard to sit still: 0 = Not at all Becoming easily annoyed or irritable: 0 = Not at all Feeling afraid as if something awful might happen: 1 = Several days Total JULIA-7 score (0-4 normal; 5-9 mild; 10-14 moderate; 15-21 severe): 9 Source: Developed by Laura Godinez Kurt Kroenke and colleagues, with an educational florentino from [employer]. JULIA-7 Assessment Billing JULIA-7 Assessment Tool: JULIA-7 Assessment 86189 Review of Systems Const Denies fatigue, Denies fever(s) and Denies headache(s) ENT Denies dysphagia, Denies dizziness, Denies headache(s), Reports hearing loss, Denies neck pain, Denies odynophagia and Denies sore throat Card Denies chest pain, Denies palpitations and Denies dyspnea Resp Denies cough and Denies dyspnea GI Denies abdominal pain, Denies constipation, Denies dysphagia, Denies heartburn, Denies diarrhea, Denies nausea, Denies odynophagia and Denies vomiting Denies difficulty voiding, Denies nocturia and Denies dysuria Musc Denies neck pain Skin/Breast Denies rash Neuro Denies dizziness and Denies headache(s) Endo Denies fatigue and Denies palpitations Physical exam (Primary Care) Vital Signs: Last Vital Signs Pulse 61 01/01/23 14:11 BP 124/72 01/01/23 14:11 Pulse Ox 97 01/01/23 14:11 Oxygen Delivery Method Room Air 01/01/23 14:11 BMI result Body Mass Index 25.7 Tobacco/Smoking Status: Tobacco use Status Tobacco use date assessed 01/01/23 01/01/23 14:18 Patient Tobacco Use Status Never used Tobacco 01/01/23 14:18 e-Cigarette/Vaping Use Never Used 01/01/23 14:18 PHQ-9: PHQ-9 Score PHQ-9: Total score 0 01/01/23 15:20 Depression Screening Interpretation: Negative Thrive Assessment: Date of Thrive Assessment Date Thrive assessed 01/01/23 01/01/23 14:18 Currently or been in a relationship where the following occur: no concerns reported Const General: no acute distress and alert HENMT Throat: Yes posterior oropharynx normal and Yes tonsils normal (no TP congestion) Neck Neck: Yes no lymphadenopathy and Yes supple Resp Auscultation: clear to auscultation bilaterally, no rales and no wheezes Cardio Rate: regular rate Rhythm: regular rhythm Heart sounds: Murmur heart sound present systolic soft, II/ and at the apex GI Palpation (GI): Soft to palpation and nontender Auscultation: normal bowel sounds Skin Rashes: no rashes Extrem General: Yes no clubbing, cyanosis or edema Immunizations tetanus-diphtheria toxoids-Td 2 Lf unit-2 Lf unit/0.5 mL IM suspension Performing Provider: Colt Teran MD [facility] Administered by: Dallas Donnelly on 01/01/23 15:20 Dose Route Admin Location Dispensed Lot Number Expiration Date NDC [employer] 0.5 mL IM Right Deltoid 0.5 mL [id number] 07/28/23 [id number] [employer] VIS Given Date VIS Provided VIS Publication Date 01/01/23 Single Vaccine 20 Eligibility Eligibility Date Funding Source Not [facility] Eligible 01/01/23 [facility] funds Results Reviewed Results Reviewed: Laboratory Tests 12/17/22 08:34 WBC 6.3 Hgb 13.8 Hct 42.4 Plt Count 220 Sodium 140 Potassium 3.8 Creatinine 0.93 Estimated GFR 58 Fasting Glucose 88 Calcium 9.4 AST 27 ALT 27 Triglycerides 128 Cholesterol 170 LDL Cholesterol, Calc 99 HDL Cholesterol 46 Vitamin B12 1893 H 25-OH Vitamin D Total 63.7 TSH 4.90 H Free T4 0.96 Ur Specific [place] 1.015 Urine Protein Negative Urine Glucose (UA) Negative Urine Blood Negative Assessment and Plan Assessment & Plan (1) Acute gastrointestinal bleeding: Code(s): K92.2 - Gastrointestinal hemorrhage, unspecified Plan: Resolved with no recent recurrence EGD done on 06/24/22 and 06/27/22 revealed (+) ulcerated gastric mass and Bx done on 06/27/22 came out benign - was a hyperplastic mucosal polyp with background mild chronic inactive inflammation with no H pylori Continue Omeprazole 40 mg QD and Carafate 1 gm QID Follow up with GI as scheduled (2) Anemia: Code(s): D64.9 - Anemia, unspecified Qualifiers: Anemia type: other cause Other causes of anemia: acute posthemorrhagic Qualified Code(s): D62 - Acute posthemorrhagic anemia Plan: Resolved/corrected - was mostly due to acute GI bleed; patient required blood transfusion again during her last hospital admission H/H is now normal at 13.8/42.4 on her labs done a couple of weeks ago on 12/17/22 Will continue to monitor her CBC regularly (3) Paroxysmal atrial fibrillation: Code(s): I48.0 - Paroxysmal atrial fibrillation Plan: Patient currently remains in sinus rhythm - converted on Amiodarone Continue Amiodarone 200 mg QD and Dilitiazem ER 240 mg QD Was on Eliquis for thromboembolism prophylaxis but this was discontinued a few months ago due to GI bleeding; patient has not yet resumed Eliquis Because of her GI bleeding and anemia, she has been advised to consider getting a Watchman device to obviate her need for long-term anticoagulation She was seen by cardiology and has been referred to Dr. Sharma for consideration for either a Watchman device or ablation Follow up with cardiology (Dr. Funk) as scheduled (4) Benign essential hypertension: Code(s): I10 - Essential (primary) hypertension Plan: Reinforced low sodium diet - goal is systolic BP of at least 130 to 140 mm or le ss Continue Diltiazem 240 mg QD (was on Amlodipine 2.5 mg QD in the past but this was stopped when she was started on Diltiazem) (5) Pure hypercholesterolemia: Code(s): E78.00 - Pure hypercholesterolemia, unspecified Plan: Results of her labs done a couple of weeks ago reviewed and discussed with patient Reinforced low cholesterol diet Continue Atorvastatin 10 mg QD Will recheck her labs and fasting lipids in 4 months for follow up (6) Osteopenia: Code(s): M85.80 - Other specified disorders of bone density and structure, unspecified site Qualifiers: Osteopenia location: unspecified Qualified Code(s): M85.80 - Other specified disorders of bone density and structure, unspecified site Plan: Continue Raloxifene 60 mg QD Repeat BMD done on 10/07/2018 showed no significant change in BMD from 04/2014 - will continue to monitor every 2 to 3 years Patient encouraged again to continue to stay active and exercise regularly as tolerated (7) Vitamin D deficiency: Code(s): E55.9 - Vitamin D deficiency, unspecified Plan: Corrected - continue Vitamin D3 1000 units QD (8) Vitamin B12 deficiency: Code(s): E53.8 - Deficiency of other specified B group vitamins Plan: Corrected - have advised patient to lower her Vitamin B12 1000 mcg tablets intake to 1 tablet 2 to 3 times a week as her level was very high on her recent labs (9) Elevated TSH: Code(s): R79.89 - Other specified abnormal findings of blood chemistry Plan: TSH was elevated on her recent labs but free T4 was normal Patient is clinically euthyroid at present Will recheck her TFTs in 4 months Plan Td booster given today - she last had her Tdap on 11/05/2011 Follow up in 4 months Orders: Orders Complete Blood Count Auto Diff 4 Months I10 - Essential (primary) hypertension Comprehensive [place]. Panel Fast 4 Months E78.00 - Pure hypercholesterolemia, unspecified Lipid Panel 4 Months E78.00 - Pure hypercholesterolemia, unspecified UA CC w/rflx Micro + Cult 4 Months R30.0 - Dysuria Vitamin D 25-OH Total 4 Months E55.9 - Vitamin D deficiency, unspecified Vitamin B12 and Folate 4 Months E53.8 - Deficiency of other specified B group vitamins Td State Immunization 01/01/23 Z23 - Encounter for immunization Free T4 (Free Thyroxine) 4 Months E03.9 - Hypothyroidism, unspecified, R79.89 - Other specified abnormal findings of blood chemistry Thyroid Stimulating Hormone 4 Months E03.9 - Hypothyroidism, unspecified, R79.89 - Other specified abnormal findings of blood chemistry Coding Level of Care Code Est Pt Level 4 (57794) Diagnoses Acute gastrointestinal bleeding K92.2 Anemia due to acute blood loss D62 Anemia type: other cause Other causes of anemia: acute posthemorrhagic Paroxysmal atrial fibrillation I48.0 Benign essential hypertension I10 Pure hypercholesterolemia E78.00 Osteopenia, unspecified location M85.80 Osteopenia location: unspecified Vitamin D deficiency E55.9 Vitamin B12 deficiency E53.8 Elevated TSH R79.89 Additional Codes JULIA-7 Assessment Billing - JULIA-7 Assessment Tool: JULIA-7 Assessment 51033 ([id number])
== END 2023-01-01 15:20 | disposition home or self-care (01) ==
PROVIDERS: PCP Internal Medicine; Visit Provider Internal Medicine
DX: Z23 Encounter for immunization (principal)
CPT/HCPCS: 90471; 90714; 99214

== ENCOUNTER 2023-04-02 10:06 | Outpatient (REF) | payer BC, SELFPAY ==
[2023-04-02 10:32] LABS: MANUAL DIFF FLAG NO
[2023-04-02 10:49] LABS: Basophils Absolute Auto 0.1 X10*3/uL (0.0-0.2); Basophils Percent Auto 0.8 % (0-2); Eosinophils Absolute Auto 0.1 X10*3/uL (0.0-0.4); Eosinophils Percent Auto 1.8 % (0-4); Hemoglobin 13.2 g/dl (12.0-16.0); Imm Gran Abs Auto 0.02 X10*3/uL (0.00-0.03); Imm Gran Pct Auto 0.3 % (0.0-0.4); Lymphocytes Absolute Auto 1.2 X10*3/uL (1.2-4.9); Lymphocytes Percent Auto 16.1 % (20-40); Mean Corpuscular Hemoglobin 30.5 pg (27.0-33.0); Mean Corpuscular Volume 92.4 fL (80.0-98.0); Monocytes Absolute Auto 0.6 X10*3/uL (0.1-1.2); Monocytes Percent Auto 7.7 % (2-11); Neutrophils Absolute Auto 5.6 x10*3/uL (2.0-8.3); Neutrophils Percent Auto 73.3 % (45-73); Platelet Count 247 X10*3/uL (160-400); Red Blood Count 4.33 X10*6/uL (4.20-5.50); Red Cell Distribution Width 12.2 % (11.0-16.0); White Blood Count 7.6 X10*3/uL (4.8-10.8)
[2023-04-02 11:25] LABS: Alanine Aminotransferase 32 U/L (0-31); Albumin Level 3.9 g/dL (3.5-5.0); Alkaline Phosphatase 47 U/L (39-117); Anion Gap 15 (12-20); Aspartate Amino Transferase 26 U/L (5-31); Bilirubin Total 0.4 mg/dL (0.0-1.0); Blood Urea Nitrogen 15 mg/dL (9-16); Calcium 9.3 mg/dL (8.4-10.2); Carbon Dioxide 27 mmol/L (22-29); Chloride 103 mmol/L (96-108); Cholesterol 168 mg/dL (<200); Estimated Glomerular Filt Rate > 60; Glucose Fasting 88 mg/dL (60-99); HDL Cholesterol 49 mg/dL (>40); LDL Cholesterol Calculated 93 mg/dL (<100); Potassium 4.5 mmol/L (3.3-5.1); Sodium 140 mmol/L (135-145); Total Protein 6.8 g/dL (6.5-8.0); Triglycerides 131 mg/dL (<150)
[2023-04-02 11:45] LABS: Thyroid Stimulating Hormone 4.03 uIU/mL (0.32-4.0); Vitamin D 25-OH Total 50.4 ng/mL (>30)
[2023-04-02 11:50] LABS: Folate 8.8 ng/mL (> or = 4.0); Vitamin B12 758 pg/mL (200-900)
[2023-04-02 13:56] LABS: Appearance Urine Clear; Color Urine Yellow; Glucose Urine UA Negative (Negative); Leukocyte Esterase Urine Moderate (2+) (Negative); Nitrite Urine Negative (Negative); PH 5.5 (5.0-9.0); Specific Gravity - Urine 1.015 (1.005-1.025); UMIC TRIGGER UACC YES; Urine Blood Negative (Negative); Urine Ketones Negative (Negative); Urine Protein Negative (Neg-Trace)
[2023-04-02 14:11] LABS: Bacteria Urine None Seen (None Seen); Hyaline Casts Urine 0-2 /LPF (0-2); RBC Urine 0-2 /HPF (0-2); Squamous Epithelial Cell Urine 0-2 /HPF (0-2); WBC Urine 0-5 /HPF (0-5)
== END 2023-04-02 10:07 | disposition home or self-care (01) ==
LOC: HO.LAB 10:06
PROVIDERS: PCP Internal Medicine; Visit Provider Internal Medicine
DX: I10 Essential (primary) hypertension (principal); E53.8 Deficiency of other specified B group vitamins; E03.9 Hypothyroidism, unspecified; R79.89 Other specified abnormal findings of blood chemistry; E78.00 Pure hypercholesterolemia, unspecified; E55.9 Vitamin D deficiency, unspecified
CPT/HCPCS: 36415; 80053; 80061; 81001; 81003; 82306; 82607; 82746; 84439; 84443; 85025

== ENCOUNTER 2023-04-14 14:09 | Outpatient (AMB) | payer BC, SELFPAY ==
[2023-04-14 14:14] VITALS: BP 130/72; PULSE 63; O2SAT 99; BMI 26.0
--- NOTE | 2023-04-14 14:14 | A.OFFPC_ITS ---
Vital Signs 04/14/23 14:14 Height 5 ft 6 in Weight 161 lb 4 oz BMI 26.0 BP 130/72 Blood Pressure Location Lt brachial Position Sitting Pulse 63 Pulse Source Pulse Oximeter Pulse Oximetry (%) 99 Oxygen Delivery Method Room Air Intake Visit Reasons: 3 month f/u Clinical Project Coordinator Required: No Accompanied by: Self / Same As Patient Allergies enflurane [ENFLURANE] Allergy (Severe, Verified 04/14/23 14:28) Per Patient Liver toxicity piperacillin [Zosyn] Allergy (Severe, Verified 04/14/23 14:28) Rash tazobactam [Zosyn] Allergy (Severe, Verified 04/14/23 14:28) Rash Medication List - Last Reconciled 04/14/23 by Colt Teran MD amiodarone 200 mg PO DAILY atorvastatin 10 mg PO DAILY cholecalciferol (vitamin D3) 25 mcg PO DAILY 90 days cyanocobalamin (vitamin B-12) (Vitamin B-12) 1,000 mcg PO DAILY 90 days diltiazem HCl 240 mg See Protocol PO DAILY 90 days Eliquis (apixaban) 2.5 mg PO BID 90 days NS ferrous sulfate 325 mg PO BID [FRONT-WHEELED WALKER As directed ; Ht = 5'6 ; Wt = 164 lbs; Rx is for INDEFINITE/PERMANENT/FOREVER/LIFETIME USE] lorazepam 0.5 mg PO BID PRN omeprazole 40 mg PO DAILY@0630 raloxifene 60 mg PO DAILY 90 days [SHOWER CHAIR As directed; Rx is for INDEFINITE/PERMANENT/FOREVER/LIFETIME USE] sucralfate (Carafate) 1 g PO QIDACHS 30 days Tobacco use date assessed: 04/14/23 Fall risk assessment: 1 Fall in past year Last assessed Fall Risk: 04/14/23 Dental Screening Dental Screen Date: 04/14/23 Did you have a dental visit in the last 12 months?: Yes Did you have a dental problem in the last 6 months where you did not have access to dental care?: No Was dental information given to patient?: Patient has dentist HPI 3 month f/u HPI Details Patient comes in today for her follow up visit States that she feels okay except for a recurrent pain over the middle of her back for the past 3 weeks Denies any recent injury or trauma to her back She denies any headaches or dizziness Denies any chest pains, no SOB No nausea/vomiting, no abdominal pain No change in bowel habits noted Had her follow up labs done a couple of weeks ago - to discuss her results [facility] Medical History Afib Hypertrophic cardiomyopathy Atrial fibrillation with RVR Anemia Gastric ulcer History of blood transfusion Vitamin B12 deficiency Overweight (BMI 25.0-29.9) Primary osteoarthritis of hand Vitamin D deficiency Osteopenia Anemia Cardiac murmur Hiatal hernia Sevilla's esophagus Benign essential hypertension Pure hypercholesterolemia Surgical History History of esophagogastroduodenoscopy (EGD) History of appendectomy History of hysterectomy Family History Father Hypertension Mother Stroke Social History Household Members: Spouse Housing: House Do you presently have visiting nurse or other home services: No Alcohol intake: never Patient Tobacco Use Status: Never used Tobacco e-Cigarette/Vaping Use: Never Used Second Hand Smoke Exposure: No Advance Directives Date on File: 01/22/21 service: No Current occupational status: retired Cognitive needs: No Hearing needs: No Vision needs: Yes (glasses) Questionnaire PHQ-9 Over the last 2 weeks, how often have you been bothered by any of the following problems? 1. Little interest or pleasure in doing things: not at all 2. Feeling down, depressed, or hopeless: not at all 3. Trouble falling or staying asleep, or sleeping too much: not at all 4. Feeling tired or having little energy: not at all 5. Poor appetite or overeating: not at all 6. Feeling bad about yourself - or that you are a failure or have let yourself or your family down: not at all 7. Trouble concentrating on things, such as reading the newspaper or watching television: not at all 8. Moving or speaking so slowly that other people could have noticed. Or the opposite - being so fidgety or restless that you have been moving around a lot more than usual: not at all 9. Thoughts that you would be better off or of hurting yourself in some way: not at all Total score: 0 Depression Screening Interpretation: Negative Depression Screening Done: Yes 21875 - PHQ-9 Billing: Yes Source: Developed by Drs. Emiliano Ferrari, Laura Barlow, Nico Ely and colleagues, with an educational florentino from [employer]. Thrive Questionnaire Date Thrive assessed: 04/14/23 I am a: Patient What is your living situation today?: I have a steady place to live Within the past 12 months, did the food you bought not last and you didn't have the money to get more?: Never true Within the past 12 months, did you worry whether your food would run out before you got money to buy more?: Never true Do you have trouble paying for medicines?: Yes Do you have trouble getting transportation to medical appointments?: Yes Do you have trouble paying your heating and electricity bill?: Yes Do you have trouble taking care of your child, family member or friend?: Yes Do you have trouble with day-to-day activities such as bathing, preparing meals, shopping, managing finances, etc.?: Yes Are you currently unemployed and looking for a job?: Yes Are you interested in more education?: Yes Please select the resources that you would like help with: None Currently or been in a relationship where the following occur: no concerns repor shaan THRIVE Score: 2 AUDIT C Alcohol Use Questionnaire (AUDIT-C) 1. How often do you have a drink containing alcohol?: Never 3. How often do you have six or more drinks on one occasion?: Never Total Score: 0 Score Reviewed/Action Taken: Yes JULIA-7 AMB Questionnaire JULIA-7 Date JULIA - 7 assessed: 04/14/23 Feeling nervous, anxious, or on edge: 3 = Nearly every day Not being able to stop or control worryin = Several days Worrying too much about different things: 2 = More than half the days Trouble relaxin = More than half the days Being so restless that it is hard to sit still: 0 = Not at all Becoming easily annoyed or irritable: 0 = Not at all Feeling afraid as if something awful might happen: 1 = Several days Total JULIA-7 score (0-4 normal; 5-9 mild; 10-14 moderate; 15-21 severe): 9 Source: Developed by Drs. Emiliano Ferrari, Laura Barlow, Nico Ely and colleagues, with an educational florentino from [employer]. JULIA-7 Assessment Billing JULIA-7 Assessment Tool: JULIA-7 Assessment 41785 Review of Systems Const Denies fatigue, Denies fever(s) and Denies headache(s) ENT Denies dysphagia, Denies dizziness, Denies headache(s), Reports hearing loss, Denies neck pain, Denies odynophagia and Denies sore throat Card Denies chest pain, Denies palpitations and Denies dyspnea Resp Denies cough and Denies dyspnea GI Denies abdominal pain, Denies constipation, Denies dysphagia, Denies heartburn, Denies diarrhea, Denies nausea, Denies odynophagia and Denies vomiting Denies difficulty voiding, Denies nocturia and Denies dysuria Musc Reports back pain (recurrent, over the middle of her back) and Denies neck pain Skin/Breast Denies rash Neuro Denies dizziness and Denies headache(s) Endo Denies fatigue and Denies palpitations Physical exam (Primary Care) Vital Signs: Last Vital Signs Pulse 63 04/14/23 14:14 BP 130/72 04/14/23 14:14 Pulse Ox 99 04/14/23 14:14 Oxygen Delivery Method Room Air 04/14/23 14:14 BMI result Body Mass Index 26.0 Tobacco/Smoking Status: Tobacco use Status Tobacco use date assessed 04/14/23 04/14/23 14:20 Patient Tobacco Use Status Never used Tobacco 04/14/23 14:20 e-Cigarette/Vaping Use Never Used 04/14/23 14:20 PHQ-9: PHQ-9 Score PHQ-9: Total score 0 04/14/23 14:32 Depression Screening Interpretation: Negative Thrive Assessment: Date of Thrive Assessment Date Thrive assessed 04/14/23 04/14/23 14:20 Currently or been in a relationship where the following occur: no concerns reported Const General: no acute distress and alert HENMT Ears: TM's normal bilaterally and EAC's normal Throat: Yes posterior oropharynx normal and Yes tonsils normal (no TP congestion) Neck Neck: Yes no lymphadenopathy and Yes supple Thyroid: Thyroid normal Resp Auscultation: clear to auscultation bilaterally, no rales and no wheezes Cardio Rate: regular rate Rhythm: regular rhythm Heart sounds: Murmur heart sound present systolic soft, II/ and at the apex GI Palpation (GI): Soft to palpation and nontender Auscultation: normal bowel sounds General: Yes no CVA tenderness Back/Spine/Pelvis Back: no CVA tenderness Thoracic/Lumbar Spine: thoracic spinal tenderness Skin Rashes: no rashes Extrem General: Yes no clubbing, cyanosis or edema Results Reviewed Results Reviewed: Laboratory Tests 04/02/23 04/02/23 04/02/23 10:25 10:25 10:31 WBC 7.6 Hgb 13.2 Hct 40.0 Plt Count 247 Sodium 140 Potassium 4.5 Creatinine 0.90 Estimated GFR > 60 Fasting Glucose 88 Calcium 9.3 AST 26 ALT 32 H Triglycerides 131 Cholesterol 168 LDL Cholesterol, Calc HDL Cholesterol 49 Vitamin B12 758 25-OH Vitamin D Total 50.4 TSH 4.03 H Free T4 1.10 Ur Specific [place] 1.015 Urine Protein Negative Urine Glucose (UA) Negative Urine Blood Negative Urine Nitrite Negative Ur Leukocyte Esterase Moderate (2+) H 04/02/23 10:31 WBC Hgb Hct Plt Count Sodium Potassium Creatinine Estimated GFR Fasting Glucose Calcium AST ALT Triglycerides Cholesterol LDL Cholesterol, Calc 93 HDL Cholesterol Vitamin B12 25-OH Vitamin D Total TSH Free T4 Ur Specific [place] Urine Protein Urine Glucose (UA) Urine Blood Urine Nitrite Ur Leukocyte Esterase Assessment and Plan Assessment & Plan (1) Paroxysmal atrial fibrillation: Code(s): I48.0 - Paroxysmal atrial fibrillation Plan: Patient currently remains in sinus rhythm - cardioverted on Amiodarone Continue Amiodarone 200 mg QD and Dilitiazem ER 240 mg QD Was on Eliquis for thromboembolism prophylaxis but this was discontinued last year due to GI bleeding; patient has not yet resumed Eliquis Because of her GI bleeding and anemia, she has been advised to consider getting a Watchman device to obviate her need for long-term anticoagulation but she is currently still thinking about whether she wants to proceed with this or not She was seen by cardiology and has been referred to Dr. Sharma for consideration for either a Watchman device or ablation Follow up with cardiology (Dr. Funk) as scheduled (2) Benign essential hypertension: Code(s): I10 - Essential (primary) hypertension Plan: Reinforced low sodium diet - goal is systolic BP of at least 130 to 140 mm or less Continue Diltiazem 240 mg QD (was on Amlodipine 2.5 mg QD in the past but this was stopped when she was started on Diltiazem) (3) Pure hypercholesterolemia: Code(s): E78.00 - Pure hypercholesterolemia, unspecified Plan: Results of her labs done a couple of weeks ago reviewed and discussed with patient Reinforced low cholesterol diet Continue Atorvastatin 10 mg QD Will recheck her labs and fasting lipids in 4 months for follow up (4) Acute gastrointestinal bleeding: Code(s): K92.2 - Gastrointestinal hemorrhage, unspecified Plan: Resolved with no recurrence lately EGD done on 06/24/22 and 06/27/22 revealed (+) ulcerated gastric mass and Bx done on 06/27/22 came out benign - was a hyperplastic mucosal polyp with background mild chronic inactive inflammation with no H pylori Continue Omeprazole 40 mg QD and Carafate 1 gm QID Follow up with GI as scheduled (5) Anemia: Code(s): D64.9 - Anemia, unspecified Qualifiers: Anemia type: other cause Other causes of anemia: acute posthemorrhagic Qualified Code(s): D62 - Acute posthemorrhagic anemia Plan: Resolved/corrected - was mostly due to acute GI bleed; patient required blood transfusion again during her last hospital admission H/H is now normal at 13.2/40.0 on her labs done a couple of weeks ago Will continue to monitor her CBC regularly (6) Osteopenia: Code(s): M85.80 - Other specified disorders of bone density and structure, unspecified site Qualifiers: Osteopenia location: unspecified Qualified Code(s): M85.80 - Other specified disorders of bone density and structure, unspecified site Plan: Continue Raloxifene 60 mg QD Repeat BMD done on 10/07/2018 showed no significant change in BMD from 04/2014 - will continue to monitor every few years Patient is encouraged again to continue to stay active and exercise regularly as tolerated (7) Vitamin D deficiency: Code(s): E55.9 - Vitamin D deficiency, unspecified Plan: Corrected - continue Vitamin D3 1000 units QD (8) Back pain: Code(s): M54.9 - Dorsalgia, unspecified Qualifiers: Back pain location: thoracic back pain Chronicity: acute Back pain laterality: midline Qualified Code(s): M54.6 - Pain in thoracic spine Plan: Will send her for x-rays of the thoracic spine JUHI for further evaluation of her recent back pain (9) Vitamin B12 deficiency: Code(s): E53.8 - Deficiency of other specified B group vitamins Plan: Corrected - have advised patient to lower her Vitamin B12 1000 mcg tablets intake to 1 tablet 2 to 3 times a week as her level was very high on her recent labs (10) Elevated TSH: Code(s): R79.89 - Other specified abnormal findings of blood chemistry Plan: Her TSH is still slightly elevated on her recent labs but is slowly improving; her free T4 remains normal Patient is clinically euthyroid at present Will recheck her TFTs in 4 months for follow up (11) Overweight (BMI 25.0-29.9): Code(s): E66.3 - Overweight Plan: Reinforced diet/exercise as tolerated/lose weight Plan Follow up in 4 months Orders: Orders XR thoracic spine 3V 04/14/23 M54.9 - Dorsalgia, unspecified Comprehensive [place]. Panel Fast 4 Months E78.00 - Pure hypercholesterolemia, unspecified UA CC w/rflx Micro + Cult 4 Months R30.0 - Dysuria Vitamin D 25-OH Total 4 Months E55.9 - Vitamin D deficiency, unspecified Complete Blood Count Auto Diff 4 Months D64.9 - Anemia, unspecified Lipid Panel 4 Months E78.00 - Pure hypercholesterolemia, unspecified Thyroid Stimulating Hormone 4 Months R79.89 - Other specified abnormal findings of blood chemistry Free T4 (Free Thyroxine) 4 Months R79.89 - Other specified abnormal findings of blood chemistry Coding Level of Care Code Est Pt Level 4 (70028) Diagnoses Paroxysmal atrial fibrillation I48.0 Benign essential hypertension I10 Pure hypercholesterolemia E78.00 Acute gastrointestinal bleeding K92.2 Anemia due to acute blood loss D62 Anemia type: other cause Other causes of anemia: acute posthemorrhagic Osteopenia, unspecified location M85.80 Osteopenia location: unspecified Vitamin D deficiency E55.9 Acute midline thoracic back pain M54.6 Back pain location: thoracic back pain Chronicity: acute Back pain laterality: midline Vitamin B12 deficiency E53.8 Elevated TSH R79.89 Overweight (BMI 25.0-29.9) E66.3 Additional Codes JULIA-7 Assessment Billing - JULIA-7 Assessment Tool: JULIA-7 Assessment [id number] ([id number])
== END 2023-04-14 14:46 | disposition home or self-care (01) ==
PROVIDERS: PCP Internal Medicine; Visit Provider Internal Medicine
DX: I48.0 Paroxysmal atrial fibrillation (principal); I10 Essential (primary) hypertension; E78.00 Pure hypercholesterolemia, unspecified; K92.2 Gastrointestinal hemorrhage, unspecified; D62 Acute posthemorrhagic anemia; M85.80 Other specified disorders of bone density and structure, unspecified site; E55.9 Vitamin D deficiency, unspecified; M54.6 Pain in thoracic spine; E53.8 Deficiency of other specified B group vitamins; R79.89 Other specified abnormal findings of blood chemistry; E66.3 Overweight
CPT/HCPCS: 99214

== ENCOUNTER 2023-04-14 14:53 | Outpatient (REF) | payer BC, SELFPAY ==
--- NOTE | ~2023-04-14 | XR_ITS ---
EXAMINATION: XR THORACIC SPINE CLINICAL INFORMATION: Chronic upper back pain. COMPARISON: Chest radiographs of June 24, 2022. TECHNIQUE: 3 views of the thoracic spine were obtained. FINDINGS: Mild levoscoliosis of the thoracic spine. Degenerative changes on very limited image of the cervical spine could be evaluated with dedicated cervical spine radiographs. Advanced multilevel degenerative changes in the thoracic spine. XR/XR thoracic spine 3V IMPRESSION: 1. Advanced multilevel degenerative changes in the thoracic spine. 2. Degenerative changes on very limited image of the cervical spine could be evaluated with dedicated cervical spine radiographs.
[2023-04-14 16:46] LABS: Appearance Urine Clear; Color Urine Yellow; Glucose Urine UA Negative (Negative); Leukocyte Esterase Urine Small (1+) (Negative); Nitrite Urine Negative (Negative); PH 5.5 (5.0-9.0); Specific Gravity - Urine <= 1.005 (1.005-1.025); UMIC TRIGGER UACC YES; Urine Blood Negative (Negative); Urine Ketones Negative (Negative); Urine Protein Negative (Neg-Trace)
[2023-04-14 17:50] LABS: Bacteria Urine None Seen (None Seen); Hyaline Casts Urine 0-2 /LPF (0-2); RBC Urine 0-2 /HPF (0-2); Squamous Epithelial Cell Urine 0-2 /HPF (0-2); UACC Culture Trigger YES; WBC Urine 0-5 /HPF (0-5)
== END 2023-04-14 14:54 | disposition home or self-care (01) ==
LOC: HO.XRAY 14:53
PROVIDERS: PCP Internal Medicine; Visit Provider Internal Medicine
DX: M54.9 Dorsalgia, unspecified (principal)
CPT/HCPCS: 72072; 81001; 87086

== ENCOUNTER 2023-08-04 09:44 | Outpatient (REF) | payer BC, SELFPAY ==
[2023-08-04 10:04] LABS: MANUAL DIFF FLAG NO
[2023-08-04 10:26] LABS: Basophils Absolute Auto 0.1 X10*3/uL (0.0-0.2); Basophils Percent Auto 0.7 % (0-2); Eosinophils Absolute Auto 0.2 X10*3/uL (0.0-0.4); Eosinophils Percent Auto 3.1 % (0-4); Hematocrit 40.5 % (37.0-47.0); Hemoglobin 13.4 g/dl (12.0-16.0); Imm Gran Abs Auto 0.02 X10*3/uL (0.00-0.03); Imm Gran Pct Auto 0.3 % (0.0-0.4); Lymphocytes Absolute Auto 1.4 X10*3/uL (1.2-4.9); Lymphocytes Percent Auto 19.8 % (20-40); Mean Corpuscular HGB Conc 33.1 g/dl (31.0-35.0); Mean Corpuscular Volume 90.8 fL (80.0-98.0); Mean Platelet Volume 9.8 fL (9.4-12.3); Monocytes Absolute Auto 0.6 X10*3/uL (0.1-1.2); Monocytes Percent Auto 9.2 % (2-11); Neutrophils Absolute Auto 4.6 x10*3/uL (2.0-8.3); Neutrophils Percent Auto 66.9 % (45-73); Platelet Count 233 X10*3/uL (160-400); Red Blood Count 4.46 X10*6/uL (4.20-5.50); Red Cell Distribution Width 12.9 % (11.0-16.0); White Blood Count 6.9 X10*3/uL (4.8-10.8)
[2023-08-04 10:58] LABS: Alanine Aminotransferase 37 U/L (0-31); Albumin Level 3.9 g/dL (3.5-5.0); Alkaline Phosphatase 42 U/L (39-117); Anion Gap 12 (12-20); Aspartate Amino Transferase 29 U/L (5-31); Bilirubin Total 0.4 mg/dL (0.0-1.0); Blood Urea Nitrogen 13 mg/dL (9-16); Calcium 9.1 mg/dL (8.4-10.2); Carbon Dioxide 27 mmol/L (22-29); Chloride 108 mmol/L (96-108); Cholesterol 160 mg/dL (<200); Estimated Glomerular Filt Rate > 60; Glucose Fasting 87 mg/dL (60-99); HDL Cholesterol 55 mg/dL (>40); LDL Cholesterol Calculated 86 mg/dL (<100); Potassium 4.3 mmol/L (3.3-5.1); Sodium 143 mmol/L (135-145); Total Protein 6.5 g/dL (6.5-8.0); Triglycerides 97 mg/dL (<150)
[2023-08-04 11:22] LABS: Free T4 (Free Thyroxine) 1.03 ng/dL (0.71-1.85); Thyroid Stimulating Hormone 3.57 uIU/mL (0.32-4.0); Vitamin D 25-OH Total 46.7 ng/mL (>30)
[2023-08-04 11:27] LABS: Appearance Urine Clear; Color Urine Yellow; Glucose Urine UA Negative (Negative); Leukocyte Esterase Urine Trace (Negative); Nitrite Urine Negative (Negative); Specific Gravity - Urine 1.015 (1.005-1.025); UMIC TRIGGER UACC YES; Urine Blood Negative (Negative); Urine Ketones Negative (Negative); Urine Protein Negative (Neg-Trace)
[2023-08-04 11:31] LABS: Bacteria Urine None Seen (None Seen); Hyaline Casts Urine 0-2 /LPF (0-2); RBC Urine 0-2 /HPF (0-2); Squamous Epithelial Cell Urine 0-2 /HPF (0-2); WBC Urine 0-5 /HPF (0-5)
== END 2023-08-04 09:45 | disposition home or self-care (01) ==
LOC: HO.LAB 09:44
PROVIDERS: PCP Internal Medicine; Visit Provider Internal Medicine
DX: R30.0 Dysuria (principal); E78.00 Pure hypercholesterolemia, unspecified; D64.9 Anemia, unspecified; R79.89 Other specified abnormal findings of blood chemistry; E55.9 Vitamin D deficiency, unspecified
CPT/HCPCS: 36415; 80053; 80061; 81001; 81003; 82306; 84439; 84443; 85025

== ENCOUNTER 2023-08-15 14:09 | Outpatient (AMB) | payer BC, SELFPAY ==
--- NOTE | 2023-08-15 14:16 | A.OFFPC_ITS ---
Vital Signs 08/15/23 14:17 Height 5 ft 6 in Weight 159 lb 8 oz BMI 25.7 BP 140/64 H Blood Pressure Location Lt brachial Position Sitting Pulse 74 Pulse Source Pulse Oximeter Pulse Oximetry (%) 96 Oxygen Delivery Method Room Air Intake Visit Reasons: PAF, GI bleed, hyperlipidemia Intake Note: Patient is here to follow up on PAF, GI bleed, HLD. Reed Press Feeder Required: No Poker Manager: Present Accompanied by: Spouse Allergies enflurane [ENFLURANE] Allergy (Severe, Verified 08/15/23 14:37) Per Patient Liver toxicity piperacillin [Zosyn] Allergy (Severe, Verified 08/15/23 14:37) Rash tazobactam [Zosyn] Allergy (Severe, Verified 08/15/23 14:37) Rash Medication List - Last Reconciled 08/15/23 by Colt Teran MD amiodarone 200 mg PO DAILY atorvastatin 10 mg PO DAILY cholecalciferol (vitamin D3) 25 mcg PO DAILY 90 days cyanocobalamin (vitamin B-12) (Vitamin B-12) 1,000 mcg PO DAILY 90 days diltiazem HCl CD 240 mg See Protocol PO DAILY 90 days Eliquis (apixaban) 2.5 mg PO BID 90 days NS ferrous sulfate 325 mg PO BID [FRONT-WHEELED WALKER As directed ; Ht = 5'6 ; Wt = 164 lbs; Rx is for INDEFINITE/PERMANENT/FOREVER/LIFETIME USE] lorazepam 0.5 mg PO BID PRN omeprazole 40 mg PO DAILY@0630 raloxifene 60 mg PO DAILY 90 days [SHOWER CHAIR As directed; Rx is for INDEFINITE/PERMANENT/FOREVER/LIFETIME USE] sucralfate (Carafate) 1 g PO QIDACHS 30 days Tobacco use date assessed: 08/15/23 Fall risk assessment: No Falls in past year Last assessed Fall Risk: 08/15/23 Dental Screening Dental Screen Date: 04/14/23 HPI PAF, GI bleed, hyperlipidemia HPI Details Patient comes in today for her follow up visit States that she feels okay She denies any headaches or dizziness Denies any chest pains, no increased shortness of breath No nausea/vomiting, no abdominal pain No change in bowel habits noted Had her follow-up labs done a couple of weeks ago - to discuss her results [facility] Medical History Afib Hypertrophic cardiomyopathy Atrial fibrillation with RVR Anemia Gastric ulcer History of blood transfusion Vitamin B12 deficiency Overweight (BMI 25.0-29.9) Primary osteoarthritis of hand Vitamin D deficiency Osteopenia Anemia Cardiac murmur Hiatal hernia Sevilla's esophagus Benign essential hypertension Pure hypercholesterolemia Surgical History History of esophagogastroduodenoscopy (EGD) History of appendectomy History of hysterectomy Family History Father Hypertension Mother Stroke Social History Household Members: Spouse Housing: House Do you presently have visiting nurse or other home services: No Alcohol intake: never Patient Tobacco Use Status: Never used Tobacco e-Cigarette/Vaping Use: Never Used Second Hand Smoke Exposure: No Advance Directives Date on File: 01/22/21 service: No Current occupational status: retired Cognitive needs: Yes (walker, cane) Hearing needs: No Vision needs: Yes (glasses) Questionnaire Thrive Questionnaire Date Thrive assessed: 04/14/23 JULIA-7 AMB Questionnaire JULIA-7 Date JULIA - 7 assessed: 04/14/23 Source: Developed by Drs. Emiliano Ferrari, Laura Barlow, Nico Ely and colleagues, with an educational florentino from [employer] Review of Systems Const Denies chills, Denies fatigue, Denies fever(s) and Denies headache(s) ENT Denies dysphagia, Denies dizziness, Denies otalgia, Denies headache(s), Reports hearing loss, Denies neck pain, Denies odynophagia and Denies sore throat Card Denies chest pain, Denies palpitations and Denies dyspnea Resp Denies cough and Denies dyspnea GI Denies abdominal pain, Denies constipation, Denies dysphagia, Denies heartburn, Denies diarrhea, Denies nausea, Denies odynophagia and Denies vomiting Denies difficulty voiding, Denies nocturia, Denies dysuria and Denies urinary urgency Musc Reports back pain (recurrent, over the middle of her back) and Denies neck pain Skin/Breast Denies rash Neuro Denies dizziness and Denies headache(s) Endo Denies fatigue and Denies palpitations Physical exam (Primary Care) Vital Signs: Last Vital Signs Pulse 74 08/15/23 14:17 BP 140/64 H 08/15/23 14:17 Pulse Ox 96 08/15/23 14:17 Oxygen Delivery Method Room Air 08/15/23 14:17 BMI result Body Mass Index 25.7 Tobacco/Smoking Status: Tobacco use Status Tobacco use date assessed 08/15/23 08/15/23 14:23 Patient Tobacco Use Status Never used Tobacco 08/15/23 14:23 e-Cigarette/Vaping Use Never Used 08/15/23 14:23 Thrive Assessment: Date of Thrive Assessment Date Thrive assessed 04/14/23 08/15/23 14:23 Const General: no acute distress and alert HENMT Ears: TM's normal bilaterally and EAC's normal Throat: Yes posterior oropharynx normal and Yes tonsils normal (no TP congestion) Neck Neck: Yes no lymphadenopathy and Yes supple Thyroid: Thyroid normal Resp Auscultation: clear to auscultation bilaterally, no rales and no wheezes Cardio Rate: regular rate Rhythm: regular rhythm Heart sounds: Murmur heart sound present systolic soft, II/ and at the apex GI Palpation (GI): Soft to palpation and nontender Auscultation: normal bowel sounds General: Yes no CVA tenderness Back/Spine/Pelvis Back: no CVA tenderness Thoracic/Lumbar Spine: thoracic spinal tenderness Skin Rashes: no rashes Extrem General: Yes no clubbing, cyanosis or edema Results Reviewed Results Reviewed: Laboratory Tests 08/04/23 08/04/23 09:58 09:59 WBC 6.9 Hgb 13.4 Hct 40.5 Plt Count 233 Sodium 143 Potassium 4.3 Creatinine 0.84 Estimated GFR > 60 Fasting Glucose 87 AST 29 ALT 37 H Triglycerides 97 Cholesterol 160 LDL Cholesterol, Calc 86 HDL Cholesterol 55 25-OH Vitamin D Total 46.7 TSH 3.57 Free T4 1.03 Ur Specific [place] 1.015 Urine Protein Negative Urine Glucose (UA) Negative Urine Blood Negative Urine Nitrite Negative Ur Leukocyte Esterase Trace H Assessment and Plan Assessment & Plan (1) Paroxysmal atrial fibrillation: Code(s): I48.0 - Paroxysmal atrial fibrillation Plan: Patient currently remains in sinus rhythm - was cardioverted on Amiodarone Continue Amiodarone 200 mg QD and Dilitiazem ER 240 mg QD She was on Eliquis for thromboembolism prophylaxis previously but this was discontinued last year due to GI bleeding; patient has not yet resumed Eliquis Because of her GI bleeding and anemia, she has been advised to consider getting a Watchman device to obviate her need for long-term anticoagulation but she is currently still thinking about whether she wants to proceed with this or not She was seen by cardiology and has been referred to Dr. Sharma for consideration for either a Watchman device or ablation Follow up with cardiology (Dr. Funk) as scheduled (2) Benign essential hypertension: Code(s): I10 - Essential (primary) hypertension Plan: Reinforced low sodium diet - goal is systolic BP of at least 130 to 140 mm or less Continue Diltiazem 240 mg QD (was on Amlodipine 2.5 mg QD in the past but this was stopped when she was started on Diltiazem) (3) Pure hypercholesterolemia: Code(s): E78.00 - Pure hypercholesterolemia, unspecified Plan: Results of her labs done a couple of weeks ago reviewed and discussed with patient Reinforced low cholesterol diet Continue Atorvastatin 10 mg QD Will recheck her labs and fasting lipids in 4 months for follow up (4) Acute gastrointestinal bleeding: Code(s): K92.2 - Gastrointestinal hemorrhage, unspecified Plan: Resolved with no recurrence EGD done on 06/24/22 and 06/27/22 revealed (+) ulcerated gastric mass and Bx done on 06/27/22 came out benign - was a hyperplastic mucosal polyp with background mild chronic inactive inflammation with no H pylori Continue Omeprazole 40 mg QD and Carafate 1 gm QID Follow up with GI as scheduled (5) Anemia: Code(s): D64.9 - Anemia, unspecified Qualifiers: Anemia type: other cause Other causes of anemia: acute posthemorrhagic Qualified Code(s): D62 - Acute posthemorrhagic anemia Plan: Resolved/corrected - was mostly due to acute GI bleed; patient required blood transfusion again during her last hospital admission H/H is now normal at 13.4/40.5 on her labs done a couple of weeks ago Will continue to monitor her CBC regularly (6) Osteopenia: Code(s): M85.80 - Other specified disorders of bone density and structure, unspecified site Qualifiers: Osteopenia location: unspecified Qualified Code(s): M85.80 - Other specified disorders of bone density and structure, unspecified site Plan: Continue Raloxifene 60 mg QD Repeat BMD done on 10/07/2018 showed no significant change in BMD from 04/2014 - will continue to monitor every few years Patient is encouraged again to continue to stay active and exercise regularly as tolerated (7) Vitamin D deficiency: Code(s): E55.9 - Vitamin D deficiency, unspecified Plan: Corrected - continue Vitamin D3 1000 units QD (8) Back pain: Code(s): M54.9 - Dorsalgia, unspecified Qualifiers: Back pain laterality: midline Back pain location: thoracic back pain Chronicity: acute Qualified Code(s): M54.6 - Pain in thoracic spine Plan: Thoracic spine x-rays done a few months ago revealed (+) 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 (9) Vitamin B12 deficiency: Code(s): E53.8 - Deficiency of other specified B group vitamins Plan: Continue Vitamin B12 1000 mcg 1 tablet 2 to 3 times a week She was previously advised to lower her Vitamin B12 1000 mcg tablets intake as her level was very high - this has improved back to normal since then (10) Elevated TSH: Code(s): R79.89 - Other specified abnormal findings of blood chemistry Plan: Her TSH is now normal on her recent labs; her free T4 remains normal Patient is clinically euthyroid at present Will recheck her TFTs in 4 months for follow up (11) Overweight (BMI 25.0-29.9): Code(s): E66.3 - Overweight Plan: Reinforced diet/exercise as tolerated/lose weight Plan Follow up in 4 months Orders: Orders Lipid Panel 4 Months E78.00 - Pure hypercholesterolemia, unspecified Vitamin D 25-OH Total 4 Months E55.9 - Vitamin D deficiency, unspecified UA CC w/rflx Micro + Cult 4 Months R30.0 - Dysuria Complete Blood Count Auto Diff 4 Months D64.9 - Anemia, unspecified Comprehensive [place]. Panel Fast 4 Months E78.00 - Pure hypercholesterolemia, unspecified Thyroid Stimulating Hormone 4 Months R79.89 - Other specified abnormal findings of blood chemistry Free T4 (Free Thyroxine) 4 Months R79.89 - Other specified abnormal findings of blood chemistry Vitamin B12 and Folate 4 Months E53.8 - Deficiency of other specified B group vitamins Coding Level of Care Code Est Pt Level 4 (23322) Diagnoses Paroxysmal atrial fibrillation I48.0 Benign essential hypertension I10 Pure hypercholesterolemia E78.00 Acute gastrointestinal bleeding K92.2 Anemia due to acute blood loss D62 Anemia type: other cause Other causes of anemia: acute posthemorrhagic Osteopenia, unspecified location M85.80 Osteopenia location: unspecified Vitamin D deficiency E55.9 Acute midline thoracic back pain M54.6 Back pain laterality: midline Back pain location: thoracic back pain Chronicity: acute Vitamin B12 deficiency E53.8 Elevated TSH R79.89 Overweight (BMI 25.0-29.9) E66.3
[2023-08-15 14:17] VITALS: BP 140/64; PULSE 74; O2SAT 96; BMI 25.7
== END 2023-08-15 14:51 | disposition home or self-care (01) ==
PROVIDERS: PCP Internal Medicine; Visit Provider Internal Medicine
DX: I48.0 Paroxysmal atrial fibrillation (principal); I10 Essential (primary) hypertension; E78.00 Pure hypercholesterolemia, unspecified; K92.2 Gastrointestinal hemorrhage, unspecified; D62 Acute posthemorrhagic anemia; M85.80 Other specified disorders of bone density and structure, unspecified site; E55.9 Vitamin D deficiency, unspecified; M54.6 Pain in thoracic spine; E53.8 Deficiency of other specified B group vitamins; R79.89 Other specified abnormal findings of blood chemistry; E66.3 Overweight
CPT/HCPCS: 99214

== ENCOUNTER 2023-08-28 10:06 | Outpatient (REF) | payer BC, SELFPAY | END 2023-08-28 10:07 | disposition home or self-care (01) | LOC: HO.MAMMO 10:06 | PROVIDERS: PCP Internal Medicine; Visit Provider Internal Medicine | DX: Z12.31 Encounter for screening mammogram for malignant neoplasm of breast (principal) | CPT/HCPCS: 77063; 77067 ==

== ENCOUNTER → 2023-08-28 10:15 | Outpatient (BNV) | payer BC, SELFPAY | PROVIDERS: PCP Internal Medicine; Visit Provider Radiology Diagnostic Radiology | DX: Z12.31 Encounter for screening mammogram for malignant neoplasm of breast (principal) | CPT/HCPCS: 77063; 77067 ==

== ENCOUNTER 2023-11-19 14:13 | Outpatient (REF) | payer BC, SELFPAY ==
[2023-11-19 18:21] LABS: Appearance Urine Clear; Color Urine Yellow; Glucose Urine UA Negative (Negative); Leukocyte Esterase Urine Moderate (2+) (Negative); Nitrite Urine Negative (Negative); PH 5.5 (5.0-9.0); Specific Gravity - Urine 1.015 (1.005-1.025); UMIC TRIGGER UACC YES; Urine Blood Negative (Negative); Urine Ketones Negative (Negative); Urine Protein Negative (Neg-Trace)
[2023-11-19 18:35] LABS: Bacteria Urine None Seen (None Seen); Hyaline Casts Urine 0-2 /LPF (0-2); RBC Urine 0-2 /HPF (0-2); Squamous Epithelial Cell Urine 0-2 /HPF (0-2); UACC Culture Trigger YES; WBC Urine 21-50 /HPF (0-5)
== END 2023-11-19 14:14 | disposition home or self-care (01) ==
LOC: HO.LAB 14:13
PROVIDERS: PCP Internal Medicine; Visit Provider Internal Medicine
DX: R35.0 Frequency of micturition (principal)
CPT/HCPCS: 81001; 87086

== ENCOUNTER 2023-12-10 09:18 | Outpatient (REF) | payer BC, SELFPAY ==
[2023-12-10 09:38] LABS: MANUAL DIFF FLAG NO
[2023-12-10 11:08] LABS: Basophils Absolute Auto 0.1 X10*3/uL (0.0-0.2); Basophils Percent Auto 0.6 % (0-2); Eosinophils Absolute Auto 0.2 X10*3/uL (0.0-0.4); Eosinophils Percent Auto 3.1 % (0-4); Hematocrit 41.4 % (37.0-47.0); Imm Gran Abs Auto 0.03 X10*3/uL (0.00-0.03); Imm Gran Pct Auto 0.4 % (0.0-0.4); Lymphocytes Absolute Auto 1.1 X10*3/uL (1.2-4.9); Lymphocytes Percent Auto 14.5 % (20-40); Mean Corpuscular HGB Conc 33.8 g/dl (31.0-35.0); Mean Corpuscular Hemoglobin 31.4 pg (27.0-33.0); Mean Corpuscular Volume 92.8 fL (80.0-98.0); Mean Platelet Volume 10.1 fL (9.4-12.3); Monocytes Absolute Auto 0.6 X10*3/uL (0.1-1.2); Monocytes Percent Auto 7.1 % (2-11); Neutrophils Absolute Auto 5.8 x10*3/uL (2.0-8.3); Neutrophils Percent Auto 74.3 % (45-73); Platelet Count 257 X10*3/uL (160-400); Red Blood Count 4.46 X10*6/uL (4.20-5.50); Red Cell Distribution Width 12.6 % (11.0-16.0); White Blood Count 7.8 X10*3/uL (4.8-10.8)
[2023-12-10 12:03] LABS: Anion Gap 9 (12-20)
[2023-12-10 12:07] LABS: Appearance Urine Clear; Color Urine Yellow; Glucose Urine UA Negative (Negative); Leukocyte Esterase Urine Trace (Negative); Nitrite Urine Negative (Negative); Specific Gravity - Urine 1.015 (1.005-1.025); UMIC TRIGGER UACC YES; Urine Blood Negative (Negative); Urine Ketones Negative (Negative); Urine Protein Negative (Neg-Trace)
[2023-12-10 12:10] LABS: Bacteria Urine None Seen (None Seen); Hyaline Casts Urine 0-2 /LPF (0-2); RBC Urine 0-2 /HPF (0-2); Squamous Epithelial Cell Urine 0-2 /HPF (0-2); WBC Urine 0-5 /HPF (0-5)
[2023-12-10 12:14] LABS: Alanine Aminotransferase 47 U/L (0-31); Alkaline Phosphatase 50 U/L (39-117); Aspartate Amino Transferase 34 U/L (5-31); Bilirubin Total 0.6 mg/dL (0.0-1.0); Blood Urea Nitrogen 11 mg/dL (9-16); Calcium 9.2 mg/dL (8.4-10.2); Carbon Dioxide 29 mmol/L (22-29); Chloride 106 mmol/L (96-108); Cholesterol 172 mg/dL (<200); Estimated Glomerular Filt Rate > 60; Glucose Fasting 75 mg/dL (60-99); HDL Cholesterol 52 mg/dL (>40); LDL Cholesterol Calculated 101 mg/dL (<100); Potassium 3.9 mmol/L (3.3-5.1); Sodium 140 mmol/L (135-145); Total Protein 6.8 g/dL (6.5-8.0); Triglycerides 99 mg/dL (<150)
[2023-12-10 12:17] LABS: Folate 8.6 ng/mL (> or = 4.0); Vitamin B12 855 pg/mL (200-900)
[2023-12-10 12:46] LABS: Free T4 (Free Thyroxine) 1.15 ng/dL (0.71-1.85); Thyroid Stimulating Hormone 3.62 uIU/mL (0.32-4.0)
== END 2023-12-10 09:19 | disposition home or self-care (01) ==
LOC: HO.LAB 09:18
PROVIDERS: PCP Internal Medicine; Visit Provider Internal Medicine
DX: D64.9 Anemia, unspecified (principal); E78.00 Pure hypercholesterolemia, unspecified; R79.89 Other specified abnormal findings of blood chemistry; E53.8 Deficiency of other specified B group vitamins; E55.9 Vitamin D deficiency, unspecified
CPT/HCPCS: 36415; 80053; 80061; 81001; 82306; 82607; 82746; 84439; 84443; 85025

== ENCOUNTER 2023-12-19 13:27 | Outpatient (AMB) | payer BC, SELFPAY ==
--- NOTE | 2023-12-19 13:32 | A.OFFPC_ITS ---
Vital Signs 12/19/23 13:33 12/19/23 14:02 Height 5 ft 6 in Weight 160 lb 6 oz BMI 25.9 BP 160/64 H 160/80 H Blood Pressure Location Lt brachial Lt brachial Position Sitting Sitting Pulse 59 Pulse Source Pulse Oximeter Pulse Oximetry (%) 96 Oxygen Delivery Method Room Air Intake Visit Reasons: 4mth f/u Hog Operator Required: No Accompanied by: Spouse Allergies enflurane [ENFLURANE] Allergy (Severe, Verified 12/19/23 13:50) Per Patient Liver toxicity piperacillin [Zosyn] Allergy (Severe, Verified 12/19/23 13:50) Rash tazobactam [Zosyn] Allergy (Severe, Verified 12/19/23 13:50) Rash Medication List - Last Reconciled 12/19/23 by Colt Teran MD amiodarone 200 mg PO DAILY atorvastatin 10 mg PO DAILY cholecalciferol (vitamin D3) 25 mcg PO DAILY 90 days cyanocobalamin (vitamin B-12) (Vitamin B-12) 1,000 mcg PO DAILY 90 days diltiazem HCl CD 240 mg See Protocol PO DAILY 90 days Eliquis (apixaban) 2.5 mg PO BID 90 days NS ferrous sulfate 325 mg PO BID [FRONT-WHEELED WALKER As directed ; Ht = 5'6 ; Wt = 164 lbs; Rx is for INDEFINITE/PERMANENT/FOREVER/LIFETIME USE] lorazepam 0.5 mg PO BID PRN omeprazole 40 mg PO DAILY@0630 raloxifene 60 mg PO DAILY 90 days [SHOWER CHAIR As directed; Rx is for INDEFINITE/PERMANENT/FOREVER/LIFETIME USE] sucralfate (Carafate) 1 g PO QIDACHS 30 days Tobacco use date assessed: 12/19/23 Fall risk assessment: 1 Fall in past year Last assessed Fall Risk: 12/19/23 Dental Screening Dental Screen Date: 12/19/23 Did you have a dental visit in the last 12 months?: Yes Did you have a dental problem in the last 6 months where you did not have access to dental care?: No Was dental information given to patient?: Patient has dentist HPI 4mth f/u HPI Details Patient comes in today for her follow up visit States that she feels okay She denies any headaches or dizziness Denies any chest pains, no increased shortness of breath No nausea/vomiting, no abdominal pain No change in bowel habits noted She had her follow-up labs done last week - to discuss her results Her blood pressure log that she brought in today shows her systolic BPs mostly between 112 to 136 mm [facility] Medical History Afib Hypertrophic cardiomyopathy Atrial fibrillation with RVR Anemia Gastric ulcer History of blood transfusion Vitamin B12 deficiency Overweight (BMI 25.0-29.9) Primary osteoarthritis of hand Vitamin D deficiency Osteopenia Anemia Cardiac murmur Hiatal hernia Sevilla's esophagus Benign essential hypertension Pure hypercholesterolemia Surgical History History of esophagogastroduodenoscopy (EGD) History of appendectomy History of hysterectomy Family History Father Hypertension Mother Stroke Social History Household Members: Spouse Housing: House Do you presently have visiting nurse or other home services: No Alcohol intake: never Patient Tobacco Use Status: Never used Tobacco e-Cigarette/Vaping Use: Never Used Second Hand Smoke Exposure: No Advance Directives Date on File: 01/22/21 service: No Current occupational status: retired Cognitive needs: Yes (walker, cane) Hearing needs: No Vision needs: Yes (glasses) Questionnaire PHQ-9 Over the last 2 weeks, how often have you been bothered by any of the following problems? 1. Little interest or pleasure in doing things: not at all 2. Feeling down, depressed, or hopeless: not at all 3. Trouble falling or staying asleep, or sleeping too much: not at all 4. Feeling tired or having little energy: not at all 5. Poor appetite or overeating: not at all 6. Feeling bad about yourself - or that you are a failure or have let yourself or your family down: not at all 7. Trouble concentrating on things, such as reading the newspaper or watching television: not at all 8. Moving or speaking so slowly that other people could have noticed. Or the opposite - being so fidgety or restless that you have been moving around a lot more than usual: not at all 9. Thoughts that you would be better off or of hurting yourself in some way: not at all Total score: 0 Depression Screening Interpretation: Negative Depression Screening Done: Yes 27454 - PHQ-9 Billing: Yes Source: Developed by Drs. Emiliano Ferrari, Laura Barlow, Nico Ely and colleagues, with an educational florentino from [employer]. Thrive Questionnaire Date Thrive assessed: 12/19/23 I am a: Patient What is your living situation today?: I have a steady place to live Within the past 12 months, did the food you bought not last and you didn't have the money to get more?: Never true Within the past 12 months, did you worry whether your food would run out before you got money to buy more?: Never true Do you have trouble paying for medicines?: No Do you have trouble getting transportation to medical appointments?: No Do you have trouble paying your heating and electricity bill?: No Do you have trouble taking care of your child, family member or friend?: No Do you have trouble with day-to-day activities such as bathing, preparing meals, shopping, managing finances, etc.?: No Are you currently unemployed and looking for a job?: No Are you interested in more education?: No Please select the resources that you would like help with: None Currently or been in a relationship where the following occur: No concerns reported THRIVE Score: 0 AUDIT C Alcohol Use Questionnaire (AUDIT-C) 1. How often do you have a drink containing alcohol?: Never 3. How often do you have six or more drinks on one occasion?: Never Total Score: 0 Score Reviewed/Action Taken: Yes JULIA-7 AMB Questionnaire JULIA-7 Date JULIA - 7 assessed: 12/19/23 Feeling nervous, anxious, or on edge: 0 = Not at all Not being able to stop or control worryin = Not at all Worrying too much about different things: 0 = Not at all Trouble relaxin = Not at all Being so restless that it is hard to sit still: 0 = Not at all Becoming easily annoyed or irritable: 0 = Not at all Feeling afraid as if something awful might happen: 0 = Not at all Total JULIA-7 score (0-4 normal; 5-9 mild; 10-14 moderate; 15-21 severe): 0 Source: Developed by Drs. Emiliano Ferrari, Laura Barlow, Nico Ely and colleagues, with an educational florentino from [employer]. Review of Systems Const Denies chills, Denies fatigue, Denies fever(s) and Denies headache(s) ENT Denies dysphagia, Denies dizziness, Denies otalgia, Denies headache(s), Reports hearing loss, Denies neck pain, Denies odynophagia and Denies sore throat Card Denies chest pain, Denies palpitations and Denies dyspnea Resp Denies cough and Denies dyspnea GI Denies abdominal pain, Denies constipation, Denies dysphagia, Denies heartburn, Denies diarrhea, Denies nausea, Denies odynophagia and Denies vomiting Denies difficulty voiding, Denies nocturia, Denies dysuria and Denies urinary urgency Musc Reports back pain (recurrent, over the middle of her back) and Denies neck pain Skin/Breast Denies rash Neuro Denies dizziness and Denies headache(s) Endo Denies fatigue and Denies palpitations Physical exam (Primary Care) Vital Signs: Last Vital Signs Pulse 59 12/19/23 13:33 BP 160/64 H 12/19/23 13:33 Pulse Ox 96 12/19/23 13:33 Oxygen Delivery Method Room Air 12/19/23 13:33 BMI result Body Mass Index 25.9 Tobacco/Smoking Status: Tobacco use Status Tobacco use date assessed 12/19/23 12/19/23 13:35 Patient Tobacco Use Status Never used Tobacco 12/19/23 13:35 e-Cigarette/Vaping Use Never Used 12/19/23 13:35 PHQ-9: PHQ-9 Score PHQ-9: Total score 0 12/19/23 13:35 Depression Screening Interpretation: Negative Thrive Assessment: Date of Thrive Assessment Date Thrive assessed 12/19/23 12/19/23 13:35 Currently or been in a relationship where the following occur: No concerns reported Const General: no acute distress and alert HENMT Ears: TM's normal bilaterally and EAC's normal Throat: Yes posterior oropharynx normal and Yes tonsils normal (no TP congestion) Neck Neck: Yes no lymphadenopathy and Yes supple Thyroid: Thyroid normal Resp Auscultation: clear to auscultation bilaterally, no rales and no wheezes Cardio Rate: regular rate Rhythm: regular rhythm Heart sounds: Murmur heart sound present systolic soft, III/ and at the apex GI Palpation (GI): Soft to palpation and nontender Auscultation: normal bowel sounds General: Yes no CVA tenderness Back/Spine/Pelvis Back: no CVA tenderness Thoracic/Lumbar Spine: thoracic spinal tenderness Skin Rashes: no rashes Extrem General: Yes no clubbing, cyanosis or edema Results Reviewed Results Reviewed: Laboratory Tests 12/10/23 12/10/23 09:25 09:37 WBC 7.8 Hgb 14.0 Hct 41.4 Plt Count 257 Sodium 140 Potassium 3.9 Creatinine 0.85 Estimated GFR > 60 Fasting Glucose 75 Calcium 9.2 AST 34 H ALT 47 H Triglycerides 99 Cholesterol 172 LDL Cholesterol, Calc 101 H HDL Cholesterol 52 Vitamin B12 855 25-OH Vitamin D Total 50.0 TSH 3.62 Free T4 1.15 Ur Specific [place] 1.015 Urine Protein Negative Urine Glucose (UA) Negative Urine Blood Negative Urine Nitrite Negative Ur Leukocyte Esterase Trace H Assessment and Plan Assessment & Plan (1) Paroxysmal atrial fibrillation: Code(s): I48.0 - Paroxysmal atrial fibrillation Plan: Patient currently remains in sinus rhythm - was cardioverted on Amiodarone Continue Amiodarone 200 mg QD and Dilitiazem ER 240 mg QD She was on Eliquis for thromboembolism prophylaxis previously but this was discontinued for a time last year due to GI bleeding; she has since gone back on Eliquis 2.5 mg BID and is currently still on it Because of her GI bleeding and anemia, she has been advised to consider getting a Watchman device to obviate her need for long-term anticoagulation but she has decided against it after giving it some thought States that Dr. Funk just repeated an echocardiogram on her and she will be seeing him in a couple of weeks for follow up Dr. Funk is also reportedly considering referring her to the [facility] for further evaluation as he feels that patient's hypertrophic cardiomyopathy is getting worse now (2) Benign essential hypertension: Code(s): I10 - Essential (primary) hypertension Plan: Reinforced low sodium diet - goal is systolic BP of at least 130 to 140 mm or less Continue Diltiazem 240 mg QD (was on Amlodipine 2.5 mg QD in the past but this was stopped when she was started on Diltiazem) (3) Pure hypercholesterolemia: Code(s): E78.00 - Pure hypercholesterolemia, unspecified Plan: Results of her labs done last week reviewed and discussed with patient - she is advised that her total and LDL cholesterol levels have increased slightly from previous Reinforced low cholesterol diet Continue Atorvastatin 10 mg QD Will recheck her labs and fasting lipids in 4 months for follow up (4) Acute gastrointestinal bleeding: Code(s): K92.2 - Gastrointestinal hemorrhage, unspecified Plan: Resolved with no recurrence EGD done on 06/24/22 and 06/27/22 revealed (+) ulcerated gastric mass and Bx done on 06/27/22 came out benign - was a hyperplastic mucosal polyp with background mild chronic inactive inflammation with no H pylori Continue Omeprazole 40 mg QD and Carafate 1 gm QID Follow up with GI as scheduled (5) Anemia: Code(s): D64.9 - Anemia, unspecified Qualifiers: Anemia type: other cause Other causes of anemia: acute posthemorrhagic Qualified Code(s): D62 - Acute posthemorrhagic anemia Plan: Resolved/corrected - was mostly due to acute GI bleed; patient required blood transfusion again during her last hospital admission H/H remain normal at 14.0/41.4 on her labs done last week Will continue to monitor her CBC regularly (6) Osteopenia: Code(s): M85.80 - Other specified disorders of bone density and structure, unspecified site Qualifiers: Osteopenia location: unspecified Qualified Code(s): M85.80 - Other specified disorders of bone density and structure, unspecified site Plan: Continue Raloxifene 60 mg QD Repeat BMD done on 10/07/2018 showed no significant change in BMD from 04/2014 - will continue to monitor every few years Patient is encouraged again to continue to stay active and exercise regularly as tolerated (7) Vitamin D deficiency: Code(s): E55.9 - Vitamin D deficiency, unspecified Plan: Continue Vitamin D3 1000 units QD (8) Back pain: Code(s): M54.9 - Dorsalgia, unspecified Qualifiers: Back pain location: thoracic back pain Chronicity: acute Back pain laterality: midline Qualified Code(s): M54.6 - Pain in thoracic spine Plan: Thoracic spine x-rays done a few months ago revealed (+) 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 (9) Vitamin B12 deficiency: Code(s): E53.8 - Deficiency of other specified B group vitamins Plan: Continue Vitamin B12 1000 mcg 1 tablet 2 to 3 times a week She was previously advised to lower her Vitamin B12 1000 mcg tablets intake as her level was very high - this has improved back to normal since then (10) Elevated TSH: Code(s): R79.89 - Other specified abnormal findings of blood chemistry Plan: Her TSH remains normal on her recent labs; her free T4 remains normal Patient is clinically euthyroid at present Will recheck her TFTs in 4 months for follow up (11) Overweight (BMI 25.0-29.9): Code(s): E66.3 - Overweight Plan: Reinforced diet/exercise as tolerated/lose weight Plan Follow up in 4 months Orders: Orders Lipid Panel 4 Months E78.00 - Pure hypercholesterolemia, unspecified UA CC w/rflx Micro + Cult 4 Months R30.0 - Dysuria Complete Blood Count Auto Diff 4 Months D64.9 - Anemia, unspecified Comprehensive [place]. Panel Fast 4 Months E78.00 - Pure hypercholesterolemia, unspecified Thyroid Stimulating Hormone 4 Months R79.89 - Other specified abnormal findings of blood chemistry Free T4 (Free Thyroxine) 4 Months R79.89 - Other specified abnormal findings of blood chemistry Vitamin D 25-OH Total 4 Months E55.9 - Vitamin D deficiency, unspecified Vitamin B12 and Folate 4 Months E53.8 - Deficiency of other specified B group vitamins Coding Level of Care Code Est Pt Level 4 (32091) Diagnoses Paroxysmal atrial fibrillation I48.0 Benign essential hypertension I10 Pure hypercholesterolemia E78.00 Acute gastrointestinal bleeding K92.2 Anemia due to acute blood loss D62 Anemia type: other cause Other causes of anemia: acute posthemorrhagic Osteopenia, unspecified location M85.80 Osteopenia location: unspecified Vitamin D deficiency E55.9 Acute midline thoracic back pain M54.6 Back pain location: thoracic back pain Chronicity: acute Back pain laterality: midline Vitamin B12 deficiency E53.8 Elevated TSH R79.89 Overweight (BMI 25.0-29.9) E66.3
[2023-12-19 13:33] VITALS: BP 160/64; PULSE 59; O2SAT 96; BMI 25.9
[2023-12-19 14:02] VITALS: BP 160/80
== END 2023-12-19 14:11 | disposition home or self-care (01) ==
PROVIDERS: PCP Internal Medicine; Visit Provider Internal Medicine
DX: I48.0 Paroxysmal atrial fibrillation (principal); I10 Essential (primary) hypertension; E78.00 Pure hypercholesterolemia, unspecified; K92.2 Gastrointestinal hemorrhage, unspecified; D62 Acute posthemorrhagic anemia; M85.80 Other specified disorders of bone density and structure, unspecified site; E55.9 Vitamin D deficiency, unspecified; M54.6 Pain in thoracic spine; E53.8 Deficiency of other specified B group vitamins; R79.89 Other specified abnormal findings of blood chemistry; E66.3 Overweight

== ENCOUNTER → 2023-12-19 13:27 | Outpatient (BNVA) | payer BC, SELFPAY | PROVIDERS: PCP Internal Medicine; Visit Provider Internal Medicine ==

== ENCOUNTER 2024-04-13 10:10 | Outpatient (REF) | payer BC, SELFPAY ==
[2024-04-13 10:26] LABS: MANUAL DIFF FLAG NO
[2024-04-13 10:35] LABS: Basophils Absolute Auto 0.1 X10*3/uL (0.0-0.2); Basophils Percent Auto 0.8 % (0-2); Eosinophils Absolute Auto 0.3 X10*3/uL (0.0-0.4); Eosinophils Percent Auto 3.7 % (0-4); Hematocrit 42.2 % (37.0-47.0); Hemoglobin 13.7 g/dl (12.0-16.0); Imm Gran Abs Auto 0.04 X10*3/uL (0.00-0.03); Imm Gran Pct Auto 0.5 % (0.0-0.4); Lymphocytes Absolute Auto 1.6 X10*3/uL (1.2-4.9); Lymphocytes Percent Auto 18.7 % (20-40); Mean Corpuscular HGB Conc 32.5 g/dl (31.0-35.0); Mean Corpuscular Hemoglobin 30.4 pg (27.0-33.0); Mean Corpuscular Volume 93.6 fL (80.0-98.0); Mean Platelet Volume 9.6 fL (9.4-12.3); Monocytes Absolute Auto 0.7 X10*3/uL (0.1-1.2); Monocytes Percent Auto 7.8 % (2-11); Neutrophils Absolute Auto 5.7 x10*3/uL (2.0-8.3); Neutrophils Percent Auto 68.5 % (45-73); Platelet Count 248 X10*3/uL (160-400); Red Blood Count 4.51 X10*6/uL (4.20-5.50); Red Cell Distribution Width 12.7 % (11.0-16.0); White Blood Count 8.3 X10*3/uL (4.8-10.8)
[2024-04-13 11:46] LABS: Alanine Aminotransferase 75 U/L (0-31); Alkaline Phosphatase 48 U/L (39-117); Anion Gap 10 (12-20); Aspartate Amino Transferase 58 U/L (5-31); Bilirubin Total 0.5 mg/dL (0.0-1.0); Blood Urea Nitrogen 13 mg/dL (9-16); Calcium 9.1 mg/dL (8.4-10.2); Carbon Dioxide 28 mmol/L (22-29); Chloride 107 mmol/L (96-108); Cholesterol 175 mg/dL (<200); Estimated Glomerular Filt Rate > 60; Free T4 (Free Thyroxine) 1.47 ng/dL (0.71-1.85); Glucose Fasting 83 mg/dL (60-99); HDL Cholesterol 51 mg/dL (>40); LDL Cholesterol Calculated 103 mg/dL (<100); Potassium 3.8 mmol/L (3.3-5.1); Sodium 141 mmol/L (135-145); Thyroid Stimulating Hormone 3.62 uIU/mL (0.32-4.0); Total Protein 6.9 g/dL (6.5-8.0); Triglycerides 105 mg/dL (<150); Vitamin D 25-OH Total 45.9 ng/mL (>30)
[2024-04-13 11:57] LABS: Appearance Urine Cloudy; Color Urine Yellow; Glucose Urine UA Negative (Negative); Leukocyte Esterase Urine Large (3+) (Negative); Nitrite Urine Negative (Negative); UMIC TRIGGER UACC YES; Urine Blood Large (3+) (Negative); Urine Ketones Negative (Negative); Urine Protein Trace mg/dL (Neg-Trace)
[2024-04-13 11:57] LABS: Folate 11.6 ng/mL (> or = 4.0); Vitamin B12 787 pg/mL (200-900)
[2024-04-13 12:10] LABS: Bacteria Urine 4+ (None Seen); Hyaline Casts Urine 0-2 /LPF (0-2); RBC Urine >20 /HPF (0-2); Squamous Epithelial Cell Urine 0-2 /HPF (0-2); UACC Culture Trigger YES; WBC Urine >50 /HPF (0-5)
== END 2024-04-13 10:11 | disposition home or self-care (01) ==
LOC: HO.LAB 10:10
PROVIDERS: PCP Internal Medicine; Visit Provider Internal Medicine
DX: R35.0 Frequency of micturition (principal); D64.9 Anemia, unspecified; R79.89 Other specified abnormal findings of blood chemistry; E78.00 Pure hypercholesterolemia, unspecified; E55.9 Vitamin D deficiency, unspecified; E53.8 Deficiency of other specified B group vitamins
CPT/HCPCS: 36415; 80053; 80061; 81001; 82306; 82607; 82746; 84439; 84443; 85025; 87086; 87088; 87186

== ENCOUNTER 2024-04-20 14:12 | Outpatient (AMB) | payer BC, SELFPAY ==
--- NOTE | 2024-04-20 14:18 | MHC.PC.OV ---
Vital Signs 04/20/24 14:30 Height 5 ft 6 in Weight 164 lb 8 oz BMI 26.5 BP 162/80 H Blood Pressure Location Lt brachial Position Sitting Pulse 71 Pulse Source Pulse Oximeter Pulse Oximetry (%) 96 Oxygen Delivery Method Room Air Intake Visit Reasons: 4 Months f/u Door Liner Required: No Accompanied by: Spouse Allergies enflurane [ENFLURANE] Allergy (Severe, Verified 04/20/24 14:50) Per Patient Liver toxicity piperacillin [Zosyn] Allergy (Severe, Verified 04/20/24 14:50) Rash tazobactam [Zosyn] Allergy (Severe, Verified 04/20/24 14:50) Rash Medication List - Last Reconciled 04/20/24 by Colt Teran MD amiodarone 200 mg PO DAILY atorvastatin 10 mg PO DAILY cholecalciferol (vitamin D3) 25 mcg PO DAILY 90 days cyanocobalamin (vitamin B-12) (Vitamin B-12) 1,000 mcg PO DAILY 90 days diltiazem HCl CD 240 mg See Protocol PO DAILY 90 days Eliquis (apixaban) 2.5 mg PO BID 90 days NS ferrous sulfate 325 mg PO BID [FRONT-WHEELED WALKER As directed ; Ht = 5'6 ; Wt = 164 lbs; Rx is for INDEFINITE/PERMANENT/FOREVER/LIFETIME USE] lorazepam 0.5 mg PO BID PRN omeprazole 40 mg PO DAILY@0630 raloxifene 60 mg PO DAILY 90 days [SHOWER CHAIR As directed; Rx is for INDEFINITE/PERMANENT/FOREVER/LIFETIME USE] sucralfate (Carafate) 1 g PO QIDACHS 30 days Tobacco use date assessed: 04/20/24 Fall risk assessment: No Falls in past year Last assessed Fall Risk: 04/20/24 Dental Screening Dental Screen Date: 04/20/24 Did you have a dental visit in the last 12 months?: Yes Did you have a dental problem in the last 6 months where you did not have access to dental care?: No Was dental information given to patient?: Patient has dentist HPI 4 Months f/u HPI Details Patient comes in today for her follow up visit States that she feels okay She denies any headaches or dizziness Denies any chest pains, no increased shortness of breath No nausea/vomiting, no abdominal pain No change in bowel habits noted She had her follow-up labs done last week - to discuss her results Her blood pressure log that she brought in today again shows her systolic BPs to be mostly between 110 to 138 mm Hg [facility] Medical History (Updated 04/26/24 @ 02:35 by Colt Teran MD) Degenerative joint disease of thoracic spine Gastrointestinal bleed Paroxysmal atrial fibrillation Afib Hypertrophic cardiomyopathy Atrial fibrillation with RVR Anemia Gastric ulcer History of blood transfusion Vitamin B12 deficiency Overweight (BMI 25.0-29.9) Primary osteoarthritis of hand Vitamin D deficiency Osteopenia Anemia Cardiac murmur Hiatal hernia Sevilla's esophagus Benign essential hypertension Pure hypercholesterolemia Surgical History History of esophagogastroduodenoscopy (EGD) History of appendectomy History of hysterectomy Family History Father Hypertension Mother Stroke Social History Household Members: Spouse Housing: House Do you presently have visiting nurse or other home services: No Alcohol intake: never Patient Tobacco Use Status: Never used Tobacco e-Cigarette/Vaping Use: Never Used Second Hand Smoke Exposure: No Advance Directives Date on File: 01/22/21 service: No Current occupational status: retired Cognitive needs: Yes (walker, cane) Hearing needs: No Vision needs: Yes (glasses) Questionnaire PHQ-9 Over the last 2 weeks, how often have you been bothered by any of the following problems? 1. Little interest or pleasure in doing things: not at all 2. Feeling down, depressed, or hopeless: not at all 3. Trouble falling or staying asleep, or sleeping too much: not at all 4. Feeling tired or having little energy: not at all 5. Poor appetite or overeating: not at all 6. Feeling bad about yourself - or that you are a failure or have let yourself or your family down: not at all 7. Trouble concentrating on things, such as reading the newspaper or watching television: not at all 8. Moving or speaking so slowly that other people could have noticed. Or the opposite - being so fidgety or restless that you have been moving around a lot more than usual: not at all 9. Thoughts that you would be better off or of hurting yourself in some way: not at all Total score: 0 Depression Screening Interpretation: Negative Depression Screening Done: Yes 97909 - PHQ-9 Billing: Yes Source: Developed by Drs. Emiliano Ferrari, Laura Barlow, Nico Ely and colleagues, with an educational florentino from [employer]. Thrive Questionnaire Date Thrive assessed: 04/20/24 I am a: Patient What is your living situation today?: I have a steady place to live Within the past 12 months, did the food you bought not last and you didn't have the money to get more?: Never true Within the past 12 months, did you worry whether your food would run out before you got money to buy more?: Never true Do you have trouble paying for medicines?: No Do you have trouble getting transportation to medical appointments?: No Do you have trouble paying your heating and electricity bill?: No Do you have trouble taking care of your child, family member or friend?: No Do you have trouble with day-to-day activities such as bathing, preparing meals, shopping, managing finances, etc.?: No Are you currently unemployed and looking for a job?: No Are you interested in more education?: No Please select the resources that you would like help with: None Currently or been in a relationship where the following occur: No concerns reported THRIVE Score: 0 AUDIT C Alcohol Use Questionnaire (AUDIT-C) 1. How often do you have a drink containing alcohol?: Monthly or less 2. How many drinks containing alcohol do you have on a typical day when you are drinking?: 1 or 2 3. How often do you have six or more drinks on one occasion?: Never Total Score: 1 Score Reviewed/Action Taken: Yes JULIA-7 AMB Questionnaire JULIA-7 Date JULIA - 7 assessed: 04/20/24 Feeling nervous, anxious, or on edge: 0 = Not at all Not being able to stop or control worryin = Not at all Worrying too much about different things: 0 = Not at all Trouble relaxin = Not at all Being so restless that it is hard to sit still: 0 = Not at all Becoming easily annoyed or irritable: 0 = Not at all Feeling afraid as if something awful might happen: 0 = Not at all Total JULIA-7 score (0-4 normal; 5-9 mild; 10-14 moderate; 15-21 severe): 0 Source: Developed by Drs. Emiliano Ferrari, Laura Barlow, Nico Ely and colleagues, with an educational florentino from [employer]. Review of Systems Const Denies chills, Denies fatigue, Denies fever(s) and Denies headache(s) ENT Denies dysphagia, Denies dizziness, Denies otalgia, Denies headache(s), Reports hearing loss, Denies neck pain, Denies odynophagia and Denies sore throat Card Denies chest pain, Denies palpitations and Denies dyspnea Resp Denies chest congestion, Denies cough and Denies dyspnea GI Denies abdominal pain, Denies constipation, Denies dysphagia, Denies heartburn, Denies diarrhea, Denies nausea, Denies odynophagia and Denies vomiting Denies difficulty voiding, Denies nocturia, Denies dysuria and Denies urinary urgency Musc Reports back pain (recurrent, over the middle of her back), Denies arthralgias and Denies neck pain Skin/Breast Denies rash Neuro Denies dizziness and Denies headache(s) Endo Denies fatigue and Denies palpitations Physical exam (Primary Care) Vital Signs: Last Vital Signs Pulse 71 04/20/24 14:30 BP 162/80 H 04/20/24 14:30 Pulse Ox 96 04/20/24 14:30 Oxygen Delivery Method Room Air 04/20/24 14:30 BMI result Body Mass Index 26.5 Tobacco/Smoking Status: Tobacco use Status Tobacco use date assessed 04/20/24 04/20/24 14:36 Patient Tobacco Use Status Never used Tobacco 04/20/24 14:19 e-Cigarette/Vaping Use Never Used 04/20/24 14:19 PHQ-9: PHQ-9 Score PHQ-9: Total score 0 04/20/24 14:54 Depression Screening Interpretation: Negative Thrive Assessment: Date of Thrive Assessment Date Thrive assessed 04/20/24 04/20/24 14:36 Currently or been in a relationship where the following occur: No concerns reported Const General: no acute distress and alert HENMT Ears: TM's normal bilaterally and EAC's normal Throat: Yes posterior oropharynx normal and Yes tonsils normal (no TP congestion) Neck Neck: Yes supple and No lymphadenopathy Thyroid: Thyroid normal Resp Auscultation: clear to auscultation bilaterally, no rales and no wheezes Cardio Rate: regular rate Rhythm: regular rhythm Heart sounds: Murmur heart sound present systolic soft, III/ and at the apex GI Palpation (GI): Soft to palpation and nontender Auscultation: normal bowel sounds General: Yes no CVA tenderness Back/Spine/Pelvis Back: no CVA tenderness Thoracic/Lumbar Spine: thoracic spinal tenderness Skin Rashes: no rashes Extrem General: Yes no clubbing, cyanosis or edema Results Reviewed Results Reviewed: Laboratory Tests 04/13/24 04/13/24 10:24 10:25 WBC 8.3 Hgb 13.7 Hct 42.2 Plt Count 248 Sodium 141 Potassium 3.8 Creatinine 0.84 Estimated GFR > 60 Fasting Glucose 83 Calcium 9.1 AST 58 H ALT 75 H Triglycerides 105 Cholesterol 175 LDL Cholesterol, Calc 103 H HDL Cholesterol 51 Vitamin B12 787 25-OH Vitamin D Total 45.9 TSH 3.62 Free T4 1.47 Ur Specific [place] 1.020 Urine Protein Trace Urine Glucose (UA) Negative Urine Blood Large (3+) H Urine Nitrite Negative Ur Leukocyte Esterase Large (3+) H Coding Level of Care Code Est Pt Level 4 (46692) Complex EM visit Add On G2211 Diagnoses Paroxysmal atrial fibrillation I48.0 Pure hypercholesterolemia E78.00 Benign essential hypertension I10 Hypertrophic cardiomyopathy I42.2 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 K31.811 GI bleed type/associated pathology: angiodysplasia of stomach and duodenum Anemia due to acute blood loss D62 Anemia type: other cause Other causes of anemia: acute posthemorrhagic Osteopenia, unspecified location M85.80 Osteopenia location: unspecified Vitamin D deficiency E55.9 Osteoarthritis of thoracic spine, unspecified spinal osteoarthritis complication status M47.814 Spinal osteoarthritis complication: unspecified spinal osteoarthritis Vitamin B12 deficiency E53.8 Elevated TSH R79.89 Elevated LFTs R79.89 Pyuria R82.81 Overweight (BMI 25.0-29.9) E66.3 Additional Codes PHQ-9 - 33216 - PHQ-9 Billing: Yes ([id number]) Assessment & Plan Assessment & Plan (1) Paroxysmal atrial fibrillation: Code(s): I48.0 - Paroxysmal atrial fibrillation Category: Medical Plan: Patient currently remains in sinus rhythm - she was cardioverted on Amiodarone Continue Amiodarone 200 mg QD and Dilitiazem ER 240 mg QD She was on Eliquis for thromboembolism prophylaxis previously but this was discontinued for a time a couple of years ago due to GI bleeding; she has since gone back on Eliquis 2.5 mg BID and is currently still on it Because of her GI bleeding and anemia, she has been advised to consider getting a Watchman device to obviate her need for long-term anticoagulation but she has decided against it after giving it some thought States that Dr. Funk is considering referring her to the [facility] for further evaluation as he feels that patient's hypertrophic cardiomyopathy is getting worse recently Follow up with cardiology as scheduled (2) Pure hypercholesterolemia: Code(s): E78.00 - Pure hypercholesterolemia, unspecified Category: Medical Plan: Results of her labs done last week reviewed and discussed with patient - she is advised that her total and LDL cholesterol levels are mostly unchanged from previous Her numbers are acceptable but should ideally be better considering that she is on Tx with statins Reinforced low cholesterol diet Continue Atorvastatin 10 mg QD for now Will recheck her labs and fasting lipids in 4 months for follow up (3) Benign essential hypertension: Code(s): I10 - Essential (primary) hypertension Category: Medical Plan: Reinforced low sodium diet - goal is systolic BP of at least 130 to 140 mm or less Continue Diltiazem 240 mg QD (was on Amlodipine 2.5 mg QD in the past but this was stopped when she was started on Diltiazem) (4) Hypertrophic cardiomyopathy: Code(s): I42.2 - Other hypertrophic cardiomyopathy Category: Medical Plan: Her last recorded echocardiogram done here at [facility] in June 2022 revealed a hyperdynamic left ventricular systolic function, with the visually estimated ejection fraction at >70%. The left atrium is severely dilated and evidence suggests grade II (moderate) diastolic dysfunction Patient has more recent echocardiograms done with Dr. Funk and we will try to obtain copies of these for documentation Dr. Funk is reportedly considering referring patient to the [facility] for further evaluation as he feels that patient's hypertrophic cardiomyopathy is getting worse recently (5) Gastrointestinal bleed: Code(s): K92.2 - Gastrointestinal hemorrhage, unspecified Category: Medical Qualifiers: GI bleed type/associated pathology: angiodysplasia of stomach and duodenum Qualified Code(s): K31.811 - Angiodysplasia of stomach and duodenum with bleeding Plan: Resolved with no recurrence EGD done on 06/24/22 and 06/27/22 revealed (+) ulcerated gastric mass and Bx done on 06/27/22 came out benign - was a hyperplastic mucosal polyp with background mild chronic inactive inflammation with no H pylori Continue Omeprazole 40 mg QD and Carafate 1 gm QID Follow up with GI as scheduled (6) Anemia: Code(s): D64.9 - Anemia, unspecified Category: Medical Qualifiers: Anemia type: other cause Other causes of anemia: acute posthemorrhagic Qualified Code(s): D62 - Acute posthemorrhagic anemia Plan: Resolved/corrected - was mostly due to acute GI bleed; patient required blood transfusion again during her last hospital admission H/H remain normal at 13.7/42.2 on her labs done last week Will continue to monitor her CBC regularly (7) Osteopenia: Code(s): M85.80 - Other specified disorders of bone density and structure, unspecified site Category: Medical Qualifiers: Osteopenia location: unspecified Qualified Code(s): M85.80 - Other specified disorders of bone density and structure, unspecified site Plan: Continue Raloxifene 60 mg QD Repeat BMD done on 10/07/2018 showed no significant change in BMD from 04/2014 - will continue to monitor every few years Patient is encouraged again to continue to stay active and exercise regularly as tolerated (8) Vitamin D deficiency: Code(s): E55.9 - Vitamin D deficiency, unspecified Category: Medical Plan: Continue Vitamin D3 1000 units QD (9) Degenerative joint disease of thoracic spine: Code(s): M47.814 - Spondylosis without myelopathy or radiculopathy, thoracic region Category: Medical Qualifiers: Spinal osteoarthritis complication: unspecified spinal osteoarthritis Qualified Code(s): M47.814 - Spondylosis without myelopathy or radiculopathy, thoracic region Plan: Thoracic spine x-rays done last year revealed (+) advanced multilevel degenerative changes in the thoracic spine Have advised patient on some back exercises that she can do on her own to help manage her back pain Advised that if she does not experience any relief with these, we can refer her to physical therapy for further management. (10) Vitamin B12 deficiency: Code(s): E53.8 - Deficiency of other specified B group vitamins Category: Medical Plan: Continue Vitamin B12 1000 mcg 1 tablet 2 to 3 times a week She was previously advised to lower her Vitamin B12 1000 mcg tablets intake as her level was very high - this has improved back to normal since then (11) Elevated TSH: Code(s): R79.89 - Other specified abnormal findings of blood chemistry Category: Medical Plan: Her TSH remains normal on her recent labs; her free T4 remains normal Patient is clinically euthyroid at present Will recheck her TFTs in 4 months for follow up (12) Elevated LFTs: Code(s): R79.89 - Other specified abnormal findings of blood chemistry Category: Medical Plan: Patient's LFTs have increased again from previous on her recent labs Will send patient for abdominal US for further evaluation Will continue to monitor her LFTs regularly (13) Pyuria: Code(s): R82.81 - Pyuria Category: Medical Plan: Patient also continues to present with significant pyuria on her routine urinalysis She denies any acute urinary symptoms Previous attempts at empiric Abx Tx have not resulted in any significant or permanent resolution Will send patient for renal and bladder US for further evaluation (14) Overweight (BMI 25.0-29.9): Code(s): E66.3 - Overweight Category: Medical Plan: Reinforced diet/exercise as tolerated/lose weight Plan Follow up in 4 months Orders: Orders US bladder 04/20/24 R31.9 - Hematuria, unspecified, R82.81 - Pyuria Complete Blood Count Auto Diff 4 Months D64.9 - Anemia, unspecified US renal BI 04/20/24 R31.9 - Hematuria, unspecified, R82.81 - Pyuria US abdomen complete 04/20/24 R79.89 - Other specified abnormal findings of blood chemistry Comprehensive [place]. Panel Fast 4 Months E78.00 - Pure hypercholesterolemia, unspecified Lipid Panel 4 Months E78.00 - Pure hypercholesterolemia, unspecified TSH reflex Free T4 4 Months E78.00 - Pure hypercholesterolemia, unspecified UA CC w/rflx Micro + Cult 4 Months R30.0 - Dysuria
[2024-04-20 14:30] VITALS: BP 162/80; PULSE 71; O2SAT 96; BMI 26.5
--- OUTSIDE RECORDS SUMMARY | 2024-04-20 15:10 | XMS_ITS | Patient Health Record ---
Author Organization [facility] Address [address] [place] [address] Care Team Providers Care Body Bumper Name Role Phone Colt Teran MD Primary Care Provider Emiliano Chau Unavailable [phone] ALLERGIES Allergen (clinical drug ingredient) Drug/Non Drug Allergy documented on EMR Reaction Allergy Type Onset Date Status halothane (uncoded) Unknown Allergy Active enflurane (uncoded) Unknown Allergy Active piperacillin / tazobactam zosyn (uncoded) Unknown Allergy Active negran (uncoded) Unknown Allergy Act jose general anesthesia (uncoded) Unknown Allergy Active ethrane (uncoded) Unknown Allergy Ac tive REASON FOR REFERRAL Referring Provider First Name Colt Referring Provider Last Name Jeffry Referring Provider Speciality Internal M edicine Referred Organization [facility] Referred Provider Emiliano Herrera Referred Address [address] [place] [address], [address],[place], [place],[address], Referred Provider Specialty Gastroentero logy General Notes Dionne Ward 024 04:02:09 PM EDT > called [phone] to request an [facility] blue referral for visit with Dr. Herrera on 01-20-2024 for gerd Referral Priority Routine MEDICATIONS Medication SIG (Take, Route, Frequency, Duration) Notes Start Date End Date Status Raloxifene HCl 60 MG 1 tablet Orally Onc e a day (Evista) Active Vitamin D3 1000 UNIT 1 tablet Orally Onc e a day Active Eliquis 2.5 MG TAKE 1 TABLET BY MOUTH TWICE A DAY Oral for 90 Active Atorvastatin Calcium 10 MG 1 tablet Orally Once a day Active Omeprazole 40 MG TAKE 1 CAPSULE DAILY Orally Once a day for 90 days Active Amiodarone HCl 200 MG TAKE 1 TABLET BY MOUTH TWICE A DAY FOR 90 DAYS Oral for 60 Active dilTIAZem HCl ER Coated Beads 240 MG TAKE 1 CAPSULE BY MOUTH EVERY DAY Oral for 90 Active LORazepam 0.5 MG TAKE 1/2 TABLET BY MOUTH TWICE A DAY NEEDED FOR ANXIETY Oral for 30 prn Active Sucralfate 1 GM 1 tablet on an empty stomach Orally Before each meal and at bedtime for 30 day(s) 06/30/2022 Active Sucralfate 1 GM 1 tablet on an empty stomach Orally 30-60 minutes before each meal and at bedtime for 30 day(s) 07/02/2022 Active Ferrous Sulfate 324 (65 Fe) MG 1 tablet Orally Once a day Active Vitamin B12 1000 MCG 1 tablet Orally Onc e a day twice a week Active IMMUNIZATIONS Vaccine Route Administration Date Status Comme nts Influenza Unknown 11/22/2017 Administered Influenza Unknown 11/22/2018 Administered Influenza Unknown 12/22/2020 Administered Influenza Unknown 12/22/2021 Administered Influenza Unknown 12/26/2022 Administered SOCIAL HISTORY Sex Assigned At : Social History Observation Description Sex Assigned At Unknown PROBLEMS Problem Type ICD Code Onset Dates Problem Status W/U Status Risk SNOMED Code Notes Problem 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 538585968 Problem 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) Active confirmed 096782455 Problem Acute gastric ulcer without hemorrhage or perforation (K25.3) Active confirmed 43117757 Problem Chronic or unspecified gastric ulcer with perforation (K25.5) Active confirmed Chronic gastric ulcer with perforation (12102215) Problem Polyp of stomach and duodenum (K31.7) Active confirmed Benign neoplasm of stomach (80486997) Problem Duodenitis (K29.80) Active confirmed Du odenitis (54391338) Problem Blood in stool (K92.1) Active confirmed 04639798 Problem Diverticulosis (K57.90) Active confirmed 328250699 Problem Heme + stool (R19.5) Active confirmed 29503691 Problem Hiatal hernia (K44.9) Active confirmed 69010162 Problem Gastric polyps (K31.7) Active confirmed Benign neoplasm of stomach (50840818) Problem Iron deficiency anemia due to chronic blood loss (D50.0) Active confirmed 858901275 Problem GERD with esophagitis (K21.0) Active confirmed 519938102 Problem UGI bleed (K92.2) Active confirmed 3736 2001 Problem Angiodysplasia of colon (K55.20) Active confirmed 928526617 Problem Diverticulosis large intestine w/o perforation or abscess w/bleeding (K57.31) Active confirmed Hemorrhage of colon due to diverticulosis (668191417398753) Problem 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) Active confirmed Sevilla esophag us (961882842) Problem Chronic gastritis (K29.50) Active confirmed Chronic gastrit is (6714760) Problem Anemia due to other cause, not classified (D64.89) Active confirmed 271138404 Problem Anemia due to acute blood loss (D62) Active confirmed 918530081 Problem Gastroesophageal reflux disease with esophagitis, unspecified whether hemorrhage (K21.00) Active confirmed Gastroes ophageal reflux disease with esophagitis (disorder) (137569931) VITAL SIGNS Blood pressure diastolic 00 mm Hg 01/20/2024 Height 66.50 in 01/20/2024 Blood pressure systolic 00 mm Hg 01/20/2024 Weight 165 lbs 01/20/2024 BMI 26.23 kg/m2 01/20/2024 Encounters Encounter Location Date Provider Diagnosis [facility] [address] [place] [phone] 01/20/2024 Emiliano Herrera Sevilla's esophagus without dysplasia K22.70 ; Hiatal hernia K44.9 ; Iron deficiency anemia due to chronic blood loss D50.0 ; UGI bleed K92.2 and Gastroesophageal reflux disease with esophagitis, unspecified whether hemorrhage K21.00 [facility] [address] [place] [address] 11/11/2023 Emiliano Herrera ASSESSMENTS Encounter Date Diagnosis Assessment Notes Treatment Notes Treatment Clinical Notes 01/20/2024 Sevilla's esophagus without dysplasia (ICD-10 - K22.70) Continue the same omeprazole and Sucralfate cake wringer. 01/20/2024 Hiatal hernia (ICD-1 0 - K44.9) 01/20/2024 Iron deficiency anem ia due to chronic blood loss (ICD-10 - D50.0) 01/20/2024 UGI bleed (ICD-10 - K92.2) 01/20/2024 Gastroesophageal ref lux disease with esophagitis, unspecified whether hemorrhage (ICD-10 - K21.00) PLAN OF TREATMENT Pending Test Test Name Order Date IRON + IBC (FE) 03/11/2021 IRON + IBC (FE) 01/30/2021 IRON + IBC (FE) 05/29/2021 CBC w DIFF 06/28/2022 CBC w DIFF 03/11/2021 CBC w DIFF 01/30/2021 CBC w DIFF 02/20/2021 CBC w DIFF 05/29/2021 Ferritin 05/29/2021 Ferritin 03/11/2021 Ferritin 01/30/2021 Future Test Test Name Order Date UPPER GI ENDOSCOPY 08/11/2014 COLONOSCOPY 08/11/2014 UPPER GI ENDOSCOPY 01/01/2017 COLONOSCOPY 01/01/2017 UPPER GI ENDOSCOPY 07/27/2019 UPPER GI ENDOSCOPY 02/20/2021 Next Appt Details Provider Name:Emiliano Herrera , 01/19/2025 01:00:00 PM, [address] [place] [address], [address], [place], [address], Insurance Providers Payer Name Payer Address Payer Phone Subscriber Number Group Number Insured Name Patient Relationship to Insured Coverage Start Date Coverage End Date [facility] [employer] [address] [place] [address] [id number] TORIE SWIFT Self - patient is the insured MEDICAL (GENERAL) HISTORY Medical History History ICD Code GERD with HH with long segme nt of Sevilla's esophagus diagnosed in 1994-most recent EGD was in 12/2016-no dysplasia hyperlipidemia hypertension fatty liver-neg w/u-Negative Hepatitis serologies and autoimmune studies--AST 36 and ALT 33, Iron sat 15% with an Iron of 60 in 07/[address],CVA,Lung disease,r enal disease--has had a heart murmur all of her life --she has had cardiac Echos Negative colonoscopy in 04/2002 and --2nd one was for anemia Pancreatitis in 2003 after E GD-? due to duodenal biopsies-otherwise neg. 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 anemia in fall---w/u as above with EGD and Colonoscopy in 12/2016--labs neg for celiac disease in 03/2017 and negative duodenal biopsies in 2003 Sevilla's esophagus-EGD 12/23 017 with the Sevilla's and biopsies neg for dysplasia; upper endoscopy in 2019 revealed similar findings in the Sevilla's esophagus with the associated moderate- sized hiatal hernia Hospitalization in late 2020 for melena and anemia requiring 4 units of blood. Upper endoscopy at that time revealed her known Sevilla's esophagus and hiatal hernia, but no definitive bleeding lesions were noted. A small bowel video capsule study revealed some nonspecific mucosal changes within the duodenum that may have been the source of bleeding although no active bleeding was seen at the time of the capsule study. She was discharged in early January 2021 on b.i.d. iron and omeprazole. Followup upper endoscopy in February of 2021 revealed a shallow proximal gastric ulcer along the greater curvature. This appeared grossly benign and multiple biopsies from it were also benign and negative for H. pylori. There was no evidence of any duodenal abnormalities as had been suggested on the previous small bowel video capsule study. GI bleed in October at 2021 r equiring hospitalization and one unit of blood--seen by Dr. Cantrell--upper endoscopy revealed only her known area of Sevilla's esophagus, hiatal hernia, and benign gastric polyps; colonoscopy revealed only diverticulosis, hyperplastic polyp, and a tiny nonbleeding angiodysplasia Hospitalization in June for upper GI bleeding after being started on Eliquis for atrial fibrillation. She underwent 2 upper endoscopies with the finding of a proximal ulcerated gastric lesion, biopsies of which were negative for any type of neoplasm. She was started on sucralfate in addition to her daily omeprazole at that time and the Eliquis was stopped. Hypertrophic cardiomyopathy- -followed by --she is going to the [facility] in March of 2024 for further testing including a stress test with echocardiogram and either a MRI or CT scan of the heart Surgical History Surgery Date(Month/Year) appendectomy in December of 2010 complete hysterectomy
--- OUTSIDE RECORDS SUMMARY | 2024-04-20 15:10 | XMS_ITS ---
Author Organization [facility] Address [address] [place] [address] Care Team Providers Care Transportation Driver Name Role Phone Jeffry CAROLINA, Hubbard Primary Care Provider Emiliano Chau Unavailable [phone] REASON FOR VISIT pa needed for omeprazole/faxed pa. waiting on ins MEDICATIONS Medication SIG (Take, Route, Fr equency, Duration) Notes Start Date End Date Status Omeprazole 40 MG TAKE 1 CAPSULE DAILY Orally Once a day for 90 days Active Encounters Encounter Location Date Provider Diagnosis [facility] [address] [place] [address] [address] [place] [address] 11/11/2023 Emiliano Herrera PLAN OF TREATMENT Medication Medication Name Sig Start Date Stop Date Notes Omeprazole 40 MG TAKE 1 CAPSULE DAILY Orally Once a day for 90 days Next Appt Details Provider Name:Emilinao Herrera , 01/19/2025 01:00:00 PM, [address] [place] [address], [address], [place], [address],
--- OUTSIDE RECORDS SUMMARY | 2024-04-20 15:11 | XMS_ITS ---
Author Organization [facility] Address [address] [place] [address] Care Team Providers Care Skate Boarder Name Role Phone Jeffry CAROLINA, Colt Primary Care Provider Emiliano Chau Unavailable [phone] ALLERGIES Allergen (clinical drug ingredient) Drug/Non Drug Allergy documented on EMR Reaction Allergy Type Onset Date Status halothane (uncoded) Unknown Allergy Active enflurane (uncoded) Unknown Allergy Active piperacillin / tazobactam zosyn (uncoded) Unknown Allergy Active negran (uncoded) Unknown Allergy Act jose general anesthesia (uncoded) Unknown Allergy Active ethrane (uncoded) Unknown Allergy Ac tive REASON FOR VISIT Patient presents today for anemia MEDICATIONS Medication SIG (Take, Route, Frequency, Duration) Notes Start Date End Date Status Amiodarone HCl 200 MG TAKE 1 TABLET BY MOUTH TWICE A DAY FOR 90 DAYS Oral for 60 Active Omeprazole 40 MG TAKE 1 CAPSULE BY MOUTH EVERY DAY for 90 Active Potassium Chloride ER 8 MEQ 1 tablet Orally QD Unknown LORazepam 0.5 MG TAKE 1/2 TABLET BY MOUTH TWICE A DAY NEEDED FOR ANXIETY Oral for 30 Active dilTIAZem HCl ER Coated Beads 240 MG TAKE 1 CAPSULE BY MOUTH EVERY DAY Oral for 90 Active Raloxifene HCl 60 MG 1 tablet Orally Onc e a day (Evista) Active Vitamin B12 1000 MCG 1 tablet Orally Onc e a day twice a week Active Ferrous Sulfate 324 (65 Fe) MG 1 tablet Orally Once a day Active Sucralfate 1 GM 1 tablet on an empty stomach Orally 30-60 minutes before each meal and at bedtime for 30 day(s) 07/02/2022 Active Sucralfate 1 GM 1 tablet on an empty stomach Orally Before each meal and at bedtime for 30 day(s) 06/30/2022 Active Atorvastatin Calcium 10 MG 1 tablet Orally Once a day Active Vitamin D3 1000 UNIT 1 tablet Orally Onc e a day Active PROBLEMS Problem Type ICD Code Onset Dates Problem Status W/U Status Risk SNOMED Code Notes Problem Gastroesophageal reflux disease with esophagitis, unspecified whether hemorrhage (K21.00) Active confirmed Gastroes ophageal reflux disease with esophagitis (disorder) (791993814) VITAL SIGNS BMI 25.44 kg/m2 01/17/2023 Blood pressure systolic 000 mm Hg 01/18/20 23 Blood pressure diastolic 00 mm Hg 023 Height 66.50 in 01/17/2023 Temperature 97.9 degrees Fahrenheit 01/18/20 23 Weight 160 lbs 01/17/2023 Encounters Encounter Location Date Provider Diagnosis [facility] [address] [place] [address] 01/17/2023 Emiliano Herrera Sevilla's esophagus without dysplasia K22.70 ; GERD with esophagitis K21.0 ; Acute gastric ulcer without hemorrhage or perforation K25.3 and Anemia due to acute blood loss D62 ASSESSMENTS Encounter Date Diagnosis Assessment Notes Treatment Notes Treatment Clinical Notes 01/17/2023 Sevilla's esophagus without dysplasia (ICD-10 - K22.70) Continue the Omeprazole and Sucralfate jail 01/17/2023 GERD with esophagitis (ICD-10 - K21.0) 01/17/2023 Acute gastric ulcer without hemorrhage or perforation (ICD-10 - K25.3) 01/17/2023 Anemia due to acute blood loss (ICD-10 - D62) PLAN OF TREATMENT Treatment Notes Assessment Notes Sevilla's esophagus without dysplasia Co ntinue the Omeprazole and Sucralfate protective officer Next Appt Details Follow Up: 1 Year, Reason: Provider Name:Emiliano Herrera , 01/19/2025 01:00:00 PM, [address], [address], [place], [address], Progress Notes * Examination Category Sub-Category Detail Notes General Examination GENERAL APPEARANCE: pleasant , well nourished, well developed, in no acute distress EYES: sclera non-icteric NECK/THYROID: no cervical lymphade nopathy, neck supple HEART: S1, S2 normal LUNGS: clear to auscultatio n bilaterally ABDOMEN: normal bowel sounds, no guarding or rigidity, no hepatosplenomegaly, no masses palpable, soft, nontender, nondistended. NEUROLOGIC: alert and oriented SKIN: nonjaundiced, no spi debbie angiomata. EXTREMITIES: no edema ORAL CAVITY: mucosa moist
--- OUTSIDE RECORDS SUMMARY | 2024-04-20 15:11 | XMS_ITS ---
Author Organization [facility] Address [address] [place] [address] Care Team Providers Care Waxer Name Role Phone Jeffry CAROLINA, Colt Primary Care Provider Emiliano Chau Unavailable [phone] ALLERGIES Allergen (clinical drug ingredient) Drug/Non Drug Allergy documented on EMR Reaction Allergy Type Onset Date Status halothane (uncoded) Unknown Allergy Active enflurane (uncoded) Unknown Allergy Active piperacillin / tazobactam zosyn (uncoded) Unknown Allergy Active negran (uncoded) Unknown Allergy Act jose general anesthesia (uncoded) Unknown Allergy Active ethrane (uncoded) Unknown Allergy Ac tive REASON FOR VISIT Patient presents today for gerd MEDICATIONS Medication SIG (Take, Route, Frequency, Duration) Notes Start Date End Date Status Vitamin D3 1000 UNIT 1 tablet Orally [...] at bedtime for 30 day(s) 07/02/2022 Active Raloxifene HCl 60 MG 1 tablet Orally Onc e a day (Evista) Active Ferrous Sulfate 324 (65 Fe) MG 1 tablet Orally Once a day Active Vitamin B12 1000 MCG 1 tablet Orally Onc e a day twice a week Active VITAL SIGNS BMI 26.23 kg/m2 01/20/2024 Blood pressure systolic 00 mm Hg 01/20/20 24 Blood pressure diastolic 00 mm Hg 024 Height 66.50 in 01/20/2024 Weight 165 lbs 01/20/2024 Encounters Encounter Location Date Provider Diagnosis [facility] [address] [place] [address] 01/20/2024 Emiliano Herrera Sevilla's esophagus without dysplasia K22.70 ; Hiatal hernia K44.9 ; Iron deficiency anemia due to chronic blood loss D50.0 ; UGI bleed K92.2 and Gastroesophageal reflux disease with esophagitis, unspecified whether hemorrhage K21.00 ASSESSMENTS Encounter Date Diagnosis Assessment Notes Treatment Notes Treatment Clinical Notes 01/20/2024 Sevilla's esophagus without dysplasia (ICD-10 - K22.70) Continue the same omeprazole and Sucralfate in house cra. 01/20/2024 Hiatal hernia (ICD-1 0 - K44.9) 01/20/2024 Iron deficiency anem ia due to chronic blood loss (ICD-10 - D50.0) 01/20/2024 UGI bleed (ICD-10 - K92.2) 01/20/2024 Gastroesophageal ref lux disease with esophagitis, unspecified whether hemorrhage (ICD-10 - K21.00) PLAN OF TREATMENT Treatment Notes Assessment Notes Sevilla's esophagus without dysplasia Co ntinue the same omeprazole and Sucralfate in house cra. Next Appt Details Follow Up: 1 Year, Reason: Provider Name:Emiliano Herrera , 01/19/2025 01:00:00 PM, [address], [address], [place], [address], Progress Notes * Examination Category Sub-Category Detail [...]
== END 2024-04-20 15:12 | disposition home or self-care (01) ==
PROVIDERS: PCP Internal Medicine; Visit Provider Internal Medicine
DX: I48.0 Paroxysmal atrial fibrillation (principal); E78.00 Pure hypercholesterolemia, unspecified; I10 Essential (primary) hypertension; I42.2 Other hypertrophic cardiomyopathy; K31.811 Angiodysplasia of stomach and duodenum with bleeding; D62 Acute posthemorrhagic anemia; M85.80 Other specified disorders of bone density and structure, unspecified site; E55.9 Vitamin D deficiency, unspecified; M47.814 Spondylosis without myelopathy or radiculopathy, thoracic region; E53.8 Deficiency of other specified B group vitamins; R79.89 Other specified abnormal findings of blood chemistry; R82.81 Pyuria; E66.3 Overweight

== ENCOUNTER → 2024-04-20 14:12 | Outpatient (BNVA) | payer BC, SELFPAY | PROVIDERS: PCP Internal Medicine; Visit Provider Internal Medicine | DX: I48.0 Paroxysmal atrial fibrillation (principal); E78.00 Pure hypercholesterolemia, unspecified; I10 Essential (primary) hypertension; I42.2 Other hypertrophic cardiomyopathy; K31.811 Angiodysplasia of stomach and duodenum with bleeding; D62 Acute posthemorrhagic anemia; M85.80 Other specified disorders of bone density and structure, unspecified site; E55.9 Vitamin D deficiency, unspecified; M47.814 Spondylosis without myelopathy or radiculopathy, thoracic region; E53.8 Deficiency of other specified B group vitamins; R79.89 Other specified abnormal findings of blood chemistry; R82.81 Pyuria; E66.3 Overweight; Z79.899 Other long term (current) drug therapy | CPT/HCPCS: 96127 ==

== ENCOUNTER 2024-04-28 08:01 | Outpatient (AMB) | payer BC, SELFPAY ==
[2024-04-28 08:06] VITALS: BP 160/82; PULSE 60; TEMP 36.9; O2SAT 98; BMI 26.0
--- NOTE | 2024-04-28 08:06 | A.OFFPC_ITS ---
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: No Accompanied by: Spouse Allergies enflurane [ENFLURANE] Allergy (Severe, Verified 04/28/24 22:46) Per Patient Liver toxicity piperacillin [Zosyn] Allergy (Severe, Verified 04/28/24 22:46) Rash tazobactam [Zosyn] Allergy (Severe, Verified 04/28/24 22:46) Rash Medication List - Last Reconciled 04/28/24 by SUKHJINDER Mckeon amiodarone 200 mg PO DAILY atorvastatin 10 mg PO DAILY cholecalciferol (vitamin D3) 25 mcg PO DAILY 90 days cyanocobalamin (vitamin B-12) (Vitamin B-12) 1,000 mcg PO DAILY 90 days diltiazem HCl CD 240 mg See Protocol PO DAILY 90 days Eliquis (apixaban) 2.5 mg PO BID 90 days NS ferrous sulfate 325 mg PO BID [FRONT-WHEELED WALKER As directed ; Ht = 5'6 ; Wt = 164 lbs; Rx is for INDEFINITE/PERMANENT/FOREVER/LIFETIME USE] lorazepam 0.5 mg PO BID PRN omeprazole 40 mg PO DAILY@0630 raloxifene 60 mg PO DAILY 90 days [SHOWER CHAIR As directed; Rx is for INDEFINITE/PERMANENT/FOREVER/LIFETIME USE] sucralfate (Carafate) 1 g PO QIDACHS 30 days Tobacco use date assessed: 04/28/24 Fall risk assessment: No Falls in past year Last assessed Fall Risk: 04/28/24 Dental Screening Dental Screen Date: 04/20/24 HPI feet and ankles are flowing up HPI Details The patient is a 79-year-old female with significant past medical history of paroxysmal atrial fibrillation, hypertrophic cardiomyopathy, anemia, frequent falls, vitamin B12 deficiency, benign essential hypertension The patient is presenting today with concern of swelling in her right lower leg/ankle Patient reports that on Friday in the afternoon she took her shoes off in her right foot/ankle was swollen Reports that this happened to her in the past but not as bad Reports that it got better after going to bed an elevating her leg Patient reports that she has an ultrasound of her kidney and bladder scheduled for 05/20 and she was wondering if this has anything to do with the swelling in her legs The patient denies pain to the leg, she denies shortness of breath, denies chest pain, denies heart palpitation or dizziness On examination:+ pitting edema right lower leg/ankle, no pain to palpation, no redness, +ROM, lung sounds clear to auscultation Discussed with patient that given her AFib and other cardiac issues, her ability to profuse her body is decreased which could lead to venous stasis Explained to patient that given that the edema resolves when she goes to bed and elevate her legs and reoccurs when her legs are in a dependent position, she should consider start wearing compression stockings which will increase her circulation Patient reports that she actually does have compress stockings at home but she did not think about using them The patient wanted to know if she should cut down on her frequent walks-if these might be affecting her legs Encouraged the patient that she should stay active as possible/tolerated because this was actually increase her circulation [facility] Medical History Degenerative joint disease of thoracic spine Gastrointestinal bleed Paroxysmal atrial fibrillation Afib Hypertrophic cardiomyopathy Atrial fibrillation with RVR Anemia Gastric ulcer History of blood transfusion Vitamin B12 deficiency Overweight (BMI 25.0-29.9) Primary osteoarthritis of hand Vitamin D deficiency Osteopenia Anemia Cardiac murmur Hiatal hernia Sevilla's esophagus Benign essential hypertension Pure hypercholesterolemia Surgical History History of esophagogastroduodenoscopy (EGD) History of appendectomy History of hysterectomy Family History Father Hypertension Mother Stroke Social History Household Members: Spouse Housing: House Do you presently have visiting nurse or other home services: No Alcohol intake: never Patient Tobacco Use Status: Never used Tobacco e-Cigarette/Vaping Use: Never Used Second Hand Smoke Exposure: No Advance Directives Date on File: 01/22/21 service: No Current occupational status: retired Cognitive needs: Yes (walker, cane) Hearing needs: No Vision needs: Yes (glasses) Questionnaire PHQ-9 Over the last 2 weeks, how often have you been bothered by any of the following problems? 1. Little interest or pleasure in doing things: not at all 2. Feeling down, depressed, or hopeless: not at all 3. Trouble falling or staying asleep, or sleeping too much: not at all 4. Feeling tired or having little energy: not at all 5. Poor appetite or overeating: not at all 6. Feeling bad about yourself - or that you are a failure or have let yourself or your family down: not at all 7. Trouble concentrating on things, such as reading the newspaper or watching television: not at all 8. Moving or speaking so slowly that other people could have noticed. Or the opposite - being so fidgety or restless that you have been moving around a lot more than usual: not at all 9. Thoughts that you would be better off or of hurting yourself in some way: not at all Total score: 0 Depression Screening Interpretation: Negative Depression Screening Done: Yes 19227 - PHQ-9 Billing: Yes Source: Developed by Drs. Emiliano Ferrari, Laura Barlow, Nico Ely and colleagues, with an educational florentino from [employer] Thrive Questionnaire Date Thrive assessed: 04/28/24 I am a: Patient What is your living situation today?: I have a steady place to live Within the past 12 months, did the food you bought not last and you didn't have the money to get more?: Never true Within the past 12 months, did you worry whether your food would run out before you got money to buy more?: Never true Do you have trouble paying for medicines?: No Do you have trouble getting transportation to medical appointments?: No Do you have trouble paying your heating and electricity bill?: No Do you have trouble taking care of your child, family member or friend?: No Do you have trouble with day-to-day activities such as bathing, preparing meals, shopping, managing finances, etc.?: No Are you currently unemployed and looking for a job?: No Are you interested in more education?: No Please select the resources that you would like help with: None Currently or been in a relationship where the following occur: No concerns reported THRIVE Score: 0 AUDIT C Alcohol Use Questionnaire (AUDIT-C) 1. How often do you have a drink containing alcohol?: Monthly or less 2. How many drinks containing alcohol do you have on a typical day when you are drinking?: 1 or 2 3. How often do you have six or more drinks on one occasion?: Never Total Score: 1 Score Reviewed/Action Taken: Yes JULIA-7 AMB Questionnaire JULIA-7 Date JULIA - 7 assessed: 04/28/24 Feeling nervous, anxious, or on edge: 0 = Not at all Not being able to stop or control worryin = Not at all Worrying too much about different things: 0 = Not at all Trouble relaxin = Not at all Being so restless that it is hard to sit still: 0 = Not at all Becoming easily annoyed or irritable: 0 = Not at all Feeling afraid as if something awful might happen: 0 = Not at all Total JULIA-7 score (0-4 normal; 5-9 mild; 10-14 moderate; 15-21 severe): 0 Source: Developed by Drs. Emiliano Ferrari, Laura Barlow, Nico Ely and colleagues, with an educational florentino from [employer] JULIA-7 Assessment Billing JULIA-7 Assessment Tool: JULIA-7 Assessment 97758 Review of Systems Const Details: Denies chills, Denies fatigue, Denies fever(s), Denies headache(s) and Denies weakness HEENT Denies change in vision, Denies dizziness, Denies headache(s), Denies hearing loss, Denies nasal congestion, Denies sinus pain, Denies sinus pressure and Denies sore throat Card Denies chest pain, Denies lightheadedness, Denies dyspnea and Denies other (palpitations) Resp Denies cough, Denies dyspnea and Denies wheezing GI Denies abdominal pain, Denies melena, Denies hematochezia, Denies change in bowel habits, Denies dyspepsia and Denies nausea Denies hematuria and Denies dysuria Musc Denies abnormal gait, Denies myalgias, Denies arthralgias, Denies numbness and Denies tingling Skin/Breast Denies rash, Denies unusual bruising and Denies wounds Other: Recurrent right leg edema Neuro Denies abnormal gait, Denies dizziness, Denies headache(s), Denies memory loss, Denies numbness, Denies Sensory deficit (Neuro), Denies tingling and Denies weakness Psych Denies anxiety, Denies depression and Denies memory loss Endo Denies cold intolerance, Denies fatigue, Denies heat intolerance, Denies polydipsia and Denies polyuria Basil/Lymph Denies easy bleeding and Denies easy bruising Aller/Immun Denies wheezing Physical exam (Primary Care) Vital Signs: Last Vital Signs Temp 98.5 F 04/28/24 08:06 Pulse 60 04/28/24 08:06 BP 160/82 H 04/28/24 08:06 Pulse Ox 98 04/28/24 08:06 Oxygen Delivery Method Room Air 04/28/24 08:06 BMI result Body Mass Index 26.0 Tobacco/Smoking Status: Tobacco use Status Tobacco use date assessed 04/28/24 04/28/24 08:14 Patient Tobacco Use Status Never used Tobacco 04/28/24 08:11 e-Cigarette/Vaping Use Never Used 04/28/24 08:11 PHQ-9: PHQ-9 Score PHQ-9: Total score 0 04/29/24 10:39 Depression Screening Interpretation: Negative Thrive Assessment: Date of Thrive Assessment Date Thrive assessed 04/28/24 04/28/24 08:11 Currently or been in a relationship where the following occur: No concerns reported Const Other: General: no acute distress, well developed, alert and awake Nutritional Appearance: well nourished Orientation/consciousness: patient oriented x3 HENMT Head: Yes normocephalic and Yes atraumatic Ears: hearing grossly normal bilaterally and TM's normal bilaterally General nose exam: Normal external nose present and Normal nares present Mouth: Normal oral and palatal mucosa present and moist mucous membranes Eyes Pupils: Equal, round and reactive pupils present and Pupil accommodation reflex normal EOM: EOMs intact bilaterally Neck Neck: Yes normal visual inspection, Yes no lymphadenopathy and Yes trachea midline Thyroid: Thyroid normal Carotids: no bruits Lymphatic: no lymphadenopathy noted Chest Chest palpation & inspection: normal inspection of the chest Resp Effort & Inspection: normal respiratory effort Auscultation: clear to auscultation bilaterally Cardio Rate: regular rate Rhythm: regular rhythm Heart sounds: S1 normal heart sound present, S2 normal heart sound present, no gallops, systolic murmur present and no rubs GI Palpation (GI): Abdomen is soft and nontender to palpation Auscultation: normal bowel sounds General: Yes no CVA tenderness Back/Spine/Pelvis Back: no CVA tenderness Cervical Spine: cervical ROM normal and No Cervical spine tenderness Thoracic/Lumbar Spine: Thoracic spinal tenderness Skin General: warm and dry. Normal skin color +1 pitting edema to right lower leg/ankle/foot Lesions: no lesions Nails: normal Extrem General: Yes normal to inspection, No edema and No calf tenderness Psych Appearance: grossly normal Affect: normal affect Attitude: cooperative Thought process: Normal thought process present Coding Level of Care Code Est Pt Level 4 (88988) Complex EM visit Add On G2211 Diagnoses Benign essential hypertension I10 Paroxysmal atrial fibrillation I48.0 Hypertrophic cardiomyopathy I42.2 Anemia due to acute blood loss D62 Anemia type: other cause Other causes of anemia: acute posthemorrhagic Osteoarthritis of thoracic spine, unspecified spinal osteoarthritis complication status M47.814 Spinal osteoarthritis complication: unspecified spinal osteoarthritis Swelling of right lower extremity M79.89 Additional Codes JULIA-7 Assessment Billing - JULIA-7 Assessment Tool: JULIA-7 Assessment 03802 ([id number]) PHQ-9 - 43086 - PHQ-9 Billing: Yes ([id number]) Time Spent (min) 32 Assessment & Plan Assessment & Plan (1) Benign essential hypertension: Code(s): I10 - Essential (primary) hypertension Category: Medical Plan: Blood pressure 160/82 in office-with pressure continue to be over goal Given the patient history of frequent falls and the patient reports that her blood pressure is better home. Reports that her blood pressure increases when she comes to the the doctor's office Reinforced the low-salt diet Continue diltiazem 240 mg daily Follow up with Cardiology as scheduled (2) Paroxysmal atrial fibrillation: Code(s): I48.0 - Paroxysmal atrial fibrillation Category: Medical Plan: Patient currently remains in sinus rhythm - she was cardioverted on Amiodarone Continue Amiodarone 200 mg QD and Dilitiazem ER 240 mg QD She was on Eliquis for thromboembolism prophylaxis previously but this was disc ontinued for a time a couple of years ago due to GI bleeding; she has since gone back on Eliquis 2.5 mg BID and is currently still on it Because of her GI bleeding and anemia, she has been advised to consider getting a Watchman device to obviate her need for long-term anticoagulation but she has decided against it after giving it some thought States that Dr. Funk is considering referring her to the [facility] for further evaluation as he feels that patient's hypertrophic cardiomyopathy is getting worse recently Follow up with cardiology as scheduled (3) Hypertrophic cardiomyopathy: Code(s): I42.2 - Other hypertrophic cardiomyopathy Category: Medical Plan: Her [place] recorded [place] [facility] revealed a hyperdynamic left ventricular systolic function, with the visually estimated ejection fraction at >70%. The left atrium is severely dilated and evidence suggests grade II (moderate) diastolic dysfunction Patient has more recent echocardiograms done with Dr. Funk and we will try to obtain copies of these for documentation Dr. Funk is reportedly considering referring patient to the [facility] for further evaluation as he feels that patient's hypertrophic cardiomyopathy is getting worse recently (4) Anemia: Code(s): D64.9 - Anemia, unspecified Category: Medical Qualifiers: Anemia type: other cause Other causes of anemia: acute posthemorrhagic Qualified Code(s): D62 - Acute posthemorrhagic anemia Plan: Resolved/corrected - was mostly due to acute GI bleed; patient required blood transfusion again during her last hospital admission H/H remain normal at 13.7/42.2 on her labs done last week Will continue to monitor her CBC regularly (5) Degenerative joint disease of thoracic spine: Code(s): M47.814 - Spondylosis without myelopathy or radiculopathy, thoracic region Category: Medical Qualifiers: Spinal osteoarthritis complication: unspecified spinal osteoarthritis Qualified Code(s): M47.814 - Spondylosis without myelopathy or radiculopathy, thoracic region Plan: Thoracic spine x-rays done last year revealed (+) advanced multilevel degenerative changes in the thoracic spine Have advised patient on some back exercises that she can do on her own to help manage her back pain Advised that if she does not experience any relief with these, we can refer her to physical therapy for further management. (6) Swelling of right lower extremity: Code(s): M79.89 - Other specified soft tissue disorders Category: Medical Plan: Right lower leg/ankle edema: mostly like depending edema due to poor circulation. Swelling resolves with leg elevation, denies sob, lungs clear. Discussed with patient about elevate in her legs when she can and to wear compression stockings during the daytime Plan Follow up with PCP as scheduled in July 2024
== END 2024-04-28 08:48 | disposition home or self-care (01) ==
PROVIDERS: PCP Internal Medicine
DX: I10 Essential (primary) hypertension (principal); I48.0 Paroxysmal atrial fibrillation; I42.2 Other hypertrophic cardiomyopathy; D62 Acute posthemorrhagic anemia; M47.814 Spondylosis without myelopathy or radiculopathy, thoracic region; M79.89 Other specified soft tissue disorders

== ENCOUNTER → 2024-04-28 08:01 | Outpatient (BNVA) | payer BC, SELFPAY | PROVIDERS: PCP Internal Medicine; Visit Provider Internal Medicine | DX: I10 Essential (primary) hypertension (principal); I48.0 Paroxysmal atrial fibrillation; I42.2 Other hypertrophic cardiomyopathy; D62 Acute posthemorrhagic anemia; M47.814 Spondylosis without myelopathy or radiculopathy, thoracic region; M79.89 Other specified soft tissue disorders; Z79.899 Other long term (current) drug therapy | CPT/HCPCS: 96127 ==

== ENCOUNTER 2024-05-20 10:19 | Outpatient (REF) | payer BC, SELFPAY ==
--- NOTE | ~2024-05-20 | US_ITS ---
CLINICAL HISTORY: R79.89 - Other specified abnormal findings of blood chemistry US ABDOMEN COMPLETE Comparison: None Findings: The pancreas is obscured by bowel gas precluding evaluation. The visualized abdominal aorta is normal caliber. The liver appears echogenic. Right hepatic lobe measures 14.3 cm. There is no intrahepatic bile duct dilatation. Common bile duct measures 3.3 mm. The gallbladder is normal. There is no sonographic Baker sign. The main portal vein is antegrade. Right kidney measures 10.9 cm in length. There is no hydronephrosis or large shadowing calculus. There is a mixed echotexture cortical lesion in the midpole that measures 2.1 x 2.0 x 2.0 cm. Left kidney measures 10 cm in length. There is no hydronephrosis, large shadowing calculus or cortical mass lesion. The spleen is normal. No ascites. IMPRESSION: 1. No hydronephrosis or nephrolithiasis. 2. Indeterminate mass in the right kidney measures 2 cm. Further characterization with dedicated renal CT or MRI is suggested. 3. Mild hepatic steatosis. This document has been electronically signed by: Ana Schaefer DO on 05/20/2024 16:57:49
--- NOTE | ~2024-05-20 | US_ITS ---
CLINICAL HISTORY: R82.81 - Pyuria US URINARY BLADDER Comparison: None Findings: The urinary bladder is unremarkable. Prevoid volume: 249 mL. Postvoid volume: 19 mL Ureteral jets are visualized bilaterally. IMPRESSION: Normal urinary bladder. This document has been electronically signed by: Ana Schaefer DO on 05/20/2024 16:40:11
--- OUTSIDE RECORDS SUMMARY | 2024-05-20 11:59 | XMS_ITS ---
Author Organization [facility] Address [address] [place] [address] Care Team Providers Care Continuing Education Director Name Role Phone Jeffry CAROLINA, [place] Primary Care Provider Emiliano Chau Unavailable [phone] REASON FOR VISIT pa needed for omeprazole/faxed pa. waiting on ins MEDICATIONS Medication SIG (Take, Route, Fr equency, Duration) Notes Start Date End Date Status Omeprazole 40 MG TAKE 1 CAPSULE DAILY Orally Once a day for 90 days Active Encounters Encounter Location Date Provider Diagnosis [facility] [address] [place] [address] [address] [place] [address] 11/11/2023 Emiliano Herrera PLAN OF TREATMENT Medication Medication Name Sig Start Date Stop Date Notes Omeprazole 40 MG TAKE 1 CAPSULE DAILY Orally Once a day for 90 days Next Appt Details Provider Name:Emiliano Herrera , 01/19/2025 01:00:00 PM, [address] [place] [address], [address], [place], [address],
--- OUTSIDE RECORDS SUMMARY | 2024-05-20 11:59 | XMS_ITS ---
Author Organization [facility] Address [address] [place] [id number] Care Team Providers Care Military Analyst Name Role Phone Jeffry CAROLINA, [place] Primary Care Provider Emiliano Chau Unavailable [phone] ALLERGIES Allergen (clinical drug ingredient) Drug/Non Drug Allergy documented on EMR Reaction Allergy Type Onset Date Status ethrane (uncoded) Unknown Allergy Ac tive halothane (uncoded) Unknown Allergy Active enflurane (uncoded) Unknown Allergy Active piperacillin / tazobactam zosyn (uncoded) Unknown Allergy Active negran (uncoded) Unknown Allergy Act jose general anesthesia (uncoded) Unknown Allergy Active REASON FOR VISIT Patient presents today for [...] Gastroes ophageal reflux disease with esophagitis (disorder) ([id number]) VITAL SIGNS Temperature 97.9 degrees Fahrenheit 01/18/20 23 Blood pressure systolic 000 mm Hg 01/18/20 23 Blood pressure diastolic 00 mm Hg 023 Height 66.50 in 01/17/2023 Weight 160 lbs 01/17/2023 BMI 25.44 kg/m2 01/17/2023 Encounters Encounter Location Date Provider Diagnosis [facility] [address] [place] [address] 01/17/2023 Emiliano Herrera Sevilla's esophagus without dysplasia K22.70 ; GERD with esophagitis K21.0 ; Acute gastric ulcer without hemorrhage or perforation K25.3 and Anemia due to acute blood loss D62 ASSESSMENTS Encounter Date Diagnosis Assessment Notes Treatment Notes Treatment Clinical Notes 01/17/2023 Sevilla's esophagus without dysplasia (ICD-10 - K22.70) Continue the Omeprazole and Sucralfate mcc 01/17/2023 GERD with esophagitis (ICD-10 - K21.0) 01/17/2023 Acute gastric ulcer without hemorrhage or perforation (ICD-10 - K25.3) 01/17/2023 Anemia due to acute blood loss (ICD-10 - D62) PLAN OF TREATMENT Treatment Notes Assessment Notes Sevilla's esophagus without dysplasia Co ntinue the Omeprazole and Sucralfate terminal manager Next Appt Details Follow Up: 1 Year, Reason: Provider Name:Emiliano Herrera , 01/19/2025 01:00:00 PM, [address], [address], [place], [address], Progress Notes * Examination Category Sub-Category Detail [...]
--- OUTSIDE RECORDS SUMMARY | 2024-05-20 11:59 | XMS_ITS ---
Author Organization [facility] Address [address] [place] [address] Care Team Providers Care Setter Molding And Coremaking Machines Name Role Phone Jeffry CAROLINA, [place] Primary Care Provider Emiliano Chau [phone] ALLERGIES Allergen (clinical drug ingredient) Drug/Non Drug [...] day twice a week Active VITAL SIGNS Blood pressure systolic 00 mm Hg 01/20/20 24 Blood pressure diastolic 00 mm Hg 024 Height 66.50 in 01/20/2024 Weight 165 lbs 01/20/2024 BMI 26.23 kg/m2 01/20/2024 Encounters Encounter Location Date Provider Diagnosis [facility] [address] [place] [address] 01/20/2024 Emiliano Herrera Sevilla's esophagus without dysplasia K22.70 ; Hiatal hernia K44.9 ; Iron deficiency anemia due to chronic blood loss D50.0 ; UGI bleed K92.2 and Gastroesophageal reflux disease with esophagitis, unspecified whether hemorrhage K21.00 ASSESSMENTS Encounter Date Diagnosis Assessment Notes Treatment Notes Treatment Clinical Notes 01/20/2024 Sevilla's esophagus without dysplasia (ICD-10 - K22.70) Continue the same omeprazole and 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 01/20/2024 Hiatal hernia (ICD-1 0 - K44.9) 01/20/2024 Iron deficiency anem ia due to chronic blood loss (ICD-10 - D50.0) 01/20/2024 UGI bleed (ICD-10 - K92.2) 01/20/2024 Gastroesophageal ref lux disease with esophagitis, unspecified whether hemorrhage (ICD-10 - K21.00) PLAN OF TREATMENT Treatment Notes Assessment Notes Sevilla's esophagus without dysplasia Co ntinue the same omeprazole and Sucralfate nursing home. Next Appt Details Follow Up: 1 Year, Reason: Provider Name:Emiliano Herrera , 01/19/2025 01:00:00 PM, [address], [address], [place], [address], Progress Notes * Examination Category Sub-Category Detail [...]
== END 2024-05-20 10:20 | disposition home or self-care (01) ==
LOC: HO.US 10:19
PROVIDERS: PCP Internal Medicine; Visit Provider Internal Medicine
DX: R79.89 Other specified abnormal findings of blood chemistry (principal); R31.9 Hematuria, unspecified; R82.81 Pyuria
CPT/HCPCS: 76700; 76857

== ENCOUNTER → 2024-05-20 10:21 | Outpatient (BNV) | payer BC, SELFPAY | PROVIDERS: PCP Internal Medicine; Visit Provider Radiology Diagnostic Radiology | DX: R74.01 Elevation of levels of liver transaminase levels (principal); R82.81 Pyuria | CPT/HCPCS: 76700; 76857 ==

== ENCOUNTER 2024-07-09 10:19 | Outpatient (REF) | payer BC, SELFPAY ==
[2024-07-09 11:11] LABS: Appearance Urine Clear; Color Urine Dark Yellow; Glucose Urine UA Negative (Negative); Leukocyte Esterase Urine Moderate (2+) (Negative); Nitrite Urine Negative (Negative); PH 6.5 (5.0-9.0); UMIC TRIGGER UACC YES; Urine Blood Negative (Negative); Urine Ketones Trace mg/dL (Negative); Urine Protein Trace mg/dL (Neg-Trace)
[2024-07-09 11:15] LABS: Bacteria Urine None Seen (None Seen); RBC Urine 0-2 /HPF (0-2); Squamous Epithelial Cell Urine 0-2 /HPF (0-2); UACC Culture Trigger YES; WBC Urine >50 /HPF (0-5)
--- OUTSIDE RECORDS SUMMARY | 2024-07-09 11:19 | XMS_ITS | Patient Health Record ---
Author Organization [facility] Address [address] [place] [address] Care Team Providers Care Fashion Stylist Name Role Phone Colt Teran MD Primary Care Provider Emiliano Chau Unavailable [phone] Allergies Allergen (clinical drug ingredient) Drug/Non Drug Allergy documented on EMR Reaction Allergy Type Onset Date Status halothane (uncoded) Unknown Allergy Active enflurane (uncoded) Unknown Allergy Active piperacillin / tazobactam zosyn (uncoded) Unknown Allergy Active negran (uncoded) Unknown Allergy Act jose general anesthesia (uncoded) Unknown Allergy Active ethrane (uncoded) Unknown Allergy Ac tive Reason For Referral Referring Provider First Name Colt Referring Provider Last Name Jeffry Referring Provider Speciality Internal M edicine Referred Organization [facility] Referred Provider Emiliano Herrera Referred Address [address] [place] [address], [address],[place], [place],[address], Referred Provider Specialty Gastroentero logy General Notes Dionne Ward 024 04:02:09 PM EDT > called [phone] to request an [facility] referral for visit with Dr. Herrera on 01-20-2024 for gerd Referral Priority Routine Medications Medication SIG (Take, Route, Frequency, Duration) Notes [...] e a day twice a week Active Immunizations Vaccine Route Administration Date Status Comme nts Influenza Unknown 11/22/2017 Administered Influenza Unknown 11/22/2018 Administered Influenza Unknown 12/22/2020 Administered Influenza Unknown 12/22/2021 Administered Influenza Unknown 12/26/2022 Administered Problems Problem Type SNOMED Code ICD Code Onset Dates Problem Status W/U Status Risk Notes Problem 595744420 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 Problem 680731707 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) Active confirmed Problem 01414717 Acute gastric ulcer without hemorrhage or perforation (K25.3) Active confirmed Problem Chronic gastric ulcer with perforation (99414826) Chronic or unspecified gastric ulcer with perforation (K25.5) Active confirmed Problem Benign neoplasm of stomach (46361237) Polyp of stomach and duodenum (K31.7) Active confirmed Problem Duodenitis (89092482) Duodenitis (K29.80) Active confirmed Problem 12813463 Blood in stool (K92.1) Active confirmed Problem 397885116 Diverticulosis (K57.90) Active confirmed Problem 14276030 Heme + stool (R19.5) Active confirmed Problem 42005898 Hiatal hernia (K44.9) Active confirmed Problem Benign neoplasm of stomach (29721421) Gastric polyps (K31.7) Active confirmed Problem 150721713 Iron deficiency anemia due to chronic blood loss (D50.0) Active confirmed Problem 184686568 GERD with esophagitis (K21.0) Active confirmed Problem 16282333 UGI bleed (K92.2) Active confirmed Problem 041311515 Angiodysplasia o f colon (K55.20) Active confirmed Problem Hemorrhage of colon due to diverticulosis (289456970960670) Diverticulosis large intestine w/o perforation or abscess w/bleeding (K57.31) Active confirmed Problem Sevilla esophagus (514779528) 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) Active confirmed Problem Chronic gastritis (1959646) Chronic gastritis (K29.50) Active confirmed Problem 801606198 Anemia due to other cause, not classified (D64.89) Active confirmed Problem 079678793 Anemia due to acute blood loss (D62) Active confirmed Problem Gastroesophageal reflux disease with esophagitis (disorder) (001253641) Gastroesophageal reflux disease with esophagitis, unspecified whether hemorrhage (K21.00) Active confirmed Vital Signs Blood pressure diastolic 00 mm Hg 01/20/2024 Height 66.50 in 01/20/2024 Blood pressure systolic 00 mm Hg 01/20/2024 Weight 165 lbs 01/20/2024 BMI 26.23 kg/m2 01/20/2024 Encounters Encounter Location Date Provider Diagnosis [facility] [address] [place] [phone] 01/20/2024 Emiliano Herrera Sevilla's esophagus without dysplasia K22.70 ; Hiatal hernia K44.9 ; Iron deficiency anemia due to chronic blood loss D50.0 ; UGI bleed K92.2 and Gastroesophageal reflux disease with esophagitis, unspecified whether hemorrhage K21.00 [facility] [address] [place] [phone] 11/11/2023 Emiliano Herrera Assessments Encounter Date Diagnosis (ICD Code) Assessment Notes Treatment Notes Treatment Clinical Notes Section Notes 01/20/2024 Sevilla's esophagus without dysplasia (ICD-10 - K22.70) Continue the same omeprazole and Sucralfate senior living. Overall, Sulema appears quite well. She has remained quite stable on her current regimen of the omeprazole, sucralfate, and iron in regard to the previous history of anemia in association with upper GI bleeding. As such, I did advise her to continue those medications long-term. At this point I don't think she needs any particular intervention on my part such as endoscopy or imaging studies. If things remains stable I will plan to see her in one year for a followup office visit. I did advise her to certainly call in the interim if she has any problems or questions I can be of assistance with. Sulema and Ed were comfortable with this plan. Thank you again for allowing me to participate in Sulema's care. I shall continue to keep you advised of her progress 01/20/2024 Hiatal hernia (ICD-10 - K44.9) Overall, Sulema appears quite well. She has remained quite stable on her current regimen of the omeprazole, sucralfate, and iron in regard to the previous history of anemia in association with upper GI bleeding. As such, I did advise her to continue those medications long-term. At this point I don't think she needs any particular intervention on my part such as endoscopy or imaging studies. If things remains stable I will plan to see her in one year for a followup office visit. I did advise her to certainly call in the interim if she has any problems or questions I can be of assistance with. Sulema and Ed were comfortable with this plan. Thank you again for allowing me to participate in Sulema's care. I shall continue to keep you advised of her progress 01/20/2024 Iron deficiency anemia due to chronic blood loss (ICD-10 - D50.0) Overall, Sulema appears quite well. She has remained quite stable on her current regimen of the omeprazole, sucralfate, and iron in regard to the previous history of anemia in association with upper GI bleeding. As such, I did advise her to continue those medications long-term. At this point I don't think she needs any particular intervention on my part such as endoscopy or imaging studies. If things remains stable I will plan to see her in one year for a followup office visit. I did advise her to certainly call in the interim if she has any problems or questions I can be of assistance with. Sulema and Ed were comfortable with this plan. Thank you again for allowing me to participate in Sulema's care. I shall continue to keep you advised of her progress 01/20/2024 UGI bleed (ICD-10 - K92.2) Overall, Sulema appears quite well. She has remained quite stable on her current regimen of the omeprazole, sucralfate, and iron in regard to the previous history of anemia in association with upper GI bleeding. As such, I did advise her to continue those medications long-term. At this point I don't think she needs any particular intervention on my part such as endoscopy or imaging studies. If things remains stable I will plan to see her in one year for a followup office visit. I did advise her to certainly call in the interim if she has any problems or questions I can be of assistance with. Sulema and Ed were comfortable with this plan. Thank you again for allowing me to participate in Sulema's care. I shall continue to keep you advised of her progress 01/20/2024 Gastroesophageal reflux disease with esophagitis, unspecified whether hemorrhage (ICD-10 - K21.00) Overall, Sulema appears quite well. She has remained quite stable on her current regimen of the omeprazole, sucralfate, and iron in regard to the previous history of anemia in association with upper GI bleeding. As such, I did advise her to continue those medications long-term. At this point I don't think she needs any particular intervention on my part such as endoscopy or imaging studies. If things remains stable I will plan to see her in one year for a followup office visit. I did advise her to certainly call in the interim if she has any problems or questions I can be of assistance with. Sulema and Ed were comfortable with this plan. Thank you again for allowing me to participate in Sulema's care. I shall continue to keep you advised of her progress Plan Of Treatment Pending Test Test Name Order Date IRON + IBC (FE) 03/11/2021 IRON + IBC (FE) 01/30/2021 IRON + IBC (FE) 05/29/2021 CBC w DIFF 05/29/2021 CBC w DIFF 03/11/2021 CBC w DIFF 02/20/2021 CBC w DIFF 01/30/2021 CBC w DIFF 06/28/2022 Ferritin 01/30/2021 Ferritin 05/29/2021 Ferritin 03/11/2021 Future Test Test Name Order Date UPPER GI ENDOSCOPY 08/11/2014 COLONOSCOPY 08/11/2014 UPPER GI ENDOSCOPY 01/01/2017 COLONOSCOPY 01/01/2017 UPPER GI ENDOSCOPY 07/27/2019 UPPER GI ENDOSCOPY 02/20/2021 Next Appt Details Provider Name:Emiliano Giuseppe Herrera , 01/19/2025 01:00:00 PM, [address], [address], [place], [address], Insurance Providers Payer Name Payer Address Payer Phone Subscriber Number Group Number Insured Name Patient Relationship to Insured Coverage Start Date Coverage End Date [facility] [employer] [address] [place] [address] [id number] SULEMA OLIVER Self - patient is the insured Medical (General) History Medical History History ICD Code GERD with HH with long segme nt of Sevilla's esophagus diagnosed in 1994-most recent EGD was in 12/2016-no dysplasia hyperlipidemia hypertension fatty liver-neg w/u-Negative Hepatitis serologies and autoimmune studies--AST 36 and ALT 33, Iron sat 15% with an Iron of 60 in 07/2012 Denies PR,CVA,Lung disease,r enal disease--has had a heart murmur [...] duodenal biopsies in 2003 Sevilla's esophagus-EGD 12/23 with the Sevilla's and biopsies neg for dysplasia; upper endoscopy in 2019 revealed similar findings in the Sevilla's esophagus with the associated moderate- sized hiatal hernia Hospitalization in late Deco 2020 for melena and anemia requiring 4 [...] -followed by --she is going to the [facility] in March of 2024 for further testing including a stress test with echocardiogram and either a MRI or CT scan of the heart Surgical History Surgery Date(Month/Year) appendectomy in December of 2010 complete hysterectomy
--- OUTSIDE RECORDS SUMMARY | 2024-07-09 11:20 | XMS_ITS ---
Author Organization [facility] Address [address] [place] [address] [place] [phone] Care Team Providers Care Residential Counselor Name Role Phone Jeffry CAROLINA, Colt Primary Care Provider Emiliano Chau [phone] REASON FOR VISIT pa needed for omeprazole/faxed pa. waiting on ins Medications Medication SIG (Take, Route, Fr equency, Duration) Notes Start Date End Date Status Omeprazole 40 MG TAKE 1 CAPSULE DAILY Orally Once a day for 90 days Active Encounters Encounter Location Date Provider Diagnosis [facility] [address] [place] [phone] 11/11/2023 Emiliano Herrera Plan Of Treatment Medication Medication Name Sig Start Date Stop Date Notes Omeprazole 40 MG TAKE 1 CAPSULE DAILY Orally Once a day for 90 days Next Appt Details Provider Name:Emiliano Herrera , 01/19/2025 01:00:00 PM, [address] [place] [address], Suite [facility], [place], [address], Progress Notes * TORIE SWIFTDOB:1945 (78 yo F)Acc No.[id number]:11/11/2023 Patient:?TORIE SWIFT :1945???Age:78 Y???Sex:Female Address:[address] [place] [address] * Refills? Refill Omeprazole Capsule Delayed Release, 40 MG, Orally, 90, TAKE 1 CAPSULE DAILY, Once a day, 90 days, Refills=3 * true * Date:? Generated for Valery jimenez/Walter/Nasreenitting on:?07/09/2024 11:19 AM EDT
--- OUTSIDE RECORDS SUMMARY | 2024-07-09 11:20 | XMS_ITS ---
Author Organization [facility] Address [address] [place] [phone] Care Team Providers Care Financial Adviser Name Role Phone Jeffry CAROLINA, Colt Primary Care Provider Emiliano Chau Unavailable [phone] Allergies Allergen (clinical drug ingredient) Drug/Non Drug Allergy documented on EMR Reaction Allergy Type Onset Date Status halothane (uncoded) Unknown Allergy Active enflurane (uncoded) Unknown Allergy Active piperacillin / tazobactam zosyn (uncoded) Unknown Allergy Active negran (uncoded) Unknown Allergy Act jose general anesthesia (uncoded) Unknown Allergy Active ethrane (uncoded) Unknown Allergy Ac tive REASON FOR VISIT Patient presents today for gerd Medications Medication SIG (Take, Route, Frequency, Duration) [...] e a day twice a week Active Vital Signs Blood pressure systolic 00 mm Hg 01/20/20 24 Blood pressure diastolic 00 mm Hg 024 Height 66.50 in 01/20/2024 Weight 165 lbs 01/20/2024 BMI 26.23 kg/m2 01/20/2024 Encounters Encounter Location Date Provider Diagnosis [facility] [address] [place] [address] 01/20/2024 Emiliano Herrera Sevilla's esophagus without dysplasia K22.70 ; Hiatal hernia K44.9 ; Iron deficiency anemia due to chronic blood loss D50.0 ; UGI bleed K92.2 and Gastroesophageal reflux disease with esophagitis, unspecified whether hemorrhage K21.00 Assessments Encounter Date Diagnosis (ICD Code) Assessment Notes Treatment Notes Treatment Clinical Notes Section Notes 01/20/2024 Sevilla's esophagus without dysplasia (ICD-10 - K22.70) Continue the same omeprazole and Sucralfate skilled nursing. Overall, Sulema appears quite well. She has [...] advised of her progress Plan Of Treatment Treatment Notes Assessment Notes Sevilla's esophagus without dysplasia Co ntinue the same omeprazole and Sucralfate skilled nursing. Next Appt Details Follow Up: 1 Year, Reason: Provider Name:Emiliano Herrera , 01/19/2025 01:00:00 PM, [address] [place] [address], [address], [address], Progress Notes * JENIFFER SULEMADOB:1945 (79 yo F)Acc No.[id number]:01/20/2024 Progress Notes Patient:?SULEMA SWIFT Provider:?Emiliano Herrera MD :1945???Age:79 Y???Sex:Female D ate:01/20/2024 Address:[address] [place], [place] [id number] Pcp:Colt Teran MD Subjective: * Chief Complaints: * ???Patient presents today fo r gerd * HPI: ???incontinence:? I saw Sulema in followup today in regard to her previous history of upper GI bleeding, chronic gastroesophageal reflux, and history of Sevilla's esophagus. She was accompanied by her significant other, Ed. ?I last saw Sulema in December 2022. Since that time she has remained on her regimen of omeprazole 40 mg daily, sucralfate 1 g q.i.d., and daily iron replacement. She reports that she has been feeling well from a GI standpoint. She enjoys a good appetite and denies any significant heartburn, dysphagia, early satiety, nausea, nor vomiting. Her bowel movements have been regular and without any signs of bleeding although they are dark on her daily iron. She denies any abdominal pain, jaundice, nor unintentional weight loss. Of note, she does remain on her Eliquis for her atrial fibrillation. ?Laboratories last month revealed a hemoglobin of 14.0 with a normal MCV, normal chemistries and renal function, and normal LFTs except for minimally elevated AST and ALT. ?She does advise me that she is going for cardiac testing in March at the [facility] in regard to an underlying hypertrophic cardiomyopathy. She describes that they will be doing a stress test with echocardiogram and either a CT or MRI of the heart. * ROS:?General/Constitutional:?Change in appetite?denies.?Chills?denies.?Fatigue?denies.?Ophthalmologic:?Patient denies? Negative..?ENT:?Patient denies?Negative..?Respiratory:?Patient denies?No coughing/hemoptysis..?Cardiovascular:?Patient denies? No chest pain/orthopnea..?Gastrointestinal:?Comments?See HPI for details.?Genitourinary:?Patient denies? No dysuria/hematuria..?Incontinence?admits.?Musculoskeletal:?Patient denies? No specific arthralgias/myalgias..?Skin:?Patient denies?No rash/pruritus..?Neurologic:?Patient denies? No headaches/seizures..?Psychiatric:?Patient denies?Negative..? * Medical History:? * Surgical History:?appendecto my in December of 2010 complete hysterectomy * Hospitalization/Major Diagno stic Procedure:?No Hospitalization History. * Family History:?Father: dece ased 88 yrs, hx of chronic pneumonia towards end of his life x 13-14 times , diagnosed with HTN (hypertension).?Mother: .? Patient denies family history of colon cancer, esophageal cancer , liver disease nor inflammatory bowel disease. * Social History:?Tobacco Use:?Tobacco Use/Smoking?Are you a: nonsmoker.?Drugs/Alcohol:?Alcohol Screen?Points: 0, Interpretation: Negative.?Miscellaneous:?Marital status: single. 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 ???She does not smoke or use any significant amounts of alcohol. * Medications:?TakingAtorvasta tin Calcium 10 MG Tablet 1 tablet Orally Once a dayVitamin D3 1000 UNIT Tablet 1 tablet Orally Once a dayRaloxifene HCl 60 MG Tablet 1 tablet Orally Once a day, Notes: (Evista)Vitamin B12 1000 MCG Tablet Extended Release 1 tablet Orally Once a day, Notes: twice a weekFerrous Sulfate 324 (65 Fe) MG Tablet Delayed Release 1 tablet Orally Once a daySucralfate 1 GM Tablet 1 tablet on an empty stomach Orally 30-60 minutes before each meal and at bedtimeSucralfate 1 GM Tablet 1 tablet on an empty stomach Orally Before each meal and at bedtimeLORazepam 0.5 MG Tablet TAKE 1/2 TABLET BY MOUTH TWICE A DAY NEEDED FOR ANXIETY Oral , Notes: prndilTIAZem HCl ER Coated Beads 240 MG Capsule Extended Release 24 Hour TAKE 1 CAPSULE BY MOUTH EVERY DAY Oral Amiodarone HCl 200 MG Tablet TAKE 1 TABLET BY MOUTH TWICE A DAY FOR 90 DAYS Oral Omeprazole 40 MG Capsule Delayed Release TAKE 1 CAPSULE DAILY Orally Once a dayEliquis 2.5 MG Tablet TAKE 1 TABLET BY MOUTH TWICE A DAY Oral Taking Atorvastatin Calcium 10 MG Tablet 1 tablet Orally Once a dayTaking Vitamin D3 1000 UNIT Tablet 1 tablet Orally Once a dayTaking Raloxifene HCl 60 MG Tablet 1 tablet Orally Once a day, Notes: (Evista)Taking Vitamin B12 1000 MCG Tablet Extended Release 1 tablet Orally Once a day, Notes: twice a weekTaking Ferrous Sulfate 324 (65 Fe) MG Tablet Delayed Release 1 tablet Orally Once a dayTaking Sucralfate 1 GM Tablet 1 tablet on an empty stomach Orally 30-60 minutes before each meal and at bedtimeTaking Sucralfate 1 GM Tablet 1 tablet on an empty stomach Orally Before each meal and at bedtimeTaking LORazepam 0.5 MG Tablet TAKE 1/2 TABLET BY MOUTH TWICE A DAY NEEDED FOR ANXIETY Oral , Notes: prnTaking dilTIAZem HCl ER Coated Beads 240 MG Capsule Extended Release 24 Hour TAKE 1 CAPSULE BY MOUTH EVERY DAY Oral Taking Amiodarone HCl 200 MG Tablet TAKE 1 TABLET BY MOUTH TWICE A DAY FOR 90 DAYS Oral Taking Omeprazole 40 MG Capsule Delayed Release TAKE 1 CAPSULE DAILY Orally Once a dayTaking Eliquis 2.5 MG Tablet TAKE 1 TABLET BY MOUTH TWICE A DAY Oral DiscontinuedPotassium Chloride ER 8 MEQ Tablet Extended Release 1 tablet Orally QDMedication List reviewed and reconciled with the patientDiscontinued Potassium Chloride ER 8 MEQ Tablet Extended Release 1 tablet Orally QDMedication List reviewed and reconciled with the patient * Allergies:?general anesthesi anegranzosynenfluranehalothaneethraneyes[Allergies Verified] Objective: * Vitals:?Wt: 165 lbs, Ht: 66. 50 in, BMI:26.23 Index, BP: 00/00 mm Hg. * Examination: ???General Examination: ?GENERAL APPEARANCE:?pleasant, well nourished, well developed, in no acute distress.?EYES:?sclera non-icteric.?ORAL CAVITY:?mucosa moist.?NECK/THYROID:?no cervical lymphadenopathy, neck supple.?SKIN:?nonjaundiced, no spider angiomata..?HEART:?S1, S2 normal.?LUNGS:?clear to auscultation bilaterally.?ABDOMEN:?normal bowel sounds, no guarding or rigidity, no hepatosplenomegaly, no masses palpable, soft, nontender, nondistended..?EXTREMITIES:?no edema.?NEUROLOGIC:?alert and oriented.? Assessment: * Assessment: 1.?Sevilla's esophagus witho ut dysplasia - K22.70 (Primary)?2.?Hiatal hernia - K44.9?3.?Iron deficiency anemia due to chronic blood loss - D50.0?4.?UGI bleed - K92.2?5.?Gastroesophageal reflux disease with esophagitis, unspecified whether hemorrhage - K21.00? Overall, Sulema appears suzanne te well. She has remained quite stable on [...] continue to keep you advised of her progress. Plan: * Treatment: * Procedure Codes:?1036F TOBAC CO [id number] BP SCR NOT PRFRM REC REASON NOS * Preventive Medicine:? ??Counseling:?Care goal follow-up plan:?Above Normal BMI Follow-up?Giving encouragement to exercise,?BMI management provided?Yes.? ??Urinary Incontinence:?Urinary Incontinence?Assessment:?Absent,?Plan of care documented:?No, reason not specified.? ??Screenings:?Fall Risk Screening?Fall Risk Assessment:?No falls in the past year,?Screening:?No falls in the past year,?Assessment:?Not performed, no reason specified,?Plan of Care:?Not documented, no reason specified.? * Follow Up:?1 Year * * Sign off status: Completed true * Provider:?Emiliano Herrera MD Date:? 024 Generated for Valery jimenez/Walter/Nasreenitting on:?07/09/2024 11:19 AM EDT History and Physical Notes * HPI (History of Present Illness) Category Sub-Category Detail Notes Category Not es incontinence I saw Sulema in followup today in regard to her previous history of upper GI bleeding, chronic gastroesophageal reflux, and history of Sevilla's esophagus. She was accompanied by her significant other, Ed. I last saw Sulema in December 2022. Since that time she has remained on her regimen of omeprazole 40 mg daily, sucralfate 1 g q.i.d., and daily iron replacement. She reports that she has been feeling well from a GI standpoint. She enjoys a good appetite and denies any significant heartburn, dysphagia, early satiety, nausea, nor vomiting. Her bowel movements have been regular and without any signs of bleeding although they are dark on her daily iron. She denies any abdominal pain, jaundice, nor unintentional weight loss. Of note, she does remain on her Eliquis for her atrial fibrillation. Laboratories last month revealed a hemoglobin of 14.0 with a normal MCV, normal chemistries and renal function, and normal LFTs except for minimally elevated AST and ALT. She does advise me that she is going for cardiac testing in March at the [facility] in regard to an underlying hypertrophic cardiomyopathy. She describes that they will be doing a stress test with echocardiogram and either a CT or MRI of the heart. Examination Category Sub-Category Detail Notes Category Not es General Examination GENERAL APPEARANCE: pleasant , well [...]
--- OUTSIDE RECORDS SUMMARY | 2024-07-09 11:20 | XMS_ITS ---
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 Name Role Phone Jeffry CAROLINA, Colt Primary Care Provider Emiliano Chau Unavailable [phone] Allergies Allergen (clinical drug ingredient) Drug/Non Drug Allergy documented on EMR Reaction Allergy Type Onset Date Status halothane (uncoded) Unknown Allergy Active enflurane (uncoded) Unknown Allergy Active piperacillin / tazobactam zosyn (uncoded) Unknown Allergy Active negran (uncoded) Unknown Allergy Act jose general anesthesia (uncoded) Unknown Allergy Active ethrane (uncoded) Unknown Allergy Ac tive REASON FOR VISIT Patient presents today for anemia Medications Medication SIG (Take, Route, Frequency, Duration) [...] tablet Orally Onc e a day Active Problems Problem Type SNOMED Code ICD Code Onset Dates Problem Status W/U Status Risk Notes Problem Gastroesophageal reflux disease with esophagitis (disorder) (443407431) Gastroesophageal reflux disease with esophagitis, unspecified whether hemorrhage (K21.00) Active confirmed Vital Signs Temperature 97.9 degrees Fahrenheit 01/18/20 23 Blood pressure systolic 000 mm Hg 01/18/20 23 Blood pressure diastolic 00 mm Hg 023 Height 66.50 in 01/17/2023 Weight 160 lbs 01/17/2023 BMI 25.44 kg/m2 01/17/2023 Encounters Encounter Location Date Provider Diagnosis [facility] [address] [place] [address] 01/17/2023 Emiliano Herrera Sevilla's esophagus without dysplasia K22.70 ; GERD with esophagitis K21.0 ; Acute gastric ulcer without hemorrhage or perforation K25.3 and Anemia due to acute blood loss D62 Assessments Encounter Date Diagnosis (ICD Code) Assessment Notes Treatment Notes Treatment Clinical Notes Section Notes 01/17/2023 Sevilla's esophagus without dysplasia (ICD-10 - K22.70) Continue the Omeprazole and Sucralfate halfway Overall, Sulema appears quite well the present time. She is not having any worrisome symptoms in regard to her previous history of reflux and Sevilla's esophagus. She is not showing any evidence of recurrent GI bleeding based on her clinical history and her most recent laboratories. As such, I did advise her to continue her daily regimen of the omeprazole and sucralfate long-term. She will continue to avoid aspirin and NSAIDs long-term as well. I don't think any further endoscopic intervention is required as long as things remain stable. I did advise her to see me in one year for a followup visit, but to certainly call sooner if she has any problems or questions I can be of assistance with. Sulema and Ed were comfortable with this plan. Thank you again for allowing me to participate in Sulema's care. I shall continue to keep you advised of her progress. 01/17/2023 GERD with esophagitis (ICD-10 - K21.0) Overall, Sulema appears quite well the present time. She is not having any worrisome symptoms in regard to her previous history of reflux and Sevilla's esophagus. She is not showing any evidence of recurrent GI bleeding based on her clinical history and her most recent laboratories. As such, I did advise her to continue her daily regimen of the omeprazole and sucralfate long-term. She will continue to avoid aspirin and NSAIDs long-term as well. I don't think any further endoscopic intervention is required as long as things remain stable. I did advise her to see me in one year for a followup visit, but to certainly call sooner if she has any problems or questions I can be of assistance with. Sulema and Ed were comfortable with this plan. Thank you again for allowing me to participate in Sulema's care. I shall continue to keep you advised of her progress. 01/17/2023 Acute gastric ulcer without hemorrhage or perforation (ICD-10 - K25.3) Overall, Sulema appears quite well the present time. She is not having any worrisome symptoms in regard to her previous history of reflux and Sevilla's esophagus. She is not showing any evidence of recurrent GI bleeding based on her clinical history and her most recent laboratories. As such, I did advise her to continue her daily regimen of the omeprazole and sucralfate long-term. She will continue to avoid aspirin and NSAIDs long-term as well. I don't think any further endoscopic intervention is required as long as things remain stable. I did advise her to see me in one year for a followup visit, but to certainly call sooner if she has any problems or questions I can be of assistance with. Sulema and Ed were comfortable with this plan. Thank you again for allowing me to participate in Sulema's care. I shall continue to keep you advised of her progress. 01/17/2023 Anemia due to acute blood loss (ICD-10 - D62) Overall, Sulema appears quite well the present time. She is not having any worrisome symptoms in regard to her previous history of reflux and Sevilla's esophagus. She is not showing any evidence of recurrent GI bleeding based on her clinical history and her most recent laboratories. As such, I did advise her to continue her daily regimen of the omeprazole and sucralfate long-term. She will continue to avoid aspirin and NSAIDs long-term as well. I don't think any further endoscopic intervention is required as long as things remain stable. I did advise her to see me in one year for a followup visit, but to certainly call sooner if she has any problems or questions I can be of assistance with. Sulema and Ed were comfortable with this plan. Thank you again for allowing me to participate in Sulema's care. I shall continue to keep you advised of her progress. Plan Of Treatment Treatment Notes Assessment Notes Sevilla's esophagus without dysplasia Co ntinue the Omeprazole and Sucralfate halfway Next Appt Details Follow Up: 1 Year, Reason: Provider Name:Emiliano Herrera , 01/19/2025 01:00:00 PM, [address] [place] [address], [address], [place], [address], Progress Notes * JENIFFER SULEMADOB:1945 (78 yo F)Acc No.[id number]:01/17/2023 Progress Notes Patient:?JENIFFER SULEMA Provider:?Emiliano Herrera MD :1945???Age:78 Y???Sex:Female D ate:01/17/2023 Address:[address] [place], [place] [id number] Pcp:Colt Teran MD Subjective: * Chief Complaints: * ???Patient presents today fo r anemia * HPI: ???incontinence:? I saw Sulema in followup today in regard to her history of previous GI bleeding, as well as her underlying history of Sevilla's esophagus and reflux. She is accompanied by her significant other, Ed. ?Since I last saw Sulema in June she reports that she has been doing very well from a GI standpoint and in general. She has remained on her daily 20 mg omeprazole and sucralfate 1 g q.i.d.. She has had no signs of bleeding and specifically denies any melena nor hematochezia. She enjoys a good appetite, without any significant heartburn or dysphagia. She denies abdominal pain, jaundice, nausea, or vomiting. ?She did decide to hold off on the Watchman procedure and does remain on her Eliquis for the underlying atrial fibrillation. She also remains in iron supplements. ?Her most recent labs at the end of February showed a normal hemoglobin of 13.8 with a normal MCV, normal chemistries and renal function, and normal LFTs. * ROS:?General/Constitutional:?Change in appetite?denies.?Chills?denies.?Fatigue?denies.?Ophthalmologic:?Patient denies? Negative..?ENT:?Patient denies?Negative..?Respiratory:?Patient denies?No coughing/hemoptysis..?Cardiovascular:?Patient denies? No chest pain/orthopnea..?Gastrointestinal:?Comments?See HPI for details.?Genitourinary:?Patient denies? No dysuria/hematuria..?Incontinence?admits.?Musculoskeletal:?Patient denies? No specific arthralgias/myalgias..?Skin:?Patient denies?No rash/pruritus..?Neurologic:?Patient denies? No headaches/seizures..?Psychiatric:?Patient denies?Negative..? * Medical History:? * Surgical History:?appendecto my in December of 2010 complete hysterectomy * Hospitalization/Major Diagno stic Procedure:?Denies Past Hospitalization * Family History:?Father: dece ased 88 yrs, hx of chronic pneumonia towards end of his life, diagnosed with HTN (hypertension).?Mother: .? Patient denies family history of colon cancer, esophageal cancer , liver disease nor inflammatory bowel disease. * Social History:?Tobacco Use:?Tobacco Use/Smoking?Are you a: nonsmoker.?Drugs/Alcohol:?Alcohol Screen?Points: 0, Interpretation: Negative.?Miscellaneous:?Marital status: single. 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 ???She does not smoke or use any [...] TWICE A DAY NEEDED FOR ANXIETY Oral dilTIAZem HCl ER Coated Beads 240 MG Capsule Extended Release 24 Hour TAKE 1 CAPSULE BY MOUTH EVERY DAY Oral Amiodarone HCl 200 MG Tablet TAKE 1 TABLET BY MOUTH TWICE A DAY FOR 90 DAYS Oral Omeprazole 40 MG Capsule Delayed Release TAKE 1 CAPSULE BY MOUTH EVERY DAY Taking Atorvastatin Calcium 10 MG Tablet 1 [...] TWICE A DAY NEEDED FOR ANXIETY Oral Taking dilTIAZem HCl ER Coated Beads 240 MG Capsule Extended Release 24 Hour TAKE 1 CAPSULE BY MOUTH EVERY DAY Oral Taking Amiodarone HCl 200 MG Tablet TAKE 1 TABLET BY MOUTH TWICE A DAY FOR 90 DAYS Oral Taking Omeprazole 40 MG Capsule Delayed Release TAKE 1 CAPSULE BY MOUTH EVERY DAY UnknownPotassium Chloride ER 8 MEQ Tablet Extended Release 1 tablet Orally QDMedication List reviewed and reconciled with the patientUnknown Potassium Chloride ER 8 MEQ Tablet Extended Release 1 tablet Orally QDMedication List reviewed and reconciled with the patient * Allergies:?general anesthesi anegranzosynenfluranehalothaneethrane Objective: * Vitals:?Wt: 160 lbs, Ht: 66. 50 in, BMI:25.44 Index, BP: 000/00 mm Hg, Temp: 97.9. * Examination: ???General Examination: ?GENERAL APPEARANCE:?pleasant, well nourished, well developed, in no acute distress.?EYES:?sclera non-icteric.?ORAL CAVITY:?mucosa moist.?NECK/THYROID:?no cervical lymphadenopathy, neck supple.?SKIN:?nonjaundiced, no spider angiomata..?HEART:?S1, S2 normal.?LUNGS:?clear to auscultation bilaterally.?ABDOMEN:?normal bowel sounds, no guarding or rigidity, no hepatosplenomegaly, no masses palpable, soft, nontender, nondistended..?EXTREMITIES:?no edema.?NEUROLOGIC:?alert and oriented.? Assessment: * Assessment: 1.?Sevilla's esophagus witho ut dysplasia - K22.70 (Primary)?2.?GERD with esophagitis - K21.0?3.?Acute gastric ulcer without hemorrhage or perforation - K25.3?4.?Anemia due to acute blood loss - D62? Overall, Sulema appears suzanne te well the present time. She is not having any worrisome symptoms in regard to her previous history of reflux and Sevilla's esophagus. She is not showing any evidence of recurrent GI bleeding based on her clinical history and her most recent laboratories. As such, I did advise her to continue her daily regimen of the omeprazole and sucralfate long-term. She will continue to avoid aspirin and NSAIDs long-term as well. I don't think any further endoscopic intervention is required as long as things remain stable. I did advise her to see me in one year for a followup visit, but to certainly call sooner if she has any problems or questions I can be of assistance with. Sulema and Ed were comfortable with this plan. Thank you again for allowing me to participate in Sulema's care. I shall continue to keep you advised of her progress. Plan: * Treatment: * Procedure Codes:?1036F TOBAC CO [id number] BP SCR NOT PRFRM REC REASON NOS * Preventive Medicine:? ??Counseling:?Care goal follow-up plan:?Above Normal BMI Follow-up?Giving encouragement to exercise,?BMI management provided?Yes.? ??Urinary Incontinence:?Urinary Incontinence?Assessment:?Absent,?Plan of care documented:?No, reason not specified.? * Follow Up:?1 Year * * Sign off status: Completed true * Provider:?Emiliano Herrera MD Date:? 023 Generated for Valery jimenez/Walter/Nasreenitting on:?07/09/2024 11:19 AM EDT History and Physical Notes * HPI (History of Present Illness) Category Sub-Category Detail Notes Category Not es incontinence I saw Sulema in followup today in regard to her history of previous GI bleeding, as well as her underlying history of Sevilla's esophagus and reflux. She is accompanied by her significant other, Ed. Since I last saw Sulema in June she reports that she has been doing very well from a GI standpoint and in general. She has remained on her daily 20 mg omeprazole and sucralfate 1 g q.i.d.. She has had no signs of bleeding and specifically denies any melena nor hematochezia. She enjoys a good appetite, without any significant heartburn or dysphagia. She denies abdominal pain, jaundice, nausea, or vomiting. She did decide to hold off on the Watchman procedure and does remain on her Eliquis for the underlying atrial fibrillation. She also remains in iron supplements. Her most recent labs at the end of February showed a normal hemoglobin of 13.8 with a normal MCV, normal chemistries and renal function, and normal LFTs. Examination Category Sub-Category Detail Notes Category Not [...]
== END 2024-07-09 10:20 | disposition home or self-care (01) ==
LOC: HO.LAB 10:19
PROVIDERS: PCP Internal Medicine; Visit Provider Internal Medicine
DX: R30.0 Dysuria (principal)
CPT/HCPCS: 81001; 81003; 87086

== ENCOUNTER 2024-07-26 12:48 | Outpatient (AMB) | payer BC, SELFPAY ==
--- NOTE | 2024-07-26 13:05 | MHC.OFFVIS ---
Intake Visit Reasons: kidney mass Intake Note: New patient presents today for initial visit for kidney mass Urology Medication:Vitamin B12 Blood Thinner:Apixaban Antibiotic Allergies:None Allergies enflurane [ENFLURANE] Allergy (Severe, Verified 07/26/24 13:49) Per Patient Liver toxicity piperacillin [Zosyn] Allergy (Severe, Verified 07/26/24 13:49) Rash tazobactam [Zosyn] Allergy (Severe, Verified 07/26/24 13:49) Rash Medication List - Last Reconciled 07/26/24 by SALLY Ferguson- amiodarone 200 mg PO DAILY atorvastatin 10 mg PO DAILY cholecalciferol (vitamin D3) 25 mcg PO DAILY 90 days cyanocobalamin (vitamin B-12) (Vitamin B-12) 1,000 mcg PO DAILY 90 days diltiazem HCl CD 240 mg See Protocol PO DAILY 90 days Eliquis (apixaban) 2.5 mg PO BID 90 days NS ferrous sulfate 325 mg PO BID [FRONT-WHEELED WALKER As directed ; Ht = 5'6 ; Wt = 164 lbs; Rx is for INDEFINITE/PERMANENT/FOREVER/LIFETIME USE] lorazepam 0.5 mg PO BID PRN omeprazole 40 mg PO DAILY@0630 raloxifene 60 mg PO DAILY 90 days [SHOWER CHAIR As directed; Rx is for INDEFINITE/PERMANENT/FOREVER/LIFETIME USE] sucralfate (Carafate) 1 g PO QIDACHS 30 days HPI Comments Details: Sulema is a very pleasant 79-year-old female patient of Dr. Teran who was accompanied by her significant other at today's office visit. She has a past medical history of recurrent urinary tract infections, degenerative disc disease of thoracic spine, paroxysmal AFib, hypertrophic cardiomyopathy, anemia, gastric ulcer, vitamin-D deficiency, osteoarthritis, hiatal hernia, cardiac murmur, anemia, osteopenia, Sevilla's esophagus, hypertension, and hypercholesteremia. She presents to the office today as a new patient for recurrent urinary tract infections as well as renal mass. In discussion with the patient today she reports having followed up with her PCP and microscopic hematuria was noted at which time an ultrasound was ordered for further assessment evaluation. These results were reviewed and communicated with the patient today. 05/18 bilateral kidneys with no nephrolithiasis or hydronephrosis. Indeterminate mass in the right kidney measuring 2 cm. Further characterization with dictated renal CT and or MRI suggested. She reports PCP has ordered a CT study that she is due to have done in completed tomorrow. She discusses previously following up with [facility] for recurrent urinary tract infections as well as a renal cyst however was discharged over 10 years ago as she was told cyst was simple and benign and not had been having any other issues. She reports finishing a course of Macrobid last Friday due to having a urinary tract infection. In office urinalysis results reviewed with the patient today negative nitrates negative microscopic hematuria. We did discussed potential causes of recurrent urinary tract infections as well as further treatment options and risks and benefits of these treatment options. In review of patient's chart it appears urine culture 04/17 E coli and 07/16 mixed bacterial tani characteristics of urogenital contamination. She reports typical UTI like symptoms are dysuria and urinary urgency. She currently denies any UTI like symptoms. She denies incontinence, nocturia, visible/gross hematuria, dysuria, foul smelling urine, changes to urinary stream, flank pain, fever, and or chills. She is happy with her current voiding parameters. [facility] Medical History Degenerative joint disease of thoracic spine Gastrointestinal bleed Paroxysmal atrial fibrillation Afib Hypertrophic cardiomyopathy Atrial fibrillation with RVR Anemia Gastric ulcer History of blood transfusion Vitamin B12 deficiency Overweight (BMI 25.0-29.9) Primary osteoarthritis of hand Vitamin D deficiency Osteopenia Anemia Cardiac murmur Hiatal hernia Sevilla's esophagus Benign essential hypertension Pure hypercholesterolemia Surgical History History of esophagogastroduodenoscopy (EGD) History of appendectomy History of hysterectomy Family History Father Hypertension Mother Stroke Social History Household Members: Spouse Housing: House Do you presently have visiting nurse or other home services: No Alcohol intake: never Patient Tobacco Use Status: Never used Tobacco e-Cigarette/Vaping Use: Never Used Second Hand Smoke Exposure: No Advance Directives Date on File: 01/22/21 service: No Current occupational status: retired Cognitive needs: Yes (walker, cane) Hearing needs: No Vision needs: Yes (glasses) Review of Systems Eyes Reports no additional complaints ENT Reports no additional complaints Card Reports as per [facility] Resp Reports no additional complaints GI Reports as per [facility] Reports as per [facility] Musc Reports as per [facility] Neuro Reports no additional complaints Psych Reports no additional complaints Endo Reports as per [facility] Basil/Lymph Reports as per [facility] Physical Exam Const General: cooperative, healthy appearing, comfortable, no acute distress, well developed, alert and awake Orientation/consciousness: patient oriented x3 Limitations: no limitations HEENT Head: Yes normal to inspection, Yes normocephalic and Yes atraumatic Ears: hearing grossly normal bilaterally Eyes General: appearance normal, both eyes and all related structures Neck Neck: Yes normal visual inspection and Yes trachea midline Chest Chest palpation & inspection: normal inspection of the chest Resp Effort & Inspection: normal respiratory effort and able to speak in complete sentences Cardio Rate: regular rate GI Inspection: Yes normal to inspection General: Yes no CVA tenderness Back/Spine/Pelvis Back: no CVA tenderness Skin General skin exam: no rashes or lesions noted Neuro General: patient oriented x3 Extrem General: Yes normal to inspection Psych Appearance: grossly normal and well kempt Mental Status: mental status grossly normal Speech and movement: Normal speech and movement present and Clear speech present Affect: normal affect Attitude: cooperative Thought process: Normal thought process present Thought content: Normal thought content present Insight: Fair insight present (Psych) Judgement: Fair judgement present (Psych) Results Reviewed Results Reviewed: Date of Service: 05/20/24 Procedure(s): US abdomen complete Findings: The pancreas is obscured by bowel gas precluding evaluation. The visualized abdominal aorta is normal caliber. The liver appears echogenic. Right hepatic lobe measures 14.3 cm. There is no intrahepatic bile duct dilatation. Common bile duct measures 3.3 mm. The gallbladder is normal. There is no sonographic Baker sign. The main portal vein is antegrade. Right kidney measures 10.9 cm in length. There is no hydronephrosis or large shadowing calculus. There is a mixed echotexture cortical lesion in the midpole that measures 2.1 x 2.0 x 2.0 cm. Left kidney measures 10 cm in length. There is no hydronephrosis, large shadowing calculus or cortical mass lesion. The spleen is normal. No ascites. IMPRESSION: 1. No hydronephrosis or nephrolithiasis. 2. Indeterminate mass in the right kidney measures 2 cm. Further characterization with dedicated renal CT or MRI is suggested. 3. Mild hepatic steatosis. Assessment & Plan Assessment & Plan (1) Renal mass, right: Code(s): N28.89 - Other specified disorders of kidney and ureter Category: Medical (2) Recurrent urinary tract infection: Code(s): N39.0 - Urinary tract infection, site not specified Category: Medical Plan In office urinalysis results reviewed with the patient today; as noted above. We discussed at length potential causes of recurrent urinary tract infections as well as further treatment options and risks and benefits of these treatment options. Keep scheduled CT as planned. Start Estrace cream as discussed and prescribed. We discussed importance of adequate hydration relation to recurrent urinary tract infections as well as overall health and well-being. Recent renal imaging results were reviewed with the patient today; as noted above. All questions were answered. Discussed UTI prevention with D mannose supplement, vitamin-C, increasing fluid intake, behavioral therapy with timed voiding, perineal hygiene and postcoital voiding, and management of constipation with stool softeners and increased fiber intake. Follow-up in 1-2 months with imaging and PVR; or sooner with any issues, concerns, and or questions. Orders: Orders AMB Urinalysis Automated Today Z13.9 - Encounter for screening, unspecified Medications: New estradiol 0.01%(0.1mg/gram) (Estrace) Apply a pea-sized amount to urethra daily x1 month and then 3 times per week thereafter 2 grams vaginal DAILY 90 days 42.5 grams 2RF Patient Instructions: The patient had an opportunity to ask questions regarding the treatment plan. All questions were answered. Physical exam, labs, and imaging were discussed and reviewed in detail. As well as risks, benefits, and discussion of treatment choices. No major barriers to understanding were identified. The patient expressed understanding and agreement with the above treatment plan. The patient was made aware they should contact our office by phone for worsening of their current condition, the appearance of new symptoms, or with any questions or concerns. Compliance is encouraged with any medications and follow up testing that is ordered. It is a privilege to be allowed the opportunity to participate in? your urological care.? Again, if you have any questions or concerns If you have any questions or concerns please do not hesitate to contact me. The office is [phone]. This note is constructed using voice recognition software. While every effort has been made to ensure accuracy big machine consultant errors may have been included. Yours sincerely, SALLY Ferguson-LEXX Coding Level of Care Code New Pt Level 4 (64247) Diagnoses Renal mass, right N28.89 Recurrent urinary tract infection N39.0
--- OUTSIDE RECORDS SUMMARY | 2024-07-26 14:12 | XMS_ITS | Patient Health Record ---
Author Organization [facility] Address [address] [place] [address] Care Team Providers Care Gastroenterologist Name Role Phone Colt Teran MD Primary Care Provider Emiliano Chau Unavailable [phone] Allergies Allergen (clinical drug ingredient) Drug/Non Drug [...] Provider Speciality Internal M edicine Referred Organization [facility] Referred Provider Emiliano Herrera Referred Address [address] [place] [address], [address],[place], [place],[address], Referred Provider Specialty Gastroentero logy General Notes Dionne Ward 024 04:02:09 PM EDT > called [phone] to [facility] an [facility] referral for [...] Problem Status W/U Status Risk Notes Problem 374081788 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 Problem 880407824 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 Problem 89799260 Acute gastric ul cer without hemorrhage or perforation (K25.3) Active confirmed Problem Chronic gastric ulcer with perforation (92368387) Chronic or unspecified gastric ulcer with perforation (K25.5) Active confirmed Problem Benign neoplasm of stomach (91220943) Polyp of stomach and duodenum (K31.7) Active confirmed Problem Duodenitis (54546590) Duodenitis (K29.80) Active confirmed Problem 25860201 Blood in stool (K92.1) Active confirmed Problem 299404194 Diverticulosis (K57.90) Active confirmed Problem 93136203 Heme + stool (R19.5) Active confirmed Problem 61213830 Hiatal hernia (K44.9) Active confirmed Problem Benign neoplasm of stomach (34629584) Gastric polyps (K31.7) Active confirmed Problem 531387278 Iron deficiency anemia due to chronic blood loss (D50.0) Active confirmed Problem 319544271 GERD with esophagitis (K21.0) Active confirmed Problem 59793025 UGI bleed (K92.2) Active confirmed Problem 370152747 Angiodysplasia o f colon (K55.20) Active confirmed Problem Hemorrhage of colon due to diverticulosis (076767162837535) Diverticulosis large intestine w/o perforation or abscess w/bleeding (K57.31) Active confirmed Problem Sevilla esophagus (626756616) 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) Active confirmed Problem Chronic gastritis (2731909) Chronic gastritis (K29.50) Active confirmed Problem 520551965 Anemia due to ot her cause, not classified (D64.89) Active confirmed Problem 678793108 Anemia due to ac [place] blood loss (D62) Active confirmed Problem Gastroesophageal reflux disease with esophagitis, unspecified whether hemorrhage (K21.00) Active confirmed Vital Signs Blood pressure diastolic 00 mm Hg 01/20/2024 Height 66.50 in 01/20/2024 Blood pressure systolic 00 mm Hg 01/20/2024 Weight 165 lbs 01/20/2024 BMI 26.23 kg/m2 01/20/2024 Encounters Encounter Location Date Provider Diagnosis [facility] [address] [place] [address] 01/20/2024 Emiliano Herrera Sevilla's esophagus without dysplasia K22.70 ; Hiatal hernia K44.9 ; Iron deficiency anemia due to chronic blood loss D50.0 ; UGI bleed K92.2 and Gastroesophageal reflux disease with esophagitis, unspecified whether hemorrhage K21.00 [facility] [address] [place] [address] 11/11/2023 Emiliano Herrera Assessments Encounter Date Diagnosis (ICD Code) Assessment Notes Treatment Notes Treatment Clinical Notes Section Notes 01/20/2024 Sevilal's esophagus without dysplasia (ICD-10 - K22.70) Continue the same omeprazole and Sucralfate [employer] terminal agent. Overall, Sulema appears quite well. She has [...] Name Order Date IRON + IBC (FE) 01/30/2021 IRON + IBC (FE) 05/29/2021 IRON + IBC (FE) 03/11/2021 CBC w DIFF 03/11/2021 CBC w DIFF 02/20/2021 CBC w DIFF 01/30/2021 CBC w DIFF 06/28/2022 CBC w DIFF 05/29/2021 Ferritin 05/29/2021 Ferritin 03/11/2021 Ferritin 01/30/2021 Future Test Test Name Order Date UPPER GI ENDOSCOPY 08/11/2014 COLONOSCOPY 08/11/2014 UPPER GI ENDOSCOPY 01/01/2017 COLONOSCOPY 01/01/2017 UPPER GI ENDOSCOPY 07/27/2019 UPPER GI ENDOSCOPY 02/20/2021 Next Appt Details Provider Name:Emiliano Herrera , 01/19/2025 01:00:00 PM, [address] [place] [address], [address], [place], [address], Insurance Providers Payer Name Payer Address Payer Phone Subscriber Number Group Number Insured Name Patient Relationship to Insured Coverage Start Date Coverage End Date [facility] [employer] PROF[employer]AL CLAIMS [address] [place] [address] [id number] SULEMA OLIVER Self - patient is the insured Medical (General) History Medical History History ICD Code GERD with HH with long segme nt of Sevilla's esophagus diagnosed in 1994-most recent EGD was in 12/2016-no dysplasia hyperlipidemia hypertension fatty liver-neg w/u-Negative Hepatitis serologies and autoimmune studies--AST 36 and ALT 33, Iron sat 15% with an Iron of 60 in 07/2012 Denies [place],CVA,Lung disease,r enal disease--has had a heart murmur [...] -followed by --she is going to the [facility] clinic in March of 2024 for further testing including a stress test with echocardiogram and either a MRI or CT scan of the heart Surgical History Surgery Date(Month/Year) appendectomy in December of 2010 complete hysterectomy
== END 2024-07-26 14:03 | disposition home or self-care (01) ==
LOC: HO.HUSH 12:49
PROVIDERS: PCP Internal Medicine; Visit Provider Nurse Practitioner Family
DX: N28.89 Other specified disorders of kidney and ureter (principal); N39.0 Urinary tract infection, site not specified; Z13.9 Encounter for screening, unspecified
CPT/HCPCS: 99204

== ENCOUNTER → 2024-07-26 12:48 | Outpatient (BNVA) | payer BC, SELFPAY | PROVIDERS: PCP Internal Medicine; Visit Provider Nurse Practitioner Family | DX: N28.89 Other specified disorders of kidney and ureter (principal); N39.0 Urinary tract infection, site not specified | CPT/HCPCS: 81003 ==

== ENCOUNTER 2024-07-27 09:25 | Outpatient (REF) | payer BC, SELFPAY ==
--- NOTE | ~2024-07-27 | CT_ITS ---
CLINICAL HISTORY: N28.89 - Other specified disorders of kidney and ureter CT abdomen with and without contrast Comparison: CT - CT ABDOMEN WO/W IV CON - 07/27/24 09:48 EDT Findings: No consolidation or effusion. There is a 2 cm heterogeneous lesion in the midpole of the right kidney only clearly identifiable on the post contrasted images. The rest of the solid organs are unremarkable. No bowel obstruction, pneumoperitoneum, or pneumatosis. No acute fracture. IMPRESSION: Heterogeneous circumscribed lesion in the midpole of the right kidney measures soft tissue density. A renal cell carcinoma is not excluded. Tissue diagnosis is recommended. This document has been electronically signed by: David Cisneros MD on 07/28/2024 13:11:08
[2024-07-27] MEDS: iohexoL 350 MG/ML 100 ML INFUS..BTL IV (09:58)
--- OUTSIDE RECORDS SUMMARY | 2024-07-27 10:18 | XMS_ITS | Patient Health Record ---
Author Organization [facility] Address [address] [facility] [address] [place] [address] Care Team Providers Care Applications Engineer Manufacturing Name Role Phone Colt Teran MD Primary Care Provider Emiliano Chau Unavailable [phone] Allergies Allergen (clinical drug ingredient) Drug/Non Drug Allergy documented on EMR Reaction Allergy Type Onset Date Status ethrane (uncoded) Unknown Allergy Ac tive halothane (uncoded) Unknown Allergy Active enflurane (uncoded) Unknown Allergy Active piperacillin / tazobactam zosyn (uncoded) Unknown Allergy Active negran (uncoded) Unknown Allergy Act jose general anesthesia (uncoded) Unknown Allergy Active Reason For Referral Referring Provider First Name Colt Referring Provider Last Name Jeffry Referring Provider Speciality Internal M edicine Referred Organization [facility] Referred Provider Emiliano Herrera Referred Address [address] [place] [address], [address],[place], [place],[address], Referred Provider Specialty Gastroentero logy General Notes Dionne Ward 024 04:02:09 PM EDT > called [phone] to request an [facility] blue referral for visit with Dr. 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 Problem 62706661 Acute gastric ul cer without hemorrhage or perforation (K25.3) Active confirmed Problem Chronic gastric ulcer with perforation (34622183) Chronic or unspecified gastric ulcer with perforation (K25.5) Active confirmed Problem Benign neoplasm of stomach (39285151) Polyp of stomach and duodenum (K31.7) Active confirmed Problem Duodenitis (16678598) Duodenitis (K29.80) Active confirmed Problem 69921479 Blood in stool (K92.1) Active confirmed Problem 993640032 Diverticulosis (K57.90) Active confirmed Problem 68976301 Heme + stool (R19.5) Active confirmed Problem 47107135 Hiatal hernia (K44.9) Active confirmed Problem Benign neoplasm of stomach (00146652) Gastric polyps (K31.7) Active confirmed Problem 355453209 Iron deficiency anemia due to chronic blood loss (D50.0) Active confirmed Problem 285867529 GERD with esophagitis (K21.0) Active confirmed Problem 98644680 UGI bleed (K92.2) Active confirmed Problem 770066683 Angiodysplasia o f colon (K55.20) Active confirmed Problem Hemorrhage of colon due to diverticulosis (440599079905080) Diverticulosis large intestine w/o perforation or abscess w/bleeding (K57.31) Active confirmed Problem Sevilla esophagus (337246134) 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) Active confirmed Problem Chronic gastritis (5794846) Chronic gastritis (K29.50) Active confirmed Problem 150541320 Anemia due to ot her cause, not classified (D64.89) Active confirmed Problem 470009796 Anemia due to ac [place] blood loss (D62) Active confirmed Problem Gastroesophageal reflux disease with esophagitis, unspecified whether hemorrhage (K21.00) Active confirmed Vital Signs Blood pressure diastolic 00 mm Hg 01/20/2024 Height 66.50 in 01/20/2024 Blood pressure systolic 00 mm Hg 01/20/2024 Weight 165 lbs 01/20/2024 BMI 26.23 kg/m2 01/20/2024 Encounters Encounter Location Date Provider Diagnosis [facility] [address] [place] [address] 01/20/2024 Emiliano Herrera Sevilla's esophagus without dysplasia K22.70 ; Hiatal hernia K44.9 ; Iron deficiency anemia due to chronic blood loss D50.0 ; UGI bleed K92.2 and Gastroesophageal reflux disease with esophagitis, unspecified whether hemorrhage K21.00 [facility] [address] [place] [address] 11/11/2023 Emiliano Herrera Assessments Encounter Date Diagnosis (ICD Code) Assessment Notes Treatment Notes Treatment Clinical Notes Section Notes 01/20/2024 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 Overall, Sulema appears quite well. She has [...] again for allowing me to participate in uSlema's care. I shall continue to keep you [...] Provider Name:Emiliano Herrera , 01/19/2025 01:00:00 PM, [address] [place] [address], [address], [place], [address], Insurance Providers Payer Name Payer Address Payer Phone Subscriber Number Group Number Insured Name Patient Relationship to Insured Coverage Start Date Coverage End Date [facility] [employer] PROFESSIONAL CLAIMS [address] [place] [address] [id number] SULEMA OLIVER Self - patient is the insured Medical (General) History Medical History History ICD Code GERD with HH with long segme nt of Sevilla's esophagus diagnosed in 1994-most recent EGD was in 12/2016-no dysplasia hyperlipidemia hypertension fatty liver-neg w/u-Negative Hepatitis serologies and autoimmune studies--AST 36 and ALT 33, Iron sat 15% with an Iron of 60 in 07/2012 Denies [place],CVA,Lung disease,r enal disease--has had a heart murmur [...] -followed by --she is going to the [facility] clinic in March of 2024 for further testing including a stress test with echocardiogram and either a MRI or CT scan of the heart Surgical History Surgery Date(Month/Year) appendectomy in December of 2010 complete hysterectomy
--- OUTSIDE RECORDS SUMMARY | 2024-07-27 10:18 | XMS_ITS ---
Author Organization [facility] Address [address] [place] [address] [place] [address] Care Team Providers Care Shoe Lacer Name Role Phone Jeffry CAROLINA, Colt Primary Care Provider Emiliano Chau [phone] REASON FOR VISIT pa needed for omeprazole/faxed pa. waiting on ins Medications Medication SIG (Take, Route, Fr equency, Duration) Notes Start Date End Date Status Omeprazole 40 MG TAKE 1 CAPSULE DAILY Orally Once a day for 90 days Active Encounters Encounter Location Date Provider Diagnosis [facility] [address] [address] 11/11/2023 Emiliano Herrera Plan Of Treatment Medication Medication Name Sig Start Date Stop Date Notes Omeprazole 40 MG TAKE 1 CAPSULE DAILY Orally Once a day for 90 days Next Appt Details Provider Name:Emiliano Herrera , 01/19/2025 01:00:00 PM, [address] [place] [address], Suite [facility], [place], [address], Progress Notes * TORIE SWIFTDOB:1945 (78 yo F)Acc No.[id number]:11/11/2023 Patient:?TORIE SWIFT :1945???Age:78 Y???Sex:Female Address:[address] [place] [address] * Refills? Refill Omeprazole Capsule Delayed Release, 40 MG, Orally, 90, TAKE 1 CAPSULE DAILY, Once a day, 90 days, Refills=3 * true * Date:? Generated for Valery jimenez/Walter/Nasreenitting on:?07/27/2024 10:18 AM EDT
--- OUTSIDE RECORDS SUMMARY | 2024-07-27 10:18 | XMS_ITS ---
Author Organization [facility] Address [address] [place] [address] Care Team Providers Care Speech Therapist Technician Name Role Phone Jeffry CAROLINA, Colt Primary Care Provider Emiliano Chau [phone] Allergies Allergen (clinical drug ingredient) Drug/Non Drug [...] 01/20/2024 Encounters Encounter Location Date Provider Diagnosis [facility] [address] [place] [address] 01/20/2024 Emiliano Herrera Sevilla's esophagus without dysplasia [...] K22.70) Continue the same omeprazole and Sucralfate [facility]. Overall, Sulema appears quite well. She has [...] Co ntinue the same omeprazole and Sucralfate [facility]. Next Appt Details Follow Up: 1 Year, Reason: Provider Name:Emiliano Herrera , 01/19/2025 01:00:00 PM, [address] [place] [address], [address], [address], Progress Notes * JENIFFER SULEMADOB:1945 (79 yo F)Acc No.[id number]:01/20/2024 Progress Notes Patient:?SULEMA SWIFT Provider:?Emiliano Herrera MD :1945???Age:79 Y???Sex:Female D ate:01/20/2024 Address:[address] [place], [place] [id number] Pcp:Colt Teran MD Subjective: * Chief Complaints: [...] for cardiac testing in March at the [facility] in regard to an underlying hypertrophic cardiomyopathy. 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 ???She does not smoke or use any [...] * Treatment: * Procedure Codes:?1036F TOBAC CO NON-[id number] BP SCR NOT PRFRM REC REASON NOS [...] Herrera MD Date:? 024 Generated for Valery jimenez/Walter/Jeny on:?07/27/2024 10:18 AM EDT History and Physical Notes * [...] for cardiac testing in March at the [facility] in regard to an underlying hypertrophic cardiomyopathy. [...]
[2024-07-27 12:28] LABS: GFR POC 59
== END 2024-07-27 09:26 | disposition home or self-care (01) ==
LOC: HO.CT 09:25
PROVIDERS: PCP Internal Medicine
DX: N28.89 Other specified disorders of kidney and ureter (principal)
CPT/HCPCS: 74170; 82565; Q9967

== ENCOUNTER → 2024-07-27 09:27 | Outpatient (BNV) | payer BC, SELFPAY | PROVIDERS: PCP Internal Medicine; Visit Provider Radiology Diagnostic Radiology | DX: N28.89 Other specified disorders of kidney and ureter (principal) | CPT/HCPCS: 74170 ==

== ENCOUNTER 2024-08-09 10:03 | Outpatient (REF) | payer BC, SELFPAY ==
[2024-08-09 10:26] LABS: MANUAL DIFF FLAG NO
--- OUTSIDE RECORDS SUMMARY | 2024-08-09 10:31 | XMS_ITS | Patient Health Record ---
Author Organization [facility] Address [address] [facility] [address] [place] [address] Care Team Providers Care Wood Patternmaker Apprentice Name Role Phone Colt Teran MD Primary Care Provider Emiliano Chau Unavailable [phone] Allergies Allergen (clinical drug ingredient) Drug/Non Drug Allergy documented on EMR Reaction Allergy Type Onset Date Status enflurane (uncoded) Unknown Allergy Active piperacillin / tazobactam zosyn (uncoded) Unknown Allergy Active negran (uncoded) Unknown Allergy Act jose general anesthesia (uncoded) Unknown Allergy Active ethrane (uncoded) Unknown Allergy Ac tive halothane (uncoded) Unknown Allergy Active Reason For Referral Referring Provider First Name Colt Referring Provider Last Name Jeffry Referring Provider Speciality Internal M edicine Referred Organization [facility] Referred Provider Emiliano Herrera Referred Address [address] [address], [address],[place], [place],[address], Referred Provider Specialty Gastroentero logy General Notes Dionne Ward 024 04:02:09 PM EDT > called [phone] [facility] blue referral for visit with Dr. 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 Problem 31566220 Acute gastric ul cer without hemorrhage or perforation (K25.3) Active confirmed Problem Chronic gastric ulcer with perforation (31433463) Chronic or unspecified gastric ulcer with perforation (K25.5) Active confirmed Problem Benign neoplasm of stomach (37768263) Polyp of stomach and duodenum (K31.7) Active confirmed Problem Duodenitis (62377954) Duodenitis (K29.80) Active confirmed Problem 57110734 Blood in stool (K92.1) Active confirmed Problem 581402683 Diverticulosis (K57.90) Active confirmed Problem 17701656 Heme + stool (R19.5) Active confirmed Problem 18138599 Hiatal hernia (K44.9) Active confirmed Problem Benign neoplasm of stomach (04411719) Gastric polyps (K31.7) Active confirmed Problem 506582217 Iron deficiency anemia due to chronic blood loss (D50.0) Active confirmed Problem 615050601 GERD with esophagitis (K21.0) Active confirmed Problem 23732637 UGI bleed (K92.2) Active confirmed Problem 590077277 Angiodysplasia o f colon (K55.20) Active confirmed Problem Hemorrhage of colon due to diverticulosis (819893408390491) Diverticulosis large intestine w/o perforation or abscess w/bleeding (K57.31) Active confirmed Problem Sevilla esophagus (227911146) 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) Active confirmed Problem Chronic gastritis (7977070) Chronic gastritis (K29.50) Active confirmed Problem 737847727 Anemia due to ot her cause, not classified (D64.89) Active confirmed Problem 834071396 Anemia due to ac [place] blood loss (D62) Active confirmed Problem Gastroesophageal reflux disease with esophagitis, unspecified whether hemorrhage (K21.00) Active confirmed Vital Signs Blood pressure diastolic 00 mm Hg 01/20/2024 Height 66.50 in 01/20/2024 Blood pressure systolic 00 mm Hg 01/20/2024 Weight 165 lbs 01/20/2024 BMI 26.23 kg/m2 01/20/2024 Encounters Encounter Location Date Provider Diagnosis [facility] [address] [place] [address] 01/20/2024 Emiliano Herrera Sevilla's esophagus without dysplasia K22.70 ; Hiatal hernia K44.9 ; Iron deficiency anemia due to chronic blood loss D50.0 ; UGI bleed K92.2 and Gastroesophageal reflux disease with esophagitis, unspecified whether hemorrhage K21.00 [facility] [address] [place] [address] 11/11/2023 Emiliano Herrera Assessments Encounter Date Diagnosis (ICD Code) Assessment Notes Treatment Notes Treatment Clinical Notes Section Notes 01/20/2024 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 Overall, Sulema appears quite well. She has [...] + IBC (FE) 03/11/2021 CBC w DIFF 02/20/2021 CBC w DIFF 01/30/2021 CBC w DIFF 06/28/2022 CBC w DIFF 05/29/2021 CBC w DIFF 03/11/2021 Ferritin 03/11/2021 Ferritin 01/30/2021 Ferritin 05/29/2021 Future Test Test Name Order Date UPPER GI ENDOSCOPY 08/11/2014 COLONOSCOPY 08/11/2014 UPPER GI ENDOSCOPY 01/01/2017 COLONOSCOPY 01/01/2017 UPPER GI ENDOSCOPY 07/27/2019 UPPER GI ENDOSCOPY 02/20/2021 Next Appt Details Provider Name:Emiliano Herrera , 01/19/2025 01:00:00 PM, [address] [place] [address], [address], [place], [address], Insurance Providers Payer Name Payer Address Payer Phone Subscriber Number Group Number Insured Name Patient Relationship to Insured Coverage Start Date Coverage End Date [facility] [employer] PROFESSIONAL CLAIMS [address] [place] [address] [id number] SULEMA OLIVER Self - patient is the insured Medical (General) History Medical History History ICD Code GERD with HH with long segme nt of Sevilla's esophagus diagnosed in 1994-most recent EGD was in 12/2016-no dysplasia hyperlipidemia hypertension fatty liver-neg w/u-Negative Hepatitis serologies and autoimmune studies--AST 36 and ALT 33, Iron sat 15% with an Iron of 60 in 07/2012 Denies [place],CVA,Lung disease,r enal disease--has had a heart murmur [...] -followed by --she is going to the [facility] clinic in March of 2024 for further testing including a stress test with echocardiogram and either a MRI or CT scan of the heart Surgical History Surgery Date(Month/Year) appendectomy in December of 2010 complete hysterectomy
--- OUTSIDE RECORDS SUMMARY | 2024-08-09 10:31 | XMS_ITS ---
Author Organization [facility] Address [address] [place] [address] [place] [address] Care Team Providers Care Wall Cleaner Name Role Phone Jeffry CAROLINA, Colt Primary Care Provider Emiliano Chau [phone] REASON FOR VISIT pa needed for omeprazole/faxed pa. waiting on ins Medications Medication SIG (Take, Route, Fr equency, Duration) Notes Start Date End Date Status Omeprazole 40 MG TAKE 1 CAPSULE DAILY Orally Once a day for 90 days Active Encounters Encounter Location Date Provider Diagnosis [facility] [address] [place] [address] 11/11/2023 Emiliano Herrera Plan Of Treatment Medication Medication Name Sig Start Date Stop Date Notes Omeprazole 40 MG TAKE 1 CAPSULE DAILY Orally Once a day for 90 days Next Appt Details Provider Name:Emiliano Herrera , 01/19/2025 01:00:00 PM, [address] [place] [address], Suite [facility], [place], [address], Progress Notes * TORIE SWIFTDOB:1945 (78 yo F)Acc No.[id number]:11/11/2023 Patient:?TORIE SWIFT :1945???Age:78 Y???Sex:Female Address:[address] [place] [address] * Refills? Refill Omeprazole Capsule Delayed Release, 40 MG, Orally, 90, TAKE 1 CAPSULE DAILY, Once a day, 90 days, Refills=3 * true * Date:? Generated for Valery jimenez/Walter/Nasreenitting on:?08/09/2024 10:31 AM EDT
--- OUTSIDE RECORDS SUMMARY | 2024-08-09 10:32 | XMS_ITS ---
Author Organization [facility] Address [address] [place] [id number] Care Team Providers Care Services Rep Name Role Phone Jeffry CAROLINA, Colt Primary Care Provider Emiliano Chau [phone] Allergies Allergen (clinical drug ingredient) Drug/Non Drug Allergy documented on EMR Reaction Allergy Type Onset Date Status enflurane (uncoded) Unknown Allergy Active piperacillin / tazobactam zosyn (uncoded) Unknown Allergy Active negran (uncoded) Unknown Allergy Act jose general anesthesia (uncoded) Unknown Allergy Active ethrane (uncoded) Unknown Allergy Ac tive halothane (uncoded) Unknown Allergy Active REASON FOR VISIT [...] 01/20/2024 Encounters Encounter Location Date Provider Diagnosis [facility] [address] [place] [address] 01/20/2024 Emiliano Herrera Sevilla's esophagus without dysplasia [...] K22.70) Continue the same omeprazole and Sucralfate usp. Overall, Sulema appears quite well. She has [...] Co ntinue the same omeprazole and Sucralfate manager intermediate. Next Appt Details Follow Up: 1 Year, Reason: Provider Name:Emiliano Herrera , 01/19/2025 01:00:00 PM, [address] [place] [address], [address], [phone], Progress Notes * JENIFFER SULEMADOB:1945 (79 yo F)Acc No.[id number]:01/20/2024 Progress Notes Patient:?SULEMA SWIFT Provider:?Emiliano Herrera MD :1945???Age:79 Y???Sex:Female D ate:01/20/2024 Address:[address] [place], [place] [id number] Pcp:Colt Teran MD Subjective: * Chief Complaints: [...] for cardiac testing in March at the [facility] in regard to an underlying hypertrophic cardiomyopathy. 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 ???She does not smoke or use any [...] * Treatment: * Procedure Codes:?1036F TOBAC CO NON-RPGEG3221 BP SCR NOT PRFRM REC REASON NOS [...] MD Date:? 024 Generated for Valery jimenez/Walter/Nasreenitting on:?08/09/2024 10:31 AM EDT History and Physical Notes * [...] for cardiac testing in March at the [facility] in regard to an underlying hypertrophic cardiomyopathy. [...]
[2024-08-09 10:55] LABS: Basophils Absolute Auto 0.1 X10*3/uL (0.0-0.2); Basophils Percent Auto 0.6 % (0-2); Eosinophils Absolute Auto 0.3 X10*3/uL (0.0-0.4); Hematocrit 41.2 % (37.0-47.0); Hemoglobin 13.5 g/dl (12.0-16.0); Imm Gran Abs Auto 0.03 X10*3/uL (0.00-0.03); Imm Gran Pct Auto 0.4 % (0.0-0.4); Lymphocytes Absolute Auto 1.5 X10*3/uL (1.2-4.9); Lymphocytes Percent Auto 17.6 % (20-40); Mean Corpuscular HGB Conc 32.8 g/dl (31.0-35.0); Mean Corpuscular Hemoglobin 30.9 pg (27.0-33.0); Mean Corpuscular Volume 94.3 fL (80.0-98.0); Mean Platelet Volume 10.1 fL (9.4-12.3); Monocytes Absolute Auto 0.7 X10*3/uL (0.1-1.2); Monocytes Percent Auto 8.5 % (2-11); Neutrophils Absolute Auto 5.9 x10*3/uL (2.0-8.3); Neutrophils Percent Auto 69.9 % (45-73); Platelet Count 219 X10*3/uL (160-400); Red Blood Count 4.37 X10*6/uL (4.20-5.50); Red Cell Distribution Width 12.5 % (11.0-16.0); White Blood Count 8.4 X10*3/uL (4.8-10.8)
[2024-08-09 11:15] LABS: Appearance Urine Clear; Color Urine Yellow; Glucose Urine UA Negative (Negative); Leukocyte Esterase Urine Trace (Negative); Nitrite Urine Negative (Negative); PH 6.5 (5.0-9.0); Specific Gravity - Urine 1.015 (1.005-1.025); UMIC TRIGGER UACC YES; Urine Blood Negative (Negative); Urine Ketones Negative (Negative); Urine Protein Negative (Neg-Trace)
[2024-08-09 11:21] LABS: Bacteria Urine None Seen (None Seen); Hyaline Casts Urine 0-2 /LPF (0-2); RBC Urine 0-2 /HPF (0-2); Squamous Epithelial Cell Urine 0-2 /HPF (0-2); WBC Urine 0-5 /HPF (0-5)
[2024-08-09 12:05] LABS: Alanine Aminotransferase 78 U/L (0-31); Albumin Level 3.8 g/dL (3.5-5.0); Alkaline Phosphatase 53 U/L (39-117); Anion Gap 10 (12-20); Aspartate Amino Transferase 57 U/L (5-31); Bilirubin Total 0.5 mg/dL (0.0-1.0); Blood Urea Nitrogen 14 mg/dL (9-16); Calcium 8.9 mg/dL (8.4-10.2); Carbon Dioxide 28 mmol/L (22-29); Chloride 104 mmol/L (96-108); Cholesterol 154 mg/dL (<200); Estimated Glomerular Filt Rate > 60; Glucose Fasting 80 mg/dL (60-99); HDL Cholesterol 47 mg/dL (>40); LDL Cholesterol Calculated 86 mg/dL (<100); Potassium 3.9 mmol/L (3.3-5.1); Sodium 138 mmol/L (135-145); TSH reflex Free T4 3.71 uIU/mL (0.32-4.0); Total Protein 6.5 g/dL (6.5-8.0); Triglycerides 108 mg/dL (<150)
== END 2024-08-09 10:04 | disposition home or self-care (01) ==
LOC: HO.LAB 10:03
PROVIDERS: PCP Internal Medicine; Visit Provider Internal Medicine
DX: E78.00 Pure hypercholesterolemia, unspecified (principal); D64.9 Anemia, unspecified; R30.0 Dysuria
CPT/HCPCS: 36415; 80053; 80061; 81001; 81003; 84443; 85025

== ENCOUNTER 2024-08-18 14:03 | Outpatient (AMB) | payer BC, SELFPAY ==
[2024-08-18 14:06] VITALS: BP 140/86; PULSE 64; O2SAT 98; BMI 26.0
--- NOTE | 2024-08-18 14:06 | A.OFFPC_ITS ---
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: No Accompanied by: Self / Same As Patient Allergies enflurane [ENFLURANE] Allergy (Severe, Verified 08/18/24 14:30) Per Patient Liver toxicity piperacillin [Zosyn] Allergy (Severe, Verified 08/18/24 14:30) Rash tazobactam [Zosyn] Allergy (Severe, Verified 08/18/24 14:30) Rash Medication List - Last Reconciled 08/18/24 by Colt Teran MD amiodarone 200 mg PO DAILY atorvastatin 10 mg PO DAILY cholecalciferol (vitamin D3) 25 mcg PO DAILY 90 days cyanocobalamin (vitamin B-12) (Vitamin B-12) 1,000 mcg PO DAILY 90 days diltiazem HCl CD 240 mg See Protocol PO DAILY 90 days Eliquis (apixaban) 2.5 mg PO BID 90 days NS estradiol 0.01%(0.1mg/gram) (Estrace) 2 grams vaginal DAILY 90 days ferrous sulfate 325 mg PO BID [FRONT-WHEELED WALKER As directed ; Ht = 5'6 ; Wt = 164 lbs; Rx is for INDEFINITE/PERMANENT/FOREVER/LIFETIME USE] lorazepam 0.5 mg PO BID PRN omeprazole 40 mg PO DAILY@0630 raloxifene 60 mg PO DAILY 90 days [SHOWER CHAIR As directed; Rx is for INDEFINITE/PERMANENT/FOREVER/LIFETIME USE] sucralfate (Carafate) 1 g PO QIDACHS 30 days Tobacco use date assessed: 08/18/24 Fall risk assessment: No Falls in past year Last assessed Fall Risk: 08/18/24 Dental Screening Dental Screen Date: 08/18/24 Did you have a dental visit in the last 12 months?: Yes Did you have a dental problem in the last 6 months where you did not have access to dental care?: No Was dental information given to patient?: Patient has dentist HPI 4mth f/u HPI Details Patient comes in today for her follow up visit States that she currently feels okay but has a lot of concerns and questions about some of her recent findings States that she just had an abdominal CT done about 2 weeks ago and saw that she has a mass on her right kidney and is wondering if this is indeed a kidney cancer She denies any flank pains or hematuria and states that she's had no acute urinary symptoms lately She does report experiencing on and off sensations of pins and needles still in her fingers and toes, which she states have been going on for a couple of months now She denies any headaches or dizziness but notes that she has been experiencing recurrent pain over the right side of her neck lately She denies any recent injury or trauma to her neck Denies any chest pains, no increased SOB No nausea/vomiting, no abdominal pain No change in bowel habits noted Needs her Diltiazem ER Rx refilled She had her follow up labs done last week - to discuss her results [facility] Medical History Degenerative joint disease of thoracic spine Gastrointestinal bleed Paroxysmal atrial fibrillation Afib Hypertrophic cardiomyopathy Atrial fibrillation with RVR Anemia Gastric ulcer History of blood transfusion Vitamin B12 deficiency Overweight (BMI 25.0-29.9) Primary osteoarthritis of hand Vitamin D deficiency Osteopenia Anemia Cardiac murmur Hiatal hernia Sevilla's esophagus Benign essential hypertension Pure hypercholesterolemia Surgical History History of esophagogastroduodenoscopy (EGD) History of appendectomy History of hysterectomy Family History Father Hypertension Mother Stroke Social History Household Members: Spouse Housing: House Do you presently have visiting nurse or other home services: No Alcohol intake: never Patient Tobacco Use Status: Never used Tobacco e-Cigarette/Vaping Use: Never Used Second Hand Smoke Exposure: No Advance Directives Date on File: 01/22/21 service: No Current occupational status: retired Cognitive needs: Yes (walker, cane) Hearing needs: No Vision needs: Yes (glasses) Questionnaire PHQ-9 Over the last 2 weeks, how often have you been bothered by any of the following problems? 1. Little interest or pleasure in doing things: not at all 2. Feeling down, depressed, or hopeless: not at all 3. Trouble falling or staying asleep, or sleeping too much: several days 4. Feeling tired or having little energy: several days 5. Poor appetite or overeating: not at all 6. Feeling bad about yourself - or that you are a failure or have let yourself or your family down: not at all 7. Trouble concentrating on things, such as reading the newspaper or watching television: not at all 8. Moving or speaking so slowly that other people could have noticed. Or the opposite - being so fidgety or restless that you have been moving around a lot more than usual: not at all 9. Thoughts that you would be better off or of hurting yourself in some way: not at all Total score: 2 Depression Screening Interpretation: Negative Depression Screening Done: Yes 81353 - PHQ-9 Billing: Yes Source: Developed by Drs. Emiliano Ferrari, Laura Barlow, Nico Ely and colleagues, with an educational florentino from [employer]. Thrive Questionnaire Date Thrive assessed: 08/18/24 I am a: Patient What is your living situation today?: I have a steady place to live Within the past 12 months, did the food you bought not last and you didn't have the money to get more?: Never true Within the past 12 months, did you worry whether your food would run out before you got money to buy more?: Never true Do you have trouble paying for medicines?: No Do you have trouble getting transportation to medical appointments?: No Do you have trouble paying your heating and electricity bill?: No Do you have trouble taking care of your child, family member or friend?: No Do you have trouble with day-to-day activities such as bathing, preparing meals, shopping, managing finances, etc.?: No Are you currently unemployed and looking for a job?: No Are you interested in more education?: No Please select the resources that you would like help with: None Currently or been in a relationship where the following occur: No concerns reported THRIVE Score: 0 AUDIT C Alcohol Use Questionnaire (AUDIT-C) 1. How often do you have a drink containing alcohol?: Never 3. How often do you have six or more drinks on one occasion?: Never Total Score: 0 Score Reviewed/Action Taken: Yes JULIA-7 AMB Questionnaire JULIA-7 Date JULIA - 7 assessed: 08/18/24 Feeling nervous, anxious, or on edge: 1 = Several days Not being able to stop or control worryin = Several days Worrying too much about different things: 1 = Several days Trouble relaxin = Several days Being so restless that it is hard to sit still: 0 = Not at all Becoming easily annoyed or irritable: 0 = Not at all Feeling afraid as if something awful might happen: 0 = Not at all Total JULIA-7 score (0-4 normal; 5-9 mild; 10-14 moderate; 15-21 severe): 4 Source: Developed by Drs. Emiliano Ferrari, Laura Barlow, Nico Ely and colleagues, with an educational florentino from [employer]. Review of Systems Const Denies chills, Denies fatigue, Denies fever(s) and Denies headache(s) ENT Denies dysphagia, Denies dizziness, Denies otalgia, Denies headache(s), Reports hearing loss, Reports neck pain (on and off recently, mostly on the right side), Denies odynophagia and Denies sore throat Card Denies chest pain, Denies palpitations and Denies dyspnea Resp Denies chest congestion, Denies cough and Denies dyspnea GI Denies abdominal pain, Denies constipation, Denies dysphagia, Denies heartburn, Denies diarrhea, Denies nausea, Denies odynophagia and Denies vomiting Denies difficulty voiding, Denies nocturia, Denies dysuria and Denies urinary urgency Musc Reports back pain (recurrent, over the middle of her back), Denies arthralgias and Reports neck pain (on and off recently, mostly on the right side) Skin/Breast Denies rash Neuro Denies dizziness, Denies headache(s) and Reports paresthesias (on and off in the fingers and toes bilaterally) Psych Reports anxiety Endo Denies fatigue and Denies palpitations Physical exam (Primary Care) Vital Signs: Last Vital Signs Pulse 64 08/18/24 14:06 BP 140/86 H 08/18/24 14:06 Pulse Ox 98 08/18/24 14:06 Oxygen Delivery Method Room Air 08/18/24 14:06 BMI result Body Mass Index 26.0 Tobacco/Smoking Status: Tobacco use Status Tobacco use date assessed 08/18/24 08/18/24 14:08 Patient Tobacco Use Status Never used Tobacco 08/18/24 14:08 e-Cigarette/Vaping Use Never Used 08/18/24 14:08 PHQ-9: PHQ-9 Score PHQ-9: Total score 2 08/18/24 14:08 Depression Screening Interpretation: Negative Thrive Assessment: Date of Thrive Assessment Date Thrive assessed 08/18/24 08/18/24 14:08 Currently or been in a relationship where the following occur: No concerns reported Const General: no acute distress and alert HENMT Ears: TM's normal bilaterally and EAC's normal Throat: Yes posterior oropharynx normal and Yes tonsils normal (no TP con gestion) Neck Neck: Yes supple and No lymphadenopathy Thyroid: Thyroid normal Resp Auscultation: clear to auscultation bilaterally, no rales and no wheezes Cardio Rate: regular rate Rhythm: regular rhythm Heart sounds: Murmur heart sound present systolic soft, III/ and at the apex GI Palpation (GI): Soft to palpation and nontender Auscultation: normal bowel sounds General: Yes no CVA tenderness Back/Spine/Pelvis Back: no CVA tenderness Thoracic/Lumbar Spine: thoracic spinal tenderness Skin Rashes: no rashes Extrem General: Yes no clubbing, cyanosis or edema Results Reviewed Results Reviewed: Laboratory Tests 08/09/24 08/09/24 10:20 10:24 WBC 8.4 Hgb 13.5 Hct 41.2 Plt Count 219 Sodium 138 Potassium 3.9 Creatinine 0.82 Estimated GFR > 60 Fasting Glucose 80 Calcium 8.9 AST 57 H ALT 78 H Triglycerides 108 Cholesterol 154 LDL Cholesterol, Calc 86 HDL Cholesterol 47 TSH 3.71 Ur Specific [place] 1.015 Urine Protein Negative Urine Glucose (UA) Negative Urine Blood Negative Urine Nitrite Negative Ur Leukocyte Esterase Trace H Coding Level of Care Code Est Pt Level 4 (98054) Complex EM visit Add On G2211 Diagnoses Paroxysmal atrial fibrillation I48.0 Pure hypercholesterolemia E78.00 Benign essential hypertension I10 Hypertrophic cardiomyopathy I42.2 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 K31.811 GI bleed type/associated pathology: angiodysplasia of stomach and duodenum Anemia due to acute blood loss D62 Anemia type: other cause Other causes of anemia: acute posthemorrhagic Osteopenia, unspecified location M85.80 Osteopenia location: unspecified Vitamin D deficiency E55.9 Osteoarthritis of thoracic spine, unspecified spinal osteoarthritis complication status M47.814 Spinal osteoarthritis complication: unspecified spinal osteoarthritis Vitamin B12 deficiency E53.8 Elevated TSH R79.89 Elevated LFTs R79.89 Pyuria R82.81 Renal mass, right N28.89 Overweight (BMI 25.0-29.9) E66.3 Additional Codes PHQ-9 - 68656 - PHQ-9 Billing: Yes ([id number]) Assessment & Plan Assessment & Plan (1) Paroxysmal atrial fibrillation: Code(s): I48.0 - Paroxysmal atrial fibrillation Category: Medical Plan: Patient currently remains in sinus rhythm - she was cardioverted on Amiodarone Continue Amiodarone 200 mg QD and Dilitiazem ER 240 mg QD She was on Eliquis for thromboembolism prophylaxis but this was discontinued for some time a couple of years ago due to GI bleeding; she has since gone back on Eliquis 2.5 mg BID and is currently still on it Because of her GI bleeding and anemia, she has been advised to consider getting a Watchman device to obviate her need for long-term anticoagulation but she has decided against it after giving it some thought States that Dr. Funk is considering referring her to the [facility] for further evaluation as he feels that patient's hypertrophic cardiomyopathy is getting worse recently Follow up with cardiology as scheduled (2) Pure hypercholesterolemia: Code(s): E78.00 - Pure hypercholesterolemia, unspecified Category: Medical Plan: Results of her labs done last week reviewed and discussed with patient - she is advised that her total and LDL cholesterol levels have improved slightly from previous Reinforced low cholesterol diet Continue Atorvastatin 10 mg QD Will recheck her labs and fasting lipids in 4 months for follow up (3) Benign essential hypertension: Code(s): I10 - Essential (primary) hypertension Category: Medical Plan: Reinforced low sodium diet - goal is systolic BP of at least 130 to 140 mm or less Continue Diltiazem ER 240 mg QD (was on Amlodipine 2.5 mg QD in the past but this was stopped when she was started on Diltiazem) (4) Hypertrophic cardiomyopathy: Code(s): I42.2 - Other hypertrophic cardiomyopathy Category: Medical Plan: Her last recorded echocardiogram done here at [facility] in June 2022 revealed a hyper dynamic left ventricular systolic function, with the visually estimated ejection fraction at >70%. The left atrium is severely dilated and evidence suggests grade II (moderate) diastolic dysfunction Patient has more recent echocardiograms done with Dr. Funk and we will try to obtain copies of these for documentation Dr. Funk is reportedly considering referring patient to the [facility] for further evaluation as he feels that patient's hypertrophic cardiomyopathy is getting worse recently She is currently scheduled to have echocardiogram, stress testing and cardiac MRI done at the [facility] sometime in November 2024 (5) Gastrointestinal bleed: Code(s): K92.2 - Gastrointestinal hemorrhage, unspecified Category: Medical Qualifiers: GI bleed type/associated pathology: angiodysplasia of stomach and duodenum Qualified Code(s): K31.811 - Angiodysplasia of stomach and duodenum with bleeding Plan: Resolved with no recurrence EGD done on 06/24/22 and 06/27/22 revealed (+) ulcerated gastric mass and Bx done on 06/27/22 came out benign - was a hyperplastic mucosal polyp with background mild chronic inactive inflammation with no H pylori Continue Omeprazole 40 mg QD and Carafate 1 gm QID Follow up with GI as scheduled (6) Anemia: Code(s): D64.9 - Anemia, unspecified Category: Medical Qualifiers: Anemia type: other cause Other causes of anemia: acute posthemorrhagic Qualified Code(s): D62 - Acute posthemorrhagic anemia Plan: Resolved/corrected - was mostly due to acute GI bleed; patient required blood transfusion again during her last hospital admission H/H remain normal at 13.5/41.2 on her labs done last week Will continue to monitor her CBC regularly (7) Osteopenia: Code(s): M85.80 - Other specified disorders of bone density and structure, unspecified site Category: Medical Qualifiers: Osteopenia location: unspecified Qualified Code(s): M85.80 - Other specified disorders of bone density and structure, unspecified site Plan: Continue Raloxifene 60 mg QD Repeat BMD done on 10/07/2018 showed no significant change in BMD from 04/2014 - will continue to monitor every few years Patient is encouraged again to continue to stay active and exercise regularly as tolerated (8) Vitamin D deficiency: Code(s): E55.9 - Vitamin D deficiency, unspecified Category: Medical Plan: Continue Vitamin D3 1000 units QD (9) Degenerative joint disease of thoracic spine: Code(s): M47.814 - Spondylosis without myelopathy or radiculopathy, thoracic region Category: Medical Qualifiers: Spinal osteoarthritis complication: unspecified spinal osteoarthritis Qualified Code(s): M47.814 - Spondylosis without myelopathy or radiculopathy, thoracic region Plan: Thoracic spine x-rays done last year revealed (+) advanced multilevel degenerative changes in the thoracic spine Have advised patient on some back exercises that she can do on her own to help manage her back pain Advised that if she does not experience any relief with these, we can refer her to physical therapy for further management. (10) Vitamin B12 deficiency: Code(s): E53.8 - Deficiency of other specified B group vitamins Category: Medical Plan: Continue Vitamin B12 1000 mcg 1 tablet 2 to 3 times a week She was previously advised to lower her Vitamin B12 1000 mcg tablets intake as her level was very high - this has improved back to normal since then (11) Elevated TSH: Code(s): R79.89 - Other specified abnormal findings of blood chemistry Category: Medical Plan: Her TSH remains normal on her recent labs; her free T4 remains normal Patient is clinically euthyroid at present Will recheck her TFTs in 4 months for follow up (12) Elevated LFTs: Code(s): R79.89 - Other specified abnormal findings of blood chemistry Category: Medical Plan: Patient's LFTs are still slightly elevated and are mostly unchanged from previous on her recent labs Abdominal US done in April 2024 revealed (+) mild hepatic steatosis and (+) indeterminate mass in the right kidney measuring 2 cm. Further characterization with dedicated renal CT or MRI is suggested. Will continue to monitor her LFTs regularly (13) Pyuria: Code(s): R82.81 - Pyuria Category: Medical Plan: Patient also continues to present with (+) pyuria on her routine urinalysis She denies any acute urinary symptoms Previous attempts at empiric Abx Tx have not resulted in any significant or permanent resolution She was sent for renal and bladder US for further evaluation, which revealed the presence of the right renal mass; bladder US was normal (14) Renal mass, right: Code(s): N28.89 - Other specified disorders of kidney and ureter Category: Medical Plan: Renal US done in April 2024 revealed (+) indeterminate mass in the right kidney measuring 2 cm - further characterization with dedicated renal CT or MRI is suggested Patient underwent abdominal CT a couple of weeks ago, which confirmed a heterogenous circumscribed lesion in the midpole of the right kidney - renal cell carcinoma is not excluded and recommend tissue diagnosis Patient is advised to follow up with urology as scheduled for renal Bx JUHI (15) Overweight (BMI 25.0-29.9): Code(s): E66.3 - Overweight Category: Medical Plan: Reinforced diet/exercise as tolerated/lose weight Plan Follow up in 4 months Orders: Orders Complete Blood Count Auto Diff 4 Months D64.9 - Anemia, unspecified TSH reflex Free T4 4 Months E78.00 - Pure hypercholesterolemia, unspecified Comprehensive [place]. Panel Fast 4 Months E78.00 - Pure hypercholesterolemia, unspecified Lipid Panel 4 Months E78.00 - Pure hypercholesterolemia, unspecified UA CC w/rflx Micro + Cult 4 Months R30.0 - Dysuria Vitamin D 25-OH Total 4 Months E55.9 - Vitamin D deficiency, unspecified Vitamin B12 and Folate 4 Months E53.8 - Deficiency of other specified B group vitamins Medications: Refilled 2 diltiazem HCl CD 240 mg See Protocol PO DAILY 90 days 90 caps 1RF
--- OUTSIDE RECORDS SUMMARY | 2024-08-18 14:58 | XMS_ITS | Patient Health Record ---
Author Organization [facility] Address [address] [place] [address] Care Team Providers Care Director Information Security Name Role Phone Colt Teran MD Primary Care Provider Emiliano Chau Unavailable [phone] Allergies Allergen (clinical drug ingredient) Drug/Non Drug [...] Provider Speciality Internal M edicine Referred Organization [facility] Referred Provider Emiliano Herrera Referred Address [address] [place] [address], [address],[place], [place],[address], Referred Provider Specialty Gastroentero logy General Notes Dionne Ward 024 04:02:09 PM EDT > called [phone] to request an [facility] referral for visit with Dr. Herrera [...] Problem Status W/U Status Risk Notes Problem 254026962 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 Problem 868708029 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 Problem 54427689 Acute gastric ul cer without hemorrhage or perforation (K25.3) Active confirmed Problem Chronic gastric ulcer with perforation (06419262) Chronic or unspecified gastric ulcer with perforation (K25.5) Active confirmed Problem Benign neoplasm of stomach (76829231) Polyp of stomach and duodenum (K31.7) Active confirmed Problem Duodenitis (59504319) Duodenitis (K29.80) Active confirmed Problem 02199559 Blood in stool (K92.1) Active confirmed Problem 285374035 Diverticulosis (K57.90) Active confirmed Problem 89472700 Heme + stool (R19.5) Active confirmed Problem 10945288 Hiatal hernia (K44.9) Active confirmed Problem Benign neoplasm of stomach (54195464) Gastric polyps (K31.7) Active confirmed Problem 655729843 Iron deficiency anemia due to chronic blood loss (D50.0) Active confirmed Problem 239643609 GERD with esophagitis (K21.0) Active confirmed Problem 90201491 UGI bleed (K92.2) Active confirmed Problem 325550873 Angiodysplasia o f colon (K55.20) Active confirmed Problem Hemorrhage of colon due to diverticulosis (804432192850601) Diverticulosis large intestine w/o perforation or abscess w/bleeding (K57.31) Active confirmed Problem Sevilla esophagus (971811072) 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) Active confirmed Problem Chronic gastritis (3122227) Chronic gastritis (K29.50) Active confirmed Problem 096780120 Anemia due to ot her cause, not classified (D64.89) Active confirmed Problem 830632581 Anemia due to ac ezequiel blood loss (D62) Active confirmed Problem Gastroesophageal reflux disease with esophagitis, unspecified whether hemorrhage (K21.00) Active confirmed Vital Signs Blood pressure diastolic 00 mm Hg 01/20/2024 Height 66.50 in 01/20/2024 Blood pressure systolic 00 mm Hg 01/20/2024 Weight 165 lbs 01/20/2024 BMI 26.23 kg/m2 01/20/2024 Encounters Encounter Location Date Provider Diagnosis [facility] [address] [place] [phone] 01/20/2024 Emiliano Herrera Sevilla's esophagus without dysplasia K22.70 ; Hiatal hernia K44.9 ; Iron deficiency anemia due to chronic blood loss D50.0 ; UGI bleed K92.2 and Gastroesophageal reflux disease with esophagitis, unspecified whether hemorrhage K21.00 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 Overall, Sulema appears quite well. She has [...] DIFF 06/28/2022 CBC w DIFF 05/29/2021 Ferritin 03/11/2021 Ferritin 01/30/2021 Ferritin 05/29/2021 Future Test Test Name Order Date UPPER GI ENDOSCOPY 08/11/2014 COLONOSCOPY 08/11/2014 UPPER GI ENDOSCOPY 01/01/2017 COLONOSCOPY 01/01/2017 UPPER GI ENDOSCOPY 07/27/2019 UPPER GI ENDOSCOPY 02/20/2021 Next Appt Details Provider Name:Emiliano Herrera , 01/19/2025 01:00:00 PM, [address] [place] [address], [address], [place], [address], Insurance Providers Payer Name Payer Address Payer Phone Subscriber Number Group Number Insured Name Patient Relationship to Insured Coverage Start Date Coverage End Date [facility] [employer] PROF[employer]AL CLAIMS [address] [place] [address] [id number] SULEMA OLIVER Self - patient is the insured Medical (General) History Medical History History ICD Code GERD with HH with long segme nt of Sevilla's esophagus diagnosed in 1994-most recent EGD was in 12/2016-no dysplasia hyperlipidemia hypertension fatty liver-neg w/u-Negative Hepatitis serologies and autoimmune studies--AST 36 and ALT 33, Iron sat 15% with an Iron of 60 in 07/2012 Denies [place],CVA,Lung disease,r enal disease--has had a heart murmur [...] by --she is going to the [facility] clinic in March of 2024 for further testing including a stress test with echocardiogram and either a MRI or CT scan of the heart Surgical History Surgery Date(Month/Year) appendectomy in December of 2010 complete hysterectomy
== END 2024-08-18 14:55 | disposition home or self-care (01) ==
LOC: HO.HMCH 14:04
PROVIDERS: PCP Internal Medicine; Visit Provider Internal Medicine
DX: I48.0 Paroxysmal atrial fibrillation (principal); E78.00 Pure hypercholesterolemia, unspecified; I10 Essential (primary) hypertension; I42.2 Other hypertrophic cardiomyopathy; K31.811 Angiodysplasia of stomach and duodenum with bleeding; D62 Acute posthemorrhagic anemia; M85.80 Other specified disorders of bone density and structure, unspecified site; E55.9 Vitamin D deficiency, unspecified; M47.814 Spondylosis without myelopathy or radiculopathy, thoracic region; E53.8 Deficiency of other specified B group vitamins; R79.89 Other specified abnormal findings of blood chemistry; R82.81 Pyuria; N28.89 Other specified disorders of kidney and ureter; E66.3 Overweight

== ENCOUNTER → 2024-08-18 14:03 | Outpatient (BNVA) | payer BC, SELFPAY | PROVIDERS: PCP Internal Medicine; Visit Provider Internal Medicine | DX: I48.0 Paroxysmal atrial fibrillation (principal); E78.00 Pure hypercholesterolemia, unspecified; I10 Essential (primary) hypertension; I42.2 Other hypertrophic cardiomyopathy; K31.811 Angiodysplasia of stomach and duodenum with bleeding; D62 Acute posthemorrhagic anemia; M85.80 Other specified disorders of bone density and structure, unspecified site; E55.9 Vitamin D deficiency, unspecified; M47.814 Spondylosis without myelopathy or radiculopathy, thoracic region; E53.8 Deficiency of other specified B group vitamins; R94.6 Abnormal results of thyroid function studies; R79.89 Other specified abnormal findings of blood chemistry; R82.81 Pyuria; N28.89 Other specified disorders of kidney and ureter; E66.3 Overweight; Z68.26 Body mass index [BMI] 26.0-26.9, adult; Z79.899 Other long term (current) drug therapy | CPT/HCPCS: 96127 ==

== ENCOUNTER 2024-08-19 15:27 | Outpatient (AMB) | payer BC, SELFPAY ==
--- OUTSIDE RECORDS SUMMARY | 2024-08-19 15:29 | XMS_ITS | Patient Health Record ---
Author Organization [facility] Address [address] [place] [address] Care Team Providers Care Space Control Agent Name Role Phone Colt Teran MD Primary Care Provider Emiliano Chau Unavailable [phone] Allergies Allergen (clinical drug ingredient) Drug/Non Drug [...] Provider Speciality Internal M edicine Referred Organization [facility] Referred Provider Emiliano Herrera Referred Address [address] [place] [address], [address],[place], [place],[address], Referred Provider Specialty Gastroentero logy General Notes Dionne Ward 024 04:02:09 PM EDT > called [phone] to request an [facility] referral for visit with [...] Problem Status W/U Status Risk Notes Problem 417794632 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 Problem 691878660 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 Problem 82597424 Acute gastric ul cer without hemorrhage or perforation (K25.3) Active confirmed Problem Chronic gastric ulcer with perforation (92472559) Chronic or unspecified gastric ulcer with perforation (K25.5) Active confirmed Problem Benign neoplasm of stomach (02493697) Polyp of stomach and duodenum (K31.7) Active confirmed Problem Duodenitis (96397035) Duodenitis (K29.80) Active confirmed Problem 06530955 Blood in stool (K92.1) Active confirmed Problem 314104248 Diverticulosis (K57.90) Active confirmed Problem 52063370 Heme + stool (R19.5) Active confirmed Problem 46394526 Hiatal hernia (K44.9) Active confirmed Problem Benign neoplasm of stomach (68501038) Gastric polyps (K31.7) Active confirmed Problem 176879518 Iron deficiency anemia due to chronic blood loss (D50.0) Active confirmed Problem 206610875 GERD with esophagitis (K21.0) Active confirmed Problem 94904780 UGI bleed (K92.2) Active confirmed Problem 432476165 Angiodysplasia o f colon (K55.20) Active confirmed Problem Hemorrhage of colon due to diverticulosis (347867774084621) Diverticulosis large intestine w/o perforation or abscess w/bleeding (K57.31) Active confirmed Problem Sevilla esophagus (039637465) 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) Active confirmed Problem Chronic gastritis (2701044) Chronic gastritis (K29.50) Active confirmed Problem 310767069 Anemia due to ot her cause, not classified (D64.89) Active confirmed Problem 990290118 Anemia due to ac ezequiel blood loss (D62) Active confirmed Problem Gastroesophageal reflux disease with esophagitis, unspecified whether hemorrhage (K21.00) Active confirmed Vital Signs Blood pressure diastolic 00 mm Hg 01/20/2024 Height 66.50 in 01/20/2024 Blood pressure systolic 00 mm Hg 01/20/2024 Weight 165 lbs 01/20/2024 BMI 26.23 kg/m2 01/20/2024 Encounters Encounter Location Date Provider Diagnosis [facility] [address] [place] [phone] 01/20/2024 Emiliano Herrera Sevilla's esophagus without dysplasia K22.70 ; Hiatal hernia K44.9 ; Iron deficiency anemia due to chronic blood loss D50.0 ; UGI bleed K92.2 and Gastroesophageal reflux disease with esophagitis, unspecified whether hemorrhage K21.00 [facility] [address] [place] [phone] 11/11/2023 Emiliano Herrera Assessments Encounter Date Diagnosis (ICD Code) Assessment Notes Treatment Notes Treatment Clinical Notes Section Notes 01/20/2024 Sevilla's esophagus without dysplasia (ICD-10 - K22.70) Continue the same omeprazole and Sucralfate manager intermediate. Overall, Sulema appears quite well. She has [...] Provider Name:Emiliano Herrera , 01/19/2025 01:00:00 PM, [address] [place] [address], [address], [place], [address], Insurance Providers Payer Name Payer Address Payer Phone Subscriber Number Group Number Insured Name Patient Relationship to Insured Coverage Start Date Coverage End Date [facility] [employer] PROFESSIONAL CLAIMS [address] [place] [address] [id number] SULEMA OLIVER Self - patient is the insured Medical (General) History Medical History History ICD Code GERD with HH with long segme nt of Sevilla's esophagus diagnosed in 1994-most recent EGD was in 12/2016-no dysplasia hyperlipidemia hypertension fatty liver-neg w/u-Negative Hepatitis serologies and autoimmune studies--AST 36 and ALT 33, Iron sat 15% with an Iron of 60 in 07/2012 Denies [place],CVA,Lung disease,r enal disease--has had a heart murmur [...] -followed by --she is going to the [facility] clinic in March of 2024 for further testing including a stress test with echocardiogram and either a MRI or CT scan of the heart Surgical History Surgery Date(Month/Year) appendectomy in December of 2010 complete hysterectomy
--- NOTE | 2024-08-19 16:10 | MHC.OFFVIS ---
Intake Visit Reasons: 1m/ CT results Intake Note: Patient presents today for follow up on: Renal Mass and CT Scan Results Urology Medication: none Blood Thinner:Apixaban Antibiotic Allergies:None Airfield Engineer Officer Required: No Accompanied by: Self / Same As Patient Allergies enflurane [ENFLURANE] Allergy (Severe, Verified 08/19/24 16:31) Per Patient Liver toxicity piperacillin [Zosyn] Allergy (Severe, Verified 08/19/24 16:31) Rash tazobactam [Zosyn] Allergy (Severe, Verified 08/19/24 16:31) Rash Medication List - Last Reconciled 08/19/24 by RADU Ferguson amiodarone 200 mg PO DAILY atorvastatin 10 mg PO DAILY cholecalciferol (vitamin D3) 25 mcg PO DAILY 90 days cyanocobalamin (vitamin B-12) (Vitamin B-12) 1,000 mcg PO DAILY 90 days diltiazem HCl CD 240 mg See Protocol PO DAILY 90 days Eliquis (apixaban) 2.5 mg PO BID 90 days NS estradiol 0.01%(0.1mg/gram) (Estrace) 2 grams vaginal DAILY 90 days ferrous sulfate 325 mg PO BID [FRONT-WHEELED WALKER As directed ; Ht = 5'6 ; Wt = 164 lbs; Rx is for INDEFINITE/PERMANENT/FOREVER/LIFETIME USE] lorazepam 0.5 mg PO BID PRN omeprazole 40 mg PO DAILY@0630 raloxifene 60 mg PO DAILY 90 days [SHOWER CHAIR As directed; Rx is for INDEFINITE/PERMANENT/FOREVER/LIFETIME USE] sucralfate (Carafate) 1 g PO QIDACHS 30 days HPI Comments Details: Sulema is a very pleasant 79-year-old female patient of Dr. Teran who was accompanied by her significant other at today's office visit. She has a past medical history of recurrent urinary tract infections, degenerative disc disease of thoracic spine, paroxysmal AFib, hypertrophic cardiomyopathy, anemia, gastric ulcer, vitamin-D deficiency, osteoarthritis, hiatal hernia, cardiac murmur, anemia, osteopenia, Sevilla's esophagus, hypertension, and hypercholesteremia. She presents to the office today for follow-up. Of note, patient was seen approximately 3 weeks ago as a new patient for recurrent urinary tract infections as well as a renal mass at which time a CT was ordered and not yet completed Therefore scheduled follow-up was recommended to review imaging once completed. These results were reviewed and communicated with the patient and her today 08/15 there is a 2 cm heterogeneous lesion in the mid pole of the right kidney only clearly identifiable on the postcontrast images. A renal cell carcinoma is not excluded. Tissue diagnosis is recommended per radiology report. In office urinalysis results reviewed with the patient today within normal limits. We did discuss findings and further interventions to include surveillance monitoring verses right renal biopsy and cryotherapy. Risks and benefits of these interventions were discussed. All questions were answered. In review of patient's chart it appears urine culture 04/17 E coli and 07/16 mixed bacterial tani characteristics of urogenital contamination. She reports typical UTI like symptoms are dysuria and urinary urgency. She currently denies any UTI like symptoms. She denies incontinence, nocturia, visible/gross hematuria, dysuria, foul smelling urine, changes to urinary stream, flank pain, fever, and or chills. She is happy with her current voiding parameters. [facility] Medical History Degenerative joint disease of thoracic spine Gastrointestinal bleed Paroxysmal atrial fibrillation Afib Hypertrophic cardiomyopathy Atrial fibrillation with RVR Anemia Gastric ulcer History of blood transfusion Vitamin B12 deficiency Overweight (BMI 25.0-29.9) Primary osteoarthritis of hand Vitamin D deficiency Osteopenia Anemia Cardiac murmur Hiatal hernia Sevilla's esophagus Benign essential hypertension Pure hypercholesterolemia Surgical History History of esophagogastroduodenoscopy (EGD) History of appendectomy History of hysterectomy Family History Father Hypertension Mother Stroke Social History Household Members: Spouse Housing: House Do you presently have visiting nurse or other home services: No Alcohol intake: never Patient Tobacco Use Status: Never used Tobacco e-Cigarette/Vaping Use: Never Used Second Hand Smoke Exposure: No Advance Directives Date on File: 01/22/21 service: No Current occupational status: retired Cognitive needs: Yes (walker, cane) Hearing needs: No Vision needs: Yes (glasses) Review of Systems Eyes Reports no additional complaints ENT Reports no additional complaints Card Reports as per [facility] Resp Reports no additional complaints GI Reports as per [facility] Reports as per [facility] Musc Reports as per [facility] Neuro Reports no additional complaints Psych Reports no additional complaints Endo Reports as per [facility] Basil/Lymph Reports as per [facility] Physical Exam Const General: cooperative, healthy appearing, comfortable, no acute distress, well developed, alert and awake Orientation/consciousness: patient oriented x3 Limitations: no limitations HEENT Head: Yes normal to inspection, Yes normocephalic and Yes atraumatic Ears: hearing grossly normal bilaterally Eyes General: appearance normal, both eyes and all related structures Neck Neck: Yes normal visual inspection and Yes trachea midline Chest Chest palpation & inspection: normal inspection of the chest Resp Effort & Inspection: normal respiratory effort and able to speak in complete sentences Cardio Rate: regular rate GI Inspection: Yes normal to inspection General: Yes no CVA tenderness Back/Spine/Pelvis Back: no CVA tenderness Skin General skin exam: no rashes or lesions noted Neuro General: patient oriented x3 Extrem General: Yes normal to inspection Psych Appearance: grossly normal and well kempt Mental Status: mental status grossly normal Speech and movement: Normal speech and movement present and Clear speech present Affect: normal affect Attitude: cooperative Thought process: Normal thought process present Thought content: Normal thought content present Insight: Fair insight present (Psych) Judgement: Fair judgement present (Psych) Results AMB Urinalysis, Automated UA Leukoctes 0 Mookie/uL Last Edit by [employer] on 08/19/24 16:42 UA Nitrite Last Edit by [employer] on 08/19/24 16:42 UA Urobilinogen 0.2 mg/dL Last Edit by [employer] on 08/19/24 16:42 UA Protein 15 mg/dL Last Edit by [employer] on 08/19/24 16:42 UA pH 6.0 Last Edit by [employer] on 08/19/24 16:42 UA Blood 25 Orion/uL Last Edit by [employer] on 08/19/24 16:42 UA Specific [place] 1.020 Last Edit by [employer] on 08/19/24 16:42 UA Ketone Last Edit by [employer] on 08/19/24 16:42 UA Bilirubin 2 mg/dL Last Edit by [employer] on 08/19/24 16:42 UA Glucose 0 mg/dL Last Edit by Jackelyn Stafford on 08/19/24 16:42 Results Reviewed Results Reviewed: Laboratory Last Values Urine pH (Auto) 6.0 08/19/24 16:24 Specific [place] (Auto) 1.020 08/19/24 16:24 Urine Protein (Auto) 15 mg/dL 08/19/24 16:24 Glucose (UA)(Auto) 0 mg/dL 08/19/24 16:24 Urine Blood (Auto) 25 Orion/uL 08/19/24 16:24 Urine Bilirubin (Auto) 2 mg/dL 08/19/24 16:24 Urine Urobilinogen (Auto) 0.2 mg/dL 08/19/24 16:24 Leukocyte Esterase (Auto) 0 Mookie/uL 08/19/24 16:24 Date of Service: 07/27/24 Procedure(s): CT abdomen wo/w IV con Findings: No consolidation or effusion. There is a 2 cm heterogeneous lesion in the midpole of the right kidney only clearly identifiable on the post contrasted images. The rest of the solid organs are unremarkable. No bowel obstruction, pneumoperitoneum, or pneumatosis. No acute fracture. IMPRESSION: Heterogeneous circumscribed lesion in the midpole of the right kidney measures soft tissue density. A renal cell carcinoma is not excluded. Tissue diagnosis is recommended. Assessment & Plan Assessment & Plan (1) Renal mass, right: Code(s): N28.89 - Other specified disorders of kidney and ureter Category: Medical (2) Recurrent urinary tract infection: Code(s): N39.0 - Urinary tract infection, site not specified Category: Medical Plan In office urinalysis results reviewed with the patient today; as noted above. Recent CT results reviewed with the patient today; as noted above. We discussed further interventions to include surveillance monitoring verses right renal biopsy with cryo; risks and benefits were discussed. All questions were answered. She currently denies any bothersome urinary issues. She reports be happy current voiding parameters. Continue Estrace cream. Will arrange for consultation with IR provider. Follow-up status post procedure; or sooner with any issues, concerns, and or questions. Orders: Orders AMB Urinalysis Automated Today Z13.9 - Encounter for screening, unspecified CT Guided Cryo Ablation Renal Today N28.89 - Other specified disorders of kidney and ureter Patient Instructions: The patient had an opportunity to ask questions regarding the treatment plan. All questions were answered. Physical exam, labs, and imaging were discussed and reviewed in detail. As well as risks, benefits, and discussion of treatment choices. No major barriers to understanding were identified. The patient expressed understanding and agreement with the above treatment plan. The patient was made aware they should contact our office by phone for worsening of their current condition, the appearance of new symptoms, or with any questions or concerns. Compliance is encouraged with any medications and follow up testing that is ordered. It is a privilege to be allowed the opportunity to participate in? your urological care.? Again, if you have any questions or concerns If you have any questions or concerns please do not hesitate to contact me. The office is [phone]. This note is constructed using voice recognition software. While every effort has been made to ensure accuracy heel shaper errors may have been included. Yours sincerely, DAVID Ferguson Coding Level of Care Code Est Pt Level 3 (96005) Complex EM visit Add On G2211 Diagnoses Renal mass, right N28.89 Recurrent urinary tract infection N39.0
== END 2024-08-19 16:31 | disposition home or self-care (01) ==
LOC: HO.HUSH 15:28
PROVIDERS: PCP Internal Medicine; Visit Provider Nurse Practitioner Family
DX: N28.89 Other specified disorders of kidney and ureter (principal); N39.0 Urinary tract infection, site not specified; Z13.9 Encounter for screening, unspecified
CPT/HCPCS: 99213

== ENCOUNTER → 2024-08-19 15:27 | Outpatient (BNVA) | payer BC, SELFPAY | PROVIDERS: PCP Internal Medicine; Visit Provider Nurse Practitioner Family | DX: N28.89 Other specified disorders of kidney and ureter (principal); N39.0 Urinary tract infection, site not specified; Z13.9 Encounter for screening, unspecified | CPT/HCPCS: 81003 ==

== ENCOUNTER 2024-11-03 13:28 | Day surgery (SDC) | payer BC, SELFPAY ==
--- OUTSIDE RECORDS SUMMARY | 2024-10-29 11:21 | XMS_ITS | Patient Health Record ---
Author Organization [facility] Address [address] [place] [address] Care Team Providers Care Wing Commander Name Role Phone Colt Teran MD Primary Care Provider Emiliano Chau Unavailable [phone] Allergies Allergen (clinical drug ingredient) Drug/Non Drug [...] Provider Speciality Internal M edicine Referred Organization [facility] Referred Provider Emiliano Herrera Referred Address [address] [place] [address], [address],[place], [place],[address], Referred Provider Specialty Gastroentero logy General Notes Dionne Ward 024 04:02:09 PM EDT > called [phone] to request an [facility] [place] [facility] for visit [...] Problem Status W/U Status Risk Notes Problem 116873144 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 Problem 356871652 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 Problem 36213561 Acute gastric ul cer without hemorrhage or perforation (K25.3) Active confirmed Problem Chronic gastric ulcer with perforation (84705768) Chronic or unspecified gastric ulcer with perforation (K25.5) Active confirmed Problem Benign neoplasm of stomach (68745688) Polyp of stomach and duodenum (K31.7) Active confirmed Problem Duodenitis (53635488) Duodenitis (K29.80) Active confirmed Problem 89416378 Blood in stool (K92.1) Active confirmed Problem 362976127 Diverticulosis (K57.90) Active confirmed Problem 87089644 Heme + stool (R19.5) Active confirmed Problem 27667152 Hiatal hernia (K44.9) Active confirmed Problem Benign neoplasm of stomach (99418944) Gastric polyps (K31.7) Active confirmed Problem 876144070 Iron deficiency anemia due to chronic blood loss (D50.0) Active confirmed Problem 715559907 GERD with esophagitis (K21.0) Active confirmed Problem 93970123 UGI bleed (K92.2) Active confirmed Problem 987452063 Angiodysplasia o f colon (K55.20) Active confirmed Problem Hemorrhage of colon due to diverticulosis (373532110785590) Diverticulosis large intestine w/o perforation or abscess w/bleeding (K57.31) Active confirmed Problem Sevilla esophagus (783580217) 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) Active confirmed Problem Chronic gastritis (2235510) Chronic gastritis (K29.50) Active confirmed Problem 343582048 Anemia due to ot her cause, not classified (D64.89) Active confirmed Problem 934548036 Anemia due to ac [place] blood loss (D62) Active confirmed Problem Gastroesophageal reflux disease with esophagitis, unspecified whether hemorrhage (K21.00) Active confirmed Vital Signs Blood pressure diastolic 00 mm Hg 01/20/2024 Height 66.50 in 01/20/2024 Blood pressure systolic 00 mm Hg 01/20/2024 Weight 165 lbs 01/20/2024 BMI 26.23 kg/m2 01/20/2024 Encounters Encounter Location Date Provider Diagnosis [facility] [address] [place] [address] 01/20/2024 Emiliano Herrera Sevilla's esophagus without dysplasia K22.70 ; Hiatal hernia K44.9 ; Iron deficiency anemia due to chronic blood loss D50.0 ; UGI bleed K92.2 and Gastroesophageal reflux disease with esophagitis, unspecified whether hemorrhage K21.00 [facility] [address] [place] [address] 11/11/2023 Emiliano Herrera Assessments Encounter Date Diagnosis (ICD Code) Assessment Notes Treatment Notes Treatment Clinical Notes Section Notes 01/20/2024 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 Overall, Sulema appears quite well. She has [...] Provider Name:Emiliano Herrera , 01/19/2025 01:00:00 PM, [address] [place] [address], [address], [place], [address], Insurance Providers Payer Name Payer Address Payer Phone Subscriber Number Group Number Insured Name Patient Relationship to Insured Coverage Start Date Coverage End Date [facility] [employer] PROFESSIONAL CLAIMS [address] [place] [address] [id number] SULEMA OLIVER Self - patient is the insured Medical (General) History Medical History History ICD Code GERD with HH with long segme nt of Sevilla's esophagus diagnosed in 1994-most recent EGD was in 12/2016-no dysplasia hyperlipidemia hypertension fatty liver-neg w/u-Negative Hepatitis serologies and autoimmune studies--AST 36 and ALT 33, Iron sat 15% with an Iron of 60 in 07/2012 Denies ID,CVA,Lung disease,r enal disease--has had a heart murmur [...] 2003 Sevilla's esophagus-EGD 12/23 017 with the Sevilal's and biopsies neg for dysplasia; upper endoscopy [...] -followed by --she is going to the [facility] clinic in March of 2024 for further testing including a stress test with echocardiogram and either a MRI or CT scan of the heart Surgical History Surgery Date(Month/Year) appendectomy in December of 2010 complete hysterectomy
[2024-11-03 14:25] VITALS: BMI 24.5
[2024-11-03 14:36] LABS: INTERNATIONAL NORM RATIO 1.1 (0.9-1.1); Prothrombin Time 12.2 SEC (10.9-12.4)
[2024-11-03 14:44] VITALS: BP 187/67; PULSE 66; RESP 16; TEMP 37; O2SAT 96
--- NOTE | 2024-11-03 15:15 | PC.NURSE ---
patient moved from pacu bed 14. report given to maria ines
--- NOTE | 2024-11-03 16:32 | P.RADPN_ITS ---
RADIOLOGY Narrative Narrative: This is a pleasant 83 year old female with incidental right renal mass referred for percutaneous ablation. We had initially planned for microwave ablation based on ultrasound images and a report from a CT scan (due to a PACS upgrade we were unable to see the images at that time.) Patient arrived for the procedure today and we were able to have the CT images transferred to the new PACS. Upon further review we determined that Cryoablation would be a better option than microwave a blation in this case on account of the mass encroaching upon the collecting system. I had a very long conversation with the patient. We discussed her diagnosis of the renal mass and her management options. I explained that if she were to opt for intervention, cryoablation would be the preffered option as above but that unfortunately we were not equipped to perform it today. I was apologetic of course. The patient was very understanding. She appreciated the meeting and conversation. She would like to proceed with a cryoablation and was happy to return another day for the procedure. Patient will be rescheduled for the ablation procedure in the near future.
--- NOTE | 2024-11-16 16:37 | PC.NURSE ---
Holding Eliquis for upcoming procedure. Called pt to tell her the instructions from Dr Bruce to hold Eliquis x 2 day (4 doses), LD will be Sat Nov 20 Pm dose. Pt understood instructions and wrote this down in her calendar. Also I gave her the pre-procedure instructions (NPO after midnight with sips of water no Eliquis LD sat Pm dose (11/20/24). She will need someone to drive her to and from hospital. Pt understood the pre-procedure instructions. No other questions/concerns from pt.
== END 2024-11-03 16:23 | disposition home or self-care (01) ==
PROVIDERS: Radiology Diagnostic Radiology; PCP Internal Medicine; Visit Provider Nurse Practitioner Family
DX: N28.89 Other specified disorders of kidney and ureter (principal); Z53.8 Procedure and treatment not carried out for other reasons; N39.0 Urinary tract infection, site not specified; I48.0 Paroxysmal atrial fibrillation; I42.2 Other hypertrophic cardiomyopathy; I10 Essential (primary) hypertension; E78.00 Pure hypercholesterolemia, unspecified; D64.9 Anemia, unspecified; Z79.01 Long term (current) use of anticoagulants; Z88.1 Allergy status to other antibiotic agents; Z88.8 Allergy status to other drugs, medicaments and biological substances; Z79.899 Other long term (current) drug therapy
CPT/HCPCS: 36415; 85610; J0690; J2003; J2250; J3010

== ENCOUNTER 2024-11-16 12:43 | Outpatient (REF) | payer BC, SELFPAY ==
--- OUTSIDE RECORDS SUMMARY | 2024-11-16 13:24 | XMS_ITS | Patient Health Record ---
Author Organization [facility] Address [address] [place] [address] Care Team Providers Care Palliative Care Nurse Practitioner Name Role Phone Colt Teran MD Primary Care Provider Emiliano Chau Unavailable [phone] Allergies Allergen (clinical drug ingredient) Drug/Non Drug [...] Provider Speciality Internal M edicine Referred Organization [facility] Referred Provider Emiliano Herrera Referred Address [address] [place] [address], [address],[place],[address], Referred Provider Specialty Gastroentero logy General Notes Dionne Ward 024 04:02:09 PM EDT > called [phone] to request an [facility] referral for [...] Problem Status W/U Status Risk Notes Problem 084794198 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 Problem 087935787 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 Problem 26075360 Acute gastric ul cer without hemorrhage or perforation (K25.3) Active confirmed Problem Chronic gastric ulcer with perforation (64350735) Chronic or unspecified gastric ulcer with perforation (K25.5) Active confirmed Problem Benign neoplasm of stomach (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) Polyp of stomach and duodenum (K31.7) Active confirmed Problem Duodenitis (86839523) Duodenitis (K29.80) Active confirmed Problem 62236189 Blood in stool (K92.1) Active confirmed Problem 577802723 Diverticulosis (K57.90) Active confirmed Problem 49859708 Heme + stool (R19.5) Active confirmed Problem 56105357 Hiatal hernia (K44.9) Active confirmed Problem Benign neoplasm of stomach (90725284) Gastric polyps (K31.7) Active confirmed Problem 951393470 Iron deficiency anemia due to chronic blood loss (D50.0) Active confirmed Problem 645545976 GERD with esophagitis (K21.0) Active confirmed Problem 14517660 UGI bleed (K92.2) Active confirmed Problem 341580431 Angiodysplasia o f colon (K55.20) Active confirmed Problem Hemorrhage of colon due to diverticulosis (707184390822932) Diverticulosis large intestine w/o perforation or abscess w/bleeding (K57.31) Active confirmed Problem Sevilla esophagus (388694485) 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) Active confirmed Problem Chronic gastritis (5071698) Chronic gastritis (K29.50) Active confirmed Problem 082518910 Anemia due to ot her cause, not classified (D64.89) Active confirmed Problem 298166040 Anemia due to ac [place] blood loss (D62) Active confirmed Problem Gastroesophageal reflux disease with esophagitis, unspecified whether hemorrhage (K21.00) Active confirmed Vital Signs Blood pressure diastolic 00 mm Hg 01/20/2024 Height 66.50 in 01/20/2024 Blood pressure systolic 00 mm Hg 01/20/2024 Weight 165 lbs 01/20/2024 BMI 26.23 kg/m2 01/20/2024 Encounters Encounter Location Date Provider Diagnosis [facility] [address] [place] [address] 01/20/2024 Emiliano Herrera Sevilla's esophagus without dysplasia [...] K22.70) 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 Overall, Sulema appears quite well. She has [...] Provider Name:Emiliano Herrera , 01/19/2025 01:00:00 PM, [address] [place] [address], [place] [address], [place], [address], Insurance Providers Payer Name Payer Address Payer Phone Subscriber Number Group Number Insured Name Patient Relationship to Insured Coverage Start Date Coverage End Date [facility] PROFESSIONAL CLAIMS [address] [place] [address] [id number] 500 SULEMA SWIFT Self - patient is the insured Medical (General) History Medical History History ICD Code GERD with HH with long segme nt of Sevilla's esophagus diagnosed in 1994-most recent EGD was in 12/2016-no dysplasia hyperlipidemia hypertension fatty liver-neg w/u-Negative Hepatitis serologies and autoimmune studies--AST 36 and ALT 33, Iron sat 15% with an Iron of 60 in 07/2012 Denies [place],CVA,Lung disease,r enal disease--has had a heart murmur [...] -followed by --she is going to the [facility] in March of 2024 for further testing including a stress test with echocardiogram and either a MRI or CT scan of the heart Surgical History Surgery Date(Month/Year) appendectomy in December of 2010 complete hysterectomy
--- OUTSIDE RECORDS SUMMARY | 2024-11-16 13:24 | XMS_ITS | Clinical Summary ---
Author Organization [facility] Address [address] [id number] Phone Care Team Providers Care Regional Controller Name Role Phone Colt Teran MD Primary Care Provider [phone] Allergies Active Allergy Reactions Criticality Noted Date Comments Enflurane Unknown 08/20/2024 Piperacillin-Tazobactam 01/26/2019 Propofol Unknown 09/20/2024 Medications amiodarone (PACERONE) 200 MG tablet Take 1 tablet by mouth every morning. 5 Active ELIQUIS 2.5 mg Take 1 tablet by mouth 2 (two) times a day. 5 Active atorvastatin (LIPITOR) 10 MG tablet Take 10 mg by mouth daily. 5 Active dilTIAZem (CARDIZEM CD) 240 MG 24 hr capsule Take 1 capsule by mouth every morning. 5 Active estradioL (ESTRACE) 0.01 % (0.1 mg/gram) vaginal cream APPLY A PEA-SIZED AMOUNT TO URETHRA DAILY FOR 1 MONTH AND THEN 3 TIMES PER WEEK THEREAFTER 5 Active nitrofurantoin (MACROBID) 100 MG capsule TAKE 1 CAPSULE ORALLY EVERY 12 HOURS FOR 7 DAYS MUST ADMINISTER WITH A MEAL/FOOD 5 Active omeprazole (PRILOSEC) 40 MG capsule Take 1 capsule by mouth every morning. 5 Active raloxifene (EVISTA) 60 mg tablet Take 60 mg by mouth daily. 5 Active sucralfate (CARAFATE) 1 gram tablet TAKE 1 TABLET BY MOUTH 4 TIMES A DAY BEFORE MEAL/BED FOR 30 DAYS 5 Active cyanocobalamin, vitamin B-12, (VITAMIN B-12) 1,000 mcg/mL Drop 1 tablet Orally Once a day Active calcium-vitamin D3-vitamin K 500 mg-1,000 unit-40 mcg Chew 1 tablet Orally Once a day Active ferrous sulfate 325 mg (65 mg [place] iron) EC tablet 1 tablet Orally Once a day Active LORazepam (ATIVAN) 0.5 MG tablet TAKE 1/2 TABLET BY MOUTH TWICE A DAY NEEDED FOR ANXIETY Oral for 30 Active Active Problems Problem Noted Date Diagnosed Date Atrial fibrillation 03/31/2023 Hypercholesterolemia 03/31/2023 Benign neoplasm of skin of face 02/08/2021 Benign neoplasm of skin of right lower extremity 02/08/2021 Arthritis 01/26/2019 Idiopathic urticaria 01/26/2019 Asteatosis cutis 12/03/2016 Encounters Date Type Department Care Team Description 09/20/2024 10:20 AM EDT Office Visit [facility] at [address] [address] Ángela Rodriguez CNP Encounter for removal of sutures (Primary Dx) 09/09/2024 9:50 AM EDT Office Visit [facility] at [address] [address] Ángela Rodriguez CNP Laceration of skin of right knee, initial encounter (Primary Dx) from Last 3 Months Immunizations No known immunizations Social History Tobacco Use Types Packs/Day Years Used Date Smoking Tobacco: Never Passive Smoke Exposure: Never Smokeless Tobacco: Never Tobacco Cessation:Counseling Given: Not Answered Education Answer Date Recorded Are you interested in more education? Not on vanessa e 09/09/2024 Are you concerned about learning? Not on file 09/09/2024 No 09/09/2024 No 09/09/2024 Digital Access Answer Date Recorded No 09/09/2024 No 09/09/2024 Reliable internet access at home? Not on file 09/09/2024 Device with a working camera? Not on file Comments Unknown Sex and Gender Information Value Date Recorded Sex Assigned at Not on file Legal Sex Female 9:45 AM EDT Gender Identity Not on file Sexual Orientation Not on file Last Filed Vital Signs Vital Sign Reading Time Taken Comments Blood Pressure 170/72 09/20/2024 12:12 PM EDT Pulse 60 09/20/2024 12:12 PM EDT Temperature 36.6 C (97.9 F) 09/20/2024 12:12 PM EDT Respiratory Rate 16 09/20/2024 12:12 PM EDT Oxygen Saturation 99% 09/20/2024 12:12 PM EDT Inhaled Oxygen Concentration - - Weight 72.6 kg (160 lb) 09/20/2024 12:12 PM EDT Height 167.6 cm (5' 6 ) 09/20/2024 12:12 PM EDT Body Mass Index 25.82 09/20/2024 12:12 PM EDT Plan of Treatment Health Maintenance Due Date Last Done Comments ALT LEVEL (ALANINE AMINOTRANSFERASE) 1944 CREATININE LEVEL 1944 LIPID PANEL 1944 TSH LEVEL 1944 DEPRESSION SCREENING 1956 OSTEOPOROSIS SCREENING INITIAL (ONE-TIME) 01/08/2009 Adult Td,Tdap Booster 01/01/2033 01/01/2023 RSV VACCINE Completed 01/08/2023 PNEUMOCOCCAL VACCINES (50+ years) Completed 01/29/2023, 12/27/2016, 12/29/2010 ZOSTER VACCINES Completed 05/26/2023, 04/2023, 02/10/2017 COVID-19 VACCINE Completed 08/23/2024, , 09/18/2023, Additional history exists SMOKING STATUS SCREENING (Once After 26 Yrs) Completed 09/20/2024 HEPATITIS A VACCINES Aged Out No long er eligible based on patient's age to complete this topic HIB VACCINES Aged Out No longer eligi ble based on patient's age to complete this topic MENINGOCOCCAL VACCINES (ACWY) Aged Out No longer eligible based on patient's age to complete this topic MENINGOCOCCAL VACCINES (B) Aged Out N o longer eligible based on patient's age to complete this topic Medical Devices Not on file Procedures Procedure Name Priority Date/Time Associated Diagnosis Comments SUTURE REMOVAL Routine 09/20/2024 12:40 PM EDT Encounter for removal of sutures LACERATION REPAIR Routine 09/09/2024 10: 44 AM EDT Laceration of skin of right knee, initial encounter from Last 3 Months Results * SUTURE REMOVAL (09/20/2024 12:40 PM EDT) Other Narrative Ángela Rodriguez CNP - 09/20/2024 12:40 PM EDT Ángela Rodriguez CNP 09/20/2024 12:42 PM SUTURE REMOVAL Date/Time: 09/20/2024 12:40 PM Performed by: Ángela Rodriguez CNP Authorized by: Ángela Rodriguez CNP Body area: lower extremity Location details: right knee Wound Appearance: clean Sutures Removed: 3 Post-removal: antibiotic ointment applied and dressing applied Facility: sutures placed in this facility Patient tolerance: patient tolerated the procedure well with no immediate complications Ángela Rodriguez CNP [place] [facility] F inal Result * LACERATION REPAIR (09/09/2024 10:44 AM EDT) Other Narrative Ángela Rodriguez CNP - 09/09/2024 10:44 AM EDT Ángela Rodriguez CNP 09/09/2024 11:01 AM Laceration/Wound Repair Date/Time: 09/09/2024 10:44 AM Performed by: Ángela Rodriguez CNP Authorized by: Ángela Rodriguez CNP Injury: Body area: Lower extremity Location details: Right knee Laceration length (cm): 1.5 Foreign bodies: No foreign bodies Tendon involvement: None Nerve involvement: None Vascular damage?: No Patient sedated?: No Anesthesia: Local anesthesia used? Yes Anesthesia: local infiltration Local anesthetic: lidocaine 1% without epinephrine Lidocaine without Epinephrine total (ml): 2 Procedure Details: Preparation: Patient was prepped and draped in usual sterile fashion Irrigation solution: Saline Irrigation method: Syringe Amount of cleaning: Standard Debridement: None Skin closure: Ethilon Number of sutures: 3 Suture technique: Simple Approximation: Close Dressing: Antibiotic ointment Patient tolerance: Patient tolerated the procedure well with no immediate complications Ángela Rodriguez CNP PROCEDURE/MINOR SURGICAL OR DERABLES Final Result from Last [address] [place] [address] [place] [address] Care Teams Regional Controller Relationship Specialty Start Date End Date Colt Teran MD [address] [place] [address] [place] [address] PCP - General Internal Medicine 09/09/24 Additional Source Comments The information contained in this document represents components of the legal health record. It is not the complete legal health record.[facility]
[2024-11-16 13:51] LABS: Appearance Urine Clear; Glucose Urine UA Negative (Negative); PH 6.0 (5.0-9.0); Specific Gravity - Urine 1.020 (1.005-1.025); UMIC TRIGGER UA YES
== END 2024-11-16 12:44 | disposition home or self-care (01) ==
LOC: HO.10HDLNP 12:43
PROVIDERS: Visit Provider Nurse Practitioner Family
DX: R35.0 Frequency of micturition (principal); R30.0 Dysuria
CPT/HCPCS: 81001; 87086

== ENCOUNTER → 2024-11-23 15:08 | Outpatient (BNV) | payer BC, SELFPAY | PROVIDERS: Absent Provider Hospitalist; Admitting Provider Hospitalist; PCP Internal Medicine; Visit Provider Radiology Vascular & Interventional Radiology | DX: N28.89 Other specified disorders of kidney and ureter (principal) | CPT/HCPCS: 50593; 77013 ==

== ENCOUNTER 2024-11-23 18:07 | Inpatient (IN) | payer BC, SELFPAY ==
--- OUTSIDE RECORDS SUMMARY | 2024-11-18 10:40 | XMS_ITS | Patient Health Record ---
Author Organization [facility] Address [address] [place] [address] Care Team Providers Care Handle Bender Name Role Phone Colt Teran MD Primary Care Provider Emiliano Chau Unavailable [phone] Allergies Allergen (clinical drug ingredient) Drug/Non Drug [...] Provider Speciality Internal M edicine Referred Organization [facility] Referred Provider Emiliano Herrera Referred Address [address] [place] [address], [address],[place], [place],[address], Referred Provider Specialty Gastroentero logy General Notes Dionne Ward 024 04:02:09 PM EDT > called [phone] to request an [facility] referral for [...] Problem Status W/U Status Risk Notes Problem 644889872 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 Problem 222381058 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 Problem 46301329 Acute gastric ul cer without hemorrhage or perforation (K25.3) Active confirmed Problem Chronic gastric ulcer with perforation (22541767) Chronic or unspecified gastric ulcer with perforation (K25.5) Active confirmed Problem Benign neoplasm of stomach (13367415) Polyp of stomach and duodenum (K31.7) Active confirmed Problem Duodenitis (41280974) Duodenitis (K29.80) Active confirmed Problem 66187850 Blood in stool (K92.1) Active confirmed Problem 777525899 Diverticulosis (K57.90) Active confirmed Problem 84068966 Heme + stool (R19.5) Active confirmed Problem 97189619 Hiatal hernia (K44.9) Active confirmed Problem Benign neoplasm of stomach (65011335) Gastric polyps (K31.7) Active confirmed Problem 340662368 Iron deficiency anemia due to chronic blood loss (D50.0) Active confirmed Problem 670914745 GERD with esophagitis (K21.0) Active confirmed Problem 50661943 UGI bleed (K92.2) Active confirmed Problem 662407388 Angiodysplasia o f colon (K55.20) Active confirmed Problem Hemorrhage of colon due to diverticulosis (296087244191412) Diverticulosis large intestine w/o perforation or abscess w/bleeding (K57.31) Active confirmed Problem Sevilla esophagus (958722137) 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) Active confirmed Problem Chronic gastritis (3049959) Chronic gastritis (K29.50) Active confirmed Problem 836637645 Anemia due to ot her cause, not classified (D64.89) Active confirmed Problem 793275828 Anemia due to ac [place] blood loss (D62) Active confirmed Problem Gastroesophageal reflux disease with esophagitis, unspecified whether hemorrhage (K21.00) Active confirmed Vital Signs Blood pressure diastolic 00 mm Hg 01/20/2024 Height 66.50 in 01/20/2024 Blood pressure systolic 00 mm Hg 01/20/2024 Weight 165 lbs 01/20/2024 BMI 26.23 kg/m2 01/20/2024 Encounters Encounter Location Date Provider Diagnosis [facility] [address] [place] [address] 01/20/2024 Emiliano Herrera Sevilla's esophagus without dysplasia [...] K22.70) 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 Overall, Sulema appears quite well. She [...] Name:Emiliano Herrera , 01/19/2025 01:00:00 PM, [address] [place] [address], [address] [address], [place], [address], Insurance Providers Payer Name Payer Address Payer Phone Subscriber Number Group Number Insured Name Patient Relationship to Insured Coverage Start Date Coverage End Date [facility] PROFESSIONAL CLAIMS [address] [place] [address] [phone] [id number] SULEMA SWIFT Self - patient is the insured Medical (General) History Medical History History ICD Code GERD with HH with long segme nt of Sevilla's esophagus diagnosed in 1994-most recent EGD was in 12/2016-no dysplasia hyperlipidemia hypertension fatty liver-neg w/u-Negative Hepatitis serologies and autoimmune studies--AST 36 and ALT 33, Iron sat 15% with an Iron of 60 in 07/2012 Denies [place],CVA,Lung disease,r enal disease--has had a heart murmur [...] -followed by --she is going to the [facility] in March of 2024 for further testing including a stress test with echocardiogram and either a MRI or CT scan of the heart Surgical History Surgery Date(Month/Year) appendectomy in December of 2010 complete hysterectomy
--- OUTSIDE RECORDS SUMMARY | 2024-11-18 10:40 | XMS_ITS | Clinical Summary ---
Author Organization [facility] Address [address] [id number] Phone Care Team Providers Care Farmer Vegetable Name Role Phone Colt Teran MD Primary Care Provider [phone] Allergies Active Allergy Reactions Criticality Noted Date [...] Active ferrous sulfate 325 mg (65 mg [place] iron) EC tablet 1 tablet Orally Once [...] 09/20/2024 10:20 AM EDT Office Visit [facility] at [address] [address] Ángela Rodriguez CNP Encounter for removal of sutures (Primary Dx) 09/09/2024 9:50 AM EDT Office Visit [facility] at [address] [address] Ángela Rodriguez CNP Laceration of skin of [...] with no immediate complications Ángela Rodriguez CNP [place] [facility] F inal Result * LACERATION [...] Final Result from Last [address] [place] [address] [address] Care Teams Farmer Vegetable Relationship Specialty Start Date End Date Colt Teran MD [address] [place] [address] [place] [address] PCP - General Internal Medicine 09/09/24 Additional Source Comments The information contained in this document represents components of the legal health record. It is not the complete legal health record.[facility]
[2024-11-23] VITALS (38 sets, daily range): BP systolic 91–186; BP diastolic 45–103; PULSE 52–74; RESP 12–19; TEMP 36.6–37.2; O2SAT 94–97; BMI 26.6
--- NOTE | ~2024-11-23 | CT_ITS ---
History: Patient with 2 cm mid pole central right renal mass. We extensively discussed the risks associated with cryoablation of this mass as it is somewhat difficult to appreciate without contrast and sits in close proximity to the hilar vasculature and collecting system. In addition, the patient is on Eliquis, but has held it appropriately for three to four days given her chronic kidney disease. Procedure performed: 1. CT-guided cryoablation of right renal mass Physician: Anabell Isbell MD Anesthesia: IV moderate sedation with intravenous fentanyl and versed was administered under my direct supervision with continuous physiologic monitoring for a total of 45 minutes.; 9 mL of 1% lidocaine used for local anesthesia. Specimen: None Drain: None Estimated blood loss: Minimal Complications: None Procedure in detail: Informed and written consent was obtained. The patient was positioned prone on the CT examination table. Preliminary CT scan showed no appreciable mass. Therefore, iodinated contrast was administered intravenously and the scan was repeated. This demonstrated a mass measuring close to 2 cm somewhat central at the mid pole of the right kidney. This was consistent with preprocedural imaging. The overlying skin was prepped and draped and we marked two areas for access. 1% lidocaine was injected into the subcutaneous tissues at the planned access sites. Two small incisions were made adjacent to one another with a #11 blade and spaced between 1 and 1.5 cm apart. Next, and in a sequential fashion, two ICE Fix cryoablation probes were advanced under CT guidance directly into the mass. The positioning was exactly as desired. We then began treatment with a freeze cycle followed by passive thaw followed by a second freeze cycle followed by an active thaw with subsequent tract ablation performed on both probes. The ice ball was monitored during treatment and confirmed surgical margins were obtained for the mass. Following removal of the probes, a subsequent CT scan showed a moderate retroperitoneal (not subcapsular) hematoma immediately following probe removal. We monitored this with successive CT examinations, which showed that it was stable without ongoing bleeding. We therefore elected to admit the patient for observation, but did not feel that an angiogram was necessary. We were satisfied with this and elected to terminate the procedure. A sterile dressing was applied. Summary: Successful CT-guided cryoablation of a right mid pole upper pole renal mass as described in detail above. This was a high risk mass for ablation given its central location and difficulty with visualization as well as history of Eliquis use (held). The patient did develop a moderate hematoma immediately following the procedure within the retroperitoneum, but we monitored it with subsequent CT examinations before leaving the room. This showed that it was stable. Nonetheless, as a measure caution, the patient was admitted for overnight observation and did well with a discharge the following day. She did not require an angiogram or transfusion. Electronically signed by: Kev Isbell MD 11/25/2024 01:59 PM EDT
[2024-11-23 12:05] LABS: MANUAL DIFF FLAG NO
[2024-11-23 12:07] LABS: Hematocrit 41.2 % (37.0-47.0); Hemoglobin 14.1 g/dl (12.0-16.0); Imm Gran Abs Auto 0.03 X10*3/uL (0.00-0.03); Imm Gran Pct Auto 0.4 % (0.0-0.4); Lymphocytes Absolute Auto 1.1 X10*3/uL (1.2-4.9); Mean Corpuscular HGB Conc 34.2 g/dl (31.0-35.0); Mean Corpuscular Hemoglobin 30.7 pg (27.0-33.0); Mean Corpuscular Volume 89.6 fL (80.0-98.0); NRBC Abs Auto 0.000 X10*3/uL (0.0-0.012); NRBC Pct Auto 0.0 /100WBC (0.0-0.2); Platelet Count 284 X10*3/uL (160-400); Red Blood Count 4.60 X10*6/uL (4.20-5.50); White Blood Count 8.2 X10*3/uL (4.8-10.8)
[2024-11-23 12:15] LABS: INTERNATIONAL NORM RATIO 1.1 (0.9-1.1); Prothrombin Time 12.7 SEC (10.9-12.4)
[2024-11-23 12:23] LABS: Anion Gap 12 (12-20); Blood Urea Nitrogen 14 mg/dL (9-16); Calcium 8.9 mg/dL (8.4-10.2); Carbon Dioxide 23 mmol/L (22-29); Chloride 103 mmol/L (96-108); Estimated Glomerular Filt Rate 49; Potassium 4.3 mmol/L (3.3-5.1); Sodium 134 mmol/L (135-145)
[2024-11-23 17:49] LABS: Hematocrit 34.8 % (37.0-47.0); Hemoglobin 11.7 g/dl (12.0-16.0)
[2024-11-23] MEDS: iohexoL 350 MG/ML 100 ML INFUS..BTL IV (17:52)
--- NOTE | 2024-11-23 19:47 | P.HPHOSP_ITS ---
History of Present Illness Date of Service: 11/23/24 Attending physician on admission: Delia Barkley Chief Complaint: s/p renal bx wth retroperitoneal bleed Pt is an 79 yo female with PMH HTN, anxiety, HLD, recurring UTI, AFIB on eliquis, PNA, vertigo, WES, GERD, Sevilla's esophagus, HCM/ holistic murmur is being seen this evening for admission s/p renal bx for R renal mass found 7 months ago with resulting retroperitoneal bleed. Pt was told to stop her eliquis 2 days prior to the procedure. Pt's HGB went from 14.1 to 11..7 post procedure. 7 months prior, pt received an US for abnormal LFT's from possible statin use and incidentally, the right renal mass was found. Pt was scheduled for the procedure earlier in October but procedure was postphoned due to technical issues with equipment and pt was sent home. Pt has been experiencing increased anxiety over the unknowns overall but is coping well with today's events. Current h/h as of 1730 11.7/34.8 and PLTS 284K. INR 1.1. Hemodynamics currently stable, BP 116/94, HR 73 NSR, POX 95% on RA, pt afebrile. R FLank area free of ecchymosis or firmness and only a very small bruise noted at insertion site. Abd is soft, nontender and pt can move upper body with ease. Pt experiencing urge to void and staff helped pt use bed zavaleta for now. The retroperitoneal bleed is per ED provider and unable to confirm details with IR provider, Dr. Randolph. Because pt is currently hemodynamically stable, admitting pt to telemetry for overnight with H/H every 2-4 hours as needed. Blood consent signed at the bedside in case transfusion is indicated. Pt is agreeable to transfusion if needed and reviewed the risks associated with transfusion. Pain also currently controlled. Review of Systems 2 Review of Systems: Pt denies any chest pain, SOB at rest, flank pain, abd pain, N or V. Pt is able tot follow commands and memory is intact. Pt reports the urge to void. Yes all other systems are reviewed and are negative [facility] Medical History Degenerative joint disease of thoracic spine Gastrointestinal bleed Paroxysmal atrial fibrillation Afib Hypertrophic cardiomyopathy Atrial fibrillation with RVR Anemia Gastric ulcer History of blood transfusion Vitamin B12 deficiency Overweight (BMI 25.0-29.9) Primary osteoarthritis of hand Vitamin D deficiency Osteopenia Anemia Cardiac murmur Hiatal hernia Sevilla's esophagus Benign essential hypertension Pure hypercholesterolemia Cognitive capacity: A/O X3 Functional capacity: uses cane/walker Patient : No Family History Father Hypertension Mother Stroke Surgical History H/O colonoscopy History of esophagogastroduodenoscopy (EGD) History of appendectomy History of hysterectomy Social History Household Members: Spouse Housing: House Are you a primary pet care attendant to a significant other at home: No Do you presently have visiting nurse or other home services: No Alcohol intake: never Patient Tobacco Use Status: Former Tobacco user e-Cigarette/Vaping Use: Never Used Second Hand Smoke Exposure: No Have you been hit, kicked, punched, or otherwise hurt by someone within the past year? If so, by whom?: No Are you DNR?: No Advance Directives: No Advance Directives Information Provided: Yes Advance Directives Date on File: 01/22/21 Patient : No Poor oral hygiene: Yes service: No Current occupational status: retired Cognitive needs: Yes (walker, cane) Hearing needs: No Vision needs: Yes (glasses) Ebola Risk: Travel/Contact With Anyone From Affected Area/s: No Has Patient Experienced Ebola Symptoms: No Meds Allergies Allergy/AdvReac Type Severity Reaction Status Date / Time enflurane (ENFLURANE) Allergy Severe Per Verified 11/23/24 11:50 Patient Liver toxicity piperacillin (Zosyn) Allergy Severe Rash Verified 11/23/24 11:50 tazobactam (Zosyn) Allergy Severe Rash Verified 11/23/24 11:50 Active Medications: Current Medications Acetaminophen (Acetaminophen 325 Mg Tablet) 650 mg PO Q4H PRN PRN Reason: Pain, Moderate(Pain Scale 4-6) Acetaminophen (Acetaminophen 325 Mg Tablet) 650 mg PO Q6H PRN PRN Reason: Pain, Mild 1-3,fever,headache Acetaminophen (Acetaminophen 325 Mg Tablet) 650 mg PO Q6H PRN PRN Reason: Pain, Mild 1-3,fever,headache Albuterol/Ipratropium (Albuterol/Iprat 2.5/0.5mg 3 Ml Ampul.Neb) 3 ml INHALE Q4H PRN PRN Reason: Shortness of Breath/Wheezing Amiodarone HCl (Amiodarone Hcl 200 Mg Tablet) 200 mg PO DAILY [facility] Atorvastatin Calcium (Atorvastatin Calcium 10 Mg Tablet) 10 mg PO DAILY [facility] Calcium Carbonate (Calcium Carbonate 750 Mg Tab.Chew) 750 mg PO Q4H PRN PRN Reason: Heartburn Calcium Carbonate (Calcium Carbonate 750 Mg Tab.Chew) 750 mg PO Q4H PRN PRN Reason: Heartburn Cyanocobalamin (Cyanocobalamin (Vitamin B-12) 1,000 Mcg Tablet) 1,000 mcg PO DAILY [facility] Lorazepam (Lorazepam 0.5 Mg Tablet) 0.5 mg PO BID PRN PRN Reason: Anxiety Magnesium Hydroxide (Milk Of Magnesia 30 Ml Oral.Susp) 30 ml PO DAILY PRN PRN Reason: Constipation Magnesium Hydroxide (Milk Of Magnesia 30 Ml Oral.Susp) 30 ml PO DAILY PRN PRN Reason: Constipation Melatonin (Melatonin 3 Mg Tablet) 6 mg PO BEDTIME PRN PRN Reason: Insomnia Omeprazole (Omeprazole 40 Mg Capsule.Dr) 40 mg PO DAILY@0630 [facility] Ondansetron HCl (Ondansetron Hcl 4 Mg/2 Ml Vial) 4 mg IVPUSH Q8H PRN PRN Reason: Nausea and Vomiting Oxycodone HCl (Oxycodone Hcl Immed Release 5 Mg Tablet) 5 mg PO Q4H PRN PRN Reason: Pain, Severe (Pain Scale 7-10) Polyethylene Glycol (Polyethylene Glycol 3350 17 Gm Powd.Pack) 17 gm PO DAILY PRN PRN Reason: Constipation Senna (Sennosides 8.6 Mg Tablet) 17.2 mg PO BEDTIME [facility] Sodium Chloride (0.9 % Sodium Chloride Flush 3 Ml Syringe) 3 ml IVFLUSH QSHIFT SERGEY Sodium Chloride (0.9 % Sodium Chloride Flush 3 Ml Syringe) 3 ml IVFLUSH QSHIFT SERGEY Sucralfate (Sucralfate 1 Gm Tablet) 1 gm PO QIDACHS [facility] Vitamin D (Cholecalciferol (Vitamin D3) 25 Mcg Tablet) 25 mcg PO DAILY [facility] Home Medications ?Medication ?Instructions ?Recorded ?Confirmed ?Last Taken ?Type omeprazole 40 mg capsule,delayed 40 mg PO DAILY@0630 0 08/10/21 11/23/24 11/23/24 History release cyanocobalamin (vitamin B-12) 1,000 mcg PO DIRECTED 11/03/24 11/23/24 11/03/24 History 1,000 mcg tablet (Vitamin B-12) Physical Exam 2 Vital Signs and Narrative: Vital Signs: Last Vital Signs Temp 97.9 F 11/23/24 17:25 Pulse 71 11/23/24 19:35 Resp 18 11/23/24 19:35 BP 116/94 H 11/23/24 19:35 Pulse Ox 94 11/23/24 19:35 O2 Del Method Room Air 11/23/24 19:35 O2 Flow Rate 2 11/23/24 16:55 BMI result Body Mass Index 26.6 Alert and orientated X3, able to give good history. Neuro: CN II-X11 intact, no deficits, visual acuity intact EYES: PERRLA, EOM intact, sclerae nonicteric, conjunctiva pink ENT: hearing intact, no issues with swallowing, uvula midline, lips moist, nares patent no epistaxis Cardiac: S1 S2 RRR, holistic murmur present, no JVD, no edema in Lower ext Pulmonary: lungs clear to auscultation B Abdominal: BS active in all 4 quadrants, no guarding, no rebounding, no firmness, no extensive bruising or ecchymosis B flank area, small bruise noted at insertion site under dressing only for BX MSK: strength 4/5 upper and lower extremities : no CVA tenderness + bladder distension Extremities: no edema in lower extremities, PT and DP pulses palpable +2 Psych: mood anxious, judgement and insight good Skin: intact, dressing over bx site is clean and dry Results Labs 11/23/24 17:39 11/23/24 12:01 Labs: Laboratory Results - last 24 hr 11/23/24 12:01 MCV 89.6 MCH 30.7 MCHC 34.2 RDW 12.6 Plt Count 284 D MPV 9.4 Immature Gran % (Auto) 0.4 Neut % (Auto) 74.7 H Lymph % (Auto) 13.8 L [place] % (Auto) 9.5 Eos % (Auto) 1.0 Baso % (Auto) 0.6 Lymph # (Auto) 1.1 L [place] # (Auto) 0.8 Eos # (Auto) 0.1 Baso # (Auto) 0.1 Abs Immat Gran (auto) 0.03 Absolute Neuts (auto) 6.2 Absolute Nucleated RBC 0.000 Nucleated RBC % (auto) 0.0 PT 12.7 H INR 1.1 Anion Gap 12 Estim Creat Clear Calc TNP Estimated GFR 49 Random Glucose 87 Calcium 8.9 ECG Prior ECG tracings: not available for review Imaging Radiologist's Impressions: Imaging not read by radiologist Assessment and Plan (1) S/P cryoablation of mass of kidney: Status: Acute (2) Retroperitoneal bleed: Status: Acute Plan Pt is an 79 yo female with PMH HTN, anxiety, HLD, recurring UTI, AFIB on eliquis, PNA, vertigo, WES, GERD, Sevilla's esophagus, HCM is being seen this evening for admission s/p renal bx for R renal mass found 7 months ago with resulting retroperitoneal bleed. Pt was told to stop her eliquis 2 days prior to the procedure. Hgb was 14.1 prior to procedure and dropped to 11.7. Hemodynamics stable on admission. S/P cryoblation of mass of kidney Per IR and urology Retroperitoneal bleed post procedure Hgb 14.1 pre, 11.7 post PLTS WNL INR 1.1 prior to proceudre No indication for VIT k or reversal for eliquis adexanet [place] HD stable, pt on RA Next H/H 2100 Blood consent completed at bedside, no indication for transfusion at this time VS Q2H Bed Rest overnight Mild IVF noting hx of CM No NSAIDS Nursing communication to check R flank area Q2h and prn Urinary retention Pt able to void using bed zavaleta No straight cath or amin needed currently GERD/ Sevilla's esophagus Stating IV protonix as pt is symptomatic Can change to omeprazole in AM if improved HTN Holding all antihypertensives overnight, BP currently 113/50 VS Q2H initially AFIB Currently NSR Hold ELiquis, resume per urology, IR HLD Pt has continued statin noting hx of transaminitis LFTs pending Anxiety Home dose of ativan ordered to help pt rest Support and reassurance provided DVT prophylaxis: contraindicated MED REC PENDING FULL CODE Quality Stroke Does the patient have a stroke diagnosis?: No Reason for No Anti-thrombotic by Day Two: Contraindicated VTE Prior VTE?: No VTE Risk Level:: Medical - low VTE Device Contraindication: N/A - Device Ordered VTE Drug Contraindication: Treatment Not Indicated
[2024-11-23 20:45] LABS: Alanine Aminotransferase 158 U/L (0-31); Albumin Level 4.2 g/dL (3.5-5.0); Alkaline Phosphatase 56 U/L (39-117); Aspartate Amino Transferase 142 U/L (5-31); Total Protein 6.7 g/dL (6.5-8.0)
[2024-11-23] MEDS: 0.9 % Sodium Chloride Flush 3 ML SYRINGE IVFLUSH (21:22)
[2024-11-23 21:41] LABS: Hematocrit 33.4 % (37.0-47.0); Hemoglobin 11.6 g/dl (12.0-16.0)
--- NOTE | 2024-11-23 23:35 | PM.EVENT ---
Event Note Date of Service: 11/23/24 Event Note: Pt's repeat H/H at 2130 11.6/33.4 stable from previous levels and hemodynamics remain stable. Pt has low grade temp 99.o. Tylenol ordered. WIll recheck at 0100. Time Spent With Patient Time: Total time managing care of this patient today ____ minutes.
[2024-11-24 01:28] VITALS: BMI 26.7
[2024-11-24 01:41] LABS: Hematocrit 30.2 % (37.0-47.0); Hemoglobin 10.4 g/dl (12.0-16.0)
[2024-11-24 04:00] VITALS: BP 129/59; PULSE 60; RESP 16; TEMP 36.9; O2SAT 95
[2024-11-24 07:59] LABS: MANUAL DIFF FLAG NO
[2024-11-24 08:00] VITALS: BP 146/65; PULSE 60; RESP 16; TEMP 36.2; O2SAT 94
[2024-11-24 08:07] LABS: Hematocrit 33.2 % (37.0-47.0); Hemoglobin 11.0 g/dl (12.0-16.0); Imm Gran Abs Auto 0.05 X10*3/uL (0.00-0.03); Imm Gran Pct Auto 0.4 % (0.0-0.4); Lymphocytes Absolute Auto 1.1 X10*3/uL (1.2-4.9); Mean Corpuscular HGB Conc 33.1 g/dl (31.0-35.0); Mean Corpuscular Hemoglobin 30.6 pg (27.0-33.0); Mean Corpuscular Volume 92.2 fL (80.0-98.0); NRBC Abs Auto 0.000 X10*3/uL (0.0-0.012); NRBC Pct Auto 0.0 /100WBC (0.0-0.2); Platelet Count 223 X10*3/uL (160-400); Red Blood Count 3.60 X10*6/uL (4.20-5.50); White Blood Count 12.0 X10*3/uL (4.8-10.8)
[2024-11-24 08:24] LABS: Alanine Aminotransferase 212 U/L (0-31); Albumin Level 3.3 g/dL (3.5-5.0); Alkaline Phosphatase 46 U/L (39-117); Anion Gap 9 (12-20); Aspartate Amino Transferase 282 U/L (5-31); Blood Urea Nitrogen 12 mg/dL (9-16); Calcium 8.1 mg/dL (8.4-10.2); Carbon Dioxide 22 mmol/L (22-29); Chloride 109 mmol/L (96-108); Creatinine Clr Calc Pharmacy 44.4; Estimated Glomerular Filt Rate 53; Potassium 3.8 mmol/L (3.3-5.1); Sodium 136 mmol/L (135-145); Total Protein 5.3 g/dL (6.5-8.0)
--- NOTE | 2024-11-24 08:28 | PHA.MEDREC ---
Addendum entered by Jeffrey Sequeira RPh 11/24/24 08:38: Reviewed by [facility] Original Note: Pharmacy Consult ? Medication Reconciliation Pharmacy has completed the medication reconciliation. Spoke with pt and she confirmed her medications. Pt confirmed she takes her Vitamin B-12 MO and , pt stopped her Eliquis on Friday for the Surgery today, she still has Lorazepam as needed for anxiety, she states she takes Sucralfate 1gm tabs still QIDACHS and gets it through mail order and she is still taking Estradiol Cream Q48h as needed for itching/burning.
--- NOTE | 2024-11-24 08:43 | MHC.CM.PN ---
Pt. lives with family, PCP confirmed: Dr. Lugo, HCP is on file and confirmed: naming Leonel. Pt. does not use home health services. For DME, she has a cane and a shower chair. She is able to arrange transport home at [place], DCP: home, self care, CM to follow for DC needs.
[2024-11-24] MEDS: Ferrous Sulfate 324 MG TABLET.DR PO (09:51)
[2024-11-24] MEDS: 0.9 % Sodium Chloride Flush 3 ML SYRINGE IVFLUSH ×2 (09:52→15:52)
[2024-11-24 11:35] VITALS: BP 108/56; PULSE 59; RESP 16; TEMP 36.4; O2SAT 94
[2024-11-24 15:26] VITALS: BP 123/56; PULSE 64; RESP 18; TEMP 37.1; O2SAT 94
[2024-11-24 15:35] LABS: Hematocrit 30.3 % (37.0-47.0); Hemoglobin 10.4 g/dl (12.0-16.0); Mean Corpuscular HGB Conc 34.3 g/dl (31.0-35.0); Mean Corpuscular Hemoglobin 31.2 pg (27.0-33.0); Mean Corpuscular Volume 91.0 fL (80.0-98.0); NRBC Abs Auto 0.000 X10*3/uL (0.0-0.012); NRBC Pct Auto 0.0 /100WBC (0.0-0.2); Platelet Count 218 X10*3/uL (160-400); Red Blood Count 3.33 X10*6/uL (4.20-5.50); White Blood Count 13.6 X10*3/uL (4.8-10.8)
--- NOTE | 2024-11-24 15:50 | PM.DS ---
DS: Providers Provider Date of Service: 11/24/24 Date of admission: 11/23/24 18:07 Date of discharge: 11/24/24 Primary care physician: Colt Teran MD Attending physician on discharge: Brennon Chatterjee DS: Diagnosis Discharge Diagnosis (1) S/P cryoablation of mass of kidney: Status: Acute (2) Retroperitoneal bleed: Status: Acute DS: Summary Hospital Course Hospital Course: 79 yo female with PMH HTN, anxiety, HLD, recurring UTI, AFIB on eliquis, PNA, vertigo, WES, GERD, Sevilla's esophagus, HCM/ holistic murmur is being seen this evening for admission s/p renal bx for R renal mass found 7 months ago with resulting retroperitoneal bleed. Pt was told to stop her eliquis 2 days prior to the procedure. Pt's HGB went from 14.1 to 11..7 post procedure. 7 months prior, pt received an US for abnormal LFT's from possible statin use and incidentally, the right renal mass was found. Pt was scheduled for the procedure earlier in October but procedure was postphoned due to technical issues with equipment and pt was sent home. Pt has been experiencing increased anxiety over the unknowns overall but is coping well with today's events. Current h/h as of 1730 11.7/34.8 and PLTS 284K. INR 1.1. Hemodynamics currently stable, BP 116/94, HR 73 NSR, POX 95% on RA, pt afebrile. R FLank area free of ecchymosis or firmness and only a very small bruise noted at insertion site. Abd is soft, nontender and pt can move upper body with ease. Pt experiencing urge to void and staff helped pt use bed zavaleta for now. The retroperitoneal bleed is per ED provider and unable to confirm details with IR provider, Dr. Randolph. Because pt is currently hemodynamically stable, admitting pt to telemetry for overnight with H/H every 2-4 hours as needed. Blood consent signed at the bedside in case transfusion is indicated. Pt is agreeable to transfusion if needed and reviewed the risks associated with transfusion. Pain also currently controlled. Patient's baseline hemoglobin is 14 mg/dL - postoperatively, hemoglobin reduced to 10.5-11 - 2 repeat H&H on 11/24 - unchanged 11/24/2024, the patient's H&H was repeated, remained within 10.5-11 mg/dL. No worsening abdominal pain or flank pain. No evidence of ecchymosis on the abdominal wall. Patient remained normotensive, without tachycardia. Deemed safe for discharge home with repeat blood work in 2 days. Status at Discharge Functional status at discharge: independent ambulation Overall status at discharge: patient is back to baseline Time Attestation Total time managing care of this patient today: 35 mintues. Discharge Coordination Time (in mins): 10 Quality: Safe Use of Opioids Does Pt have an Active Cancer Diagnosis on the Problem List?: No Quality: Stroke Does the patient have a stroke diagnosis?: No Physical Exam Exam: Exam: General: A&O x3, oriented to time place person and situation, comfortable, no pain Cardiac: S1, S2 auscultated with no S3/4, no MRG. Well perfused. Respiratory: Normal breath sounds auscultated throughout all lung zones, without wheezing, rales. Normal rate. GI/ : No abdominal pain on palpation, no masses or distentions. MSK: Normal ambulation without pain at bony prominences or musculature Neurological: Normal neurological examination on overview, without obvious CN II-XII abnormalities. Vital Signs: Vital Signs: Last Vital Signs Temp 98.8 F 11/24/24 15:26 Pulse 64 11/24/24 15:26 Resp 18 11/24/24 15:26 BP 123/56 L 11/24/24 15:26 Pulse Ox 94 11/24/24 15:26 O2 Del Method Room Air 11/24/24 15:26 O2 Flow Rate 2 11/23/24 16:55 BMI result Body Mass Index 26.7 DS: Data Data Completed and Pending Completed studies during hospitalization [Text1]: Procedures Excision of Large Intestine, Via Natural or Artificial Opening Endoscopic, Diagnostic (10/29/21) Excision of Stomach, Pylorus, Via Natural or Artificial Opening Endoscopic, Diagnostic (06/24/22) Inspection of Upper Intestinal Tract, Via Natural or Artificial Opening Endoscopic (06/24/22) Mormonism of Cardiac Rhythm, Single (06/05/22) Transfusion of Nonautologous Red Blood Cells into Peripheral Vein, Percutaneous Approach (06/24/22) Ultrasonography of Heart with Aorta, Transesophageal (06/05/22) Labs on day of discharge: Laboratory Results - last 24 hr 11/23/24 11/23/24 11/23/24 12:01 17:39 21:35 WBC RBC Hgb 11.7 L 11.6 L Hct 34.8 L 33.4 L MCV MCH MCHC RDW Plt Count MPV Immature Gran % (Auto) Neut % (Auto) Lymph % (Auto) [place] % (Auto) Eos % (Auto) Baso % (Auto) Lymph # (Auto) [place] # (Auto) Eos # (Auto) Baso # (Auto) Abs Immat Gran (auto) Absolute Neuts (auto) Absolute Nucleated RBC Nucleated RBC % (auto) Sodium Potassium Chloride Carbon Dioxide Anion Gap BUN Creatinine Estim Creat Clear Calc Estimated GFR Random Glucose Calcium Total Bilirubin 0.5 Direct Bilirubin 0.2 AST 142 H ALT 158 H Alkaline Phosphatase 56 Total Protein 6.7 Albumin 4.2 Blood Type A Positive Antibody Screen NEGATIVE 11/24/24 11/24/24 11/24/24 01:36 07:17 15:19 WBC 12.0 H 13.6 H RBC 3.60 L D 3.33 L Hgb 10.4 L 11.0 L 10.4 L Hct 30.2 L 33.2 L 30.3 L MCV 92.2 91.0 MCH 30.6 31.2 MCHC 33.1 34.3 RDW 12.7 12.7 Plt Count 223 218 MPV 10.0 9.7 Immature Gran % (Auto) 0.4 Neut % (Auto) 79.2 H Lymph % (Auto) 9.3 L [place] % (Auto) 10.6 Eos % (Auto) 0.2 Baso % (Auto) 0.3 Lymph # (Auto) 1.1 L [place] # (Auto) 1.3 H Eos # (Auto) 0.0 Baso # (Auto) 0.0 Abs Immat Gran (auto) 0.05 H Absolute Neuts (auto) 9.5 H Absolute Nucleated RBC 0.000 0.000 Nucleated RBC % (auto) 0.0 0.0 Sodium 136 Potassium 3.8 Chloride 109 H Carbon Dioxide 22 Anion Gap 9 L BUN 12 Creatinine 1.01 Estim Creat Clear Calc 44.4 Estimated GFR 53 Random Glucose 70 Calcium 8.1 L D Total Bilirubin 0.7 Direct Bilirubin AST 282 H ALT 212 H Alkaline Phosphatase 46 Total Protein 5.3 L Albumin 3.3 L Blood Type Antibody Screen Discharge Plan Discharge Anticipated Discharge Date/Time: 11/24/24 15:52 Patient Disposition: Home, Self-Care Discharge Diagnosis: Retroperitoneal hematoma Referrals: Colt Teran MD [Primary Care Provider, Internal Medicine] - 1 Week Discharge Medications: Continued (DME) SHOWER CHAIR See Rx Instructions .Route .MEDSUPPLY Qty: 1 0RF Rx Instructions: As directed; Rx is for INDEFINITE/PERMANENT/FOREVER/LIFETIME USE (DME) FRONT-WHEELED WALKER See Rx Instructions .Route .MEDSUPPLY Qty: 1 0RF Rx Instructions: As directed ; Ht = 5'6 ; Wt = 164 lbs; Rx is for INDEFINITE/PERMANENT/FOREVER/LIFETIME USE ferrous sulfate 325 mg (65 mg iron) tablet 325 mg PO BID Qty: 180 3RF amiodarone 200 mg tablet 200 mg PO DAILY Qty: 90 1RF sucralfate [Carafate] 1 gram tablet 1 g PO QIDACHS 30 Days Qty: 120 3RF raloxifene 60 mg tablet 60 mg PO DAILY 90 Days Qty: 90 3RF lorazepam 0.5 mg tablet 0.5 mg PO BID PRN (Reason: anxiety) Qty: 30 0RF Rx Instructions: Take only as needed for increased anxiety cyanocobalamin (vitamin B-12) [Vitamin B-12] 1,000 mcg tablet 1,000 mcg PO MOTH Rx Instructions: takes friday and atorvastatin 10 mg tablet 10 mg PO BEDTIME estradiol 0.01 % (0.1 mg/gram) cream 2 g vaginal Q48H PRN (Reason: Itching/Burning) cholecalciferol (vitamin D3) 25 mcg (1,000 unit) capsule 25 mcg PO DAILY 90 Days Qty: 90 3RF omeprazole 40 mg capsule,delayed release(DR/EC) 40 mg PO DAILY@0630 diltiazem HCl 240 mg capsule,extended release 24hr 240 mg PO DAILY 90 Days Qty: 90 1RF Protocol: Hold for SBP/HR < HOLD for SBP < : 90 HOLD for HR < : 60 Held Eliquis 2.5 mg tablet 2.5 mg PO BID 90 Days Qty: 180 3RF Hold Instructions: Resume on 12/08/24. Follow up with primary care provider. Follow up with Interventional Radiology (Dr. Isbell) Discharge Orders: Discharge Order (Routine); Ordered 11/24/24 Ordered By: Brennon Chatterjee Diet: Advance to usual diet Activity on Discharge: As tolerated Stand Alone Forms: Patient Portal Discharge page Print Language: Indonesian Care Plan Goals: - REPEAT CBC/ H&H IN 2 DAYS AND AGAIN IN 1 WEEK - FOLLOW UP OUTPATIENT INTERVENTIONAL RADIOLOGY - FOLLOW-UP PRIMARY CARE WITHIN 1 WEEK OF DISCHARGE - HOLD ELIQUIS (APIXABAN) FOR THE NEXT 1-2 WEEKS - RESUME ELIQUIS AFTER DISCUSSION WITH INTERVENTIONAL RADIOLOGY OR PRIMARY CARE Health Concerns: ABOVE Plan of Treatment: ABOVE Assessment: HEMODYNAMICALLY STABLE WITH NO EVIDENCE OF HYPOTENSION, TACHYCARDIA. H&H REMAINING BETWEEN 10.5-11 MG/DL.
== END 2024-11-24 16:59 | disposition home or self-care (01) | DRG 793 ==
LOC: HO.IMC 20:46
PROVIDERS: Nurse Practitioner Family; Radiology Diagnostic Radiology; Radiology Vascular & Interventional Radiology; Absent Provider Hospitalist; Admitting Provider Hospitalist; PCP Internal Medicine; Visit Provider Hospitalist
PROC: 0T503ZZ Destruction of Right Kidney, Percutaneous Approach (ICD-10-PCS; principal; 2024-11-23 13:00)
DX: N99.841 Postprocedural hematoma of a genitourinary system organ or structure following other procedure (principal); I42.2 Other hypertrophic cardiomyopathy; N28.89 Other specified disorders of kidney and ureter; F41.9 Anxiety disorder, unspecified; I10 Essential (primary) hypertension; Y83.8 Other surgical procedures as the cause of abnormal reaction of the patient, or of later complication, without mention of misadventure at the time of the procedure; R33.9 Retention of urine, unspecified; K21.9 Gastro-esophageal reflux disease without esophagitis; K22.70 Barrett's esophagus without dysplasia; Z79.01 Long term (current) use of anticoagulants; Z87.891 Personal history of nicotine dependence; Z79.899 Other long term (current) drug therapy
CPT/HCPCS: 36415; 50593; 77013; 80048; 80053; 80076; 85014; 85018; 85025; 85027; 85610; 86850; 86900; 86901; 99152; 99153; C2618; J0360; J0690; J1171; J2003; J2250; J2470; J3010

== ENCOUNTER → 2024-11-23 18:07 | Outpatient (BNV) | payer BC, SELFPAY | PROVIDERS: Absent Provider Hospitalist; Admitting Provider Hospitalist; PCP Internal Medicine; Visit Provider Nurse Practitioner Family | DX: K68.3 Retroperitoneal hematoma (principal); Z98.890 Other specified postprocedural states | CPT/HCPCS: 99223; 99239; 99499 ==

== ENCOUNTER 2024-11-27 09:11 | Outpatient (REF) | payer BC, SELFPAY ==
--- OUTSIDE RECORDS SUMMARY | 2024-11-27 09:13 | XMS_ITS | Patient Health Record ---
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 Name Role Phone Colt Teran MD Primary Care Provider Emiliano Chau Unavailable [phone] Allergies Allergen (clinical drug ingredient) Drug/Non Drug [...] Provider Speciality Internal M edicine Referred Organization [facility] Referred Provider Emiliano Herrera Referred Address [address] [place] [address], [address],[place], [place],[address], Referred Provider Specialty Gastroentero logy General Notes Dionne Ward 024 04:02:09 PM EDT > called [phone] to request an [facility] referral for visit [...] Problem Status W/U Status Risk Notes Problem 803018140 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 Problem 872987104 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) Active confirmed Problem 74831066 Acute gastric ulcer without hemorrhage or perforation (K25.3) Active confirmed Problem Chronic gastric ulcer with perforation (51477869) Chronic or unspecified gastric ulcer with perforation (K25.5) Active confirmed Problem 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) Polyp of stomach and duodenum (K31.7) Active confirmed Problem Duodenitis (07184764) Duodenitis (K29.80) Active confirmed Problem 79233015 Blood in stool (K92.1) Active confirmed Problem 201801115 Diverticulosis (K57.90) Active confirmed Problem 89832352 Heme + stool (R19.5) Active confirmed Problem 83611647 Hiatal hernia (K44.9) Active confirmed Problem 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) Gastric polyps (K31.7) Active confirmed Problem 031200949 Iron deficiency anemia due to chronic blood loss (D50.0) Active confirmed Problem 242113022 GERD with esophagitis (K21.0) Active confirmed Problem 60647614 UGI bleed (K92.2) Active confirmed Problem 548750871 Angiodysplasia o f colon (K55.20) Active confirmed Problem Hemorrhage of colon due to diverticulosis (369535417866803) Diverticulosis large intestine w/o perforation or abscess w/bleeding (K57.31) Active confirmed Problem Sevilla esophagus (601902086) 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) Active confirmed Problem Chronic gastritis (8078253) Chronic gastritis (K29.50) Active confirmed Problem 501238646 Anemia due to other cause, not classified (D64.89) Active confirmed Problem 865525343 Anemia due to acute blood loss (D62) Active confirmed Problem Gastroesophageal reflux disease with esophagitis (disorder) (571930495) Gastroesophageal reflux disease with esophagitis, unspecified whether hemorrhage (K21.00) Active confirmed Vital Signs Blood pressure diastolic 00 mm Hg 01/20/2024 Height 66.50 in 01/20/2024 Blood pressure systolic 00 mm Hg 01/20/2024 Weight 165 lbs 01/20/2024 BMI 26.23 kg/m2 01/20/2024 Encounters Encounter Location Date Provider Diagnosis [facility] [address] [place] [address] 01/20/2024 Emiliano Herrera Sevilla's esophagus without dysplasia [...] K22.70) Continue the same omeprazole and Sucralfate mcc. Overall, Sulema appears quite well. She has [...] ENDOSCOPY 02/20/2021 Next Appt Details Provider Name:Emiliano Chin Sharon , 01/19/2025 01:00:00 PM, [address] [place] [address], [address], [place], [address], Insurance Providers Payer Name Payer Address Payer Phone Subscriber Number Group Number Insured Name Patient Relationship to Insured Coverage Start Date Coverage End Date [facility] [employer] [address] [place] [address] [id number] [employer] SWIFT Self - patient is the insured Medical (General) History Medical History History ICD Code GERD with HH with long segme nt of Sevilla's esophagus diagnosed in 1994-most recent EGD was in 12/2016-no dysplasia hyperlipidemia hypertension fatty liver-neg w/u-Negative Hepatitis serologies and autoimmune studies--AST 36 and ALT 33, Iron sat 15% with an Iron of 60 in 07/2012 Denies [place],CVA,Lung disease,r enal disease--has had a heart murmur [...] -followed by --she is going to the [facility] in March of 2024 for further testing including a stress test with echocardiogram and either a MRI or CT scan of the heart Surgical History Surgery Date(Month/Year) appendectomy in December of 2010 complete hysterectomy
--- OUTSIDE RECORDS SUMMARY | 2024-11-27 09:13 | XMS_ITS | Clinical Summary ---
Author Organization [facility] Address [address] [id number] Phone Care Team Providers Care Security Team Lead Name Role Phone Colt Teran MD Primary Care Provider [phone] Allergies Active Allergy Reactions Criticality Noted Date [...] Active ferrous sulfate 325 mg (65 mg seminole iron) EC tablet 1 tablet Orally Once [...] 09/20/2024 10:20 AM EDT Office Visit [facility] [address] [address] Ángela Rodriguez CNP Encounter for removal of sutures (Primary Dx) 09/09/2024 9:50 AM EDT Office Visit [facility] at [address] [address] Ángela Rodriguez CNP Laceration of skin of [...] with no immediate complications Ángela Rodriguez CNP [place] [facility] F inal Result * LACERATION [...] Final Result from Last [address] [place] [address] [place] [address] Care Teams Security Team Lead Relationship Specialty Start Date End Date Colt Teran MD [address] [place] [address] [place] [address] PCP - General Internal Medicine 09/09/24 Additional Source Comments The information contained in this document represents components of the legal health record. It is not the complete legal health record.[facility]
[2024-11-27 09:33] LABS: MANUAL DIFF FLAG NO
[2024-11-27 11:24] LABS: Hematocrit 31.8 % (37.0-47.0); Hemoglobin 10.6 g/dl (12.0-16.0); Imm Gran Abs Auto 0.14 X10*3/uL (0.00-0.03); Imm Gran Pct Auto 0.9 % (0.0-0.4); Lymphocytes Absolute Auto 1.8 X10*3/uL (1.2-4.9); Mean Corpuscular HGB Conc 33.3 g/dl (31.0-35.0); Mean Corpuscular Hemoglobin 30.8 pg (27.0-33.0); Mean Corpuscular Volume 92.4 fL (80.0-98.0); NRBC Abs Auto 0.000 X10*3/uL (0.0-0.012); NRBC Pct Auto 0.0 /100WBC (0.0-0.2); Platelet Count 271 X10*3/uL (160-400); Red Blood Count 3.44 X10*6/uL (4.20-5.50); White Blood Count 16.0 X10*3/uL (4.8-10.8)
[2024-11-27 11:35] LABS: Appearance Urine Clear; Glucose Urine UA Negative (Negative); PH 6.0 (5.0-9.0); Specific Gravity - Urine 1.015 (1.005-1.025); UMIC TRIGGER UACC YES
[2024-11-27 11:41] LABS: UACC Culture Trigger YES
[2024-11-27 12:25] LABS: Alanine Aminotransferase 170 U/L (0-31); Albumin Level 3.5 g/dL (3.5-5.0); Alkaline Phosphatase 62 U/L (39-117); Anion Gap 13 (12-20); Aspartate Amino Transferase 127 U/L (5-31); Blood Urea Nitrogen 14 mg/dL (9-16); Calcium 8.8 mg/dL (8.4-10.2); Carbon Dioxide 22 mmol/L (22-29); Chloride 100 mmol/L (96-108); Cholesterol 142 mg/dL (<200); Estimated Glomerular Filt Rate > 60; HDL Cholesterol 38 mg/dL (>40); Potassium 4.4 mmol/L (3.3-5.1); Sodium 131 mmol/L (135-145); Total Protein 6.0 g/dL (6.5-8.0); Triglycerides 94 mg/dL (<150)
[2024-11-27 12:48] LABS: Folate 7.0 ng/mL (> or = 4.0); Vitamin B12 1080 pg/mL (200-900)
[2024-11-27 14:34] LABS: Free T4 (Free Thyroxine) 1.30 ng/dL (0.71-1.85)
== END 2024-11-27 09:12 | disposition home or self-care (01) ==
LOC: HO.LAB 09:11
PROVIDERS: Absent Provider Internal Medicine; PCP Internal Medicine; Visit Provider Hospitalist
DX: E53.8 Deficiency of other specified B group vitamins (principal); D64.9 Anemia, unspecified; E78.00 Pure hypercholesterolemia, unspecified; E55.9 Vitamin D deficiency, unspecified
CPT/HCPCS: 36415; 80053; 80061; 81001; 82306; 82607; 82746; 84439; 84443; 85025; 87086

== ENCOUNTER 2024-12-02 09:22 | Outpatient (AMB) | payer BC, SELFPAY ==
--- NOTE | 2024-12-02 09:42 | A.OFFPC_ITS ---
Vital Signs 12/02/24 09:43 Height 5 ft 5 in Weight 157 lb 6 oz BMI 26.2 BP 146/78 H Blood Pressure Location Lt brachial Position Sitting Pulse 79 Pulse Source Pulse Oximeter Pulse Oximetry (%) 97 Oxygen Delivery Method Room Air Intake Visit Reasons: f/u medication Scale Agent Required: No Accompanied by: Self / Same As Patient Allergies enflurane (ENFLURANE) Allergy (Severe, Verified 12/02/24 10:30) Per Patient Liver toxicity piperacillin (Zosyn) Allergy (Severe, Verified 12/02/24 10:30) Rash tazobactam (Zosyn) Allergy (Severe, Verified 12/02/24 10:30) Rash Medication List - Last Reconciled 12/02/24 by Colt Teran MD amiodarone 200 mg PO DAILY atorvastatin 10 mg PO BEDTIME cholecalciferol (vitamin D3) 25 mcg PO DAILY 90 days cyanocobalamin (vitamin B-12) (Vitamin B-12) 1,000 mcg PO MOTH diltiazem HCl CD 240 mg See Protocol PO DAILY 90 days Eliquis (apixaban) 2.5 mg PO BID 90 days NS Held on 11/24/24. Instructions: Resume on 12/08/24. Follow up with primary care provider. Follow up with Interventional Radiology (Dr. Isbell) estradiol 0.01%(0.1mg/gram) 2 grams vaginal Q48H PRN ferrous sulfate 325 mg PO BID [FRONT-WHEELED WALKER As directed ; Ht = 5'6 ; Wt = 164 lbs; Rx is for INDEFINITE/PERMANENT/FOREVER/LIFETIME USE] lorazepam 0.5 mg PO BID PRN omeprazole 40 mg PO DAILY@0630 raloxifene 60 mg PO DAILY 90 days [SHOWER CHAIR As directed; Rx is for INDEFINITE/PERMANENT/FOREVER/LIFETIME USE] sucralfate (Carafate) 1 g PO QIDACHS 30 days tramadol 50 mg PO TID PRN 10 days Tobacco use date assessed: 12/02/24 Fall risk assessment: 2 + Falls in past year Last assessed Fall Risk: 12/02/24 Dental Screening Dental Screen Date: 12/02/24 Did you have a dental visit in the last 12 months?: Yes Did you have a dental problem in the last 6 months where you did not have access to dental care?: No Was dental information given to patient?: Patient has dentist HPI f/u medication HPI Details Patient comes in today for her HDF follow up visit She underwent CT-guided cryoablation of her right renal mass last week and subsequently developed some retroperitoneal bleeding (her hemoglobin apparently dropped from 14 g/dL to 11.7 g/dl post renal mass ablation) and patient was admitted to the hospital overnight for close monitoring as a precaution Patient's H/H remained stable while she was in the hospital and she did not require any blood transfusion and she was eventually discharged home the following day in a stable condition Patient states that she has had no acute issues since her discharge from the hospital last week although she is currently still reporting (+) recurrent pain over her right flank area States that her pain sometimes gets severe enough to keep her up at night and that Tylenol has not been helping her too much lately States that she has had to use a walker when she is moving around lately to help steady herself and to minimize aggravating her right flank pain Her Eliquis has been on hold since last week prior to her CT-guided cryoablation and she has not gone back on it yet She denies any fever, headaches or dizziness Denies any chest pains, no increased shortness of breath No nausea/vomiting, no abdominal pain No change in bowel habits noted She had some follow-up labs done a few days ago and is scheduled to have her CBC rechecked again this coming weekend [facility] Medical History Degenerative joint disease of thoracic spine Gastrointestinal bleed Paroxysmal atrial fibrillation Afib Hypertrophic cardiomyopathy Atrial fibrillation with RVR Anemia Gastric ulcer History of blood transfusion Vitamin B12 deficiency Overweight (BMI 25.0-29.9) Primary osteoarthritis of hand Vitamin D deficiency Osteopenia Anemia Cardiac murmur Hiatal hernia Sevilla's esophagus Benign essential hypertension Pure hypercholesterolemia Surgical History H/O colonoscopy History of esophagogastroduodenoscopy (EGD) History of appendectomy History of hysterectomy Family History Father Hypertension Mother Stroke Social History Household Members: None Housing: House Are you a primary child day care provider to a significant other at home: No Do you presently have visiting nurse or other home services: No Alcohol intake: never Patient Tobacco Use Status: Former Tobacco user e-Cigarette/Vaping Use: Never Used Second Hand Smoke Exposure: No Advance Directives Date on File: 01/22/21 service: No Current occupational status: retired Cognitive needs: Yes (walker, cane) Hearing needs: No Vision needs: Yes (glasses) Questionnaire PHQ-9 Over the last 2 weeks, how often have you been bothered by any of the following problems? 1. Little interest or pleasure in doing things: not at all 2. Feeling down, depressed, or hopeless: not at all 3. Trouble falling or staying asleep, or sleeping too much: several days 4. Feeling tired or having little energy: several days 5. Poor appetite or overeating: not at all 6. Feeling bad about yourself - or that you are a failure or have let yourself or your family down: not at all 7. Trouble concentrating on things, such as reading the newspaper or watching television: not at all 8. Moving or speaking so slowly that other people could have noticed. Or the opposite - being so fidgety or restless that you have been moving around a lot more than usual: not at all 9. Thoughts that you would be better off or of hurting yourself in some way: not at all Total score: 2 Depression Screening Interpretation: Negative Depression Screening Done: Yes 20993 - PHQ-9 Billing: Yes Source: Developed by Drs. Emiliano Ferrari, Laura Barlow, Nico Ely and colleagues, with an educational florentino from [employer]. Thrive Questionnaire Date Thrive assessed: 12/02/24 I am a: Patient What is your living situation today?: I have a steady place to live Within the past 12 months, did the food you bought not last and you didn't have the money to get more?: Never true Within the past 12 months, did you worry whether your food would run out before you got money to buy more?: Never true Do you have trouble paying for medicines?: No Do you have trouble getting transportation to medical appointments?: No Do you have trouble paying your heating and electricity bill?: No Do you have trouble taking care of your child, family member or friend?: No Do you have trouble with day-to-day activities such as bathing, preparing meals, shopping, managing finances, etc.?: No Are you currently unemployed and looking for a job?: No Are you interested in more education?: No Please select the resources that you would like help with: None Currently or been in a relationship where the following occur: No concerns reported THRIVE Score: 0 AUDIT C Alcohol Use Questionnaire (AUDIT-C) 1. How often do you have a drink containing alcohol?: Never 3. How often do you have six or more drinks on one occasion?: Never Total Score: 0 Score Reviewed/Action Taken: Yes JULIA-7 AMB Questionnaire JULIA-7 Date JULIA - 7 assessed: 12/02/24 Feeling nervous, anxious, or on edge: 1 = Several days Not being able to stop or control worryin = Several days Worrying too much about different things: 1 = Several days Trouble relaxin = Several days Being so restless that it is hard to sit still: 0 = Not at all Becoming easily annoyed or irritable: 0 = Not at all Feeling afraid as if something awful might happen: 0 = Not at all Total JULIA-7 score (0-4 normal; 5-9 mild; 10-14 moderate; 15-21 severe): 4 Source: Developed by Drs. Emiliano Ferrari, Laura Barlow, Nico Ely and colleagues, with an educational florentino from [employer]. Review of Systems Const Denies chills, Denies fatigue, Denies fever(s) and Denies headache(s) ENT Denies dysphagia, Denies dizziness, Denies otalgia, Denies headache(s), Denies neck pain, Denies odynophagia and Denies sore throat Card Denies chest pain, Denies palpitations and Denies dyspnea Resp Denies chest congestion, Denies cough and Denies dyspnea GI Denies abdominal pain, Denies constipation, Denies dysphagia, Denies heartburn, Denies diarrhea, Denies nausea, Denies odynophagia and Denies vomiting Reports hematuria, Denies difficulty voiding, Denies nocturia, Denies dysuria and Denies urinary urgency Musc Reports back pain (over the right flank), Denies arthralgias and Denies neck pain Skin/Breast Denies rash Neuro Denies dizziness, Denies headache(s) and Reports paresthesias (on and off in the fingers and toes bilaterally) Psych Reports anxiety Endo Denies fatigue and Denies palpitations Physical exam (Primary Care) Vital Signs: Last Vital Signs Pulse 79 12/02/24 09:43 BP 146/78 H 12/02/24 09:43 Pulse Ox 97 12/02/24 09:43 Oxygen Delivery Method Room Air 12/02/24 09:43 BMI result Body Mass Index 26.2 Tobacco/Smoking Status: Tobacco use Status Tobacco use date assessed 12/02/24 12/02/24 09:49 Patient Tobacco Use Status Former Tobacco user 12/02/24 09:49 e-Cigarette/Vaping Use Never Used 12/02/24 09:49 PHQ-9: PHQ-9 Score PHQ-9: Total score 2 12/02/24 18:51 Depression Screening Interpretation: Negative Thrive Assessment: Date of Thrive Assessment Date Thrive assessed 12/02/24 12/02/24 09:49 Currently or been in a relationship where the following occur: No concerns reported Const General: no acute distress and alert HENMT Throat: Yes posterior oropharynx normal and Yes tonsils normal (no TP congestion) Neck Neck: Yes supple and No lymphadenopathy Thyroid: Thyroid normal Resp Auscultation: clear to auscultation bilaterally, no rales and no wheezes Cardio Rate: regular rate Rhythm: regular rhythm Heart sounds: Murmur heart sound present systolic soft, III/ and at the apex GI Palpation (GI): Soft to palpation and nontender Auscultation: normal bowel sounds General: Yes CVA tenderness on the right Back/Spine/Pelvis Back: CVA tenderness Thoracic/Lumbar Spine: thoracic spinal tenderness Skin Rashes: no rashes Extrem General: Yes no clubbing, cyanosis or edema Results Reviewed Results Reviewed: Laboratory Tests 11/27/24 11/27/24 09:25 09:31 WBC 16.0 H Hgb 10.6 L Hct 31.8 L Plt Count 271 Immature Gran % (Auto) 0.9 H Neut % (Auto) 78.6 H Abs Immat Gran (auto) 0.14 H Absolute Neuts (auto) 12.6 H Sodium 131 L Potassium 4.4 Creatinine 0.89 Estimated GFR > 60 Fasting Glucose 72 Calcium 8.8 D AST 127 H ALT 170 H Triglycerides 94 Cholesterol 142 LDL Cholesterol, Calc 86 HDL Cholesterol 38 L Vitamin B12 1080 H 25-OH Vitamin D Total 30.0 TSH 4.85 H Free T4 1.30 Ur Specific [place] 1.015 Urine Protein 100 (2+) H Urine Glucose (UA) Negative Urine Blood Moderate (2+) H Urine Nitrite Negative Ur Leukocyte Esterase Moderate (2+) H Coding Level of Care Code Est Pt Level 4 (07813) Diagnoses Renal mass, right N28.89 Anemia due to acute blood loss D62 Anemia type: other cause Other causes of anemia: acute posthemorrhagic Right flank pain R10.9 Elevated LFTs R79.89 Paroxysmal atrial fibrillation I48.0 Pure hypercholesterolemia E78.00 Benign essential hypertension I10 Hypertrophic cardiomyopathy I42.2 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 K31.811 GI bleed type/associated pathology: angiodysplasia of stomach and duodenum Osteopenia, unspecified location M85.80 Osteopenia location: unspecified Vitamin D deficiency E55.9 Osteoarthritis of thoracic spine, unspecified spinal osteoarthritis complication status M47.814 Spinal osteoarthritis complication: unspecified spinal osteoarthritis Vitamin B12 deficiency E53.8 Elevated TSH R79.89 Additional Codes PHQ-9 - 03651 - PHQ-9 Billing: Yes ([id number]) Assessment & Plan Assessment & Plan (1) Renal mass, right: Code(s): N28.89 - Other specified disorders of kidney and ureter Category: Medical Plan: S/P CT-guided cryoablation last week Discussed with patient that her right renal mass was most likely a renal cell carcinoma and that cryoablation would be curative She is presently still experiencing right flank pain, which is expected Follow up with urology and interventional radiology as scheduled (2) Anemia: Code(s): D64.9 - Anemia, unspecified Category: Medical Qualifiers: Anemia type: other cause Other causes of anemia: acute posthemorrhagic Qualified Code(s): D62 - Acute posthemorrhagic anemia Plan: Patient reportedly developed some retroperitoneal bleeding (her hemoglobin dropped from 14 g/dL to 11.7 g/dl after her renal mass ablation) and she was admitted to the hospital overnight as a precaution and for close monitoring Patient's H/H remained stable while she was in the hospital and she did not require any blood transfusion Her H/H was at 10.6/31.8 when last checked this past Friday Patient will be rechecking her H/H and labs again this coming for follow up (3) Right flank pain: Code(s): R10.9 - Unspecified abdominal pain Category: Medical Plan: This is likely a result of her renal mass cryoablation last week As OTC Tylenol has not been helping her too much lately, will start her on some Tramadol 50 mg TID PRN - she is cautioned that this Rx may make her feel tired and drowsy so she should exercise caution when she is taking it so as to avoid any falls or injuries She currently still has (+) dressing in place over her right flank - dressing appears intact and clean with no drainage Follow up with urology as scheduled early next week (4) Elevated LFTs: Code(s): R79.89 - Other specified abnormal findings of blood chemistry Category: Medical Plan: She is advised that her LFTs went up significantly after recent cryoablation and although they have come down since and are lower on her recent labs, they are still elevated at over 100 U/L Have advised patient to hold her Atorvastatin at this time and I will also have her recheck her LFTs when she goes for her follow-up labs this weekend (5) Paroxysmal atrial fibrillation: Code(s): I48.0 - Paroxysmal atrial fibrillation Category: Medical Plan: Patient currently remains in sinus rhythm - she was cardioverted on Amiodarone Continue Amiodarone 200 mg QD and Dilitiazem ER 240 mg QD She was on Eliquis for thromboembolism prophylaxis but this was discontinued for some time a couple of years ago due to GI bleeding; she has since gone back on Eliquis 2.5 mg BID but this is now on HOLD following her cryoablation of her right renal mass last week Because of her GI bleeding and anemia, she has been advised in the past to consider getting a Watchman device to obviate her need for long-term anticoagulation but she has decided against it after giving it some thought States that Dr. Funk is considering referring her to the [facility] for f urther evaluation as he feels that patient's hypertrophic cardiomyopathy is getting worse recently Follow up with cardiology as scheduled (6) Pure hypercholesterolemia: Code(s): E78.00 - Pure hypercholesterolemia, unspecified Category: Medical Plan: Results of her labs done last week reviewed and discussed with patient - her cholesterol numbers remain at or near goal Reinforced low cholesterol diet She has been taking Atorvastatin 10 mg QD but will have her HOLD this for now due to her elevated LFTs If her LFTs have improved further when patient goes for her repeat labs this weekend, then will instruct her to go back on her cholesterol Rx (7) Benign essential hypertension: Code(s): I10 - Essential (primary) hypertension Category: Medical Plan: Reinforced low sodium diet - goal is systolic BP of at least 130 to 140 mm or less Continue Diltiazem ER 240 mg QD (was on Amlodipine 2.5 mg QD in the past but this was stopped when she was started on Diltiazem) (8) Hypertrophic cardiomyopathy: Code(s): I42.2 - Other hypertrophic cardiomyopathy Category: Medical Plan: Her last recorded echocardiogram done here at [facility] in June 2022 revealed a hyperdynamic left ventricular systolic function, with the visually estimated ejection fraction at >70%. The left atrium is severely dilated and evidence suggests grade II (moderate) diastolic dysfunction Patient has more recent echocardiograms done with Dr. Funk and we will try to obtain copies of these for documentation Dr. Funk is reportedly considering referring patient to the [facility] for further evaluation as he feels that patient's hypertrophic cardiomyopathy is getting worse recently She is currently scheduled to have echocardiogram, stress testing and cardiac MRI done at the [facility] sometime in November 2024 (9) Gastrointestinal bleed: Code(s): K92.2 - Gastrointestinal hemorrhage, unspecified Category: Medical Qualifiers: GI bleed type/associated pathology: angiodysplasia of stomach and duodenum Qualified Code(s): K31.811 - Angiodysplasia of stomach and duodenum with bleeding Plan: Resolved with no recurrence EGD done on 06/24/22 and 06/27/22 revealed (+) ulcerated gastric mass and Bx done on 06/27/22 came out benign - was a hyperplastic mucosal polyp with background mild chronic inactive inflammation with no H pylori Continue Omeprazole 40 mg QD and Carafate 1 gm QID Follow up with GI as scheduled (10) Osteopenia: Code(s): M85.80 - Other specified disorders of bone density and structure, unspecified site Category: Medical Qualifiers: Osteopenia location: unspecified Qualified Code(s): M85.80 - Other specified disorders of bone density and structure, unspecified site Plan: Continue Raloxifene 60 mg QD Repeat BMD done on 10/07/2018 showed no significant change in BMD from 04/2014 - will continue to monitor every few years Patient is encouraged again to continue to stay active and exercise regularly as tolerated (11) Vitamin D deficiency: Code(s): E55.9 - Vitamin D deficiency, unspecified Category: Medical Plan: Continue Vitamin D3 1000 units QD (12) Degenerative joint disease of thoracic spine: Code(s): M47.814 - Spondylosis without myelopathy or radiculopathy, thoracic region Category: Medical Qualifiers: Spinal osteoarthritis complication: unspecified spinal osteoarthritis Qualified Code(s): M47.814 - Spondylosis without myelopathy or radiculopathy, thoracic region Plan: Thoracic spine x-rays done last year revealed (+) advanced multilevel degenerative changes in the thoracic spine Have advised patient on some back exercises that she can do on her own to help manage her back pain Advised that if she does not experience any relief with these, we can refer her to physical therapy for further management. (13) Vitamin B12 deficiency: Code(s): E53.8 - Deficiency of other specified B group vitamins Category: Medical Plan: Continue Vitamin B12 1000 mcg 1 tablet 2 to 3 times a week She was previously advised to lower her Vitamin B12 1000 mcg tablets intake as her level was very high - this has improved back to normal since then (14) Elevated TSH: Code(s): R79.89 - Other specified abnormal findings of blood chemistry Category: Medical Plan: Her TSH is again slightly elevated on her recent labs; her free T4 remains normal Patient is clinically euthyroid at present Will continue to monitor her TFTs regularly Plan Follow up as scheduled in 3 weeks (12/21/2024) Orders: Orders Complete Blood Count Auto Diff 12/04/24 D64.9 - Anemia, unspecified, K92.2 - Gastrointestinal hemorrhage, unspecified Liver Panel 12/04/24 R79.89 - Other specified abnormal findings of blood chemistry Comprehensive Met. Panel 12/04/24 R79.89 - Other specified abnormal findings of blood chemistry Medications: New tramadol 50 mg PO TID PRN 30 tabs 0RF pain 10 days On Hold atorvastatin (Lipitor) Hold Comment: elevated LFTs 10 mg PO BEDTIME 90 tabs 1RF 90 days
[2024-12-02 09:43] VITALS: BP 146/78; PULSE 79; O2SAT 97; BMI 26.2
--- OUTSIDE RECORDS SUMMARY | 2024-12-02 10:53 | XMS_ITS | Clinical Summary ---
Author Organization [facility] Address [address] [phone] Phone Care Team Providers Care Coiled Tubing Operator Name Role Phone Colt Teran MD Primary Care Provider [phone] Allergies Active Allergy Reactions Criticality Noted Date [...] Active ferrous sulfate 325 mg (65 mg [place] iron) EC tablet 1 tablet Orally Once [...] 09/20/2024 10:20 AM EDT Office Visit [facility] at [address] [address] Ángela Rodriguez CNP Encounter for removal of sutures (Primary Dx) 09/09/2024 9:50 AM EDT Office Visit [facility] at [address] [address] Ángela Rodriguez CNP Laceration of skin of [...] SCREENING 1956 OSTEOPOROSIS SCREENING INITIAL (ONE-TIME) 01/08/2009 INFLUENZA VACCINE (#1) 2024 , 12/20/2022, 12/24/2021, Additional history exists Adult Td,Tdap Booster 01/01/2033 01/01/2023 RSV VACCINE [...] with no immediate complications Ángela Rodriguez CNP [facility] F inal Result * LACERATION REPAIR (09/09/2024 10:44 AM EDT) Other Narrative Ángela Rodriguez CNP - 09/09/2024 10:44 AM EDT Ángela Rodriguez CNP 09/09/2024 11:01 AM Laceration/Wound Repair Date/Time: 09/09/2024 10:44 AM Performed by: Ánegla Rodriguez CNP Authorized by: Ángela Rodriguez CNP [...] Final Result from Last [address] [place] [address] Care Teams Coiled Tubing Operator Relationship Specialty Start Date End Date Colt Teran MD [address] [place] [address] [place] [id number] PCP - General Internal Medicine 09/09/24 Additional Source Comments The information contained in this document represents components of the legal health record. It is not the complete legal health record.[facility]
--- OUTSIDE RECORDS SUMMARY | 2024-12-02 10:53 | XMS_ITS | Patient Health Record ---
Author Organization [facility] Address [address] [place] [address] Care Team Providers Care Motor Assembly Supervisor Name Role Phone Colt Teran MD Primary Care Provider Emiliano Chau Unavailable [phone] Allergies Allergen (clinical drug ingredient) Drug/Non Drug [...] Speciality Internal M edicine Referred Organization [facility] Referred Provider Emiliano Herrera Referred Address [address] [place] [address], [address],[place], [place],[address], Referred Provider Specialty Gastroentero logy General Notes Dionne Ward 024 04:02:09 PM EDT > called [phone] to request an [facility] blue referral for visit with Dr. 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) Active confirmed Problem 73991466 Acute gastric ulcer without hemorrhage or perforation (K25.3) Active confirmed Problem Chronic gastric ulcer with perforation (47862269) Chronic or unspecified gastric ulcer with perforation (K25.5) Active confirmed Problem Benign neoplasm of stomach (96886794) Polyp of stomach and duodenum (K31.7) Active confirmed Problem Duodenitis (91691165) Duodenitis (K29.80) Active confirmed Problem 36123180 Blood in stool (K92.1) Active confirmed Problem 743545018 Diverticulosis (K57.90) Active confirmed Problem 12763883 Heme + stool (R19.5) Active confirmed Problem 38926134 Hiatal hernia (K44.9) Active confirmed Problem Benign neoplasm of stomach (87876643) Gastric polyps (K31.7) Active confirmed Problem 078704303 Iron deficiency anemia due to chronic blood loss (D50.0) Active confirmed Problem 613696680 GERD with esophagitis (K21.0) Active confirmed Problem 14439431 UGI bleed (K92.2) Active confirmed Problem 790791987 Angiodysplasia o f colon (K55.20) Active confirmed Problem Hemorrhage of colon due to diverticulosis (951170888630520) Diverticulosis large intestine w/o perforation or abscess w/bleeding (K57.31) Active confirmed Problem Sevilla esophagus (665107947) 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) Active confirmed Problem Chronic gastritis (3307500) Chronic gastritis (K29.50) Active confirmed Problem 295607940 Anemia due to other cause, not classified (D64.89) Active confirmed Problem 706849646 Anemia due to acute blood loss (D62) Active confirmed Problem Gastroesophageal reflux disease with esophagitis (disorder) (027419593) Gastroesophageal reflux disease with esophagitis, unspecified whether hemorrhage (K21.00) Active confirmed Vital Signs Blood pressure diastolic 00 mm Hg 01/20/2024 Height 66.50 in 01/20/2024 Blood pressure systolic 00 mm Hg 01/20/2024 Weight 165 lbs 01/20/2024 BMI 26.23 kg/m2 01/20/2024 Encounters Encounter Location Date Provider Diagnosis [facility] [address] [place] [address] 01/20/2024 Emiliano Herrera Sevilla's esophagus without dysplasia [...] Continue the same omeprazole and Sucralfate buttermaker continuous churn. Overall, Sulema appears quite well. She has [...] Name:Emiliano Chin Sharon , 01/19/2025 01:00:00 PM, [address] [place] [address], [address], [place], [address], Insurance Providers Payer Name Payer Address Payer Phone Subscriber Number Group Number Insured Name Patient Relationship to Insured Coverage Start Date Coverage End Date [facility] PROFESSIONAL CLAIMS [address] [place] [address] [id number] SULEMA SWIFT Self - patient is the insured Medical (General) History Medical History History ICD Code GERD with HH with long segme nt of Sevilla's esophagus diagnosed in 1994-most recent EGD was in 12/2016-no dysplasia hyperlipidemia hypertension fatty liver-neg w/u-Negative Hepatitis serologies and autoimmune studies--AST 36 and ALT 33, Iron sat 15% with an Iron of 60 in 07/2012 Denies [place],CVA,Lung disease,r enal disease--has had a heart murmur [...] -followed by --she is going to the [facility] clinic in March of 2024 for further testing including a stress test with echocardiogram and either a MRI or CT scan of the heart Surgical History Surgery Date(Month/Year) appendectomy in December of 2010 complete hysterectomy
== END 2024-12-02 10:31 | disposition home or self-care (01) ==
LOC: HO.HMCH 09:23
PROVIDERS: PCP Internal Medicine; Visit Provider Internal Medicine
DX: I48.0 Paroxysmal atrial fibrillation (principal); I42.2 Other hypertrophic cardiomyopathy; N28.89 Other specified disorders of kidney and ureter; D62 Acute posthemorrhagic anemia; R10.9 Unspecified abdominal pain; R79.89 Other specified abnormal findings of blood chemistry; E78.00 Pure hypercholesterolemia, unspecified; I10 Essential (primary) hypertension; K31.811 Angiodysplasia of stomach and duodenum with bleeding; M85.80 Other specified disorders of bone density and structure, unspecified site; E55.9 Vitamin D deficiency, unspecified

== ENCOUNTER → 2024-12-02 09:22 | Outpatient (BNVA) | payer BC, SELFPAY | PROVIDERS: PCP Internal Medicine; Visit Provider Internal Medicine | DX: N28.89 Other specified disorders of kidney and ureter (principal); D62 Acute posthemorrhagic anemia; R10.9 Unspecified abdominal pain; R79.89 Other specified abnormal findings of blood chemistry; I48.0 Paroxysmal atrial fibrillation; E78.00 Pure hypercholesterolemia, unspecified; I10 Essential (primary) hypertension; I42.2 Other hypertrophic cardiomyopathy; K31.811 Angiodysplasia of stomach and duodenum with bleeding; M85.80 Other specified disorders of bone density and structure, unspecified site; E55.9 Vitamin D deficiency, unspecified; M47.814 Spondylosis without myelopathy or radiculopathy, thoracic region; E53.8 Deficiency of other specified B group vitamins; R94.6 Abnormal results of thyroid function studies; Z79.899 Other long term (current) drug therapy; Z13.31 Encounter for screening for depression; Z13.39 Encounter for screening examination for other mental health and behavioral disorders | CPT/HCPCS: 96127 ==

== ENCOUNTER 2024-12-04 08:37 | Outpatient (REF) | payer BC, SELFPAY ==
--- OUTSIDE RECORDS SUMMARY | 2024-12-04 08:40 | XMS_ITS | Clinical Summary ---
Author Organization [facility] Address [address] [id number] Phone Care Team Providers Care Welt Trimming Machine Operator Name Role Phone Colt Teran MD Primary Care Provider [phone] Allergies Active Allergy Reactions Criticality Noted Date [...] Active ferrous sulfate 325 mg (65 mg kootenai iron) EC tablet 1 tablet Orally Once [...] Office Visit [facility] [address] [address] Ángela Rodriguez CNP Encounter for removal of sutures (Primary Dx) 09/09/2024 9:50 AM EDT Office Visit [facility] at [address] [address] Ángela Rodriguez CNP Laceration of skin of [...] with no immediate complications Ángela Rodriguez CNP MD MISCELLANEOUS SERVICES F inal Result * LACERATION [...] Final Result from Last [address] [address] [place] [address] * Guarantor: Kasey Sulema Account Type Relation to Patient Date of Phone Billing Address Personal/Family Self [address] Care Teams Welt Trimming Machine Operator Relationship Specialty Start Date End Date Colt Teran MD [address] [place] [address] [place] [address] PCP - General Internal Medicine 09/09/24 Additional Source Comments The information contained in this document represents components of the legal health record. It is not the complete legal health record.[facility]
--- OUTSIDE RECORDS SUMMARY | 2024-12-04 08:40 | XMS_ITS | Patient Health Record ---
Author Organization [facility] Address [address] [place] [address] Care Team Providers Care Show Jumping Instructor Name Role Phone Colt Teran MD Primary Care Provider Emiliano Chau Unavailable [phone] Allergies Allergen (clinical drug ingredient) Drug/Non Drug [...] Speciality Internal M edicine Referred Organization [facility] Referred Provider Emiliano Herrera Referred Address [address] [place] [address], [address],[place], [place],[address], Referred Provider Specialty Gastroentero logy General Notes Dionne Ward 024 04:02:09 PM EDT > called [phone] to request an [facility] blue referral for visit with Dr. 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) Active confirmed Problem 54203116 Acute gastric ulcer without hemorrhage or perforation (K25.3) Active confirmed Problem Chronic gastric ulcer with perforation (95603529) Chronic or unspecified gastric ulcer with perforation (K25.5) Active confirmed Problem Benign neoplasm of stomach (31186785) Polyp of stomach and duodenum (K31.7) Active confirmed Problem Duodenitis (87062185) Duodenitis (K29.80) Active confirmed Problem 87747532 Blood in stool (K92.1) Active confirmed Problem 267874791 Diverticulosis (K57.90) Active confirmed Problem 04877547 Heme + stool (R19.5) Active confirmed Problem 74051424 Hiatal hernia (K44.9) Active confirmed Problem Benign neoplasm of stomach (48641478) Gastric polyps (K31.7) Active confirmed Problem 592009312 Iron deficiency anemia due to chronic blood loss (D50.0) Active confirmed Problem 924823214 GERD with esophagitis (K21.0) Active confirmed Problem 20332255 UGI bleed (K92.2) Active confirmed Problem 013000690 Angiodysplasia o f colon (K55.20) Active confirmed Problem Hemorrhage of colon due to diverticulosis (429070969298912) Diverticulosis large intestine w/o perforation or abscess w/bleeding (K57.31) Active confirmed Problem Sevilla esophagus (647023181) 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) Active confirmed Problem Chronic gastritis (1376957) Chronic gastritis (K29.50) Active confirmed Problem 198729508 Anemia due to other cause, not classified (D64.89) Active confirmed Problem 931603439 Anemia due to acute blood loss (D62) Active confirmed Problem Gastroesophageal reflux disease with esophagitis (disorder) (462063317) Gastroesophageal reflux disease with esophagitis, unspecified whether hemorrhage (K21.00) Active confirmed Vital Signs Blood pressure diastolic 00 mm Hg 01/20/2024 Height 66.50 in 01/20/2024 Blood pressure systolic 00 mm Hg 01/20/2024 Weight 165 lbs 01/20/2024 BMI 26.23 kg/m2 01/20/2024 Encounters Encounter Location Date Provider Diagnosis [facility] [address] [place] [address] 01/20/2024 Emiliano Herrera Sevilla's esophagus without dysplasia [...] Name:Emiliano Chin Sharon , 01/19/2025 01:00:00 PM, [address] [place] [address], [address], [place], [address], Insurance Providers Payer Name Payer Address Payer Phone Subscriber Number Group Number Insured Name Patient Relationship to Insured Coverage Start Date Coverage End Date [facility] PROFESSIONAL CLAIMS [address] [place] [address] [id number] SULEMA SWIFT Self - patient is the insured Medical (General) History Medical History History ICD Code GERD with HH with long segme nt of Sevilla's esophagus diagnosed in 1994-most recent EGD was in 12/2016-no dysplasia hyperlipidemia hypertension fatty liver-neg w/u-Negative Hepatitis serologies and autoimmune studies--AST 36 and ALT 33, Iron sat 15% with an Iron of 60 in 07/2012 Denies [place],CVA,Lung disease,r enal disease--has had a heart murmur [...] -followed by --she is going to the [facility] clinic in March of 2024 for further testing including a stress test with echocardiogram and either a MRI or CT scan of the heart Surgical History Surgery Date(Month/Year) appendectomy in December of 2010 complete hysterectomy
[2024-12-04 08:46] LABS: MANUAL DIFF FLAG NO
[2024-12-04 09:53] LABS: Hematocrit 33.9 % (37.0-47.0); Hemoglobin 11.2 g/dl (12.0-16.0); Imm Gran Abs Auto 0.23 X10*3/uL (0.00-0.03); Imm Gran Pct Auto 1.8 % (0.0-0.4); Lymphocytes Absolute Auto 1.9 X10*3/uL (1.2-4.9); Mean Corpuscular HGB Conc 33.0 g/dl (31.0-35.0); Mean Corpuscular Hemoglobin 30.5 pg (27.0-33.0); Mean Corpuscular Volume 92.4 fL (80.0-98.0); NRBC Abs Auto 0.000 X10*3/uL (0.0-0.012); NRBC Pct Auto 0.0 /100WBC (0.0-0.2); Platelet Count 463 X10*3/uL (160-400); Red Blood Count 3.67 X10*6/uL (4.20-5.50); White Blood Count 12.8 X10*3/uL (4.8-10.8)
[2024-12-04 10:29] LABS: Albumin Level 3.6 g/dL (3.5-5.0); Alkaline Phosphatase 66 U/L (39-117); Anion Gap 17 (12-20); Aspartate Amino Transferase 115 U/L (5-31); Blood Urea Nitrogen 10 mg/dL (9-16); Calcium 8.9 mg/dL (8.4-10.2); Carbon Dioxide 25 mmol/L (22-29); Chloride 98 mmol/L (96-108); Estimated Glomerular Filt Rate > 60; Potassium 4.5 mmol/L (3.3-5.1); Sodium 135 mmol/L (135-145); Total Protein 6.1 g/dL (6.5-8.0)
[2024-12-04 10:45] LABS: Alanine Aminotransferase 131 U/L (0-31); Appearance Urine Clear; Glucose Urine UA Negative (Negative); PH 6.5 (5.0-9.0); Specific Gravity - Urine <= 1.005 (1.005-1.025); UMIC TRIGGER UACC YES
[2024-12-04 11:00] LABS: UACC Culture Trigger YES
== END 2024-12-04 08:38 | disposition home or self-care (01) ==
LOC: HO.LAB 08:37
PROVIDERS: PCP Internal Medicine; Visit Provider Internal Medicine
DX: R79.89 Other specified abnormal findings of blood chemistry (principal); D64.9 Anemia, unspecified; K92.2 Gastrointestinal hemorrhage, unspecified
CPT/HCPCS: 36415; 80053; 81001; 82248; 85025; 87086

== ENCOUNTER 2024-12-06 10:54 | Outpatient (REF) | payer BC, SELFPAY ==
--- OUTSIDE RECORDS SUMMARY | 2024-12-08 17:20 | XMS_ITS | Clinical Summary ---
Author Organization [facility] Address [address] [id number] Phone Care Team Providers Care Replenishment Buyer Name Role Phone Colt Teran MD Primary Care Provider [phone] Allergies Active Allergy Reactions Criticality Noted Date [...] Active ferrous sulfate 325 mg ([address] croix iron) EC tablet 1 tablet Orally Once [...] Office Visit [facility] at [address] [address] Ángela Rodriguez CNP Encounter for removal of sutures (Primary Dx) 09/09/2024 9:50 AM EDT Office Visit [facility] at [address] [address] Ánegla Rodriguez CNP Laceration of skin of right [...] with no immediate complications Ángela Rodriguez CNP [facility] F inal Result * LACERATION [...] procedure well with no immediate complications Ángela Rodriguze CNP PROCEDURE/MINOR SURGICAL OR DERABLES Final Result from Last [address] [place] [id number] Care Teams Replenishment Buyer Relationship Specialty Start Date End Date Colt Teran MD [address] [place] [address] [place] [address] PCP - General Internal Medicine 09/09/24 Additional Source Comments The information contained in this document represents components of the legal health record. It is not the complete legal health record.[facility]
--- OUTSIDE RECORDS SUMMARY | 2024-12-08 17:20 | XMS_ITS | Patient Health Record ---
Author Organization [facility] Address [address] [place] [address] Care Team Providers Care Manager Pulmonary Name Role Phone Jeffry [place], Colt Primary Care Provider Emiliano Chau Unavailable [phone] Allergies Allergen (clinical drug ingredient) Drug/Non Drug Allergy documented on EMR Reaction Allergy Type Onset Date Status ethrane (uncoded) Unknown Allergy Ac tive halothane (uncoded) Unknown Allergy Active enflurane (uncoded) Unknown Allergy Active piperacillin / tazobactam zosyn (uncoded) Unknown Allergy Active negran (uncoded) Unknown Allergy Act jose general anesthesia (uncoded) Unknown Allergy Active Reason For Referral No Information Medications Medication SIG (Take, Route, Frequency, Duration) [...] Problem Status W/U Status Risk Notes Problem 148266827 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 Problem 364764249 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) Active confirmed Problem 24062966 Acute gastric ulcer without hemorrhage or perforation (K25.3) Active confirmed Problem Chronic gastric ulcer with perforation (40638764) Chronic or unspecified gastric ulcer with perforation (K25.5) Active confirmed Problem Benign neoplasm of stomach (55995284) Polyp of stomach and duodenum (K31.7) Active confirmed Problem Duodenitis (88754093) Duodenitis (K29.80) Active confirmed Problem 57259949 Blood in stool (K92.1) Active confirmed Problem 810474356 Diverticulosis (K57.90) Active confirmed Problem 63370313 Heme + stool (R19.5) Active confirmed Problem 32979649 Hiatal hernia (K44.9) Active confirmed Problem Benign neoplasm of stomach (50832730) Gastric polyps (K31.7) Active confirmed Problem 340768541 Iron deficiency anemia due to chronic blood loss (D50.0) Active confirmed Problem 159960003 GERD with esophagitis (K21.0) Active confirmed Problem 98066777 UGI bleed (K92.2) Active confirmed Problem 110782765 Angiodysplasia o f colon (K55.20) Active confirmed Problem Hemorrhage of colon due to diverticulosis (063749639092660) Diverticulosis large intestine w/o perforation or abscess w/bleeding (K57.31) Active confirmed Problem Sevilla esophagus (446516041) 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) Active confirmed Problem Chronic gastritis (7640356) Chronic gastritis (K29.50) Active confirmed Problem 825494126 Anemia due to other cause, not classified (D64.89) Active confirmed Problem 205497199 Anemia due to acute blood loss (D62) Active confirmed Problem Gastroesophageal reflux disease with esophagitis (disorder) (515689500) Gastroesophageal reflux disease with esophagitis, unspecified whether hemorrhage (K21.00) Active confirmed Vital Signs Blood pressure diastolic 00 mm Hg 01/20/2024 Height 66.50 in 01/20/2024 Blood pressure systolic 00 mm Hg 01/20/2024 Weight 165 lbs 01/20/2024 BMI 26.23 kg/m2 01/20/2024 Encounters Encounter Location Date Provider Diagnosis [facility] [address] [place] [address] 01/20/2024 Emiliano Herrera Sevilla's esophagus without dysplasia [...] K22.70) Continue the same omeprazole and Sucralfate fpc. Overall, Sulema appears quite well. She has [...] Provider Name:Emiliano Herrera , 01/19/2025 01:00:00 PM, [address] [place] [address], [address], [place], [address], Insurance Providers Payer Name Payer Address Payer Phone Subscriber Number Group Number Insured Name Patient Relationship to Insured Coverage Start Date Coverage End Date [employer] CLAIMS [address] [place] [address] [id number] SULEMA OLIVER Self - patient is the insured Medical (General) History Medical History History ICD Code GERD with HH with long segme nt of Sevilla's esophagus diagnosed in 1994-most recent EGD was in 12/2016-no dysplasia hyperlipidemia hypertension fatty liver-neg w/u-Negative Hepatitis serologies and autoimmune studies--AST 36 and ALT 33, Iron sat 15% with an Iron of 60 in 07/2012 Denies [place],CVA,Lung disease,r enal disease--has had a heart murmur all of her life --she has had cardiac Echos Negative colonoscopy in 04/2002 and 4--2nd one was for anemia Pancreatitis in 2003 [...] -followed by --she is going to the [facility] in March of 2024 for further testing including a stress test with echocardiogram and either a MRI or CT scan of the heart Surgical History Surgery Date(Month/Year) appendectomy in December of 2010 complete hysterectomy
== END 2024-12-06 10:55 | disposition home or self-care (01) ==
LOC: HO.LNP 10:54
PROVIDERS: Visit Provider Nurse Practitioner Family
DX: R30.0 Dysuria (principal)
CPT/HCPCS: 88112

== ENCOUNTER 2024-12-06 10:54 | Outpatient (AMB) | payer BC, SELFPAY ==
--- NOTE | 2024-12-06 10:56 | A.OFFVIS_ITS ---
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 Instructions: elevated LFTs cholecalciferol (vitamin D3) 25 mcg PO DAILY 90 days cyanocobalamin (vitamin B-12) (Vitamin B-12) 1,000 mcg PO MOTH diltiazem HCl CD 240 mg See Protocol PO DAILY 90 days Eliquis (apixaban) 2.5 mg PO BID 90 days NS Held on 11/24/24. Instructions: Resume on 12/08/24. Follow up with primary care provider. Follow up with Interventional Radiology (Dr. Isbell) estradiol 0.01%(0.1mg/gram) 2 grams vaginal Q48H PRN ferrous sulfate 325 mg PO BID [FRONT-WHEELED WALKER As directed ; Ht = 5'6 ; Wt = 164 lbs; Rx is for INDEFINITE/PERMANENT/FOREVER/LIFETIME USE] lorazepam 0.5 mg PO BID PRN omeprazole 40 mg PO DAILY@0630 raloxifene 60 mg PO DAILY 90 days [SHOWER CHAIR As directed; Rx is for INDEFINITE/PERMANENT/FOREVER/LIFETIME USE] sucralfate (Carafate) 1 g PO QIDACHS 30 days tramadol 50 mg PO TID PRN 10 days HPI Comments Details: Sulema is an 79-year-old female patient of Dr. Teran who was accompanied by her significant other at today's office visit. She has a past medical history of recurrent urinary tract infections, degenerative disc disease of thoracic spine, paroxysmal AFib, hypertrophic cardiomyopathy, anemia, gastric ulcer, vitamin-D deficiency, osteoarthritis, hiatal hernia, cardiac murmur, anemia, osteopenia, Sevilla's esophagus, hypertension, and hypercholesteremia. She presents to the office today for follow-up. Of note, patient underwent CT- guided cryoablation of her right renal mass on 11/23/24. She subsequently developed the retroperitoneal bleed and was admitted at the hospital overnight for close monitoring and her H&H remained stable never requiring blood transfusion and she was eventually discharged home. In discussion with the patient today she reports having followed up with her PCP last week and having had recent labs done as she has not restarted anticoagulation due to decrease in H&H with retroperitoneal bleed. Labs are as follows: Hemoglobin: 12/16 14.1, 12/16 11.7, 12/16 11.6, 12/16 10.4, 12/16 11.0, 12/16 10.4, 12/16 10.6, 12/16 11.2 Hematocrit: 12/16 41.2, 12/16 34.8, 12/16 33.4, 12/16 30.2, 12/16 33.2, 12/16 30.3, 12/16 31.8, 12/16 33.9 During office visit today dressing was removed. There was no bleeding or drainage noted at the site nor on the dressing. There was erythema noted around the dressing site appearing as contact dermatitis due to Tegaderm. There were no visible open areas. There was faint ecchymosis area to the right flank area. She describes having taking Tylenol as needed for pain however has since discontinued this due to elevated liver enzymes and has been prescribed p.r.n. tramadol with PCP and feels this has been helpful. She does feel she continues to experience pain with sharp movements however describes these episodes as infrequent and does feel pain is significantly decreasing day-to-day. She also discussing having had to use her walker to get around as she has been feeling more steady when utilizing it. Unable to review pathology summary CT guided report notes: Successful CT-guided cryoablation of a right mid pole upper pole renal mass as described in detail above. This was a high risk mass for ablation given its central location and difficulty with visualization as well as history of Eliquis use (held). In office urinalysis results reviewed with the patient today. We did discussed worsening symptoms. Patient also with a longstanding history of recurrent urinary tract infections urine cultures are as follows: 04/17 E coli 07/16 mixed bacterial tani characteristics of urogenital contamination 11/15 50,000 to 100,000 cfu/ml Mixed bacterial tani characteristic of urogenital contamination. She currently denies any UTI like symptoms. She denies incontinence, nocturia, visible/gross hematuria, dysuria, foul smelling urine, changes to urinary stream, fever, and or chills. She is happy with her current voiding parameters. She discusses her frustration regarding delay in undergoing surgical procedure as well as education regarding risks and benefits of surgical intervention. All questions were answered to the best of my ability. We did discussed undergoing surveillance monitoring with interval imaging. She is agreeable. She otherwise offers no other issues or concerns at this time [facility] Medical History Degenerative joint disease of thoracic spine Gastrointestinal bleed Paroxysmal atrial fibrillation Afib Hypertrophic cardiomyopathy Atrial fibrillation with RVR Anemia Gastric ulcer History of blood transfusion Vitamin B12 deficiency Overweight (BMI 25.0-29.9) Primary osteoarthritis of hand Vitamin D deficiency Osteopenia Anemia Cardiac murmur Hiatal hernia Sevilla's esophagus Benign essential hypertension Pure hypercholesterolemia Surgical History H/O colonoscopy History of esophagogastroduodenoscopy (EGD) History of appendectomy History of hysterectomy Family History Father Hypertension Mother Stroke Social History Household Members: None Housing: House Are you a primary acute care registered nurse to a significant other at home: No Do you presently have visiting nurse or other home services: No Alcohol intake: never Patient Tobacco Use Status: Former Tobacco user e-Cigarette/Vaping Use: Never Used Second Hand Smoke Exposure: No Advance Directives Date on File: 01/22/21 service: No Current occupational status: retired Cognitive needs: Yes (walker, cane) Hearing needs: No Vision needs: Yes (glasses) Review of Systems Eyes Reports no additional complaints ENT Reports no additional complaints Card Reports as per HPI Resp Reports no additional complaints GI Reports as per HPI Reports as per HPI Musc Reports as per HPI Neuro Reports no additional complaints Psych Reports no additional complaints Endo Reports as per [facility] Basil/Lymph Reports as per [facility] Physical Exam Const General: cooperative, healthy appearing, comfortable, no acute distress, well developed, alert and awake Orientation/consciousness: patient oriented x3 Limitations: ambulation with walker HEENT Head: Yes normal to inspection, Yes normocephalic and Yes atraumatic Ears: hearing grossly normal bilaterally Eyes General: appearance normal, both eyes and all related structures Neck Neck: Yes normal visual inspection and Yes trachea midline Chest Chest palpation & inspection: normal inspection of the chest Resp Effort & Inspection: normal respiratory effort and able to speak in complete sentences Cardio Rate: regular rate GI Inspection: Yes normal to inspection Back/Spine/Pelvis Other: As per HPI Skin General skin exam: no rashes or lesions noted Neuro General: patient oriented x3 Extrem General: Yes normal to inspection Psych Appearance: grossly normal and well kempt Mental Status: mental status grossly normal Speech and movement: Normal speech and movement present and Clear speech present Affect: normal affect Attitude: cooperative Thought process: Normal thought process present Thought content: Normal thought content present Insight: Fair insight present (Psych) Judgement: Fair judgement present (Psych) Results AMB Urinalysis, Automated UA Leukoctes 70 Mookie/uL Last Edit by SHONNA Hector on 12/06/24 15:45 UA Nitrite Last Edit by SHONNA Hector on 12/06/24 15:45 UA Urobilinogen 0.2 mg/dL Last Edit by SHONNA Hector on 12/06/24 15:4 5 UA Protein 30 mg/dL Last Edit by SHONNA Hector on 12/06/24 15:45 UA pH 6.0 Last Edit by SHONNA Hector on 12/06/24 15:45 UA Blood 200 Orion/uL Last Edit by SHNONA Hector on 12/06/24 15:45 UA Specific [place] 1.010 Last Edit by SHONNA Hector on 12/06/24 15: 45 UA Ketone Last Edit by SHONNA Hector on 12/06/24 15:45 UA Bilirubin 0 mg/dL Last Edit by SHONNA Hector on 12/06/24 15:45 UA Glucose 0 mg/dL Last Edit by SHONNA Hector on 12/06/24 15:45 Results Reviewed Results Reviewed: Laboratory Last Values Urine pH (Auto) 6.0 12/06/24 15:44 Specific [place] (Auto) 1.010 12/06/24 15:44 Urine Protein (Auto) 30 mg/dL 12/06/24 15:44 Glucose (UA)(Auto) 0 mg/dL 12/06/24 15:44 Urine Blood (Auto) 200 Orion/uL 12/06/24 15:44 Urine Bilirubin (Auto) 0 mg/dL 12/06/24 15:44 Urine Urobilinogen (Auto) 0.2 mg/dL 12/06/24 15:44 Leukocyte Esterase (Auto) 70 Mookie/uL 12/06/24 15:44 Assessment & Plan Assessment & Plan (1) Renal mass, right: Code(s): N28.89 - Other specified disorders of kidney and ureter Category: Medical (2) S/P cryoablation of mass of kidney: Code(s): Z98.890 - Other specified postprocedural states Category: Surgical Plan In office urinalysis results reviewed with the patient today; as noted above; will send for urine cytology. Dressing was removed; no drainage noted. All questions were answered. We did discussed worsening symptoms. Will continue with surveillance monitoring at this time. Information provided regarding follow-up with Dr. Randolph. Continue to follow-up with PCP and cardiology as planned. Will obtain CT of the chest as well as CT renal mass protocol. Follow-up in 3 months with imaging to be completed prior; or sooner with any issues, concerns, and or questions. Orders: Orders Urine Cytology Today R31.9 - Hematuria, unspecified CT abdomen pelvis wo/w IV con 02/22/25 N28.89 - Other specified disorders of kidney and ureter, Z98.890 - Other specified postprocedural states CT chest wo/w IV con 02/22/25 N28.89 - Other specified disorders of kidney and ureter, Z98.890 - Other specified postprocedural states AMB Urinalysis Automated Today Z13.9 - Encounter for screening, unspecified Patient Instructions: The patient had an opportunity to ask questions regarding the treatment plan. All questions were answered. Physical exam, labs, and imaging were discussed and reviewed in detail. As well as risks, benefits, and discussion of treatment choices. No major barriers to understanding were identified. The patient expressed understanding and agreement with the above treatment plan. The patient was made aware they should contact our office by phone for worsening of their current condition, the appearance of new symptoms, or with any questions or concerns. Compliance is encouraged with any medications and follow up testing that is ordered. It is a privilege to be allowed the opportunity to participate in? your urological care.? Again, if you have any questions or concerns If you have any questions or concerns please do not hesitate to contact me. The office is [phone]. This note is constructed using voice recognition software. While every effort has been made to ensure accuracy hook tender errors may have been included. Yours sincerely, DAVID Ferguson Coding Level of Care Code Est Pt Level 4 (28986) Diagnoses Renal mass, right N28.89 S/P cryoablation of mass of kidney Z98.890 Time Spent (min) 45
--- OUTSIDE RECORDS SUMMARY | 2024-12-06 14:31 | XMS_ITS | Patient Health Record ---
Author Organization [facility] Address [address] [place] [address] Care Team Providers Care Senior Corporate Strategy Manager Name Role Phone Colt Teran MD Primary Care Provider Emiliano Chau Unavailable [phone] Allergies Allergen (clinical drug ingredient) Drug/Non Drug [...] Provider Speciality Internal M edicine Referred Organization [facility] Referred Provider Emiliano Herrera Referred Address [address] [place] [address], [address],[place], [place],[address], Referred Provider Specialty Gastroentero logy General Notes Dionne Ward 024 04:02:09 PM EDT > called [phone] to [facility] [place] for visit with Dr. 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) Polyp of stomach and duodenum (K31.7) Active confirmed Problem Duodenitis (45758211) Duodenitis (K29.80) Active confirmed Problem 90491626 Blood in stool (K92.1) Active confirmed Problem 626201357 Diverticulosis (K57.90) Active confirmed Problem 08778984 Heme + stool (R19.5) Active confirmed Problem 43587577 Hiatal hernia (K44.9) Active confirmed Problem Benign neoplasm of stomach (13430200) Gastric polyps (K31.7) Active confirmed Problem 514576900 Iron deficiency anemia due to chronic blood loss (D50.0) Active confirmed Problem 739685498 GERD with esophagitis (K21.0) Active confirmed Problem 78563280 UGI bleed (K92.2) Active confirmed Problem 284957232 Angiodysplasia o f colon (K55.20) Active confirmed Problem Hemorrhage of colon due to diverticulosis (247564672270340) Diverticulosis large intestine w/o perforation or abscess w/bleeding (K57.31) Active confirmed Problem Sevilla esophagus (515471601) 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) Active confirmed Problem Chronic gastritis (3518388) Chronic gastritis (K29.50) Active confirmed Problem 003462110 Anemia due to other cause, not classified (D64.89) Active confirmed Problem 799363048 Anemia due to acute blood loss (D62) Active confirmed Problem Gastroesophageal reflux disease with esophagitis (disorder) (894013298) Gastroesophageal reflux disease with esophagitis, unspecified whether hemorrhage (K21.00) Active confirmed Vital Signs Blood pressure diastolic 00 mm Hg 01/20/2024 Height 66.50 in 01/20/2024 Blood pressure systolic 00 mm Hg 01/20/2024 Weight 165 lbs 01/20/2024 BMI 26.23 kg/m2 01/20/2024 Encounters Encounter Location Date Provider Diagnosis [facility] [address] [place] [address] 01/20/2024 Emiliano Herrera Sevilla's esophagus without dysplasia [...] K22.70) Continue the same omeprazole and Sucralfate rn long term care. Overall, Sulema appears quite [...] Name:Emiliano Chin Sharon , 01/19/2025 01:00:00 PM, [address] [place] [address], [address], [place], [address], Insurance Providers Payer Name Payer Address Payer Phone Subscriber Number Group Number Insured Name Patient Relationship to Insured Coverage Start Date Coverage End Date [facility] PROFESSIONAL CLAIMS [address] [place] [address] [id number] SULEMA SWIFT Self - patient is the insured Medical (General) History Medical History History ICD Code GERD with HH with long segme nt of Sevilla's esophagus diagnosed in 1994-most recent EGD was in 12/2016-no dysplasia hyperlipidemia hypertension fatty liver-neg w/u-Negative Hepatitis serologies and autoimmune studies--AST 36 and ALT 33, Iron sat 15% with an Iron of 60 in 07/2012 Denies [place],CVA,Lung disease,r enal disease--has had a heart murmur [...] by --she is going to the [facility] clinic in March of 2024 for further testing including a stress test with echocardiogram and either a MRI or CT scan of the heart Surgical History Surgery Date(Month/Year) appendectomy in December of 2010 complete hysterectomy
--- OUTSIDE RECORDS SUMMARY | 2024-12-06 14:31 | XMS_ITS | Clinical Summary ---
Author Organization [facility] Address [address] [id number] Phone Care Team Providers Care Poultry Farm Supervisor Name Role Phone Colt Teran MD Primary Care Provider [phone] Allergies Active Allergy Reactions Criticality Noted Date [...] Active ferrous sulfate 325 mg (65 mg zuni iron) EC tablet 1 tablet Orally Once [...] Office Visit [facility] [address] [address] Ángela Rodriguez CNP Encounter for removal of sutures (Primary Dx) 09/09/2024 9:50 AM EDT Office Visit [facility] at [address] [address] Ángela Rodriguez CNP Laceration of skin of [...] with no immediate complications Ángela Rodriguez CNP [facility] F inal Result * LACERATION [...] Final Result from Last [address] [place] [id number] Care Teams Poultry Farm Supervisor Relationship Specialty Start Date End Date Colt Teran MD [address] [place] [address] [place] [address] PCP - General Internal Medicine 09/09/24 Additional Source Comments The information contained in this document represents components of the legal health record. It is not the complete legal health record.[facility]
== END 2024-12-06 11:54 | disposition home or self-care (01) ==
LOC: HO.HUSH 10:55
PROVIDERS: PCP Internal Medicine; Visit Provider Nurse Practitioner Family
DX: N28.89 Other specified disorders of kidney and ureter (principal); Z98.890 Other specified postprocedural states
CPT/HCPCS: 99214

== ENCOUNTER → 2024-12-06 10:54 | Outpatient (BNVA) | payer BC, SELFPAY | PROVIDERS: PCP Internal Medicine; Visit Provider Nurse Practitioner Family | DX: R31.9 Hematuria, unspecified (principal) | CPT/HCPCS: 81003 ==

== ENCOUNTER 2024-12-10 10:09 | Emergency (ER) | payer BC, SELFPAY ==
--- NOTE | ~2024-12-10 | CT_ITS ---
EXAMINATION: CT ABDOMEN AND PELVIS WITH CONTRAST CLINICAL INFORMATION: Right upper quadrant and right flank pain , cryoablation of mid to upper-right kidney presumed renal cell carcinoma November 23, 2024 COMPARISON: July 27, 2024 TECHNIQUE: Multidetector volumetric images were obtained from the superior aspect of the liver through the pubic symphysis following administration 85 mL of Omnipaque 350 intravenous contrast. Sagittal and coronal reformatted images were obtained on the technologist's workstation. Oral contrast: No This CT examination was performed using dose optimization techniques as appropriate, variously including the following: *Automated exposure control *Adjustment of mA and/or kV according to patient size (this includes techniques or standardized protocols for targeted exams where dose is matched to indication/reason for exam; i.e. extremities or head) *Use of iterative reconstruction technique FINDINGS: LUNG BASES: Pleural effusions are small, right greater than left. There is adjacent compressive atelectasis. There is focal oval lucency at the interface of atelectatic lung and pleural effusion on the left. Faint vascular structures are visible within it consistent with focally aerated lung rather than a small loculated pneumothorax. LIVER, GALLBLADDER, AND BILIARY TREE: Mild intramedullary biliary ductal dilation is present. The gallbladder contains high density in the neck region. There is no extra hepatic biliary ductal dilation. There is no gallbladder wall thickening. PANCREAS: Unremarkable. SPLEEN: Unremarkable. ADRENAL GLANDS: Unremarkable. KIDNEYS AND URETERS: Central mixed density is present in the right kidney measuring 4.9 cm long axis . The cephalad margin of the mass may still be present measuring 5 x 16 mm (CC by AP) at the superior cryoablation margin. There is air and perinephric fat stranding. There is a loculated fluid collection posterior the right kidney measuring 9.8 x 1.7 x 7.3 cm (CC by AP by transverse) likely representing seroma/hematoma rather than abscess. There is a similar collection extending inferolaterally from the area of cryoablation measuring 4.5 x 3.5 x 1.4 cm (CC by AP by transverse). Left kidney appears similar to the prior. BLADDER: Unremarkable. GASTROINTESTINAL TRACT: The small and large bowel are unremarkable. Surgical clips are seen in the region of the cecum likely from prior appendectomy. There is small amount of free fluid in pelvis. ABDOMINAL WALL: No significant hernia is appreciated. LYMPH NODES: Unremarkable. Abdominal wire a VASCULAR: Mild multifocal atherosclerotic changes are present. PELVIC VISCERA: Hysterectomy and probably bilateral oophorectomy has been performed. OSSEOUS STRUCTURES: Unremarkable. CT/CT abdomen pelvis w IV con IMPRESSION: There is intramedullary biliary ductal dilation and suspected cholelithiasis raising suspicion of an obstructed cystic duct resulting in biliary dilation. Currently, no gallbladder wall thickening is seen to suggest cholecystitis though there is risk of this developing in the future. Consider right upper quadrant ultrasound confirmation. Changes from cryoablation of the right mid to upper kidney presumed renal cell carcinoma. There is possibly a small rim of residual tumor at the cephalad margin of the cryoablation area (sagittal CT #8 79/111 ). However, there area is very ill-defined. Small bilateral pleural effusions, larger ON, with compressive atelectasis, most likely related to recent procedure. 2 loculated fluid collections are present in the right posterior lateral abdomen are most consistent with seroma/hematoma and less likely representing abscess. Fleischner guidelines were followed. Electronically signed by: Ludwig James MD 12/10/2024 03:09 PM EDT
--- NOTE | ~2024-12-10 | US_ITS ---
EXAMINATION: US ABDOMEN LIMITED CLINICAL INFORMATION: Right upper quadrant abdominal pain.. COMPARISON: None available. TECHNIQUE: Real-time imaging of the gallbladder and bile ducts was performed. FINDINGS: GALLBLADDER: The gallbladder is physiologically distended without evidence of stones, sludge, polyps, wall thickening or pericholecystic fluid. Negative sonographic Baker's sign. COMMON BILE DUCT: Normal in caliber measuring 0.3 cm in diameter. FREE FLUID: None. US/US abdomen limited IMPRESSION: Normal gallbladder and bile ducts. Electronically signed by: Bayron Post MD 12/10/2024 04:41 PM EDT
[2024-12-10 10:17] VITALS: BP 188/79; PULSE 73; RESP 16; TEMP 36.7; O2SAT 96; BMI 25.8
--- NOTE | 2024-12-10 10:18 | ED.GENADULT ---
HPI - General Adult General Chief complaint: General Medical Stated complaint: Pain Post Surgery 11/23/24 Time Seen by Provider: 12/10/24 11:43 Source: patient, RN notes reviewed and old records reviewed Mode of arrival: ambulatory Limitations: no limitations History of Present Illness ED Provider: Meliza HPI narrative: Patient is an 79-year old female with history of recurrent urinary tract infections, degenerative disc disease of thoracic spine, paroxysmal AFib, hypertrophic cardiomyopathy, anemia, gastric ulcer, vitamin-D deficiency, osteoarthritis, hiatal hernia, cardiac murmur, anemia, osteopenia, Sevilla's esophagus, hypertension, and hypercholesteremia presenting to the ED with complaint of right upper quadrant abdominal pain as well as ongoing right flank pain. She had recent CT-guided cryoablation of a R renal mass on 11/23/24. She developed a retroperitoneal bleed following the procedure and was admitted for close monitoring but did not require a transfusion. Had a follow up appointment with urology on 12/06. States that Wed night (12/08) she developed gripping RUQ abdominal pain which waxes and wanes, seems to be exacerbation by movement/reaching. Also still having R back/flank pain which has not seemed to improve since procedure. Reports mild nausea but denies vomiting. Denies any diarrhea or constipation. Denies hematuria, hematochezia or melena. Denies fevers. States that she has been having to use a walker at home which she does not typically use due to her pain. States that when the pain episodes come on, she needs the walker to steady herself. MD complaint: abdominal and flank pain Onset (ago): day(s) Related Data Home Medications ?Medication ?Instructions ?Recorded ?Confirmed omeprazole 40 mg capsule,delayed 40 mg PO DAILY@0630 08/10/21 12/06/24 release cyanocobalamin (vitamin B-12) 1,000 mcg PO MOTH 11/03/24 12/06/24 1,000 mcg tablet (Vitamin B-12) estradiol 0.01% (0.1 mg/gram) 2 g vaginal Q48H PRN 11/24/24 12/06/24 vaginal cream Itching/Burning Previous Rx's ?Medication ?Instructions ?Recorded cholecalciferol (vitamin D3) 25 25 mcg PO DAILY 90 days #90 caps 09/22/20 mcg (1,000 unit) capsule FRONT-WHEELED WALKER #1 ea 07/25/22 SHOWER CHAIR #1 ea 07/25/22 ferrous sulfate 325 mg (65 mg 325 mg PO BID #180 tabs 12/03/22 iron) tablet Eliquis 2.5 mg tablet (apixaban) 2.5 mg PO BID 90 days #180 tabs 12/05/23 Held on 11/24/24. Instructions: Resume on 12/08/24. Follow up with primary care provider. Follow up with Interventional Radiology (Dr. Isbell) amiodarone 200 mg tablet 200 mg PO DAILY #90 tabs 07/09/24 diltiazem HCl 240 mg 240 mg PO DAILY 90 days #90 caps 08/18/24 capsule,extended release 24 hr sucralfate 1 gram tablet (Carafate) 1 g PO QIDACHS 30 days #120 tabs 09/18/24 raloxifene 60 mg tablet 60 mg PO DAILY 90 days #90 tabs 10/26/24 lorazepam 0.5 mg tablet 0.5 mg PO BID PRN anxiety #30 tabs 11/04/24 atorvastatin 10 mg tablet (Lipitor) 10 mg PO BEDTIME 90 days #90 tabs 12/02/24 Held on 12/03/24. Instructions: elevated LFTs tramadol 50 mg tablet 50 mg PO TID PRN pain 10 days #30 12/02/24 tabs ondansetron 4 mg disintegrating 4 mg PO Q8H PRN nausea and 12/10/24 tablet vomiting #10 tabs Allergies Allergy/AdvReac Type Severity Reaction Status Date / Time enflurane (ENFLURANE) Allergy Severe Per Verified 12/10/24 10:20 Patient Liver toxicity piperacillin (Zosyn) Allergy Severe Rash Verified 12/10/24 10:20 tazobactam (Zosyn) Allergy Severe Rash Verified 12/10/24 10:20 Review of Systems Review of Systems: As per HPI Yes all other systems are reviewed and are negative Constitutional: Constitutional: Reports as per HPI [facility] Past Medical History Medical History Degenerative joint disease of thoracic spine Gastrointestinal bleed Paroxysmal atrial fibrillation Afib Hypertrophic cardiomyopathy Atrial fibrillation with RVR Anemia Gastric ulcer History of blood transfusion Vitamin B12 deficiency Overweight (BMI 25.0-29.9) Primary osteoarthritis of hand Vitamin D deficiency Osteopenia Anemia Cardiac murmur Hiatal hernia Sevilla's esophagus Benign essential hypertension Pure hypercholesterolemia Surgical History H/O colonoscopy History of esophagogastroduodenoscopy (EGD) History of appendectomy History of hysterectomy Family History Family History Father Hypertension Mother Stroke Social History Social History Household Members: None Housing: House Are you a primary career technology teacher to a significant other at home: No Do you presently have visiting nurse or other home services: No Alcohol intake: never Patient Tobacco Use Status: Former Tobacco user Smoked in Last 30 Days: No e-Cigarette/Vaping Use: Never Used Second Hand Smoke Exposure: No Use of substances other than those prescribed or required for medical reasons: No Advance Directives: Yes Advance Directives on File: Yes Advance Directives Date on File: 01/22/21 service: No Current occupational status: retired Cognitive needs: Yes (walker, cane) Hearing needs: No Vision needs: Yes (glasses) Physical Exam ED Vital Signs: Vital Signs - 24 hr 12/10/24 10:17 Temperature 98.1 F Pulse Rate 73 Respiratory Rate 16 Blood Pressure 188/79 H Pulse Oximetry 96 Oxygen Delivery Method Room Air BMI result Body Mass Index 25.8 Vital signs have been reviewed and appear to be correct. Blood pressure elevated. Heart rate normal. Respiratory rate normal. Temperature normal. Oxygen saturation normal. Const General: cooperative, healthy appearing and no acute distress Orientation/consciousness: oriented to person, oriented to place, oriented to time and patient oriented x3 Limitations: no limitations HENMT Head: Yes normocephalic and Yes atraumatic Ears: external ears normal General nose exam: Normal external nose present Face and sinus: Yes face symmetric Mouth: oropharynx normal and moist mucous membranes Throat: Yes uvula midline Eyes Pupils: Equal, round and reactive pupils present Neck Neck: Yes normal visual inspection and Yes supple Resp Effort & Inspection: normal respiratory effort and able to speak in complete sentences Auscultation: clear to auscultation bilaterally Cardio Rate: regular rate Rhythm: regular rhythm Heart sounds: S1 normal heart sound present and S2 normal heart sound present GI Palpation (GI): Soft to palpation and Tenderness to palpation present (GI) in the RUQ; Baker's sign negative Auscultation: normoactive bowel sounds Other: healing ecchymosis over R flank/CVA General: Yes no CVA tenderness Back/Spine/Pelvis Back: no CVA tenderness Skin General skin exam: elasticity normal and turgor normal Neuro General: oriented to person, oriented to place, oriented to time, patient oriented x3, moves all extremities, no focal motor deficits and CN's II-XI intact bilaterally Cranial nerves: Yes Equal, round and reactive pupils present Cognition (Neuro): normal cognition Extrem General: Yes full ROM, Yes no pedal edema and Yes no calf tenderness Psych Mental Status: mental status grossly normal Affect: normal affect Thought process: Normal thought process present Course Course Course Narrative: RME, this is a rapid medical exam performed by Nabeel Mohan please refer to primary provider for complete H&P- 79-year-old female presents for evaluation of right flank pain. She had a cryoablation of the mass of the kidney 10 days ago. She reports worsening right flank pain. Plan for labs, urinalysis. We will defer any potential advanced imaging to primary ER provider Reevaluation(s) Reevaluation #1: I Katja Rodrigues PA-C have accepted care of the patient and signed out pending ultrasound and final disposition I can see the consult note from Radiology in the system, the author was Rian bruce, the narrative is below: Narrative: HPI: Sulema is an 79 year old female with the past medical history of a right sided renal mass presumed to be renal cell carcinoma who presents with right sided flank pain status post renal mass ablation with postprocedural hemorrhage. Specifically, she was found to have a stable hematoma at discharge.? Denies fever, chills or weakness.? The pain has been relatively stable and she has been utilizing oral analgesics including Tylenol and Tramadol. These have only been helping minimally. Physical exam: no acute distress. Mild flank pain. Assessment and Plan: In summary, Sulema is an 79 year old female status post renal mass ablation. The patient was seen and exam at the bedside of the emergency department. She underwent a CT scan today which showed post ablation changes as well as findings consistent with a resolving hematoma.? At this time, we recommend conservative management with pain control. She is not presenting infectiously. We will also be following up with the patient in the office setting within the next week or so. Any further work up at the discretion of the emergency department provider. Thank you for allowing us to participate in the care of this patient. Ultrasound right upper quadrant:COMPARISON: None available. TECHNIQUE: Real-time imaging of the gallbladder and bile ducts was performed. FINDINGS: GALLBLADDER: The gallbladder is physiologically distended without evidence of stones, sludge, polyps, wall thickening or pericholecystic fluid. Negative sonographic Baker's sign. COMMON BILE DUCT: Normal in caliber measuring 0.3 cm in diameter. FREE FLUID: None. US/US abdomen limited IMPRESSION: Normal gallbladder and bile ducts. Paging Rian bruce again Consultations Consultation #1: per Rian Bruce, IR..... He states the goal is to see the patient next week, within the week, that staff we will be contacting her from his office. He also states that it is normal for her to still have residual discomfort, it is reassuring that the bleeding is resolving on CT scan. I will reiterate all of this information to the family again. Time: 17:58 Medications Administered Discontinued Medications Generic Name Dose Route Start Last Admin Trade Name Freq PRN Reason Stop Dose Admin Tramadol HCl 50 mg 12/10/24 16:37 12/10/24 18:10 Tramadol Hcl 50 Mg Tablet PO 12/10/24 16:38 50 mg ONCE ONE Administration Medical Decision Making Medical Decision Making MDM Narrative: Patient is an 79-year old female with history of recurrent urinary tract infections, degenerative disc disease of thoracic spine, paroxysmal AFib, hypertrophic cardiomyopathy, anemia, gastric ulcer, vitamin-D deficiency, osteoarthritis, hiatal hernia, cardiac murmur, anemia, osteopenia, Sevilla's esophagus, hypertension, and hypercholesteremia presenting to the ED with complaint of right upper quadrant abdominal pain as well as ongoing right flank pain. On exam patient is awake, A+Ox3, VS WNL, afebrile, normal neurological exam without focal deficits, physical exam findings as above. Given reported symptoms and physical exam findings, initial differential includes but is not limited to biliary colic, cholecystitis, choledocolithiasis. Lower suspicion for retroperitoneal bleeding but given recent procedure with complications, will obtained CT A/P. Labs notable for slight leukocytosis improved from other recent labs, improving H&H, thrombocytosis, elevated transaminases with normal Tbili. CT A/P notable for biliary ductal dilatation and suspected cholelithiasis. CT also notable for to loculated fluid collections in right posterior lateral abdomen consistent with seroma/hematoma, less likely abscess. Given that patient is afebrile, no significant leukocytosis, feel less likely abscess as well. My interpretation is in agreement with the radiologist's interpretation. RUQ ultrasound ordered for further evaluation of biliary ductal dilatation. Patient signed out to AGATA Basurto pending U/S results. Differential Diagnosis Differential Diagnoses: The differential diagnosis associated with the presentation includes as per [facility] Admission/Observation Consideration of admission/observation: Escalation of care including admission/observation considered Lab Data [facility] Lab Attestation statement: I reviewed the patient's lab results. as per [facility] 12/10/24 10:32 12/10/24 10:32 Labs: Lab Results 12/10/24 12/10/24 Range/Units 10:32 13:07 WBC 11.1 H (4.8-10.8) X10*3/uL RBC 3.96 L (4.20-5.50) X10*6/uL Hgb 12.2 (12.0-16.0) g/dl Hct 36.1 L (37.0-47.0) % MCV 91.2 (80.0-98.0) fL MCH 30.8 (27.0-33.0) pg MCHC 33.8 (31.0-35.0) g/dl RDW 13.2 (11.0-16.0) % Plt Count 419 H (160-400) X10*3/uL MPV 8.5 L (9.4-12.3) fL Immature Gran % (Auto) 0.8 H (0.0-0.4) % Neut % (Auto) 78.5 H (45-73) % Lymph % (Auto) 12.6 L (20-40) % Richardson % (Auto) 6.6 (2-11) % Eos % (Auto) 1.0 (0-4) % Baso % (Auto) 0.5 (0-2) % Lymph # (Auto) 1.4 (1.2-4.9) X10*3/uL Richardson # (Auto) 0.7 (0.1-1.2) X10*3/uL Eos # (Auto) 0.1 (0.0-0.4) X10*3/uL Baso # (Auto) 0.1 (0.0-0.2) X10*3/uL Abs Immat Gran (auto) 0.09 H (0.00-0.03) X10*3/uL Absolute Neuts (auto) 8.7 H (2.0-8.3) x10*3/uL Absolute Nucleated RBC 0.000 (0.0-0.012) X10*3/uL Nucleated RBC % (auto) 0.0 (0.0-0.2) /100WBC Sodium 136 (135-145) mmol/L Potassium 4.2 (3.3-5.1) mmol/L Chloride 101 (96-108) mmol/L Carbon Dioxide 27 (22-29) mmol/L Anion Gap 12 (12-20) BUN 9 (9-16) mg/dL Creatinine 0.99 (0.5-1.4) mg/dL Estim Creat Clear Calc 46.2 Estimated GFR 54 Random Glucose 90 (60-115) mg/dL Calcium 8.9 (8.4-10.2) mg/dL Total Bilirubin 0.8 (0.0-1.0) mg/dL AST 111 H (5-31) U/L ALT 123 H (0-31) U/L Alkaline Phosphatase 69 (39-117) U/L Total Protein 6.5 (6.5-8.0) g/dL Albumin 3.7 (3.5-5.0) g/dL Lipase 19 (8-78) U/L Urine Color Yellow Urine Appearance Clear Urine pH 7.0 (5.0-9.0) Ur Specific Hudson <= 1.005 (1.005-1.025) Urine Protein Negative (Neg-Trace) mg/dL Urine Glucose (UA) Negative (Negative) mg/dL Urine Ketones Negative (Negative) mg/dL Urine Blood Large (3+) H (Negative) Urine Nitrite Negative (Negative) Ur Leukocyte Esterase Trace H (Negative) Urine RBC 0-2 (0-2) /HPF Urine WBC 0-5 (0-5) /HPF Ur Squamous Epith Cells 0-2 (0-2) /HPF Urine Bacteria None Seen (None Seen) Hyaline Casts 0-2 (0-2) /LPF Independent Interpretation I performed an independent interpretation of an: CT Scan Interpretation: CT A/P notable for biliary ductal dilatation and suspected cholelithiasis. CT also notable for to loculated fluid collections in right posterior lateral abdomen consistent with seroma/hematoma, less likely abscess. Radiology Impression Discussion of test interpretation with radiology: I have reviewed the radiologist's reading. Radiologist Impression: CT/CT abdomen pelvis w IV con IMPRESSION: There is intramedullary biliary ductal dilation and suspected cholelithiasis raising suspicion of an obstructed cystic duct resulting in biliary dilation. Currently, no gallbladder wall thickening is seen to suggest cholecystitis though there is risk of this developing in the future. Consider right upper quadrant ultrasound confirmation. Changes from cryoablation of the right mid to upper kidney presumed renal cell carcinoma. There is possibly a small rim of residual tumor at the cephalad margin of the cryoablation area (sagittal CT #8 79/111 ). However, there area is very ill-defined. Small bilateral pleural effusions, larger ON, with compressive atelectasis, most likely related to recent procedure. 2 loculated fluid collections are present in the right posterior lateral abdomen are most consistent with seroma/hematoma and less likely representing abscess. External Record Review External record reviewed: Inpatient record, Office record and Outpatient record Discharge Plan Discharge Clinical Impression: Abdominal pain Patient Disposition: Home, Self-Care Instructions: Abdominal Pain (ED), Hematoma (ED) Additional Instructions: All of your screening labs were normal. There were no acute findings on the CT scan of the abdomen and pelvis, or the ultrasound of the gallbladder region. You have a fluid collection called a hematoma that is resolving. This is secondary to your recent procedure. The presence of blood can be irritating to the abdominal wall. Keep taking the tramadol as needed. Be sure to use [id number] Colace, this is a stool softener, with [id number] MiraLax, 1 to 2 times a day, to maintain regularity and to prevent constipation. Uses Zofran as needed for nausea. The tramadol as a medication that can be constipating. The interventional radiology service we will be contacting you Friday to be seen in the office and follow up. I am also providing you with their contact, so you can reach out to them yourself. Prescriptions: New ondansetron 4 mg tablet,disintegrating 4 mg PO Q8H PRN (Reason: nausea and vomiting) Qty: 10 0RF No Action (DME) SHOWER CHAIR See Rx Instructions .Route .MEDSUPPLY Qty: 1 0RF Rx Instructions: As directed; Rx is for INDEFINITE/PERMANENT/FOREVER/LIFETIME USE (DME) FRONT-WHEELED WALKER See Rx Instructions .Route .MEDSUPPLY Qty: 1 0RF Rx Instructions: As directed ; Ht = 5'6 ; Wt = 164 lbs; Rx is for INDEFINITE/PERMANENT/FOREVER/LIFETIME USE ferrous sulfate 325 mg (65 mg iron) tablet 325 mg PO BID Qty: 180 3RF Eliquis 2.5 mg tablet 2.5 mg PO BID 90 Days Qty: 180 3RF amiodarone 200 mg tablet 200 mg PO DAILY Qty: 90 1RF sucralfate [Carafate] 1 gram tablet 1 g PO QIDACHS 30 Days Qty: 120 3RF raloxifene 60 mg tablet 60 mg PO DAILY 90 Days Qty: 90 3RF lorazepam 0.5 mg tablet 0.5 mg PO BID PRN (Reason: anxiety) Qty: 30 0RF Rx Instructions: Take only as needed for increased anxiety cyanocobalamin (vitamin B-12) [Vitamin B-12] 1,000 mcg tablet 1,000 mcg PO MOTH Rx Instructions: takes friday and estradiol 0.01 % (0.1 mg/gram) cream 2 g vaginal Q48H PRN (Reason: Itching/Burning) cholecalciferol (vitamin D3) 25 mcg (1,000 unit) capsule 25 mcg PO DAILY 90 Days Qty: 90 3RF omeprazole 40 mg capsule,delayed release(DR/EC) 40 mg PO DAILY@0630 diltiazem HCl 240 mg capsule,extended release 24hr 240 mg PO DAILY 90 Days Qty: 90 1RF Protocol: Hold for SBP/HR < HOLD for SBP < : 90 HOLD for HR < : 60 tramadol 50 mg tablet 50 mg PO TID PRN (Reason: pain) 10 Days Qty: 30 0RF atorvastatin [Lipitor] 10 mg tablet 10 mg PO BEDTIME 90 Days Qty: 90 1RF Referrals: Rian Bruce MD [Physician, Interventional Radiology] Referral Note: needs f/u for next week, re: s/p cryoablation 11/23 Print Language: Amharic
[2024-12-10 10:46] LABS: MANUAL DIFF FLAG NO
[2024-12-10 10:47] LABS: Hematocrit 36.1 % (37.0-47.0); Hemoglobin 12.2 g/dl (12.0-16.0); Imm Gran Abs Auto 0.09 X10*3/uL (0.00-0.03); Imm Gran Pct Auto 0.8 % (0.0-0.4); Lymphocytes Absolute Auto 1.4 X10*3/uL (1.2-4.9); Mean Corpuscular HGB Conc 33.8 g/dl (31.0-35.0); Mean Corpuscular Hemoglobin 30.8 pg (27.0-33.0); Mean Corpuscular Volume 91.2 fL (80.0-98.0); NRBC Abs Auto 0.000 X10*3/uL (0.0-0.012); NRBC Pct Auto 0.0 /100WBC (0.0-0.2); Platelet Count 419 X10*3/uL (160-400); Red Blood Count 3.96 X10*6/uL (4.20-5.50); White Blood Count 11.1 X10*3/uL (4.8-10.8)
[2024-12-10 11:08] LABS: Alanine Aminotransferase 123 U/L (0-31); Albumin Level 3.7 g/dL (3.5-5.0); Alkaline Phosphatase 69 U/L (39-117); Anion Gap 12 (12-20); Aspartate Amino Transferase 111 U/L (5-31); Blood Urea Nitrogen 9 mg/dL (9-16); Calcium 8.9 mg/dL (8.4-10.2); Carbon Dioxide 27 mmol/L (22-29); Chloride 101 mmol/L (96-108); Creatinine Clr Calc Pharmacy 46.2; Estimated Glomerular Filt Rate 54; Lipase 19 U/L (8-78); Potassium 4.2 mmol/L (3.3-5.1); Sodium 136 mmol/L (135-145); Total Protein 6.5 g/dL (6.5-8.0)
--- OUTSIDE RECORDS SUMMARY | 2024-12-10 12:28 | XMS_ITS | Clinical Summary ---
Author Organization Merged With [facility] Address [address] [id number] Phone Care Team Providers Care Tobacco Stripper Name Role Phone Colt Teran MD Primary Care Provider [phone] Allergies Active Allergy Reactions Criticality Noted Date [...] Active ferrous sulfate 325 mg (65 mg hopland iron) EC tablet 1 tablet Orally Once [...] Office Visit [facility] at [address] [address] Ángela Rodriguez CNP Encounter for removal of sutures (Primary Dx) 09/09/2024 9:50 AM EDT Office Visit [facility] at [address] [address] Ángela Rodriguez CNP Laceration of skin of [...] Final Result from Last [address] [address] Care Teams Tobacco Stripper Relationship Specialty Start Date End Date Colt Teran MD [address] [place] [address] [place] [address] PCP - General Internal Medicine 09/09/24 Additional Source Comments The information contained in this document represents components of the legal health record. It is not the complete legal health record.Merged With [facility]
[2024-12-10 13:30] LABS: Appearance Urine Clear; Glucose Urine UA Negative (Negative); PH 7.0 (5.0-9.0); Specific Gravity - Urine <= 1.005 (1.005-1.025); UMIC TRIGGER UACC YES
--- NOTE | 2024-12-10 16:41 | HO.RADPN ---
RADIOLOGY Narrative Narrative: HPI: Suelma is an 79 year old female with the past medical history of a right sided renal mass presumed to be renal cell carcinoma who presents with right sided flank pain status post renal mass ablation with postprocedural hemorrhage. Specifically, she was found to have a stable hematoma at discharge.? Denies fever, chills or weakness.? The pain has been relatively stable and she has been utilizing oral analgesics including Tylenol and Tramadol. These have only been helping minimally. Physical exam: no acute distress. Mild flank pain. Assessment and Plan: In summary, Sulema is an 79 year old female status post renal mass ablation. The patient was seen and exam at the bedside of the emergency department. She underwent a CT scan today which showed post ablation changes as well as findings consistent with a resolving hematoma.? At this time, we recommend conservative management with pain control. She is not presenting infectiously. We will also be following up with the patient in the office setting within the next week or so. Any further work up at the discretion of the emergency department provider. Thank you for allowing us to participate in the care of this patient.
[2024-12-10 18:51] VITALS: BP 188/79; PULSE 73; RESP 16; TEMP 36.7; O2SAT 96
== END 2024-12-10 18:51 | disposition home or self-care (01) ==
PROVIDERS: Physician Assistant; Emergency Provider Emergency Medicine; PCP Internal Medicine
DX: R10.2 Pelvic and perineal pain (principal); Z79.899 Other long term (current) drug therapy; Z87.891 Personal history of nicotine dependence
CPT/HCPCS: 36415; 74177; 76705; 80053; 81001; 83690; 85025; 99284; 99285

== ENCOUNTER → 2024-12-10 12:43 | Outpatient (BNV) | payer BC, SELFPAY | PROVIDERS: Emergency Provider Emergency Medicine; PCP Internal Medicine; Visit Provider Radiology Diagnostic Radiology | DX: K83.8 Other specified diseases of biliary tract (principal); J90 Pleural effusion, not elsewhere classified; J98.11 Atelectasis; R18.8 Other ascites; R10.11 Right upper quadrant pain | CPT/HCPCS: 74177; 76705 ==

== ENCOUNTER 2024-12-21 13:28 | Outpatient (AMB) | payer BC, SELFPAY ==
--- NOTE | 2024-12-21 13:31 | A.OFFPC_ITS ---
Vital Signs 12/21/24 13:32 Height 5 ft 6 in Weight 151 lb 2 oz BMI 24.4 BP 130/76 Blood Pressure Location Lt brachial Position Sitting Pulse 59 Pulse Source Pulse Oximeter Pulse Oximetry (%) 97 Oxygen Delivery Method Room Air Intake Visit Reasons: 4mth f/u Gathering Worker Required: No Accompanied by: Self / Same As Patient Allergies enflurane (ENFLURANE) Allergy (Severe, Verified 12/21/24 13:53) Per Patient Liver toxicity piperacillin (Zosyn) Allergy (Severe, Verified 12/21/24 13:53) Rash tazobactam (Zosyn) Allergy (Severe, Verified 12/21/24 13:53) Rash Sulfa (Sulfonamide Antibiotics) Adverse Reaction (Intermediate, Verified 12/21/24 14:01) Diarrhea Medication List - Last Reconciled 12/21/24 by Colt Teran MD amiodarone 200 mg PO DAILY atorvastatin (Lipitor) 10 mg PO BEDTIME 90 days Held on 12/03/24. Instructions: elevated LFTs cholecalciferol (vitamin D3) 25 mcg PO DAILY 90 days cyanocobalamin (vitamin B-12) (Vitamin B-12) 1,000 mcg PO MOTH diltiazem HCl CD 240 mg See Protocol PO DAILY 90 days Eliquis (apixaban) 2.5 mg PO BID 90 days NS Held on 11/24/24. Instructions: Resume on 12/08/24. Follow up with primary care provider. Follow up with Interventional Radiology (Dr. sIbell) estradiol 0.01%(0.1mg/gram) 2 grams vaginal Q48H PRN ferrous sulfate 325 mg PO BID [FRONT-WHEELED WALKER As directed ; Ht = 5'6 ; Wt = 164 lbs; Rx is for INDEFINITE/PERMANENT/FOREVER/LIFETIME USE] lorazepam 0.5 mg PO BID PRN omeprazole 40 mg PO DAILY@0630 ondansetron 4 mg PO Q8H PRN raloxifene 60 mg PO DAILY 90 days [SHOWER CHAIR As directed; Rx is for INDEFINITE/PERMANENT/FOREVER/LIFETIME USE] sucralfate (Carafate) 1 g PO QIDACHS 30 days Tobacco use date assessed: 12/21/24 Last assessed Fall Risk: 12/21/24 Dental Screening Dental Screen Date: 12/21/24 HPI 4mth f/u HPI Details Patient comes in today for her follow up visit She went to the ER about a week ago for increasing abdominal pain, especially over the RUQ and right flank areas Work ups done at the ER, including labs, US and CT, all came back with no acute findings Patient was reassured that the residual hematoma in the right posterior and right lateral abdominal areas are gradually resolving and they do take some time before clearing up completely Patient states that her abdominal pains have since slowly subsided States that she is currently eating but still does not have much of an appetite; she was moving her bowels regularly but got very constipated for a while when she was taking Tramadol for pain - states that she has stopped taking Tramadol since and is currently taking some Miralax and OTC stool softeners as needed for her constipation She denies any headaches or dizziness; denies any fever Denies any chest pains, no increased SOB She's had no nausea/vomiting lately Adds that she started experiencing again symptoms of dysuria and urinary frequency about 4 days ago and feels that they are slowly getting worse - thinks that she has a UTI again Needs her Eliquis Rx refilled She had some follow up labs done a couple of weeks ago - to discuss her results [facility] Medical History Degenerative joint disease of thoracic spine Gastrointestinal bleed Paroxysmal atrial fibrillation Afib Hypertrophic cardiomyopathy Atrial fibrillation with RVR Anemia Gastric ulcer History of blood transfusion Vitamin B12 deficiency Overweight (BMI 25.0-29.9) Primary osteoarthritis of hand Vitamin D deficiency Osteopenia Anemia Cardiac murmur Hiatal hernia Sevilla's esophagus Benign essential hypertension Pure hypercholesterolemia Surgical History H/O colonoscopy History of esophagogastroduodenoscopy (EGD) History of appendectomy History of hysterectomy Family History Father Hypertension Mother Stroke Social History Household Members: None Housing: House Are you a primary nurse care manager to a significant other at home: No Do you presently have visiting nurse or other home services: No Alcohol intake: never Patient Tobacco Use Status: Former Tobacco user e-Cigarette/Vaping Use: Never Used Second Hand Smoke Exposure: No Advance Directives Date on File: 01/22/21 service: No Current occupational status: retired Cognitive needs: Yes (walker, cane) Hearing needs: No Vision needs: Yes (glasses) Questionnaire PHQ-9 Over the last 2 weeks, how often have you been bothered by any of the following problems? Depression Screening Interpretation: Negative Depression Screening Done: Yes Source: Developed by Drs. Emiliano Ferrari, Laura Barlow, Nico Ely and colleagues, with an educational florentino from [employer]. Thrive Questionnaire Date Thrive assessed: 08/16/24 I am a: Patient What is your living situation today?: I have a steady place to live Within the past 12 months, did the food you bought not last and you didn't have the money to get more?: Never true Within the past 12 months, did you worry whether your food would run out before you got money to buy more?: Never true Do you have trouble paying for medicines?: No Do you have trouble getting transportation to medical appointments?: No Do you have trouble paying your heating and electricity bill?: No Do you have trouble taking care of your child, family member or friend?: No Do you have trouble with day-to-day activities such as bathing, preparing meals, shopping, managing finances, etc.?: No Are you currently unemployed and looking for a job?: No Are you interested in more education?: No Please select the resources that you would like help with: None Currently or been in a relationship where the following occur: No concerns reported THRIVE Score: 0 AUDIT C Alcohol Use Questionnaire (AUDIT-C) 1. How often do you have a drink containing alcohol?: Never 3. How often do you have six or more drinks on one occasion?: Never Total Score: 0 Score Reviewed/Action Taken: Yes JULIA-7 AMB Questionnaire JULIA-7 Date JULIA - 7 assessed: 12/02/24 Source: Developed by Drs. Emiliano Ferrari, Laura Barlow, Nico Ely and colleagues, with an educational florentino from [employer]. Review of Systems Const Denies chills, Denies fatigue, Denies fever(s) and Denies headache(s) ENT Denies dysphagia, Denies dizziness, Denies otalgia, Denies headache(s), Denies neck pain, Denies odynophagia and Denies sore throat Card Denies chest pain, Denies palpitations and Denies dyspnea Resp Denies chest congestion, Denies cough and Denies dyspnea GI Denies abdominal pain, Denies constipation, Denies dysphagia, Denies heartburn, Denies diarrhea, Denies nausea, Denies odynophagia and Denies vomiting Reports hematuria, Denies difficulty voiding, Denies nocturia, Reports dysuria (mild) and Reports urinary urgency (at times) Musc Reports back pain (over the right flank), Denies arthralgias and Denies neck pain Skin/Breast Denies rash Neuro Denies dizziness, Denies headache(s) and Reports paresthesias (on and off in the fingers and toes bilaterally) Psych Reports anxiety Endo Denies fatigue and Denies palpitations Physical exam (Primary Care) Vital Signs: Last Vital Signs Pulse 59 12/21/24 13:32 BP 130/76 12/21/24 13:32 Pulse Ox 97 12/21/24 13:32 Oxygen Delivery Method Room Air 12/21/24 13:32 BMI result Body Mass Index 24.4 Tobacco/Smoking Status: Tobacco use Status Tobacco use date assessed 12/21/24 12/21/24 13:40 Patient Tobacco Use Status Former Tobacco user 12/21/24 13:40 e-Cigarette/Vaping Use Never Used 12/21/24 13:40 Depression Screening Interpretation: Negative Thrive Assessment: Date of Thrive Assessment Date Thrive assessed 08/16/24 12/21/24 13:40 Currently or been in a relationship where the following occur: No concerns reported Const General: no acute distress and alert [facility] Throat: Yes posterior oropharynx normal and Yes tonsils normal (no TP congestion) Neck Neck: Yes supple and No lymphadenopathy Thyroid: Thyroid normal Resp Auscultation: clear to auscultation bilaterally, no rales and no wheezes Cardio Rate: regular rate Rhythm: regular rhythm Heart sounds: Murmur heart sound present systolic soft, III/ and at the apex GI Palpation (GI): Soft to palpation and nontender Auscultation: normal bowel sounds General: Yes CVA tenderness on the right Back/Spine/Pelvis Back: CVA tenderness Thoracic/Lumbar Spine: thoracic spinal tenderness Skin Rashes: no rashes Extrem General: Yes no clubbing, cyanosis or edema Results Reviewed Results Reviewed: Laboratory Tests 11/27/24 12/04/24 12/10/24 09:31 08:45 10:32 WBC 11.1 H Hgb 11.2 L 12.2 Hct 33.9 L 36.1 L Plt Count 419 H Sodium 136 Potassium 4.2 Creatinine 0.99 Estimated GFR 54 Random Glucose 90 Fasting Glucose 72 Calcium 8.9 AST 115 H 111 H ALT 131 H 123 H Triglycerides 94 Cholesterol 142 LDL Cholesterol, Calc 86 HDL Cholesterol 38 L Lipase 19 Vitamin B12 1080 H 25-OH Vitamin D Total 30.0 TSH 4.85 H Free T4 1.30 Ur Specific [place] Urine Protein Urine Glucose (UA) Urine Blood Urine Nitrite Ur Leukocyte Esterase 12/10/24 13:07 WBC Hgb Hct Plt Count Sodium Potassium Creatinine Estimated GFR Random Glucose Fasting Glucose Calcium AST ALT Triglycerides Cholesterol LDL Cholesterol, Calc HDL Cholesterol Lipase Vitamin B12 25-OH Vitamin D Total TSH Free T4 Ur Specific [place] <= 1.005 Urine Protein Negative Urine Glucose (UA) Negative Urine Blood Large (3+) H Urine Nitrite Negative Ur Leukocyte Esterase Trace H Coding Level of Care Code Est Pt Level 4 (61445) Diagnoses Renal mass, right N28.89 Right flank pain R10.9 Anemia due to acute blood loss D62 Anemia type: other cause Other causes of anemia: acute posthemorrhagic Elevated LFTs R79.89 Paroxysmal atrial fibrillation I48.0 Pure hypercholesterolemia E78.00 Benign essential hypertension I10 Hypertrophic cardiomyopathy I42.2 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 K31.811 GI bleed type/associated pathology: angiodysplasia of stomach and duodenum Osteopenia, unspecified location M85.80 Osteopenia location: unspecified Vitamin D deficiency E55.9 Osteoarthritis of thoracic spine, unspecified spinal osteoarthritis complication status M47.814 Spinal osteoarthritis complication: unspecified spinal osteoarthritis Vitamin B12 deficiency E53.8 Elevated TSH R79.89 Dysuria R30.0 Assessment & Plan Assessment & Plan (1) Renal mass, right: Code(s): N28.89 - Other specified disorders of kidney and ureter Category: Medical Plan: S/P CT-guided cryoablation a few weeks ago Have discussed with patient previously that her right renal mass was most likely a renal cell carcinoma and that cryoablation was curative She is presently still experiencing some residual right flank pain at times Follow up with urology and interventional radiology as scheduled (2) Right flank pain: Code(s): R10.9 - Unspecified abdominal pain Category: Medical Plan: Improving - this was likely a result of her renal mass cryoablation a few weeks ago Continue OTC Tylenol PRN Follow up with urology as scheduled (3) Anemia: Code(s): D64.9 - Anemia, unspecified Category: Medical Qualifiers: Anemia type: other cause Other causes of anemia: acute posthemorrhagic Qualified Code(s): D62 - Acute posthemorrhagic anemia Plan: Patient reportedly developed some retroperitoneal bleeding (her hemoglobin dropped from 14 g/dL to 11.7 g/dl after her renal mass ablation) and she was admitted to the hospital overnight as a precaution and for close monitoring Patient's H/H remained stable while she was in the hospital and she did not require any blood transfusion Her H/H has improved to 12.2/36.1 on her labs done a couple of weeks ago (4) Elevated LFTs: Code(s): R79.89 - Other specified abnormal findings of blood chemistry Category: Medical Plan: Her LFTs remain elevated on her labs done a couple of weeks ago Have advised patient to continue to hold her Atorvastatin for now Will have her recheck her LFTs in 1 month for follow up (5) Paroxysmal atrial fibrillation: Code(s): I48.0 - Paroxysmal atrial fibrillation Category: Medical Plan: Patient currently remains in sinus rhythm - she was cardioverted on Amiodarone Continue Amiodarone 200 mg QD and Dilitiazem ER 240 mg QD She was on Eliquis for thromboembolism prophylaxis but this was discontinued for some time a couple of years ago due to GI bleeding; she has since gone back on Eliquis 2.5 mg BID Because of her GI bleeding and anemia, she has been advised in the past to consider getting a Watchman device to obviate her need for long-term anticoagulation but she has decided against it after giving it some thought States that Dr. Funk is considering referring her to the [facility] for further evaluation as he feels that patient's hypertrophic cardiomyopathy has b een getting worse recently Follow up with cardiology as scheduled (6) Pure hypercholesterolemia: Code(s): E78.00 - Pure hypercholesterolemia, unspecified Category: Medical Plan: Results of her labs done a couple of weeks ago reviewed and discussed with patient Reinforced low cholesterol diet Her Atorvastatin 10 mg QD remains ON HOLD due to her elevated LFTs Will recheck her labs and fasting lipids in 4 months for follow up (7) Benign essential hypertension: Code(s): I10 - Essential (primary) hypertension Category: Medical Plan: Reinforced low sodium diet - goal is systolic BP of at least 130 to 140 mm or less Continue Diltiazem ER 240 mg QD (was on Amlodipine 2.5 mg QD in the past but t his was stopped when she was started on Diltiazem) (8) Hypertrophic cardiomyopathy: Code(s): I42.2 - Other hypertrophic cardiomyopathy Category: Medical Plan: Her last recorded echocardiogram done here at [facility] in June 2022 revealed a hyperdynamic left ventricular systolic function, with the visually estimated ejection fraction at >70%. The left atrium is severely dilated and evidence suggests grade II (moderate) diastolic dysfunction Patient has more recent echocardiograms done with Dr. Funk and we will try to obtain copies of these for documentation Dr. Funk has reportedly referred patient to the [facility] for further evaluation as he felt that patient's hypertrophic cardiomyopathy is getting worse recently She reportedly had echocardiogram, stress testing and cardiac MRI done at the [facility] sometime this past month (9) Gastrointestinal bleed: Code(s): K92.2 - Gastrointestinal hemorrhage, unspecified Category: Medical Qualifiers: GI bleed type/associated pathology: angiodysplasia of stomach and d uodenum Qualified Code(s): K31.811 - Angiodysplasia of stomach and duodenum with bleeding Plan: Resolved with no recurrence EGD done on 06/24/22 and 06/27/22 revealed (+) ulcerated gastric mass and Bx done on 06/27/22 came out benign - was a hyperplastic mucosal polyp with background mild chronic inactive inflammation with no H pylori Continue Omeprazole 40 mg QD and Carafate 1 gm QID Follow up with GI as scheduled (10) Osteopenia: Code(s): M85.80 - Other specified disorders of bone density and structure, unspecified site Category: Medical Qualifiers: Osteopenia location: unspecified Qualified Code(s): M85.80 - Other specified disorders of bone density and structure, unspecified site Plan: Continue Raloxifene 60 mg QD Repeat BMD done on 10/07/2018 showed no significant change in BMD from 04/2014 - will continue to monitor every few years Patient is encouraged again to continue to stay active and exercise regularly as tolerated (11) Vitamin D deficiency: Code(s): E55.9 - Vitamin D deficiency, unspecified Category: Medical Plan: Continue Vitamin D3 1000 units QD (12) Degenerative joint disease of thoracic spine: Code(s): M47.814 - Spondylosis without myelopathy or radiculopathy, thoracic region Category: Medical Qualifiers: Spinal osteoarthritis complication: unspecified spinal osteoarthritis Qualified Code(s): M47.814 - Spondylosis without myelopathy or radiculopathy, thoracic region Plan: Thoracic spine x-rays done last year revealed (+) advanced multilevel degenerative changes in the thoracic spine Have advised patient on some back exercises that she can do on her own to help manage her back pain Advised that if she does not experience any relief with these, we can refer her to physical therapy for further management. (13) Vitamin B12 deficiency: Code(s): E53.8 - Deficiency of other specified B group vitamins Category: Medical Plan: Continue Vitamin B12 1000 mcg 1 tablet 2 to 3 times a week She was previously advised to lower her Vitamin B12 1000 mcg tablets intake as her level was very high - this has improved back to normal since then (14) Elevated TSH: Code(s): R79.89 - Other specified abnormal findings of blood chemistry Category: Medical Plan: Her TSH is again slightly elevated on her recent labs; her free T4 remains normal Patient is clinically euthyroid at present Will continue to monitor her TFTs regularly (15) Dysuria: Code(s): R30.0 - Dysuria Category: Medical Plan: Will go ahead and treat her again empirically with Nitrofurantoin 100 mg BID x 7 days Plan Follow up in 4 months Orders: Orders Comprehensive Met. Panel 1 Month R79.89 - Other specified abnormal findings of blood chemistry Comprehensive [place]. Panel Fast 4 Months E78.00 - Pure hypercholesterolemia, unspecified TSH reflex Free T4 4 Months E78.00 - Pure hypercholesterolemia, unspecified Complete Blood Count Auto Diff 4 Months D64.9 - Anemia, unspecified Lipid Panel 4 Months E78.00 - Pure hypercholesterolemia, unspecified UA CC w/rflx Micro + Cult 4 Months R30.0 - Dysuria Medications: New nitrofurantoin monohyd/m-cryst 100 mg (Macrobid) must administer with a meal/food 100 mg PO Q12H 14 caps 0RF 7 days Resumed Eliquis 2.5 mg PO BID 90 days 180 tabs 3RF NS Eliquis (apixaban) 2.5 mg PO BID 90 days 180 tabs 3RF NS
[2024-12-21 13:32] VITALS: BP 130/76; PULSE 59; O2SAT 97; BMI 24.4
--- OUTSIDE RECORDS SUMMARY | 2024-12-21 14:45 | XMS_ITS | Clinical Summary ---
Author Organization [facility] Address [address] [id number] Phone Care Team Providers Care Tank Storage Supervisor Name Role Phone Colt Teran MD Primary Care Provider [phone] Allergies Active Allergy Reactions Criticality Noted Date [...] Active ferrous sulfate 325 mg (65 mg redding iron) EC tablet 1 tablet Orally Once [...] Description 09/20/2024 10:20 AM EDT Office Visit [facility] at [address] [address] Ángela Rodriguez CNP Encounter for removal of sutures (Primary Dx) from Last 3 Months Immunizations [...] PM EDT Encounter for removal of sutures from Last 3 Months Results * SUTURE [...] with no immediate complications Ángela Rodriguez CNP [employer] F inal Result from Last 3 Months Insurance Care Teams Tank Storage Supervisor Relationship Specialty Start Date End Date Colt Teran MD [address] [place] [address] [place] [address] PCP - General Internal Medicine 09/09/24 Additional Source Comments The information contained in this document represents components of the legal health record. It is not the complete legal health record.[facility]
--- OUTSIDE RECORDS SUMMARY | 2024-12-21 14:45 | XMS_ITS | Patient Health Record ---
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 Luevano office for visit with Dr. 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) Active confirmed Problem 11222377 Acute gastric ulcer without hemorrhage or perforation (K25.3) Active confirmed Problem Chronic gastric ulcer with perforation (34456159) Chronic or unspecified gastric ulcer with perforation (K25.5) Active confirmed Problem Benign neoplasm of stomach (50800689) Polyp of stomach and duodenum (K31.7) Active confirmed Problem Duodenitis (39367538) Duodenitis (K29.80) Active confirmed Problem 03955430 Blood in stool (K92.1) Active confirmed Problem 280603031 Diverticulosis (K57.90) Active confirmed Problem 87863804 Heme + stool (R19.5) Active confirmed Problem 43032185 Hiatal hernia (K44.9) Active confirmed Problem Benign neoplasm of stomach (60617384) Gastric polyps (K31.7) Active confirmed Problem 837781397 Iron deficiency anemia due to chronic blood loss (D50.0) Active confirmed Problem 482577638 GERD with esophagitis (K21.0) Active confirmed Problem 75146232 UGI bleed (K92.2) Active confirmed Problem 309583580 Angiodysplasia o f colon (K55.20) Active confirmed Problem Hemorrhage of colon due to diverticulosis (641372267735909) Diverticulosis large intestine w/o perforation or abscess w/bleeding (K57.31) Active confirmed Problem Sevilla esophagus (118299368) 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) Active confirmed Problem Chronic gastritis (5026888) Chronic gastritis (K29.50) Active confirmed Problem 636239735 Anemia due to other cause, not classified (D64.89) Active confirmed Problem 572525428 Anemia due to acute blood loss (D62) Active confirmed Problem Gastroesophageal reflux disease with esophagitis (disorder) (520155423) Gastroesophageal reflux disease with esophagitis, unspecified whether hemorrhage (K21.00) Active confirmed Vital Signs Blood pressure diastolic 00 mm Hg 01/20/2024 Height 66.50 in 01/20/2024 Blood pressure systolic 00 mm Hg 01/20/2024 Weight 165 lbs 01/20/2024 BMI 26.23 kg/m2 01/20/2024 Encounters Encounter Location Date Provider Diagnosis [facility] [address] [place] [address] 01/20/2024 Emiliano Herrera Sevilla's esophagus without dysplasia [...] K22.70) Continue the same omeprazole and Sucralfate long-term. Overall, Sulema appears quite well. She has [...] Name:Emiliano Giuseppe Herrera , 01/19/2025 01:00:00 PM, [address] [place] [address], [address], [place], [address], Insurance Providers Payer Name Payer Address Payer Phone Subscriber Number Group Number Insured Name Patient Relationship to Insured Coverage Start Date Coverage End Date [facility] [employer] [address] [place] [address] [id number] [employer] SWIFT Self - patient is the insured Medical (General) History Medical History History ICD Code GERD with HH with long segme nt of Sevilla's esophagus diagnosed in 1994-most recent EGD was in 12/2016-no dysplasia hyperlipidemia hypertension fatty liver-neg w/u-Negative Hepatitis serologies and autoimmune studies--AST 36 and ALT 33, Iron sat 15% with an Iron of 60 in 07/2012 Denies ND,CVA,Lung disease,r enal disease--has had a heart murmur [...] a tiny nonbleeding angiodysplasia Hospitalization in June 3 for upper GI bleeding after being started [...] -followed by --she is going to the [facility] clinic in March of 2024 for further testing including a stress test with echocardiogram and either a MRI or CT scan of the heart Surgical History Surgery Date(Month/Year) appendectomy in December of 2010 complete hysterectomy
== END 2024-12-21 14:15 | disposition home or self-care (01) ==
LOC: HO.HMCH 13:29
PROVIDERS: PCP Internal Medicine; Visit Provider Internal Medicine
DX: I48.0 Paroxysmal atrial fibrillation (principal); I42.2 Other hypertrophic cardiomyopathy; N28.89 Other specified disorders of kidney and ureter; R10.9 Unspecified abdominal pain; D62 Acute posthemorrhagic anemia; R79.89 Other specified abnormal findings of blood chemistry; E78.00 Pure hypercholesterolemia, unspecified; I10 Essential (primary) hypertension; K31.811 Angiodysplasia of stomach and duodenum with bleeding; M85.80 Other specified disorders of bone density and structure, unspecified site; E55.9 Vitamin D deficiency, unspecified; M47.814 Spondylosis without myelopathy or radiculopathy, thoracic region

== ENCOUNTER 2025-01-13 13:16 | Outpatient (REF) | payer BC, SELFPAY ==
[2025-01-13 14:00] LABS: Appearance Urine Clear; Glucose Urine UA Negative (Negative); PH 6.5 (5.0-9.0); Specific Gravity - Urine 1.015 (1.005-1.025); UMIC TRIGGER UA YES
--- OUTSIDE RECORDS SUMMARY | 2025-01-13 16:46 | XMS_ITS | Clinical Summary ---
Author Organization [facility] Address [address] [id number] Phone Care Team Providers Care Geriatric Nurse Assistant Name Role Phone Colt Teran MD Primary Care Provider [phone] Allergies Active Allergy Reactions Criticality Noted Date [...] Active ferrous sulfate 325 mg (65 mg [place] iron) EC tablet 1 tablet Orally Once [...] 01/26/2019 Idiopathic urticaria 01/26/2019 Asteatosis cutis 12/03/2016 Immunizations No known immunizations Social History Tobacco [...] 2024 , 12/20/2022, 12/24/2021, Additional history exists COVID-19 VACCINE (2024- season) 2024 08/23/2024, 12/09/2023, 09/18/2023, Additional history exists Adult Td,Tdap Booster 01/01/2033 01/01/2023 RSV VACCINE Completed 01/08/2023 PNEUMOCOCCAL VACCINES (50+ years) Completed 01/29/2023, 12/27/2016, 12/29/2010 ZOSTER VACCINES Completed 05/26/2023, 04/2023, 02/10/2017 SMOKING STATUS SCREENING (Once After 26 Yrs) [...] this topic Medical Devices Not on file Insurance [facility] Care Teams Geriatric Nurse Assistant Relationship Specialty Start Date End Date Colt Teran MD [address] [place] [address] [place] [id number] PCP - General Internal Medicine 09/09/24 Additional Source Comments The information contained in this document represents components of the legal health record. It is not the complete legal health record.[facility]
== END 2025-01-13 13:17 | disposition home or self-care (01) ==
LOC: HO.LAB 13:16
PROVIDERS: PCP Internal Medicine; Visit Provider Nurse Practitioner Family
DX: R30.0 Dysuria (principal); R35.0 Frequency of micturition; N39.0 Urinary tract infection, site not specified
CPT/HCPCS: 81001; 87086; 87088; 87186

== ENCOUNTER 2025-01-19 13:48 | Outpatient (REF) | payer BC, SELFPAY ==
[2025-01-19 14:41] LABS: Alanine Aminotransferase 85 U/L (0-31); Albumin Level 4.2 g/dL (3.5-5.0); Alkaline Phosphatase 74 U/L (39-117); Anion Gap 10 (12-20); Aspartate Amino Transferase 92 U/L (5-31); Blood Urea Nitrogen 15 mg/dL (9-16); Calcium 9.0 mg/dL (8.4-10.2); Carbon Dioxide 28 mmol/L (22-29); Chloride 102 mmol/L (96-108); Estimated Glomerular Filt Rate > 60; Potassium 4.3 mmol/L (3.3-5.1); Sodium 136 mmol/L (135-145); Total Protein 6.8 g/dL (6.5-8.0)
--- OUTSIDE RECORDS SUMMARY | 2025-01-19 17:40 | XMS_ITS | Clinical Summary ---
Author Organization [facility] Address [address] [id number] Phone Care Team Providers Care Department Chair Name Role Phone Colt Teran MD Primary Care Provider [phone] Allergies Active Allergy Reactions Criticality Noted Date [...] Active ferrous sulfate 325 mg (65 mg [place] iron) EC tablet 1 tablet Orally Once [...] topic Medical Devices Not on file Insurance [facility] Care Teams Department Chair Relationship Specialty Start Date End Date Colt Teran MD [address] [place] [address] [place] [id number] PCP - General Internal Medicine 09/09/24 Additional Source Comments The information contained in this document represents components of the legal health record. It is not the complete legal health record.[facility]
--- OUTSIDE RECORDS SUMMARY | 2025-01-19 17:40 | XMS_ITS | Patient Health Record ---
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 And Printer Name Role Phone Jeffry CAROLINA, Colt Primary Care Provider Emiliano Chau [phone] Allergies Allergen (clinical drug ingredient) Drug/Non Drug Allergy documented on EMR Reaction Allergy Type Onset Date Status enflurane (uncoded) Unknown Allergy Active piperacillin / tazobactam zosyn (uncoded) Unknown Allergy Active negran (uncoded) Unknown Allergy Act jose general anesthesia (uncoded) Unknown Allergy Active sulfamethoxazole / trimethoprim Bactrim stomach upset Drug Allergy Active ethrane (uncoded) Unknown Allergy Ac tive halothane (uncoded) Unknown Allergy Active Results Component Value Reference Range Notes Comprehensive Met. Panel (No t yet reviewed by provider) Interpretation: Performing Lab:[facility], [address] [place] [phone] Notes/Report: Sodium 136 135-145 mmol/L Potassium 4.3 3.3-5.1 mmol/L Chloride 102 96-108 mmol/L Carbon Dioxide 28 22-29 mmol/L Anion Gap 10 12-20 Blood Urea Nitrogen 15 9-16 mg/dL Creatinine 0.90 0.5-1.4 mg/dL Estimated Glomerular Filt Rate > 60 Chronic Kidney Disease: Estimated GFR < 60 mL/min/1.73m2 Severe Kidney Disease: Estimated GFR < 15 mL/min/1.73m2 Glucose Random 116 60-115 mg/dL Calcium 9.0 8.4-10.2 mg/dL Bilirubin Total 0.3 0.0-1.0 mg/dL Aspartate Amino Transferase 92 5-31 U/L Alanine Aminotransferase 85 0-31 U/L Total Protein 6.8 6.5-8.0 g/dL Albumin Level 4.2 3.5-5.0 g/dL Alkaline Phosphatase 74 39-117 U/L Liver Panel (Not yet reviewe d by provider) Interpretation: Performing Lab:[facility], [address], [place] [address] Notes/Report: Bilirubin Direct 0.1 0.0-0.5 mg/dL Reason For Referral Referring Provider First Name Colt Referring Provider Last Name Jeffry Referring Provider Speciality Internal M edicine Referred Organization [facility] Referred Provider Emiliano Herrera Referred Address [address],[facility] [address],[place], [place],[address], Referred Provider Specialty Gastroentero logy General Notes Dionne Ward 2024 01:43:34 PM > requested a new o blue referral from Dr. Luevano office for visit with Dr. Herrera on 01-19-25 for K21.9 gerd Referral Priority Routine Medications Medication SIG (Take, Route, Frequency, Duration) Notes Start Date End Date Status Bactrim DS 800-160 MG 1 tablet Orally Three times a Week Active Estradiol 0.01 % as directed Vaginal Active Eliquis 2.5 MG TAKE 1 TABLET BY MOUTH TWICE A DAY Oral; Duration: 90 Active Atorvastatin Calcium 10 MG 1 tablet Orally Once a day Active Omeprazole 40 MG TAKE 1 CAPSULE BY MOUTH EVERY DAY; Duration: 90 Active Amiodarone HCl 200 MG TAKE 1 TABLET BY MOUTH TWICE A DAY FOR 90 DAYS Oral; Duration: 60 Active Vitamin B12 1000 MCG 1 tablet Orally Onc e a day twice a week Active Ferrous Sulfate 324 (65 Fe) MG 1 tablet Orally Once a day Active Vitamin D3 1000 UNIT 1 tablet Orally Onc e a day Active Raloxifene HCl 60 MG 1 tablet Orally Onc e a day (Evista) Active LORazepam 0.5 MG TAKE 1/2 TABLET BY MOUTH TWICE A DAY NEEDED FOR ANXIETY Oral; Duration: 30 prn Active Nitrofurantoin Activ e dilTIAZem HCl ER Coated Beads 240 MG TAKE 1 CAPSULE BY MOUTH EVERY DAY Oral; Duration: 90 Active Sucralfate 1 GM 1 tablet on an empty stomach Orally 30-60 minutes before each meal and at bedtime; Duration: 30 day(s) 07/02/2022 Active Sucralfate 1 GM 1 tablet on an empty stomach Orally Before each meal and at bedtime; Duration: 30 day(s) 06/30/2022 Active Immunizations Vaccine Route Administration Date Status Comme nts Influenza Unknown 11/22/2017 Administered Influenza Unknown 11/22/2018 Administered Influenza Unknown 12/22/2020 Administered Influenza Unknown 12/22/2021 Administered Influenza Unknown 12/26/2022 Administered Influenza Unknown 01/20/2024 Administered Problems Problem Type SNOMED Code ICD Code Onset Dates Problem Status W/U Status Risk Notes Problem Anemia due to chronic blood loss (disorder) (591789457) 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 Problem Sevilla's esophagus (400627930) 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) Active confirmed Problem Acute gastric ulcer without hemorrhage, without perforation AND without obstruction (11477859) Acute gastric ulcer without hemorrhage or perforation (K25.3) Active confirmed Problem Chronic gastric ulcer with perforation (69389507) Chronic or unspecified gastric ulcer with perforation (K25.5) Active confirmed Problem Benign neoplasm of stomach (00095563) Polyp of stomach and duodenum (K31.7) Active confirmed Problem Duodenitis (25317136) Duodenitis (K29.80) Active confirmed Problem Blood in stool (049917269) Blood in stool (K92.1) Active confirmed Problem Diverticular disease of colon (173441262) Diverticulosis (K57.90) Active confirmed Problem Abnormal feces (359973975) Heme + stool (R19.5) Active confirmed Problem Hiatal hernia (17946504) Hiatal hernia (K44.9) Active confirmed Problem Benign neoplasm of stomach (13506605) Gastric polyps (K31.7) Active confirmed Problem Iron deficiency anemia due to chronic blood loss (109758749) Iron deficiency anemia due to chronic blood loss (D50.0) Active confirmed Problem Gastroesophageal reflux disease with esophagitis (disorder) (372464037) GERD with esophagitis (K21.0) Active confirmed Problem Gastrointestinal hemorrhage (48897030) UGI bleed (K92.2) Active confirmed Problem Angiodysplasia of colon (45283532) Angiodysplasia of colon (K55.20) Active confirmed Problem Hemorrhage of colon due to diverticulosis (840645735775466) Diverticulosis large intestine w/o perforation or abscess w/bleeding (K57.31) Active confirmed Problem Sevilla esophagus (968834300) 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) Active confirmed Problem Chronic gastritis (4866031) Chronic gastritis (K29.50) Active confirmed Problem Anemia (333982876) Anemia due to other cause, not classified (D64.89) Active confirmed Problem Elevated liver enzymes level (706379972) Elevated liver function tests (R94.5) Active confirmed Problem Anemia due to acute blood loss (728829112) Anemia due to acute blood loss (D62) Active confirmed Problem Gastroesophageal reflux disease with esophagitis (disorder) (932154394) Gastroesophageal reflux disease with esophagitis, unspecified whether hemorrhage (K21.00) Active confirmed Vital Signs Temperature 96.7 degrees Fahrenheit 01/19/2025 Blood pressure diastolic 01 mm Hg 01/19/2025 Height 66.50 in 01/19/2025 Blood pressure systolic 001 mm Hg 01/19/2025 Weight 152.2 lbs 01/19/2025 BMI 24.2 kg/m2 01/19/2025 Encounters Encounter Location Date Provider Diagnosis [facility] [address] [place] [phone] 01/19/2025 Emiliano Herrera Sevilla's esophagus without dysplasia K22.70 ; Hiatal hernia K44.9 ; Iron deficiency anemia due to chronic blood loss D50.0 ; Gastroesophageal reflux disease with esophagitis, unspecified whether hemorrhage K21.00 and Elevated liver function tests R94.5 [facility] [address] [place] [phone] 01/20/2024 Emiliano Herrera Sevilla's esophagus without dysplasia K22.70 ; Hiatal hernia K44.9 ; Iron deficiency anemia due to chronic blood loss D50.0 ; UGI bleed K92.2 and Gastroesophageal reflux disease with esophagitis, unspecified whether hemorrhage K21.00 Assessments Encounter Date Diagnosis (ICD Code) Assessment Notes Treatment Notes Treatment Clinical Notes Section Notes 01/19/2025 Sevilla's esophagus without dysplasia (ICD-10 - K22.70) Continue the same omeprazole and Sucralfate exterminator helper. Overall, Sulema appears well. She is not having any particularly new or worrisome GI complaints at this time. Her blood count has remained stable and have advised her to continue the current regimen of the omeprazole, sucralfate, and iron supplements as that seems to be working well in preventing further GI bleeding while she remains on Eliquis. I do not think she needs any type of endoscopic evaluation at this time. In regard to the elevated LFTs I shall check a follow-up liver profile to see if things have improved. If things have improved and she is doing well I would plan to see her in 1 year for follow-up of her GI issues including the reflux and Sevilla's esophagus. Again, given her age, I do not think she needs any further follow-up surveillance upper endoscopies in regard to the Sevilla's esophagus. If the LFTs remain significantly elevated I advised her that I would be in touch with her to further assess that. I did advise Sulema to call me in the interim if she has any problems or questions I can be of assistance with. Sulema and Jareth were comfortable with this plan. Thank you again for allowing me to participate in Sulema's care. I shall continue to keep you advised of her progress as needed. 01/19/2025 Hiatal hernia (ICD-10 - K44.9) Overall, Sulema appears well. She is not having any particularly new or worrisome GI complaints at this time. Her blood count has remained stable and have advised her to continue the current regimen of the omeprazole, sucralfate, and iron supplements as that seems to be working well in preventing further GI bleeding while she remains on Eliquis. I do not think she needs any type of endoscopic evaluation at this time. In regard to the elevated LFTs I shall check a follow-up liver profile to see if things have improved. If things have improved and she is doing well I would plan to see her in 1 year for follow-up of her GI issues including the reflux and Sevilla's esophagus. Again, given her age, I do not think she needs any further follow-up surveillance upper endoscopies in regard to the Sevilla's esophagus. If the LFTs remain significantly elevated I advised her that I would be in touch with her to further assess that. I did advise Sulema to call me in the interim if she has any problems or questions I can be of assistance with. Sulema and Jareth were comfortable with this plan. Thank you again for allowing me to participate in Sulema's care. I shall continue to keep you advised of her progress as needed. 01/20/2024 Sevilla's esophagus without dysplasia (ICD-10 - K22.70) Continue the same omeprazole and Sucralfate exterminator helper. Overall, Sulema appears quite well. [...] to keep you advised of her progress 01/19/2025 Iron deficiency anemia due to chronic blood loss (ICD-10 - D50.0) Overall, Sulema appears well. She is not having any particularly new or worrisome GI complaints at this time. Her blood count has remained stable and have advised her to continue the current regimen of the omeprazole, sucralfate, and iron supplements as that seems to be working well in preventing further GI bleeding while she remains on Eliquis. I do not think she needs any type of endoscopic evaluation at this time. In regard to the elevated LFTs I shall check a follow-up liver profile to see if things have improved. If things have improved and she is doing well I would plan to see her in 1 year for follow-up of her GI issues including the reflux and Sevilla's esophagus. Again, given her age, I do not think she needs any further follow-up surveillance upper endoscopies in regard to the Sevilla's esophagus. If the LFTs remain significantly elevated I advised her that I would be in touch with her to further assess that. I did advise Sulema to call me in the interim if she has any problems or questions I can be of assistance with. Sulema and Ed were comfortable with this plan. Thank you again for allowing me to participate in Sulema's care. I shall continue to keep you advised of her progress as needed. 01/20/2024 Iron deficiency anemia due to chronic [...] to keep you advised of her progress 01/19/2025 Gastroesophageal reflux disease with esophagitis, unspecified whether hemorrhage (ICD-10 - K21.00) Overall, Sulema appears well. She is not having any particularly new or worrisome GI complaints at this time. Her blood count has remained stable and have advised her to continue the current regimen of the omeprazole, sucralfate, and iron supplements as that seems to be working well in preventing further GI bleeding while she remains on Eliquis. I do not think she needs any type of endoscopic evaluation at this time. In regard to the elevated LFTs I shall check a follow-up liver profile to see if things have improved. If things have improved and she is doing well I would plan to see her in 1 year for follow-up of her GI issues including the reflux and Sevilla's esophagus. Again, given her age, I do not think she needs any further follow-up surveillance upper endoscopies in regard to the Sevilla's esophagus. If the LFTs remain significantly elevated I advised her that I would be in touch with her to further assess that. I did advise Sulema to call me in the interim if she has any problems or questions I can be of assistance with. Sulema and Ed were comfortable with this plan. Thank you again for allowing me to participate in Sulema's care. I shall continue to keep you advised of her progress as needed. 01/20/2024 UGI bleed (ICD-10 - K92.2) Overall, [...] to keep you advised of her progress 01/19/2025 Elevated liver function tests (ICD-10 - R94.5) Overall, Sulema appears well. She is not having any particularly new or worrisome GI complaints at this time. Her blood count has remained stable and have advised her to continue the current regimen of the omeprazole, sucralfate, and iron supplements as that seems to be working well in preventing further GI bleeding while she remains on Eliquis. I do not think she needs any type of endoscopic evaluation at this time. In regard to the elevated LFTs I shall check a follow-up liver profile to see if things have improved. If things have improved and she is doing well I would plan to see her in 1 year for follow-up of her GI issues including the reflux and Sevilla's esophagus. Again, given her age, I do not think she needs any further follow-up surveillance upper endoscopies in regard to the Sevilla's esophagus. If the LFTs remain significantly elevated I advised her that I would be in touch with her to further assess that. I did advise Sulema to call me in the interim if she has any problems or questions I can be of assistance with. Sulema and Ed were comfortable with this plan. Thank you again for allowing me to participate in Sulema's care. I shall continue to keep you advised of her progress as needed. 01/20/2024 Gastroesophageal reflux disease with esophagitis, unspecified [...] Treatment Pending Test Test Name Order Date LIVER PROFILE 01/19/2025 IRON + IBC (FE) 01/30/2021 IRON + IBC (FE) 05/29/2021 IRON + IBC (FE) 03/11/2021 CBC w DIFF 03/11/2021 CBC w DIFF 02/20/2021 CBC w DIFF 01/30/2021 CBC w DIFF 06/28/2022 CBC w DIFF 05/29/2021 Comprehensive Met. Panel 01/19/2025 Liver Panel 01/19/2025 Ferritin 05/29/2021 Ferritin 03/11/2021 Ferritin 01/30/2021 Future Test Test Name Order Date UPPER GI ENDOSCOPY 08/11/2014 COLONOSCOPY 08/11/2014 UPPER GI ENDOSCOPY 01/01/2017 COLONOSCOPY 01/01/2017 UPPER GI ENDOSCOPY 07/27/2019 UPPER GI ENDOSCOPY 02/20/2021 Next Appt Details Provider Name:Emiliano Herrera , 01/19/2026 10:00:00 AM, [address], [address], [place], [address], Insurance Providers Payer Name Payer Address Payer Phone Subscriber Number Group Number Insured Name Patient Relationship to Insured Coverage Start Date Coverage End Date [facility] [employer]S [address] [place] [address] [id number]LEMA Self - patient is the insured Medical (General) History Medical History History ICD Code GERD with HH with long segme nt of Sevilla's esophagus diagnosed in 1994-most recent EGD was in 12/2016-no dysplasia hyperlipidemia hypertension fatty liver-neg w/u-Negative Hepatitis serologies and autoimmune studies- AST 36 and ALT 33, Iron sat 15% with an Iron of 60 in 07/2012 Denies NE,CVA,Lung disease,r enal disease- has had a heart murmur all of her life - she has had cardiac Echos Negative colonoscopy in 04/2002 and - 2nd one was for anemia Pancreatitis in 2003 after E GD-? due to duodenal biopsies-otherwise neg. 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 anemia in fall- -w/u as above with EGD and Colonoscopy in 12/2016- labs neg for celiac disease in 03/2017 and [...] r equiring hospitalization and one unit of blood- seen by Dr. Cantrell- upper endoscopy revealed only her known area of [...] and the Eliquis was stopped. 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
== END 2025-01-19 13:49 | disposition home or self-care (01) ==
LOC: HO.LAB 13:48
PROVIDERS: PCP Internal Medicine; Visit Provider Internal Medicine
DX: R94.5 Abnormal results of liver function studies (principal); R79.89 Other specified abnormal findings of blood chemistry
CPT/HCPCS: 36415; 80053; 80076; 82248

== ENCOUNTER 2025-02-10 08:42 | Outpatient (REF) | payer BC, SELFPAY ==
--- NOTE | ~2025-02-10 | CT_ITS ---
EXAMINATION: CT CHEST WITHOUT THEN WITH IV CONTRAST, CT ABDOMEN PELVIS WITHOUT THEN WITH IV CONTRAST INDICATION: N28.89 - Other specified disorders of kidney and ureter COMPARISON: Comparison is made with the prior CT of the chest dated 06/05/[address] of the abdomen and pelvis dated 12/10/2024.. TECHNIQUE: CT scan of the chest, abdomen and pelvis was performed before and after the intravenous administration of 85 mL Omnipaque 350 using standard departmental protocol. Coronal and sagittal reformatted images were generated and reviewed. Oral contrast material was not administered at the request of the referring physician. This CT exam was performed with one or more of the following dose reduction techniques: automated exposure control, adjustment of the mA and/or kV according to patient size, use of iterative reconstruction technique. DLP: 785 mGy-cm CHEST: THYROID: The thyroid is unremarkable. LUNGS: There is a calcification at the right lung apex. There is mild scarring at the lung bases. No focal airspace opacities or pulmonary nodules are identified. MEDIASTINUM: There is no mediastinal lymphadenopathy. BIBI: There is no hilar lymphadenopathy. CARDIOVASCULATURE: The heart is enlarged. There is no pericardial effusion. The thoracic aorta is normal in caliber. DEGREE OF CORONARY CALCIFICATION: mild PLEURA: There is no pleural effusion. No pneumothorax. MAIN AIRWAYS: The mainstem bronchi and proximal branches are patent. AXILLA: There is no axillary lymphadenopathy. SOFT TISSUES: Unremarkable. BONES: The bones are intact. ABDOMEN: LIVER: The liver is normal in size and contour. No liver mass is identified. The hepatic and portal veins are patent. GALLBLADDER / BILE DUCTS: The gallbladder is unremarkable. There is no intra or extrahepatic biliary ductal dilatation. SPLEEN: The spleen is normal in size. No focal splenic lesion is identified. PANCREAS: The pancreas is unremarkable in appearance. ADRENAL GLANDS: Within normal limits. KIDNEYS/RETROPERITONEUM: The patient is again noted to be status post cryoablation of the previously seen mass in the interpolar region. The ablation cavity is smaller than on the prior study measuring 3.0 x 3.4 x 2.6 cm. There is less inflammatory stranding of the surrounding fat. There is a small enhancing focus at the superior margin of the ablation cavity measuring approximately 10 mm in size. 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 The previously seen loculated fluid collections in the right posterior pararenal space have resolved. There is left renal scarring. There is no hydronephrosis. LYMPH NODES: No abdominal or pelvic lymphadenopathy. VASCULATURE: The abdominal aorta is normal in caliber. MESENTERY/PERITONEUM: No free fluid. No masses. There is no free intraperitoneal gas. STOMACH: The stomach is collapsed, limiting evaluation. SMALL BOWEL: The small bowel is normal in caliber. COLON: The colon is unremarkable. APPENDIX: Normal. URINARY BLADDER/PELVIC ORGANS: The urinary bladder is collapsed, limiting detailed evaluation. The patient is status post hysterectomy. BONES / SOFT TISSUES: No suspicious bony or soft tissue abnormalities. CT/CT abdomen pelvis wo/w IV con IMPRESSION: Status post right renal cryoablation with interval decrease in size of the ablation cavity and resolution of the previously seen fluid collections in the right posterior pararenal space. There is a 10 mm enhancing focus at the superior margin of the ablation cavity, compatible with residual neoplasm. Electronically signed by: Emiliano Cullen MD 02/10/2025 11:30 AM [facility]
--- OUTSIDE RECORDS SUMMARY | 2025-02-10 09:54 | XMS_ITS | Clinical Summary ---
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 Name Role Phone Colt Teran MD Primary Care Provider [phone] Allergies Active Allergy Reactions Criticality Noted Date [...] Active ferrous sulfate 325 mg (65 mg [place] iron) EC tablet 1 tablet Orally Once [...] LEVEL (ALANINE AMINOTRANSFERASE) 1944 CREATININE LEVEL 1944 TSH LEVEL 1944 DEPRESSION SCREENING 1956 OSTEOPOROSIS SCREENING INITIAL (ONE-TIME) 01/08/2009 INFLUENZA VACCINE (#1) 2024 , 12/20/2022, 12/24/2021, Additional history exists COVID-19 VACCINE (2024- season) 2024 08/23/2024, 12/09/2023, 09/18/2023, Additional history exists Adult Td,Tdap Booster 01/01/2033 01/01/2023 RSV VACCINE Completed 01/08/2023 PNEUMOCOCCAL VACCINES (50+ years) Completed 01/29/2023, 12/27/2016, 12/29/2010 ZOSTER VACCINES Completed 05/26/2023, 04/2023, 02/10/2017 HEPATITIS A VACCINES Aged Out No long er eligible based on patient's age to complete this topic HIB VACCINES Aged Out No longer eligi ble based on patient's age to complete this topic IPV VACCINES Aged Out No longer eligi ble based on patient's age to complete this topic MENINGOCOCCAL VACCINES (ACWY) Aged Out No longer eligible based on patient's age to complete this topic MENINGOCOCCAL VACCINES (B) Aged Out N o longer eligible based on patient's age to complete this topic Medical Devices Not on file [place] [address] [place] [address] [place] [address] [place] [address] Care Teams Gravure Printing Machinist Relationship Specialty Start Date End Date Colt Teran MD [address] [place] [address] [place] [address] PCP - General Internal Medicine 09/09/24 Additional Source Comments The information contained in this document represents components of the legal health record. It is not the complete legal health record.[facility]
--- OUTSIDE RECORDS SUMMARY | 2025-02-10 09:54 | XMS_ITS | Patient Health Record ---
Author Organization [facility] Address [address] [place] [id number] Care Team Providers Care Library Technology Instructor Name Role Phone Jeffry CAROLINA, Colt Primary Care Provider Emiliano Chau [phone] Allergies Allergen (clinical drug ingredient) Drug/Non Drug Allergy documented on EMR Reaction Allergy Type Onset Date Status enflurane (uncoded) Unknown Allergy Active ethrane (uncoded) Unknown Allergy Ac tive general anesthesia (uncoded) Unknown Allergy Active halothane (uncoded) Unknown Allergy Active negran (uncoded) Unknown Allergy Act jose piperacillin / tazobactam zosyn (uncoded) Unknown Allergy Active sulfamethoxazole / trimethoprim Bactrim stomach upset Drug Allergy Active Results Component Value Reference Range Flag Notes Comprehensive Met. Panel (No t yet reviewed by provider) Interpretation: Performing Lab:[facility], [address] [place] [phone] Notes/Report: Sodium 136 135-145 mmol/L N Potassium 4.3 3.3-5.1 mmol/L N Chloride 102 96-108 mmol/L N Carbon Dioxide 28 22-29 mmol/L N Anion Gap 10 12-20 L Blood Urea Nitrogen 15 9-16 mg/dL N Creatinine 0.90 0.5-1.4 mg/dL N Estimated Glomerular Filt Rate > 60 Chronic Kidney Disease: Estimated GFR < 60 mL/min/1.73m2 Severe Kidney Disease: Estimated GFR < 15 mL/min/1.73m2 Glucose Random 116 60-115 mg/dL H Calcium 9.0 8.4-10.2 mg/dL N Bilirubin Total 0.3 0.0-1.0 mg/dL N Aspartate Amino Transferase 92 5-31 U/L H Alanine Aminotransferase 85 0-31 U/L H Total Protein 6.8 6.5-8.0 g/dL N Albumin Level 4.2 3.5-5.0 g/dL N Alkaline Phosphatase 74 39-117 U/L N Liver Panel Reviewed date:01/23/2025 01:59:51 PM Interpretation: Performing Lab:[facility], [address] [place] [address] Notes/Report: Bilirubin Direct 0.1 0.0-0.5 mg/dL N Reason For Referral Referring Provider First Name Colt Referring Provider Last Name Jeffry Referring Provider Speciality Internal M edicine Referred Organization [facility] Referred Provider Emiliano Herrera Referred Address [address] [place] [address],[place] [address],[place], [place],[address], Referred Provider Specialty Gastroentero logy General Notes Dionne Ward 2024 01:43:34 PM > requested a new o blue referral from Dr. Luevano office for visit with Dr. Herrera on 01-19-25 for K21.9 gerd Referral Priority Routine Medications Medication SIG (Take, Route, Frequency, Duration) Notes Start Date End Date Status Bactrim DS 800-160 MG Tablet 1 tablet Orally Three times a Week Active Estradiol 0.01 % Cream as directed Vaginal Active Eliquis 2.5 MG Tablet TAKE 1 TABLET BY MOUTH TWICE A DAY Oral; Duration: 90 Active Atorvastatin Calcium 10 MG Tablet 1 tablet Orally Once a day Active Omeprazole 40 MG Capsule Delayed Release TAKE 1 CAPSULE BY MOUTH EVERY DAY; Duration: 90 Active Amiodarone HCl 200 MG Tablet TAKE 1 TABLET BY MOUTH TWICE A DAY FOR 90 DAYS Oral; Duration: 60 Active Vitamin B12 1000 MCG Tablet Extended Release 1 tablet Orally Once a day twice a week Active Ferrous Sulfate 324 (65 Fe) MG Tablet Delayed Release 1 tablet Orally Once a day Active Vitamin D3 1000 UNIT Tablet 1 tablet Orally Once a day Active Raloxifene HCl 60 MG Tablet 1 tablet Orally Once a day (Evista) Active LORazepam 0.5 MG Tablet TAKE 1/2 TABLET BY MOUTH TWICE A DAY NEEDED FOR ANXIETY Oral; Duration: 30 prn Active Nitrofurantoin Activ e dilTIAZem HCl ER Coated Beads 240 MG Capsule Extended Release 24 Hour TAKE 1 CAPSULE BY MOUTH EVERY DAY Oral; Duration: 90 Active Sucralfate 1 GM Tablet 1 tablet on an em pty stomach Orally 30-60 minutes before each meal and at bedtime; Duration: 30 day(s) 07/02/2022 Active Sucralfate 1 GM Tablet 1 tablet on an em pty stomach Orally Before each meal and at bedtime; Duration: 30 day(s) 06/30/2022 Active Immunizations Vaccine Route Administration Date Status Comme nts Influenza Unknown 11/22/2017 Administered Influenza Unknown 11/22/2018 Administered Influenza Unknown 12/22/2020 Administered Influenza Unknown 12/22/2021 Administered Influenza Unknown 12/26/2022 Administered Influenza Unknown 01/20/2024 Administered Social History Social History Additional Details Category Social Info Options Details Miscellaneous: Marital status: single 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, 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 [employer] Section Notes: She does not smoke or use an y significant amounts of alcohol She does not smoke or use an y significant amounts of alcohol She does not smoke or use an y significant amounts of alcohol She does not smoke or use an y significant amounts of alcohol She does not smoke or use an y significant amounts of alcohol She does not smoke or use an y significant amounts of alcohol She does not smoke or use an y significant amounts of alcohol She does not smoke or use an y significant amounts of alcohol She does not smoke or use an y significant amounts of alcohol She does not smoke or use an y significant amounts of alcohol She does not smoke or use an y significant amounts of alcohol She does not smoke or use an y significant amounts of alcohol She does not smoke or use an y significant amounts of alcohol She does not smoke or use an y significant amounts of alcohol Problems Problem Type SNOMED Code ICD Code Onset Dates Problem Status W/U Status Risk Notes Problem Anemia due to chronic blood loss (disorder) (315382775) 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 Problem Sevilla's esophagus (596108390) 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) Active confirmed Problem Acute gastric ulcer without hemorrhage, without perforation AND without obstruction (85740834) Acute gastric ulcer without hemorrhage or perforation (K25.3) Active confirmed Problem Chronic gastric ulcer with perforation (15569972) Chronic or unspecified gastric ulcer with perforation (K25.5) Active confirmed Problem Benign neoplasm of stomach (72054884) Polyp of stomach and duodenum (K31.7) Active confirmed Problem Duodenitis (03054137) Duodenitis (K29.80) Active confirmed Problem Blood in stool (891914918) Blood in stool (K92.1) Active confirmed Problem Diverticular disease of colon (486835485) Diverticulosis (K57.90) Active confirmed Problem Abnormal feces (656749503) Heme + stool (R19.5) Active confirmed Problem Hiatal hernia (63117004) Hiatal hernia (K44.9) Active confirmed Problem Benign neoplasm of stomach (63352434) Gastric polyps (K31.7) Active confirmed Problem Iron deficiency anemia due to chronic blood loss (661929919) Iron deficiency anemia due to chronic blood loss (D50.0) Active confirmed Problem Gastroesophageal reflux disease with esophagitis (disorder) (504024758) GERD with esophagitis (K21.0) Active confirmed Problem Gastrointestinal hemorrhage (82137199) UGI bleed (K92.2) Active confirmed Problem Angiodysplasia of colon (71088528) Angiodysplasia of colon (K55.20) Active confirmed Problem Hemorrhage of colon due to diverticulosis (381429238984951) Diverticulosis large intestine w/o perforation or abscess w/bleeding (K57.31) Active confirmed Problem Sevilla esophagus (140766712) 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) Active confirmed Problem Chronic gastritis (5205662) Chronic gastritis (K29.50) Active confirmed Problem Anemia (573629885) Anemia due to other cause, not classified (D64.89) Active confirmed Problem Elevated liver enzymes level (077936947) Elevated liver function tests (R94.5) Active confirmed Problem Anemia due to acute blood loss (230643960) Anemia due to acute blood loss (D62) Active confirmed Problem Gastroesophageal reflux disease with esophagitis (disorder) (840106278) Gastroesophageal reflux disease with esophagitis, unspecified whether hemorrhage (K21.00) Active confirmed Vital Signs Temperature 96.7 degrees Fahrenheit 01/19/2025 Blood pressure diastolic 01 mm Hg 01/19/2025 Height 66.50 in 01/19/2025 Blood pressure systolic 001 mm Hg 01/19/2025 Weight 152.2 lbs 01/19/2025 BMI 24.2 kg/m2 01/19/2025 Encounters Encounter Location Date Provider Diagnosis [facility] [address] [place] [address] 01/19/2025 Emiliano Herrera Sevilla's esophagus without dysplasia K22.70 ; Elevated liver function tests R94.5 ; Hiatal hernia K44.9 ; Iron deficiency anemia due to chronic blood loss D50.0 and Gastroesophageal reflux disease with esophagitis, unspecified whether hemorrhage K21.00 Assessments Encounter Date Diagnosis (ICD Code) Assessment Notes Treatment Notes Treatment Clinical Notes Section Notes 01/19/2025 Sevilla's esophagus without dysplasia (ICD-10 - K22.70) 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 Overall, Sulema appears well. She is not [...] advised of her progress as needed. 01/19/2025 Elevated liver function tests (ICD-10 - [...] advised of her progress as needed. 01/19/2025 Iron deficiency anemia due to chronic [...] advised of her progress as needed. 01/19/2025 Gastroesophageal reflux disease with esophagitis, unspecified [...] you advised of her progress as needed. Plan Of Treatment Pending Test Test Name Order Date LIVER PROFILE 01/19/2025 IRON + IBC (FE) 01/30/2021 IRON + IBC (FE) 05/29/2021 IRON + IBC (FE) 03/11/2021 CBC w DIFF 03/11/2021 CBC w DIFF 05/29/2021 CBC w DIFF 01/30/2021 CBC w DIFF 06/28/2022 CBC w DIFF 02/20/2021 Comprehensive Met. Panel 01/19/2025 Ferritin 01/30/2021 Ferritin 05/29/2021 Ferritin 03/11/2021 Future Test Test Name Order Date UPPER GI ENDOSCOPY 08/11/2014 COLONOSCOPY 08/11/2014 UPPER GI ENDOSCOPY 01/01/2017 COLONOSCOPY 01/01/2017 UPPER GI ENDOSCOPY 07/27/2019 UPPER GI ENDOSCOPY 02/20/2021 Next Appt Details Provider Name:Emiliano hCin Sharon , 01/19/2026 10:00:00 AM, [address] [place] [address], [address], [place], [address], Insurance Providers Payer Name Payer Address Payer Phone Subscriber Number Group Number Insured Name Patient Relationship to Insured Coverage Start Date Coverage End Date [facility] [employer] [address] [place] [address] [id number] [employer]LEMA SWIFT Self - patient is the insured Medical (General) History Medical History History ICD Code GERD with HH with long segme nt of Sevilla's esophagus diagnosed in 1994-most recent EGD was in 12/2016-no dysplasia hyperlipidemia hypertension fatty liver-neg w/u-Negative Hepatitis serologies and autoimmune studies- AST 36 and ALT 33, Iron sat 15% with an Iron of 60 in 07/2012 Denies [place],CVA,Lung disease,r enal disease- has had a heart murmur all of her life - she has had cardiac Echos Negative colonoscopy in 04/2002 and 4- 2nd one was for anemia Pancreatitis in [...] by - she is going to the [facility] in March of 2024 for further testing including a stress test with echocardiogram and either a MRI or CT scan of the heart 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
[2025-02-10] MEDS: iohexoL 350 MG/ML 100 ML INFUS..BTL 85 ML IV (11:03)
== END 2025-02-10 08:43 | disposition home or self-care (01) ==
LOC: HO.CT 08:42
PROVIDERS: PCP Internal Medicine; Visit Provider Nurse Practitioner Family
DX: N28.89 Other specified disorders of kidney and ureter (principal); Z98.890 Other specified postprocedural states
CPT/HCPCS: 71270; 74178; Q9967

== ENCOUNTER → 2025-02-10 08:43 | Outpatient (BNV) | payer BC, SELFPAY | PROVIDERS: PCP Internal Medicine; Visit Provider Radiology Diagnostic Radiology | DX: N28.89 Other specified disorders of kidney and ureter (principal); Z98.890 Other specified postprocedural states | CPT/HCPCS: 71270; 74178 ==

== ENCOUNTER 2025-03-01 09:57 | Outpatient (REF) | payer BC, SELFPAY ==
[2025-03-01 10:59] LABS: Appearance Urine Clear; Glucose Urine UA Negative (Negative); PH 7.5 (5.0-9.0); Specific Gravity - Urine 1.010 (1.005-1.025); UMIC TRIGGER UA YES
== END 2025-03-01 09:58 | disposition home or self-care (01) ==
LOC: HO.LAB 09:57
PROVIDERS: PCP Internal Medicine; Visit Provider Nurse Practitioner Family
DX: R30.0 Dysuria (principal); N39.0 Urinary tract infection, site not specified
CPT/HCPCS: 81001; 87086

== ENCOUNTER 2025-03-07 10:52 | Outpatient (AMB) | payer BC, SELFPAY ==
--- NOTE | 2025-03-07 11:02 | A.OFFVIS_ITS ---
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 Instructions: elevated LFTs cholecalciferol (vitamin D3) 25 mcg PO DAILY 90 days cyanocobalamin (vitamin B-12) (Vitamin B-12) 1,000 mcg PO MOTH diltiazem HCl CD 240 mg See Protocol PO DAILY 90 days Eliquis (apixaban) 2.5 mg PO BID 90 days NS estradiol 0.01%(0.1mg/gram) 2 grams vaginal Q48H PRN ferrous sulfate 325 mg PO BID [FRONT-WHEELED WALKER As directed ; Ht = 5'6 ; Wt = 164 lbs; Rx is for INDEFINITE/PERMANENT/FOREVER/LIFETIME USE] lorazepam 0.5 mg PO BID PRN nitrofurantoin monohyd/m-cryst 100 mg (Macrobid) 100 mg PO BID 10 days omeprazole 40 mg PO DAILY@0630 ondansetron 4 mg PO Q8H PRN raloxifene 60 mg PO DAILY 90 days [SHOWER CHAIR As directed; Rx is for INDEFINITE/PERMANENT/FOREVER/LIFETIME USE] sucralfate (Carafate) 1 g PO QIDACHS 30 days HPI Comments Details: Sulema is an 80-year-old female patient of Dr. Teran who was accompanied by her significant other at today's office visit. She has a past medical history of recurrent urinary tract infections, degenerative disc disease of thoracic spine, paroxysmal AFib, hypertrophic cardiomyopathy, anemia, gastric ulcer, vitamin-D deficiency, osteoarthritis, hiatal hernia, cardiac murmur, anemia, osteopenia, Sevilla's esophagus, hypertension, and hypercholesteremia. She presents to the office today for follow-up. Of note, patient underwent CT- guided cryoablation of her right renal mass on 11/23/24. She subsequently developed the retroperitoneal bleed and was admitted at the hospital overnight for close monitoring and her H&H remained stable never requiring blood transfusion and she was eventually discharged home. In discussion with the patient today she reports she had been feeling and doing well up until a few days ago when she started experiencing UTI like symptoms (dysuria urinary urgency, and urinary frequency) she has since called the office and a urine culture was ordered and performed. These results were reviewed and communicated with the patient today. As noted and trended below. She reports she is 5 days and of Macrobid therapy and does no improvement in lower urinary tract symptoms. She does continue to experience urinary frequency however reports it is an improvement from initial symptoms. Labs are as follows: Hemoglobin: 12/16 14.1, 12/16 11.7, 12/16 11.6, 12/16 10.4, 12/16 11.0, 12/16 10.4, 12/16 10.6, 12/16 11.2, 12/16 12.2 Hematocrit: 12/16 41.2, 12/16 34.8, 12/16 33.4, 12/16 30.2, 12/16 33.2, 12/16 30.3, 12/16 31.8, 12/16 33.9, 12/16 36.1 . 04/17 E coli 07/16 mixed bacterial tani characteristics of urogenital contamination 11/15 50,000 to 100,000 cfu/ml Mixed bacterial tani characteristic of urogenital contamination. 01/15 E coli 03/17 10,000 to 50,000 cfu/ml Mixed bacterial tani characteristic of urogenital contamination. Most recent CT abdomen and pelvis as well as chest results were reviewed with the patient today 02/15 status post right renal cryoablation with interval decrease in size of ablation cavity and resolution of previously seen fluid collections in the right posterior parenchymal space. There is a 10 mm enhancing focus at the superior margin of the ablation cavity, compatible with residual neoplasm. There is a calcification in the right lung apex. There is mild scarring in the lung bases. No focal airspace opacities or pulmonary nodules are identified. There is no lymphadenopathy noted. She reports compliance with Estrace cream as prescribed. We did discuss potential causes of recurrent urinary tract infections. We also discussed initiation of methenamine and vitamin-C. She denies incontinence, nocturia, visible/gross hematuria, dysuria, foul smelling urine, changes to urinary stream, fever, and or chills. She is happy with her current voiding parameters. All questions were answered to the best of my ability. We did discussed undergoing surveillance monitoring with interval imaging. She is agreeable. She otherwise offers no other issues or concerns at this time [facility] Medical History Degenerative joint disease of thoracic spine Gastrointestinal bleed Paroxysmal atrial fibrillation Afib Hypertrophic cardiomyopathy Atrial fibrillation with RVR Anemia Gastric ulcer History of blood transfusion Vitamin B12 deficiency Overweight (BMI 25.0-29.9) Primary osteoarthritis of hand Vitamin D deficiency Osteopenia Anemia Cardiac murmur Hiatal hernia Sevilla's esophagus Benign essential hypertension Pure hypercholesterolemia Surgical History H/O colonoscopy History of esophagogastroduodenoscopy (EGD) History of appendectomy History of hysterectomy Family History Father Hypertension Mother Stroke Social History Household Members: None Housing: House Are you a primary long term care pharmacist to a significant other at home: No Do you presently have visiting nurse or other home services: No Alcohol intake: never Patient Tobacco Use Status: Never used Tobacco e-Cigarette/Vaping Use: Never Used Second Hand Smoke Exposure: No Advance Directives Date on File: 01/22/21 service: No Current occupational status: retired Cognitive needs: Yes (walker, cane) Hearing needs: No Vision needs: Yes (glasses) Review of Systems Eyes Reports no additional complaints ENT Reports no additional complaints Card Reports as per HPI Resp Reports no additional complaints GI Reports as per [facility] Reports as per [facility] Musc Reports as per [facility] Neuro Reports no additional complaints Psych Reports no additional complaints Endo Reports as per [facility] Basil/Lymph Reports as per [facility] Physical Exam Const General: cooperative, healthy appearing, comfortable, no acute distress, well developed, alert and awake Orientation/consciousness: patient oriented x3 Limitations: ambulation with walker HEENT Head: Yes normal to inspection, Yes normocephalic and Yes atraumatic Ears: hearing grossly normal bilaterally Eyes General: appearance normal, both eyes and all related structures Neck Neck: Yes normal visual inspection and Yes trachea midline Chest Chest palpation & inspection: normal inspection of the chest Resp Effort & Inspection: normal respiratory effort and able to speak in complete sentences Cardio Rate: regular rate GI Inspection: Yes normal to inspection Back/Spine/Pelvis Other: As per [facility] Skin General skin exam: no rashes or lesions noted Neuro General: patient oriented x3 Extrem General: Yes normal to inspection Psych Appearance: grossly normal and well kempt Mental Status: mental status grossly normal Speech and movement: Normal speech and movement present and Clear speech present Affect: normal affect Attitude: cooperative Thought process: Normal thought process present Thought content: Normal thought content present Insight: Fair insight present (Psych) Judgement: Fair judgement present (Psych) Office Procedures Post Void Residual Post Residual Void Post Void Residual (PVR): 28 [id number] Void Residual by ultrasound Results AMB Urinalysis, Automated UA Leukoctes 0 Mookie/uL Last Edit by Emily Walsh [facility] on 03/07/25 11:19 UA Nitrite Negative Last Edit by Emily Walsh [facility] on 03/07/25 11:19 UA Urobilinogen 0.2 mg/dL Last Edit by Emily Walsh [facility] on 03/07/25 11:1 9 UA Protein 15 mg/dL Last Edit by Emily Walsh [facility] on 03/07/25 11:19 UA pH 6.5 Last Edit by Emily Walsh [facility] on 03/07/25 11:19 UA Blood 0 Orion/uL Last Edit by Emily Walsh [facility] on 03/07/25 11:19 UA Specific [place] 1.010 Last Edit by Emily Walsh [facility] on 03/07/25 11: 19 UA Ketone Negative Last Edit by SUN Doyle on 03/07/25 11:19 UA Bilirubin 0 mg/dL Last Edit by SUN Doyle on 03/07/25 11:19 UA Glucose 0 mg/dL Last Edit by SUN Doyle on 03/07/25 11:19 Results Reviewed Results Reviewed: Laboratory Last Values Urine pH (Auto) 6.5 03/07/25 11:19 Specific [place] (Auto) 1.010 03/07/25 11:19 Urine Protein (Auto) 15 mg/dL 03/07/25 11:19 Glucose (UA)(Auto) 0 mg/dL 03/07/25 11:19 Urine Ketones (Auto) Negative 03/07/25 11:19 Urine Blood (Auto) 0 Orion/uL 03/07/25 11:19 Urine Nitrite (Auto) Negative 03/07/25 11:19 Urine Bilirubin (Auto) 0 mg/dL 03/07/25 11:19 Urine Urobilinogen (Auto) 0.2 mg/dL 03/07/25 11:19 Leukocyte Esterase (Auto) 0 Mookie/uL 03/07/25 11:19 Date of Service: 02/10/25 Procedure(s): CT abdomen pelvis wo/w IV con Procedure(s): CT chest wo/w IV con CHEST: THYROID: The thyroid is unremarkable. LUNGS: There is a calcification at the right lung apex. There is mild scarring at the lung bases. No focal airspace opacities or pulmonary nodules are identified. MEDIASTINUM: There is no mediastinal lymphadenopathy. BIBI: There is no hilar lymphadenopathy. CARDIOVASCULATURE: The heart is enlarged. There is no pericardial effusion. The thoracic aorta is normal in caliber. DEGREE OF CORONARY CALCIFICATION: mild PLEURA: There is no pleural effusion. No pneumothorax. MAIN AIRWAYS: The mainstem bronchi and proximal branches are patent. AXILLA: There is no axillary lymphadenopathy. SOFT TISSUES: Unremarkable. BONES: The bones are intact. ABDOMEN: LIVER: The liver is normal in size and contour. No liver mass is identified. The hepatic and portal veins are patent. GALLBLADDER / BILE DUCTS: The gallbladder is unremarkable. There is no intra or extrahepatic biliary ductal dilatation. SPLEEN: The spleen is normal in size. No focal splenic lesion is identified. PANCREAS: The pancreas is unremarkable in appearance. ADRENAL GLANDS: Within normal limits. KIDNEYS/RETROPERITONEUM: The patient is again noted to be status post cryoablation of the previously seen mass in the interpolar region. The ablation cavity is smaller than on the prior study measuring 3.0 x 3.4 x 2.6 cm. There is less inflammatory stranding of the surrounding fat. There is a small enhancing focus at the superior margin of the ablation cavity measuring approximately 10 mm in size. 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 The previously seen loculated fluid collections in the right posterior pararenal space have resolved. There is left renal scarring. There is no hydronephrosis. LYMPH NODES: No abdominal or pelvic lymphadenopathy. VASCULATURE: The abdominal aorta is normal in caliber. MESENTERY/PERITONEUM: No free fluid. No masses. There is no free intraperitoneal gas. STOMACH: The stomach is collapsed, limiting evaluation. SMALL BOWEL: The small bowel is normal in caliber. COLON: The colon is unremarkable. APPENDIX: Normal. URINARY BLADDER/PELVIC ORGANS: The urinary bladder is collapsed, limiting detailed evaluation. The patient is status post hysterectomy. BONES / SOFT TISSUES: No suspicious bony or soft tissue abnormalities. IMPRESSION: Status post right renal cryoablation with interval decrease in size of the ablation cavity and resolution of the previously seen fluid collections in the right posterior pararenal space. There is a 10 mm enhancing focus at the superior margin of the ablation cavity, compatible with residual neoplasm. Assessment & Plan Assessment & Plan (1) Renal mass, right: Code(s): N28.89 - Other specified disorders of kidney and ureter Category: Medical (2) S/P cryoablation of mass of kidney: Code(s): Z98.890 - Other specified postprocedural states Category: Surgical (3) Recurrent urinary tract infection: Code(s): N39.0 - Urinary tract infection, site not specified Category: Medical Plan In office urinalysis results reviewed with the patient today; as noted above. PVR [address] of the chest and renal mass protocol results reviewed with the patient today; as noted above. Will continue with surveillance monitoring. Continue Estrace cream as discussed and prescribed. We did discussed potential initiation of methenamine and vitamin-C given recurrent urinary tract infections. All questions were answered. Complete antibiotic therapy as prescribed. We did discuss worsening symptoms. Discussed UTI prevention with D mannose supplement, vitamin-C, increasing fluid intake, behavioral therapy with timed voiding, perineal hygiene and postcoital voiding, and management of constipation with stool softeners and increased fiber intake. She reports be happy with current voiding parameters. Will obtain renal ultrasound in 3-6 months. Follow-up in 3-6 months with imaging to be completed prior; or sooner with any issues, concerns, and or questions. Orders: Orders AMB Urinalysis Automated Today Z13.9 - Encounter for screening, unspecified AMB Post Void Residual by ultrasound Today N39.0 - Urinary tract infection, site not specified US renal BI 3 Months N28.89 - Other specified disorders of kidney and ureter, Z98.890 - Other specified postprocedural states Patient Instructions: The patient had an opportunity to ask questions regarding the treatment plan. All questions were answered. Physical exam, labs, and imaging were discussed and reviewed in detail. As well as risks, benefits, and discussion of treatment choices. No major barriers to understanding were identified. The patient expressed understanding and agreement with the above treatment plan. The patient was made aware they should contact our office by phone for worsening of their current condition, the appearance of new symptoms, or with any questions or concerns. Compliance is encouraged with any medications and follow up testing that is ordered. It is a privilege to be allowed the opportunity to participate in? your urological care.? Again, if you have any questions or concerns If you have any questions or concerns please do not hesitate to contact me. The office is [phone]. This note is constructed using voice recognition software. While every effort has been made to ensure accuracy cad manager errors may have been included. Yours sincerely, SALLY Ferguson- Coding Level of Care Code Est Pt Level 4 (91525) Add On Problem Visit Only Diagnoses Renal mass, right N28.89 S/P cryoablation of mass of kidney Z98.890 Recurrent urinary tract infection N39.0 CPT Codes Post Residual Void - PVR CPT Code: 75510-Upws Void Residual by ultrasound ([id number])
== END 2025-03-07 11:39 | disposition home or self-care (01) ==
LOC: HO.HUSH 10:53
PROVIDERS: PCP Internal Medicine; Visit Provider Nurse Practitioner Family
DX: N28.89 Other specified disorders of kidney and ureter (principal); Z98.890 Other specified postprocedural states; N39.0 Urinary tract infection, site not specified; Z13.9 Encounter for screening, unspecified
CPT/HCPCS: 99214

== ENCOUNTER → 2025-03-07 10:52 | Outpatient (BNVA) | payer BC, SELFPAY | PROVIDERS: PCP Internal Medicine; Visit Provider Nurse Practitioner Family | DX: N39.0 Urinary tract infection, site not specified (principal); N28.89 Other specified disorders of kidney and ureter; Z98.890 Other specified postprocedural states | CPT/HCPCS: 51798; 81003 ==